=== PATIENT | male | born 1965 | race Caucasian/White ===

== ENCOUNTER 2019-08-27 08:27 | Outpatient (CLI) | payer OTHER, SELFPAY ==
--- NOTE | 2019-08-27 | XRR_ITS ---
PROCEDURE INFORMATION: Exam: XR Chest, 2 Views Exam date and time: 08/28/2019 5:26 PM Age: 54 years old Clinical indication: Pre-operative exam; Cardiovascular screening and respiratory screening exam; Additional info: Pre op TECHNIQUE: Imaging protocol: XR of the chest Views: 2 views. COMPARISON: CR Chest 1 [place] [id number] 07/03/2019 6:11 AM FINDINGS: Lungs: Unremarkable. No consolidation. Pleural space: Unremarkable. No pleural effusion. No pneumothorax. Heart/Mediastinum: Unremarkable. No cardiomegaly. Bones/joints: Unremarkable. XR/XR chest 2V* [id number] IMPRESSION: No acute findings.
[2019-08-27 08:41] VITALS: BMI 28.1
--- NOTE | 2019-08-27 08:43 | ECG_ITS ---
NAME OF STUDY: LEXISCAN SESTAMIBI STRESS TEST INDICATION: Pre Operative Clearance FAX RESULTS TO [facility] [place] ATTN: CRITICAL CARE CLINICAL NURSE SPECIALIST FAX [phone] NOTE: Please note that this is the electrocardiogram portion of the Lexiscan/Sestamibi stress test. The perfusion scan will be documented separately. DATA: Baseline heart rate was 59 beats per minute. Baseline blood pressure was 145/91 millimeters of mercury. Target heart rate was 167. Maximum heart rate achieved was 95. which was 56 % of the predicted target heart rate. Maximum blood pressure was 163/97 millimeters of mercury. The reason for ending the test was completion of the protocol. The patient did not experience any symptoms. ELECTROCARDIOGRAM: BASELINE: Sinus bradycardia. Normal axis. Interventricular conduction delay, no ST-T changes suggestive of ischemia noted. No arrhythmia noted. EXERCISE: After Lexiscan injection, no ST-T changes suggestive of ischemic noted. No arrhythmia noted. CONCLUSION: Please note due to baseline abnormality of the EKG specificity and sensitivity of the EKG portion of LexiScan MIBI stress test will be low 1. EKG not suggestive of ischemia 2. Lexiscan injection unremarkable. 3. Perfusion scan will be documented separately. Electronically Signed On 08-27-2019 18:46:04 CREDIT DEPARTMENT MANAGER by Jeff Eubanks M.D. [email or web address]
--- NOTE | 2019-08-27 08:54 | ECG_ITS ---
Measurements Intervals [place] Rate: 69 P: 47 WI: 185 QRS: -46 QRSD: 106 T: 29 QT: 392 QTc: 420 SINUS RHYTHM LEFT ANTERIOR FASCICULAR BLOCK [QRS AXIS <= -45, QR IN I, RS IN II] POSSIBLE LEFT VENTRICULAR HYPERTROPHY [VOLTAGE CRITERIA PLUS LAE OR QRS WIDENING] NONSPECIFIC ST & T-WAVE ABNORMALITY Compared to ECG 07/03/2019 09:14:12 Left anterior fascicular block now present T-wave abnormality now present Left-axis deviation no longer present Electronically Signed On 08-27-2019 17:12:55 SUPERVISING FIRE MARSHAL by Helene Acevedo M.D. [email or web address]
--- NOTE | 2019-08-27 09:17 | SUR.PREOP ---
Patient reports no pain pre procedure.
[2019-08-27 10:20] LABS: Alanine Aminotransferase 11 U/L (0-41); Albumin Level 4.3 g/dL (3.5-5.2); Alkaline Phosphatase 227 IU/L (40-130); Anion Gap 18.3 (5-19); Aspartate Amino Transferase 26 U/L (0-40); Blood Urea Nitrogen 28 mg/dL (6-20); Calcium 9.6 mg/Dl (8.6-10.0); Carbon Dioxide 25 mmol/L (22-29); Chloride 97 mmol/L (98-107); Globulin 3.1 g/dL (1.3-4.6); Glomerular Filtration Rate 7.4 mL/min (90-130); Glucose 106 mg/dL (74-109); Phosphorus 2.9 mg/dL (2.5-4.5); Potassium 3.3 mmol/L (3.5-5.1); Sodium 137 mmol/L (136-145); Total Bilirubin 0.4 mg/dL (0.15-1.2); Total Protein 7.4 g/dL (6.6-8.7)
[2019-08-27 10:25] LABS: Basophils % 0.4 %; Eosinophils # 0.1 10^3/uL (0.0-0.8); Eosinophils % 1.2 %; Hematocrit 40.4 % (42.0-52.0); Hemoglobin 12.9 g/dL (11.7-16.6); Lymphocytes # 1.8 10^3/uL (0.8-4.8); Lymphocytes % 21.6 %; Mean Corpuscular HGB Conc 31.9 g/dL (30.0-36.0); Mean Corpuscular Hemoglobin 27.7 pg (28.0-34.0); Mean Corpuscular Volume 86.7 fL (80-94); Monocytes # 0.5 10^3/uL (0.2-0.9); Neutrophils # 5.8 10^3/uL (1.8-7.7); Neutrophils % 70.6 %; Nucleated Red Blood Cells % 0 %; Platelet Count 291 10^3/cmm (130-400); Red Blood Count 4.66 10^6/uL (4.1-5.3); Red Cell Distribution Width 15.8 % (12.1-15.1); White Blood Count 8.2 10^3/uL (4.0-10.0)
--- NOTE | 2019-08-27 10:48 | SUR.PREOP ---
Patient report no pain or discomfort prior to the start of the procedure.
[2019-08-27] MEDS: regadenoson 0.4 Mg/5 ml Syringe IVP (10:49)
--- NOTE | 2019-08-27 10:57 | SUR.PREOP ---
Patient report no pain or discomfort prior to the start of the procedure.
[2019-08-27 10:58] VITALS: BP 153/89; PULSE 75
[2019-08-27 11:13] LABS: Prostate Specific Antigen 0.31 ng/mL (0-4)
[2019-08-27 11:15] LABS: Calcium 9.1 mg/dL (8.8-10.2); Parathyroid Hormone 301.8 pg/mL (15-65)
[2019-08-31 11:20] LABS: Anti-HIV 1 and 2 AB & P24 AG Non-Reactive (Nonreactive)
[2019-08-31 11:28] LABS: Hepatitis B Surface Antibody 20.75
[2019-08-31 13:02] LABS: HEP C RNA Viral Load Quant <1.18 NOT DETECTED Log IU/mL (NOT DETECTED); HEP C RNA Viral Load Quant <15 NOT DETECTED IU/mL (NOT DETECTED)
== END 2019-08-27 08:28 | disposition home or self-care (01) ==
PROVIDERS: Family Provider Internal Medicine; Visit Provider Internal Medicine Cardiovascular Disease
DX: N18.6 End stage renal disease (principal); I44.4 Left anterior fascicular block; Z13.6 Encounter for screening for cardiovascular disorders; Z13.83 Encounter for screening for respiratory disorder NEC
CPT/HCPCS: 36415; 71046; 78452; 80053; 82310; 83970; 84100; 84153; 85025; 86704; 87340; 87522; 93005; 93017; A9500; J2785

== ENCOUNTER 2019-12-30 01:07 | Emergency (ER) | payer OTHER, MEDICARE, SELFPAY ==
[2019-12-30 01:12] VITALS: BP 137/94; PULSE 84; RESP 22; TEMP 36.7; O2SAT 94; BMI 25.7
--- NOTE | 2019-12-30 01:29 | XR_ITS ---
WS: [id number] XR chest 1V portable [id number] REASON FOR EXAM: cough/congestion FINDINGS: Alveolar infiltrate is noted in the basilar portion left lower lung. The heart is borderline enlarged. The remaining lung campos are clear with no additional pneumonia, pleural effusion, pulmonary edema, no pneumothorax. The hilum and apices normal. XR/XR chest 1V portable [id number] IMPRESSION: Left lower lung pneumonia
--- NOTE | 2019-12-30 01:33 | ED_ITS ---
HPI - SOB/Dyspnea General: Chief Complaint: Shortness of Breath/Dyspnea Stated Complaint: sob Time Seen by Provider: 12/30/19 01:18 Source: patient Mode of arrival: ambulatory Limitations: no limitations History of Present Illness: HPI Narrative: Patient is a 54-year-old male who presents to ED today with a complaint of shortness of breath. Patient states he began feeling short of breath earlier today. He has noticed a productive cough over the past few days. He has not been running fevers. No hemoptysis. Patient denies history of COPD, asthma, emphysema. He is a former smoker but quit 20+ years ago. Patient is a chronic dialysis patient. He has a right arm fistula that is no longer used. Patient states he does peritoneal dialysis nightly. States he did not do peritoneal dialysis this evening as he wanted to come to the emergency department for evaluation. He is not having any chest pains. MD elicited complaint: shortness of breath Onset (ago): day(s) (started today) Exacerbating factors: nothing Relieving factors: nothing Associated symptoms: Reports chest congestion; Deny abdominal pain, chest pain, fever(s), hemoptysis, lightheadedness, nausea, palpitations, syncope or vomiting Treatment prior to arrival: none Review of Systems Const: Denies: fever, chills, body aches, fatigue or malaise Eyes: Denies: change in vision, blurry vision or photophobia Card: Denies: chest pain, palpitations, irregular heart rhythm, lightheadedness, syncope or shortness of breath on exertion Resp: Reports: shortness of breath, productive cough and chest congestion; Denies: wheezing, pain on inspiration or coughing up blood GI: Denies: abdominal pain, nausea, vomiting, heartburn/indigestion or diarrhea : Denies: flank pain, difficulty urinating, painful urination, urinary frequency, urinary urgency or urinary hesitancy Musc: Denies: neck pain, back pain or joint pain Skin/Breast: Denies: rash Neuro: Denies: headache, numbness in extremities, weakness in extremities or changes in sensation PFS ED PFSH: Family History (Updated 08/27/19 @ 09:16 by Jadon Hwang RN) Other CAD (coronary artery disease) Social History (Updated 08/27/19 @ 09:16 by Jadon Hwang RN) Smoking and tobacco status: former smoker Second hand smoke exposure: No Smoking risk assessment/counseling performed?: No Physical Exam Const: COMMON NORMALS: no apparent distress, average body habitus, oriented x3 , no limitations, healthy appearing, alert and well nourished HENMT: COMMON NORMALS: normocephalic and head/scalp atraumatic HEAD & SCALP: normocephalic and atraumatic Chest: COMMONS NORMALS: inspection of chest normal and palpation of chest normal Resp: COMMON NORMALS: normal respiratory effort and clear to auscultation bilaterally AUSCULTATION: clear to auscultation bilaterally Cardio: COMMON NORMALS: regular rate and regular rhythm RATE: regular rate RHYTHM: regular rhythm GI: COMMON NORMALS: normal to inspection, nondistended, normoactive bowel sounds, soft to palpation, non-tender, no hepatosplenomegaly, no masses and no bruits PALPATION: Yes soft and Yes no hepatosplenomegaly OTHER: peritoneal dialysis port : COMMON NORMALS: Yes no CVA tenderness BLADDER/KIDNEY EXAM: Yes no CVA tenderness Back/Pelvis: COMMON NORMALS: no CVA tenderness and straight leg raise negative bilaterally LUMBAR SPINE/LOWER BACK: Yes lumbar spinal tenderness (chronic ) Extremity: OTHER: hemodialysis fistula to R UE Neuro: COMMON NORMALS: oriented x3 SENSORIUM/ORIENTATION: Yes alert Skin: COMMON NORMALS: no rashes or lesions noted GENERAL SKIN EXAM: no rashes or lesions noted Course Vital Signs: Vital signs: Vital Signs Temperature 98.0 F 12/30/19 01:12 Pulse Rate 76 12/30/19 02:52 Respiratory Rate 18 12/30/19 02:52 Blood Pressure 132/89 12/30/19 02:52 Pulse Oximetry 96 12/30/19 02:52 MDM - SOB/Dyspnea MDM Narrative: Medical decision making narrative: Patient has a left lower lobe pneumonia on his CXR. He is not tachycardic, tachypneic, febrile or hypoxic. This can be managed as an outpatient. On patient's chemistry panel he is noted to have a calcium of 6.4. He has no EKG changes. He has no physical complaints of hypocalcemia. His BUN/Cr is slightly above baseline most likely because he has not received his dialysis this evening. Patient will be given 2g IV calcium gluconate here and recommended he finish his peritoneal dialysis as soon as he gets home. Will have patient follow-up with PCP this week to repeat blood work. Will place him on Augmentin and Azithromycin at home for his pneumonia. Augmentin will be adjusted for renal dosing. Case discussed with Dr. Gomez who agrees with plan. Lab Data: Labs: Lab Results 12/30/19 12/30/19 Range/Units 01:12 01:12 WBC 7.8 (4.0-10.0) 10^3/ uL RBC 3.77 L (4.1-5.3) 10^6/u L Hgb 10.3 L (11.7-16.6) g/dL Hct 33.2 L (42.0-52.0) % MCV 88.1 (80-94) fL MCH 27.3 L (28.0-34.0) pg MCHC 31.0 (30.0-36.0) g/dL RDW 14.3 (12.1-15.1) % Plt Count 164 (130-400) 10^3/c mm MPV 10.5 H (7.4-10.4) fL Neut % (Auto) 61.8 % Lymph % (Auto) 24.4 % [place] % (Auto) 9.1 % Eos % (Auto) 3.9 % Baso % (Auto) 0.5 % Neut # (Auto) 4.8 (1.8-7.7) 10^3/u L Lymph # (Auto) 1.9 (0.8-4.8) 10^3/u L [place] # (Auto) 0.7 (0.2-0.9) 10^3/u L Eos # (Auto) 0.3 (0.0-0.8) 10^3/u L Baso # (Auto) 0.0 (0.0-0.1) 10^3/u L Nucleated RBC % (a uto) 0 % Nucleated RBCs # 0.0 /100WBC Sodium 136 (136-145) mmol/L Potassium 5.2 H (3.5-5.1) mmol/L Chloride 97 L (98-107) mmol/L Carbon Dioxide 24 (22-29) mmol/L Anion Gap 20.2 H (5-19) BUN 60 H (6-20) mg/dL Creatinine 9.6 H* (0.7-1.2) mg/dL GFR Calculation 5.7 L (90-130) mL/min Glucose 131 H (65-115) mg/dL Calculated Osmolal ity 283 L (285-295) mOsm/k g Calcium 6.4 L (8.5-10.5) mg/dL Total Bilirubin 0.3 (0.15-1.2) mg/dL AST 26 (0-40) U/L ALT 11 (0-41) U/L Alkaline Phosphata se 138 H (40-130) IU/L Total Protein 6.5 L (6.6-8.7) g/dL Albumin 3.2 L (3.5-5.2) g/dL Globulin 3.3 (1.3-4.6) g/dL Imaging Data^: CXR: Radiologist's impression: [address] [address] XRay Report Signed Patient: Mark Mccabe Unit #: [id number] : 1965 Age/Sex: 54 / M ADM Date: 12/30/19 Loc: ER Room/Bed: Attending Dr: Ordering Provider/Ordering MD: Amanda Sosa Date of Service: 12/30/19 Procedure(s): XR chest 1V portable [id number] Accession Number(s): [id number] Report Number: [id number] WS: [id number] XR chest 1V portable [id number] REASON FOR EXAM: cough/congestion FINDINGS: Alveolar infiltrate is noted in the basilar portion left lower lung. The heart is borderline enlarged. The remaining lung campos are clear with no additional pneumonia, pleural effusion, pulmonary edema, no pneumothorax. The hilum and apices normal. XR/XR chest 1V portable [id number] IMPRESSION: Left lower lung pneumonia Dictated By: Koko Reno DO Signed By: Koko Reno DO Signed Date/Time: 12/30/19802 DD/ 1 Discharge Plan Discharge Patient Disposition: Home, Self-Care Clinical Impression: Hypocalcemia Pneumonia Qualifiers: Pneumonia type: due to unspecified organism Laterality: left Lung location: lower lobe of lung Qualified Code(s): J18.9 - Pneumonia, unspecified organism Condition: Stable Prescriptions: New amoxicillin-pot clavulanate 250-125 mg tablet 1 tab PO Q12H 7 Days Qty: 14 RF: 0 azithromycin 500 mg tablet See Rx Instructions .ROUTE .COMPLEX Qty: 3 RF: 0 Discharge Orders: Discharge Order (Routine); Ordered 12/30/19 Ordered By: Amanda Sosa Referrals: Jhony Kaur, [Family Provider] - Activity Restrictions/Additional Instructions: Finish your peritoneal dialysis when you return home. Fill and start your antibiotics immediately. Contact Dr. Kaur's office tomorrow for further instructions. You need to have your labs rechecked this week to make sure your calcium and the remainder of your labs have improved. Return to the emergency department for any worsening shortness of breath, chest pain, difficulty breathing, fevers greater than 100.4 Discharge Date/Time: 12/30/19 02:56 Coding Level of Care Code ED Pediatric Hospitalist for Audrey Almanza Exam Comprehensive
[2019-12-30 01:45] LABS: Basophils % 0.5 %; Eosinophils # 0.3 10^3/uL (0.0-0.8); Eosinophils % 3.9 %; Hematocrit 33.2 % (42.0-52.0); Hemoglobin 10.3 g/dL (11.7-16.6); Lymphocytes # 1.9 10^3/uL (0.8-4.8); Lymphocytes % 24.4 %; Mean Corpuscular Hemoglobin 27.3 pg (28.0-34.0); Mean Corpuscular Volume 88.1 fL (80-94); Mean Platelet Volume 10.5 fL (7.4-10.4); Monocytes # 0.7 10^3/uL (0.2-0.9); Monocytes % 9.1 %; Neutrophils # 4.8 10^3/uL (1.8-7.7); Neutrophils % 61.8 %; Nucleated Red Blood Cells % 0 %; Platelet Count 164 10^3/cmm (130-400); Red Blood Count 3.77 10^6/uL (4.1-5.3); Red Cell Distribution Width 14.3 % (12.1-15.1); White Blood Count 7.8 10^3/uL (4.0-10.0)
[2019-12-30 01:56] VITALS: BP 137/94; PULSE 89; RESP 16; O2SAT 96
[2019-12-30 02:00] LABS: Alanine Aminotransferase 11 U/L (0-41); Albumin Level 3.2 g/dL (3.5-5.2); Alkaline Phosphatase 138 IU/L (40-130); Anion Gap 20.2 (5-19); Aspartate Amino Transferase 26 U/L (0-40); Blood Urea Nitrogen 60 mg/dL (6-20); Calcium 6.4 mg/dL (8.5-10.5); Carbon Dioxide 24 mmol/L (22-29); Chloride 97 mmol/L (98-107); Globulin 3.3 g/dL (1.3-4.6); Glomerular Filtration Rate 5.7 mL/min (90-130); Glucose 131 mg/dL (65-115); Osmolality Calculated 283 mOsm/kg (285-295); Potassium 5.2 mmol/L (3.5-5.1); Sodium 136 mmol/L (136-145); Total Bilirubin 0.3 mg/dL (0.15-1.2); Total Protein 6.5 g/dL (6.6-8.7)
[2019-12-30] MEDS: calcium gluconate 0.1 gm/mL 10% SDV 10mL 2 GM IV (02:39)
[2019-12-30 02:52] VITALS: BP 132/89; PULSE 76; RESP 18; O2SAT 96
--- NOTE | 2019-12-30 06:14 | ECG_ITS ---
Measurements Intervals [place] Rate: 70 P: 35 IN: 184 QRS: -43 QRSD: 96 T: 50 QT: 413 QTc: 448 SINUS RHYTHM LEFT AXIS DEVIATION [QRS AXIS < -30] PATTERN CONSISTENT WITH PULMONARY DISEASE NONSPECIFIC T-WAVE ABNORMALITY Compared to ECG 08/27/2019 09:30:43 Left-axis deviation now present Left anterior fascicular block no longer present T-wave abnormality still present Electronically Signed On 12-30-2019 17:15:32 CDT by Jesus Rocha M.D. [id number]
== END 2019-12-30 02:56 | disposition home or self-care (01) ==
PROVIDERS: Emergency Provider Physician Assistant; Family Provider Internal Medicine
DX: J18.9 Pneumonia, unspecified organism (principal); E83.51 Hypocalcemia; Z87.891 Personal history of nicotine dependence; I25.10 Atherosclerotic heart disease of native coronary artery without angina pectoris
CPT/HCPCS: 12345; 71045; 80053; 85025; 93005; 96374; 99282; 99283; J0610

== ENCOUNTER 2020-02-02 12:57 | Emergency (ER) | payer OTHER, MEDICARE, SELFPAY ==
[2020-02-02 13:06] VITALS: BP 164/107; PULSE 73; RESP 18; TEMP 36.7; O2SAT 100; BMI 25.9
--- NOTE | 2020-02-02 13:14 | ECG_ITS ---
Measurements Intervals [place] Rate: 59 P: 34 CA: 180 QRS: -45 QRSD: 101 T: 56 QT: 433 QTc: 431 SINUS BRADYCARDIA LEFT ANTERIOR FASCICULAR BLOCK [QRS AXIS <= -45, QR IN I, RS IN II] MODERATE VOLTAGE CRITERIA FOR LVH, CONSIDER NORMAL VARIANT [MEETS CRITERIA IN O ONE OF: R(aVL), S(V1), R(V5), R(V5/V6)+S(V1)] NONSPECIFIC T-WAVE ABNORMALITY Compared to ECG 12/30/2019 01:26:31 Left anterior fascicular block now present Sinus rhythm no longer present Left-axis deviation no longer present T-wave abnormality still present Electronically Signed On 02-02-2020 19:35:39 CDT by Darron Castanon M.D. [email or web address]
--- NOTE | 2020-02-02 13:17 | CT_ITS ---
WS: [id number] CT ABDOMEN AND PELVIS NONCONTRAST HISTORY: abdominal pain TECHNIQUE: Imaging performed through the abdomen and pelvis. Coronal and sagittal reformats are submi tted. All CT scans at [facility] use at least one of these dose optimization techniques: automated exposure control; mA and/or kV adjustment per patient size (includes targeted exams where d ose is matched to clinical indication); or iterative reconstruction. DLP: 922.23 mGy.cm COMPARISON: 04/28/2019 Lower thorax: Lung bases are clear. No hiatal hernia. Mild cardiomegaly. Liver: Normal, no mass or intrahepatic dilatation. Gallbladder: Prior cholecystectomy. Pancreas: Normal. Spleen: Normal. Adrenal glands: Normal. Right kidney: Perinephric stranding with mild atrophy. No obstruction. Left kidney: Perinephric stranding with mild atrophy and no obstruction. Mild atherosclerosis aorta. No aneurysm. There is a small amount of free fluid in the abdomen and pelvis which is probably related to the heather ent's peritoneal dialysis. Dialysis catheter is coiled in the pelvis. GI tract: Prior appendectomy. No GI tract obstruction. Numerous diverticula in the sigmoid colon. Abdominal wall: Intact. Pelvis: Free fluid in the pelvis from peritoneal dialysis. Minimally distended urinary bladder. No ad enopathy. Osseous structures: Bilateral femoral head osteonecrosis. CT/CT abdomen pelvis wo con [id number] IMPRESSION: 1. Prior cholecystectomy and appendectomy. 2. Small amount of free fluid in the abdomen and pelvis probably related to pe ritoneal dialysis. 3. No GI tract obstruction or free air. 4. Moderate perinephric stranding around each kidney. Probably chronic but acu te urinary tract infection may appear similar.
--- NOTE | 2020-02-02 13:18 | W.ED.ABDPA2 ---
HPI - Abdominal Pain General: Chief Complaint: Abdominal Pain Stated Complaint: abd pain Time Seen by Provider: 02/02/20 13:05 History of Present Illness: HPI narrative: This patient is a 54-year-old male presenting with abdominal pain for about a week and a half. He reports that he saw his doctor about a week ago and they thought he might have pancreatitis. They did some blood work but he has not heard anything about the results. He was instructed to go to the ER if he was not feeling better in a few days. The pain is been consistent and is worse this morning. Up until today he has been able to eat normally. Today he did not have much appetite and eating just a few crackers upset his stomach. He denies nausea or vomiting but his notes that he takes nausea medicine routinely. He has had a low-grade fever over 99. He is a peritoneal dialysis patient takes his temperature twice a day and says it is normally 96. He initially told me that nothing made the pain better or worse and that it was constant. When I laid him back for abdominal exam he then told me that laying back definitely made it worse. He had been on hemodialysis previously and switched to peritoneal dialysis in July. Since then he has had a couple of complications with it. The first was that he was on medications which were not cleared by peritoneal dialysis and he became toxic from those. He then had a problem with altered mental status well having a bout of pneumonia. He has never had infection related complications. He said there have been no changes with his peritoneal dialysis recently. There is been no cloudy fluid. His pelletizer is Dr. Sahu. He has had his gallbladder and appendix removed. He is also had an umbilical hernia. He takes morphine for chronic neck pain. He has a remote history of bleeding ulcers. MD elicited complaint: abdominal pain Pertinent past history: other (Peritoneal dialysis) Onset (ago): week(s) (-08/27) Pain Consistency: constant Location: Epigastric Severity: moderate Quality: stabbing Radiation: none Migration to: no migration Exacerbating factors: other (Laying back) Relieving factors: nothing Associated Symptoms: Reports anorexia (Just today); Denies chills, fever(s), nausea and vomiting Review of Systems General: Reports: 10 or more systems reviewed and unremarkable except in HPI and below Const: Denies: fever(s), chills, fatigue or malaise Eyes: Denies: change in vision ENMT: Denies: odynophagia Card: Denies: chest pain or swelling of feet/ankles Resp: Denies: dyspnea, productive cough or non-productive cough GI: Reports: abdominal pain; Denies: nausea or vomiting : Denies: flank pain Musc: Reports: neck pain; Denies: back pain Skin/Breast: Denies: rash Neuro: Denies: headache(s), numbness in extremities or weakness in extremities Claudio/Lymph: Denies: easy bruising or easy bleeding PFSH ED PFSH: Medical History Cervical disc disorder with myelopathy of mid-cervical region Spondylolisthesis, cervical region Surgical History History of arthroscopic knee surgery 3x History of arthroscopy of right shoulder History of carpal tunnel surgery of right wrist Dr. Snider History of cholecystectomy History of umbilical hernia repair Peritoneal dialysis catheter in place Family History Father CAD (coronary artery disease) Mother Arthritis Social History Smoking and tobacco status: former smoker Physical Exam Const: COMMON NORMALS: no acute distress, patient oriented x3, no limitations and alert GENERAL APPEARANCE: cooperative and comfortable HENMT: HEAD & SCALP: normal to inspection FACE & SINUS: normal facial exam Eye: GENERAL EYE: appearance normal, both eyes and all related structures Neck/C-Spine: COMMON NORMALS: supple, no meningeal signs and no JVD Chest: COMMONS NORMALS: normal inspection of the chest Resp: COMMON NORMALS: normal respiratory effort, No use of accessory muscles and clear to auscultation bilaterally AUSCULTATION: clear to auscultation bilaterally Cardio: COMMON NORMALS: no JVD, regular rate, regular rhythm and No murmurs present (Cardio) RATE: regular rate RHYTHM: regular rhythm GI: INSPECTION: Yes normal to inspection (Peritoneal dialysis catheter in the left lower quadrant.) and No abdominal distension AUSCULTATION: Yes normoactive bowel sounds PALPATION: Yes Tenderness to palpation present (GI) (Moderate) Back/Pelvis: COMMON NORMALS: thoracic and lumbar spine normal to inspection Extremity: COMMON NORMALS: normal to inspection Neuro: COMMON NORMALS: patient oriented x3, moves all extremities, no focal motor deficits and no sensory deficits noted SENSORIUM/ORIENTATION: Yes alert MENINGEAL SIGNS: Yes no meningeal signs Psych: COMMON NORMALS: mental status grossly normal, cooperative and normal affect Skin: COMMON NORMALS: no rashes or lesions noted and turgor normal GENERAL SKIN EXAM: no rashes or lesions noted and turgor normal Course Vital Signs: Vital signs: Vital Signs Temperature 98.1 F 02/02/20 13:06 Pulse Rate 63 02/02/20 17:23 Respiratory Rate 17 02/02/20 17:23 Blood Pressure 150/106 02/02/20 17:23 Pulse Oximetry 100 02/02/20 17:23 MDM - Abdominal Pain MDM Narrative: Medical decision making narrative: 54-year-old male who is on peritoneal dialysis. He is presenting today with epigastric pain which is been constant for a week and a half or so. His work-up is really unremarkable with no fever, normal white count. His chemistry is not great but it is actually improved from labs he had done recently at [facility]. His had brought those with her to show me. He already takes omeprazole and I will switch him to esomeprazole for treatment of possible ulcers or gastritis. A CT was done which did not show much other than some stranding around the kidneys which could be related to a kidney infection. The urine was equivocally infected and cultures have been sent. Vanda treat him empirically with cephalexin. We discussed the possibility of a spontaneous bacterial peritonitis. He and his have an understanding of the significance of that. Clinically I do not think he has that and as the symptoms have been going on for over a week and a half I would expect to see some evidence in his labs or systemic signs. They do understand return precautions and need for follow-up. Lab Data: Labs: Lab Results 02/02/20 02/02/20 02/02/20 Range/Units 13:33 13:33 13:33 WBC 5.3 (4.0-10.0) 10^3/ uL RBC 4.52 (4.1-5.3) 10^6/u L Hgb 12.4 (11.7-16.6) g/dL Hct 39.9 L (42.0-52.0) % MCV 88.3 (80-94) fL MCH 27.4 L (28.0-34.0) pg MCHC 31.1 (30.0-36.0) g/dL RDW 14.9 (12.1-15.1) % Plt Count 139 (130-400) 10^3/c mm MPV 10.6 H (7.4-10.4) fL Neut % (Auto) 54.8 % Lymph % (Auto) 32.1 % [place] % (Auto) 7.6 % Eos % (Auto) 5.1 % Baso % (Auto) 0.4 % Neut # (Auto) 2.9 (1.8-7.7) 10^3/u L Lymph # (Auto) 1.7 (0.8-4.8) 10^3/u L [place] # (Auto) 0.4 (0.2-0.9) 10^3/u L Eos # (Auto) 0.3 (0.0-0.8) 10^3/u L Baso # (Auto) 0.0 (0.0-0.1) 10^3/u L Nucleated RBC % (a uto) 0 % Nucleated RBCs # 0.0 /100WBC Sodium 133 L (136-145) mmol/L Potassium 5.6 H (3.5-5.1) mmol/L Chloride 97 L (98-107) mmol/L Carbon Dioxide 20 L (22-29) mmol/L Anion Gap 21.6 H (5-19) BUN 59 H (6-20) mg/dL Creatinine 9.6 H* (0.7-1.2) mg/dL GFR Calculation 5.7 L (90-130) mL/min Glucose 99 (65-115) mg/dL Calculated Osmolal ity 275 L (285-295) mOsm/k g Lactate 1.1 (0.5-2.2) mmol/L Calcium 9.0 (8.5-10.5) mg/dL Total Bilirubin 0.4 (0.15-1.2) mg/dL AST 21 (0-40) U/L ALT 16 (0-41) U/L Alkaline Phosphata se 116 (40-130) IU/L Troponin T Baselin e (0-15) ng/L Troponin T 120 Min [place] (0-15) ng/L Delta Troponin T (0-10) ABS# Total Protein 6.4 L (6.6-8.7) g/dL Albumin 3.0 L (3.5-5.2) g/dL Globulin 3.4 (1.3-4.6) g/dL Lipase 44 (13-60) U/L Procalcitonin 0.25 (0-0.5) ng/mL Urine Color (Yellow) Urine Appearance (CLEAR) Urine pH (5-7) Ur Specific Gravit y (1.005-1.030) Urine Protein (Negative) Urine Glucose (UA) (Normal) Urine Ketones (Negative) Urine Blood (Negative) Urine Nitrate (Negative) Urine Bilirubin (NEGATIVE) Prot Sulfosalicyli c Acd (Negative) Urine Urobilinogen (Negative) mg/dL Ur Leukocyte Emi ase (Negative) Urine RBC (0-2) /hpf Urine WBC (0-5) /hpf Ur Squamous Epith Cells (0-5) Urine Bacteria (NONE) Hyaline Casts 02/02/20 02/02/20 02/02/20 Range/Units 13:33 14:11 15:29 WBC (4.0-10.0) 10^3/ uL RBC (4.1-5.3) 10^6/u L Hgb (11.7-16.6) g/dL Hct (42.0-52.0) % MCV (80-94) fL MCH (28.0-34.0) pg MCHC (30.0-36.0) g/dL RDW (12.1-15.1) % Plt Count (130-400) 10^3/c mm MPV (7.4-10.4) fL Neut % (Auto) % Lymph % (Auto) % [place] % (Auto) % Eos % (Auto) % Baso % (Auto) % Neut # (Auto) (1.8-7.7) 10^3/u L Lymph # (Auto) (0.8-4.8) 10^3/u L [place] # (Auto) (0.2-0.9) 10^3/u L Eos # (Auto) (0.0-0.8) 10^3/u L Baso # (Auto) (0.0-0.1) 10^3/u L Nucleated RBC % (a uto) % Nucleated RBCs # /100WBC Sodium (136-145) mmol/L Potassium (3.5-5.1) mmol/L Chloride (98-107) mmol/L Carbon Dioxide (22-29) mmol/L Anion Gap (5-19) BUN (6-20) mg/dL Creatinine (0.7-1.2) mg/dL GFR Calculation (90-130) mL/min Glucose (65-115) mg/dL Calculated Osmolal ity (285-295) mOsm/k g Lactate (0.5-2.2) mmol/L Calcium (8.5-10.5) mg/dL Total Bilirubin (0.15-1.2) mg/dL AST (0-40) U/L ALT (0-41) U/L Alkaline Phosphata se (40-130) IU/L Troponin T Baselin e 126 H* (0-15) ng/L Troponin T 120 Min [place] 114.2 H (0-15) ng/L Delta Troponin T -11.8 L (0-10) ABS# Total Protein (6.6-8.7) g/dL Albumin (3.5-5.2) g/dL Globulin (1.3-4.6) g/dL Lipase (13-60) U/L Procalcitonin (0-0.5) ng/mL Urine Color Yellow (Yellow) Urine Appearance Clear (CLEAR) Urine pH 8 H (5-7) Ur Specific Gravit y 1.010 (1.005-1.030) Urine Protein 3+ H (Negative) Urine Glucose (UA) 1+ (Normal) Urine Ketones Negative (Negative) Urine Blood 3+ H (Negative) Urine Nitrate Negative (Negative) Urine Bilirubin Neg (NEGATIVE) Prot Sulfosalicyli c Acd Positive (Negative) Urine Urobilinogen Norm (Negative) mg/dL Ur Leukocyte Emi ase Negative (Negative) Urine RBC 25-40 H (0-2) /hpf Urine WBC 0-4 H (0-5) /hpf Ur Squamous Epith Cells 0-4 H (0-5) Urine Bacteria 2+ H (NONE) Hyaline Casts 0-4 H EKG Data ^: EKG 1: EKG interpretation date: 02/02/20 EKG interpretation time: 13:57 Interpretation: Sinus bradycardia with a rate of 59. Left anterior fascicular block. Borderline LVH. QRS duration is [address] segment changes consistent with ischemia. Discharge Plan Discharge Patient Disposition: Home, Self-Care Clinical Impression: Peritoneal dialysis catheter in place Abdominal pain Qualifiers: Abdominal location: epigastric Qualified Code(s): R10.13 - Epigastric pain Condition: Stable Prescriptions: New esomeprazole magnesium 40 mg capsule,delayed release(DR/EC) 40 mg PO DAILY 28 Days Qty: 28 RF: 0 cephalexin 500 mg capsule 500 mg PO TID 7 Days Qty: 21 RF: 0 Discontinued omeprazole 20 mg capsule,delayed release(DR/EC) 20 mg PO DAILY RF: 0 No Action allopurinol 100 mg tablet 100 mg PO DAILY RF: 0 metoprolol tartrate 50 mg tablet 50 mg PO DAILY RF: 0 atorvastatin 10 mg tablet 10 mg PO DAILY RF: 0 tamsulosin 0.4 mg capsule 0.4 mg PO DAILY RF: 0 fluticasone propionate 50 mcg/actuation spray,suspension 2 spray INTRANASAL DAILY RF: 0 cholecalciferol (vitamin D3) 25 mcg (1,000 unit) capsule 25 mcg PO DAILY RF: 0 morphine 15 mg tablet extended release 15 mg PO Q4H RF: 0 amlodipine 10 mg tablet 10 mg PO DAILY RF: 0 ondansetron HCl 4 mg tablet 4 mg PO Q8H RF: 0 spironolactone 25 mg Tablet 25 mg PO DAILY RF: 0 Tums 200 mg calcium (500 mg) Tablet,Chewable 200 mg PO BID RF: 0 megestrol 40 mg Tablet 40 mg PO DAILY RF: 0 Auryxia 210 mg iron Tablet See Rx Instructions .ROUTE .COMPLEX RF: 0 duloxetine 40 mg Capsule,Delayed Release(Dr/Ec) 40 mg PO DAILY RF: 0 Discharge Orders: Discharge Order (Routine); Ordered 02/02/20 Ordered By: Malina Roldan Referrals: NOT ON FILE,DOCTOR [Primary Care Provider] - Jhony Kaur DO [Family Provider] - Discharge Diet: Usual diet Discharge Activity: Resume usual activity Patient Instructions: Abdominal Pain (ED) Activity Restrictions/Additional Instructions: Return to the emergency department immediately for fever, increased pain, vomiting, cloudy dialysis fluid. Follow-up with Dr. Kaur as planned next week. Discharge Date/Time: 02/02/20 17:23 Coding Level of Care Code ED [employer] for Chg Fwd Exam Comprehensive
[2020-02-02 13:36] VITALS: PULSE 73; RESP 17; O2SAT 100
[2020-02-02 13:40] LABS: Basophils % 0.4 %; Eosinophils # 0.3 10^3/uL (0.0-0.8); Eosinophils % 5.1 %; Hematocrit 39.9 % (42.0-52.0); Hemoglobin 12.4 g/dL (11.7-16.6); Lymphocytes # 1.7 10^3/uL (0.8-4.8); Lymphocytes % 32.1 %; Mean Corpuscular HGB Conc 31.1 g/dL (30.0-36.0); Mean Corpuscular Hemoglobin 27.4 pg (28.0-34.0); Mean Corpuscular Volume 88.3 fL (80-94); Mean Platelet Volume 10.6 fL (7.4-10.4); Monocytes # 0.4 10^3/uL (0.2-0.9); Monocytes % 7.6 %; Neutrophils # 2.9 10^3/uL (1.8-7.7); Neutrophils % 54.8 %; Nucleated Red Blood Cells % 0 %; Platelet Count 139 10^3/cmm (130-400); Red Blood Count 4.52 10^6/uL (4.1-5.3); Red Cell Distribution Width 14.9 % (12.1-15.1); White Blood Count 5.3 10^3/uL (4.0-10.0)
[2020-02-02 13:59] LABS: Lactate (Lactic Acid level) 1.1 mmol/L (0.5-2.2)
[2020-02-02 14:09] LABS: Troponin(5th) Baseline 126 ng/L (0-15)
[2020-02-02 14:10] LABS: Procalcitonin 0.25 ng/mL (0-0.5)
[2020-02-02 14:12] VITALS: RESP 17; O2SAT 100
[2020-02-02 14:21] LABS: Alanine Aminotransferase 16 U/L (0-41); Alkaline Phosphatase 116 IU/L (40-130); Anion Gap 21.6 (5-19); Aspartate Amino Transferase 21 U/L (0-40); Blood Urea Nitrogen 59 mg/dL (6-20); Carbon Dioxide 20 mmol/L (22-29); Chloride 97 mmol/L (98-107); Globulin 3.4 g/dL (1.3-4.6); Glomerular Filtration Rate 5.7 mL/min (90-130); Glucose 99 mg/dL (65-115); Lipase 44 U/L (13-60); Osmolality Calculated 275 mOsm/kg (285-295); Potassium 5.6 mmol/L (3.5-5.1); Sodium 133 mmol/L (136-145); Total Bilirubin 0.4 mg/dL (0.15-1.2); Total Protein 6.4 g/dL (6.6-8.7)
[2020-02-02 14:35] LABS: Add Urine Microscopic? YES; Bilirubin Urine Neg (NEGATIVE); Blood Urine 3+ (Negative); Glucose Urine UA 1+ (Normal); Ketones Urine Negative (Negative); Leukocyte Esterase Urine Negative (Negative); Nitrate Urine Negative (Negative); Protein Urine 3+ (Negative); Sulfosalicylic Acid Urine Positive (Negative); Urine Appearance Clear (CLEAR); Urine Color Yellow (Yellow); Urobilinogen Urine Norm (Negative); pH Urine 8 (5-7)
[2020-02-02 14:37] LABS: Bacteria Urine 2+; Hyaline Casts Urine 0-4; RBC Urine 25-40 /hpf (0-2); Squamous Epithelial Cell Urine 0-4 (0-5); WBC Urine 0-4 /hpf (0-5)
[2020-02-02 14:38] LABS: Add Urine Culture? Yes
[2020-02-02 15:01] VITALS: BP 139/84; PULSE 61; RESP 17; O2SAT 98
--- NOTE | 2020-02-02 16:17 | PC.NURSE ---
2 hr Trop 14.2 Delta -11.8
[2020-02-02 16:18] LABS: Troponin 5 2HR 114.2 ng/L (0-15); Troponin 5 2HR Delta -11.8 ABS# (0-10)
[2020-02-02 17:23] VITALS: BP 150/106; PULSE 63; RESP 17; O2SAT 100
== END 2020-02-02 17:23 | disposition home or self-care (01) ==
PROVIDERS: Emergency Provider Emergency Medicine; Family Provider Internal Medicine
DX: R10.13 Epigastric pain (principal); Z99.2 Dependence on renal dialysis; Z87.891 Personal history of nicotine dependence
CPT/HCPCS: 12345; 36415; 74176; 80053; 81001; 83605; 83690; 84145; 84484; 85025; 87086; 93005; 99283

== ENCOUNTER 2020-03-03 10:03 | Outpatient (CLI) | payer OTHER, MEDICARE, SELFPAY ==
--- NOTE | 2020-03-03 10:15 | MR_ITS ---
WS: [id number] MRI CERVICAL SPINE NONCONTRAST TECHNIQUE: Sagittal T1, T2 and STIR imaging. Axial T2, gradient, and fiesta imaging. CLINICAL INFORMATION: M50.020 Cervical disc disorder with myelopathy, mid-cervi... COMPARISON: MRI 03/12/2016 and 04/13/2015 FINDINGS: Some images degraded by patient motion. Slight exaggeration normal cervical lordosis. No high-grade central canal stenosis. Cord signal is no rmal. Mild disc bulging C5-C6 and C6-C7 appears stable to slightly improved. C2-C3: Normal. C3-C4: Mild disc osteophytic ridging. Mild left and no significant right foraminal narrowing. Mild fa cet arthropathy. Spinal canal is patent. C4-C5: Tiny central protrusion. Slight effacement of ventral thecal sac. Mild left and no significant right foraminal narrowing. C5-C6: Small central disc estimate protrusion with mild central canal stenosis. Moderate to severe le ft and moderate right bony foraminal narrowing. Moderate facet arthropathy. C6-C7: Disc osteophyte complex with endplate ridging. Mild central canal stenosis. Severe left and mi ld right bony foraminal narrowing. C7-T1: Mild disc osteophytic ridging. Moderate left foraminal narrowing. Right foramen is patent. Spi nal canal is patent. MR/MR cervical spin wo con* [id number] IMPRESSION: 1. Exaggeration of the normal cervical lordosis. Cord signal is normal. No hig h-grade central canal narrowing. 2. Mild central canal stenosis C5-C6 and C6-C7 with slight contact of the cerv ical cord due to small central disc osteophyte protrusions. 3. Severe bony foraminal narrowing left C5-C6 and left C6-C7. 4. Otherwise mild to moderate bony foraminal narrowing described above. 5. Overall findings not significantly changed since MRI . Disc osteoph yte protrusions at C5-C6 and C6-C7 appear stable to slightly improved.
== END 2020-03-03 10:04 | disposition home or self-care (01) ==
LOC: RADWPI 10:16
PROVIDERS: Family Provider Internal Medicine; PCP Internal Medicine; Visit Provider Licensed Practical Nurse
DX: M50.020 Cervical disc disorder with myelopathy, mid-cervical region, unspecified level (principal); M48.02 Spinal stenosis, cervical region; M25.78 Osteophyte, vertebrae
CPT/HCPCS: 72141

== ENCOUNTER 2020-03-07 08:13 | Outpatient (CLI) | payer OTHER, MEDICARE, SELFPAY ==
--- NOTE | 2020-03-07 09:30 | XR_ITS ---
WS: [id number] Lateral views of cervical spine in the flexion, extension and neutral positions. 03/07/2020 Clinical Data: Neck pain Comparison: Lateral cervical spine, 03/12/2016. Findings: There is disc space narrowing at C5-C6 and C6-C7 with anterior osteophyte formation. A minimal juan listhesis of C4 on C5 has not changed. No additional subluxation on flexion or extension is seen. The re is no limitation of motion on flexion or extension. XR/XR cervical spine fl/ex [id number] Impression: 1. Degenerative arthritic change at C5-C6 and C6-C7. 2. Minimal anterolisthesis of C4 on C5 unchanged.
== END 2020-03-07 08:14 | disposition home or self-care (01) ==
LOC: RADWPI 08:18
PROVIDERS: Family Provider Internal Medicine; PCP Internal Medicine; Visit Provider Licensed Practical Nurse
DX: M54.2 Cervicalgia (principal)
CPT/HCPCS: 72040

== ENCOUNTER 2020-03-17 07:42 | Outpatient (CLI) | payer OTHER, MEDICARE, SELFPAY ==
--- NOTE | 2020-03-17 08:00 | CT_ITS ---
WS: [id number] CT CERVICAL SPINE TECHNIQUE: Noncontrast CT of the cervical spine with coronal and sagittal reformatted images. CLINICAL INFORMATION: cervical pain COMPARISON: MRI March 03, 2020 DLP: 1913.[address] scans at [facility] use at least one of these dose optimization techniques: automat ed exposure control; mA and/or kV adjustment per patient size (includes targeted exams where dose is matched to clinical indication); or iterative reconstruction. FINDINGS: Mild spondylitic changes. Straightening of the normal cervical lordosis. No high-grade central canal narrowing. Disc osteophyte complexes at C5-C6 and C6-C7. C2-C3: Tiny central protrusion. Spinal canal and foramen are patent. C3-C4: Tiny central protrusion. Mild left and no significant right foraminal narrowing. Mild to moder ate left facet arthropathy. C4-C5: Tiny central protrusion. Slight contact of the cervical cord. Spinal canal and foramen are pat ent. Mild facet arthropathy. C5-C6: Disc osteophyte complex eccentric to the left. Mild to moderate left and no significant right foraminal narrowing. Tiny central disc osteophyte protrusion with slight contact of the cervical cord . Mild central canal stenosis. C6-C7: Disc osteophyte complex with endplate ridging. Moderate left and no significant right foramina l narrowing. Mild central canal stenosis. C7-T1: No significant disc bulging. Spinal canal and foramen are patent. Small right thyroid nodule measuring [address]/CT cervical spin wo con* [id number] IMPRESSION: 1. Straightening of the normal cervical lordosis. Mild spondylitic changes. 2. Disc osteophyte complex C5-C6 and C6-C7 with mild central canal stenosis. S mall central disc osteophyte protrusion at C5-C6 with slight contact of the cer vical cord. 3. Mild to moderate bony foraminal narrowing left C5-C6 and moderate left C6-C 7. 4. Cervical spine osteopenia with cystic change unchanged in appearance since 2016. 5. Small right thyroid nodule measuring 7 mm. This can be followed up with ult rasound on an elective basis.
== END 2020-03-17 07:43 | disposition home or self-care (01) ==
LOC: RADWPI 07:47
PROVIDERS: Family Provider Internal Medicine; PCP Internal Medicine; Visit Provider Specialist
DX: M25.78 Osteophyte, vertebrae (principal); M48.02 Spinal stenosis, cervical region; E04.1 Nontoxic single thyroid nodule; M85.88 Other specified disorders of bone density and structure, other site
CPT/HCPCS: 72125

== ENCOUNTER 2020-04-01 07:36 | Outpatient (CLI) | payer OTHER, SELFPAY ==
--- NOTE | 2020-04-01 07:39 | MR_ITS ---
WS: [id number] MRI THORACIC SPINE noncontrast. HISTORY: THORACIC SPINE PAIN COMPARISON: 03/26/[address] 07/18/2018 TECHNIQUE: Multiplanar sequences are performed in sagittal and axial planes. Posterior thoracic alignment is normal. No marrow edema or acute fractures. Signal within the cord is normal. T1-2: Normal. T2-3: Bilateral paracentral disc protrusions contacting the ventral thecal sac. RIGHT protrusion is larger than the LEFT. T3-4: Bilateral mild facet joint arthritis with central disc protrusion. No significant stenosis. T4-5: Small vertebral body osteophytes encroach upon the thecal sac. T5-6: Normal. T6-7: Small osteophytes with minimal encroachment upon the thecal sac. No stenosis. T7-8: Normal. T8-9: Small RIGHT paracentral disc osteophyte complex with mild contact on the lateral thecal sac. N o significant stenosis. T9-10: Bilateral paracentral disc protrusions and osteophytes causing mild contact on the thecal sac and displacement. There is mild central and bilateral foraminal stenosis. T10-11: Bilateral facet joint arthritis with mild foraminal narrowing. T11-12: Normal. Paravertebral soft tissues are negative. There is a small nodule in the inferior RIGHT thyroid 5 mm. MR/MR thoracic spin wo con* [id number] IMPRESSION: 1. Multilevel mild disc osteophyte disease and facet arthropathy throughout th e thoracic spine. No severe stenosis. 2. Most significant stenosis at T9-10 where there is mild central and bilatera l foraminal stenosis due to disc osteophyte disease. 3. Bilateral paracentral disc protrusions at T2-3, RIGHT greater than LEFT wit h mild contact on the ventral thecal sac. 4. Small vertebral body osteophyte slightly contacting the thecal sac at T4-5 and T6-7. 5. Mild contact on the RIGHT paracentral thecal sac at T8-9 due to disc osteop hyte disease. 6. As compared to the prior studies there has been a mild progression of disc osteophyte disease.
== END 2020-04-01 07:37 | disposition home or self-care (01) ==
LOC: RADSHAW 07:38
PROVIDERS: PCP Internal Medicine; Visit Provider Internal Medicine
DX: M25.78 Osteophyte, vertebrae (principal); M47.814 Spondylosis without myelopathy or radiculopathy, thoracic region; M48.04 Spinal stenosis, thoracic region; M51.24 Other intervertebral disc displacement, thoracic region
CPT/HCPCS: 72146

== ENCOUNTER → 2020-04-20 13:42 | Outpatient (BNVA) | payer OTHER, MEDICARE, SELFPAY | PROVIDERS: PCP Internal Medicine; Visit Provider Licensed Practical Nurse | DX: M50.020 Cervical disc disorder with myelopathy, mid-cervical region, unspecified level (principal); M43.12 Spondylolisthesis, cervical region; G62.89 Other specified polyneuropathies | CPT/HCPCS: 99214 ==

== ENCOUNTER 2020-05-13 00:42 | Emergency (ER) | payer OTHER, MEDICARE, SELFPAY ==
[2020-05-13 00:43] VITALS: BP 135/77; PULSE 91; RESP 18; TEMP 36.1; O2SAT 98; BMI 25.0
--- NOTE | 2020-05-13 00:49 | XRR_ITS ---
PROCEDURE INFORMATION: Exam: XR Chest, 1 View Exam date and time: 05/13/2020 1:03 AM Age: 55 years old Clinical indication: Condition or disease; Other: Peritoneal dialysis-became dizzy and nauseous; Patient HX: While completing peritoneal dialysis became dizzy and nauseous then vomited. ; Additional info: Dizziness TECHNIQUE: Imaging protocol: XR of the chest Views: 1 view. COMPARISON: CR XR chest 1V portable [id number] 12/30/2019 1:34 AM FINDINGS: Lungs: Emphysematous change and interstitial prominence. No acute airspace disease. Pleural space: No pleural effusion. Heart/Mediastinum: No cardiomegaly. Bones/joints: Contour irregularity in the incompletely visualized right humeral head, along with degenerative change. When correlating with the previous study, no significant interval changes are present. XR/XR chest 1V portable [id number] IMPRESSION: Emphysematous change and interstitial prominence.
--- NOTE | 2020-05-13 00:58 | ED_ITS ---
HPI - Dizziness General: Chief Complaint: Dizziness Stated Complaint: dizzy Time Seen by Provider: 05/13/20 00:49 Source: patient Mode of arrival: ambulatory Limitations: no limitations History of Present Illness: HPI Narrative: Patient reports that he was completing his peritoneal dialysis tonight and became dizzy and nauseous. He had to get up and go to the bathroom and threw up. Patient reports that since arriving to the ER he has improved some. Patient had a recent COVID test on Saturday the headaches come back negative today. Patient denies any fever. Daughter states occasionally patient does have to have hemodialysis to correct significant electrolyte abnormalities. Patient does continue to produce urine. Review of Systems General: Reports: 10 or more systems reviewed and unremarkable except in HPI and below Neuro: Reports: dizziness PFSH ED PFSH: Medical History (Updated 05/13/20 @ 02:12 by JAMAL Blanco) Axonal sensorimotor neuropathy Cervical disc disorder with myelopathy of mid-cervical region Paresthesias Spondylolisthesis, cervical region Surgical History History of arthroscopic knee surgery 3x History of arthroscopy of right shoulder History of carpal tunnel surgery of right wrist Dr. Snider History of cholecystectomy History of umbilical hernia repair Peritoneal dialysis catheter in place Family History Father CAD (coronary artery disease) Mother Arthritis Social History (Updated 04/20/20 @ 13:57 by Phyllis Freeman LPN) Smoking and tobacco status: former smoker Alcohol intake: never Household members: spouse Marital status: Current occupational status: disabled History of recent travel: No Physical Exam Const: COMMON NORMALS: no acute distress and patient oriented x3 GENERAL APPEARANCE: cooperative HENMT: COMMON NORMALS: normocephalic and Normal external nose present HEAD & SCALP: normal to inspection and normocephalic NOSE: Normal external nose present MOUTH: Normal oral and palatal mucosa present THROAT: posterior oropharynx normal Eye: GENERAL EYE: appearance normal, both eyes and all related structures Neck/C-Spine: COMMON NORMALS: full ROM Lymph: LYMPHATIC: no lymphadenopathy noted Chest: COMMONS NORMALS: normal inspection of the chest Resp: COMMON NORMALS: normal respiratory effort and clear to auscultation bilaterally EFFORT & INSPECTION: Yes able to speak in complete sentences AUSCULTATION: clear to auscultation bilaterally Cardio: COMMON NORMALS: regular rate and regular rhythm RATE: regular rate RHYTHM: regular rhythm GI: COMMON NORMALS: Soft to palpation and non-tender PALPATION: Yes Soft to palpation OTHER: No significant redness or inflammation at peritoneal dialysis site. : COMMON NORMALS: Yes no CVA tenderness BLADDER/KIDNEY EXAM: Yes no CVA tenderness Back/Pelvis: COMMON NORMALS: no CVA tenderness and thoracic and lumbar spine normal to inspection Extremity: COMMON NORMALS: normal to inspection Neuro: COMMON NORMALS: patient oriented x3 and moves all extremities Psych: COMMON NORMALS: mental status grossly normal and cooperative Skin: COMMON NORMALS: no rashes or lesions noted GENERAL SKIN EXAM: no rashes or lesions noted Course Vital Signs: Vital signs: Vital Signs Temperature 97.0 F L 05/13/20 00:43 Pulse Rate 86 05/13/20 01:26 Respiratory Rate 20 H 05/13/20 01:26 Blood Pressure 132/78 05/13/20 01:26 Pulse Oximetry 98 05/13/20 01:26 MDM - Dizziness MDM Narrative: Medical decision making narrative: Patient comes in with co mplaints of dizziness after completion of dialysis. Patient does peritoneal dialysis at home. Patient reports feeling better now. Skin is warm and dry. Vital signs are normal. Orthostatic vitals are normal. Differential diagnosis includes but not limited to dehydration, electrolyte disturbance, infection of unknown source. Blood count is unremarkable with some only mild anemia. Metabolic panel shows a calcium is 7.6, sodium 131, potassium 3.5. Reviewed the exam with patient and his suggested contact ergonomic specialist tomorrow he can review the labs and consider for further evaluation and treatment. Patient needs to monitor for fever. Return as needed. Lab Data: Labs: Lab Results 05/13/20 05/13/20 Range/Units 01:38 01:38 WBC 6.7 (4.0-10.0) 10^3/ uL RBC 3.79 L (4.1-5.3) 10^6/u L Hgb 10.4 L (11.7-16.6) g/dL Hct 33.2 L (42.0-52.0) % MCV 87.6 (80-94) fL MCH 27.4 L (28.0-34.0) pg MCHC 31.3 (30.0-36.0) g/dL RDW 16.2 H (12.1-15.1) % Plt Count 253 (130-400) 10^3/c mm MPV 9.6 (7.4-10.4) fL Neut % (Auto) 75.4 % Lymph % (Auto) 12.6 % [place] % (Auto) 7.8 % Eos % (Auto) 3.6 % Baso % (Auto) 0.3 % Neut # (Auto) 5.02 (1.8-7.7) 10^3/u L Lymph # (Auto) 0.8 (0.8-4.8) 10^3/u L [place] # (Auto) 0.5 (0.2-0.9) 10^3/u L Eos # (Auto) 0.2 (0.0-0.8) 10^3/u L Baso # (Auto) 0.0 (0.0-0.1) 10^3/u L Nucleated RBC % (a uto) 0 % Nucleated RBCs # 0.0 /100WBC Sodium 131 L (136-145) mmol/L Potassium 3.5 (3.5-5.1) mmol/L Chloride 90 L (98-107) mmol/L Carbon Dioxide 28 (22-29) mmol/L Anion Gap 16.5 (5-19) BUN 34 H (6-20) mg/dL Creatinine 9.0 H* (0.7-1.2) mg/dL GFR Calculation 6.2 L (90-130) mL/min Glucose 118 H (65-115) mg/dL Calculated Osmolal ity 281 L (285-295) mOsm/k g Calcium 7.6 L (8.5-10.5) mg/dL Magnesium 1.4 L (1.7-2.3) mg/dL Total Bilirubin 0.2 (0.15-1.2) mg/dL AST 14 (0-40) U/L ALT < 5 (0-41) U/L Alkaline Phosphata se 154 H (40-130) IU/L Total Protein 6.9 (6.6-8.7) g/dL Albumin 3.2 L (3.5-5.2) g/dL Globulin 3.7 (1.3-4.6) g/dL Discharge Plan Discharge Patient Disposition: Home Clinical Impression: Dizziness, Peritoneal dialysis catheter in place Condition: Stable Prescriptions: No Action allopurinol 100 mg tablet 100 mg PO DAILY RF: 0 metoprolol tartrate 50 mg tablet 50 mg PO DAILY RF: 0 atorvastatin 10 mg tablet 10 mg PO DAILY RF: 0 tamsulosin 0.4 mg capsule 0.4 mg PO DAILY RF: 0 fluticasone propionate 50 mcg/actuation spray,suspension 2 spray INTRANASAL DAILY RF: 0 cholecalciferol (vitamin D3) 25 mcg (1,000 unit) capsule 25 mcg PO DAILY RF: 0 morphine 15 mg tablet extended release 15 mg PO Q4H RF: 0 amlodipine 10 mg tablet 10 mg PO DAILY RF: 0 ondansetron HCl 4 mg tablet 4 mg PO Q8H RF: 0 spironolactone 25 mg Tablet 25 mg PO DAILY RF: 0 Tums 200 mg calcium (500 mg) Tablet,Chewable 200 mg PO BID RF: 0 megestrol 40 mg Tablet 40 mg PO DAILY RF: 0 Auryxia 210 mg iron Tablet See Rx Instructions .ROUTE .COMPLEX RF: 0 duloxetine 40 mg capsule,delayed release(DR/EC) 40 mg PO DAILY RF: 0 Discharge Orders: Discharge Order (Routine); Ordered 05/13/20 Ordered By: Nabeel Reyes Referrals: Jhony Kaur DO [Primary Care Provider] - Discharge Diet: Usual diet Discharge Activity: Increase activity as tolerated Activity Restrictions/Additional Instructions: Change positions slowly. Continue with routine medications and treatment. Follow-up with primary care or ergonomic specialist in the morning for further treatment. Return to the emergency department for new concerns. Coding Level of Care Code ED Endband Sizer for Audrey Fwd Exam Comprehensive
[2020-05-13 01:26] VITALS: BP 126/88; BP 132/78; BP 146/85; PULSE 86; PULSE 90; RESP 20; O2SAT 98
[2020-05-13 01:49] LABS: Basophils % 0.3 %; Eosinophils # 0.2 10^3/uL (0.0-0.8); Eosinophils % 3.6 %; Hematocrit 33.2 % (42.0-52.0); Hemoglobin 10.4 g/dL (11.7-16.6); Lymphocytes # 0.8 10^3/uL (0.8-4.8); Lymphocytes % 12.6 %; Mean Corpuscular HGB Conc 31.3 g/dL (30.0-36.0); Mean Corpuscular Hemoglobin 27.4 pg (28.0-34.0); Mean Corpuscular Volume 87.6 fL (80-94); Mean Platelet Volume 9.6 fL (7.4-10.4); Monocytes # 0.5 10^3/uL (0.2-0.9); Monocytes % 7.8 %; Neutrophils # 5.02 10^3/uL (1.8-7.7); Neutrophils % 75.4 %; Nucleated Red Blood Cells % 0 %; Platelet Count 253 10^3/cmm (130-400); Red Blood Count 3.79 10^6/uL (4.1-5.3); Red Cell Distribution Width 16.2 % (12.1-15.1); White Blood Count 6.7 10^3/uL (4.0-10.0)
[2020-05-13 02:02] LABS: Alanine Aminotransferase < 5 U/L (0-41); Albumin Level 3.2 g/dL (3.5-5.2); Alkaline Phosphatase 154 IU/L (40-130); Anion Gap 16.5 (5-19); Aspartate Amino Transferase 14 U/L (0-40); Blood Urea Nitrogen 34 mg/dL (6-20); Calcium 7.6 mg/dL (8.5-10.5); Carbon Dioxide 28 mmol/L (22-29); Chloride 90 mmol/L (98-107); Globulin 3.7 g/dL (1.3-4.6); Glomerular Filtration Rate 6.2 mL/min (90-130); Glucose 118 mg/dL (65-115); Magnesium 1.4 mg/dL (1.7-2.3); Osmolality Calculated 281 mOsm/kg (285-295); Potassium 3.5 mmol/L (3.5-5.1); Sodium 131 mmol/L (136-145); Total Bilirubin 0.2 mg/dL (0.15-1.2); Total Protein 6.9 g/dL (6.6-8.7)
[2020-05-13 02:21] VITALS: BP 128/90; PULSE 72; RESP 18; O2SAT 97
== END 2020-05-13 02:24 | disposition home or self-care (01) ==
PROVIDERS: Emergency Provider Nurse Practitioner Family; PCP Internal Medicine
DX: R42 Dizziness and giddiness (principal); Z99.2 Dependence on renal dialysis; Z87.891 Personal history of nicotine dependence
CPT/HCPCS: 12345; 71045; 80053; 83735; 85025; 99283

== ENCOUNTER 2020-08-08 14:48 | Outpatient (CLI) | payer OTHER, MEDICARE, SELFPAY ==
--- NOTE | 2020-08-08 15:02 | MR_ITS ---
WS: [id number] MRI HEAD WITHOUT CONTRAST TECHNIQUE: Sagittal T1, T2 axial, T2 axial FLAIR, axial and coronal T1 images, axial susceptibility w eighted imaging, axial diffusion weighted images, and coronal T2 images were obtained. CLINICAL INFORMATION: TINNITUS, LEFT EAR, DIZZINESS AND GIDDINESS COMPARISON: MRI 8 013 FINDINGS: No evidence of restricted diffusion to suggest acute ischemia. Ventricular system and basal cisterns are patent. Mild small vessel changes. Moderate parenchymal volume loss. Small vessel changes in the kip. Chronic encephalomalacia in the inferior parasagittal frontal lobes with encephalomalacia and g liosis. Additional encephalomalacia and gliosis in the anterior left temporal lobe. Moderate parenchy mal volume loss. This is progressed compared to 2013. Normal posterior fossa. Normal vascular flow voids at the skull base. No extra-axial fluid collection s. Mild mucosal thickening in the ethmoid air cells. Mastoid air cells are well aerated. Tiny punctate focus of hemosiderin in the right cerebellum. Proximal 7th and 8th cranial nerves are n ormal. Normal trigeminal nerve root entry zones. No evidence of IAC or CP angle mass. Gadolinium was not administered. Mild symmetric atrophy involving the temporal lobes and hippocampal formations. MR/MR iac's wo con [id number] IMPRESSION: 1. No evidence of restricted diffusion to suggest acute ischemia. 2. Mild small vessel changes with moderate parenchymal volume loss. Parenchyma l volume loss has progressed since 2013 3. Stable Encephalomalacia and gliosis in the inferior bilateral parasagittal frontal lobes and anterior left temporal lobe likely due to prior trauma 4. Small vessel changes in the kip. Noncontrast IACs are normal in appearance . Normal Trigeminal nerve root entry zones. 5. No other significant findings.
== END 2020-08-08 14:49 | disposition home or self-care (01) ==
LOC: RADWPI 14:59
PROVIDERS: PCP Internal Medicine; Visit Provider Specialist
DX: H93.12 Tinnitus, left ear (principal); R42 Dizziness and giddiness; G93.89 Other specified disorders of brain
CPT/HCPCS: 70551

== ENCOUNTER → 2020-08-23 10:39 | Outpatient (BNVA) | payer MEDICARE, OTHER, SELFPAY | PROVIDERS: PCP Internal Medicine; Visit Provider Orthopaedic Surgery | DX: S46.912A Strain of unspecified muscle, fascia and tendon at shoulder and upper arm level, left arm, initial encounter (principal); X58.XXXA Exposure to other specified factors, initial encounter | CPT/HCPCS: 73030 ==

== ENCOUNTER 2020-09-08 13:33 | Outpatient (CLI) | payer MEDICARE, OTHER, SELFPAY ==
--- NOTE | 2020-09-08 13:45 | MR_ITS ---
WS: [id number] MRI LEFT SHOULDER NONCONTRAST TECHNIQUE: Sagittal T2, coronal T1, T2 and proton density imaging. Axial gradient PDE imaging. CLINICAL INFORMATION: S46.912A - Strain of unspecified muscle, fascia and tendon at shoulder and uppe r arm level, left arm, initial encounter COMPARISON: None. FINDINGS: Moderate degenerative arthritis at the AC joint with downsloping acromion. Narrowing of the subacromi al space. Edema at the AC joint. Chronic thinning of the distal supraspinatus. Tiny undersurface inse rtional tear. Normal infraspinatus. Normal teres minor. Marked thinning of the distal subscapularis t endon distally likely due to chronic tear. Normal biceps tendon in the bicipital groove. Moderate degenerative arthritis glenohumeral joint. Deg enerative fraying of the glenoid labrum which appears grossly intact. Serpiginous osteochondral lesio n involving the articular surface humeral head likely due to avascular necrosis. Surrounding T2 signa l abnormality. No evidence of humeral head collapse. MR/MR shoulder LT wo con* [id number] IMPRESSION: 1. Moderate degenerative arthritis at the AC joint with mild downsloping acrom ion. Narrowing of the subacromial space. 2. 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 No evidence of articular surf jae collapse. 3. Marked chronic thinning of the distal supraspinatus with tiny undersurface insertional tear. 4. Marked chronic thinning of the distal subscapularis tendon likely due to ch ronic tear. A few remaining intact fibers distally. 5. Normal biceps tendon in the bicipital groove. 6. Moderate degenerative narrowing at the glenohumeral joint.
== END 2020-09-08 13:34 | disposition home or self-care (01) ==
LOC: RADSHAW 13:37
PROVIDERS: PCP Internal Medicine; Visit Provider Orthopaedic Surgery
DX: S46.912A Strain of unspecified muscle, fascia and tendon at shoulder and upper arm level, left arm, initial encounter (principal); X58.XXXA Exposure to other specified factors, initial encounter; M19.012 Primary osteoarthritis, left shoulder
CPT/HCPCS: 73221

== ENCOUNTER 2020-10-27 18:51 | Emergency (ER) | payer MEDICARE, OTHER, SELFPAY ==
[2020-10-27 18:57] VITALS: BP 146/81; PULSE 70; RESP 16; TEMP 36.3; O2SAT 98; BMI 25.0
--- NOTE | 2020-10-27 20:30 | ED_ITS ---
HPI - Abdominal Pain General: Chief Complaint: Abdominal Pain Stated Complaint: stomach pain x4 days Time Seen by Provider: 10/27/20 20:30 Source: patient Mode of arrival: ambulatory Limitations: no limitations History of Present Illness: HPI narrative: 55-year-old male patient comes in today with complaints of mid abdominal pain. Patient reports pain started about a week ago he was seen on Saturday with Dr. Perla and had some blood work done which noted some elevation in his lipase. He was waiting on Dr. Kaur his primary care to set him up for a CT scan. Patient comes in today for continued complaints of abdominal pain. Patient does do home peritoneal dialysis. Patient denies any fever. Patient denies any discoloration of peritoneal fluid exchange. MD elicited complaint: abdominal pain Review of Systems General: Reports: 10 or more systems reviewed and unremarkable except in HPI and below GI: Reports: abdominal pain PFSH ED PFSH: Medical History Axonal sensorimotor neuropathy Cervical disc disorder with myelopathy of mid-cervical region Paresthesias Spondylolisthesis, cervical region Surgical History History of arthroscopic knee surgery 3x History of arthroscopy of right shoulder History of carpal tunnel surgery of right wrist Dr. Snider History of cholecystectomy History of umbilical hernia repair Peritoneal dialysis catheter in place Family History Father CAD (coronary artery disease) Mother Arthritis Social History Smoking and tobacco status: former smoker Alcohol intake: never Household members: spouse Marital status: Current occupational status: disabled History of recent travel: No Physical Exam Const: COMMON NORMALS: no acute distress and patient oriented x3 GENERAL APPEARANCE: cooperative HENMT: COMMON NORMALS: normocephalic and Normal external nose present HEAD & SCALP: normal to inspection and normocephalic NOSE: Normal external nose present MOUTH: Normal oral and palatal mucosa present THROAT: posterior oropharynx normal Eye: GENERAL EYE: appearance normal, both eyes and all related structures Neck/C-Spine: COMMON NORMALS: full ROM Lymph: LYMPHATIC: no lymphadenopathy noted Chest: COMMONS NORMALS: normal inspection of the chest Resp: COMMON NORMALS: normal respiratory effort EFFORT & INSPECTION: Yes able to speak in complete sentences Cardio: COMMON NORMALS: regular rate and regular rhythm RATE: regular rate RHYTHM: regular rhythm GI: COMMON NORMALS: Soft to palpation PALPATION: Yes Soft to palpation and Yes Tenderness to palpation present (GI) (Epigastric) OTHER: Peritoneal ostomy site is without redness and tubing remains intact. : COMMON NORMALS: Yes no CVA tenderness BLADDER/KIDNEY EXAM: Yes no CVA tenderness Back/Pelvis: COMMON NORMALS: no CVA tenderness and thoracic and lumbar spine normal to inspection Extremity: COMMON NORMALS: normal to inspection Neuro: COMMON NORMALS: patient oriented x3 and moves all extremities Psych: COMMON NORMALS: mental status grossly normal and cooperative Skin: COMMON NORMALS: no rashes or lesions noted GENERAL SKIN EXAM: no rashes or lesions noted Course Vital Signs: Vital signs: Vital Signs Temperature 97.3 F L 10/27/20 18:57 Pulse Rate 73 10/27/20 20:59 Respiratory Rate 17 10/27/20 20:59 Blood Pressure 146/81 10/27/20 18:57 Pulse Oximetry 98 10/27/20 20:59 MDM - Abdominal Pain MDM Narrative: Medical decision making narrative: 55-year-old male patient was referred to the ER from his primary care for concerns of abdominal pain and pancreatitis. On examination patient's abdomen was soft with some midepigastric tenderness. Patient does have a peritoneal dialysis catheter in place without any signs of redness, abdominal rigidity, or fever. Patient appears in no pain at this time. Patient appears chronically ill. Vital signs were normal. Differential diagnosis includes not limited to pancreatitis, gastroesophageal reflux disease, gastroenteritis, peritonitis. Laboratory values noted unremarkable white blood cell count. CMP was no significant change from from prior exams. Lipase was 59. CT scan was unremarkable except for some air that was probably secondary to patient's peritoneal dialysis port. Reviewed exam with patient with recommendations for treatment and follow-up. Patient should continue with routine care as directed. Recommended dietary changes and discussing further with primary care. Patient reported understanding. Lab Data: Labs: Lab Results 10/27/20 10/27/20 10/27/20 Range/Units 20:55 20:55 20:55 WBC 7.1 (4.0-10.0) 10^3/ uL RBC 4.31 (4.1-5.3) 10^6/u L Hgb 11.7 (11.7-16.6) g/dL Hct 36.5 L (42.0-52.0) % MCV 84.7 (80-94) fL MCH 27.1 L (28.0-34.0) pg MCHC 32.1 (30.0-36.0) g/dL RDW 14.9 (12.1-15.1) % Plt Count 241 (130-400) 10^3/c mm MPV 11.0 H (7.4-10.4) fL Neut % (Auto) 54.4 % Lymph % (Auto) 30.5 % [place] % (Auto) 9.4 % Eos % (Auto) 5.3 % Baso % (Auto) 0.3 % Neut # (Auto) 3.86 (1.8-7.7) 10^3/u L Lymph # (Auto) 2.2 (0.8-4.8) 10^3/u L [place] # (Auto) 0.7 (0.2-0.9) 10^3/u L Eos # (Auto) 0.4 (0.0-0.8) 10^3/u L Baso # (Auto) 0.0 (0.0-0.1) 10^3/u L Nucleated RBC % (a uto) 0 % Nucleated RBCs # 0.0 /100WBC Sodium 134 L (136-145) mmol/L Potassium 4.0 (3.5-5.1) mmol/L Chloride 91 L (98-107) mmol/L Carbon Dioxide 28 (22-29) mmol/L Anion Gap 19.0 (5-19) BUN 47 H (6-20) mg/dL Creatinine 10.6 H* (0.7-1.2) mg/dL GFR Calculation 5.1 L (90-130) mL/min Glucose 83 (65-115) mg/dL Calculated Osmolal ity 289 (285-295) mOsm/k g Lactic Acid 0.7 (0.5-2.2) mmol/L Calcium 6.9 L (8.5-10.5) mg/dL Total Bilirubin 0.3 (0.15-1.2) mg/dL AST 17 (0-40) U/L ALT 10 (0-41) U/L Alkaline Phosphata se 166 H (40-130) IU/L Total Protein 6.1 L (6.6-8.7) g/dL Albumin 3.3 L (3.5-5.2) g/dL Globulin 2.8 (1.3-4.6) g/dL Lipase 59 (13-60) U/L Discharge Plan Discharge Patient Disposition: Home Clinical Impression: Gastroenteritis Condition: Stable Prescriptions: No Action allopurinol 100 mg tablet 100 mg PO DAILY@0700 RF: 0 atorvastatin 10 mg tablet 10 mg PO DAILY@0700 RF: 0 tamsulosin 0.4 mg capsule 0.4 mg PO DAILY RF: 0 fluticasone propionate 50 mcg/actuation spray,suspension 2 spray INTRANASAL DAILY RF: 0 cholecalciferol (vitamin D3) 25 mcg (1,000 unit) capsule 25 mcg PO DAILY@0700 RF: 0 morphine 15 mg tablet extended release 15 mg PO Q4H RF: 0 amlodipine 10 mg tablet 10 mg PO DAILY@0700 RF: 0 ondansetron HCl 4 mg tablet 4 mg PO Q8H RF: 0 calcium carbonate [Tums] 200 mg calcium (500 mg) Tablet,Chewable 200 mg PO BID RF: 0 megestrol 40 mg Tablet 40 mg PO DAILY@0700 RF: 0 Auryxia 210 mg iron Tablet See Rx Instructions .ROUTE .COMPLEX RF: 0 duloxetine 40 mg capsule,delayed release(DR/EC) 40 mg PO DAILY@0700 RF: 0 metoprolol succinate 50 mg tablet extended release 24 hr 75 mg PO DAILY@0700 RF: 0 Aldactone 25 mg Tablet 25 mg PO DAILY@0700 RF: 0 esomeprazole magnesium 40 mg capsule,delayed release(DR/EC) 40 mg PO BID@0700,1900 RF: 0 Discharge Orders: Discharge ED (Routine); Ordered 10/27/20 Ordered By: Nabeel Reyes Referrals: Jhony Kaur DO [Primary Care Provider] - Discharge Diet: Advance as tolerated Discharge Activity: Increase activity as tolerated Patient Instructions: Gastroenteritis (ED), Opioid Safety Activity Restrictions/Additional Instructions: Continue with routine care. Drink plenty of fluids. Increase diet to a bland diet from clear liquids over the next 2 days. [place] diet includes boiled chicken, rice, bananas, apples, toast. Follow-up with primary care in the morning for further recommendations of treatment. Return to the emergency department for high fever or new concerns. Coding Level of Care Code ED Rehabilitation Program Coordinator for Audrey Almanza Exam Comprehensive
[2020-10-27 20:59] VITALS: PULSE 73; RESP 17; O2SAT 98
--- NOTE | 2020-10-27 21:03 | CTR_ITS ---
PROCEDURE INFORMATION: Exam: CT Abdomen And Pelvis With Contrast Exam date and time: 10/27/2020 9:05 PM Age: 55 years old Clinical indication: Abdominal pain; Prior surgery; Surgery type: Gb. Appy. Hernia repair. Peritoneal dialysis catheter. ; Patient HX: Epigastric pain; Additional info: Pancreatitis TECHNIQUE: Imaging protocol: Computed tomography of the abdomen and pelvis with contrast. Radiation optimization: All CT scans at this facility use at least one of these dose optimization techniques: automated exposure control; mA and/or kV adjustment per patient size (includes targeted exams where dose is matched to clinical indication); or iterative reconstruction. Contrast material: VISI 320; Contrast volume: 75 ml; Contrast route: INTRAVENOUS (IV); COMPARISON: CT abdomen pelvis wo con [id number] 02/02/2020 1:51 PM RADIATION DOSE METRICS: Total DLP (mGy-cm): 1795.37 FINDINGS: Tubes, catheters and devices: Large amount fluid in the abdomen and pelvis likely related peritoneal dialysis catheter. Lungs: Right lower lobe 6.9 mm pulmonary nodule. For patients at low risk (minimal or absent history of smoking and of other known risk factors), recommend CT Chest at 6-12 months, then consider CT Chest at 18-24 months. For patients at high risk (history of smoking or of other known risk factors), recommend CT Chest at 6-12 months, then CT Chest at 18-24 months. (Reference: Myra) Liver: Normal. No mass. Gallbladder and bile ducts: Cholecystectomy. Pancreas: Normal. No ductal dilation. Spleen: Normal. No splenomegaly. Adrenal glands: Normal. No mass. Kidneys and ureters: Chronic bilateral renal atrophy. Stomach and bowel: Prominent fluid in the small bowel with mucosal enhancement may reflect an enteritis. Appendix: No evidence of appendicitis. Intraperitoneal space: Small amount of free air in the abdomen may be related to the peritoneal dialysis catheter, please correlate clinically. A perforated viscus is also consideration for this appearance, however, no focal findings are seen to indicate a potential source for this Vasculature: Unremarkable. No abdominal aortic aneurysm. Lymph nodes: Unremarkable. No enlarged lymph nodes. Urinary bladder: Unremarkable as visualized. Reproductive: Unremarkable as visualized. Bones/joints: Unremarkable. No acute fracture. Soft tissues: Unremarkable. CT/CT abdomen pelvis w con* [id number] IMPRESSION: 1. Small amount of free air in the abdomen may be related to the peritoneal dialysis catheter, please correlate clinically. A perforated viscus is also consideration for this appearance, however, no focal findings are seen to indicate a potential source for this 2. Right lower lobe 6.9 mm pulmonary nodule. For patients at low risk (minimal or absent history of smoking and of other known risk factors), recommend CT Chest at 6-12 months, then consider CT Chest at 18-24 months. For patients at high risk (history of smoking or of other known risk factors), recommend CT Chest at 6-12 months, then CT Chest at 18-24 months. (Reference: Myra) 3. Large amount fluid in the abdomen and pelvis likely related peritoneal dialysis catheter. 4. Cholecystectomy. 5. Prominent fluid in the small bowel with mucosal enhancement may reflect an enteritis. 6. Chronic bilateral renal atrophy. REFERENCES: 1. Myra Uribe, et al. Guidelines for Management of Incidental Pulmonary Nodules Detected on CT Images: From the Fleischner Society 2017. Radiology. 2017;284(1):228-243. 2. Myra Uribe, et al. Guidelines for Management of Incidental Pulmonary Nodules Detected on CT Images: From the Fleischner Society 2017. Radiology. 2017;284(1):228-243. Radiation Dose CTDIVOL = (mGy): DLP = 1795.37 (mGy-cm)
[2020-10-27 21:13] LABS: Basophils % 0.3 %; Eosinophils # 0.4 10^3/uL (0.0-0.8); Eosinophils % 5.3 %; Hematocrit 36.5 % (42.0-52.0); Hemoglobin 11.7 g/dL (11.7-16.6); Lymphocytes # 2.2 10^3/uL (0.8-4.8); Lymphocytes % 30.5 %; Mean Corpuscular HGB Conc 32.1 g/dL (30.0-36.0); Mean Corpuscular Hemoglobin 27.1 pg (28.0-34.0); Mean Corpuscular Volume 84.7 fL (80-94); Monocytes # 0.7 10^3/uL (0.2-0.9); Monocytes % 9.4 %; Neutrophils # 3.86 10^3/uL (1.8-7.7); Neutrophils % 54.4 %; Nucleated Red Blood Cells % 0 %; Platelet Count 241 10^3/cmm (130-400); Red Blood Count 4.31 10^6/uL (4.1-5.3); Red Cell Distribution Width 14.9 % (12.1-15.1); White Blood Count 7.1 10^3/uL (4.0-10.0)
[2020-10-27 21:25] LABS: Alanine Aminotransferase 10 U/L (0-41); Albumin Level 3.3 g/dL (3.5-5.2); Alkaline Phosphatase 166 IU/L (40-130); Aspartate Amino Transferase 17 U/L (0-40); Blood Urea Nitrogen 47 mg/dL (6-20); Calcium 6.9 mg/dL (8.5-10.5); Carbon Dioxide 28 mmol/L (22-29); Chloride 91 mmol/L (98-107); Globulin 2.8 g/dL (1.3-4.6); Glomerular Filtration Rate 5.1 mL/min (90-130); Glucose 83 mg/dL (65-115); Lipase 59 U/L (13-60); Osmolality Calculated 289 mOsm/kg (285-295); Sodium 134 mmol/L (136-145); Total Bilirubin 0.3 mg/dL (0.15-1.2); Total Protein 6.1 g/dL (6.6-8.7)
[2020-10-27 21:26] LABS: Lactic Sepsis W/Reflex 0.7 mmol/L (0.5-2.2)
[2020-10-27] MEDS: iodixanol 320 mg/mL 100mL Btl IV (21:45)
[2020-10-27 22:22] VITALS: PULSE 72; RESP 17; O2SAT 94
== END 2020-10-27 22:22 | disposition home or self-care (01) ==
PROVIDERS: Emergency Medicine; Emergency Provider Nurse Practitioner Family; PCP Internal Medicine
DX: K52.9 Noninfective gastroenteritis and colitis, unspecified (principal); Z87.891 Personal history of nicotine dependence
CPT/HCPCS: 74177; 80053; 83605; 83690; 85025; 99283; Q9967

== ENCOUNTER → 2020-11-21 09:19 | Outpatient (BNVA) | payer MEDICARE, OTHER, SELFPAY | PROVIDERS: PCP Internal Medicine; Visit Provider Orthopaedic Surgery | DX: M25.511 Pain in right shoulder (principal) | CPT/HCPCS: 73030 ==

== ENCOUNTER → 2020-11-28 15:39 | Outpatient (BNVA) | payer MEDICARE, OTHER, SELFPAY | PROVIDERS: PCP Internal Medicine; Visit Provider Surgery | DX: Z01.812 Encounter for preprocedural laboratory examination (principal); Z20.822 Contact with and (suspected) exposure to COVID-19 | CPT/HCPCS: 87635 ==

== ENCOUNTER 2020-12-01 06:44 | Day surgery (SDC) | payer MEDICARE, OTHER, SELFPAY ==
[2020-11-29 12:37] VITALS: BMI 25.7
--- NOTE | 2020-12-01 06:51 | ANES.PREANE2 ---
Pre-Anesthetic Assessment Pre-Anesthetic Assessment: Height/Weight: Height 1.83 m Weight 86.183 kg Preop Diagnosis: abdominal pain Proposed Procedure: Operation Date: 12/01/20 08:00 Proposed Procedures p EGD 49149 R10.13 R11.2 Z86.19 Z87.11(Not Applicable) - Awais Gonzáles MD Familial anesthetic complications: None Was Beta Cm taken within 24 hours: N/A Was Clonidine taken within 24 hours: N/A Last intake: > 8 hrs Social: Social History: No alcohol and No tobacco Exam: Pre-Anes Outpt Exam: alert, oriented x 3, clear to auscultation bilaterally and regular rate & rhythm Airway: Cervical ROM: WNL (cervical soreness) MP: 1 Dentition: False CV/HEM: CV/HEM: HTN : Comments: Peritoneal dialysis - 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 Snider History of cholecystectomy History of umbilical hernia repair Peritoneal dialysis catheter in place Family History Father CAD (coronary artery disease) Mother Arthritis Social History Smoking and tobacco status: former smoker Alcohol intake: never Household members: spouse Marital status: Current occupational status: disabled History of recent travel: No Data Anesthesia Cardiac Studies: No Data to Display
[2020-12-01 07:35] VITALS: BP 153/93; PULSE 71; RESP 18; TEMP 36.4; O2SAT 100
[2020-12-01] MEDS: sodium chloride 0.9% 1,000 ML 30 ML IV (07:54)
--- NOTE | 2020-12-01 08:02 | W.PM.OPSUD ---
Surgery/Procedure H&P Update DATE OF PROCEDURE: December 01, 2020 DATE H&P PERFORMED: 11/22/20 H&P UPDATE INFORMATION: No changes to prior documentation PREOP DIAGNOSIS: abdominal pain, history of peptic ulcer disease PLANNED PROCEDURE: Operation Date: 12/01/20 08:00 Proposed Procedures p EGD 67074 R10.13 R11.2 Z86.19 Z87.11(Not Applicable) - Awais Gonzáles MD
--- NOTE | 2020-12-01 13:27 | ANE.PACU2 ---
Inpatient post-anesthesia follow up: Airway intact: Yes Vital signs: Temperature 97.5 F Pulse Rate 71 Respiratory Rate 18 Blood Pressure 153/93 Pulse Oximetry 100 Oxygen Delivery Me thod Room Air Oxygen Flow Rate Fraction of Inspir ed Oxygen Hydration adequate: Yes Nausea and vomiting: No Pain level: 1 Mental status: Baseline
== END 2020-12-01 08:50 | disposition home or self-care (01) ==
PROVIDERS: PCP Internal Medicine; Visit Provider Surgery
PROC: 0DJ08ZZ Inspection of Upper Intestinal Tract, Via Natural or Artificial Opening Endoscopic (ICD-10-PCS; CPT 43235; principal; 2020-12-01 08:00)
DX: R10.13 Epigastric pain (principal); R11.2 Nausea with vomiting, unspecified; Z86.19 Personal history of other infectious and parasitic diseases; Z87.11 Personal history of peptic ulcer disease; K29.70 Gastritis, unspecified, without bleeding; K29.80 Duodenitis without bleeding; G47.30 Sleep apnea, unspecified; M79.7 Fibromyalgia; I12.0 Hypertensive chronic kidney disease with stage 5 chronic kidney disease or end stage renal disease; N18.6 End stage renal disease; M19.90 Unspecified osteoarthritis, unspecified site; E78.5 Hyperlipidemia, unspecified; Z87.891 Personal history of nicotine dependence; Z99.2 Dependence on renal dialysis
CPT/HCPCS: 12345; 43239; 88305; 96360; J2704; J7030

== ENCOUNTER 2021-01-27 21:56 | Inpatient (IN) | payer MEDICARE, OTHER, SELFPAY ==
[2021-01-27 22:02] VITALS: BP 136/87; PULSE 88; RESP 17; TEMP 36.5; O2SAT 96; BMI 25.9
--- NOTE | 2021-01-27 22:12 | XRR_ITS ---
PROCEDURE INFORMATION: Exam: XR Chest Exam date and time: 01/27/2021 10:15 PM Age: 55 years old Clinical indication: Shortness of breath and other: Swelling; Additional info: Confusion, swelling TECHNIQUE: Imaging protocol: XR of the chest. Views: 1 view. COMPARISON: CR XR chest 1V portable [id number] 05/13/2020 12:51 AM FINDINGS: Lungs: Visualized portions of the right lung are clear. There is elevation left hemidiaphragm and there is linear atelectasis in the left lung base and possible left lower lobe infiltrate. There is no pulmonary vascular congestion. Pleural spaces: There is blunting of left costophrenic angle which may represent some pleural effusion. Heart/Mediastinum: The heart is mildly enlarged. Bones/joints: Unremarkable. XR/XR chest 1V portable [id number] IMPRESSION: 1. Left basilar atelectasis and infiltrate. 2. Possible small left pleural effusion.
[2021-01-27 22:14] VITALS: BP 149/69; PULSE 94; RESP 16; O2SAT 94
--- NOTE | 2021-01-27 22:21 | ED_ITS ---
Documented by User: JAMAL Blanco 01/28/21 00:12 HPI - Altered Mental Status General: Chief Complaint: Altered Mental Status Stated Complaint: Confused Swelling Time Seen by Provider: 01/27/21 22:07 History of Present Illness: HPI narrative: Patient comes in today for concerns of change in behavior. Patient was released on the from [facility] in [place] after having a significant pneumonia in his left lung. Spouse reports that at that time patient had to have hemodialysis due to being toxic. Since getting home patient has been doing well except for the last week he seems to have started acting strange again since going off hemodialysis back onto his peritoneal dialysis. Patient appears chronically ill. Patient acts abnormal. They have been in contact with patient's peritoneal dialysis nurse who recommended the patient come into the emergency room for evaluation. They were heading to [place] when they decided to stop here just to make sure that there was nothing minor that could be cared for locally versus going all the way to [place]. Patient is alert and answers questions but states he does not feel right. Patient denies any chest pain or difficulty breathing. Patient reports his peritoneal dialysis fluid has been clear. Review of Systems General: Reports: 10 or more systems reviewed and unremarkable except in HPI and below Neuro: Reports: other (Malaise, not feeling right. Restless at times.) PFSH ED PFSH: Medical History Axonal sensorimotor neuropathy Cervical disc disorder with myelopathy of mid-cervical region Paresthesias Spondylolisthesis, cervical region Surgical History History of arthroscopic knee surgery 3x History of arthroscopy of right shoulder History of carpal tunnel surgery of right wrist Dr. Snider History of cholecystectomy History of umbilical hernia repair Peritoneal dialysis catheter in place Family History Father CAD (coronary artery disease) Mother Arthritis Social History Smoking and tobacco status: former smoker Alcohol intake: never Household members: spouse Marital status: Current occupational status: disabled History of recent travel: No Physical Exam Const: COMMON NORMALS: no acute distress and patient oriented x3 GENERAL APPEARANCE: cooperative HENMT: COMMON NORMALS: normocephalic and Normal external nose present HEAD & SCALP: normal to inspection and normocephalic NOSE: Normal external nose present MOUTH: Normal oral and palatal mucosa present THROAT: posterior oropharynx normal Eye: GENERAL EYE: appearance normal, both eyes and all related structures Neck/C-Spine: COMMON NORMALS: full ROM Lymph: LYMPHATIC: no lymphadenopathy noted Chest: COMMONS NORMALS: normal inspection of the chest Resp: COMMON NORMALS: normal respiratory effort EFFORT & INSPECTION: Yes able to speak in complete sentences AUSCULTATION: diminished lung sounds on the left Cardio: COMMON NORMALS: regular rate and regular rhythm RATE: regular rate RHYTHM: regular rhythm GI: COMMON NORMALS: Soft to palpation and non-tender PALPATION: Yes Soft to palpation Back/Pelvis: COMMON NORMALS: thoracic and lumbar spine normal to inspection Extremity: COMMON NORMALS: normal to inspection Neuro: COMMON NORMALS: patient oriented x3 and moves all extremities Psych: COMMON NORMALS: mental status grossly normal and cooperative Skin: COMMON NORMALS: no rashes or lesions noted GENERAL SKIN EXAM: no rashes or lesions noted Course Vital Signs: Vital signs: Vital Signs Temperature 98.9 F 01/28/21 04:00 Pulse Rate 89 01/28/21 04:00 Respiratory Rate 20 H 01/28/21 04:00 Blood Pressure 142/85 01/28/21 04:00 Pulse Oximetry 93 01/28/21 04:00 MDM - Altered Mental Status MDM Narrative: Medical decision making narrative: Patient came in today with spouse for concerns of abnormal behavior. Patient is usually a peritoneal dialysis patient has been using hemodialysis week ago when he restarted his peritoneal dialysis. Patient has been on hemodialysis while in the hospital for a severe pneumonia. On exam patient's abdomen is soft nontender. Lungs are decreased left campos. Vital signs were normal. Differential diagnosis includes but not limited to renal failure, sepsis, pneumonia. Chest x-ray noted atelectasis in the lung campos, CBC noted some anemia, metabolic panel noted elevation in creatinine to 11.4, BUN 83, potassium 6.3. Reviewed with Dr. Sparks who felt patient would benefit from hemodialysis and recommended admission. He agreed to assume care of patient for admission. Lab Data: Labs: Lab Results 01/27/21 01/27/21 01/27/21 Range/Units 22:30 22:30 22:30 WBC 5.9 (4.0-10.0) 10^3/ uL RBC 2.72 L (4.1-5.3) 10^6/u L Hgb 8.1 L (11.7-16.6) g/dL Hct 23.9 L (42.0-52.0) % MCV 87.9 (80-94) fL MCH 29.8 (28.0-34.0) pg MCHC 33.9 (30.0-36.0) g/dL RDW 15.3 H (12.1-15.1) % Plt Count 70 L (130-400) 10^3/c mm MPV 12.5 H (7.4-10.4) fL Neut % (Auto) 57.3 % Lymph % (Auto) 25.6 % [place] % (Auto) 11.8 % Eos % (Auto) 4.6 % Baso % (Auto) 0.5 % Neut # (Auto) 3.35 (1.8-7.7) 10^3/u L Lymph # (Auto) 1.5 (0.8-4.8) 10^3/u L [place] # (Auto) 0.7 (0.2-0.9) 10^3/u L Eos # (Auto) 0.3 (0.0-0.8) 10^3/u L Baso # (Auto) 0.0 (0.0-0.1) 10^3/u L Nucleated RBC % (a uto) 0 % Nucleated RBCs # 0.0 /100WBC Sodium 134 L (136-145) mmol/L Potassium 6.3 H (3.5-5.1) mmol/L Chloride 92 L (98-107) mmol/L Carbon Dioxide 20 L (22-29) mmol/L Anion Gap 28.3 H (5-19) BUN 83 H* D (6-20) mg/dL Creatinine 11.4 H* (0.7-1.2) mg/dL GFR Calculation 4.7 L (90-130) mL/min Glucose 103 (65-115) mg/dL Calculated Osmolal ity 303 H (285-295) mOsm/k g Lactic Acid 0.9 (0.5-2.2) mmol/L Calcium 6.9 L (8.5-10.5) mg/dL Total Bilirubin 0.2 (0.15-1.2) mg/dL AST 20 (0-40) U/L ALT 14 (0-41) U/L Alkaline Phosphata se 109 (40-130) IU/L NT-Pro-B Natriuret Pep > 49837 H (0-125) pg/mL Total Protein 6.2 L (6.6-8.7) g/dL Albumin 3.1 L (3.5-5.2) g/dL Globulin 3.1 (1.3-4.6) g/dL Urine Color (Yellow) Urine Appearance (CLEAR) Urine pH (5-7) Ur Specific Gravit y (1.005-1.030) Urine Protein (Negative) Urine Glucose (UA) (Normal) Urine Ketones (Negative) Urine Blood (Negative) Urine Nitrate (Negative) Urine Bilirubin (Negative) Prot Sulfosalicyli c Acd (Negative) Urine Urobilinogen (Negative) mg/dL Ur Leukocyte Emi ase (Negative) Urine RBC (0-2) /hpf Urine WBC (0-5) /hpf Ur Squamous Epith Cells (0-5) /hpf Amorphous Sediment Urine Bacteria (NONE) /hpf 01/27/21 Range/Units 22:40 WBC (4.0-10.0) 10^3/ uL RBC (4.1-5.3) 10^6/u L Hgb (11.7-16.6) g/dL Hct (42.0-52.0) % MCV (80-94) fL MCH (28.0-34.0) pg MCHC (30.0-36.0) g/dL RDW (12.1-15.1) % Plt Count (130-400) 10^3/c mm MPV (7.4-10.4) fL Neut % (Auto) % Lymph % (Auto) % [place] % (Auto) % Eos % (Auto) % Baso % (Auto) % Neut # (Auto) (1.8-7.7) 10^3/u L Lymph # (Auto) (0.8-4.8) 10^3/u L [place] # (Auto) (0.2-0.9) 10^3/u L Eos # (Auto) (0.0-0.8) 10^3/u L Baso # (Auto) (0.0-0.1) 10^3/u L Nucleated RBC % (a uto) % Nucleated RBCs # /100WBC Sodium (136-145) mmol/L Potassium (3.5-5.1) mmol/L Chloride (98-107) mmol/L Carbon Dioxide (22-29) mmol/L Anion Gap (5-19) BUN (6-20) mg/dL Creatinine (0.7-1.2) mg/dL GFR Calculation (90-130) mL/min Glucose (65-115) mg/dL Calculated Osmolal ity (285-295) mOsm/k g Lactic Acid (0.5-2.2) mmol/L Calcium (8.5-10.5) mg/dL Total Bilirubin (0.15-1.2) mg/dL AST (0-40) U/L ALT (0-41) U/L Alkaline Phosphata se (40-130) IU/L NT-Pro-B Natriuret Pep (0-125) pg/mL Total Protein (6.6-8.7) g/dL Albumin (3.5-5.2) g/dL Globulin (1.3-4.6) g/dL Urine Color Yellow (Yellow) Urine Appearance Clear (CLEAR) Urine pH 8 H (5-7) Ur Specific Gravit y 1.010 (1.005-1.030) Urine Protein 3+ H (Negative) Urine Glucose (UA) 2+ (Normal) Urine Ketones Negative (Negative) Urine Blood 3+ H (Negative) Urine Nitrate Negative (Negative) Urine Bilirubin Neg (Negative) Prot Sulfosalicyli c Acd Positive (Negative) Urine Urobilinogen Norm (Negative) mg/dL Ur Leukocyte Emi ase Negative (Negative) Urine RBC 5-10 H (0-2) /hpf Urine WBC 0-4 H (0-5) /hpf Ur Squamous Epith Cells 0-4 H (0-5) /hpf Amorphous Sediment Not Reportable Urine Bacteria Trace (NONE) /hpf Discharge Plan Discharge Patient Disposition: Admitted As Inpatient Admit Provider: Sammie Castaneda Coding Level of Care Code ED Long Distance Billing Operator for Chg Fwd Exam Comprehensive Documented by User: Jareth Sparks DO 01/28/21 06:29 HPI - Altered Mental Status General: Chief Complaint: Altered Mental Status Stated Complaint: Confused Swelling Time Seen by Provider: 01/27/21 22:07 PFSH ED PFSH: Medical History Axonal sensorimotor neuropathy Cervical disc disorder with myelopathy of mid-cervical region Paresthesias Spondylolisthesis, cervical region Surgical History History of arthroscopic knee surgery 3x History of arthroscopy of right shoulder History of carpal tunnel surgery of right wrist Dr. Snider History of cholecystectomy History of umbilical hernia repair Peritoneal dialysis catheter in place Family History Father CAD (coronary artery disease) Mother Arthritis Social History Smoking and tobacco status: former smoker Alcohol intake: never Household members: spouse Marital status: Current occupational status: disabled History of recent travel: No Course Consultations: Consultation #1: juan Vital Signs: Vital signs: Vital Signs Temperature 98.9 F 01/28/21 04:00 Pulse Rate 89 01/28/21 04:00 Respiratory Rate 20 H 01/28/21 04:00 Blood Pressure 142/85 01/28/21 04:00 Pulse Oximetry 93 01/28/21 04:00 MDM - Altered Mental Status MDM Narrative: Medical decision making narrative: 55-year-old male originally seen by JAMAL Luna. I agree with his history, evaluation, and treatment. This gentleman has mental status changes, likely related to uremia with hyperkalemia because of renal failure. He will likely benefit from hemodialysis. Also, his hemoglobin is 8.1 and platelet count is down to 70 which is concerning as this is a fall from October when we have his last numbers. Hospitalist is aware and has seen patient in the ER Lab Data: Labs: Lab Results 01/27/21 01/27/21 01/27/21 Range/Units 22:30 22:30 22:30 WBC 5.9 (4.0-10.0) 10^3/ uL RBC 2.72 L (4.1-5.3) 10^6/u L Hgb 8.1 L (11.7-16.6) g/dL Hct 23.9 L (42.0-52.0) % MCV 87.9 (80-94) fL MCH 29.8 (28.0-34.0) pg MCHC 33.9 (30.0-36.0) g/dL RDW 15.3 H (12.1-15.1) % Plt Count 70 L (130-400) 10^3/c mm MPV 12.5 H (7.4-10.4) fL Neut % (Auto) 57.3 % Lymph % (Auto) 25.6 % [place] % (Auto) 11.8 % Eos % (Auto) 4.6 % Baso % (Auto) 0.5 % Neut # (Auto) 3.35 (1.8-7.7) 10^3/u L Lymph # (Auto) 1.5 (0.8-4.8) 10^3/u L [place] # (Auto) 0.7 (0.2-0.9) 10^3/u L Eos # (Auto) 0.3 (0.0-0.8) 10^3/u L Baso # (Auto) 0.0 (0.0-0.1) 10^3/u L Nucleated RBC % (a uto) 0 % Nucleated RBCs # 0.0 /100WBC Sodium 134 L (136-145) mmol/L Potassium 6.3 H (3.5-5.1) mmol/L Chloride 92 L (98-107) mmol/L Carbon Dioxide 20 L (22-29) mmol/L Anion Gap 28.3 H (5-19) BUN 83 H* D (6-20) mg/dL Creatinine 11.4 H* (0.7-1.2) mg/dL GFR Calculation 4.7 L (90-130) mL/min Glucose 103 (65-115) mg/dL Calculated Osmolal ity 303 H (285-295) mOsm/k g Lactic Acid 0.9 (0.5-2.2) mmol/L Calcium 6.9 L (8.5-10.5) mg/dL Total Bilirubin 0.2 (0.15-1.2) mg/dL AST 20 (0-40) U/L ALT 14 (0-41) U/L Alkaline Phosphata se 109 (40-130) IU/L NT-Pro-B Natriuret Pep > 38171 H (0-125) pg/mL Total Protein 6.2 L (6.6-8.7) g/dL Albumin 3.1 L (3.5-5.2) g/dL Globulin 3.1 (1.3-4.6) g/dL Urine Color (Yellow) Urine Appearance (CLEAR) Urine pH (5-7) Ur Specific Gravit y (1.005-1.030) Urine Protein (Negative) Urine Glucose (UA) (Normal) Urine Ketones (Negative) Urine Blood (Negative) Urine Nitrate (Negative) Urine Bilirubin (Negative) Prot Sulfosalicyli c Acd (Negative) Urine Urobilinogen (Negative) mg/dL Ur Leukocyte Emi ase (Negative) Urine RBC (0-2) /hpf Urine WBC (0-5) /hpf Ur Squamous Epith Cells (0-5) /hpf Amorphous Sediment Urine Bacteria (NONE) /hpf 01/27/21 Range/Units 22:40 WBC (4.0-10.0) 10^3/ uL RBC (4.1-5.3) 10^6/u L Hgb (11.7-16.6) g/dL Hct (42.0-52.0) % MCV (80-94) fL MCH (28.0-34.0) pg MCHC (30.0-36.0) g/dL RDW (12.1-15.1) % Plt Count (130-400) 10^3/c mm MPV (7.4-10.4) fL Neut % (Auto) % Lymph % (Auto) % [place] % (Auto) % Eos % (Auto) % Baso % (Auto) % Neut # (Auto) (1.8-7.7) 10^3/u L Lymph # (Auto) (0.8-4.8) 10^3/u L [place] # (Auto) (0.2-0.9) 10^3/u L Eos # (Auto) (0.0-0.8) 10^3/u L Baso # (Auto) (0.0-0.1) 10^3/u L Nucleated RBC % (a uto) % Nucleated RBCs # /100WBC Sodium (136-145) mmol/L Potassium (3.5-5.1) mmol/L Chloride (98-107) mmol/L Carbon Dioxide (22-29) mmol/L Anion Gap (5-19) BUN (6-20) mg/dL Creatinine (0.7-1.2) mg/dL GFR Calculation (90-130) mL/min Glucose (65-115) mg/dL Calculated Osmolal ity (285-295) mOsm/k g Lactic Acid (0.5-2.2) mmol/L Calcium (8.5-10.5) mg/dL Total Bilirubin (0.15-1.2) mg/dL AST (0-40) U/L ALT (0-41) U/L Alkaline Phosphata se (40-130) IU/L NT-Pro-B Natriuret Pep (0-125) pg/mL Total Protein (6.6-8.7) g/dL Albumin (3.5-5.2) g/dL Globulin (1.3-4.6) g/dL Urine Color Yellow (Yellow) Urine Appearance Clear (CLEAR) Urine pH 8 H (5-7) Ur Specific Gravit y 1.010 (1.005-1.030) Urine Protein 3+ H (Negative) Urine Glucose (UA) 2+ (Normal) Urine Ketones Negative (Negative) Urine Blood 3+ H (Negative) Urine Nitrate Negative (Negative) Urine Bilirubin Neg (Negative) Prot Sulfosalicyli c Acd Positive (Negative) Urine Urobilinogen Norm (Negative) mg/dL Ur Leukocyte Emi ase Negative (Negative) Urine RBC 5-10 H (0-2) /hpf Urine WBC 0-4 H (0-5) /hpf Ur Squamous Epith Cells 0-4 H (0-5) /hpf Amorphous Sediment Not Reportable Urine Bacteria Trace (NONE) /hpf Discharge Plan Discharge Patient Disposition: Admitted As Inpatient Admit Provider: Sammie Castaneda Coding Level of Care Code ED Long Distance Billing Operator for g Fwd Exam Comprehensive
[2021-01-27 22:40] LABS: Basophils % 0.5 %; Eosinophils # 0.3 10^3/uL (0.0-0.8); Eosinophils % 4.6 %; Hematocrit 23.9 % (42.0-52.0); Hemoglobin 8.1 g/dL (11.7-16.6); Lymphocytes # 1.5 10^3/uL (0.8-4.8); Lymphocytes % 25.6 %; Mean Corpuscular HGB Conc 33.9 g/dL (30.0-36.0); Mean Corpuscular Hemoglobin 29.8 pg (28.0-34.0); Mean Corpuscular Volume 87.9 fL (80-94); Mean Platelet Volume 12.5 fL (7.4-10.4); Monocytes # 0.7 10^3/uL (0.2-0.9); Monocytes % 11.8 %; Neutrophils # 3.35 10^3/uL (1.8-7.7); Neutrophils % 57.3 %; Nucleated Red Blood Cells % 0 %; Platelet Count 70 10^3/cmm (130-400); Red Blood Count 2.72 10^6/uL (4.1-5.3); Red Cell Distribution Width 15.3 % (12.1-15.1); White Blood Count 5.9 10^3/uL (4.0-10.0)
[2021-01-27 22:58] LABS: Lactic Sepsis W/Reflex 0.9 mmol/L (0.5-2.2)
[2021-01-27 23:09] LABS: Protein Urine 3+ (Negative); Urine Appearance Clear (CLEAR); Urine Color Yellow (Yellow); pH Urine 8 (5-7)
[2021-01-27 23:10] LABS: Add Urine Microscopic? YES; Bacteria Urine TRACE /hpf; Bilirubin Urine Neg (Negative); Blood Urine 3+ (Negative); Glucose Urine UA 2+ (Normal); Ketones Urine Negative (Negative); Leukocyte Esterase Urine Negative (Negative); Nitrate Urine Negative (Negative); Squamous Epithelial Cell Urine 0-4 /hpf (0-5); Sulfosalicylic Acid Urine Positive (Negative); Urobilinogen Urine Norm (Negative); WBC Urine 0-4 /hpf (0-5)
[2021-01-27 23:19] LABS: Alanine Aminotransferase 14 U/L (0-41); Albumin Level 3.1 g/dL (3.5-5.2); Alkaline Phosphatase 109 IU/L (40-130); Anion Gap 28.3 (5-19); Aspartate Amino Transferase 20 U/L (0-40); Calcium 6.9 mg/dL (8.5-10.5); Carbon Dioxide 20 mmol/L (22-29); Chloride 92 mmol/L (98-107); Globulin 3.1 g/dL (1.3-4.6); Glomerular Filtration Rate 4.7 mL/min (90-130); Glucose 103 mg/dL (65-115); Osmolality Calculated 303 mOsm/kg (285-295); Potassium 6.3 mmol/L (3.5-5.1); Sodium 134 mmol/L (136-145); Total Bilirubin 0.2 mg/dL (0.15-1.2); Total Protein 6.2 g/dL (6.6-8.7)
[2021-01-27 23:21] LABS: NT Pro B Type Natriuretic Pept > 35000 pg/mL (0-125)
[2021-01-27 23:22] LABS: Blood Urea Nitrogen 83 mg/dL (6-20)
[2021-01-28 00:13] VITALS: BP 131/89; PULSE 86; RESP 18; O2SAT 98
[2021-01-28 02:00] VITALS: BP 143/85; PULSE 83; RESP 20; TEMP 36.6; O2SAT 95
[2021-01-28 04:00] VITALS: BP 142/85; PULSE 89; RESP 20; TEMP 37.2; O2SAT 93
--- NOTE | 2021-01-28 05:11 | P.HP_ITS ---
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 Patient has been alternating between hemodialysis via left UE fistula and most recently resumed on PD one week prior. No family at bedside however per ER discussion patient has progressed wornseing mental status for past week as well. He is a poor historian. Unclear if he has been doing his PD at home. Laboratory work up on arrival showed a WBC of 5.9, hemoglobin of 8.1, hematocrit of 23.9, and a platelet count of 70 which was a decrease from prior 241 in october. Sodium of 134, potassium of 6.3, chloride of 92, bicarbonate of 20, BUN of 83, and a creatinine of 11.4. UA did not show any evidence of acute infection . Patient was admitted to hospital for nephrology consult for HD and IV abx Review of Systems General: Reports: ROS unobtainable due to medical condition Medications/Allergies Home Medications Medication Instructions Recorded Confirmed Last Taken Type allopurinol 100 mg tablet 100 mg PO DAILY@69901/14/20 11/29/20 11/30/20 History amlodipine 10 mg tablet 10 mg PO DAILY@69901/14/20 11/29/20 11/30/20 History cholecalciferol (vitamin D3) 25 25 mcg PO DAILY@69901/14/20 11/29/20 11/30/20 History mcg (1,000 unit) capsule fluticasone propionate 50 2 spray INTRANASAL DAILY 01/14/20 11/29/20 11/30/20 History mcg/actuation nasal spray,suspension morphine 15 mg tablet,extended 15 mg PO Q4H tab 01/14/20 11/29/20 11/30/20 History release ondansetron HCl 4 mg tablet 4 mg PO Q8H 01/14/20 11/29/20 11/30/20 History tamsulosin 0.4 mg capsule 0.4 mg PO DAILY 01/14/20 11/29/20 11/30/20 History Auryxia 2 tab PO BID 02/02/20 11/29/20 11/30/20 History calcium carbonate [Tums] 200 mg PO BID 02/02/20 11/29/20 11/30/20 History megestrol 40 mg PO DAILY@0700 02/02/20 11/29/20 11/30/20 History esomeprazole magnesium 40 mg PO BID@0700,1900 10/27/20 11/29/20 11/30/20 History metoprolol succinate 75 mg PO DAILY@0700 10/27/20 12/01/20 12/01/20 History One A Day 1 tab PO DAILY 11/29/20 11/29/20 11/30/20 History zinc sulfate 50 mg PO DAILY 11/29/20 11/29/20 11/30/20 History Allergies Allergy/AdvReac Type Severity Reaction Status Date / Time No Known Allergies Allergy Verified 11/21/20 09:07 PFSH Acute PFSH: Medical History Axonal sensorimotor neuropathy Cervical disc disorder with myelopathy of mid-cervical region Paresthesias Spondylolisthesis, cervical region Surgical History History of arthroscopic knee surgery 3x History of arthroscopy of right shoulder History of carpal tunnel surgery of right wrist Dr. Snider History of cholecystectomy History of umbilical hernia repair Peritoneal dialysis catheter in place Family History Father CAD (coronary artery disease) Mother Arthritis Social History Smoking and tobacco status: former smoker Alcohol intake: never Household members: spouse Marital status: Current occupational status: disabled History of recent travel: No Vitals/I&O/Wt Last Vital Signs Temp 98.9 F 01/28/21 04:00 Pulse 89 01/28/21 04:00 Resp 20 H 01/28/21 04:00 BP 142/85 01/28/21 04:00 Pulse Ox 93 01/28/21 04:00 Weight last 48 hrs Weight 86.636 kg Physical Exam Narrative: EXAM NARRATIVE: General : Alert, Awake, confused HEENT : Grossly unremarkable e CVS : RRR Chest - Non-labored respiration Abd: Tenderness to palpation - Diffuse Ext : no edema - LUE fistula Data : 01/27/21 22:30 01/27/21 22:30 Micro: Microbiology 01/27/21 23:08 Blood Culture - Preliminary Blood SPECIMEN COLLECTED 01/27/21 22:59 Blood Culture - Preliminary Blood SPECIMEN COLLECTED A&P Assessment and plan (1) Peritoneal dialysis catheter in place: Status: Acute (2) Altered mental status: Status: Acute (3) ESRD (end stage renal disease): Status: Acute (4) Avascular necrosis of right humeral head: Status: Acute Acute encephalopathy Infectious vs TME / Uremia Baseline mental status unclear Fall precautions Possible SBP Very tender on exam Rocephin 1g IV q12 started for now Fluid analysis order in am Blood culture x2 Procal in am ESRD on PD May need revert to HD Mauricio consult nephrology Hypertension Metoprolol 75 mg ER daily Norvasc 10 mg Po daily HUE Resume Bipap qhs BPH Flomax 0.4 mg PO daily Peptic ulcer disease Protonix 40 mg PO daily Attestations Medical Necessity Statement*: Will require over 2 midnight stay for eval and treatment Time Spent in Patient Care: Greater than 35 minutes (>than 50% of time spent in counselling and/or direct pt care on unit) . Coding Level of Care Code Acute Concrete Paving Supervisor for Audrey Fwd Diagnoses Peritoneal dialysis catheter in place Z99.2 Altered mental status R41.82 ESRD (end stage renal disease) N18.6 Avascular necrosis of right humeral head M87.021
[2021-01-28] MEDS: cefTRIAXone 1,000 MG in sodium chloride 0.9% (plus) 50 ML 100 MG IV (05:35)
[2021-01-28] MEDS: amlodipine 10 mg Tablet PO (06:28)
[2021-01-28] MEDS: metoprolol succinate ER (24 HR) 50 mg Tablet 75 MG PO (06:28)
[2021-01-28 07:53] LABS: Basophils % 0.5 %; Eosinophils # 0.3 10^3/uL (0.0-0.8); Hematocrit 26.8 % (42.0-52.0); Hemoglobin 8.4 g/dL (11.7-16.6); Lymphocytes # 1.5 10^3/uL (0.8-4.8); Lymphocytes % 24.5 %; Mean Corpuscular HGB Conc 31.3 g/dL (30.0-36.0); Mean Corpuscular Hemoglobin 29.3 pg (28.0-34.0); Mean Corpuscular Volume 93.4 fL (80-94); Mean Platelet Volume 12.9 fL (7.4-10.4); Monocytes # 0.8 10^3/uL (0.2-0.9); Monocytes % 12.7 %; Neutrophils # 3.65 10^3/uL (1.8-7.7); Neutrophils % 58.1 %; Nucleated Red Blood Cells % 0 %; Platelet Count 65 10^3/cmm (130-400); Red Blood Count 2.87 10^6/uL (4.1-5.3); Red Cell Distribution Width 15.7 % (12.1-15.1); White Blood Count 6.3 10^3/uL (4.0-10.0)
[2021-01-28 08:00] VITALS: BP 148/82; PULSE 86; RESP 16; TEMP 36.6; O2SAT 93
[2021-01-28] MEDS: tamsulosin 0.4 mg Capsule PO (08:05)
[2021-01-28] MEDS: pantoprazole DR 40 mg Tablet PO (08:05)
[2021-01-28] MEDS: fluticasone nasal spray 16gm Btl 2 SPRAY INTRANASAL (08:05)
[2021-01-28 08:16] LABS: Alanine Aminotransferase 13 U/L (0-41); Albumin Level 2.8 g/dL (3.5-5.2); Alkaline Phosphatase 112 IU/L (40-130); Anion Gap 26.7 (5-19); Aspartate Amino Transferase 23 U/L (0-40); Calcium 7.1 mg/dL (8.5-10.5); Carbon Dioxide 22 mmol/L (22-29); Chloride 90 mmol/L (98-107); Globulin 3.7 g/dL (1.3-4.6); Glucose 82 mg/dL (65-115); Magnesium 1.7 mg/dL (1.7-2.3); Osmolality Calculated 301 mOsm/kg (285-295); Sodium 132 mmol/L (136-145); Total Bilirubin 0.2 mg/dL (0.15-1.2); Total Protein 6.5 g/dL (6.6-8.7)
[2021-01-28 08:17] LABS: Procalcitonin 0.65 ng/mL (0-0.5)
[2021-01-28 08:50] LABS: Blood Urea Nitrogen 91 mg/dL (6-20); Potassium 6.7 mmol/L (3.5-5.1)
--- NOTE | 2021-01-28 10:29 | PM.CONSULT ---
Providers/Reason For Consult Consulting Physician/Specialty*: Nephro Reason for Consult*: ESRD mgmt Attending Physician: Alphonso Flores MD Primary Care Provider: Jhony Kaur, History of Present Illness History of Present Illness Thank you for consultation, today at the pleasure of reviewing this 55-year-old gentleman for evaluation of end-stage renal disease. He has been on hemodialysis now for 43 years on peritoneal dialysis for roughly 2 years. There has been some concern lately that peritoneal dialysis has not been effective for him, he has been intermittently dialyzed via left AV fistula and still has a PD catheter in place. He now presents with lower extremity edema, increasing confusion. Because of hyperkalemia, I did prescribe dialysis from this morning is now seen and examined on dialysis. The treatment is going very well. Typically he does peritoneal dialysis for 8 hours a night, with 6 exchanges of 1900 mL overnight and a day exchange of 1800 mL. Typically he uses yellow solutions i.e. the low concentration of dextrose overnight with occasional use of cream and red solutions. During the day he uses icodextrin. He claims to have drained on night. He was last dialyzed last week. He does have some abdominal discomfort, some tenderness around the exit site although there is no purulent discharge. The last time he drained, the fluid was apparently clear. Review of Systems Narrative: ROS - 12 point review of systems completed per HPI and subjective assessment, this includes Constitutional: No weakness, fatigue Respiratory: No SOB on exertion, comfortable at rest CardioVasc: No chest pain, palpitations Gastrointestinal: No nausea, no vomiting Neurological: No seizures, no AMS Derm: No new rashes, lesions or wounds Immunological: No seasonal and no food allergies Meds/Allergies Home Medications and Allergies Home Medications Medication Instructions Recorded Confirmed Last Taken Type allopurinol 100 mg tablet 100 mg PO DAILY@69901/14/20 11/29/20 11/30/20 History amlodipine 10 mg tablet 10 mg PO DAILY@69901/14/20 11/29/20 11/30/20 History cholecalciferol (vitamin D3) 25 25 mcg PO DAILY@69901/14/20 11/29/20 11/30/20 History mcg (1,000 unit) capsule fluticasone propionate 50 2 spray INTRANASAL DAILY 01/14/20 11/29/20 11/30/20 History mcg/actuation nasal spray,suspension morphine 15 mg tablet,extended 15 mg PO Q4H tab 01/14/20 11/29/20 11/30/20 History release ondansetron HCl 4 mg tablet 4 mg PO Q8H 01/14/20 11/29/20 11/30/20 History tamsulosin 0.4 mg capsule 0.4 mg PO DAILY 01/14/20 11/29/20 11/30/20 History Auryxia 2 tab PO BID 02/02/20 11/29/20 11/30/20 History calcium carbonate [Tums] 200 mg PO BID 02/02/20 11/29/20 11/30/20 History megestrol 40 mg PO DAILY@0700 02/02/20 11/29/20 11/30/20 History esomeprazole magnesium 40 mg PO BID@0700,1900 10/27/20 11/29/20 11/30/20 History metoprolol succinate 75 mg PO DAILY@0700 10/27/20 12/01/20 12/01/20 History One A Day 1 tab PO DAILY 11/29/20 11/29/20 11/30/20 History zinc sulfate 50 mg PO DAILY 11/29/20 11/29/20 11/30/20 History Allergies Allergy/AdvReac Type Severity Reaction Status Date / Time No Known Allergies Allergy Verified 11/21/20 09:07 Current Medications Current Medications Generic Name Dose Route Start Last Admin Trade Name Freq PRN Reason Stop Dose Admin Amlodipine Besylate 10 mg 01/28/21 07:00 01/28/21 06:28 Amlodipine 10 Mg Tablet PO 10 mg DAILY@0700 NERY Administration Fluticasone Propionate 2 spray 01/28/21 09:00 01/28/21 08:05 Fluticasone Nasal [place] 16gm Btl INTRANASAL 2 spray DAILY NERY Administration Ceftriaxone Sodium 1,000 mg/ 50 mls @ 100 mls/hr 01/28/21 05:00 01/28/21 07:26 Sodium Chloride IV Infused Q12H NERY Infusion Protocol Megestrol Acetate 40 mg 01/28/21 07:00 01/28/21 06:29 Megestrol 40 Mg Tablet PO 40 mg DAILY@0700 NERY Administration Metoprolol Succinate 75 mg 01/28/21 07:00 01/28/21 06:28 Metoprolol Succinate Er (24 Hr) 50 Mg Tablet PO 75 mg DAILY@0700 NERY Administration Pantoprazole Sodium 40 mg 01/28/21 09:00 01/28/21 08:[address] 40 Mg Tablet PO 40 mg DAILY NERY Administration Tamsulosin HCl 0.4 mg 01/28/21 09:00 01/28/21 08:05 Tamsulosin 0.4 Mg Capsule PO 0.4 mg DAILY NERY Administration PFSH Acute PFSH: Medical History Axonal sensorimotor neuropathy Cervical disc disorder with myelopathy of mid-cervical region Paresthesias Spondylolisthesis, cervical region Surgical History History of arthroscopic knee surgery 3x History of arthroscopy of right shoulder History of carpal tunnel surgery of right wrist Dr. Snider History of cholecystectomy History of umbilical hernia repair Peritoneal dialysis catheter in place Family History Father CAD (coronary artery disease) Mother Arthritis Social History Smoking and tobacco status: former smoker Alcohol intake: never Household members: spouse Marital status: Current occupational status: disabled History of recent travel: No Vitals/I&O/Wt Last Vital Signs Temp 97.8 F 01/28/21 08:00 Pulse 86 01/28/21 08:00 Resp 16 01/28/21 08:00 BP 148/82 01/28/21 08:00 Pulse Ox 93 01/28/21 08:00 01/27/21 01/28/21 01/28/21 22:59 06:59 14:59 Intake Total 120 / 120 290 / 290 Balance 120 / 120 290 / 290 Weight last 48 hrs Weight 86.636 kg Physical Exam Narrative: EXAM NARRATIVE: Constitutional: Awake, comfortable HEENT: Wet mucosa, no jvp, non icteric Lungs: Bilaterally clear without discernible wheeze or rales in all lung zones CVS: S1 S2, no murmurs Abdo: Soft, BS ok, PD exit site looks good Ext 4: Minimal edema, peripheral perfusion with no cyanosis Neurological: Grossly non-focal Data Micro: Micro: Microbiology 01/27/21 23:08 Blood Culture - Pr eliminary Blood SPECIMEN KARSON [place] 01/27/21 22:59 Blood Culture - Pr eliminary Blood SPECIMEN KARSON [place] A&P Additional A&P Information 1. ESRD During his hospital stay, continue doing hemodialysis on Saturday and Saturday schedule. I did dialyze him for hyperkalemia this morning, will recheck potassium levels later on this afternoon. Dose medication for GFR less than 15 on dialysis. 2. Electrolytes This is suggestible under dialysis and he may be facing peritoneal dialysis failure. During his hospital stay we will continue hemodialysis, will defer to his outpatient team for his long-term follow-up with either hemodialysis or peritoneal dialysis. We will recheck potassium levels later on this afternoon. 3. Abdominal discomfort We will check PD fluid for cell count, Gram stain and culture. If PD fluid is greater than 100/mm acute, I will treat for PD peritonitis. 4. Chronic ESRD issues This should be managed as an outpatient, continue home medications. If he does remain in house for prolonged period time I will treat his anemia etc. Thank you for consultation, it is a pleasure to follow these cases with you Exam and interview performed with aid of bedside RN using telemedicine Time spent 20 min inc > 50% of time in face to face counseling Man Ott MD [facility] [phone] Coding Level of Care Code Acute Digester Operator Helper for Audrey Almanza
[2021-01-28 14:50] LABS: Peritoneal Fluid Spec Gravity 1.005
[2021-01-28 14:57] LABS: Mononuclear #, Pertinoneal Fl 0.775 10^3/uL; Polynuclear # Cells, Perit 2.147 10^3/uL
[2021-01-28 15:02] LABS: Pathology Referral Yes; RBC Pertioneal Fluid 1 10^3/uL; WBC Peritoneal Fluid 2922 /uL
[2021-01-28 15:27] LABS: C Reactive Protein 104.6 mg/L (0.0-4.9); Iron 43 ug/dL (59-158); Percent Saturation 24.5 % (20-50); Thyroid Stimulating Hormone 4.55 uIU/mL (0.27-4.20); Total Iron Binding Capacity 175 mcg/dl; Unsaturated Iron Binding 132 ug/dL (112-347)
[2021-01-28 15:35] LABS: Albumin Peritoneal Fluid 1.6 g/dL; Total Protein Peritoneal Fluid 3.2 g/dL
[2021-01-28 15:36] LABS: Amylase Peritoneal Fluid < 3 U/L (88-109)
[2021-01-28 15:49] LABS: Appearance, Peritoneal Fluid Hazy (Clear); Color, Peritoneal Fluid Pale Yellow (Pale Yellow)
[2021-01-28 16:00] VITALS: BP 139/82; PULSE 85; RESP 18; TEMP 36.8; O2SAT 96
--- NOTE | 2021-01-28 16:04 | PM.PN ---
Subjective Subjective: Interval history: Patient admitted overnight. H&P and labs noted. Today morning examination patient is in hemodialysis. Patient looks weak and lethargic. Denies any nausea vomiting, headache. Abdomen tender to examine. Vitals/I&O/Wt Last Vital Signs Temp 98.3 F 01/28/21 16:00 Pulse 85 01/28/21 16:00 Resp 18 01/28/21 16:00 BP 139/82 01/28/21 16:00 Pulse Ox 96 01/28/21 16:00 01/28/21 01/28/21 01/28/21 06:59 14:59 22:59 Intake Total 120 / 120 290 / 290 Balance 120 / 120 290 / 290 Weight last 48 hrs Weight 86.636 kg Physical Exam Narrative: EXAM NARRATIVE: General: No acute distress, AO x 1-2, lethargic, confused HEENT: PERRLA, pupils bilaterally equal and reactive Chest: Normal vesicular breath sounds, no added sounds, equal good air entry bilaterally CVS: S1-S2 regular, no murmurs, no tachycardia, no gallops, no rubs Abdomen: Soft, tender at the site of PD catheter, no granulation seen, no organomegaly, bowel sounds present Neuro: No focal deficits, no facial deformity, power 5/5 in all limbs Data : 01/28/21 06:53 01/28/21 06:53 Micro: Microbiology 01/27/21 23:08 Blood Culture - Preliminary Blood SPECIMEN COLLECTED 01/27/21 22:59 Blood Culture - Preliminary Blood SPECIMEN COLLECTED A&P Assessment and plan (1) Altered mental status: Status: Acute (2) Peritonitis associated with peritoneal dialysis: Status: Acute (3) Peritoneal dialysis catheter in place: Status: Acute (4) ESRD (end stage renal disease): Status: Acute (5) Avascular necrosis of right humeral head: Status: Acute (6) Hypertension: Status: Acute Additional A&P Information Altered mental status: Could be secondary to uremia from insufficient dialysis versus sepsis due to possible PD peritonitis. Check PD fluid analysis, PD fluid glucose, PD fluid culture. For now start patient on Zosyn. We will de-escalate antibiotics as per the culture results. Check MRSA swab, blood cultures. Check urine Legionella, bacterial antigen. Keep mean artery pressure was 65. Fall precautions. End-stage renal disease on peritoneal dialysis: It seems patient has hemodialysis in between as well. Appreciate nephrology recommendations. For now hemodialysis Saturday, Saturday, Saturday. Hypertension: Goal blood pressure less than 140/90 of Hg. For now continue with home medication of metoprolol 75 mg daily, Norvasc 10 mg daily. Will uptitrate medications as needed. Continue with BiPAP for obstructive sleep apnea. Continue other chronic medications including fluticasone, Flomax, oral iron supplementation. It seems patient is on morphine 15 mg extended release tablet every 4 hours at home as well. Med rec not done. For now we will confirm with patient when possible if patient is on this medication otherwise we will have to call pharmacy. No signs of withdrawal for now. We will continue to monitor. Full code. Renal diet. PT/OT evaluation. Heparin for DVT prophylaxis. Protonix for PUD prophylaxis Attestations Medical Necessity Statement*: Mark Mccabe is being changed to inpatient status as stay will now exceed 2 midnights. Ongoing hospital care is necessary for altered mental status in setting of insufficient dialysis causing uremia, PD peritonitis, sepsis Time Spent in Patient Care: Greater than 35 minutes (>than 50% of time spent in counselling and/or direct pt care on unit). Coding Level of Care Code Acute Education General Manager for g Fwd Diagnoses Altered mental status R41.82 Peritonitis associated with peritoneal dialysis T85.71XA Peritoneal dialysis catheter in place Z99.2 ESRD (end stage renal disease) N18.6 Avascular necrosis of right humeral head M87.021 Hypertension I10
[2021-01-28 16:51] LABS: Blood Urea Nitrogen 35 mg/dL (6-20); Calcium 7.5 mg/dL (8.5-10.5); Carbon Dioxide 26 mmol/L (22-29); Chloride 95 mmol/L (98-107); Glomerular Filtration Rate 8.8 mL/min (90-130); Glucose 90 mg/dL (65-115); Iron 45 ug/dL (59-158); Osmolality Calculated 286 mOsm/kg (285-295); Percent Saturation 24.8 % (20-50); Sodium 134 mmol/L (136-145); Total Iron Binding Capacity 181 mcg/dl; Unsaturated Iron Binding 136 ug/dL (112-347)
[2021-01-28 16:54] LABS: Anion Gap 17.7 (5-19); Potassium 4.7 mmol/L (3.5-5.1)
[2021-01-28 17:27] LABS: Ferritin 3926 ng/mL (30-400)
[2021-01-28] MEDS: ferrous gluconate 324 mg Tablet PO (18:09)
[2021-01-28] MEDS: piperacillin-tazobactam 3.375 GM in sodium chloride 0.9% (plus) 50 ML IV (18:09)
[2021-01-28] MEDS: heparin 5,000 unit/mL INJ 1 mL 5000 UNIT SUBCUT (18:10)
[2021-01-28 18:53] VITALS: BP 150/84; PULSE 85; RESP 21; TEMP 37.5; O2SAT 95
[2021-01-28] MEDS: ondansetron 2 mg/ML SDV 2 mL 4 MG IVP (19:32)
[2021-01-28] MEDS: acetaminophen 325 mg Tablet 650 MG PO (22:25)
[2021-01-29] VITALS: BP 145/81; PULSE 82; RESP 19; TEMP 36.8; O2SAT 95
[2021-01-29] MEDS: acetaminophen 325 mg Tablet 650 MG PO ×3 (03:10→21:49)
--- NOTE | 2021-01-29 03:13 | PC.NURSE ---
Patient was complaining of pain in his abdomen. Patient only has tylenol for pain and he cannot have it for another hour. Dr. Estrada on floor and okayed to give tylenol early.
[2021-01-29 04:00] VITALS: BP 142/83; PULSE 80; RESP 19; TEMP 37.4; O2SAT 94
[2021-01-29] MEDS: heparin 5,000 unit/mL INJ 1 mL 5000 UNIT SUBCUT ×2 (05:13→16:54)
[2021-01-29] MEDS: piperacillin-tazobactam 3.375 GM in sodium chloride 0.9% (plus) 50 ML IV (05:17)
[2021-01-29 06:07] LABS: Basophils % 0.4 %; Eosinophils # 0.2 10^3/uL (0.0-0.8); Eosinophils % 4.6 %; Hematocrit 25.7 % (42.0-52.0); Lymphocytes # 1.6 10^3/uL (0.8-4.8); Lymphocytes % 34.7 %; Mean Corpuscular HGB Conc 31.1 g/dL (30.0-36.0); Mean Corpuscular Volume 93.1 fL (80-94); Mean Platelet Volume 12.8 fL (7.4-10.4); Monocytes # 0.6 10^3/uL (0.2-0.9); Monocytes % 12.3 %; Neutrophils # 2.18 10^3/uL (1.8-7.7); Nucleated Red Blood Cells % 0 %; Platelet Count 69 10^3/cmm (130-400); Red Blood Count 2.76 10^6/uL (4.1-5.3); Red Cell Distribution Width 15.7 % (12.1-15.1); White Blood Count 4.6 10^3/uL (4.0-10.0)
[2021-01-29] MEDS: metoprolol succinate ER (24 HR) 50 mg Tablet 75 MG PO (06:08)
[2021-01-29] MEDS: amlodipine 10 mg Tablet PO (06:08)
[2021-01-29 06:29] LABS: Alanine Aminotransferase 12 U/L (0-41); Alkaline Phosphatase 100 IU/L (40-130); Aspartate Amino Transferase 17 U/L (0-40); Blood Urea Nitrogen 42 mg/dL (6-20); Calcium 7.3 mg/dL (8.5-10.5); Carbon Dioxide 26 mmol/L (22-29); Chloride 98 mmol/L (98-107); Globulin 3.2 g/dL (1.3-4.6); Glomerular Filtration Rate 7.4 mL/min (90-130); Glucose 80 mg/dL (65-115); Osmolality Calculated 297 mOsm/kg (285-295); Sodium 139 mmol/L (136-145); Total Bilirubin 0.2 mg/dL (0.15-1.2); Total Protein 6.2 g/dL (6.6-8.7)
[2021-01-29 07:41] LABS: Estmated Average Glucose 80; Hemoglobin A1C 4.4 % (4.0-6.0)
[2021-01-29 07:42] VITALS: BP 149/81; PULSE 79; RESP 16; TEMP 36.8; O2SAT 94
[2021-01-29] MEDS: ferrous gluconate 324 mg Tablet PO ×2 (07:56→16:53)
[2021-01-29] MEDS: tamsulosin 0.4 mg Capsule PO (07:56)
[2021-01-29] MEDS: pantoprazole DR 40 mg Tablet PO (07:56)
--- NOTE | 2021-01-29 09:03 | P.PN_ITS ---
Subjective Subjective: Interval history: Ms. Mccabe feels okay today. He still has some abdominal discomfort. PD cell count noted to be elevated at 2992. Last PD drain was a few days ago which was apparently clear. He had dialysis yesterday and tolerated this treatment very well. No other acute new uremic symptoms. No extremity edema or other hypervolemic symptoms. Vitals/I&O/Wt Last Vital Signs Temp 98.3 F 01/29/21 07:42 Pulse 79 01/29/21 07:42 Resp 16 01/29/21 07:42 BP 149/81 01/29/21 07:42 Pulse Ox 94 01/29/21 07:42 01/28/21 01/29/21 01/29/21 22:59 06:59 14:59 Intake Total 50 / 340 240 / 580 240 / 240 Output Total 200 / 200 Balance 50 / 340 40 / 380 240 / 240 Weight last 48 hrs Weight 86.636 kg Physical Exam Narrative: EXAM NARRATIVE: Constitutional: Awake, comfortable HEENT: Wet mucosa, no jvp, non icteric Lungs: Bilaterally clear without discernible wheeze or rales in all lung zones CVS: S1 S2, no murmurs Abdo: Soft, BS ok, PD exit site looks good Ext 4: Minimal edema, peripheral perfusion with no cyanosis Neurological: Grossly non-focal Data : 01/29/21 04:03 01/29/21 04:03 Micro: Microbiology 01/28/21 13:30 Gram Stain - Final Ascites Fluid Body Fluid Culture - Preliminary 01/29/21 04:15 Bacterial Antigens - Final Urine Kidney 01/29/21 04:15 Legionella Urinary Antigen - Final Urethra 01/27/21 23:08 Blood Culture - Preliminary Blood NEGATIVE TO DATE 01/27/21 22:59 Blood Culture - Preliminary Blood NEGATIVE TO DATE A&P Additional A&P Information 1. ESRD During his hospital stay, continue doing hemodialysis on Saturday and Saturday schedule. 2K, UF 2-3L I will do PD exchanges to treat peritonitis but not for clearance per se. Dose medication for GFR less than 15 on dialysis. 2. Electrolytes Normalization of electrolytes after dialysis yesterday 3. Abdominal discomfort PD fluid positive for leukocytes consistent with a diagnosis of PD peritonitis. Rare GNR was seen in PD fluid. We will give him empirical treatment with a combination of cefepime and vancomycin intraperitoneally pending final isolate. We will give 1 g of each with a 2 L, 2.5% solution exchange daily. Once cultures are available we can de-escalate antibiotics. We will plan to give this for least 2 weeks. Recheck PD fluid cell count tomorrow, if progressive improvement, potential he can be discharged with outpatient IP antibiotics orchestrated by outpatient team (outpatient PD nurse is Rachel Branham telephone [phone]) 4. Chronic ESRD issues This should be managed as an outpatient, continue home medications. If he does remain in house for prolonged period time I will treat his anemia etc. Thank you for consultation, it is a pleasure to follow these cases with you Exam and interview performed with aid of bedside RN using telemedicine Time spent 20 min inc > 50% of time in face to face counseling Man Ott MD [facility] [phone] Attestations Medical Necessity Statement*: Eval for PD peritonitis Coding Level of Care Code Acute University Archivist for Audrey Almanza
--- NOTE | 2021-01-29 10:39 | P.PN_ITS ---
Subjective Subjective: Interval history: No acute events overnight. Patient remains comfortable. Has remained hemodynamically stable. Still complaining of abdominal pain. Denies any nausea, vomiting, headache. Eating well. Vitals/I&O/Wt Last Vital Signs Temp 98.3 F 01/29/21 07:42 Pulse 79 01/29/21 07:42 Resp 16 01/29/21 07:42 BP 149/81 01/29/21 07:42 Pulse Ox 94 01/29/21 07:42 01/28/21 01/29/21 01/29/21 22:59 06:59 14:59 Intake Total 50 / 340 240 / 580 290 / 290 Output Total 200 / 200 Balance 50 / 340 40 / 380 290 / 290 Weight last 48 hrs Weight 86.636 kg Physical Exam Narrative: EXAM NARRATIVE: General: No acute distress, AO x 1-2, lethargic, confused HEENT: PERRLA, pupils bilaterally equal and reactive Chest: Normal vesicular breath sounds, no added sounds, equal good air entry bilaterally CVS: S1-S2 regular, no murmurs, no tachycardia, no gallops, no rubs Abdomen: Soft, tender at the site of PD catheter, no granulation seen, no or ganomegaly, bowel sounds present Neuro: No focal deficits, no facial deformity, power 5/5 in all limbs Data : 01/29/21 04:03 01/29/21 04:03 Micro: Microbiology 01/28/21 13:30 Gram Stain - Final Ascites Fluid Body Fluid Culture - Preliminary 01/29/21 04:15 Bacterial Antigens - Final Urine Kidney 01/29/21 04:15 Legionella Urinary Antigen - Final Urethra 01/27/21 23:08 Blood Culture - Preliminary Blood NEGATIVE TO DATE 01/27/21 22:59 Blood Culture - Preliminary Blood NEGATIVE TO DATE Microbiology 01/28/21 13:30 Ascites Fluid Gram Stain - Final 01/28/21 13:30 Ascites Fluid Body Fluid Culture - Preliminary 01/29/21 04:15 Urine Kidney Bacterial Antigens - Final 01/29/21 04:15 Urethra Legionella Urinary Antigen - Final 01/27/21 23:08 Blood Blood Culture - Preliminary NEGATIVE TO DATE 01/27/21 22:59 Blood Blood Culture - Preliminary NEGATIVE TO DATE A&P Assessment and plan (1) Altered mental status: Status: Acute (2) Peritonitis associated with peritoneal dialysis: Status: Acute (3) Peritoneal dialysis catheter in place: Status: Acute (4) ESRD (end stage renal disease): Status: Acute (5) Avascular necrosis of right humeral head: Status: Acute (6) Hypertension: Status: Acute Additional A&P Information Altered mental status:Secondary to uremia from insufficient dialysisalong wit PD peritonitis. PD fluid analysis reviewed and consistent with PD peritonitis. MRSA results awaited. C/d/w Dr. Booker from nephrology. Plan to start on intraperitoneal vancomycin and cefepime. Stop Zosyn. We will follow up culture results from PD fluid. Will repeat PD studies tomorrow and if the white count is trending down can plan for discharge on cefepime and vancomycin through PD catheter for next 2 weeks. Keep mean artery pressure was 65. Fall precautions. End-stage renal disease on peritoneal dialysis: It seems patient has hemo dialysis in between as well. Appreciate nephrology recommendations. For now hemodialysis Saturday, Saturday, Saturday. Hypertension: Goal blood pressure less than 140/90 of Hg. For now continue with home medication of metoprolol 75 mg daily, Norvasc 10 mg daily. Will uptitrate medications as needed. Continue with BiPAP for obstructive sleep apnea. Continue other chronic medications including fluticasone, Flomax, oral iron supplementation. It seems patient is on morphine 15 mg extended release tablet every 4 hours at home as well. Med rec not done. For now we will confirm with patient when p ossible if patient is on this medication otherwise we will have to call pharmacy. No signs of withdrawal for now. We will continue to monitor. Full code. Renal diet. PT/OT evaluation. Heparin for DVT prophylaxis. Protonix for PUD prophylaxis Attestations Medical Necessity Statement*: Requires further hospitalization for management of PD peritonitis Time Spent in Patient Care: Greater than 35 minutes (>than 50% of time spent in counselling and/or direct pt care on unit) . Coding Level of Care Code Acute Service Shop Foreman for Chg Fwd Diagnoses Altered mental status R41.82 Peritonitis associated with peritoneal dialysis T85.71XA Peritoneal dialysis catheter in place Z99.2 ESRD (end stage renal disease) N18.6 Avascular necrosis of right humeral head M87.021 Hypertension I10
[2021-01-29 11:13] VITALS: BP 145/81; PULSE 75; RESP 16; TEMP 36.7; O2SAT 93
[2021-01-29 11:18] LABS: Reticulocyte % 0.8 % (0.5-2.0)
[2021-01-29 11:44] LABS: T3 Free 2.5 PG/ML (2.0-4.4)
[2021-01-29 15:23] VITALS: BP 134/79; PULSE 76; RESP 16; TEMP 36.8; O2SAT 94
--- NOTE | 2021-01-29 15:38 | PC.NURSE ---
Faxed med list that patient's brought in to [facility] in ER as requested.
[2021-01-29 19:07] VITALS: BP 147/85; PULSE 76; RESP 18; TEMP 36.6; O2SAT 95
[2021-01-29] MEDS: atorvastatin 40 mg Tablet 20 MG PO (20:09)
[2021-01-30] VITALS: BP 154/85; PULSE 75; RESP 18; TEMP 36.9; O2SAT 95
[2021-01-30 03:33] VITALS: BP 145/85; PULSE 80; RESP 18; TEMP 37.2; O2SAT 93
[2021-01-30 05:04] LABS: Basophils % 0.6 %; Eosinophils # 0.2 10^3/uL (0.0-0.8); Eosinophils % 4.2 %; Hematocrit 25.4 % (42.0-52.0); Lymphocytes # 1.9 10^3/uL (0.8-4.8); Lymphocytes % 37.1 %; Mean Corpuscular HGB Conc 31.5 g/dL (30.0-36.0); Mean Corpuscular Hemoglobin 28.8 pg (28.0-34.0); Mean Corpuscular Volume 91.4 fL (80-94); Mean Platelet Volume 12.1 fL (7.4-10.4); Monocytes # 0.5 10^3/uL (0.2-0.9); Monocytes % 10.6 %; Neutrophils # 2.35 10^3/uL (1.8-7.7); Neutrophils % 47.3 %; Nucleated Red Blood Cells % 0 %; Platelet Count 75 10^3/cmm (130-400); Red Blood Count 2.78 10^6/uL (4.1-5.3); Red Cell Distribution Width 15.1 % (12.1-15.1)
[2021-01-30 05:24] LABS: Alanine Aminotransferase 9 U/L (0-41); Albumin Level 2.7 g/dL (3.5-5.2); Alkaline Phosphatase 82 IU/L (40-130); Anion Gap 19.8 (5-19); Aspartate Amino Transferase 17 U/L (0-40); Blood Urea Nitrogen 46 mg/dL (6-20); Calcium 7.2 mg/dL (8.5-10.5); Carbon Dioxide 26 mmol/L (22-29); Chloride 98 mmol/L (98-107); Globulin 3.1 g/dL (1.3-4.6); Glomerular Filtration Rate 5.8 mL/min (90-130); Glucose 84 mg/dL (65-115); Osmolality Calculated 299 mOsm/kg (285-295); Potassium 4.8 mmol/L (3.5-5.1); Sodium 139 mmol/L (136-145); Total Bilirubin 0.2 mg/dL (0.15-1.2); Total Protein 5.8 g/dL (6.6-8.7)
[2021-01-30] MEDS: heparin 5,000 unit/mL INJ 1 mL 5000 UNIT SUBCUT ×2 (06:03→17:00)
[2021-01-30] MEDS: amlodipine 10 mg Tablet PO (06:04)
[2021-01-30] MEDS: metoprolol succinate ER (24 HR) 50 mg Tablet 75 MG PO (06:04)
[2021-01-30] MEDS: acetaminophen 325 mg Tablet 650 MG PO ×2 (06:07→13:50)
[2021-01-30 07:11] VITALS: BP 148/85; PULSE 76; RESP 18; TEMP 37.2; O2SAT 92
[2021-01-30] MEDS: tamsulosin 0.4 mg Capsule PO (07:50)
[2021-01-30] MEDS: ferrous gluconate 324 mg Tablet PO ×2 (07:50→17:00)
[2021-01-30] MEDS: pantoprazole DR 40 mg Tablet PO (07:50)
[2021-01-30] MEDS: fluticasone nasal spray 16gm Btl 2 SPRAY INTRANASAL (07:52)
--- NOTE | 2021-01-30 07:55 | PC.NURSE ---
Patient to Dialysis at this time.
--- NOTE | 2021-01-30 10:09 | PM.PN ---
Subjective Subjective: Interval history: No new issues today. Still has some belly pain, mild, no nausea or vomiting. Seen on dialysis, going well, no edema and no other volume assoc Sx. Hemodynamics robust. No fevers, chills etc Vitals/I&O/Wt Last Vital Signs Temp 99.0 F 01/30/21 07:11 Pulse 76 01/30/21 07:11 Resp 18 01/30/21 07:11 BP 148/85 01/30/21 07:11 Pulse Ox 92 01/30/21 07:11 01/29/21 01/30/21 01/30/21 22:59 06:59 14:59 Intake Total 480 / 1010 360 / 360 Output Total 325 / 325 Balance 155 / 685 360 / 360 Physical Exam Narrative: EXAM NARRATIVE: Constitutional: Awake, comfortable HEENT: Wet mucosa, no jvp, non icteric Lungs: Bilaterally clear without discernible wheeze or rales in all lung zones CVS: S1 S2, no murmurs Abdo: Soft, BS ok, PD exit site looks good Ext 4: Minimal edema, peripheral perfusion with no cyanosis Neurological: Grossly non-focal Data : 01/30/21 04:20 01/30/21 04:20 Micro: Microbiology 01/28/21 15:45 MRSA Culture - Final Nose 01/28/21 13:30 Gram Stain - Final Ascites Fluid Body Fluid Culture - Preliminary 01/29/21 04:15 Bacterial Antigens - Final Urine Kidney A&P Additional A&P Information 1. ESRD During his hospital stay, continue doing hemodialysis on Saturday and Saturday schedule. 2K, UF 2-3L I will do PD exchanges to treat peritonitis but not for clearance per se. Dose medication for GFR less than 15 on dialysis. 2. Electrolytes Normalization of electrolytes after dialysis yesterday 3. Abdominal discomfort PD fluid positive for leukocytes consistent with a diagnosis of PD peritonitis on Sat 01/28. Rare GNR was seen in PD fluid. We will give him empirical treatment with a combination of cefepime and vancomycin intraperitoneally pending final isolate. We will give 1 g of each with a 2 L, 2.5% solution exchange daily. Once cultures are available we can de-escalate antibiotics. We will plan to give this for least 2 weeks. I have requested to instill 1L of 2.5% solution for 2hrs, todrain and then to send the fluid for cell count GS and culture. If improvement is seen we can potential discharge him with outpatient IP antibiotics orchestrated by outpatient team (outpatient PD nurse is Rachel Branham telephone [phone]) 4. Chronic ESRD issues This should be managed as an outpatient, continue home medications. If he does remain in house for prolonged period time I will treat his anemia etc. Thank you for consultation, it is a pleasure to follow these cases with you Exam and interview performed with aid of bedside RN using telemedicine Time spent 20 min inc > 50% of time in face to face counseling Man Ott MD [facility] [phone] Attestations Medical Necessity Statement*: Eval for PD mgmt Coding Level of Care Code Acute Talent Associate for Audrey Almanza
[2021-01-30 12:00] VITALS: BP 150/80; PULSE 76; RESP 18; TEMP 36.8; O2SAT 92
[2021-01-30] MEDS: Dianeal low Ca w/2.5% dex 2,000 mL Bag 1000 ML INTRAPERIT (12:05)
--- NOTE | 2021-01-30 12:52 | PC.NURSE ---
Peritoneal Dialysis completed. Only instilled 1,000 mls per doctors order. !,000 mls was drained out from yesterday. Patient tolerated well.
--- NOTE | 2021-01-30 14:08 | PC.NURSE ---
Dialysis mixed with antibiotics instilled at this time. Patient tolerated well. Dwell time is roughly 24 hours.
[2021-01-30 15:08] LABS: Apprearance, Body Fluid CLEAR; Color, Body Fluid PALE YELLOW
[2021-01-30 15:10] VITALS: BP 154/82; PULSE 80; RESP 18; TEMP 37.3; O2SAT 97
[2021-01-30 15:13] LABS: Body Fluid Polynuclear #Cells 0.028; Body Fluid WBC 94 /uL; Monocytes # Body Fluid 0.066; Mononuclear #, Pertinoneal Fl 0.066 10^3/uL; Polynuclear # Cells, Perit 0.028 10^3/uL; RBC, Body Fluid 0 10^3/uL
[2021-01-30 15:15] LABS: Appearance, Peritoneal Fluid Clear (Clear); Color, Peritoneal Fluid Yellow (Pale Yellow); RBC Pertioneal Fluid 0 10^3/uL; WBC Peritoneal Fluid 94 /uL
--- NOTE | 2021-01-30 19:17 | PC.NURSE ---
Report to Steve EWING at this time.
[2021-01-30 19:36] VITALS: BP 174/92; PULSE 78; RESP 18; TEMP 37.2; O2SAT 94
--- NOTE | 2021-01-30 20:21 | PM.PN ---
Subjective Subjective: Interval history: Reports he is still having abdominal pain, 5/10 currently. Yesterday it was worse. Denies fever or chills. No nausea or vomiting. Had some loose stool today. No blood in stool. No dark black stools. Vitals/I&O/Wt Last Vital Signs Temp 98.9 F 01/30/21 19:36 Pulse 78 01/30/21 19:36 Resp 18 01/30/21 19:36 BP 174/92 01/30/21 19:36 Pulse Ox 94 01/30/21 19:36 01/30/21 01/30/21 01/30/21 06:59 14:59 22:59 Intake Total 610 / 610 2120 / 2730 Balance 610 / 610 2120 / 2730 Physical Exam Const: COMMON NORMALS: no acute distress and patient oriented x3 HENMT: COMMON NORMALS: oropharynx normal Neck/C-Spine: COMMON NORMALS: no JVD Resp: COMMON NORMALS: normal respiratory effort and clear to auscultation bilaterally AUSCULTATION: clear to auscultation bilaterally Cardio: COMMON NORMALS: no JVD, regular rhythm, S1 normal heart sound present, S2 normal heart sound present and No murmurs present (Cardio) RHYTHM: regular rhythm HEART SOUNDS: S1 normal heart sound present and S2 normal heart sound present GI: COMMON NORMALS: Normal to inspection, nondistended, normoactive bowel sounds present, Soft to palpation and non-tender PALPATION: Yes Soft to palpation Extremity: COMMON NORMALS: no joint enlargement GENERAL: Yes edema (Trace ankle edema) Neuro: COMMON NORMALS: patient oriented x3 and moves all extremities Skin: COMMON NORMALS: no rashes or lesions noted GENERAL SKIN EXAM: no rashes or lesions noted Data : 01/30/21 04:20 01/30/21 04:20 Micro: Microbiology 01/30/21 14:24 Gram Stain - Final Ankle - Abdominal 01/28/21 13:30 Gram Stain - Final Ascites Fluid Body Fluid Culture - Preliminary A&P Assessment and plan (1) Altered mental status: Resolved. Status: Acute (2) Peritonitis associated with peritoneal dialysis: Appreciate nephrology recommendations. He underwent additional analysis of peritoneal fluid today. WBC count appears to be decreasing. Follow-up Gram stain and culture. Continue antibiotic infusions. Nephrology to discuss with his nurse tomorrow arrangements regarding additional outpatient infusions. Tomorrow after antibiotic infusion likely may be able to discharge with outpatient follow-up. Status: Acute (3) Peritoneal dialysis catheter in place: Status: Acute (4) ESRD (end stage renal disease): For now continue hemodialysis. Follow-up with nephrology. He follows at [facility]. Status: Acute (5) Avascular necrosis of right humeral head: Chronic. Follow-up with orthopedics. Status: Acute (6) Hypertension: Blood pressure variable, today in the 140s-150s systolic. This evening peak 174/92. Continue amlodipine, Flomax, metoprolol. Status: Acute Additional A&P Information Continue other chronic medications including fluticasone, Flomax, oral iron supplementation. HUE Bipap qhs BPH Flomax 0.4 mg PO daily Peptic ulcer disease Protonix 40 mg PO daily It seems patient is on morphine 15 mg extended release tablet every 4 hours at home as well. Full code. Renal diet. PT/OT. Heparin for DVT prophylaxis. Protonix for PUD prophylaxis Attestations Medical Necessity Statement*: Continue admission for assessment management of peritonitis in setting of peritoneal dialysis, follow-up culture, arrangements for outpatient antibiotic treatment. Coding Level of Care Code Acute Manufacturing Engineering Intern for Chg Fwd Diagnoses Altered mental status R41.82 Peritonitis associated with peritoneal dialysis T85.71XA Peritoneal dialysis catheter in place Z99.2 ESRD (end stage renal disease) N18.6 Avascular necrosis of right humeral head M87.021 Hypertension I10
[2021-01-30] MEDS: atorvastatin 40 mg Tablet 20 MG PO (21:03)
[2021-01-31] VITALS: BP 170/92; PULSE 84; RESP 16; TEMP 37.7; O2SAT 95
[2021-01-31 04:00] VITALS: BP 147/65; PULSE 85; RESP 18; TEMP 37.5; O2SAT 95
[2021-01-31 05:40] LABS: Basophils % 0.4 %; Eosinophils # 0.2 10^3/uL (0.0-0.8); Eosinophils % 3.4 %; Hematocrit 27.9 % (42.0-52.0); Hemoglobin 8.8 g/dL (11.7-16.6); Lymphocytes # 1.6 10^3/uL (0.8-4.8); Lymphocytes % 31.6 %; Mean Corpuscular HGB Conc 31.5 g/dL (30.0-36.0); Mean Corpuscular Hemoglobin 28.7 pg (28.0-34.0); Mean Corpuscular Volume 90.9 fL (80-94); Mean Platelet Volume 12.2 fL (7.4-10.4); Monocytes # 0.6 10^3/uL (0.2-0.9); Monocytes % 11.5 %; Neutrophils # 2.68 10^3/uL (1.8-7.7); Neutrophils % 52.9 %; Nucleated Red Blood Cells % 0 %; Platelet Count 89 10^3/cmm (130-400); Red Blood Count 3.07 10^6/uL (4.1-5.3); Red Cell Distribution Width 14.7 % (12.1-15.1); White Blood Count 5.1 10^3/uL (4.0-10.0)
[2021-01-31 06:05] LABS: Anion Gap 15.3 (5-19); Blood Urea Nitrogen 20 mg/dL (6-20); Calcium 8.1 mg/dL (8.5-10.5); Carbon Dioxide 29 mmol/L (22-29); Chloride 100 mmol/L (98-107); Glomerular Filtration Rate 9.5 mL/min (90-130); Glucose 78 mg/dL (65-115); Osmolality Calculated 291 mOsm/kg (285-295); Potassium 4.3 mmol/L (3.5-5.1); Sodium 140 mmol/L (136-145)
[2021-01-31] MEDS: heparin 5,000 unit/mL INJ 1 mL 5000 UNIT SUBCUT (06:39)
[2021-01-31] MEDS: metoprolol succinate ER (24 HR) 50 mg Tablet 75 MG PO (06:39)
[2021-01-31] MEDS: acetaminophen 325 mg Tablet 650 MG PO (06:40)
[2021-01-31] MEDS: amlodipine 10 mg Tablet PO (06:41)
[2021-01-31 07:35] VITALS: BP 155/83; PULSE 74; RESP 17; TEMP 37.3; O2SAT 94
[2021-01-31] MEDS: tamsulosin 0.4 mg Capsule PO (08:08)
[2021-01-31] MEDS: pantoprazole DR 40 mg Tablet PO (08:08)
[2021-01-31] MEDS: ferrous gluconate 324 mg Tablet PO (08:08)
[2021-01-31] MEDS: fluticasone nasal spray 16gm Btl 2 SPRAY INTRANASAL (08:10)
--- NOTE | 2021-01-31 10:20 | PC.SOCIAL ---
IMM Update Pg.2 of IMM updated and reviewed with patient, who verbalized understanding. Signed, dated, and timed. Copy placed in chart and provided to patient.
[2021-01-31] MEDS: ondansetron 2 mg/ML SDV 2 mL 4 MG IVP (10:43)
[2021-01-31 11:50] VITALS: BP 150/90; PULSE 82; RESP 20; TEMP 36.3; O2SAT 96
--- NOTE | 2021-01-31 12:54 | P.PN_ITS ---
Subjective Subjective: Interval history: He is complaining of some abdominal discomfort, however, no other new complaints. Hemodialysis went well for him yesterday. Vitals/I&O/Wt Last Vital Signs Temp 97.3 F L 01/31/21 11:50 Pulse 82 01/31/21 11:50 Resp 20 H 01/31/21 11:50 BP 150/90 01/31/21 11:50 Pulse Ox 96 01/31/21 11:50 01/30/21 01/31/21 01/31/21 22:59 06:59 14:59 Intake Total 2360 / 2970 0 / 2970 240 / 240 Output Total 0 / 0 Balance 2360 / 2970 0 / 2970 240 / 240 Physical Exam Narrative: EXAM NARRATIVE: Constitutional: Awake, comfortable HEENT: Wet mucosa, no jvp, non icteric Lungs: Bilaterally clear without discernible wheeze or rales in all lung zones CVS: S1 S2, no murmurs Abdo: Soft, BS ok, PD exit site looks good Ext 4: Minimal edema, peripheral perfusion with no cyanosis Neurological: Grossly non-focal Data : 01/31/21 05:12 01/31/21 05:12 Micro: Microbiology 01/28/21 13:30 Gram Stain - Final Ascites Fluid Body Fluid Culture - Final 01/30/21 14:24 Gram Stain - Final Ankle - Abdominal A&P Additional A&P Information 1. ESRD During his hospital stay, continue doing hemodialysis on Saturday and Saturday schedule. 2K, UF 2-3L I will do PD exchanges to treat peritonitis but not for clearance per se. Dose medication for GFR less than 15 on dialysis. 2. Electrolytes Normalization of electrolytes after dialysis yesterday 3. Abdominal discomfort PD fluid positive for leukocytes consistent with a diagnosis of PD peritonitis with subsequent improvement on recheck. Outpatient care orchestrated with his PD nurse is Rachel Branham telephone [phone] She will continue Fortaz and Vanco IP as outpatient 4. Chronic ESRD issues This should be managed as an outpatient, continue home medications. If he does remain in house for prolonged period time I will treat his anemia etc. Thank you for consultation, it is a pleasure to follow these cases with you Exam and interview performed with aid of bedside RN using telemedicine Time spent 20 min inc > 50% of time in face to face counseling Man Ott MD [facility] [phone] Attestations Medical Necessity Statement*: eval for ESRD and PD mgmt Coding Level of Care Code Acute Therapeutic Case Manager for Audrey Almanza
--- NOTE | 2021-01-31 13:45 | PC.NURSE ---
IV removed intact. Patient tolerated well. Reviewed patient discharge with patient at this time. Patient verbalized understanding of discharge instructions. Patient verbalized understanding of following up with Dialysis tomorrow morning. Patient wheel chaired to private car.
[2021-01-31 13:51] VITALS: BP 150/90; PULSE 82; RESP 20; TEMP 36.3; O2SAT 96
--- NOTE | 2021-01-31 22:13 | PM.DCS ---
Discharge Providers Date of Admission: 01/28/21 13:20 Date of Discharge: January 31, 2021 Attending Provider at Admission: Sammie Castaneda Attending Provider at Discharge: Rober Krueger Primary Care Provider: Jhony Kaur DO Diagnoses at Discharge Discharge Diagnosis (1) Altered mental status: Status: Acute (2) Peritonitis associated with peritoneal dialysis: Status: Acute (3) Peritoneal dialysis catheter in place: Status: Acute (4) ESRD (end stage renal disease): Status: Acute (5) Avascular necrosis of right humeral head: Status: Acute (6) Hypertension: Status: Acute Reason for Visit Reason for Visit: Confused Swelling Hospital Course Hospital Course Pleasant 55-year-old gentleman with ESRD, undergoing peritoneal dialysis which was paused until currently, resumed after recent prolonged hospitalization, other chronic medical conditions including avascular necrosis of the shoulder for which she has been and will be continuing follow-up with orthopedics, was admitted after presenting with altered mental status, with concern for infection, uremia, was empirically started on antibiotic initially IV Rocephin, was initiated on hemodialysis due in part to hyperkalemia, but continued after noted to have peritonitis with abnormal fluid cell counts, gram-negative rods on Gram stain in addition to consideration of possibility of peritoneal dialysis failure. Antibiotics were switched to cefepime, vancomycin intraperitoneal infusions, vancomycin de-escalate due to gram-negative rods. Culture in the unfortunately not revealing with any particular organism. His altered mental status did resolve, electrolyte normalities resolved with hemodialysis. He was having some persistent abdominal pain, but otherwise was doing better. Remains without signs of sepsis. Peritoneal fluid studies were repeated with finding of significant improvement in cell count, down from 2922 WBC to 94 WBC, from hazy to clear fluid. Given stable condition, improvement in peritoneal fluid analysis results, after additional instillation of antibiotic today he returns home with outpatient follow-up and continuation of intraperitoneal antibiotics through his dialysis provider, continuation of hemodialysis, knowing to seek medical attention immediately in case of any deterioration in his condition or concerning symptoms. Physical Exam Const: COMMON NORMALS: no acute distress and patient oriented x3 HENMT: COMMON NORMALS: oropharynx normal Neck/C-Spine: COMMON NORMALS: no JVD Resp: COMMON NORMALS: normal respiratory effort and clear to auscultation bilaterally AUSCULTATION: clear to auscultation bilaterally Cardio: COMMON NORMALS: no JVD, regular rhythm, S1 normal heart sound present, S2 normal heart sound present and No murmurs present (Cardio) RHYTHM: regular rhythm HEART SOUNDS: S1 normal heart sound present and S2 normal heart sound present GI: COMMON NORMALS: Normal to inspection, nondistended, normoactive bowel sounds present, Soft to palpation and non-tender PALPATION: Yes Soft to palpation Extremity: COMMON NORMALS: no joint enlargement GENERAL: Yes edema (Trace ankle edema) Neuro: COMMON NORMALS: patient oriented x3 and moves all extremities Skin: COMMON NORMALS: no rashes or lesions noted GENERAL SKIN EXAM: no rashes or lesions noted Discharge Data Data Completed and Pending: Completed Studies During Hospitalization Category Date Time Status XR chest 1V miguelangel ble [id number] Stat Exams 01/27/21 22:12 Completed Pending at discharge Category Date Time Status Blood Culture Sta t Lab 01/27/21 23:08 Results Body Fluid Cultur e & GS Routine Lab 01/30/21 14:24 Results Labs from last 24 hours 01/31/21 01/31/21 05:12 05:12 WBC 5.1 RBC 3.07 L Hgb 8.8 L Hct 27.9 L MCV 90.9 MCH 28.7 MCHC 31.5 RDW 14.7 Plt Count 89 L MPV 12.2 H Neut % (Auto) 52.9 Lymph % (Auto) 31.6 [place] % (Auto) 11.5 Eos % (Auto) 3.4 Baso % (Auto) 0.4 Neut # (Auto) 2.68 Lymph # (Auto) 1.6 [place] # (Auto) 0.6 Eos # (Auto) 0.2 Baso # (Auto) 0.0 Nucleated RBC % (a uto) 0 Nucleated RBCs # 0.0 Sodium 140 Potassium 4.3 Chloride 100 Carbon Dioxide 29 Anion Gap 15.3 BUN 20 Creatinine 6.2 H* GFR Calculation 9.5 L Glucose 78 Calculated Osmolal ity 291 Calcium 8.1 L Vitals: Last Vital Signs Temp 97.3 F L 01/31/21 13:51 Pulse 82 01/31/21 13:51 Resp 20 H 01/31/21 13:51 BP 150/90 01/31/21 13:51 Pulse Ox 96 01/31/21 13:51 Discharge Plan Discharge Patient Disposition: Home Condition: Stable Prescriptions: Continued allopurinol 100 mg tablet 100 mg PO DAILY@0700 RF: 0 tamsulosin 0.4 mg capsule 0.4 mg PO DAILY RF: 0 fluticasone propionate 50 mcg/actuation spray,suspension 2 spray INTRANASAL DAILY RF: 0 cholecalciferol (vitamin D3) 25 mcg (1,000 unit) capsule 25 mcg PO BID@ RF: 0 morphine 15 mg tablet extended release 15 mg PO Q4H PRN (Reason: Pain) RF: 0 amlodipine 10 mg tablet 10 mg PO DAILY@0700 RF: 0 ondansetron HCl 4 mg tablet 4 mg PO Q8H PRN (Reason: Nausea) RF: 0 multivitamin Tablet 1 tab PO DAILY Qty: 0 RF: 0 zinc sulfate 50 mg zinc (220 mg) Tablet 50 mg PO DAILY RF: 0 calcium carbonate [Tums] 200 mg calcium (500 mg) Tablet,Chewable 200 mg PO BID RF: 0 megestrol 40 mg Tablet 40 mg PO DAILY@0700 RF: 0 metoprolol succinate 50 mg tablet extended release 24 hr 75 mg PO DAILY@0700 RF: 0 esomeprazole magnesium 40 mg capsule,delayed release(DR/EC) 40 mg PO BID@0700,1900 RF: 0 torsemide 20 mg tablet 20 mg PO BID@ RF: 0 Changed atorvastatin 10 mg Tablet 20 mg PO DAILY Qty: 0 RF: 0 Held Auryxia 210 mg iron Tablet 2 tab PO BID RF: 0 Hold Instructions: Resume on 02/07/21. Discharge Orders: Discharge Order (Routine); Ordered 01/31/21 Ordered By: Rober Krueger Referrals: Nephrology [Provider Group] - 4-7 days ([facility]) Jhony Kaur DO [Primary Care Provider] - 02/06/21 8:45 am Discharge Diet: Advance as tolerated Discharge Activity: Increase activity as tolerated and Cpap/Bipap as instructed Patient Instructions: Peritoneal Dialysis Activity Restrictions/Additional Instructions: Continue intraperitoneal antibiotics as instructed your dialysis nurse will be the person of contact for arrangement for continuation of the antibiotic therapy. Follow-up with nephrology in office as well. Continue hemodialysis. Continue to monitor your blood pressures at home. Your blood pressures long-term would benefit from additional optimization. Measure them 3 times daily at least, write down values to bring to your appointment. Please have your kidney doctor and/your primary doctor recheck your blood count including platelet levels which have been improving, although still remain low. Low platelet levels may be disposed to bleeding, so avoid any injury. Please discuss with your primary doctor referral for assessment by orthopedics once her condition improves for assessment of the chronic changes in your right shoulder which may be due to avascular necrosis, condition which may risk destruction of the joint. Discharge Attestations Time Spent in Discharge Care*: greater than 30 min Quality Metrics Clinical Quality Measures During this hospital stay, did patient experience: None Coding Level of Care Code Acute g [facility] note Diagnoses Altered mental status R41.82 Peritonitis associated with peritoneal dialysis T85.71XA Peritoneal dialysis catheter in place Z99.2 ESRD (end stage renal disease) N18.6 Avascular necrosis of right humeral head M87.021 Hypertension I10
== END 2021-01-31 13:45 | disposition home or self-care (01) | DRG 919 ==
LOC: ER 22:44 → MEDSURG 01-28 01:19
PROVIDERS: Internal Medicine Nephrology; Nurse Practitioner Family; Student in an Organized Health Care Education/Training Program; Admitting Provider Hospitalist; Emergency Provider Emergency Medicine; PCP Internal Medicine; Visit Provider Internal Medicine
DX: T85.71XA Infection and inflammatory reaction due to peritoneal dialysis catheter, initial encounter (principal); N18.6 End stage renal disease; K65.8 Other peritonitis; I12.0 Hypertensive chronic kidney disease with stage 5 chronic kidney disease or end stage renal disease; G99.2 Myelopathy in diseases classified elsewhere; G93.40 Encephalopathy, unspecified; M87.821 Other osteonecrosis, right humerus; Y73.1 Therapeutic (nonsurgical) and rehabilitative gastroenterology and urology devices associated with adverse incidents; Z96.612 Presence of left artificial shoulder joint; Z87.11 Personal history of peptic ulcer disease; Z99.2 Dependence on renal dialysis; G47.33 Obstructive sleep apnea (adult) (pediatric); K58.9 Irritable bowel syndrome, unspecified; N40.0 Benign prostatic hyperplasia without lower urinary tract symptoms; E78.5 Hyperlipidemia, unspecified; G62.9 Polyneuropathy, unspecified; M43.12 Spondylolisthesis, cervical region; Z87.891 Personal history of nicotine dependence; E87.5 Hyperkalemia; Z79.891 Long term (current) use of opiate analgesic
CPT/HCPCS: 36415; 71045; 80048; 80053; 80500; 81001; 82042; 82150; 82728; 82945; 83036; 83540; 83550; 83605; 83615; 83735; 83880; 83986; 84145; 84157; 84315; 84439; 84443; 84481; 85025; 85045; 86140; 86403; 87040; 87070; 87075; 87205; 87449; 87641; 89050; 96372; 97116; 97161; 99285; G0378; J0692; J0696; J1644; J2405; J2543; J3370; J8999; Q3014

== ENCOUNTER 2021-02-12 21:23 | Inpatient (IN) | payer MEDICARE, OTHER, SELFPAY ==
[2021-02-12 21:32] VITALS: BP 117/77; PULSE 100; RESP 26; TEMP 38.1; O2SAT 93; BMI 24.4
[2021-02-12 21:34] VITALS: BP 117/77; RESP 26; O2SAT 93
--- NOTE | 2021-02-12 21:49 | XRR_ITS ---
PROCEDURE INFORMATION: Exam: XR Chest Exam date and time: 02/12/2021 9:49 PM Age: 55 years old Clinical indication: Dyspnea; Additional info: Covid TECHNIQUE: Imaging protocol: XR of the chest. Views: 1 view. COMPARISON: CR (CHEST, ) 01/27/2021 10:12 PM FINDINGS: Lungs: Stable streaky opacity in the left lung which could be secondary to pneumonia or atelectasis. Pleural spaces: Unremarkable. No pleural effusion. No pneumothorax. Heart/Mediastinum: There is mild cardiomegaly. Bones/joints: Unremarkable. XR/XR chest 1V portable [id number] IMPRESSION: 1. Mild cardiomegaly. 2. Stable streaky opacity in the left lung which could be secondary to pneumonia or atelectasis.
[2021-02-12 22:00] VITALS: BP 102/78; PULSE 119; RESP 32; O2SAT 96
[2021-02-12 22:18] LABS: ABG PCO2 41.5 mmHg (35-45); ABG PH Result 7.43 (7.35-7.45); Arterial Blood Gas Hematocrit 34.6 % (42-52); Base Excess ABG 2.7 mmol/L (-2.0-2.0); Blood Gas Operator Identificat HARKR; Blood Gas Sample Site Brachial, right; Blood Gas Sample Type Arterial; HCO3 ABG 27.3 mmol/L (22-26); Oxygen Device ROOM AIR; PO2 ABG 58.6 mmHg (80.0-100.0)
[2021-02-12 22:34] VITALS: BP 111/72; RESP 30; O2SAT 97
[2021-02-12 23:04] VITALS: BP 113/77; PULSE 80; RESP 21; O2SAT 98
[2021-02-12 23:08] LABS: D Dimer 1.04 ug/mIFEU (0-0.59)
[2021-02-12 23:10] LABS: Basophils % 0.1 %; Eosinophils # 0.1 10^3/uL (0.0-0.8); Eosinophils % 1.8 %; Hematocrit 32.6 % (42.0-52.0); Hemoglobin 10.5 g/dL (11.7-16.6); Lactic Sepsis W/Reflex 1.1 mmol/L (0.5-2.2); Lymphocytes # 1.7 10^3/uL (0.8-4.8); Lymphocytes % 23.6 %; Mean Corpuscular HGB Conc 32.2 g/dL (30.0-36.0); Mean Corpuscular Hemoglobin 28.3 pg (28.0-34.0); Mean Corpuscular Volume 87.9 fL (80-94); Mean Platelet Volume 11.3 fL (7.4-10.4); Monocytes # 0.6 10^3/uL (0.2-0.9); Monocytes % 7.9 %; Neutrophils # 4.81 10^3/uL (1.8-7.7); Neutrophils % 66.2 %; Nucleated Red Blood Cells % 0 %; Platelet Count 105 10^3/cmm (130-400); Red Blood Count 3.71 10^6/uL (4.1-5.3); Red Cell Distribution Width 14.2 % (12.1-15.1); White Blood Count 7.3 10^3/uL (4.0-10.0)
[2021-02-12 23:22] LABS: Procalcitonin 0.71 ng/mL (0-0.5)
[2021-02-12 23:34] VITALS: BP 118/92; PULSE 85; RESP 23; O2SAT 96
[2021-02-12 23:34] LABS: Alanine Aminotransferase 32 U/L (0-41); Albumin Level 3.2 g/dL (3.5-5.2); Alkaline Phosphatase 137 IU/L (40-130); Anion Gap 21.8 (5-19); Aspartate Amino Transferase 45 U/L (0-40); Blood Urea Nitrogen 29 mg/dL (6-20); C Reactive Protein 48.9 mg/L (0.0-4.9); Carbon Dioxide 25 mmol/L (22-29); Chloride 88 mmol/L (98-107); Globulin 3.6 g/dL (1.3-4.6); Glomerular Filtration Rate 6.7 mL/min (90-130); Glucose 94 mg/dL (65-115); Osmolality Calculated 278 mOsm/kg (285-295); Potassium 3.8 mmol/L (3.5-5.1); Sodium 131 mmol/L (136-145); Total Bilirubin 0.2 mg/dL (0.15-1.2); Total Protein 6.8 g/dL (6.6-8.7)
[2021-02-12 23:41] LABS: Slide Review Slide Review Perform
--- NOTE | 2021-02-12 23:57 | PM.HP ---
Providers/Chief Complaint Primary Care Provider: Jhony Kaur DO Chief Complaint: COVID POSITIVE History of Present Illness Mark Mccabe is a 55 year old male who has history of end-stage renal disease transitioning to peritoneal dialysis after recent treatment of peritonitis, currently getting hemodialysis Saturday, contracted COVID-19 pneumonia on from his presented today with chief complaint of worsening shortness of breath confusion and hypoxia. Patient is stating that he had left-sided thoracotomy done in December secondary to complicated pneumonia at [facility] and after that he developed peritonitis, his last antibiotic dosage was yesterday. He contracted COVID-19 from his and became symptomatic on with shortness of breath and diarrhea, his diarrhea has improved but shortness of breath has been getting worse today noticed that he was confused and very lethargic hence decided to bring him to the ER for further evaluation. At home temperature 101 was noticed he was saturating 88 to 90% on exertion however at rest his O2 saturation stays normal between 90 to 93%. Diagnostics in the ER revealed fever 100.5, tachypnea, normal leukocyte count, high procalcitonin, ferritin, D-dimer chest x-ray shows left-sided postsurgical changes he was requiring 2 to 3 L of oxygen during ambulation, he received first dose of remdesivir and Decadron in the ER along Levaquin Review of Systems Const: Reports: fever(s), chills, body aches and fatigue Eyes: Denies: change in vision ENMT: Reports: hoarseness; Denies: throat pain Card: Denies: chest pain Resp: Reports: dyspnea and non-productive cough GI: Reports: diarrhea : Denies: flank pain Musc: Denies: neck pain Skin/Breast: Denies: rash Neuro: Denies: headache(s) Psych: Reports: anxiety Endo: Denies: polyuria Claudio/Lymph: Denies: easy bruising All/Imm: Denies: urticaria Medications/Allergies Home Medications Medication Instructions Recorded Confirmed Last Taken Type allopurinol 100 mg tablet 100 mg PO DAILY@69901/14/20 01/29/21 11/30/20 History amlodipine 10 mg tablet 10 mg PO DAILY@69901/14/20 01/29/21 11/30/20 History cholecalciferol (vitamin D3) 25 25 mcg PO BID@01/14/20 01/29/21 11/30/20 History mcg (1,000 unit) capsule fluticasone propionate 50 2 spray INTRANASAL DAILY 01/14/20 01/29/21 11/30/20 History mcg/actuation nasal spray,suspension morphine 15 mg tablet,extended 15 mg PO Q4H PRN tab 01/14/20 01/29/21 11/30/20 History release ondansetron HCl 4 mg tablet 4 mg PO Q8H PRN 01/14/20 01/29/21 11/30/20 History tamsulosin 0.4 mg capsule 0.4 mg PO DAILY 01/14/20 01/29/21 11/30/20 History Auryxia 2 tab PO BID 02/02/20 01/29/21 11/30/20 History calcium carbonate [Tums] 200 mg PO BID 02/02/20 01/29/21 11/30/20 History megestrol 40 mg PO DAILY@0700 02/02/20 01/29/21 11/30/20 History esomeprazole magnesium 40 mg PO BID@0700,1900 10/27/20 01/29/21 11/30/20 History metoprolol succinate 75 mg PO DAILY@0700 10/27/20 01/29/21 12/01/20 History multivitamin 1 tab PO DAILY #0 11/29/20 01/29/21 11/30/20 History zinc sulfate 50 mg PO DAILY 11/29/20 01/29/21 11/30/20 History torsemide 20 mg PO BID@01/29/21 01/29/21 Unknown History atorvastatin 20 mg PO DAILY #0 tab 01/31/21 01/29/21 Unknown Rx Allergies Allergy/AdvReac Type Severity Reaction Status Date / Time No Known Allergies Allergy Verified 11/21/20 09:07 PFSH Acute PFSH: Medical History (Updated 02/13/21 @ 02:13 by Jeff Boswell MD) Avascular necrosis of left humeral head Avascular necrosis of right humeral head Axonal sensorimotor neuropathy Carpal tunnel syndrome, bilateral upper limbs Cervical disc disorder with myelopathy of mid-cervical region ESRD (end stage renal disease) Hereditary and idiopathic neuropathy Hyperlipidemia Hypertension Intervertebral disc disorder with radiculopathy of lumbosacral region Paresthesias Peritonitis associated with peritoneal dialysis Spondylolisthesis, cervical region Surgical History History of arthroscopic knee surgery 3x History of arthroscopy of right shoulder History of carpal tunnel surgery of right wrist Dr. Snider History of cholecystectomy History of umbilical hernia repair Peritoneal dialysis catheter in place Family History Father CAD (coronary artery disease) Mother Arthritis Social History Smoking and tobacco status: former smoker Alcohol intake: never Household members: spouse Marital status: Current occupational status: disabled History of recent travel: No Vitals/I&O/Wt Last Vital Signs Temp 100.5 F H 02/12/21 21:32 Pulse 100 02/12/21 21:32 Resp 26 H 02/12/21 21:32 BP 117/77 02/12/21 21:32 Pulse Ox 93 02/12/21 21:32 Weight last 48 hrs Weight 81.647 kg Physical Exam Narrative: EXAM NARRATIVE: Middle-age male who appears stated age He was saturating well on 3 L nasal cannula No active shortness of breath or chest pain No active cyanosis No conversational dyspnea Awake alert oriented x3 GCS 15 S1, S2 sinus rhythm no signs of heart failure or murmur Abdomen soft no signs of peritonitis, peritoneal dialysis catheter without any active drainage Lower extremity no edema gangrene or ulcer Bilateral breath sounds without active wheezing Appropriate mood and affect Hoarseness of voice noted No joint swelling or signs of cellulitis Data : 02/12/21 22:20 02/12/21 22:20 Micro: Microbiology 02/12/21 23:40 Blood Culture - Preliminary Blood SPECIMEN COLLECTED 02/12/21 22:20 Blood Culture - Preliminary Blood SPECIMEN COLLECTED A&P Assessment and plan (1) Hypoxemia: Status: Acute (2) COVID-19: Status: Acute (3) ESRD on hemodialysis: Status: Acute (4) Sepsis: Status: Acute Additional A&P Information Acute hypoxia with sepsis secondary to COVID-19 infection Currently requiring 2 to 3 L of oxygen during ambulation otherwise saturates well at rest, chest x-ray shows postsurgical changes, in December he had left-sided thoracotomy no leukocytosis his lactic acid is normal I do believe his fever and tachypnea secondary to COVID-19 pneumonia with sepsis He received antibiotics in the ER I do not believe he has active posterior lateral bacterial infection his procalcitonin is slightly high which could be secondary to recent peritonitis, I would hold off on adding antibacterial for now and use remdesivir Decadron Trend inflammatory markers and procalcitonin, if procalcitonin is getting significantly high consider adding antibiotics Home O2 evaluation before discharge Telemetry nephro consulted: Patient is getting hemodialyzed, he will transition back to peritoneal dialysis in next few weeks Renal dialysis diet DVT prophylaxis Heparin Full code Will request records from [facility] Medical Necessity Statement*: Anticipating stay in the hospital cross more than 2 midnights for sepsis secondary to COVID-19 pneumonia Time Spent in Patient Care: 30mins Coding Level of Care Code Acute Code Enforcement Inspector for Audrey Almanza Diagnoses Hypoxemia R09.02 COVID-19 U07.1 ESRD on hemodialysis N18.6; Z99.2 Sepsis A41.9
[2021-02-13] VITALS (57 sets, daily range): BP systolic 113–148; BP diastolic 78–100; PULSE 67–91; RESP 10–26; TEMP 36–37.2; O2SAT 87–100
--- NOTE | 2021-02-13 00:26 | W.ED.SOB ---
HPI - SOB/Dyspnea General: Chief Complaint: Shortness of Breath/Dyspnea Stated Complaint: COVID POSITIVE Time Seen by Provider: 02/12/21 21:29 Source: patient Mode of arrival: ambulatory Limitations: altered mental status History of Present Illness: HPI Narrative: Patient is a 55-year-old male with a history of end-stage renal disease on hemodialysis who presents to the emergency department with confusion and shortness of breath. The patient has been coughing and having some shortness of breath for the last 3 days and 2 days ago he was tested for COVID-19 and he tested positive for it. His tested positive for Covid and got off quarantine yesterday. states that today she noticed that he was confused, was not acting right and was worried that he was decompensating. She therefore brought him to the emergency department to be evaluated. He had a fever at home up to about 101. MD elicited complaint: shortness of breath Pertinent past history: other (ESRD on HD) Onset (ago): day(s) (3) Timing: constant Severity: moderate Exacerbating factors: nothing Relieving factors: nothing Associated symptoms: Reports cough, fever(s) and lightheadedness; Deny abdominal pain, chest congestion, chest pain, diaphoresis, dizziness, extremity pain, hemoptysis, myalgias, nausea, orthopnea, palpitations, paresthesias, polydipsia, polyuria, rash, sense of impending doom, syncope or vomiting Treatment prior to arrival: none Review of Systems General: Reports: 10 or more systems reviewed and unremarkable except in HPI and below Const: Reports: fever(s); Denies: diaphoresis Card: Reports: lightheadedness; Denies: chest pain, palpitations, syncope or orthopnea Resp: Denies: hemoptysis or chest congestion GI: Denies: abdominal pain, nausea or vomiting Musc: Denies: extremity pain Neuro: Denies: dizziness Endo: Denies: polyuria or polydipsia PFSH ED PFSH: Medical History (Reviewed 02/13/21 @ 00:33 by Priyank Ochoa MD, [facility] [place]) Axonal sensorimotor neuropathy Cervical disc disorder with myelopathy of mid-cervical region ESRD (end stage renal disease) Hyperlipidemia Hypertension Intervertebral 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 Snider History of cholecystectomy History of umbilical hernia repair Peritoneal dialysis catheter in place Family History (Reviewed 02/13/21 @ 00:33 by Priyank Ochoa MD, [facility] [place]) Father CAD (coronary artery disease) Mother Arthritis Social History (Reviewed 02/13/21 @ 00:33 by Priyank Ochoa MD, [facility] [place]) Smoking and tobacco status: former smoker Alcohol intake: never Household members: spouse Marital status: Current occupational status: disabled History of recent travel: No Physical Exam Const: COMMON NORMALS: no acute distress, average body habitus, patient oriented x3, no limitations, healthy appearing, alert and well nourished HENMT: COMMON NORMALS: normocephalic, atraumatic and moist oral mucous membranes HEAD & SCALP: normocephalic and atraumatic Neck/C-Spine: COMMON NORMALS: no meningeal signs and no JVD Resp: COMMON NORMALS: normal respiratory effort, No retractions, No use of accessory muscles, clear to auscultation bilaterally and percussion normal AUSCULTATION: clear to auscultation bilaterally PERCUSSION: percussion normal Cardio: COMMON NORMALS: no JVD, regular rate, regular rhythm, S1 normal heart sound present, S2 normal heart sound present, No gallops present (Cardio), No clicks present (Cardio), No murmurs present (Cardio), No rub (Cardio) and Peripheral pulses 2+ throughout RATE: regular rate RHYTHM: regular rhythm HEART SOUNDS: S1 normal heart sound present and S2 normal heart sound present PERIPHERAL PULSES: Peripheral pulses 2+ throughout GI: COMMON NORMALS: Normal to inspection, nondistended, normoactive bowel sounds present, Soft to palpation, non-tender, No hepatosplenomegaly present, no masses and no bruits PALPATION: Yes Soft to palpation and Yes No hepatosplenomegaly present Extremity: COMMON NORMALS: normal to inspection, full ROM, capillary refill normal, no calf tenderness and no pedal edema NARRATIVE EXTREMITY EXAM: fistula noted to left forearm Neuro: COMMON NORMALS: patient oriented x3 SENSORIUM/ORIENTATION: Yes alert MENINGEAL SIGNS: Yes no meningeal signs Skin: COMMON NORMALS: no rashes or lesions noted, no wounds, turgor normal, no jaundice, no petechiae and no mottling GENERAL SKIN EXAM: no rashes or lesions noted and turgor normal Course Reevaluation(s): Reevaluation #1: Discussed lab and imaging findings with the patient and his . Advised that blood gas shows he is hypoxemic and because of this he does not qualify for monoclonal antibody infusion. He will however be admitted to the hospital and started on remdesivir. They voiced understanding and they are in agreement with the plan. Time: 23:55 Consultations: Consultation #1: Discussed the patient with Dr. Boswell, hospitalist and he kindly accepted the patient to his service. Time: 23:53 Vital Signs: Vital signs: Vital Signs Temperature 100.5 F H 02/12/21 21:32 Pulse Rate 100 02/12/21 21:32 Respiratory Rate 26 H 02/12/21 21:32 Blood Pressure 117/77 02/12/21 21:32 Pulse Oximetry 93 02/12/21 21:32 MDM - SOB/Dyspnea MDM Narrative: Medical decision making narrative: 55-year-old male who was recently diagnosed with COVID-19 and has had progressively worsening shortness of breath. Today he also became confused. In the emergency department he was noted to be hypoxemic on blood gas and was placed on oxygen supplementation. He is being admitted to the hospitalist service for further evaluation and management. Medical Records: Attestation: I reviewed the patient's medical records. Lab Data: Attestation: I reviewed the patient's lab results. Labs: Lab Results 02/12/21 02/12/21 02/12/21 Range/Units 22:05 22:20 22:20 WBC (4.0-10.0) 10^3/ uL RBC (4.1-5.3) 10^6/u L Hgb (11.7-16.6) g/dL Hct (42.0-52.0) % MCV (80-94) fL MCH (28.0-34.0) pg MCHC (30.0-36.0) g/dL RDW (12.1-15.1) % Plt Count (130-400) 10^3/c mm MPV (7.4-10.4) fL Neut % (Auto) % Lymph % (Auto) % Sherman % (Auto) % Eos % (Auto) % Baso % (Auto) % Neut # (Auto) (1.8-7.7) 10^3/u L Lymph # (Auto) (0.8-4.8) 10^3/u L Sherman # (Auto) (0.2-0.9) 10^3/u L Eos # (Auto) (0.0-0.8) 10^3/u L Baso # (Auto) (0.0-0.1) 10^3/u L Nucleated RBC % (a uto) % Nucleated RBCs # /100WBC D-Dimer 1.04 H (0-0.59) ug/mIFE U Specimen Type Arterial Sample Site Brachial, right ABG pH 7.43 (7.35-7.45) ABG pCO2 41.5 (35-45) mmHg ABG pO2 58.6 L (80.0-100.0) mmH g ABG HCO3 27.3 H (22-26) mmol/L ABG Base Excess 2.7 H (-2.0-2.0) mmol/ L Benji Test N/a Hematocrit 34.6 L (42-52) % O2 Delivery Device Room air FiO2 21.0 % Channel Business Manager ID Harkr Sodium 131 L (136-145) mmol/L Potassium 3.8 (3.5-5.1) mmol/L Chloride 88 L (98-107) mmol/L Carbon Dioxide 25 (22-29) mmol/L Anion Gap 21.8 H (5-19) BUN 29 H (6-20) mg/dL Creatinine 8.4 H* (0.7-1.2) mg/dL GFR Calculation 6.7 L (90-130) mL/min Glucose 94 (65-115) mg/dL Calculated Osmolal ity 278 L (285-295) mOsm/k g Lactic Acid (0.5-2.2) mmol/L Calcium 8.0 L (8.5-10.5) mg/dL Total Bilirubin 0.2 (0.15-1.2) mg/dL AST 45 H (0-40) U/L ALT 32 (0-41) U/L Alkaline Phosphata se 137 H (40-130) IU/L C-Reactive Protein 48.9 H (0.0-4.9) mg/L Total Protein 6.8 (6.6-8.7) g/dL Albumin 3.2 L (3.5-5.2) g/dL Globulin 3.6 (1.3-4.6) g/dL Procalcitonin 0.71 H (0-0.5) ng/mL 02/12/21 02/12/21 Range/Units 22:20 22:20 WBC 7.3 (4.0-10.0) 10^3/ uL RBC 3.71 L (4.1-5.3) 10^6/u L Hgb 10.5 L (11.7-16.6) g/dL Hct 32.6 L (42.0-52.0) % MCV 87.9 (80-94) fL MCH 28.3 (28.0-34.0) pg MCHC 32.2 (30.0-36.0) g/dL RDW 14.2 (12.1-15.1) % Plt Count 105 L (130-400) 10^3/c mm MPV 11.3 H (7.4-10.4) fL Neut % (Auto) 66.2 % Lymph % (Auto) 23.6 % Sherman % (Auto) 7.9 % Eos % (Auto) 1.8 % Baso % (Auto) 0.1 % Neut # (Auto) 4.81 (1.8-7.7) 10^3/u L Lymph # (Auto) 1.7 (0.8-4.8) 10^3/u L Sherman # (Auto) 0.6 (0.2-0.9) 10^3/u L Eos # (Auto) 0.1 (0.0-0.8) 10^3/u L Baso # (Auto) 0.0 (0.0-0.1) 10^3/u L Nucleated RBC % (a uto) 0 % Nucleated RBCs # 0.0 /100WBC D-Dimer (0-0.59) ug/mIFE U Specimen Type Sample Site ABG pH (7.35-7.45) ABG pCO2 (35-45) mmHg ABG pO2 (80.0-100.0) mmH g ABG HCO3 (22-26) mmol/L ABG Base Excess (-2.0-2.0) mmol/ L Benji Test Hematocrit (42-52) % O2 Delivery Device FiO2 % Channel Business Manager ID Sodium (136-145) mmol/L Potassium (3.5-5.1) mmol/L Chloride (98-107) mmol/L Carbon Dioxide (22-29) mmol/L Anion Gap (5-19) BUN (6-20) mg/dL Creatinine (0.7-1.2) mg/dL GFR Calculation (90-130) mL/min Glucose (65-115) mg/dL Calculated Osmolal ity (285-295) mOsm/k g Lactic Acid 1.1 (0.5-2.2) mmol/L Calcium (8.5-10.5) mg/dL Total Bilirubin (0.15-1.2) mg/dL AST (0-40) U/L ALT (0-41) U/L Alkaline Phosphata se (40-130) IU/L C-Reactive Protein (0.0-4.9) mg/L Total Protein (6.6-8.7) g/dL Albumin (3.5-5.2) g/dL Globulin (1.3-4.6) g/dL Procalcitonin (0-0.5) ng/mL Imaging Data^: CXR: Attestation: I personally reviewed and interpreted this imaging study as follows: Radiologist's impression: [address] [id number] ReportSigned Patient: Mark Mccabe #: [id number]: 1965Acct#:[id number]/Sex: 55 / MADM Date: 02/12/21Loc: ERRoom/Bed:Attending Dr: Ordering Provider/Ordering MD: Priyank Ochoa MD, [facility] [place] Date of Service: 02/12/21 Procedure(s): XR chest 1V portable [id number] Accession Number(s): [id number] Report Number: [id number] PROCEDURE INFORMATION: Exam: XR Chest Exam date and time: 02/12/2021 9:49 PM Age: 55 years old Clinical indication: Dyspnea; Additional info: Covid TECHNIQUE: Imaging protocol: XR of the chest. Views: 1 view. COMPARISON: CR (CHEST, ) 01/27/2021 10:12 PM FINDINGS: Lungs: Stable streaky opacity in the left lung which could be secondary to pneumonia or atelectasis. Pleural spaces: Unremarkable. No pleural effusion. No pneumothorax. Heart/Mediastinum: There is mild cardiomegaly. Bones/joints: Unremarkable. XR/XR chest 1V portable [id number] IMPRESSION: 1. Mild cardiomegaly. 2. Stable streaky opacity in the left lung which could be secondary to pneumonia or atelectasis. Dictated By:Sigrid rTan By:Sigrid Tran Date/Time:02/12/212346DD/ 45 Discharge Plan Discharge Patient Disposition: Admitted As Inpatient Admit Provider: Jeff Boswell Clinical Impression: Hypoxemia, COVID-19, ESRD on hemodialysis Condition: Stable Coding Level of Care Code ED Human Resources Assistant for [facility]rey [facility]
[2021-02-13] MEDS: dexamethasone 4 mg/mL INJ 6 MG IVP (00:45)
[2021-02-13 01:00] LABS: Ferritin 1143 ng/mL (30-400)
[2021-02-13] MEDS: remdesivir 200 MG in sodium chloride 0.9% (100 ml) 100 ML 100 MG IV (01:00)
[2021-02-13] MEDS: acetaminophen 325 mg Tablet 650 MG PO (01:15)
[2021-02-13] MEDS: levofloxacin-dextrose 5 % 750 MG/150 ML PREMIX 100 MG IV (02:12)
[2021-02-13] MEDS: heparin 5,000 unit/mL INJ 1 mL 5000 UNIT SUBCUT ×3 (05:01→20:26)
--- NOTE | 2021-02-13 05:54 | PC.NURSE ---
ASSUMING CARE Patient to ICU from ER in 0400 hour. Patient transported via wheelchair on 2L nasal cannula. Patient not requiring oxygen upon transfer to ICU, so patient is currently on RA. Left peritoneal dialysis catheter in place, left forearm AV fistula positive for bruit and thrill. Restricted extremity band placed on left arm. Patient informed nurse that he had instilled his peritoneal antibiotic solution last night before coming to the hospital and that it needs to be drained. Awaiting orders from physician.
[2021-02-13] MEDS: amlodipine 10 mg Tablet PO (06:30)
[2021-02-13] MEDS: allopurinol 100 mg Tablet PO (06:30)
[2021-02-13] MEDS: cholecalciferol (vitamin D3) 1,000 unit Tablet 1000 UNIT PO ×2 (06:30→20:26)
[2021-02-13] MEDS: metoprolol succinate ER (24 HR) 50 mg Tablet 25 MG PO (06:30)
--- NOTE | 2021-02-13 08:02 | PM.CONSULT ---
Providers/Reason For Consult Consulting Physician/Specialty*: taylor wolfe md / telenephrology Reason for Consult*: ESRD care Attending Physician: Rober Krueger Primary Care Provider: Jhony Kaur DO History of Present Illness History of Present Illness Mark Mccabe is a 55 year old male ESRD- recent peritonitis and converted back to HD MWF. [facility]. Pt states he contracted COVID-19 from his last week. PT here w/ fevers, swob, and weakness. Renal called for HD care. Review of Systems General: Reports: 10 or more systems reviewed and unremarkable except in HPI and below Narrative: weak, fevers, sob, cp, abd pain Meds/Allergies Home Medications and Allergies Home Medications Medication Instructions Recorded Confirmed Last Taken Type allopurinol 100 mg tablet 100 mg PO DAILY@0700 01/14/20 01/29/21 11/30/20 History amlodipine 10 mg tablet 10 mg PO DAILY@0700 01/14/20 01/29/21 11/30/20 History cholecalciferol (vitamin D3) 25 25 mcg PO BID@01/14/20 01/29/21 11/30/20 History mcg (1,000 unit) capsule fluticasone propionate 50 2 spray INTRANASAL DAILY 01/14/20 01/29/21 11/30/20 History mcg/actuation nasal spray,suspension morphine 15 mg tablet,extended 15 mg PO Q4H PRN tab 01/14/20 01/29/21 11/30/20 History release ondansetron HCl 4 mg tablet 4 mg PO Q8H PRN 01/14/20 01/29/21 11/30/20 History tamsulosin 0.4 mg capsule 0.4 mg PO DAILY 01/14/20 01/29/21 11/30/20 History Auryxia 2 tab PO BID 02/02/20 01/29/21 11/30/20 History calcium carbonate [Tums] 200 mg PO BID 02/02/20 01/29/21 11/30/20 History megestrol 40 mg PO DAILY@0700 02/02/20 01/29/21 11/30/20 History esomeprazole magnesium 40 mg PO BID@0700,1900 10/27/20 01/29/21 11/30/20 History metoprolol succinate 75 mg PO DAILY@0700 10/27/20 01/29/21 12/01/20 History multivitamin 1 tab PO DAILY #0 11/29/20 01/29/21 11/30/20 History zinc sulfate 50 mg PO DAILY 11/29/20 01/29/21 11/30/20 History torsemide 20 mg PO BID@01/29/21 01/29/21 Unknown History atorvastatin 20 mg PO DAILY #0 tab 01/31/21 01/29/21 Unknown Rx Allergies Allergy/AdvReac Type Severity Reaction Status Date / Time No Known Allergies Allergy Verified 11/21/20 09:07 Current Medications Current Medications Generic Name Dose Route Start Last Admin Trade Name Freq PRN Reason Stop Dose Admin Allopurinol 100 mg 02/13/21 07:00 02/13/21 06:30 Allopurinol 100 Mg Tablet PO 100 mg DAILY@0700 NERY Administration Amlodipine Besylate 10 mg 02/13/21 07:00 02/13/21 06:30 Amlodipine 10 Mg Tablet PO 10 mg DAILY@0700 NERY Administration Heparin Sodium (Beef Lung) 5,000 unit 02/13/21 04:46 02/13/21 05:01 Heparin 5,000 Unit/Ml Inj 1 Ml SUBCUT 5,000 unit Q8H NERY Administration Metoprolol Succinate 25 mg 02/13/21 07:00 02/13/21 06:30 Metoprolol Succinate Er (24 Hr) 50 Mg Tablet PO 25 mg DAILY@0700 NERY Administration Vitamin D 1,000 unit 02/13/21 07:00 02/13/21 06:30 Cholecalciferol (Vitamin D3) 1,000 Unit Tablet PO 1,000 unit BID@ NERY Administration PFSH Acute PFSH: Medical History (Updated 02/13/21 @ 02:13 by Jeff Boswell MD) Avascular necrosis of left humeral head Avascular necrosis of right humeral head Axonal sensorimotor neuropathy Carpal tunnel syndrome, bilateral upper limbs Cervical disc disorder with myelopathy of mid-cervical region ESRD (end stage renal disease) Hereditary and idiopathic neuropathy Hyperlipidemia Hypertension Intervertebral disc disorder with radiculopathy of lumbosacral region Paresthesias Peritonitis associated with peritoneal dialysis Spondylolisthesis, cervical region Surgical History History of arthroscopic knee surgery 3x History of arthroscopy of right shoulder History of carpal tunnel surgery of right wrist Dr. Snider History of cholecystectomy History of umbilical hernia repair Peritoneal dialysis catheter in place Family History Father CAD (coronary artery disease) Mother Arthritis Social History Smoking and tobacco status: former smoker Alcohol intake: never Household members: spouse Marital status: Current occupational status: disabled History of recent travel: No Vitals/I&O/Wt Last Vital Signs Temp 96.9 F L 02/13/21 07:30 Pulse 74 02/13/21 07:30 Resp 14 02/13/21 07:30 BP 134/80 02/13/21 07:30 Pulse Ox 92 02/13/21 07:30 02/12/21 02/13/21 02/13/21 22:59 06:59 14:59 Intake Total 250 / 250 Balance 250 / 250 Weight last 48 hrs Weight 81.647 kg Physical Exam Narrative: EXAM NARRATIVE: As Pt is COVID-19 +- telenephrology cart did not enter room to maintain sterility and prevent spread of COVID-19 exm per RN pt using low dose NC 02 vs noted heent- nc/at, eomi, anicteric neck supple lungs ronchi heart reg, +S! s2 abd soft, nt, nd, +BS ext no edema LUE AVF w/ thrill and bruit neuro- a,a, o x 3 pulses + b/l Data Micro: Micro: Microbiology 02/12/21 23:40 Blood Culture - Pr eliminary Blood SPECIMEN [facility] 02/12/21 22:20 Blood Culture - Pr eliminary Blood SPECIMEN [facility] A&P Additional A&P Information 55 yr old man 1. COVID-19 per medicine- please renal dose all meds for ESRD on HD -ferritin 1143 2. ESRD on HD- HD now- 3 hrs, remove 2l, 3k bath 3. recent peritonitis and fevers- repeat PD cell count, gram stain and cx- follows w/ PD nurse- Rachel Branham telephone [phone] -however PD fluid here 01/30/21- only 94 wbc 4. hgb improved, plts up to 105 5. bnp [id number]- monitor w/ fluid removal Consult Attestations Medical Necessity Statement: per medicine Time Spent in Patient Care: Greater than 35 minutes (>than 50% of time spent in counselling and/or direct pt care on unit). Coding Level of Care Code Acute Business Planning Director for Audrey Almanza
[2021-02-13] MEDS: dexamethasone 4 mg Tablet 6 MG PO (08:31)
[2021-02-13] MEDS: tamsulosin 0.4 mg Capsule PO (08:31)
--- NOTE | 2021-02-13 08:42 | P.PN_ITS ---
Subjective Subjective: Interval history: He states he is doing about okay. He says he is not having diarrhea any further. No vomiting. He is coughing up phlegm. Denies chest pain or pressure. Denies abdominal pain or discomfort. Is going to eat breakfast. States he has completed his vaccine series earlier this year. Vitals/I&O/Wt Last Vital Signs Temp 96.9 F L 02/13/21 07:30 Pulse 74 02/13/21 07:30 Resp 14 02/13/21 07:30 BP 134/80 02/13/21 07:30 Pulse Ox 92 02/13/21 07:30 02/12/21 02/13/21 02/13/21 22:59 06:59 14:59 Intake Total 250 / 250 Balance 250 / 250 Weight last 48 hrs Weight 81.647 kg Physical Exam Const: COMMON NORMALS: no acute distress and patient oriented x3 HENMT: COMMON NORMALS: oropharynx normal Neck/C-Spine: COMMON NORMALS: no JVD Resp: COMMON NORMALS: normal respiratory effort and clear to auscultation bilaterally AUSCULTATION: clear to auscultation bilaterally Cardio: COMMON NORMALS: no JVD, regular rhythm, S1 normal heart sound present, S2 normal heart sound present and No murmurs present (Cardio) RHYTHM: regular rhythm HEART SOUNDS: S1 normal heart sound present and S2 normal heart sound present GI: COMMON NORMALS: Normal to inspection, nondistended, normoactive bowel sounds present, Soft to palpation and non-tender PALPATION: Yes Soft to palpation Extremity: COMMON NORMALS: no joint enlargement and no pedal edema Neuro: COMMON NORMALS: patient oriented x3 and moves all extremities Skin: COMMON NORMALS: no rashes or lesions noted GENERAL SKIN EXAM: no rashes or lesions noted Data : 02/12/21 22:20 02/12/21 22:20 Micro: Microbiology 02/12/21 23:40 Blood Culture - Preliminary Blood SPECIMEN COLLECTED 02/12/21 22:20 Blood Culture - Preliminary Blood SPECIMEN COLLECTED A&P Assessment and plan (1) COVID-19: Severe. Currently requiring 3 L nasal cannula oxygen support. Saturation 92%. Continue decadron. Remdesevir, cautiously given renal failure. Oxygen support. Wean off as tolerating. Follow-up D-dimer, CRP. Status: Acute (2) Hypoxemia: Oxygen support. Treat severe COVID-19 as above. Status: Acute (3) ESRD on hemodialysis: Had transition to HD due to peritonitis, and the peritoneal dialysis. Continue hemodialysis. Appreciate nephrology recommendations. Status: Acute (4) Sepsis: Secondary to severe COVID-19 infection as above. Status: Acute Additional A&P Information Recent peritonitis: Completing antibiotic course, last antibiotic infusion is inside his abdomen currently to to be drained today. Appreciate nephrology recommendations regarding repeat peritoneal fluid studies. Attestations Medical Necessity Statement*: Continue admission for cyst management of severe COVID-19 infection, hypoxic respiratory failure. Coding Level of Care Code Acute Airdrop Systems Technician for [facility] Fwd Exam Comprehensive Diagnoses COVID-19 U07.1 Hypoxemia R09.02 ESRD on hemodialysis N18.6; Z99.2 Sepsis A41.9
[2021-02-13 09:33] LABS: Hepatitis B Surface AB 33.2 (11.5-1000); Hepatitis B Surface Antigen Non-Reactive (Nonreactive); Hepatitis C Virus Antibody Non-Reactive (Nonreactive)
[2021-02-13] MEDS: acetaminophen 325 mg Tablet PO (10:52)
[2021-02-13 11:25] LABS: Glucose Point of Care 205 mg/dL (70-110)
--- NOTE | 2021-02-13 11:55 | PC.CHAP ---
Pastoral Care Encounter/Spiritual Assessment Type of Contact [] Declined motor adjuster visit [] Patient/Family/Request visit [] Outpatient visit [x] Follow-up visit [] Physician referral [] Code/Alert [] Routine visit [] Staff referral [] Actively dying [] Patient sleeping [] Family support [] [] Out of room [] Palliative care [] [] Receiving care in room [] Pre-surgical visit [] Trauma [] Long length of stay [] ICU visit [] Other: Relational/Emotional Strength [] Patient feels connected with others/family/visitors/staff [] Distress [] Loneliness/isolation [] Abandonment Spirituality of Patient [] Person of Lashawn [] Attends Sikh of their Lashawn [] Believes in Prayer [] Reads Bible or Rastafari materials [] There are Spiritual issues to be addressed Collar Padder Blindstitch Interventions [] Prayer [] Active listening [] Non-anxious presence [] Spiritual/emotional support [] Crisis/trauma care [] Spiritual counseling [] Bereavement support [] Provided bereavement packet [] Provided Bible/devotional materials [] Provided toy/stuffed animal, coloring book to patient or family member [] Provided Communion [] Anointing/[place] [] Salvation [] Completed spiritual assessment [] Other: Impact on Illness or Injury [] Angry [] Fearful [] Anxious [] Often cries [] Exhaustion [] Unable to work [] Unable to attend episcopal [] Unable to walk/stand [] Unable to read [] Unable to drive [] Unable to eat/drink [] Unable to sleep [] Unable to be with family [] Patient intubated [] Other: Summary Time spent with patient
[2021-02-13 12:18] LABS: Appearance, Peritoneal Fluid Clear (Clear); Color, Peritoneal Fluid Colorless (Pale Yellow)
[2021-02-13 12:22] LABS: Mononuclear #, Pertinoneal Fl 0.042 10^3/uL; Polynuclear # Cells, Perit 0.003 10^3/uL
[2021-02-13 12:27] LABS: RBC Pertioneal Fluid 0 10^3/uL; WBC Peritoneal Fluid 45 /uL
--- NOTE | 2021-02-13 18:38 | PC.NURSE ---
Patient has been sitting up in bed this shift on room air. No complains of shortness of breath but has complained of a headache. PRN medication was given. Patient stated that he instilled fluid in the peritoneal cavity and did not drain so Dr. Tinajero gave verbal order to drain fluid before instilling. 2,550mL of clear, pale yellow fluid was drained. Beginning weight of new bag was 2,000 grams and dwelled for 6 hours per orders. Ending weight of fluid was 2,560 grams. Patient tolerated well.
[2021-02-14] VITALS (24 sets, daily range): BP systolic 106–142; BP diastolic 67–92; PULSE 63–84; RESP 12–25; TEMP 36.6–36.8; O2SAT 92–98
[2021-02-14] MEDS: heparin 5,000 unit/mL INJ 1 mL 5000 UNIT SUBCUT (05:05)
[2021-02-14 05:06] LABS: Basophils % 0.1 %; Eosinophils # 0.3 10^3/uL (0.0-0.8); Eosinophils % 3.5 %; Hematocrit 31.7 % (42.0-52.0); Hemoglobin 10.4 g/dL (11.7-16.6); Lymphocytes # 1.6 10^3/uL (0.8-4.8); Lymphocytes % 19.4 %; Mean Corpuscular HGB Conc 32.8 g/dL (30.0-36.0); Mean Corpuscular Hemoglobin 28.3 pg (28.0-34.0); Mean Corpuscular Volume 86.4 fL (80-94); Mean Platelet Volume 12.6 fL (7.4-10.4); Monocytes # 0.5 10^3/uL (0.2-0.9); Monocytes % 5.6 %; Neutrophils # 5.77 10^3/uL (1.8-7.7); Neutrophils % 71.2 %; Nucleated Red Blood Cells % 0 %; Platelet Count 132 10^3/cmm (130-400); Red Blood Count 3.67 10^6/uL (4.1-5.3); Red Cell Distribution Width 14.2 % (12.1-15.1); White Blood Count 8.1 10^3/uL (4.0-10.0)
[2021-02-14 05:22] LABS: D Dimer 0.55 ug/mIFEU (0-0.59)
[2021-02-14 05:26] LABS: Alanine Aminotransferase 26 U/L (0-41); Albumin Level 2.9 g/dL (3.5-5.2); Alkaline Phosphatase 113 IU/L (40-130); Anion Gap 17.3 (5-19); Aspartate Amino Transferase 34 U/L (0-40); Blood Urea Nitrogen 25 mg/dL (6-20); C Reactive Protein 57.2 mg/L (0.0-4.9); Calcium 8.8 mg/dL (8.5-10.5); Carbon Dioxide 28 mmol/L (22-29); Chloride 89 mmol/L (98-107); Creatine Phosphokinase 13 U/L (39-308); Globulin 3.4 g/dL (1.3-4.6); Glucose 110 mg/dL (65-115); Magnesium 1.9 mg/dL (1.7-2.3); Osmolality Calculated 275 mOsm/kg (285-295); Potassium 4.3 mmol/L (3.5-5.1); Sodium 130 mmol/L (136-145); Total Bilirubin 0.2 mg/dL (0.15-1.2); Total Protein 6.3 g/dL (6.6-8.7)
[2021-02-14] MEDS: remdesivir 100 MG in sodium chloride 0.9% (100 ml) 100 ML IV (05:27)
[2021-02-14 05:31] LABS: Procalcitonin 0.96 ng/mL (0-0.5)
[2021-02-14 05:44] LABS: Lactate Dehydrogenase 203 U/L (135-225); Phosphorus 5.3 mg/dL (2.5-4.5)
[2021-02-14] MEDS: allopurinol 100 mg Tablet PO (06:03)
[2021-02-14] MEDS: amlodipine 10 mg Tablet PO (06:03)
[2021-02-14] MEDS: cholecalciferol (vitamin D3) 1,000 unit Tablet 1000 UNIT PO (06:03)
[2021-02-14] MEDS: metoprolol succinate ER (24 HR) 50 mg Tablet 25 MG PO (06:04)
[2021-02-14 07:46] LABS: Ferritin 1162 ng/mL (30-400)
--- NOTE | 2021-02-14 08:00 | P.PN_ITS ---
Subjective Subjective: Interval history: ROS obtained by RN as cart did not enter room to perserve sterility as pt has COVID-19. no n/v/f/c/marshall/d/sob Vitals/I&O/Wt Last Vital Signs Temp 98.3 F 02/14/21 04:00 Pulse 66 02/14/21 07:30 Resp 17 02/14/21 07:30 BP 128/80 02/14/21 07:30 Pulse Ox 97 02/14/21 07:30 02/13/21 02/14/21 02/14/21 22:59 06:59 14:59 Intake Total 238 / 2720 Output Total 560 / 3110 Balance -322 / -390 Weight last 48 hrs Weight 58.831 kg Weight 79.6 kg Weight 80.6 kg Weight 81.647 kg Physical Exam Narrative: EXAM NARRATIVE: As Pt is COVID-19 +- telenephrology cart did not enter room to maintain sterility and prevent spread of COVID-19 exm per RN pt on RA vs noted heent- nc/at, eomi, anicteric neck supple lungs - good air movement b/l heart reg, +S1, S2 abd soft, nt, nd, +BS ext no edema LUE AVF w/ thrill and bruit neuro- a,a, o x 3 pulses + b/l Data : 02/14/21 04:26 02/14/21 04:26 Micro: Microbiology 02/12/21 23:40 Blood Culture - Preliminary Blood NEGATIVE TO DATE 02/12/21 22:20 Blood Culture - Preliminary Blood NEGATIVE TO DATE 02/13/21 09:45 Gram Stain - Final Peritoneal Fluid A&P Additional A&P Information 55 yr old man 1. COVID-19 per medicine- please renal dose all meds for ESRD on HD -ferritin 1162 2. ESRD on HD- HD in am- 3 hrs, remove 2l, 2k bath 3. recent peritonitis improved- repeat PD cell count 45, gram stain and cx- negative -I discussed w/ PD nurse- Rachel Branham telephone [phone] -pt to do one PD exchange a day- cont on HD -today is last day of fortaz w/ 6 hr dwell. tomorrow can do a 4 hr exchange 4. hgb stable - plts continue to improve 5. bnp [id number]- monitor w/ fluid removal 6. hyponatremia- monitor w/ HD 7. phos binder seen by RN- telehealth visit time spent 30 minutes Attestations Medical Necessity Statement*: per medicine Time Spent in Patient Care: 16 - 35 minutes Coding Level of Care Code Acute Software Analyst for Audrey Almanza
[2021-02-14] MEDS: dexamethasone 4 mg Tablet 6 MG PO (08:19)
[2021-02-14] MEDS: tamsulosin 0.4 mg Capsule PO (08:19)
--- NOTE | 2021-02-14 08:38 | P.DS_ITS ---
Discharge Providers Date of Admission: 02/13/21 00:27 Date of Discharge: February 14, 2021 Attending Provider at Admission: Jeff Boswell MD Attending Provider at Discharge: Rober Krueger Primary Care Provider: Jhony Kaur DO Diagnoses at Discharge Discharge Diagnosis (1) COVID-19: Status: Acute (2) Hypoxemia: Status: Acute (3) ESRD on hemodialysis: Status: Acute (4) Sepsis: Status: Acute Reason for Visit Reason for Visit: COVID POSITIVE Hospital Course Hospital Course Very pleasant 55-year-old gentleman with ESRD, recently transitioned to hemodialysis due to ineffective peritoneal dialysis alone, as well as peritonitis for which has been receiving intraperitoneal antibiotic infusions with Fortaz, still continues with peritoneal exchanges, contracted COVID-19 pneumonia on from his , and was admitted due to worsening shortness of breath, confusion, and found to be hypoxic, requiring oxygen support. Noted low-grade fever 100.5 Fahrenheit. At home temperature as high as 101. Confused, lethargic. Also noted diarrhea. Admitted for treatment of sepsis due to severe COVID-19 infection. Received oxygen support, treated with remdesivir, Decadron while in the hospital. He had reported he completed vaccination series earlier this year. And so perhaps due to this had shown dramatic improvement with resolution of sepsis, and last night overnight also resolution of hypoxia. He has no further diarrhea, nausea or vomiting. Tolerating diet well. States he feels great and wants to return home. He has been assessed by home oxygen evaluation and does not qualify for oxygen. As he is improved quite significantly he will be cautiously discharged home, however, is cautioned regarding sometimes fluctuating course of illness with COVID-19, and states he will be vigilant in case of any worsening of symptoms and seek medical attention again. Peritoneal fluid cell count was repeated during this hospitalization with noted continuously decreasing WBC at 45 WBCs during the current assessment. As per nephrology today would be a last infusion of Fortaz and 6-hour dwell time. He would then continue with 1 a day peritoneal exchanges alongside MWF hemodialysis. Physical Exam Const: COMMON NORMALS: no acute distress and patient oriented x3 HENMT: COMMON NORMALS: oropharynx normal Neck/C-Spine: COMMON NORMALS: no JVD Resp: COMMON NORMALS: normal respiratory effort and clear to auscultation bilaterally AUSCULTATION: clear to auscultation bilaterally Cardio: COMMON NORMALS: no JVD, regular rhythm, S1 normal heart sound present, S2 normal heart sound present and No murmurs present (Cardio) RHYTHM: regular rhythm HEART SOUNDS: S1 normal heart sound present and S2 normal heart sound present GI: COMMON NORMALS: Normal to inspection, nondistended, normoactive bowel sounds present, Soft to palpation and non-tender PALPATION: Yes Soft to palpation Extremity: COMMON NORMALS: no joint enlargement and no pedal edema Neuro: COMMON NORMALS: patient oriented x3 and moves all extremities Skin: COMMON NORMALS: no rashes or lesions noted GENERAL SKIN EXAM: no rashes or lesions noted Discharge Data Data Completed and Pending: Completed Studies During Hospitalization Category Date Time Status XR chest 1V miguelangel ble [id number] Stat Exams 02/12/21 21:49 Completed Pending at discharge Category Date Time Status Blood Culture Sta t Lab 02/12/21 23:40 Results Body Fluid Cultur e & GS Stat Lab 02/13/21 09:45 Results Complete Blood Co unt w/Auto AM LABS Lab 02/15/21 04:00 Ordered Complete Blood Co unt w/Auto AM LABS Lab 02/16/21 04:00 Ordered Complete Blood Co unt w/Auto AM LABS Lab 02/17/21 04:00 Ordered Comprehensive Met abolic Panel AM LA BS Lab 02/15/21 04:00 Ordered Comprehensive Met abolic Panel AM LA BS Lab 02/16/21 04:00 Ordered Comprehensive Met abolic Panel AM LA BS Lab 02/17/21 04:00 Ordered Magnesium AM LABS Lab 02/15/21 04:00 Ordered Magnesium AM LABS Lab 02/16/21 04:00 Ordered Magnesium AM LABS Lab 02/17/21 04:00 Ordered Phosphorus AM LAB S Lab 02/15/21 04:00 Ordered Phosphorus AM LAB S Lab 02/16/21 04:00 Ordered Uric Acid AM LABS Lab 02/15/21 04:00 Ordered Labs from last 24 hours 02/14/21 02/14/21 02/14/21 04:26 04:26 04:26 WBC RBC Hgb Hct MCV MCH MCHC RDW Plt Count MPV Neut % (Auto) Lymph % (Auto) [place] % (Auto) Eos % (Auto) Baso % (Auto) Neut # (Auto) Lymph # (Auto) [place] # (Auto) Eos # (Auto) Baso # (Auto) Nucleated RBC % (a uto) Total Counted Nucleated RBCs # D-Dimer 0.55 Sodium 130 L Potassium 4.3 Chloride 89 L Carbon Dioxide 28 Anion Gap 17.3 BUN 25 H Creatinine 5.9 H* GFR Calculation 10.0 L Glucose 110 POC Glucose Calculated Osmolal ity 275 L Calcium 8.8 Phosphorus 5.3 H Magnesium 1.9 Ferritin 1162 H Total Bilirubin 0.2 AST 34 ALT 26 Alkaline Phosphata se 113 Lactate Dehydrogen ase 203 Creatine Kinase 13 L C-Reactive Protein 57.2 H Total Protein 6.3 L Albumin 2.9 L Globulin 3.4 Procalcitonin 0.96 H Peritoneal Color Peritoneal Appeara nce Peritoneal WBC Peritoneal RBC Periton Mononu # A uto Mononuclear WBCs % Polynuclear WBCs % Perit Polynuc WBCs # Pleural Color Pleural Appearance Pleural WBC Pleural RBC Pleural Other Cell s Pleural Polynuclea r % Pleural Mononuclea r % Hep Bs Antigen Hep Bs Antibody Hepatitis C Antibo dy Path Cons w/Slide 02/14/21 02/13/21 02/13/21 04:26 10:59 09:45 WBC 8.1 RBC 3.67 L Hgb 10.4 L Hct 31.7 L MCV 86.4 MCH 28.3 MCHC 32.8 RDW 14.2 Plt Count 132 MPV 12.6 H Neut % (Auto) 71.2 Lymph % (Auto) 19.4 [place] % (Auto) 5.6 Eos % (Auto) 3.5 Baso % (Auto) 0.1 Neut # (Auto) 5.77 Lymph # (Auto) 1.6 [place] # (Auto) 0.5 Eos # (Auto) 0.3 Baso # (Auto) 0.0 Nucleated RBC % (a uto) 0 Total Counted Cancelled Nucleated RBCs # 0.0 D-Dimer Sodium Potassium Chloride Carbon Dioxide Anion Gap BUN Creatinine GFR Calculation Glucose POC Glucose 205 H Calculated Osmolal ity Calcium Phosphorus Magnesium Ferritin Total Bilirubin AST ALT Alkaline Phosphata se Lactate Dehydrogen ase Creatine Kinase C-Reactive Protein Total Protein Albumin Globulin Procalcitonin Peritoneal Color Colorless Peritoneal Appeara nce Clear Peritoneal WBC 45 Peritoneal RBC 0 Periton Mononu # A uto 0.042 Mononuclear WBCs % 93.400 Polynuclear WBCs % 6.600 Perit Polynuc WBCs # 0.003 Pleural Color Cancelled Pleural Appearance Cancelled Pleural WBC Cancelled Pleural RBC Cancelled Pleural Other Cell s Cancelled Pleural Polynuclea r % Cancelled Pleural Mononuclea r % Cancelled Hep Bs Antigen Hep Bs Antibody Hepatitis C Antibo dy Path Cons w/Slide Cancelled 02/13/21 02:20 WBC RBC Hgb Hct MCV MCH MCHC RDW Plt Count MPV Neut % (Auto) Lymph % (Auto) [place] % (Auto) Eos % (Auto) Baso % (Auto) Neut # (Auto) Lymph # (Auto) [place] # (Auto) Eos # (Auto) Baso # (Auto) Nucleated RBC % (a uto) Total Counted Nucleated RBCs # D-Dimer Sodium Potassium Chloride Carbon Dioxide Anion Gap BUN Creatinine GFR Calculation Glucose POC Glucose Calculated Osmolal ity Calcium Phosphorus Magnesium Ferritin Total Bilirubin AST ALT Alkaline Phosphata se Lactate Dehydrogen ase Creatine Kinase C-Reactive Protein Total Protein Albumin Globulin Procalcitonin Peritoneal Color Peritoneal Appeara nce Peritoneal WBC Peritoneal RBC Periton Mononu # A uto Mononuclear WBCs % Polynuclear WBCs % Perit Polynuc WBCs # Pleural Color Pleural Appearance Pleural WBC Pleural RBC Pleural Other Cell s Pleural Polynuclea r % Pleural Mononuclea r % Hep Bs Antigen Non-reactive Hep Bs Antibody 33.2 Hepatitis C Antibo dy Non-reactive Path Cons w/Slide Vitals: Last Vital Signs Temp 98.3 F 02/14/21 04:00 Pulse 66 02/14/21 07:30 Resp 17 02/14/21 07:30 BP 128/80 02/14/21 07:30 Pulse Ox 98 02/14/21 08:08 Discharge Plan Discharge Patient Disposition: Home Condition: Stable Prescriptions: No Action allopurinol 100 mg tablet 100 mg PO DAILY@07 RF: 0 tamsulosin 0.4 mg capsule 0.4 mg PO DAILY RF: 0 fluticasone propionate 50 mcg/actuation spray,suspension 2 spray INTRANASAL DAILY RF: 0 cholecalciferol (vitamin D3) 25 mcg (1,000 unit) capsule 25 mcg PO BID@ RF: 0 amlodipine 10 mg tablet 10 mg PO DAILY@0700 RF: 0 ondansetron HCl 4 mg tablet 4 mg PO Q8H PRN (Reason: Nausea) RF: 0 multivitamin Tablet 1 tab PO DAILY Qty: 0 RF: 0 zinc sulfate 50 mg zinc (220 mg) Tablet 50 mg PO DAILY RF: 0 atorvastatin 10 mg tablet 10 mg PO DAILY RF: 0 morphine 15 mg tablet 15 mg PO QID PRN (Reason: Pain) RF: 0 tizanidine 2 mg Tablet 2 mg PO DAILY PRN (Reason: Muscle Pain) RF: 0 gabapentin 100 mg Capsule 100 mg PO EVERY OTHER DAY RF: 0 calcium carbonate [Tums] 200 mg calcium (500 mg) Tablet,Chewable 200 mg PO BID RF: 0 megestrol 40 mg Tablet 40 mg PO DAILY@0700 RF: 0 Auryxia 210 mg iron Tablet 1 tab PO BID RF: 0 Hold Instructions: Resume on 02/07/21. metoprolol succinate 50 mg tablet extended release 24 hr 75 mg PO DAILY@0700 RF: 0 esomeprazole magnesium 40 mg capsule,delayed release(DR/EC) 40 mg PO BID@0700,1900 RF: 0 torsemide 20 mg tablet 20 mg PO BID@ RF: 0 Discharge Orders: Discharge Order (Routine); Ordered 02/14/21 Ordered By: Rober Krueger Referrals: Jhony Kaur DO [Primary Care Provider] - 1 week Discharge Activity: Increase activity as tolerated Patient Instructions: Opioid Safety, Pneumonia - Viral Activity Restrictions/Additional Instructions: In case of any worsening of her condition, any worsening shortness of breath, fatigue, chest pain, inability to tolerate food or drink due to vomiting or diarrhea, or other concerning symptoms please seek medical attention without delay. Maintain isolation precautions until February 22, then if 24 hours without fever, any other symptoms of COVID-19 and improving cough (if any), isolation may be discontinued. Continue follow-up with your dialysis and nephrology doctor. Today would be the last day of the intraperitoneal antibiotic. Continue hemodialysis as well as peritoneal dialysis with 1 exchange and date. With 4-hour exchange tomorrow. Discharge Attestations Time Spent in Discharge Care*: greater than 30 min Quality Metrics Clinical Quality Measures During this hospital stay, did patient experience: None Coding Level of Care Code Acute Chg FW [facility] note Exam Comprehensive Diagnoses COVID-19 U07.1 Hypoxemia R09.02 ESRD on hemodialysis N18.6; Z99.2 Sepsis A41.9
--- NOTE | 2021-02-14 10:00 | PC.NURSE ---
PD solution was instilled. Dr. Tinajero gave verbal orders to instill fluid instruct patient to drain six hours after. Patient understood instructions and stated he had drain bags and new caps at home.
--- NOTE | 2021-02-14 10:23 | PC.CHAP ---
Pastoral Care Encounter/Spiritual Assessment Type of Contact [] Declined investment consultant visit [] Patient/Family/Request visit [] Outpatient visit [] Follow-up visit [] Physician referral [] Code/Alert [x] Routine visit [] Staff referral [] Actively dying [] Patient sleeping [] Family support [] [] Out of room [] Palliative care [] [] Receiving care in room [] Pre-surgical visit [] Trauma [] Long length of stay [x] ICU visit [x] Other: quarantined Relational/Emotional Strength [] Patient feels connected with others/family/visitors/staff [] Distress [] Loneliness/isolation [] Abandonment Spirituality of Patient [] Person of Lashawn [] Attends Yazidi of their Lashawn [] Believes in Prayer [] Reads Bible or Anabaptist materials [] There are Spiritual issues to be addressed Tool 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 Set Up Operator Interventions [x] Prayer [] Active listening [] Non-anxious presence [] Spiritual/emotional support [] Crisis/trauma care [] Spiritual counseling [] Bereavement support [] Provided bereavement packet [] Provided Bible/devotional materials [] Provided toy/stuffed animal, coloring book to patient or family member [] Provided Communion [] Anointing/[place] [] Salvation [x] Completed spiritual assessment [] Other: Impact on Illness or Injury [] Angry [] Fearful [] Anxious [] Often cries [] Exhaustion [] Unable to work [] Unable to attend anabaptism [] Unable to walk/stand [] Unable to read [] Unable to drive [] Unable to eat/drink [] Unable to sleep [] Unable to be with family [] Patient intubated [] Other: Summary Time spent with patient
--- NOTE | 2021-02-14 10:46 | PC.NURSE ---
Patient was discharged at 1030 via wheelchair to personal vehicle on room air. All instructions were given and in hand when leaving. Medications were taken out of the pyxis and given to patient along with clothing, glasses and phone.
== END 2021-02-14 10:30 | disposition home or self-care (01) | DRG 871 ==
LOC: ER 22:42 → ICU 02-13 00:27
PROVIDERS: Internal Medicine Nephrology; Admitting Provider Internal Medicine; Emergency Provider Family Medicine; PCP Internal Medicine; Visit Provider Internal Medicine
DX: A41.9 Sepsis, unspecified organism (principal); U07.1 COVID-19; J12.82 Pneumonia due to coronavirus disease 2019; N18.6 End stage renal disease; I12.0 Hypertensive chronic kidney disease with stage 5 chronic kidney disease or end stage renal disease; G99.2 Myelopathy in diseases classified elsewhere; Z99.2 Dependence on renal dialysis; G60.9 Hereditary and idiopathic neuropathy, unspecified; M43.12 Spondylolisthesis, cervical region; E78.5 Hyperlipidemia, unspecified; M54.17 Radiculopathy, lumbosacral region; Z87.891 Personal history of nicotine dependence; R09.02 Hypoxemia; Z79.891 Long term (current) use of opiate analgesic
CPT/HCPCS: 36415; 36416; 36600; 71045; 80053; 80500; 82550; 82728; 82803; 82962; 83605; 83615; 83735; 83880; 84100; 84145; 85025; 85378; 86140; 86706; 86803; 87040; 87070; 87075; 87205; 87340; 89050; 90935; 96365; 96367; 96372; 96375; 99285; J0713; J1100; J1644; J1956; J8540; Q3014

== ENCOUNTER 2021-03-13 08:03 | Outpatient (CLI) | payer MEDICARE, OTHER, SELFPAY ==
--- NOTE | 2021-03-13 08:17 | CT_ITS ---
WS: [id number] CT CHEST TECHNIQUE: Noncontrast CT of the chest with coronal and sagittal reformatted images. CLINICAL INFORMATION: ENCOUNTER FOR SCREENING FOR OTHER VIRAL DISEASES COMPARISON: Radiograph February 12, 2021, CTA June [address] abdomen pelvis October 27, 2020 DLP: 700.[address] scans at [facility] use at least one of these dose optimization techniques: automat ed exposure control; mA and/or kV adjustment per patient size (includes targeted exams where dose is matched to clinical indication); or iterative reconstruction. FINDINGS: Mild chronic emphysematous changes. Trace left pleural effusion. Right lower lobe pulmonary nodule al partha the diaphragm measuring 6.9 mm unchanged from previous. Calcified granuloma right lower lobe. Haz y atelectasis left lower lobe. Subsegmental atelectasis in the lingula. Slight hazy groundglass infil trate right lower lobe medially. Noncalcified nodule left upper lobe measuring 3 mm. Tiny noncalcifie d 2 mm nodule right upper lobe. Cardiomegaly. No mediastinal or hilar lymphadenopathy. No axillary lymphadenopathy. Cholecystectomy c lips. Perihepatic and perisplenic ascites. Normal thoracic spine. CT/CT chest wo con [id number] IMPRESSION: 1. Mild chronic emphysematous changes. 2. Volume loss left lower lobe with a tiny left pleural effusion. Slight hazy groundglass infiltrates with subsegmental atelectasis in the lingula and left l ower lobe. Recommend correlation for pneumonia. 3. Tiny amount of hazy groundglass infiltrate right lower lobe medially. 4. No focal consolidation. 5. Stable 6.9 mm noncalcified pulmonary nodule right lower lobe along the diap hragm. Recommend 12 month follow-up. 6. Prior cholecystectomy. 7. Stable cardiomegaly. 8. Small amount of perihepatic and perisplenic ascites.
== END 2021-03-13 08:04 | disposition home or self-care (01) ==
PROVIDERS: PCP Internal Medicine; Visit Provider Internal Medicine Nephrology
DX: Z11.59 Encounter for screening for other viral diseases (principal); R18.8 Other ascites; I51.7 Cardiomegaly; Z90.49 Acquired absence of other specified parts of digestive tract; R91.1 Solitary pulmonary nodule; J90 Pleural effusion, not elsewhere classified
CPT/HCPCS: 71250

== ENCOUNTER 2021-05-02 09:28 | Outpatient (CLI) | payer MEDICARE, SELFPAY ==
--- NOTE | 2021-05-02 10:15 | MR_ITS ---
WS: [id number] MRI THORACIC SPINE without contrast. HISTORY: THORACIC SPINE PAIN COMPARISON: 04/01/2020 TECHNIQUE: Multiplanar sequences are performed in sagittal and axial planes. This study is limited due to motion artifact on all sequences. Posterior alignment does appear to be normal. There is osteopenia. No acute fracture or marrow edema. STIR sequences essentially nondiagnos tic. T1-2: Normal. T2-3: Bilateral paracentral disc protrusions, RIGHT greater than LEFT. Near contact on the RIGHT lat eral thecal sac. Mild foraminal narrowing. T3-4: Mild RIGHT facet arthritis. No stenosis. T4-5: Normal. T5-6: Very small RIGHT paracentral osteophyte. No stenosis. T6-7: Mild vertebral body osteophytosis. No stenosis. T7-8: Normal. T8-9: Osteophytes or disc protrusions. Mild contact on the RIGHT lateral thecal sac. T9-10: Bilateral paracentral disc protrusions with mild deformity the ventral thecal sac. Mild centr al and bilateral foraminal stenosis due to facet arthritis. T10-11: Facet joint arthritis with mild foraminal narrowing. T11-12: Normal. Paravertebral soft tissues are negative. MR/MR thoracic spin wo con* [id number] IMPRESSION: 1. Quality of this examination is significantly limited by motion. 2. No high-grade central stenosis. 3. As compared to the prior study from 04/01/2020 the small osteophytes and L2 l evel disc protrusions and facet arthritis appears similar. Again noted are the paracentral disc protrusions at T9-10 causing mild central and foraminal stenos is. 4. Mild disc or osteophyte contact on the RIGHT lateral thecal sac at T8-9 is stable.
== END 2021-05-02 09:29 | disposition home or self-care (01) ==
LOC: RADWPI 09:30
PROVIDERS: PCP Internal Medicine; Visit Provider Anesthesiology Pain Medicine
DX: M51.24 Other intervertebral disc displacement, thoracic region (principal)
CPT/HCPCS: 72146

== ENCOUNTER 2021-05-10 08:37 | Outpatient (CLI) | payer MEDICARE, OTHER, SELFPAY ==
--- NOTE | 2021-05-10 08:51 | CT_ITS ---
WS: [id number] CT RIGHT SHOULDER, NONCONTRAST. 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 DLP: 1829.68 mGy.cm COMPARISON: Radiograph 11/21/2020 Markedly high riding humeral head abutting the undersurface of the acromion with acromial remodeling. Glenoid is vertical. Osteophytic ridging around the humeral head. There are multiple cystic areas ar ound the humeral head with loss of the normal contour. There are several small fragmentations of bone at the humeral head. There is a single 6 mm fragment near the superior glenohumeral joint which may be a loose body. Severe atrophy of the supraspinatus and infraspinatus muscles. Moderate narrowing of the glenohumeral joint. 5 mm nodule in the central RIGHT lung probably within the upper lobe adjacent to the fissure. There is an additional 5 mm partially calcified nodule more anterior in the RIGHT upper lobe. These nodules have been stable since 07/18/2018. CT/CT shoulder RT wo con* [id number] IMPRESSION: 1. Severely high riding RIGHT humeral head with remodeling of the acromion and glenoid. 2. Loss of the normal cortex of the humeral head with fragmentation and madi us subcortical cystic changes. 3. Severe atrophy infraspinatus and supraspinatus muscles.
--- NOTE | 2021-05-10 08:53 | CT_ITS ---
WS: [id number] CT CHEST WITH INTRAVENOUS CONTRAST HISTORY: CHEST PAIN TECHNIQUE: Contiguous 5 mm axial imaging performed on the thorax. Coronal and sagittal reformats are submitted. All CT scans at [facility] use at least one of these dose optimization techniques: automated exposure control; mA and/or kV adjustment per patient size (includes targeted exams where dose is matched to clinical indication); or iterative reconstruction. CONTRAST: Omnipaque 300; 95 mL IV. DLP: 583.02 mGy.cm COMPARISON: 03/13/2021 and 07/18/2018 Lungs and central airway: Lung volumes are decreased. Subsegmental atelectasis in the lingula. Additi onal subsegmental atelectasis in the LEFT lower lobe. There are several small micronodules throughout both lungs. These remain stable since 2018. Recently described 6 mm nodule at the RIGHT diaphragmati c surface was also been present since 2018. Pleura: Normal. No pleural effusion. Heart and pericardium: Marked enlargement of the heart. Similar to the prior studies. There is a smal l circumferential pericardial effusion. Mediastinum and cooper: Numerous mediastinal and hilar lymph nodes. These lymph nodes have slightly inc reased in size and number since 03/13/2021. Largest lymph node in the paraaortic region is 8 mm. There has been an increase in size and number of the aortic and prevascular lymph nodes. Small RIGHT parat shelby lymph nodes. RIGHT hilar lymph node measures 17 mm. Smaller lymph nodes at the LEFT hilum. Vessels: Normal size aorta. Pulmonary arteries prominent measuring 4.2 cm in diameter. Chest wall and lower neck: No soft tissue masses. Upper abdomen: Small amount of ascites surrounding the liver and spleen. Prior cholecystectomy. Ascit es was also present on the study of 03/13/2021. Osseous structures: No destructive process. CT/CT chest w con* [id number] IMPRESSION: 1. Small micronodules throughout both lungs without increase in size since . 2. Subsegmental atelectasis in the lingula and at the LEFT lower lobe. 3. Marked enlargement of the heart with a small pericardial effusion. 4. Pulmonary hypertension. 5. Increase in size and number of the mediastinal and hilar lymph nodes. May a ll be reactive. These lymph nodes are more prominent as compared to 03/13/2021. 6. Ascites noted within the upper abdomen.
[2021-05-10] MEDS: iodixanol 320 mg/mL 100mL Btl IV (09:15)
== END 2021-05-10 08:38 | disposition home or self-care (01) ==
LOC: RAD 08:46
PROVIDERS: PCP Internal Medicine; Visit Provider Nurse Practitioner Family
DX: R07.9 Chest pain, unspecified (principal); J98.11 Atelectasis; I51.7 Cardiomegaly; I27.20 Pulmonary hypertension, unspecified
CPT/HCPCS: 71260; 73200

== ENCOUNTER → 2021-05-15 08:39 | Day surgery (SDC) | payer MEDICARE, OTHER, SELFPAY | PROVIDERS: PCP Internal Medicine; Visit Provider Orthopaedic Surgery | DX: Z01.818 Encounter for other preprocedural examination (principal) | CPT/HCPCS: 93005 ==

== ENCOUNTER → 2021-05-15 10:29 | Outpatient (BNVA) | payer MEDICARE, OTHER, SELFPAY | PROVIDERS: PCP Internal Medicine; Visit Provider Orthopaedic Surgery | DX: Z01.812 Encounter for preprocedural laboratory examination (principal); Z20.822 Contact with and (suspected) exposure to COVID-19 | CPT/HCPCS: 87635 ==

== ENCOUNTER 2021-07-27 09:47 | Outpatient (CLI) | payer MEDICARE, OTHER, SELFPAY ==
--- NOTE | 2021-07-27 09:54 | CT_ITS ---
WS: [id number] CT NECK WITHOUT CONTRAST. HISTORY: PAIN IN THROAT, OTHER DYSPHAGIA TECHNIQUE: Contiguous 5 mm axial images are performed through the neck without intravenous contrast. Sagittal and coronal reformats are also submitted. All CT scans at [facility] use at least on e of these dose optimization techniques: automated exposure control; mA and/or kV adjustment per heather ent size (includes targeted exams where dose is matched to clinical indication); or iterative reconst ruction. CONTRAST: CONTRAST: None DLP: 1123.03 mGy-cm. COMPARISON: 05/20/2017 No abnormality is noted within the oral pharynx, nasopharynx, hypopharynx or larynx. Very similar brian earance as compared to 05/20/2017. The very minimal asymmetry noted on the RIGHT at the level of the v ocal cords is similar to prior studies. The parapharyngeal fat is normal. No abnormality at the tongu e base. Thyroid gland and salivary glands are normally enhancing with no masses. Small benign cervical chain lymph nodes. No adenopathy identified. Minimal spondylitic changes in the mid cervical spine. Visualized portions of the skull base demonstrate no abnormalities. Orbits and globes are within norm al limits. No soft tissue masses. Visualized paranasal sinuses and mastoid air cells are normal. Lung apices are clear. CT/CT neck con [id number] IMPRESSION: Unremarkable unenhanced neck CT. No suspicious masses or adenopathy.
--- NOTE | 2021-07-27 09:54 | FL_ITS ---
WS: [id number] ESOPHAGRAM WITH FLUOROSCOPY HISTORY: PAIN IN THROAT, OTHER DYSPHAGIA COMPARISON: 05/20/2017 FLUOROSCOPY TIME: 1.3 minutes. Esophagus and swallowing function: Patient swallowed the barium mixture without difficulty. No strict ures or mucosal abnormalities are identified. No esophageal narrowing. Barium tablet was also swallowed without difficulty. There was mild pharynge al coating with barium after swallowing. No aspiration was noted. No cricopharyngeal spasm. Gastroesophageal reflux: No reflux noted today. Hiatal hernia: No hiatal hernia. FL/FL barium swallow [id number] IMPRESSION: 1. No aspiration or mucosal strictures. 2. Barium tablet was swallowed without difficulty.
== END 2021-07-27 09:48 | disposition home or self-care (01) ==
PROVIDERS: PCP Internal Medicine; Visit Provider Specialist
DX: R07.0 Pain in throat (principal); R13.19 Other dysphagia
CPT/HCPCS: 70490; 74220

== ENCOUNTER 2021-08-28 15:37 | Emergency (ER) | payer MEDICARE, OTHER, SELFPAY ==
[2021-08-28 16:13] VITALS: BP 117/81; PULSE 66; RESP 20; TEMP 36.7; O2SAT 98; BMI 24.2
--- NOTE | 2021-08-28 16:22 | XRR_ITS ---
PROCEDURE INFORMATION: Exam: XR Chest Exam date and time: 08/28/2021 4:22 PM Age: 56 years old Clinical indication: Pain; Angina pectoris; Additional info: Chest pain TECHNIQUE: Imaging protocol: XR of the chest. Views: 1 view. COMPARISON: CR XR chest 2V* [id number] 05/15/2021 3:32 PM FINDINGS: Lungs: Chronic scarring in the left mid lung. Pleural spaces: Unremarkable. No pleural effusion. No pneumothorax. Heart/Mediastinum: The heart still appears enlarged similar to the prior study. Diaphragm: Chronic elevation of the left diaphragm. Bones/joints: Incidental degenerative changes in the right shoulder. XR/XR chest 1V portable [id number] IMPRESSION: No acute findings.
--- NOTE | 2021-08-28 16:22 | ECG_ITS ---
[facility] Test Date: 2021-08-28 Pat Name: Mark Mccabe Department: Room: Gender: Male Superintendent [place]: : 1965 Requested By: Gisel Benson Order Number: [id number] Mirian MD: Darron Castanon M.D. Measurements Intervals [place] Rate: 65 P: 44 ME: 187 QRS: -44 QRSD: 125 T: 48 QT: 458 QTc: 479 Interpretive Statements SINUS RHYTHM LEFT AXIS DEVIATION [QRS AXIS < -30] POSSIBLE LEFT VENTRICULAR HYPERTROPHY [VOLTAGE CRITERIA PLUS LAE OR QRS WIDENING] NONSPECIFIC ST & T-WAVE ABNORMALITY PROLONGED QT INTERVAL Compared to ECG 08/28/2021 16:22:00 Left-axis deviation now present Prolonged QT interval now present Left anterior fascicular block no longer present T-wave abnormality still present Electronically Signed On 08-28-2021 20:54:32 DEPLOYMENT ENGINEER by Darron Castanon M.D. [email or web address]
--- NOTE | 2021-08-28 16:25 | PC.NURSE ---
ekg done in triage and shown to dr. Benson
[2021-08-28 17:27] LABS: Basophils % 0.3 %; Eosinophils # 0.2 10^3/uL (0.0-0.8); Eosinophils % 6.3 %; Hematocrit 36.2 % (42.0-52.0); Hemoglobin 11.8 g/dL (11.7-16.6); Lymphocytes # 1.1 10^3/uL (0.8-4.8); Lymphocytes % 36.8 %; Mean Corpuscular HGB Conc 32.6 g/dL (30.0-36.0); Mean Corpuscular Hemoglobin 29.1 pg (28.0-34.0); Mean Corpuscular Volume 89.4 fl (80-94); Mean Platelet Volume 11.1 fL (7.4-10.4); Monocytes # 0.2 10^3/uL (0.2-0.9); Monocytes % 7.9 %; Neutrophils # 1.47 10^3/uL (1.8-7.7); Neutrophils % 48.4 %; Nucleated Red Blood Cells % 0 %; Platelet Count 126 10^3/cmm (130-400); Red Blood Count 4.05 10^6/uL (4.1-5.3); Red Cell Distribution Width 14.9 % (12.1-15.1)
[2021-08-28 17:55] LABS: Troponin(5th) Baseline 121 ng/L (0-15)
--- NOTE | 2021-08-28 18:11 | ED_ITS ---
HPI - Chest Pain General: Chief Complaint: Chest Pain Stated Complaint: COUGH, N/V, LOW O2 Time Seen by Provider: 08/28/21 16:59 History of Present Illness: HPI narrative: Mr. Mccabe is a 56-year-old gentleman with complex past medical history including hypertension, hyperlipidemia, history of FSGS with end-stage renal disease, he previously was on hemodialysis though currently is on peritoneal dialysis who presents to the emergency department due to chest pain and generalized symptoms. Symptom onset was 5 days ago. He endorses headache, generalized malaise, body aches, shortness of breath, and cough. He now has chest discomfort associated with the symptoms. He rates moderate intensity generalized symptoms however moderate to severe intensity headache with pain behind his eyes that is sharp. He was seen 4 days ago at [facility] and tested negative for Covid at that time and started on a Augmentin though symptoms continue. Overall the course of symptoms has worsened/persisted. He denies significant abdominal pain. No other specific changes in health, exacerbating, or relieving factors identified. 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 Snider History of cholecystectomy History of umbilical hernia repair Peritoneal dialysis catheter in place Family History Father CAD (coronary artery disease) Mother Arthritis Social History Smoking and tobacco status: never smoked Alcohol intake: never Household members: spouse Marital status: Current occupational status: disabled History of recent travel: No Physical Exam Narrative: EXAM NARRATIVE: GENERAL/CONSTITUTIONAL - mildly ill-appearing. Eyes - no scleral icterus, no conjunctival injection ENMT - Atraumatic external nose and ears. Moist mucous membranes NECK - supple. trachea midline CARDIOVASCULAR - regular rate and rhythm. Normal peripheral perfusion. No peripheral edema. RESPIRATORY - clear to auscultation bilaterally. ABDOMEN/GI - Nontender/Nondistended. MSK - Extremities without obvious deformity or tenderness to palpation SKIN - Warm, Dry NEURO - alert and appropriately oriented. No focal neurologic deficits moves all extremities equally. Course ED course: - Patient was seen and evaluated by me at bedside - Patient placed on cardiac monitors, IV access obtained - Initial evaluation notable for exam as above -Symptom treatment ordered - Labs notable for leukopenia. Mild evidence of dehydration though similar to baseline, evidence of ESRD present. Troponin elevated likely secondary to ESRD, negative delta troponin. Viral studies positive for human metapneumovirus, negative Covid. - Imaging notable for no acute findings on chest x-ray - Upon serial reexamination after treatment the patient was improved - Based on patient history, evaluation, labs, and imaging as interpreted the most likely cause of the patient's condition is viral syndrome secondary to human metapneumovirus. - The results of ED evaluation were discussed with the patient including prescriptions and/or symptomatic cares (if applicable) including appropriate and responsible use, followup plan, and return precautions. The patient verbalized understanding and felt safe for discharge. - Patient discharged in satisfactory condition. Vital Signs: Vital signs: Vital Signs Temperature 98.0 F 08/28/21 16:13 Pulse Rate 73 08/28/21 18:58 Respiratory Rate 20 H 08/28/21 16:13 Blood Pressure 117/81 08/28/21 16:13 Pulse Oximetry 94 08/28/21 18:58 MDM - Chest Pain MDM Narrative: Medical decision making narrative: 56-year-old gentleman with complex past medical history including peritoneal dialysis on transplant list presented with infectious symptoms failing to improve in outpatient setting. Found to have human metapneumovirus which likely explains symptoms and failure to improve with antibiotics. Improved with symptom treatment. Patient is nontoxic and not requiring oxygen. Satisfactory for discharge. Medical Records: Attestation: I reviewed the patient's medical records. Lab Data: Attestation: I reviewed the patient's lab results. Labs: Lab Results 08/28/21 08/28/21 08/28/21 17:08 17:08 17:08 WBC 3.0 10^3/uL L 10^ 3/uL (4.0-10.0) RBC 4.05 10^6/uL L 10 ^6/uL (4.1-5.3) Hgb 11.8 g/dL g/dL (11.7-16.6) Hct 36.2 % L % (42.0-52.0) MCV 89.4 fl fl (80-94) MCH 29.1 pg pg (28.0-34.0) MCHC 32.6 g/dL g/dL (30.0-36.0) RDW 14.9 % % (12.1-15.1) Plt Count 126 10^3/cmm L 10 ^3/cmm (130-400) MPV 11.1 fL H fL (7.4-10.4) Neut % (Auto) 48.4 % % Lymph % (Auto) 36.8 % % Howell % (Auto) 7.9 % % Eos % (Auto) 6.3 % % Baso % (Auto) 0.3 % % Neut # (Auto) 1.47 10^3/uL L 10 ^3/uL (1.8-7.7) Lymph # (Auto) 1.1 10^3/uL 10^3/ uL (0.8-4.8) Howell # (Auto) 0.2 10^3/uL 10^3/ uL (0.2-0.9) Eos # (Auto) 0.2 10^3/uL 10^3/ uL (0.0-0.8) Baso # (Auto) 0.0 10^3/uL 10^3/ uL (0.0-0.1) Nucleated RBC % (a uto) 0 % % Nucleated RBCs # 0.0 /100WBC /100W BC Sodium 131 mmol/L L mmol /L (136-145) Potassium 3.6 mmol/L mmol/L (3.5-5.1) Chloride 87 mmol/L L mmol/ L (98-107) Carbon Dioxide 24 mmol/L mmol/L (22-29) Anion Gap 23.6 H (5-19) BUN 37 mg/dL H mg/dL (6-20) Creatinine 10.1 mg/dL H* mg/ dL (0.7-1.2) GFR Calculation 5.4 mL/min L mL/m in (90-130) Glucose 110 mg/dL mg/dL (65-115) Calculated Osmolal ity 281 mOsm/kg L mOs m/kg (285-295) Calcium 8.0 mg/dL L mg/dL (8.5-10.5) Troponin T Baselin e 121 ng/L H* ng/L (0-15) Troponin T [address] [place] Delta Troponin T Coronavirus 229E ( PCR) Human Metapneumovi r PCR Entero/Rhino (PCR) SARS-CoV-2 (PCR) 08/28/21 08/28/21 08/28/21 19:15 19:40 21:06 WBC RBC Hgb Hct MCV MCH MCHC RDW Plt Count MPV Neut % (Auto) Lymph % (Auto) Howell % (Auto) Eos % (Auto) Baso % (Auto) Neut # (Auto) Lymph # (Auto) Howell # (Auto) Eos # (Auto) Baso # (Auto) Nucleated RBC % (a uto) Nucleated RBCs # Sodium Potassium Chloride Carbon Dioxide Anion Gap BUN Creatinine GFR Calculation Glucose Calculated Osmolal ity Calcium Troponin T Baselin e Troponin T [address] [place] 111.3 ng/L H ng/L (0-15) Delta Troponin T -9.7 ABS# L ABS# (0-10) Coronavirus 229E ( PCR) Not detected (NOT DETECT) Human Metapneumovi r PCR Detected A (NOT DETECT) Entero/Rhino (PCR) Not detected (NOT DETECT) SARS-CoV-2 (PCR) Not detected (NOT DETECT) EKG Data^: EKG 1: Attestation: I personally reviewed and interpreted this EKG as follows: EKG interpretation date: 08/28/21 EKG interpretation time: 18:45 Interpretation: Twelve-lead EKG shows a regular rhythm at a rate of 65. DC interval 187, QRS duration 125, QTc 470. Left axis deviation. Interpretation: Sinus rhythm. Left bundle branch block. EKG 2: Attestation: I personally reviewed and interpreted this EKG as follows: EKG interpretation date: 08/28/21 EKG interpretation time: 20:25 Interpretation: Twelve-lead EKG shows a regular rhythm at a rate of 64. DC interval 210, QRS duration 117, QTc 410. Left axis deviation. Interpretation: Sinus rhythm. Interventricular conduction delay. First-degree AV block. Discharge Plan Discharge Patient Disposition: Home Clinical Impression: Infection due to human metapneumovirus (hMPV), Leukopenia, Thrombocytopenia, ESRD (end stage renal disease), Dehydration, Headache Condition: Stable Prescriptions: New ondansetron 4 mg tablet,disintegrating 4 mg PO Q8H PRN (Reason: nausea and vomiting) 4 Days Qty: 12 RF: 0 Tessalon Perles 100 mg capsule 100 mg PO BID PRN (Reason: cough) Qty: 10 RF: 0 No Action allopurinol 100 mg tablet 100 mg PO DAILY RF: 0 tamsulosin 0.4 mg capsule 0.4 mg PO DAILY RF: 0 fluticasone propionate 50 mcg/actuation spray,suspension 1 - 2 spray INTRANASAL DAILY RF: 0 cholecalciferol (vitamin D3) 25 mcg (1,000 unit) capsule 25 mcg PO BID RF: 0 amlodipine 10 mg tablet 10 mg PO DAILY RF: 0 ondansetron HCl 4 mg tablet 4 mg PO Q8H PRN (Reason: Nausea) RF: 0 guaifenesin [Mucinex Fast-Max Chest-Congest] 100 mg/5 mL liquid 200 mg PO Q4H PRN (Reason: cough) Qty: 1000 RF: 2 hydromorphone 4 mg tablet 4 mg PO Q4H PRNRF: 0 magnesium hydroxide 400 mg (170 mg magnesium) tablet,chewable PO RF: 0 famotidine 20 mg tablet 20 mg PO BID RF: 0 multivitamin Tablet 1 tab PO DAILY Qty: 0 RF: 0 zinc sulfate 50 mg zinc (220 mg) Tablet 50 mg PO DAILY RF: 0 atorvastatin 10 mg tablet 10 mg PO DAILY RF: 0 tizanidine 2 mg Tablet 2 mg PO DAILY PRN (Reason: Muscle Pain) RF: 0 gabapentin 100 mg Capsule 100 mg PO EVERY OTHER DAY RF: 0 calcium carbonate [Tums] 200 mg calcium (500 mg) Tablet,Chewable 200 mg PO BID RF: 0 megestrol 40 mg Tablet 40 mg PO DAILY RF: 0 Auryxia 210 mg iron Tablet 1 tab PO 5XD RF: 0 Hold Instructions: Resume on 02/07/21. metoprolol succinate 50 mg tablet extended release 24 hr 75 mg PO DAILY RF: 0 esomeprazole magnesium 40 mg capsule,delayed release(DR/EC) 40 mg PO BID RF: 0 torsemide 20 mg tablet 20 mg PO BID RF: 0 metoprolol succinate 50 mg Tablet Extended Release 24 Hr 37.5 mg PO BEDTIME RF: 0 melatonin 5 mg Tablet 5 mg PO BEDTIME RF: 0 Discharge Orders: Discharge ED (Routine); Ordered 08/28/21 Ordered By: Jatinder Vargas Referrals: Jhony Kaur, [Primary Care Provider] - Discharge Diet: Usual diet Discharge Activity: Increase activity as tolerated Patient Instructions: Dehydration (ED), Acute Nausea and Vomiting (ED), Viral Syndrome (ED), Acute Cough (ED) Activity Restrictions/Additional Instructions: Thank you for visiting the emergency department. You were seen and evaluated for headache, cough, nausea and vomiting. You are found to have a positive human metapneumovirus test, this causes a viral syndrome which likely explains your symptoms. We are pleased that your symptoms improved with treatment. Please follow-up with your primary care provider. Return to the emergency department for worsening symptoms, inability to tolerate oral intake, or anything else that you are concerned about and feel needs emergency department evaluation. Coding Level of Care Code ED Oral Health Therapist for Audrey Almanza
--- NOTE | 2021-08-28 18:22 | ECG_ITS ---
[facility] Test Date: 2021-08-28 Pat Name: Mark Mccabe Department: Room: Gender: Male Clinical Psychologist: : 1965 Requested By: Gisel Benson Order Number: [id number] Vela MD: Darron Castanon M.D. Measurements Intervals [place] Rate: 64 P: 45 MN: 210 QRS: -56 QRSD: 117 T: 70 QT: 401 QTc: 415 Interpretive Statements SINUS RHYTHM WITH FIRST DEGREE AV BLOCK PATTERN CONSISTENT WITH PULMONARY DISEASE LEFT ANTERIOR FASCICULAR BLOCK [QRS AXIS <= -45, QR IN I, RS IN II] VOLTAGE CRITERIA FOR LVH [MEETS CRITERIA IN ONE OF: R(aVL), S(V1), R(V5), R(V5/V6)+S(V1)] POSSIBLE SEPTAL MYOCARDIAL INFARCTION , PROBABLY OLD [30 ms Q WAVE IN V1/V2] Compared to ECG 08/28/2021 18:41:23 First degree AV block now present Left anterior fascicular block now present Myocardial infarct finding now present Left-axis deviation no longer present T-wave abnormality no longer present Prolonged QT interval no longer present Electronically Signed On 08-28-2021 20:58:52 ROLL SCALE WORKER by Darron Castanon M.D. [id number]
[2021-08-28 18:31] LABS: Anion Gap 23.6 (5-19); Blood Urea Nitrogen 37 mg/dL (6-20); Carbon Dioxide 24 mmol/L (22-29); Chloride 87 mmol/L (98-107); Glomerular Filtration Rate 5.4 mL/min (90-130); Glucose 110 mg/dL (65-115); Osmolality Calculated 281 mOsm/kg (285-295); Potassium 3.6 mmol/L (3.5-5.1); Sodium 131 mmol/L (136-145)
[2021-08-28 18:58] VITALS: PULSE 73; O2SAT 94
[2021-08-28] MEDS: sodium chloride 0.9% 500 ML 999 ML IV (19:05)
[2021-08-28] MEDS: ketorolac 30 mg/mL INJ 15 MG IVP (19:05)
[2021-08-28] MEDS: metoclopramide 5 mg/mL SDV 2 mL 10 MG IVP (19:07)
[2021-08-28] MEDS: diphenhydrAMINE 50 mg/mL SDV 1mL 25 MG IVP (19:11)
[2021-08-28 20:20] LABS: Troponin 5 2HR Delta -9.7 ABS# (0-10)
[2021-08-28 20:22] LABS: Troponin 5 2HR 111.3 ng/L (0-15)
[2021-08-28 21:05] LABS: Adenovirus Not Detected (NOT DETECT); Chlamydia Pneumoniae Not Detected (NOT DETECT); Coronavirus 229E,HKU1,NL63,OC4 Not Detected (NOT DETECT); Human Metapneumovirus Detected (NOT DETECT); Human Rhinovirus/Enterovirus Not Detected (NOT DETECT); Influenza A Not Detected (NOT DETECT); Influenza A H1 Not Detected (NOT DETECT); Influenza A H1-2009 Not Detected (NOT DETECT); Influenza A H3 Not Detected (NOT DETECT); Influenza B Not Detected (NOT DETECT); Mycoplasma Pneumoniae Not Detected (NOT DETECT); Parainfluenza Virus Type 1 Not Detected (NOT DETECT); Parainfluenza Virus Type 2 Not Detected (NOT DETECT); Parainfluenza Virus Type 3 Not Detected (NOT DETECT); Parainfluenza Virus Type 4 Not Detected (NOT DETECT); Respiratory Syncytial Virus A Not Detected (NOT DETECT); Respiratory Syncytial Virus B Not Detected (NOT DETECT); SARS-COV-2 Not Detected (NOT DETECT)
[2021-08-28 21:06] LABS: Human Metapneumovirus Detected (NOT DETECT); Human Rhinovirus/Enterovirus Not Detected (NOT DETECT); Results from Genmark
--- NOTE | 2021-08-28 22:22 | ECG_ITS ---
[facility] Test Date: 2021-08-28 Pat Name: Mark Mccabe Department: Room: Gender: Male Credit Or Loans Officer: : 1965 Requested By: Gisel Benson Order Number: [id number] Mirian MD: Darron Castanon M.D. Measurements Intervals [place] Rate: 63 P: 67 [place]: 180 QRS: -69 QRSD: 125 T: 91 QT: 392 QTc: 402 Interpretive Statements SINUS RHYTHM LEFT ANTERIOR FASCICULAR BLOCK [QRS AXIS <= -45, QR IN I, RS IN II] POSSIBLE LEFT VENTRICULAR HYPERTROPHY [VOLTAGE CRITERIA PLUS LAE OR QRS WIDENING] NONSPECIFIC T-WAVE ABNORMALITY Compared to ECG 05/15/2021 08:55:49 T-wave abnormality now present Myocardial infarct finding no longer present Electronically Signed On 08-28-2021 20:57:31 MAPLE SUGAR MAKER by Darron Castanon M.D. [id number]
== END 2021-08-28 21:43 | disposition home or self-care (01) ==
PROVIDERS: Emergency Medicine; Emergency Provider Emergency Medicine; PCP Internal Medicine
DX: D72.819 Decreased white blood cell count, unspecified (principal); B97.81 Human metapneumovirus as the cause of diseases classified elsewhere; D69.6 Thrombocytopenia, unspecified; E86.0 Dehydration; R51.9 Headache, unspecified; I12.0 Hypertensive chronic kidney disease with stage 5 chronic kidney disease or end stage renal disease; N18.6 End stage renal disease; E78.5 Hyperlipidemia, unspecified; Z99.2 Dependence on renal dialysis; Z20.822 Contact with and (suspected) exposure to COVID-19
CPT/HCPCS: 71045; 80048; 84484; 85025; 87635; 87801; 93005; 96374; 96375; 99284; J1200; J1885; J2765; J7040

== ENCOUNTER → 2022-01-05 08:21 | Day surgery (SDC) | payer MEDICARE, OTHER, SELFPAY ==
[2022-01-05 08:36] VITALS: BP 125/73; PULSE 73; RESP 18; TEMP 36.5; O2SAT 100
== END ==
PROVIDERS: PCP Internal Medicine; Visit Provider Internal Medicine
DX: D70.9 Neutropenia, unspecified (principal)
CPT/HCPCS: 96372; J1442

== ENCOUNTER → 2022-01-16 10:31 | Day surgery (SDC) | payer MEDICARE, OTHER, SELFPAY ==
[2022-01-16 10:40] VITALS: BP 119/79; PULSE 74; RESP 18; TEMP 36.2; O2SAT 100; BMI 19.9
== END ==
PROVIDERS: PCP Internal Medicine; Visit Provider Internal Medicine
DX: D72.819 Decreased white blood cell count, unspecified (principal)
CPT/HCPCS: 96372; J1442

== ENCOUNTER 2022-01-30 08:56 | Outpatient (RCR) | payer MEDICARE, OTHER, SELFPAY ==
[2022-01-26 11:00] VITALS: BP 89/63; PULSE 80; RESP 18; TEMP 36.2; O2SAT 100
[2022-01-30 09:05] VITALS: RESP 18
== END 2022-02-22 23:59 | disposition home or self-care (01) ==
LOC: GILAB 08:56
PROVIDERS: PCP Internal Medicine; Visit Provider Student in an Organized Health Care Education/Training Program
DX: D72.819 Decreased white blood cell count, unspecified (principal)
CPT/HCPCS: 96372; J1442

== ENCOUNTER 2022-02-27 07:48 | Outpatient (RCR) | payer MEDICARE, OTHER, SELFPAY ==
[2022-02-23 13:55] VITALS: RESP 18; TEMP 36.7
[2022-02-27 07:55] VITALS: BP 123/92; PULSE 120; RESP 18; TEMP 36.9; O2SAT 98
== END 2022-03-25 23:59 | disposition home or self-care (01) ==
LOC: GILAB 07:48
PROVIDERS: PCP Internal Medicine; Visit Provider Student in an Organized Health Care Education/Training Program
DX: D72.819 Decreased white blood cell count, unspecified (principal)
CPT/HCPCS: 96372; J1442

== ENCOUNTER → 2022-03-09 07:36 | Day surgery (SDC) | payer MEDICARE, OTHER, SELFPAY ==
[2022-03-09] MEDS: diphenhydrAMINE 50 mg Capsule PO (07:50)
[2022-03-09] MEDS: acetaminophen 325 mg Tablet 650 MG PO (07:50)
[2022-03-09 08:16] VITALS: BP 141/92; PULSE 81; RESP 18; TEMP 36.1; O2SAT 100
== END ==
PROVIDERS: PCP Internal Medicine; Visit Provider Internal Medicine
DX: N03.2 Chronic nephritic syndrome with diffuse membranous glomerulonephritis (principal)
CPT/HCPCS: 96365; 96366; 96374; J2930; J7050; J9312; Q0163

== ENCOUNTER 2022-03-20 14:02 | Oncology outpatient (recurring) (ONCR) | payer MEDICARE, OTHER, SELFPAY ==
[2022-03-20 16:04] LABS: Basophils % 0.5 %; Eosinophils % 0.5 %; Hematocrit 26.9 % (42.0-52.0); Hemoglobin 9.1 g/dL (11.7-16.6); Lymphocytes # 0.3 10^3/uL (0.8-4.8); Lymphocytes % 6.8 %; Mean Corpuscular HGB Conc 33.8 g/dL (30.0-36.0); Mean Corpuscular Hemoglobin 31.3 pg (28.0-34.0); Mean Corpuscular Volume 92.4 fl (80-94); Mean Platelet Volume 9.6 fL (7.4-10.4); Monocytes # 0.8 10^3/uL (0.2-0.9); Monocytes % 19.5 %; Neutrophils # 2.62 10^3/uL (1.8-7.7); Neutrophils % 68.3 %; Nucleated Red Blood Cells % 0 %; Platelet Count 309 10^3/cmm (130-400); Red Blood Count 2.91 10^6/uL (4.1-5.3); Red Cell Distribution Width 13.1 % (12.1-15.1); White Blood Count 3.8 10^3/uL (4.0-10.0)
[2022-03-20 16:05] LABS: Reticulocyte % 0.9 % (0.5-2.0)
[2022-03-20 16:22] LABS: LAB Peripheral Smear Sent for Review
[2022-03-20 16:28] LABS: Alanine Aminotransferase 10 U/L (0-41); Albumin Level 3.5 g/dL (3.5-5.2); Alkaline Phosphatase 76 IU/L (40-130); Anion Gap 16.3 (5-19); Aspartate Amino Transferase 18 U/L (0-40); Blood Urea Nitrogen 17 mg/dL (6-20); Calcium 9.4 mg/dL (8.5-10.5); Carbon Dioxide 25 mmol/L (22-29); Chloride 100 mmol/L (98-107); Globulin 2.7 g/dL (1.3-4.6); Glomerular Filtration Rate 48.6 mL/min (90-130); Glucose 119 mg/dL (65-115); Lactate Dehydrogenase 224 U/L (135-225); Osmolality Calculated 287 mOsm/kg (285-295); Potassium 4.3 mmol/L (3.5-5.1); Sodium 137 mmol/L (136-145); Total Bilirubin 0.2 mg/dL (0.15-1.2); Total Protein 6.2 g/dL (6.6-8.7)
[2022-03-20 16:42] LABS: Folate Level 7.7 ng/mL (4.5-32.2)
[2022-03-20 16:43] LABS: Vitamin B12 763 pg/mL (232-1245)
[2022-03-21 06:58] LABS: PROTEIN, TOTAL 5.9 g/dL (6.1-8.1)
[2022-03-21 13:43] LABS: ALBUMIN 3.1 g/dL (3.8-4.8); ALPHA 1 GLOBULIN 0.5 g/dL (0.2-0.3); ALPHA 2 GLOBULIN 0.9 g/dL (0.5-0.9); BETA 1 GLOBULIN 0.4 g/dL (0.4-0.6); BETA 2 GLOBULIN 0.4 g/dL (0.2-0.5); GAMMA GLOBULIN 0.7 g/dL (0.8-1.7)
[2022-03-21 14:28] LABS: KAPPA LIGHT CHAIN, FREE, SERUM 64.7 mg/L (3.3-19.4); KAPPA/LAMBDA LIGHT CHAINS FREE 1.38 (0.26-1.65)
[2022-03-22 22:29] LABS: Copper Level 127 mcg/dL (70-175)
== END 2022-03-20 23:59 | disposition home or self-care (01) ==
PROVIDERS: PCP Internal Medicine; Visit Provider Internal Medicine Medical Oncology
DX: D70.8 Other neutropenia (principal); D64.9 Anemia, unspecified; D84.821 Immunodeficiency due to drugs; Z79.899 Other long term (current) drug therapy; Z94.0 Kidney transplant status
CPT/HCPCS: 36415; 80053; 82525; 82607; 82746; 83010; 83615; 83883; 84155; 84165; 85025; 85045; 99205

== ENCOUNTER 2022-04-04 08:45 | Outpatient (CLI) | payer MEDICARE, OTHER, SELFPAY ==
[2022-04-04 09:12] LABS: Basophils % 0.8 %; Eosinophils # 0.1 10^3/uL (0.0-0.8); Eosinophils % 2.6 %; Hematocrit 28.3 % (42.0-52.0); Lymphocytes # 0.5 10^3/uL (0.8-4.8); Lymphocytes % 11.5 %; Mean Corpuscular HGB Conc 31.8 g/dL (30.0-36.0); Mean Corpuscular Hemoglobin 30.2 pg (28.0-34.0); Mean Platelet Volume 9.8 fL (7.4-10.4); Monocytes # 0.7 10^3/uL (0.2-0.9); Monocytes % 18.7 %; Neutrophils # 2.53 10^3/uL (1.8-7.7); Neutrophils % 64.9 %; Nucleated Red Blood Cells % 0 %; Platelet Count 200 10^3/cmm (130-400); Red Blood Count 2.98 10^6/uL (4.1-5.3); Red Cell Distribution Width 12.8 % (12.1-15.1); White Blood Count 3.9 10^3/uL (4.0-10.0)
== END 2022-04-04 08:46 | disposition home or self-care (01) ==
LOC: LAB 08:48
PROVIDERS: PCP Internal Medicine; Visit Provider Internal Medicine Medical Oncology
DX: D64.9 Anemia, unspecified (principal)
CPT/HCPCS: 36415; 85025

== ENCOUNTER 2022-04-18 13:25 | Oncology outpatient (recurring) (ONCR) | payer MEDICARE, OTHER, SELFPAY ==
[2022-04-18 14:04] LABS: Basophils % 0.8 %; Eosinophils % 1.5 %; Hematocrit 30.3 % (42.0-52.0); Hemoglobin 9.5 g/dL (11.7-16.6); Lymphocytes # 0.7 10^3/uL (0.8-4.8); Lymphocytes % 27.2 %; Mean Corpuscular HGB Conc 31.4 g/dL (30.0-36.0); Mean Corpuscular Hemoglobin 30.1 pg (28.0-34.0); Mean Corpuscular Volume 95.9 fl (80-94); Mean Platelet Volume 9.4 fL (7.4-10.4); Monocytes # 0.3 10^3/uL (0.2-0.9); Monocytes % 10.3 %; Neutrophils # 1.51 10^3/uL (1.8-7.7); Neutrophils % 57.9 %; Nucleated Red Blood Cells % 0 %; Platelet Count 191 10^3/cmm (130-400); Red Blood Count 3.16 10^6/uL (4.1-5.3); White Blood Count 2.6 10^3/uL (4.0-10.0)
[2022-04-18 14:23] LABS: Alanine Aminotransferase < 5 U/L (0-41); Albumin Level 3.6 g/dL (3.5-5.2); Alkaline Phosphatase 54 U/L (40-130); Anion Gap 13.3 (5-19); Aspartate Amino Transferase 13 U/L (0-40); Blood Urea Nitrogen 19 mg/dL (6-20); Calcium 8.9 mg/dL (8.5-10.5); Carbon Dioxide 24 mmol/L (22-29); Chloride 106 mmol/L (98-107); Globulin 1.8 g/dL (1.3-4.6); Glomerular Filtration Rate 45.1 mL/min (90-130); Glucose 147 mg/dL (65-115); Osmolality Calculated 291 mOsm/kg (285-295); Potassium 5.3 mmol/L (3.5-5.1); Sodium 138 mmol/L (136-145); Total Bilirubin 0.3 mg/dL (0.15-1.2); Total Protein 5.4 g/dL (6.6-8.7)
[2022-04-18 14:37] LABS: Iron 36 ug/dL (59-158); Percent Saturation 26.6 % (20-50); Total Iron Binding Capacity 135 mcg/dl; Unsaturated Iron Binding 99 ug/dL (112-347)
[2022-04-18 14:52] LABS: Ferritin 1040 ng/mL (30-400)
== END 2022-04-25 23:59 | disposition home or self-care (01) ==
PROVIDERS: PCP Internal Medicine; Visit Provider Internal Medicine Medical Oncology
DX: D70.9 Neutropenia, unspecified (principal); D64.9 Anemia, unspecified; Z87.891 Personal history of nicotine dependence; Z94.0 Kidney transplant status; D84.821 Immunodeficiency due to drugs
CPT/HCPCS: 80053; 82728; 83540; 83550; 85025; G0463

== ENCOUNTER → 2022-05-18 10:56 | Day surgery (SDC) | payer MEDICARE, OTHER, SELFPAY ==
[2022-05-18 11:13] VITALS: BP 131/88; PULSE 103; RESP 18; TEMP 36.4; O2SAT 97
== END ==
PROVIDERS: PCP Internal Medicine; Visit Provider Internal Medicine
DX: D72.819 Decreased white blood cell count, unspecified (principal)
CPT/HCPCS: 96372; J1442

== ENCOUNTER → 2022-05-22 11:31 | Day surgery (SDC) | payer MEDICARE, OTHER, SELFPAY ==
[2022-05-22 11:45] VITALS: BP 114/75; PULSE 107; RESP 18; TEMP 36.4; O2SAT 99
== END ==
PROVIDERS: PCP Internal Medicine; Visit Provider Internal Medicine
DX: D72.819 Decreased white blood cell count, unspecified (principal)
CPT/HCPCS: 96372; J1442

== ENCOUNTER → 2022-10-17 08:27 | Day surgery (SDC) | payer MEDICARE, OTHER, SELFPAY ==
[2022-10-17 08:40] VITALS: BP 118/76; PULSE 90; RESP 18; TEMP 36.7; O2SAT 99
[2022-10-17] MEDS: filgrastim-sndz 480 mcg/0.8 mL Syringe SUBCUT (08:46)
== END ==
PROVIDERS: PCP Internal Medicine; Visit Provider Internal Medicine
DX: D72.819 Decreased white blood cell count, unspecified (principal)
CPT/HCPCS: 96372; Q5101

== ENCOUNTER → 2022-10-24 08:16 | Day surgery (SDC) | payer MEDICARE, OTHER, SELFPAY ==
[2022-10-24] MEDS: filgrastim-sndz 480 mcg/0.8 mL Syringe SUBCUT (08:27)
[2022-10-24 08:30] VITALS: BP 125/82; PULSE 79; RESP 18; TEMP 36.4; O2SAT 98
== END ==
PROVIDERS: PCP Internal Medicine; Visit Provider Internal Medicine
DX: D72.819 Decreased white blood cell count, unspecified (principal)
CPT/HCPCS: 96372; Q5101

== ENCOUNTER → 2022-11-14 08:44 | Day surgery (SDC) | payer MEDICARE, OTHER, SELFPAY ==
[2022-11-14] MEDS: filgrastim-sndz 480 mcg/0.8 mL Syringe SUBCUT (08:48)
[2022-11-14 08:49] VITALS: BP 139/80; PULSE 97; RESP 18; TEMP 36.3; O2SAT 94
== END ==
PROVIDERS: PCP Internal Medicine; Visit Provider Internal Medicine
DX: D72.819 Decreased white blood cell count, unspecified (principal)
CPT/HCPCS: 96372; Q5101

== ENCOUNTER → 2022-11-21 08:34 | Day surgery (SDC) | payer MEDICARE, OTHER, SELFPAY ==
[2022-11-21] MEDS: filgrastim-sndz 480 mcg/0.8 mL Syringe SUBCUT (08:47)
[2022-11-21 08:49] VITALS: BP 122/83; PULSE 84; RESP 18; TEMP 36.5; O2SAT 99
== END ==
PROVIDERS: PCP Internal Medicine; Visit Provider Internal Medicine
DX: D72.819 Decreased white blood cell count, unspecified (principal)
CPT/HCPCS: 96372; Q5101

== ENCOUNTER → 2022-11-28 08:21 | Day surgery (SDC) | payer MEDICARE, OTHER, SELFPAY ==
[2022-11-28 08:30] VITALS: BP 114/71; PULSE 77; RESP 18; TEMP 36.7; O2SAT 100
[2022-11-28] MEDS: filgrastim-sndz 480 mcg/0.8 mL Syringe SUBCUT (08:39)
== END ==
PROVIDERS: PCP Internal Medicine; Visit Provider Internal Medicine
DX: D72.819 Decreased white blood cell count, unspecified (principal)
CPT/HCPCS: 96372; Q5101

== ENCOUNTER → 2023-01-16 13:43 | Outpatient (BNVA) | payer MEDICARE, OTHER, SELFPAY | PROVIDERS: PCP Internal Medicine; Visit Provider Dermatology | DX: L72.0 Epidermal cyst (principal); Z92.25 Personal history of immunosuppression therapy; L82.1 Other seborrheic keratosis; L81.4 Other melanin hyperpigmentation; L85.3 Xerosis cutis; D69.2 Other nonthrombocytopenic purpura | CPT/HCPCS: 99213 ==

== ENCOUNTER 2023-03-13 13:33 | Emergency (ER) | payer MEDICARE, OTHER, SELFPAY ==
[2023-03-13] VITALS (7 sets, daily range): BP systolic 126–147; BP diastolic 81–93; PULSE 60–105; RESP 18; TEMP 36.7; O2SAT 97–100; BMI 18.8
--- NOTE | 2023-03-13 13:46 | ECG_ITS ---
[facility] Test Date: 2023-03-13 Pat Name: Mark Mccabe Department: Room: Gender: Male Medical Technologist Chemistry: : 1965 Requested By: Franky Lawrence Order Number: [id number] Mirian MD: Darron Castanon M.D. Measurements Intervals [place] Rate: 91 P: 63 [place]: 163 QRS: -48 QRSD: 104 T: 81 QT: 347 QTc: 428 Interpretive Statements SINUS RHYTHM POSSIBLE LEFT ATRIAL ENLARGEMENT [-0.1mV P-WAVE IN V1/V2] PATTERN CONSISTENT WITH PULMONARY DISEASE LEFT ANTERIOR FASCICULAR BLOCK [QRS AXIS <= -45, QR IN I, RS IN II] POSSIBLE LEFT VENTRICULAR HYPERTROPHY [VOLTAGE CRITERIA PLUS LAE OR QRS WIDENING] NONSPECIFIC T-WAVE ABNORMALITY Compared to ECG 08/28/2021 20:19:26 T-wave abnormality now present First degree AV block no longer present Myocardial infarct finding no longer present Electronically Signed On 03-13-2023 21:17:48 CDT by Darron Castanon M.D. [id number]
--- NOTE | 2023-03-13 13:46 | W.ED.SOB ---
HPI - SOB/Dyspnea General: Chief Complaint: Shortness of Breath/Dyspnea Stated Complaint: headache, sob, high bp Time Seen by Provider: 03/13/23 13:36 History of Present Illness: HPI Narrative: Mr. 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 He notes gradual onset of symptoms with headache, elevated blood pressure at home, shortness of breath. Moderate in intensity. Worse with exertion. Denies change in urine output or GI symptoms. No measured fevers. He talked to his transplant team and was referred to the ER for further evaluation and management. He reports compliance with his medication regimen. He takes prednisone, tacro, mycophenolate for immunosuppression. No other specific changes in health, exacerbating, or alleviating factors identified. Onset (ago): day(s) Timing: progressively worsening Severity: moderate Exacerbating factors: nothing Relieving factors: nothing Associated symptoms: Reports other Review of Systems General: Reports: 10 or more systems reviewed and unremarkable except in HPI and below PFSH ED PFSH: Medical History (Updated 03/23/23 @ 11:36 by Jatinder Vargas MD) Avascular necrosis of left humeral head Avascular necrosis of right humeral head Axonal sensorimotor neuropathy Benign prostatic hyperplasia Carpal tunnel syndrome, bilateral upper limbs Degenerative arthritis Degenerative joint disease of spine ESRD (end stage renal disease) Fibromyalgia FSGS (focal segmental glomerulosclerosis), tip variant with nephrosis Gout Hereditary and idiopathic neuropathy History of peritonitis In association with peritoneal dialysis Hyperlipidemia Hypertension 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 therapy Obstructive sleep apnea Peptic ulcer disease Pulmonary hypertension associated with ESRD on dialysis Surgical History (Updated 03/23/23 @ 11:36 by Jatinder Vargas MD) History of arthroscopic knee surgery x 3 History of arthroscopy of right shoulder History of bilateral carpal tunnel release History of cholecystectomy History of esophagogastroduodenoscopy (EGD) less than 1 year History of kidney transplant (09/2021) History of right breast biopsy for benign disease History of thoracotomy with chest tube, for pneumonia History of umbilical hernia repair Hx of colonoscopy less than 1 year, no polyps Family History Father CAD (coronary artery disease) Chronic kidney disease (CKD) Mother Arthritis Other Diabetes Hyperlipidemia Hypertension Denies family history of Clotting disorder Dementia Psychiatric illness Suicide Anesthesia complication Bleeding disorder Lung disease Cancer Stroke Social History Smoking and tobacco status: former smoker (Smoked for 15 years) Alcohol intake: never Substance/Drug Use: never Household members: spouse Marital status: Current occupational status: disabled Physical Exam Const: COMMON NORMALS: alert GENERAL APPEARANCE: cooperative and well developed HENMT: COMMON NORMALS: normocephalic and atraumatic HEAD & SCALP: normocephalic and atraumatic THROAT: posterior oropharynx normal Eye: COMMON NORMALS: conjunctivae normal CONJUNCTIVA: Yes conjunctivae normal SCLERA: sclerae normal Neck/C-Spine: COMMON NORMALS: supple GENERAL: Yes trachea midline Resp: COMMON NORMALS: normal respiratory effort EFFORT & INSPECTION: Yes able to speak in complete sentences Cardio: COMMON NORMALS: regular rate and regular rhythm RATE: regular rate RHYTHM: regular rhythm GI: COMMON NORMALS: Soft to palpation PALPATION: Yes Soft to palpation and No Tenderness to palpation present (GI) PERCUSSION: normal to percussion Extremity: GENERAL: Yes normal exam except as noted and No edema Neuro: COMMON NORMALS: moves all extremities SENSORIUM/ORIENTATION: Yes alert and No Orientation impaired Psych: COMMON NORMALS: mental status grossly normal and Normal thought process present THOUGHT PROCESS: Normal thought process present Course Vital Signs: Vital signs: Vital Signs Temperature 98.0 F 03/13/23 13:36 Pulse Rate 77 03/13/23 19:06 Respiratory Rate 18 03/13/23 16:56 Blood Pressure 128/93 03/13/23 19:06 Pulse Oximetry 98 03/13/23 19:06 Oxygen Delivery Me thod Room Air 03/13/23 18:30 MDM - SOB/Dyspnea Medical Decision Making 57-year-old gentleman with history of renal transplant presenting to the emergency department for generalized illness with concern over blood pressure changes. Exam as above. Nontoxic in appearance. EKG demonstrates sinus rhythm with left axis deviation. Intervals are normal. Nonspecific ST segment abnormalities are present. No STEMI. Labs with no leukocytosis, near baseline normocytic anemia, normal platelet count. Metabolic panel with mild hyperkalemia and decreased bicarb. Creatinine appears baseline. Magnesium is low. Negative range 2-hour delta troponin. BNP is mildly elevated though patient is not grossly volume overloaded on clinical exam. 2+ protein without evidence of UTI or other significant abnormality on urinalysis. ABG confirms acidemia. Chest x-ray with no lobar consolidation or pneumothorax. Patient treated with IV fluids, analgesia, magnesium replenishment and feels somewhat improved. I discussed the case with nephrology at [facility] in [place]. Patient is appropriate for outpatient management. In addition to fluids they recommended bicarbonate administration which was ordered. We will also initiate oral sodium bicarbonate. Patient is comfortable with plan to call clinic in the morning. The results of ED evaluation were discussed with the patient including prescriptions and/or symptomatic cares (if applicable) including appropriate and responsible use, followup plan, and return precautions. The patient verbalized understanding and felt safe for discharge. Medical Records I reviewed the patient's medical records. Lab Data I reviewed the patient's lab results. 03/13/23 14:07 03/13/23 16:50 Labs/Radiology: Radiology Impressions Chest X-Ray 03/13/23 13:55 IMPRESSION: 1. No acute cardiopulmonary finding. Laboratory Results WBC 5.9 10^3/uL (4.0-10.0) 03/13/23 14:07 RBC 3.69 10^6/uL (4.1-5.3) L 03/13/23 14:07 Hgb 10.2 g/dL (11.7-16.6) L 03/13/23 14:07 Hct 32.6 % (42.0-52.0) L 03/13/23 14:07 MCV 88.3 fl (80-94) 03/13/23 14:07 MCH 27.6 pg (28.0-34.0) L 03/13/23 14:07 MCHC 31.3 g/dL (30.0-36.0) 03/13/23 14:07 RDW 15.8 % (12.1-15.1) H 03/13/23 14:07 Plt Count 232 10^3/cmm (130-400) 03/13/23 14:07 MPV 10.3 fL (7.4-10.4) 03/13/23 14:07 Neut % (Auto) 80.7 % 03/13/23 14:07 Lymph % (Auto) 7.7 % 03/13/23 14:07 War[place] % (Auto) 10.1 % 03/13/23 14:07 Eos % (Auto) 0.2 % 03/13/23 14:07 Baso % (Auto) 0.0 % 03/13/23 14:07 Neut # (Auto) 4.79 10^3/uL (1.8-7.7) 03/13/23 14:07 Lymph # (Auto) 0.5 10^3/uL (0.8-4.8) L 03/13/23 14:07 [place] # (Auto) 0.6 10^3/uL (0.2-0.9) 03/13/23 14:07 Eos # (Auto) 0.0 10^3/uL (0.0-0.8) 03/13/23 14:07 Baso # (Auto) 0.0 10^3/uL (0.0-0.1) 03/13/23 14:07 Nucleated RBC % (auto) 0 % 03/13/23 14:07 Nucleated RBCs # 0.0 /100WBC 03/13/23 14:07 Specimen Type Arterial 03/13/23 18:15 Sample Site Radial, right 03/13/23 18:15 ABG pH 7.26 (7.35-7.45) L 03/13/23 18:15 ABG pCO2 24.7 mmHg (35-45) L 03/13/23 18:15 ABG pO2 112.0 mmHg (80.0-100.0) H 03/13/23 18:15 ABG HCO3 11.1 mmol/L (22-26) L 03/13/23 18:15 ABG Base Excess -14.5 mmol/L (-2.0-2.0) L 03/13/23 18:15 Benji Test Pos 03/13/23 18:15 Hematocrit 30.4 % (42-52) L 03/13/23 18:15 O2 Delivery Device Room air 03/13/23 18:15 Knot Borer ID Gd 03/13/23 18:15 Sodium 137 mmol/L (136-145) 03/13/23 16:50 Potassium 5.4 mmol/L (3.5-5.1) H 03/13/23 16:50 Chloride 115 mmol/L (98-107) H 03/13/23 16:50 Carbon Dioxide 13 mmol/L (22-29) L 03/13/23 16:50 Anion Gap 14.4 (5-19) 03/13/23 16:50 BUN 31 mg/dL (6-20) H 03/13/23 16:50 Creatinine 1.5 mg/dL (0.7-1.2) H 03/13/23 16:50 GFR Calculation 48.4 mL/min (90-130) L 03/13/23 16:50 Glucose 115 mg/dL (65-115) 03/13/23 16:50 Calculated Osmolality 291 mOsm/kg (285-295) 03/13/23 16:50 Lactic Acid 0.8 mmol/L (0.5-2.2) 03/13/23 14:07 Calcium 9.2 mg/dL (8.5-10.5) 03/13/23 16:50 Magnesium 1.4 mg/dL (1.7-2.3) L 03/13/23 14:07 Total Bilirubin 0.3 mg/dL (0.15-1.2) 03/13/23 14:07 AST 9 U/L (0-40) 03/13/23 14:07 ALT < 5 U/L (0-41) 03/13/23 14:07 Alkaline Phosphatase 34 U/L (40-130) L 03/13/23 14:07 Troponin T Baseline 65 ng/L (0-15) H 03/13/23 14:07 Troponin T 120 Minute 61.28 ng/L (0-15) H 03/13/23 16:20 Delta Troponin T -3.72 ABS# (0-10) L 03/13/23 16:20 C-Reactive Protein 3.0 mg/L (0.0-4.9) 03/13/23 14:07 NT-Pro-B Natriuret Pep 1276 pg/mL (0-125) H 03/13/23 14:07 Total Protein 4.9 g/dL (6.6-8.7) L 03/13/23 14:07 Albumin 3.8 g/dL (3.5-5.2) 03/13/23 14:07 Globulin 1.1 g/dL (1.3-4.6) L 03/13/23 14:07 Procalcitonin 0.09 ng/mL (0-0.5) 03/13/23 14:07 Urine Color Yellow (Yellow) 03/13/23 14:28 Urine Appearance Clear (CLEAR) 03/13/23 14:28 Urine pH 5 (5-7) 03/13/23 14:28 Ur Specific [place] 1.015 (1.005-1.030) 03/13/23 14:28 Urine Protein 2+ (Negative) H 03/13/23 14:28 Urine Glucose (UA) Norm (Normal) 03/13/23 14:28 Urine Ketones Negative (Negative) 03/13/23 14:28 Urine Blood Neg (Negative) 03/13/23 14:28 Urine Nitrate Negative (Negative) 03/13/23 14:28 Urine Bilirubin Neg (Negative) 03/13/23 14:28 Urine Urobilinogen Norm mg/dL (Negative) 03/13/23 14:28 Ur Leukocyte Esterase Negative (Negative) 03/13/23 14:28 Urine RBC 0-4 /hpf (0-2) H 03/13/23 14:28 Urine WBC 0-4 /hpf (0-5) H 03/13/23 14:28 Ur Squamous Epith Cells 0-4 /hpf (0-5) H 03/13/23 14:28 Amorphous Sediment 1+ /hpf 03/13/23 14:28 Urine Bacteria None /hpf (NONE) 03/13/23 14:28 Hyaline Casts 0-4 /lpf H 03/13/23 14:28 Fine Granular Casts 0-4 /lpf H 03/13/23 14:28 Coarse Granular Casts 0-4 /lpf H 03/13/23 14:28 Urine Mucus 1+ /hpf 03/13/23 14:28 Nasal Influ A H1 2009 PCR Not detected (NOT DETECT) 03/13/23 14:39 Adenovirus (PCR) Not detected (NOT DETECT) 03/13/23 14:39 C. pneumoniae DNA (PCR) Not detected (NOT DETECT) 03/13/23 14:39 Coronavirus 229E (PCR) Not detected (NOT DETECT) 03/13/23 14:39 Human Metapneumovir PCR Not detected (NOT DETECT) 03/13/23 14:39 Influenza A (H1) PCR Not detected (NOT DETECT) 03/13/23 14:39 Influenza A (H3) PCR Not detected (NOT DETECT) 03/13/23 14:39 Influenza Type A (PCR) Not detected (NOT DETECT) 03/13/23 14:39 Influenza Type B (PCR) Not detected (NOT DETECT) 03/13/23 14:39 M. pneumoniae (PCR) Not detected (NOT DETECT) 03/13/23 14:39 Parainfluenza 1 (PCR) Not detected (NOT DETECT) 03/13/23 14:39 Parainfluenza 2 (PCR) Not detected (NOT DETECT) 03/13/23 14:39 Parainfluenza 3 (PCR) Not detected (NOT DETECT) 03/13/23 14:39 Parainfluenza 4 (PCR) Not detected (NOT DETECT) 03/13/23 14:39 RSV Type A (PCR) Not detected (NOT DETECT) 03/13/23 14:39 RSV Type B (PCR) Not detected (NOT DETECT) 03/13/23 14:39 Entero/Rhino (PCR) Not detected (NOT DETECT) 03/13/23 14:39 SARS-CoV-2 (PCR) Not detected (NOT DETECT) 03/13/23 14:39 Discharge Plan Discharge Patient Disposition: Home Clinical Impression: Kidney transplant recipient, FSGS (focal segmental glomerulosclerosis), Acidemia Condition: Stable Prescriptions: New sodium bicarbonate 650 mg tablet 1,300 mg PO BID Qty: 120 0RF No Action tamsulosin 0.4 mg capsule 0.4 mg PO DAILY fluticasone propionate 50 mcg/actuation spray,suspension 1 - 2 spray INTRANASAL DAILY cholecalciferol (vitamin D3) 25 mcg (1,000 unit) capsule 25 mcg PO BID hydromorphone 4 mg tablet 4 mg PO Q4H PRN (Reason: Pain) famotidine 20 mg tablet 20 mg PO BID acetaminophen 325 mg capsule 650 mg PO Q6H PRN (Reason: Pain) loperamide 2 mg capsule 2 mg PO QID PRN (Reason: Diarrhea) magnesium oxide 400 mg magnesium capsule 400 mg PO DAILY tizanidine 2 mg capsule 2 mg PO .COMPLEX PRN (Reason: Pain) Rx Instructions: 2 mg PO PRN; atorvastatin 10 mg tablet 10 mg PO DAILY gabapentin 100 mg Capsule 100 mg PO EVERY OTHER DAY prednisone 5 mg tablet 5 mg PO DAILY diphenoxylate-atropine 2.5-0.025 mg tablet 2 tab PO DAILY PRN (Reason: Diarrhea) tacrolimus 1 mg capsule 2 mg PO BID duloxetine 20 mg capsule,delayed release(DR/EC) 20 mg PO DAILY metoclopramide HCl 10 mg tablet 10 mg PO TID artificial tears(hypromellose) 0.3 % Drops 1 drp OPHTHALMIC (EYE) DAILY PRN (Reason: Itching) losartan 50 mg Tablet 50 mg PO DAILY pantoprazole 40 mg Tablet,Delayed Release (Dr/Ec) 40 mg PO DAILY mupirocin 2 % Ointment 1 applic TOPICAL TID ondansetron 4 mg Tablet,Disintegrating 4 mg PO Q8H Metamucil 0.52 gram Capsule 0.52 g PO DAILY Veltassa 16.8 gram Powder In Packet 16.8 g PO BID Discharge Orders: Discharge ED (Routine); Ordered 03/13/23 Ordered By: Jatinedr Vargas Referrals: Jhony Kaur DO [Primary Care Provider] - Discharge Diet: Usual diet Discharge Activity: Increase activity as tolerated Patient Instructions: Sodium Bicarbonate (By mouth) Activity Restrictions/Additional Instructions: Thank you for visiting the emergency department. You were seen and evaluated for generalized illness. The exact cause of your symptoms is unclear however may be related to transplanted kidney. After discussion with the nephrology team at [facility] you do not require transfer at this time. You were treated with IV fluids, magnesium replenishment, sodium bicarbonate injection. You will also be prescribed sodium bicarbonate pills. Please call your transplant photostat operator in the morning for further discussion. Return for worsening symptoms or anything else that you are concerned about and feel needs emergency department evaluation. Coding Level of Care Code ED Corrective And Manual Arts Therapist for Audrey Almanza
--- NOTE | 2023-03-13 13:55 | XR_ITS ---
WS: [id number] Exam: XR chest 1V portable [id number] Date/Time of Exam: 03/13/2023 1:59 PM Reason For Exam: sob Comparison 08/28/2021. The lungs are fully inflated and clear. Cardiomediastinal silhouette is unremarkable. No pleural effu sions. Bony structures are intact. Degenerative change of the right shoulder with high riding humeral head and postoperative change of the distal right clavicle. XR/XR chest 1V portable [id number] IMPRESSION: 1. No acute cardiopulmonary finding.
[2023-03-13 14:15] LABS: Eosinophils % 0.2 %; Hematocrit 32.6 % (42.0-52.0); Hemoglobin 10.2 g/dL (11.7-16.6); Lymphocytes # 0.5 10^3/uL (0.8-4.8); Lymphocytes % 7.7 %; Mean Corpuscular HGB Conc 31.3 g/dL (30.0-36.0); Mean Corpuscular Hemoglobin 27.6 pg (28.0-34.0); Mean Corpuscular Volume 88.3 fl (80-94); Mean Platelet Volume 10.3 fL (7.4-10.4); Monocytes # 0.6 10^3/uL (0.2-0.9); Monocytes % 10.1 %; Neutrophils # 4.79 10^3/uL (1.8-7.7); Neutrophils % 80.7 %; Nucleated Red Blood Cells % 0 %; Platelet Count 232 10^3/cmm (130-400); Red Blood Count 3.69 10^6/uL (4.1-5.3); Red Cell Distribution Width 15.8 % (12.1-15.1); White Blood Count 5.9 10^3/uL (4.0-10.0)
[2023-03-13] MEDS: morphine 4 mg/mL SDV 1 mL IVP (14:23)
[2023-03-13 14:37] LABS: Lactic Sepsis W/Reflex 0.8 mmol/L (0.5-2.2)
[2023-03-13 14:40] LABS: Troponin(5th) Baseline 65 ng/L (0-15)
[2023-03-13 14:50] LABS: NT Pro B Type Natriuretic Pept 1276 pg/mL (0-125); Procalcitonin 0.09 ng/mL (0-0.5)
[2023-03-13 15:01] LABS: Alanine Aminotransferase < 5 U/L (0-41); Albumin Level 3.8 g/dL (3.5-5.2); Alkaline Phosphatase 34 U/L (40-130); Anion Gap 13.6 (5-19); Aspartate Amino Transferase 9 U/L (0-40); Blood Urea Nitrogen 30 mg/dL (6-20); Calcium 9.1 mg/dL (8.5-10.5); Carbon Dioxide 12 mmol/L (22-29); Chloride 116 mmol/L (98-107); Globulin 1.1 g/dL (1.3-4.6); Glomerular Filtration Rate 41.9 mL/min (90-130); Glucose 120 mg/dL (65-115); Magnesium 1.4 mg/dL (1.7-2.3); Osmolality Calculated 291 mOsm/kg (285-295); Potassium 4.6 mmol/L (3.5-5.1); Sodium 137 mmol/L (136-145); Total Bilirubin 0.3 mg/dL (0.15-1.2); Total Protein 4.9 g/dL (6.6-8.7)
[2023-03-13 15:16] LABS: Add Urine Microscopic? YES; Bilirubin Urine Neg (Negative); Blood Urine Neg (Negative); Glucose Urine UA Norm (Normal); Ketones Urine Negative (Negative); Leukocyte Esterase Urine Negative (Negative); Nitrate Urine Negative (Negative); Protein Urine 2+ (Negative); Specific Gravity, Urine 1.015 (1.005-1.030); Urine Appearance Clear (CLEAR); Urine Color Yellow (Yellow); Urobilinogen Urine Norm (Negative); pH Urine 5 (5-7)
[2023-03-13 15:17] LABS: Add Urine Culture? No; Amorphous Sediment Urine 1+ /hpf; Coarse Granular Casts Urine 0-4 /lpf; Fine Granular Casts Urine 0-4 /lpf; Hyaline Casts Urine 0-4 /lpf; Mucus Urine 1+ /hpf; RBC Urine 0-4 /hpf (0-2); Squamous Epithelial Cell Urine 0-4 /hpf (0-5); WBC Urine 0-4 /hpf (0-5)
[2023-03-13] MEDS: magnesium sulfate premix 2 GM/50 ML PIGGYBACK IV (15:24)
[2023-03-13] MEDS: sodium chloride 0.9% 1,000 ML 999 ML IV (15:26)
--- NOTE | 2023-03-13 15:55 | ECG_ITS ---
[facility] Test Date: 2023-03-13 Pat Name: Mark Mccabe Department: Room: Gender: Male Chemist: : 1965 Requested By: Jatinder Vargas Order Number: [id number] Vela MD: Darron Castanon M.D. Measurements Intervals [place] Rate: 66 P: 55 MI: 154 QRS: -24 QRSD: 97 T: 11 QT: 367 QTc: 385 Interpretive Statements SINUS RHYTHM BORDERLINE LEFT AXIS DEVIATION [QRS AXIS < -20] VOLTAGE CRITERIA FOR LVH [MEETS CRITERIA IN ONE OF: R(aVL), S(V1), R(V5), R(V5/V6)+S(V1)] Compared to ECG 03/13/2023 13:46:41 Left anterior fascicular block no longer present T-wave abnormality no longer present Electronically Signed On 03-13-2023 21:31:37 CDT by Darron Castanon M.D. [id number]
[2023-03-13 16:26] LABS: Adenovirus Not Detected (NOT DETECT); Chlamydia Pneumoniae Not Detected (NOT DETECT); Coronavirus 229E,HKU1,NL63,OC4 Not Detected (NOT DETECT); Human Metapneumovirus Not Detected (NOT DETECT); Human Rhinovirus/Enterovirus Not Detected (NOT DETECT); Influenza A Not Detected (NOT DETECT); Influenza A H1 Not Detected (NOT DETECT); Influenza A H1-2009 Not Detected (NOT DETECT); Influenza A H3 Not Detected (NOT DETECT); Influenza B Not Detected (NOT DETECT); Mycoplasma Pneumoniae Not Detected (NOT DETECT); Parainfluenza Virus Type 1 Not Detected (NOT DETECT); Parainfluenza Virus Type 2 Not Detected (NOT DETECT); Parainfluenza Virus Type 3 Not Detected (NOT DETECT); Parainfluenza Virus Type 4 Not Detected (NOT DETECT); Respiratory Syncytial Virus A Not Detected (NOT DETECT); Respiratory Syncytial Virus B Not Detected (NOT DETECT); SARS-COV-2 Not Detected (NOT DETECT)
[2023-03-13 16:51] LABS: Troponin 5 2HR 61.28 ng/L (0-15)
[2023-03-13 16:55] LABS: Troponin 5 2HR Delta -3.72 ABS# (0-10)
[2023-03-13 17:01] LABS: Blood Urea Nitrogen 31 mg/dL (6-20); Calcium 9.2 mg/dL (8.5-10.5); Carbon Dioxide 13 mmol/L (22-29); Chloride 115 mmol/L (98-107); Glomerular Filtration Rate 48.4 mL/min (90-130); Glucose 115 mg/dL (65-115); Osmolality Calculated 291 mOsm/kg (285-295); Sodium 137 mmol/L (136-145)
[2023-03-13 17:22] LABS: Anion Gap 14.4 (5-19); Potassium 5.4 mmol/L (3.5-5.1)
[2023-03-13 18:35] LABS: ABG PCO2 24.7 mmHg (35-45); ABG PH Result 7.26 (7.35-7.45); Arterial Blood Gas Hematocrit 30.4 % (42-52); Base Excess ABG -14.5 mmol/L (-2.0-2.0); Blood Gas Allen Test Pos; Blood Gas Operator Identificat GD; Blood Gas Sample Site Radial, right; Blood Gas Sample Type Arterial; HCO3 ABG 11.1 mmol/L (22-26); Oxygen Device ROOM AIR
[2023-03-13] MEDS: sodium bicarbonate 1 mEq/mL SDV 50mL 50 MEQ IVP (18:59)
== END 2023-03-13 19:08 | disposition home or self-care (01) ==
PROVIDERS: Emergency Provider Emergency Medicine; PCP Internal Medicine
DX: E87.20 Acidosis, unspecified (principal); Z94.0 Kidney transplant status; Z87.891 Personal history of nicotine dependence; I12.0 Hypertensive chronic kidney disease with stage 5 chronic kidney disease or end stage renal disease; N18.6 End stage renal disease; Z99.2 Dependence on renal dialysis; E78.5 Hyperlipidemia, unspecified
CPT/HCPCS: 36415; 36600; 71045; 80048; 80053; 81001; 82803; 83605; 83735; 83880; 84145; 84484; 85025; 86140; 87040; 87486; 87581; 87633; 93005; 96365; 96366; 96375; 99285; J2270; J3475; J7030

== ENCOUNTER 2023-03-19 13:33 | Outpatient (CLI) | payer MEDICARE, OTHER, SELFPAY ==
--- NOTE | 2023-03-19 14:01 | CT_ITS ---
WS: [id number] CT ABDOMEN AND PELVIS NONCONTRAST HISTORY: KIDNEY REPLACED BY TRANSPLANT TECHNIQUE: Imaging performed through the abdomen and pelvis. Coronal and sagittal reformats are submi tted. All CT scans at [facility] use at least one of these dose optimization techniques: auto mated exposure control; mA and/or kV adjustment per patient size (includes targeted exams where dose is matched to clinical indication); or iterative reconstruction. DLP: 276.92 mGy.cm COMPARISON: 10/27/2020 Lower thorax: 3 mm nodule RIGHT middle lobe is stable. Normal size heart. No hiatal hernia. Liver: Normal size liver. No mass or bile duct dilatation. Gallbladder: Prior cholecystectomy. Pancreas: Normal size and attenuation. Normal pancreatic duct. No pancreatitis or mass. Spleen: Normal. Adrenal glands: Normal. No mass. Right kidney: Severe atrophy. Left kidney: Severe atrophy. Transplanted kidney in the RIGHT pelvis is normal size. No perinephric fluid collection. No obstructi on of the renal pelvis. Aorta: Mild atherosclerosis abdominal aorta with no aneurysm. No free fluid, intraperitoneal air or significant lymphadenopathy. GI tract: Normal noncontrast imaging of the stomach, small bowel and colon. No obstruction or wall th ickening. Prior appendectomy. Abdominal wall: Negative. No hernia. Pelvis: No free fluid in the pelvis. Minimally distended urinary bladder. No adenopathy. Osseous structures: Bilateral femoral head osteonecrosis. Lumbar scoliosis. CT/CT abdomen pelvis wo con [id number] IMPRESSION: 1. No acute abdominal or pelvic abnormalities. 2. Severe atrophy bilateral kidneys. 3. Unremarkable imaging appearance RIGHT transplanted pelvic kidney. 4. Prior cholecystectomy. 5. Bilateral femoral head osteonecrosis.
--- NOTE | 2023-03-19 14:21 | XR_ITS ---
WS: [id number] EXAMINATION: XR chest 2V* [id number] REASON FOR EXAM: KIDNEY TRANSPLANT COMPARISON: 03/13/2023 ORDER DATE: 03/19/2023 2:31 PM FINDINGS: The lungs are clear of infiltrate. The cardiac and mediastinal outlines are unremarkable. There ar e no significant pleural effusions . No significant abnormalities are noted in the spine. Degenerativ e change of the right shoulder with high riding humeral head and postoperative change of the distal right clavicle. XR/XR chest 2V* [id number] IMPRESSION: NO ACUTE PULMONARY CHANGE.
== END 2023-03-19 13:34 | disposition home or self-care (01) ==
LOC: RAD 13:35
PROVIDERS: PCP Internal Medicine; Visit Provider Internal Medicine Nephrology
DX: Z94.0 Kidney transplant status (principal); R62.7 Adult failure to thrive; R11.0 Nausea; R19.7 Diarrhea, unspecified; R63.4 Abnormal weight loss; R10.9 Unspecified abdominal pain
CPT/HCPCS: 71046; 74176; 99203

== ENCOUNTER 2023-04-05 06:52 | Outpatient (CLI) | payer MEDICARE, OTHER, SELFPAY ==
--- NOTE | 2023-04-05 07:22 | USCV_ITS ---
Mark Mccabe Age: 57 Gender: M : 1965 Exam Date: 04/05/2023 07:34 Ordering Phys: Iron Babb MD Technologist: Trinidad Peterson Exam Location: [facility] [place] Indication: Kidney transplant Abd Pain Weight loss Type of Exam: Mesenteric Artery 8 Ounces Of Ensure Plus Time of Ingestion: 0745 Minutes Post-Prandial: 30 minutes Pre-Prandial Post-Prandial SUPERIOR MESENTERIC ARTERY Aorta @ SMA: 66.4 cm/s 117 cm/s Celiac Artery: 138 cm/s 155 cm/s Hepatic Artery: 182 cm/s 157 cm/s Splenic Artery: 99.8 cm/s 141 cm/s SMA Prox 169 cm/s 241 cm/s SMA Mid: 139 cm/s 126 cm/s SMA Distal: 84.3 cm/s 154 cm/s AYO Prox: 116 cm/s 167 cm/s Findings: Normal/near normal resting Doppler flow velocities in the proximal segments of the celiac, hepatic, splenic, superior and inferior mesenteric arteries. Significantly elevated postprandial velocity in the proximal SMA Technically somewhat difficult study because of the suboptimal visualization of the arteries Mild to moderate diffuse plaques in the abdominal aorta Conclusions Elevated postprandial velocity in the proximal superior mesenteric artery suggesting 0 to 69% stenosis. No significant stenosis in the other arteries mentioned. Mild to moderate diffuse plaques in the abdominal aorta with no significant stenosis, based on the Doppler velocity. No similar previous studies are available for comparison Dr Darron Castanon MD [facility] (Electronically Signed) Final Date: 05 April 2023 18:42 S
== END 2023-04-05 06:53 | disposition home or self-care (01) ==
LOC: RAD 06:52
PROVIDERS: PCP Internal Medicine; Visit Provider Internal Medicine Nephrology
DX: Z94.0 Kidney transplant status (principal); R62.7 Adult failure to thrive; R11.0 Nausea; R19.7 Diarrhea, unspecified; R63.4 Abnormal weight loss; R10.9 Unspecified abdominal pain; I70.0 Atherosclerosis of aorta; Z79.60 Long term (current) use of unspecified immunomodulators and immunosuppressants
CPT/HCPCS: 93975

== ENCOUNTER 2023-04-12 08:06 | Day surgery (SDC) | payer MEDICARE, OTHER, SELFPAY ==
[2023-04-11 08:35] VITALS: BMI 19.8
[2023-04-12 08:38] VITALS: BP 131/87; PULSE 70; RESP 16; TEMP 36.4; O2SAT 99
[2023-04-12] MEDS: sodium chloride 0.9% 1,000 ML 30 ML IV (08:46)
--- NOTE | 2023-04-12 09:42 | ANES.PREANE2 ---
Pre-Anesthetic Assessment Height/Weight: Height 1.85 m Weight 68.039 kg Temp Pulse Resp BP Pulse Ox O2 Del Method 97.6 F 70 16 131/87 99 Room Air 04/12/23 08:38 04/12/23 08:38 04/12/23 08:38 04/12/23 08:38 04/12/23 08:38 04/12/23 08:38 Preop Diagnosis: GERD h/o colonic polyps Operation Date: 04/12/23 09:30 Proposed Procedures p [id number] egd [id number] colon K21.9,Z86.010(Not Applicable) - DO esther Tohmason Colonoscopy(Not Applicable) - Ric Byrd DO Familial anesthetic complications: none Was Beta Cm taken within 24 hours: N/A Last intake: Intake Last Liquid Date 04/11/23 Last Liquid Time 20:00 Last Solid Date 04/10/23 Last Solid Time 19:00 Social No alcohol and No tobacco Exam alert, oriented x 3 and clear to auscultation bilaterally Airway Submandibular: within normal limits Cervical ROM: within normal limits Mallampati: Class I Dentition: false Pulmonary None reported CV/HEM Hypertension Chronic Renal Failure 2021 renal transplant immunocompromised FSGS- focal segmental glomerulosclerosis Plasmapheresis x1-2 week Hepatic None reported GI Gastroesophageal Reflux Disease and Peptic Ulcer Disease Metabolic Hyperlipidemia [facility] [place] None reported Neuropsych None reported Anesthetic Plan ASA status: 4 Anesthesia: MAC Medications/Allergies Home Medications Medication Instructions Recorded Confirmed Last Taken Type cholecalciferol (vitamin D3) 25 25 mcg PO BID 01/14/20 03/13/23 03/13/23 History mcg (1,000 unit) capsule fluticasone propionate 50 1 - 2 spray intranasal DAILY 01/14/20 03/13/23 03/13/23 History mcg/actuation nasal spray,suspension tamsulosin 0.4 mg capsule 0.4 mg PO DAILY 01/14/20 03/13/23 03/13/23 History atorvastatin 10 mg tablet 10 mg PO DAILY 02/13/21 03/13/23 03/13/23 History gabapentin 100 mg capsule 100 mg PO EVERY OTHER DAY 02/13/21 03/13/23 11/28/22 History famotidine 20 mg tablet 20 mg PO BID 07/11/21 03/13/23 03/13/23 History hydromorphone 4 mg tablet 4 mg PO Q4H PRN Pain 07/11/21 03/13/23 11/28/22 History diphenoxylate-atropine 2.5 2 tab PO DAILY PRN Diarrhea 01/16/22 03/13/23 11/28/22 History mg-0.025 mg tablet duloxetine 20 mg capsule,delayed 20 mg PO DAILY 01/16/22 03/13/23 03/13/23 History release prednisone 5 mg tablet 5 mg PO DAILY 01/16/22 03/13/23 03/13/23 History tacrolimus 1 mg capsule, 2 mg PO BID 01/16/22 03/13/23 03/13/23 History immediate-release acetaminophen 325 mg capsule 650 mg PO Q6H PRN Pain 03/20/22 03/13/23 11/28/22 History loperamide 2 mg capsule 2 mg PO QID PRN Diarrhea 03/20/22 03/13/23 11/28/22 History magnesium oxide 400 mg PO DAILY 03/20/22 03/13/23 03/13/23 History metoclopramide HCl 10 mg tablet 10 mg PO TID 03/20/22 03/13/23 03/13/23 History tizanidine 2 mg capsule 2 mg PO .COMPLEX PRN Pain 03/20/22 03/13/23 11/28/22 History artificial tears(hypromellose) 0.3 1 drp ophthalmic (eye) DAILY PRN 03/13/23 03/13/23 Unknown History % eye drops Itching losartan 50 mg tablet 50 mg PO DAILY 03/13/23 03/13/23 03/13/23 History mupirocin 2 % topical ointment 1 applic topical TID 03/13/23 03/13/23 Unknown History ondansetron 4 mg disintegrating 4 mg PO Q8H 03/13/23 03/13/23 Unknown History tablet pantoprazole 40 mg tablet,delayed 40 mg PO DAILY 03/13/23 03/13/23 03/13/23 History release patiromer calcium sorbitex 16.8 16.8 g PO BID 03/13/23 03/13/23 03/13/23 History gram oral powder packet (Veltassa) psyllium husk 0.52 gram capsule 0.52 g PO DAILY 03/13/23 03/13/23 03/13/23 History sodium bicarbonate 650 mg tablet 1,300 mg PO BID #120 tabs 03/13/23 Unknown Rx pantoprazole 40 mg tablet,delayed 40 mg PO BID 6 weeks #84 tabs 04/12/23 Unknown Rx release (Protonix) sucralfate 1 gram tablet (Carafate) 1 g PO BID 4 weeks #56 tabs 04/12/23 Unknown Rx Allergies Allergy/AdvReac Type Severity Reaction Status Date / Time No Known Allergies Allergy Verified 04/11/23 08:34 Current Medications Generic Name Dose Route Start Last Admin Trade Name Freq PRN Reason Stop Dose Admin Sodium Chloride 1,000 mls @ 30 mls/hr 04/12/23 08:30 04/12/23 08:46 Sodium Chloride 0.9% IV 04/13/23 08:29 30 mls/hr .Q24H NERY Administration PFSH Anesthesia Medical History (Updated 03/24/23 @ 00:01 by PRIYANKA Erickson) Avascular necrosis of left humeral head Avascular necrosis of right humeral head Axonal sensorimotor neuropathy Benign prostatic hyperplasia Carpal tunnel syndrome, bilateral upper limbs Degenerative arthritis Degenerative joint disease of spine ESRD (end stage renal disease) Fibromyalgia FSGS (focal segmental glomerulosclerosis), tip variant with nephrosis Gout Hereditary and idiopathic neuropathy History of peritonitis In association with peritoneal dialysis Hyperlipidemia Hypertension 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 therapy Obstructive sleep apnea Peptic ulcer disease Pulmonary hypertension associated with ESRD on dialysis Surgical History (Updated 03/23/23 @ 11:36 by Jatinder Vargas MD) History of arthroscopic knee surgery x 3 History of arthroscopy of right shoulder History of bilateral carpal tunnel release History of cholecystectomy History of esophagogastroduodenoscopy (EGD) less than 1 year History of kidney transplant (09/2021) History of right breast biopsy for benign disease History of thoracotomy with chest tube, for pneumonia History of umbilical hernia repair Hx of colonoscopy less than 1 year, no polyps Family History Father CAD (coronary artery disease) Chronic kidney disease (CKD) Mother Arthritis Other Diabetes Hyperlipidemia Hypertension Denies family history of Clotting disorder Dementia Psychiatric illness Suicide Anesthesia complication Bleeding disorder Lung disease Cancer Stroke Social History Smoking and tobacco status: former smoker (Smoked for 15 years) Alcohol intake: never Substance/Drug Use: never Household members: spouse Marital status: Current occupational status: disabled Data Anesthesia 04/12/23 09:47 Cardiac Studies: Sestamibi Stress Test (Cardiology) 08/27/19
[2023-04-12 10:30] LABS: Alanine Aminotransferase < 5 U/L (0-41); Albumin Level 3.4 g/dL (3.5-5.2); Alkaline Phosphatase 45 U/L (40-130); Anion Gap 12.8 (5-19); Aspartate Amino Transferase 10 U/L (0-40); Blood Urea Nitrogen 23 mg/dL (6-20); Calcium 9.3 mg/dL (8.5-10.5); Carbon Dioxide 22 mmol/L (22-29); Chloride 107 mmol/L (98-107); Glomerular Filtration Rate 48.4 mL/min (90-130); Glucose 85 mg/dL (65-115); Osmolality Calculated 287 mOsm/kg (285-295); Potassium 4.8 mmol/L (3.5-5.1); Sodium 137 mmol/L (136-145); Total Bilirubin 0.4 mg/dL (0.15-1.2); Total Protein 5.4 g/dL (6.6-8.7)
--- NOTE | 2023-04-12 10:43 | W.PM.OPSUD ---
Surgery/Procedure H&P Update DATE OF PROCEDURE: April 12, 2023 DATE H&P PERFORMED: 03/19/23 H&P UPDATE INFORMATION: I have reviewed H&P completed within last 30 days, I have examined patient prior to procedure and No changes to prior documentation PREOP DIAGNOSIS: GERD h/o colonic polyps PLANNED PROCEDURE: Operation Date: 04/12/23 09:30 Proposed Procedures p [id number] egd [id number] colon K21.9,Z86.010(Not Applicable) - DO esther Thomason Colonoscopy(Not Applicable) - Ric Byrd DO
--- NOTE | 2023-04-12 11:07 | PC.NURSE ---
Pt was directed to bring medication list with him but forgot. Pt unable to tell staff current medications. Staff called Pt pharmacy and requested updated medication list to be faxed. Meds could not be reconciled, as fax had not been delivered by the time pt was taken for procedure, anesthesia was ok with proceed.
[2023-04-12 11:18] VITALS: BP 109/73; PULSE 72; RESP 16; TEMP 36.1; O2SAT 98
[2023-04-12] MEDS: EPINEPHrine 1 mg/mL INJ XX (11:18)
--- NOTE | 2023-04-12 11:19 | PC.NURSE ---
1 ml of epi mixed with 9 ml of normal saline. 2ml given.
[2023-04-12 11:32] VITALS: BP 118/75; PULSE 67; RESP 16; O2SAT 92
[2023-04-12 11:40] VITALS: BP 116/75; PULSE 78; RESP 16; O2SAT 100
--- NOTE | 2023-04-12 13:08 | ANE.PACU2 ---
Inpatient post-anesthesia follow up: Airway intact: Yes Vital signs: Temperature 97.0 F Pulse Rate 78 Respiratory Rate 16 Blood Pressure 116/75 Pulse Oximetry 100 Oxygen Delivery Me thod Room Air Oxygen Flow Rate Fraction of Inspir ed Oxygen Hydration adequate: Yes Nausea and vomiting: No Pain level: 2 Mental status: Baseline
== END 2023-04-12 12:00 | disposition home or self-care (01) ==
PROVIDERS: PCP Internal Medicine; Visit Provider Surgery
PROC: 0DJ08ZZ Inspection of Upper Intestinal Tract, Via Natural or Artificial Opening Endoscopic (ICD-10-PCS; CPT 43235; principal; 2023-04-12 09:30)
PROC: 0DJD8ZZ Inspection of Lower Intestinal Tract, Via Natural or Artificial Opening Endoscopic (ICD-10-PCS; CPT 45378; 2023-04-12 09:30)
DX: K21.9 Gastro-esophageal reflux disease without esophagitis (principal); Z86.010 Personal history of colon polyps; K29.50 Unspecified chronic gastritis without bleeding; D12.5 Benign neoplasm of sigmoid colon; I10 Essential (primary) hypertension; E78.5 Hyperlipidemia, unspecified; Z79.52 Long term (current) use of systemic steroids; Z87.891 Personal history of nicotine dependence
CPT/HCPCS: 43239; 45385; 80053; 88305; 88342; J0171; J2704; J7030

== ENCOUNTER 2023-05-23 10:53 | Outpatient (CLI) | payer MEDICARE, OTHER, SELFPAY ==
[2023-05-23 11:10] LABS: D Dimer 0.45 ug/mLFEU (0-0.59)
== END 2023-05-23 10:54 | disposition home or self-care (01) ==
LOC: LAB 10:54
PROVIDERS: PCP Internal Medicine; Visit Provider Nurse Practitioner
DX: R00.2 Palpitations (principal)
CPT/HCPCS: 85378

== ENCOUNTER 2023-05-26 01:52 | Emergency (ER) | payer MEDICARE, OTHER, SELFPAY ==
[2023-05-26 01:59] VITALS: BP 116/80; PULSE 148; RESP 18; TEMP 37.1; O2SAT 96; BMI 21.7
--- NOTE | 2023-05-26 02:01 | ECG_ITS ---
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 Measurements Intervals [place] Rate: 102 P: 0 KS: 0 QRS: -50 QRSD: 94 T: 96 QT: 292 QTc: 381 Interpretive Statements SUPRAVENTRICULAR TACHYCARDIA LEFT ANTERIOR FASCICULAR BLOCK [QRS AXIS <= -45, QR IN I, RS IN II] LEFT VENTRICULAR HYPERTROPHY AND ST-T CHANGE [VOLTAGE CRITERIA PLUS ST/T ABNORMALITY] Compared to ECG 03/13/2023 15:58:04 Left anterior fascicular block now present ST (T wave) deviation now present Sinus rhythm no longer present Electronically Signed On 05-26-2023 11:09:06 CDT by David Gonzales M.D. [email or web address]
[2023-05-26 02:18] LABS: Hematocrit 32.7 % (37-53); Mean Corpuscular HGB Conc 31.2 g/dL (30-55); Mean Corpuscular Hemoglobin 28.3 pg (27-33); Mean Corpuscular Volume 90.6 fl (82-101); Mean Platelet Volume 9.3 fL (7.4-10.4); Platelet Count 337 10^3/cmm (157-399); Red Blood Count 3.61 10^6/uL (3.85-5.65); Red Cell Distribution Width 17.3 % (12.1-15.1); White Blood Count 8.17 10^3/uL (3.29-11.43)
[2023-05-26 02:32] VITALS: BP 123/80; PULSE 103; RESP 21; O2SAT 97
--- NOTE | 2023-05-26 02:38 | XRR_ITS ---
PROCEDURE INFORMATION: Exam: XR Chest Exam date and time: 05/26/2023 2:39 AM Age: 58 years old Clinical indication: Pain; Angina pectoris and chest pressure; Additional info: Cp TECHNIQUE: Imaging protocol: Radiologic exam of the chest. Views: 1 view. COMPARISON: CR XR chest 2V* [id number] 03/19/2023 2:31 PM FINDINGS: Lungs: Unremarkable. No consolidation. Pleural spaces: Unremarkable. No pleural effusion. No pneumothorax. Heart/Mediastinum: Unremarkable. No cardiomegaly. Bones/joints: Unremarkable. XR/XR chest 1V portable [id number] IMPRESSION: No acute findings.
[2023-05-26 02:42] LABS: Troponin(5th) Baseline 64 ng/L (0-15)
[2023-05-26 02:59] LABS: Alanine Aminotransferase 6 U/L (0-41); Albumin Level 4.1 g/dL (3.5-5.2); Alkaline Phosphatase 70 U/L (40-130); Anion Gap 17.6 (5-19); Aspartate Amino Transferase 12 U/L (0-40); Blood Urea Nitrogen 28 mg/dL (6-20); Carbon Dioxide 20 mmol/L (22-29); Chloride 104 mmol/L (98-107); Globulin 1.8 g/dL (1.3-4.6); Glomerular Filtration Rate 41.8 mL/min (90-130); Glucose 105 mg/dL (65-115); NT Pro B Type Natriuretic Pept 1432 pg/mL (0-125); Osmolality Calculated 290 mOsm/kg (285-295); Potassium 4.6 mmol/L (3.5-5.1); Sodium 137 mmol/L (136-145); Total Bilirubin 0.3 mg/dL (0.15-1.2); Total Protein 5.9 g/dL (6.6-8.7)
[2023-05-26 03:05] LABS: Slide Review Slide Review Perform
[2023-05-26 03:06] LABS: Absolute Eosinophils 0.2 10^3/cmm (0.0-0.7); Absolute Segmented Neutrophil 4.7 10/cmm (1.6-7.1); Band Neutrophils Absolute 0.3 10^3/cmm (0.0-1.2); Basophils Absolute 0.1 10^3/cmm (0.0-0.2); Eosinophils 2 %; Lymphocytes 25 %; Monocytes Absolute 0.7 10^3/cmm (0.1-0.6); Platelet Estimate Normal (Normal); Segmented Neutrophils 57 %; Total Cells Counted 100 (0-100)
[2023-05-26 03:07] LABS: Ovalocytes 2+; Poikilocytosis 2+
[2023-05-26] MEDS: metoprolol tartrate 1 mg/1 mL SDV 5 mL 2.5 MG IVP (03:24)
[2023-05-26 04:27] VITALS: BP 123/82; PULSE 85; RESP 18; O2SAT 94
--- NOTE | 2023-05-26 04:42 | ED_ITS ---
HPI - Arrhythmia/Palpitations General: Chief Complaint: Arrhythmia/Palpitations Stated Complaint: Chest Pains Time Seen by Provider: 05/26/23 02:01 History of Present Illness: 58-year-old male with a history of focal focal segmental glomerulosclerosis status post kidney transplant. He has chronic renal insufficiency. He gets plasmapheresis once weekly. He presents with chest discomfort. Chest discomfort is less now on my examination than it was on his arrival. His heart rate was above 150 at home. It was registering near 200 on his arrival to the emergency department. Heart rate is improved now, and so was his chest discomfort. He was short of breath prior. He has had a couple of these episodes at home that have seemed to resolve on their own. He is supposed to se e a immunohematologist as an outpatient regarding the symptoms, but does not have an appointment yet. He has noticed the symptoms since he had COVID a month or so ago. No other recent illness besides that. Associated symptoms: Reports anxiety and nausea; Deny vomiting Review of Systems Const: Denies: fever(s) Eyes: Denies: change in vision Card: Reports: chest pain and palpitations Resp: Reports: dyspnea; Denies: productive cough or non-productive cough GI: Reports: abdominal pain and nausea; Denies: vomiting Skin/Breast: Denies: rash Neuro: Reports: headache(s) Psych: Reports: anxiety PFSH ED PFSH: Medical History Avascular necrosis of left humeral head Avascular necrosis of right humeral head Axonal sensorimotor neuropathy Benign prostatic hyperplasia Carpal tunnel syndrome, bilateral upper limbs Degenerative arthritis Degenerative joint disease of spine ESRD (end stage renal disease) Fibromyalgia FSGS (focal segmental glomerulosclerosis), tip variant with nephrosis Gout Hereditary and idiopathic neuropathy History of peritonitis In association with peritoneal dialysis Hyperlipidemia Hypertension 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 therapy Obstructive sleep apnea Peptic ulcer disease Pulmonary hypertension associated with ESRD on dialysis Surgical History History of arthroscopic knee surgery x 3 History of arthroscopy of right shoulder History of bilateral carpal tunnel release History of cholecystectomy History of esophagogastroduodenoscopy (EGD) less than 1 year History of kidney transplant (09/2021) History of right breast biopsy for benign disease History of thoracotomy with chest tube, for pneumonia History of umbilical hernia repair Hx of colonoscopy less than 1 year, no polyps Family History Father CAD (coronary artery disease) Chronic kidney disease (CKD) Mother Arthritis Other Diabetes Hyperlipidemia Hypertension Denies family history of Clotting disorder Dementia Psychiatric illness Suicide Anesthesia complication Bleeding disorder Lung disease Cancer Stroke Social History Smoking and tobacco status: former smoker (Smoked for 15 years) Alcohol intake: never Substance/Drug Use: never Household members: spouse Marital status: Current occupational status: disabled Physical Exam Const: COMMON NORMALS: no acute distress GENERAL APPEARANCE: cooperative and frail appearing; not ill appearing HENMT: COMMON NORMALS: normocephalic, atraumatic and Normal external nose present HEAD & SCALP: normocephalic and atraumatic FACE & SINUS: normal facial exam and face symmetric NOSE: Normal external nose present Eye: COMMON NORMALS: Equal, round and reactive pupils present and EOMs intact bilaterally PUPIL: Yes Equal, round and reactive pupils present Neck/C-Spine: GENERAL: Yes trachea midline Chest: CHEST: Yes Symmetrical chest wall rise Resp: COMMON NORMALS: normal respiratory effort, No retractions, No use of accessory muscles and clear to auscultation bilaterally AUSCULTATION: clear to auscultation bilaterally Cardio: COMMON NORMALS: regular rhythm RATE: tachycardic RHYTHM: regular rhythm GI: COMMON NORMALS: Normal to inspection, nondistended, normoactive bowel so unds present Extremity: COMMON NORMALS: no pedal edema Neuro: CHARISSE COMA SCALE: document GCS findings [place] coma scale eye opening: Spontaneous [place] coma scale verbal response: Orientated [place] coma scale motor response: Obey commands [place] coma scale total score: 15 SENSORY EXAM: Yes extremities (intact) Psych: COMMON NORMALS: speech normal SPEECH: Yes normal speech Skin: COMMON NORMALS: no rashes or lesions noted GENERAL SKIN EXAM: no rashes or lesions noted Course Vital Signs: Vital signs: Vital Signs Temperature 98.7 F 05/26/23 01:59 Pulse Rate 85 05/26/23 04:27 Respiratory Rate 18 05/26/23 04:27 Blood Pressure 123/82 05/26/23 04:27 Pulse Oximetry 94 05/26/23 04:27 Oxygen Delivery Me thod Room Air 05/26/23 02:32 MDM - Arrhythmia/Palpitations Medical Decision Making Patient's heart rate was nearly 200 on arrival. It slowed on its own prior to his first EKG. EKG shows supraventricular tachycardia with a rate of 100. There is left anterior fascicular block and left ventricular hypertrophy present. QTc is normal. He is given 2.5 mg of metoprolol IV with slowing of his heart rate down into the mid 80s to lower 80s. He feels much better. His chest x-ray is nonacute. Hemoglobin is 10 which is stable. Creatinine is 1.7 which is stable from prior in the week. Bicarbonate is 20. Other laboratory not remarkable. His first troponin is at his baseline. His BNP is at his baseline. Given these findings, he will be allowed home. He elected to try 12- 1/2 mg of metoprolol twice daily in an attempt to prevent these episodes. He will call his physicians on Saturday to let them know the plan prior to starting his medication. He will return for any continued problems. Lab Data 05/26/23 02:13 05/26/23 02:13 Radiology Impressions Chest X-Ray 05/26/23 02:38 IMPRESSION: No acute findings. Laboratory Results WBC 8.17 10^3/uL (3.29-11.43) 05/26/23 02:13 RBC 3.61 10^6/uL (3.85-5.65) L 05/26/23 02:13 Hgb 10.20 g/dL (11.27-16.99) L 05/26/23 02:13 Hct 32.7 % (37-53) L 05/26/23 02:13 MCV 90.6 fl (82-101) 05/26/23 02:13 MCH 28.3 pg (27-33) 05/26/23 02:13 MCHC 31.2 g/dL (30-55) 05/26/23 02:13 RDW 17.3 % (12.1-15.1) H 05/26/23 02:13 Plt Count 337 10^3/cmm (157-399) 05/26/23 02:13 MPV 9.3 fL (7.4-10.4) 05/26/23 02:13 Lymph % (Auto) Not Reportable 05/26/23 02:13 [place] % (Auto) Not Reportable 05/26/23 02:13 Lymph # (Auto) Not Reportable 05/26/23 02:13 [place] # (Auto) Not Reportable 05/26/23 02:13 Total Counted 100 (0-100) 05/26/23 02:13 Atypical Lymphs % 0.0 % (0-5) 05/26/23 02:13 Absolute Neutrophils 5.0 10^3/cmm (1.4-6.5) 05/26/23 02:13 Segmented Neutrophils 57 % 05/26/23 02:13 Abs Segm Neuts (Man) 4.7 10/cmm (1.6-7.1) 05/26/23 02:13 Band Neutrophils 4.0 % 05/26/23 02:13 Abs Band Neuts (Man) 0.3 10^3/cmm (0.0-1.2) 05/26/23 02:13 Absolute Lymphocytes 2.0 10^3/cmm (1.2-3.4) 05/26/23 02:13 Lymphocytes (Manual) 25 % 05/26/23 02:13 Monocytes (Manual) 8.0 % 05/26/23 02:13 Absolute Monocytes 0.7 10^3/cmm (0.1-0.6) H 05/26/23 02:13 Eosinophils (Manual) 2 % 05/26/23 02:13 Absolute Eosinophils 0.2 10^3/cmm (0.0-0.7) 05/26/23 02:13 Basophils (Manual) 1.0 % 05/26/23 02:13 Absolute Basophils 0.1 10^3/cmm (0.0-0.2) 05/26/23 02:13 Myelocytes 3.0 % 05/26/23 02:13 Platelet Estimate Normal (Normal) 05/26/23 02:13 Poikilocytosis 2+ H 05/26/23 02:13 Ovalocytes 2+ H 05/26/23 02:13 Sodium 137 mmol/L (136-145) 05/26/23 02:13 Potassium 4.6 mmol/L (3.5-5.1) 05/26/23 02:13 Chloride 104 mmol/L (98-107) 05/26/23 02:13 Carbon Dioxide 20 mmol/L (22-29) L 05/26/23 02:13 Anion Gap 17.6 (5-19) 05/26/23 02:13 BUN 28 mg/dL (6-20) H 05/26/23 02:13 Creatinine 1.7 mg/dL (0.7-1.2) H 05/26/23 02:13 GFR Calculation 41.8 mL/min (90-130) L 05/26/23 02:13 Glucose 105 mg/dL (65-115) 05/26/23 02:13 Calculated Osmolality 290 mOsm/kg (285-295) 05/26/23 02:13 Calcium 9.0 mg/dL (8.5-10.5) 05/26/23 02:13 Total Bilirubin 0.3 mg/dL (0.15-1.2) 05/26/23 02:13 AST 12 U/L (0-40) 05/26/23 02:13 ALT 6 U/L (0-41) 05/26/23 02:13 Alkaline Phosphatase 70 U/L (40-130) 05/26/23 02:13 Troponin T Baseline 64 ng/L (0-15) H 05/26/23 02:13 NT-Pro-B Natriuret Pep 1432 pg/mL (0-125) H 05/26/23 02:13 Total Protein 5.9 g/dL (6.6-8.7) L 05/26/23 02:13 Albumin 4.1 g/dL (3.5-5.2) 05/26/23 02:13 Globulin 1.8 g/dL (1.3-4.6) 05/26/23 02:13 All radiology interpretation(s) finalized by discharge Discharge Plan Discharge Patient Disposition: Home Clinical Impression: Paroxysmal supraventricular tachycardia Condition: Stable Prescriptions: New metoprolol tartrate 25 mg tablet 12.5 mg PO Q12H Qty: 30 0RF No Action tamsulosin 0.4 mg capsule 0.4 mg PO DAILY fluticasone propionate 50 mcg/actuation spray,suspension 1 - 2 spray INTRANASAL DAILY cholecalciferol (vitamin D3) 25 mcg (1,000 unit) capsule 25 mcg PO BID hydromorphone 4 mg tablet 4 mg PO Q4H PRN (Reason: Pain) famotidine 20 mg tablet 20 mg PO BID acetaminophen 325 mg capsule 650 mg PO Q6H PRN (Reason: Pain) loperamide 2 mg capsule 2 mg PO QID PRN (Reason: Diarrhea) magnesium oxide 400 mg magnesium capsule 400 mg PO DAILY tizanidine 2 mg capsule 2 mg PO .COMPLEX PRN (Reason: Pain) Rx Instructions: 2 mg PO PRN; atorvastatin 10 mg tablet 10 mg PO DAILY gabapentin 100 mg Capsule 100 mg PO EVERY OTHER DAY Protonix 40 mg tablet,delayed release (DR/EC) 40 mg PO BID 42 Days Qty: 84 1RF prednisone 5 mg tablet 5 mg PO DAILY diphenoxylate-atropine 2.5-0.025 mg tablet 2 tab PO DAILY PRN (Reason: Diarrhea) tacrolimus 1 mg capsule 2 mg PO BID duloxetine 20 mg capsule,delayed release(DR/EC) 20 mg PO DAILY metoclopramide HCl 10 mg tablet 10 mg PO TID artificial tears(hypromellose) 0.3 % Drops 1 drp OPHTHALMIC (EYE) DAILY PRN (Reason: Itching) losartan 50 mg Tablet 50 mg PO DAILY pantoprazole 40 mg Tablet,Delayed Release (Dr/Ec) 40 mg PO DAILY Hold Instructions: Resume on 05/24/23. mupirocin 2 % Ointment 1 applic TOPICAL TID ondansetron 4 mg Tablet,Disintegrating 4 mg PO Q8H psyllium husk 0.52 gram Capsule 0.52 g PO DAILY Veltassa 16.8 gram Powder In Packet 16.8 g PO BID sodium bicarbonate 650 mg tablet 1,300 mg PO BID Qty: 120 0RF Discharge Orders: Discharge ED (Routine); Ordered 05/26/23 Ordered By: Jaerth Sparks Referrals: Jhony Kaur DO [Primary Care Provider] - 1-3 days Patient Instructions: Supraventricular Tachycardia (ED), Opioid Safety, Pain Management Activity Restrictions/Additional Instructions: Medication as directed. Return for repeated episodes of chest pain, shortness of breath, fever, other concerning symptoms. Call your doctor on Saturday, and let them know you were seen here, what was determined, and the plan for action. Coding Level of Care Code ED Furnace Process Supervisor for Audrey Almanza
== END 2023-05-26 04:08 | disposition home or self-care (01) ==
PROVIDERS: Emergency Provider Emergency Medicine; PCP Internal Medicine
DX: I47.19 Other supraventricular tachycardia (principal); Z87.891 Personal history of nicotine dependence; I12.0 Hypertensive chronic kidney disease with stage 5 chronic kidney disease or end stage renal disease; N18.6 End stage renal disease; E78.5 Hyperlipidemia, unspecified; Z99.2 Dependence on renal dialysis; Z94.0 Kidney transplant status
CPT/HCPCS: 36415; 71045; 80053; 83880; 84484; 85007; 85025; 93005; 96374; 99285; J3490

== ENCOUNTER 2023-05-28 07:10 | Outpatient (CLI) | payer MEDICARE, OTHER, SELFPAY ==
--- NOTE | 2023-05-28 07:21 | MR_ITS ---
WS: [id number] MRI BRAIN WITHOUT CONTRAST HISTORY: KIDNEY REPLACED BY TRANSPLANT/MEMORY DEFICIT COMPARISON: 08/08/2020 TECHNIQUE: Diffusion imaging, multiplanar T1, T2 and FLAIR imaging obtained. No evidence for acute infarct or hemorrhage. Vasquez-white matter differentiation is normal. Moderate volume loss as noted on the prior examination. No significant progression of small vessel di sease. There is more focal volume loss in the parasagittal frontal lobes which is probably due to tra haven. Very similar to the prior study. Mildly prominent ventricles and extra-axial spaces on the basis of central and peripheral atrophy. No inferior displacement of cerebellar tonsils. The sella turcica and pituitary gland are unremarkabl e. Dural venous sinuses and [place] of [place] demonstrate no abnormality on this unenhanced studies. Paranasal sinuses: Moderate mucoperiosteal thickening LEFT maxillary sinus. No air-fluid levels. Mastoid air cells: Normal. Calvarium and scalp: Intact. IMPRESSION: 1. Normal diffusion imaging. No acute infarct. 2. No progression of the moderate parenchymal volume loss and mild small vessel ischemic disease. Si milar to 08/08/2020. 3. Moderate mucoperiosteal disease LEFT maxillary sinus.
== END 2023-05-28 07:11 | disposition home or self-care (01) ==
PROVIDERS: PCP Internal Medicine; Visit Provider Internal Medicine Nephrology
DX: R41.3 Other amnesia (principal); Z94.0 Kidney transplant status; I67.89 Other cerebrovascular disease; J32.0 Chronic maxillary sinusitis
CPT/HCPCS: 70551

== ENCOUNTER → 2023-06-06 14:25 | Outpatient (BNVA) | payer MEDICARE, OTHER, SELFPAY | PROVIDERS: PCP Internal Medicine; Visit Provider Internal Medicine | DX: R06.02 Shortness of breath (principal); R00.2 Palpitations; Z94.0 Kidney transplant status; N05.1 Unspecified nephritic syndrome with focal and segmental glomerular lesions; I10 Essential (primary) hypertension | CPT/HCPCS: 99204 ==

== ENCOUNTER 2023-06-13 09:57 | Outpatient (CLI) | payer MEDICARE, OTHER, SELFPAY ==
--- NOTE | 2023-06-13 10:00 | USCV_ITS ---
Mark Mccabe Age: 58 Gender: M : 1965 Exam Date: 06/13/2023 10:25 Ordering Phys: David Gonzales M.D ([email or web address]) Technologist: Trinidad Peterson Exam Location: [facility] [place] Indication: SOB BP: 120 / 60 HR: 59 Rhythm: Sinus Technical Quality: Adequate MEASUREMENTS (Male / Female) Normal Values 2D ECHO LV Diastolic Diameter PLAX 3.7 cm 4.2 - 5.9 / 3.9 - 5.3 cm LV Systolic Diameter PLAX 3.2 cm LV Chamber Size 4.3 cm IVS Diastolic Thickness 1.5 cm 0.6 - 1.0 / 0.6 - 0.9 cm IVS Systolic Thickness 1.6 cm LVPW Diastolic Thickness 1.9 cm 0.6 - 1.0 / 0.6 - 0.9 cm LVPW Systolic Thickness 1.9 cm RV Chamber Size 3.7 cm LVOT Diameter 2.0 cm LV Ejection Fraction 2D Teich 13.0 % LV Ejection Fraction MOD 2C 66.7 % LV Ejection Fraction 2C AL 67.0 % LA Diameter 4.3 cm LA Width 2.7 cm LA Height 3.6 cm RA Width 4.3 cm RA Height 4.2 cm Aorta at Sinotubular Diameter 3.0 cm IVC Diameter 2.5 cm M-MODE Aortic Annulus Diameter 3.3 cm LA Ao Ratio MM 1.6 MV E Point Septal Separation 0.9 cm DOPPLER AV Peak Velocity 222.0 cm/s LVOT Peak Velocity 87.0 cm/s AV Area Cont Eq vti 1.5 cm squared AV Area Cont Eq pk 1.2 cm squared MV Area PHT 2.4 cm squared Mitral E to A Ratio 0.8 MV E' Velocity 41.0 cm/s Mitral E to MV E' Ratio 6.7 Mitral E to LV E' Lateral Ratio 5.9 Mitral E to LV E' Septal Ratio 7.7 TR Peak Velocity 255.4 cm/s TR Peak Gradient 26.1 mmHg TR Mean Velocity 208.7 cm/s TR Mean Gradient 18.0 mmHg TR Velocity Time Integral 80.9 cm TV Peak E Velocity 75.0 cm/s Right Atrial Pressure 3.0 mmHg Pulmonary Artery Systolic Pressu 29.1 mmHg RV Acceleration Time 0.3 s RV Ejection Time 0.4 s RV AcT/ET 0.6 FINDINGS Left Ventricle Left ventricle is normal in size. LV systolic function is normal with EF of 55-60%. No regional wall motion abnormalities are seen. Grade 1 diastolic dysfunction Right Ventricle The right ventricle is normal in size and function. Right Atrium The right atrium is normal in size. Left Atrium The left atrium is normal in size. Mitral Valve Structurally normal mitral valve. There is no mitral regurgitation. Aortic Valve Grossly normal. Mild aortic stenosis with aortic valve area 1.46 cm squared and mean gradient across aortic valve of 11 mmHg. Tricuspid Valve Mild tricuspid regurgitation. Pulmonary artery systolic pressure is normal Pulmonic Valve Not well visualized Pericardium Normal pericardium without effusion. Aorta Mildly dilated ascending aorta with diameter of 3.76cm IVC Not well visualized CONCLUSIONS LV systolic function is normal with EF of 55-60%. Grade 1 diastolic dysfunction Mild aortic stenosis with aortic valve area 1.46 cm squared and mean gradient across aortic valve of 11 mmHg. Mild tricuspid regurgitation. Mildly dilated ascending aorta with diameter of 3.76cm Compared to prior echocardiogram from 2018, patient now has mild aortic stenosis, mildly dilated ascending aorta David Gonzales MD (Electronically Signed) Final Date: 15 June 2023 13:26 S
== END 2023-06-13 09:58 | disposition home or self-care (01) ==
PROVIDERS: PCP Internal Medicine; Visit Provider Internal Medicine
DX: I08.2 Rheumatic disorders of both aortic and tricuspid valves (principal); R06.02 Shortness of breath
CPT/HCPCS: 93306

== ENCOUNTER 2023-12-11 07:51 | Emergency (ER) | payer MEDICARE, OTHER, SELFPAY ==
--- NOTE | 2023-12-11 07:56 | ECG_ITS ---
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 Measurements Intervals [place] Rate: 92 P: 40 CO: 182 QRS: -28 QRSD: 112 T: 90 QT: 345 QTc: 429 Interpretive Statements SINUS RHYTHM BORDERLINE LEFT AXIS DEVIATION [QRS AXIS < -20] LEFT VENTRICULAR HYPERTROPHY AND ST-T CHANGE [VOLTAGE CRITERIA PLUS ST/T ABNORMALITY] Compared to ECG 05/26/2023 02:01:40 Supraventricular tachycardia no longer present Left anterior fascicular block no longer present ST (T wave) deviation still present Electronically Signed On 12-11-2023 15:27:00 CDT by Jesus Rocha M.D. [id number]
--- NOTE | 2023-12-11 08:07 | ED_ITS ---
HPI - Abdominal Pain 2 General: Chief Complaint: Abdominal Pain Stated Complaint: Abd pain Time Seen by Provider: 12/11/23 07:53 Source: patient Mode of arrival: ambulatory History of Present Illness: 58-year-old male presents emergency room complaining of LLQ abdominal pain that began overnight. Patient had an episode of vomiting associated with it denies hematochezia melena hematemesis coffee-ground emesis no diarrhea in fact states actually been little bit constipated. Patient has a history of focal segmental glomerular nephrosis he was on peritoneal dialysis then hemodialysis for time received a kidney transplant about 2 years ago. He is having some problems with his proteinuria now after this kidney transplant they are using his fistula to do plasmapheresis. He is diabetic as well. He has no known history of nephrolithiasis he denies any dysuria urgency or frequency. No change in urinary output. MD elicited complaint: abdominal pain Onset (ago): day(s) (1) Pain Consistency: constant Location: LLQ Severity: mild Quality: sharp Radiation: other (Left groin) Exacerbating factors: nothing Relieving factors: nothing Associated Symptoms: Reports constipation, GI cramping, nausea, poor appetite and vomiting; Denies anorexia, belching, bloating, change in bowel habits, change in stool character, chills, coffee ground emesis, diarrhea, dyspepsia, dysuria, excessive flatus, fever(s), heartburn, hematochezia, hematuria, hematemesis, fecal incontinence, loose stools, melena and syncope Review of Systems 2 Const: Denies: fever(s) or chills Card: Denies: chest pain or syncope Resp: Denies: dyspnea GI: Reports: abdominal pain, nausea, vomiting, constipation and GI cramping; Denies: hematemesis, coffee ground emesis, heartburn, diarrhea, bloating, belching, excessive flatus, fecal incontinence, change in bowel habits, change in stool character, hematochezia or melena : Denies: dysuria, urinary frequency, urinary urgency or hematuria Musc: Denies: neck pain or back pain Skin/Breast: Denies: rash 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 Carpal tunnel syndrome, bilateral upper limbs Surgical History Hx of colonoscopy less than 1 year, no polyps History of esophagogastroduodenoscopy (EGD) less than 1 year History of bilateral carpal tunnel release History of right breast biopsy for benign disease History of thoracotomy with chest tube, for pneumonia History of kidney transplant (09/2021) History of cholecystectomy History of umbilical hernia repair History of arthroscopic knee surgery x 3 History of arthroscopy of right shoulder Family History Father CAD (coronary artery disease) Chronic kidney disease (CKD) Mother Arthritis Other Diabetes Hyperlipidemia Hypertension Denies family history of Clotting disorder Dementia Psychiatric illness Suicide Anesthesia complication Bleeding disorder Lung disease Cancer Stroke Social History Smoking and tobacco/nicotine status: former use of tobacco/nicotine (Smoked for 15 years) Alcohol intake: never Substance/Drug Use: never Household members: spouse Marital status: Current occupational status: disabled Physical Exam 2 Const: GENERAL APPEARANCE: cooperative and comfortable O RIENTATION/CONSCIOUSNESS: Yes awake, Yes oriented to person, Yes oriented to place and Yes oriented to time HENMT: COMMON NORMALS: normocephalic, atraumatic and hearing grossly normal bilaterally HEAD & SCALP: normocephalic and atraumatic Resp: COMMON NORMALS: normal respiratory effort, No retractions, No use of accessory muscles and clear to auscultation bilaterally AUSCULTATION: clear to auscultation bilaterally Cardio: COMMON NORMALS: regular rate, regular rhythm and No murmurs present (Cardio) RATE: regular rate RHYTHM: regular rhythm GI: COMMON NORMALS: Soft to palpation and No hepatosplenomegaly present A USCULTATION: Yes normoactive bowel sounds PALPATION: Yes Soft to palpation, No Tenderness to palpation present (GI), No Guarding due to palpation present (GI) and Yes No hepatosplenomegaly present Extremity: COMMON NORMALS: normal to inspection, capillary refill normal, no clubbing, cyanosis or edema, no calf tenderness and no pedal edema Neuro: SENSORIUM/ORIENTATION: Yes oriented to person, Yes oriented to place and Yes oriented to time Skin: COMMON NORMALS: no rashes or lesions noted GENERAL SKIN EXAM: no rashes or lesions noted Course 2 Vital Signs: Vital signs: Vital Signs Temperature 99.4 F 12/11/23 08:08 Pulse Rate 81 12/11/23 09:12 Respiratory Rate 12/11/23 09:49 Blood Pressure 137/86 12/11/23 09:12 Pulse Oximetry 100 12/11/23 09:49 Oxygen Delivery Me thod Room Air 12/11/23 08:42 MDM - Abdominal Pain Medical Decision Making CT of the abdomen shows colitis urine was negative. He has relative anemia secondary to his chronic renal issues but is at his baseline no leukocytosis. Discharged home on Augmentin 875 twice daily for 10 days follow-up with his primary care doctor. No sign of cystitis on urine. Differential Diagnosis Likely abdominal pain, calculus of kidney, gastroenteritis and small bowel obstruction Medical Records I reviewed the patient's medical records. Lab Data I reviewed the patient's lab results. 12/11/23 08:21 12/11/23 08:21 Labs/Radiology: Radiology Impressions Abdomen/Pelvis CT 12/11/23 08:11 IMPRESSION: 1. Mild wall thickening and inflammatory change of the sigmoid colon. Findings are suggestive of colitis. 2. Atrophic resighini kidneys. Transplant kidney in the right hemipelvis. 3. Status post cholecystectomy and appendectomy surgical change Laboratory Results WBC 9.04 10^3/uL (3.29-11.43) 12/11/23 08:21 RBC 3.78 10^6/uL (3.85-5.65) L 12/11/23 08:21 Hgb 10.60 g/dL (11.27-16.99) L 12/11/23 08:21 Hct 33.9 % (37-53) L 12/11/23 08:21 MCV 89.7 fl (82-101) 12/11/23 08:21 MCH 28.0 pg (27-33) 12/11/23 08:21 MCHC 31.3 g/dL (30-55) 12/11/23 08:21 RDW 15.0 % (12.1-15.1) 12/11/23 08:21 Plt Count 181 10^3/cmm (157-399) 12/11/23 08:21 MPV 8.5 fL (7.4-10.4) 12/11/23 08:21 Neut % (Auto) 72.3 % 12/11/23 08:21 Lymph % (Auto) 11.2 % 12/11/23 08:21 Randolph % (Auto) 15.4 % 12/11/23 08:21 Eos % (Auto) 0.4 % 12/11/23 08:21 Baso % (Auto) 0.1 % 12/11/23 08:21 Neut # (Auto) 6.54 10^3/uL (1.8-7.7) 12/11/23 08:21 Lymph # (Auto) 1.0 10^3/uL (0.8-4.8) 12/11/23 08:21 Randolph # (Auto) 1.4 10^3/uL (0.2-0.9) H 12/11/23 08:21 Eos # (Auto) 0.0 10^3/uL (0.0-0.8) 12/11/23 08:21 Baso # (Auto) 0.0 10^3/uL (0.0-0.1) 12/11/23 08:21 Nucleated RBC % (auto) 0 % 12/11/23 08:21 Nucleated RBCs # 0.0 /100WBC 12/11/23 08:21 Sodium 134 mmol/L (136-145) L 12/11/23 08:21 Potassium 4.3 mmol/L (3.5-5.1) 12/11/23 08:21 Chloride 104 mmol/L (98-107) 12/11/23 08:21 Carbon Dioxide 20 mmol/L (22-29) L 12/11/23 08:21 Anion Gap 14.3 (5-19) 12/11/23 08:21 BUN 17 mg/dL (6-20) 12/11/23 08:21 Creatinine 1.7 mg/dL (0.7-1.2) H 12/11/23 08:21 GFR Calculation 41.8 mL/min (90-130) L 12/11/23 08:21 Glucose 114 mg/dL (65-115) 12/11/23 08:21 Calculated Osmolality 280 mOsm/kg (285-295) L 12/11/23 08:21 Calcium 9.1 mg/dL (8.5-10.5) 12/11/23 08:21 Total Bilirubin 0.8 mg/dL (0.15-1.2) 12/11/23 08:21 AST 14 U/L (0-40) 12/11/23 08:21 ALT 6 U/L (0-41) 12/11/23 08:21 Alkaline Phosphatase 48 U/L (40-130) 12/11/23 08:21 Total Protein 6.0 g/dL (6.6-8.7) L 12/11/23 08:21 Albumin 4.6 g/dL (3.5-5.2) 12/11/23 08:21 Globulin 1.4 g/dL (1.3-4.6) 12/11/23 08:21 Lipase 29 U/L (13-60) 12/11/23 08:21 Urine Color Yellow (Yellow) 12/11/23 09:06 Urine Appearance Clear (CLEAR) 12/11/23 09:06 Urine pH 5 (5-7) 12/11/23 09:06 Ur Specific Jackson 1.015 (1.005-1.030) 12/11/23 09:06 Urine Protein 3+ (Negative) H 12/11/23 09:06 Urine Glucose (UA) 2+ (Normal) H 12/11/23 09:06 Urine Ketones Negative (Negative) 12/11/23 09:06 Urine Blood 2+ (Negative) H 12/11/23 09:06 Urine Nitrate Negative (Negative) 12/11/23 09:06 Urine Bilirubin Neg (Negative) 12/11/23 09:06 Urine Urobilinogen Norm mg/dL (Negative) 12/11/23 09:06 Ur Leukocyte Esterase Negative (Negative) 12/11/23 09:06 Urine RBC 0-4 /hpf (0-2) H 12/11/23 09:06 Urine WBC 0-4 /hpf (0-5) H 12/11/23 09:06 Ur Squamous Epith Cells 0-4 /hpf (0-5) H 12/11/23 09:06 Ur Transition Epith Cell 0-4 /hpf 12/11/23 09:06 Amorphous Sediment Not Reportable 12/11/23 09:06 Urine Bacteria Trace /hpf (NONE) 12/11/23 09:06 Hyaline Casts 5-10 /lpf H 12/11/23 09:06 Urine Mucus 1+ /hpf 12/11/23 09:06 All radiology interpretation(s) finalized by discharge Discharge Plan Discharge Patient Disposition: Home Clinical Impression: Colitis Condition: Stable Prescriptions: New amoxicillin-pot clavulanate 875-125 mg tablet 1 tab PO BID Qty: 14 0RF No Action tamsulosin 0.4 mg capsule 0.4 mg PO DAILY fluticasone propionate 50 mcg/actuation spray,suspension 1 - 2 spray INTRANASAL DAILY cholecalciferol (vitamin D3) 25 mcg (1,000 unit) capsule 25 mcg PO BID hydromorphone 4 mg tablet 4 mg PO Q4H PRN (Reason: Pain) famotidine 20 mg tablet 20 mg PO BID Jardiance 25 mg tablet 25 mg PO DAILY ferrous sulfate 325 mg (65 mg iron) tablet 325 mg PO DAILY calcium polycarbophil 625 mg tablet 625 mg PO DAILY filgrastim 480 mcg/1.6 mL solution 480 mcg SUBCUT DAILY PRN (Reason: UNKNOWN) cyanocobalamin (vitamin B-12) 1,000 mcg capsule 1,000 mcg PO DAILY acetaminophen 325 mg capsule 650 mg PO Q6H PRN (Reason: Pain) loperamide 2 mg capsule 2 mg PO QID PRN (Reason: Diarrhea) tizanidine 2 mg capsule 2 mg PO BEDTIME PRN (Reason: Pain) atorvastatin 10 mg tablet 10 mg PO DAILY gabapentin 100 mg Capsule 100 mg PO EVERY OTHER DAY pantoprazole [Protonix] 40 mg tablet,delayed release (DR/EC) 40 mg PO BID 42 Days Qty: 84 1RF mycophenolate sodium 360 mg tablet,delayed release (DR/EC) 360 mg PO BID duloxetine 40 mg capsule,delayed release(DR/EC) 40 mg PO DAILY Envarsus XR 1 mg tablet extended release 24 hr 3 mg PO .EVERY OTHER DAY albuterol sulfate 90 mcg/actuation HFA aerosol inhaler 2 puff INHALATION Q6H PRN (Reason: Wheezing) ipratropium bromide 42 mcg (0.06 %) spray,non-aerosol 2 spray INTRANASAL QID PRN (Reason: ALLERGIES) finasteride 5 mg tablet 5 mg PO DAILY vitamin B62-vjsfl acid 500-400 mcg Tablet 1 tab PO DAILY Rx Instructions: administer with a meal prednisone 5 mg tablet 5 mg PO DAILY diphenoxylate-atropine 2.5-0.025 mg tablet 2 tab PO DAILY PRN (Reason: Diarrhea) artificial tears(hypromellose) 0.3 % Drops 1 drp OPHTHALMIC (EYE) DAILY PRN (Reason: Itching) losartan 50 mg Tablet 50 mg PO DAILY ondansetron 4 mg Tablet,Disintegrating 4 mg PO Q8H PRN (Reason: Nausea And Vomiting) Veltassa 16.8 gram Powder In Packet 16.8 g PO BID PRN (Reason: Hyperkalemia) metoprolol tartrate 25 mg tablet 12.5 mg PO Q12H Qty: 30 0RF Discharge Orders: Discharge ED (Routine); Ordered 12/11/23 Ordered By: Franky Owens Referrals: Jhony Kaur, [Primary Care Provider] - Discharge Diet: Clear Liquid Discharge Activity: Increase activity as tolerated Patient Instructions: Opioid Safety, Pain Management Activity Restrictions/Additional Instructions: Thank you for choosing [facility] for your healthcare needs today. Please realize this is an emergency room and that we are providing you with a medical screening exam and this may not be complete and all inclusive of all the testing and or work up that you may need to determine your ailment or severity of your illness. It is very important that you follow up as instructed or that you return to the Emergency Department should you have concerns or if your condition changes or worsens in any way. You are seen today for abdominal discomfort. Your white count was normal CT shows some mild dilatation of occult colon (colitis). Recommend you start Augmentin 875 1 pill twice a day for the colitis. This should not cause any adverse effects to your colon. If your symptoms worsen rechecked in the emergency room. Coding Level of Care Code ED Farm Consultant for Audrey Almanza
[2023-12-11 08:08] VITALS: BP 140/94; PULSE 97; TEMP 37.4; O2SAT 100; BMI 26.6
--- NOTE | 2023-12-11 08:11 | CTR_ITS ---
PROCEDURE INFORMATION: Exam: CT Abdomen And Pelvis Without Contrast Exam date and time: 12/11/2023 8:44 AM Age: 58 years old Clinical indication: Abdominal pain; Localized; Left lower quadrant (llq); Prior surgery; Surgery date: 6+ months; Surgery type: Hernia, kidney transplant, gb, appy; Additional info: Abdominal pain llq TECHNIQUE: Imaging protocol: Computed tomography of the abdomen and pelvis without contrast. Radiation optimization: All CT scans at this facility use at least one of these dose optimization techniques: automated exposure control; mA and/or kV adjustment per patient size (includes targeted exams where dose is matched to clinical indication); or iterative reconstruction. COMPARISON: CT abdomen pelvis wo con [id number] 03/19/2023 2:03 PM RADIATION DOSE METRICS: Total DLP (mGy-cm): 775.32 FINDINGS: Liver: Normal. No mass. Gallbladder and bile ducts: Gallbladder is surgically removed. The gallbladder is surgically removed Pancreas: Normal. No ductal dilation. Spleen: Normal. No splenomegaly. Adrenal glands: Normal. No mass. Kidneys and ureters: Atrophy of the [place] kidney. No hydronephrosis. Transplant kidney in the right hemipelvis. Stomach and bowel: Focal area of wall thickening and inflammatory change in the sigmoid colon. Findings are suggestive of colitis.. Appendix: Appendix surgically removed. Intraperitoneal space: Unremarkable. No free air. No significant fluid collection. Vasculature: Mild atherosclerotic change of the abdominal vasculature Lymph nodes: Unremarkable. No enlarged lymph nodes. Urinary bladder: Unremarkable as visualized. Reproductive: Unremarkable as visualized. Bones/joints: Unremarkable. No acute fracture. Soft tissues: Unremarkable. CT/CT abdomen pelvis wo con [id number] IMPRESSION: 1. Mild wall thickening and inflammatory change of the sigmoid colon. Findings are suggestive of colitis. 2. Atrophic [place] kidneys. Transplant kidney in the right hemipelvis. 3. Status post cholecystectomy and appendectomy surgical change
[2023-12-11 08:27] LABS: Basophils % 0.1 %; Eosinophils % 0.4 %; Hematocrit 33.9 % (37-53); Lymphocytes % 11.2 %; Mean Corpuscular HGB Conc 31.3 g/dL (30-55); Mean Corpuscular Volume 89.7 fl (82-101); Mean Platelet Volume 8.5 fL (7.4-10.4); Monocytes # 1.4 10^3/uL (0.2-0.9); Monocytes % 15.4 %; Neutrophils # 6.54 10^3/uL (1.8-7.7); Neutrophils % 72.3 %; Nucleated Red Blood Cells % 0 %; Platelet Count 181 10^3/cmm (157-399); Red Blood Count 3.78 10^6/uL (3.85-5.65); White Blood Count 9.04 10^3/uL (3.29-11.43)
[2023-12-11 08:42] VITALS: PULSE 88; O2SAT 97
[2023-12-11 08:45] LABS: Alanine Aminotransferase 6 U/L (0-41); Albumin Level 4.6 g/dL (3.5-5.2); Alkaline Phosphatase 48 U/L (40-130); Anion Gap 14.3 (5-19); Aspartate Amino Transferase 14 U/L (0-40); Blood Urea Nitrogen 17 mg/dL (6-20); Calcium 9.1 mg/dL (8.5-10.5); Carbon Dioxide 20 mmol/L (22-29); Chloride 104 mmol/L (98-107); Globulin 1.4 g/dL (1.3-4.6); Glomerular Filtration Rate 41.8 mL/min (90-130); Glucose 114 mg/dL (65-115); Lipase 29 U/L (13-60); Osmolality Calculated 280 mOsm/kg (285-295); Potassium 4.3 mmol/L (3.5-5.1); Sodium 134 mmol/L (136-145); Total Bilirubin 0.8 mg/dL (0.15-1.2)
[2023-12-11 09:12] VITALS: BP 137/86; PULSE 81; O2SAT 99
[2023-12-11] MEDS: sodium chloride 0.9% 1,000 ML 999 ML IV (09:48)
[2023-12-11 09:49] VITALS: RESP 17; O2SAT 100
[2023-12-11] MEDS: ondansetron 2 mg/ML SDV 2 mL 4 MG IVP (09:49)
[2023-12-11] MEDS: morphine 4 mg/mL SDV 1 mL IVP (09:49)
[2023-12-11 09:50] LABS: Protein Urine 3+ (Negative); Specific Gravity, Urine 1.015 (1.005-1.030); Urine Appearance Clear (CLEAR); Urine Color Yellow (Yellow); pH Urine 5 (5-7)
[2023-12-11 09:51] LABS: Add Urine Microscopic? YES; Bilirubin Urine Neg (Negative); Blood Urine 2+ (Negative); Glucose Urine UA 2+ (Normal); Ketones Urine Negative (Negative); Leukocyte Esterase Urine Negative (Negative); Nitrate Urine Negative (Negative); Urobilinogen Urine Norm (Negative)
[2023-12-11 09:56] LABS: Add Urine Culture? No; Bacteria Urine TRACE /hpf; Mucus Urine 1+ /hpf; RBC Urine 0-4 /hpf (0-2); Squamous Epithelial Cell Urine 0-4 /hpf (0-5); Transitional Epi Cells Urine 0-4 /hpf; WBC Urine 0-4 /hpf (0-5)
== END 2023-12-11 10:45 | disposition home or self-care (01) ==
PROVIDERS: Emergency Provider Family Medicine; PCP Internal Medicine
DX: K52.9 Noninfective gastroenteritis and colitis, unspecified (principal); Z87.891 Personal history of nicotine dependence; Z94.0 Kidney transplant status; E78.5 Hyperlipidemia, unspecified; I12.0 Hypertensive chronic kidney disease with stage 5 chronic kidney disease or end stage renal disease; N18.6 End stage renal disease
CPT/HCPCS: 36415; 74176; 80053; 81001; 83690; 85025; 93005; 96374; 96375; 99285; J2270; J2405; J7030

== ENCOUNTER 2024-01-22 07:42 | Emergency (ER) | payer MEDICARE, OTHER, SELFPAY ==
[2024-01-22] VITALS (36 sets, daily range): BP systolic 68–119; BP diastolic 37–72; PULSE 60–112; RESP 14–35; TEMP 36.8; O2SAT 69–100; BMI 26.7
--- NOTE | 2024-01-22 07:55 | XR_ITS ---
WS: [id number] Exam: XR chest 1V portable [id number] Date/Time of Exam: 01/22/2024 8:00 AM Reason For Exam: dyspnea/cough Comparison 08/26/2022. Lungs are clear and fully expanded. Normal cardiomediastinal silhouette. Advanced degenerative change s of the RIGHT shoulder with high riding humeral head probably indicating rotator cuff degeneration. High riding LEFT humeral head also. XR/XR chest 1V portable [id number] IMPRESSION: 1. No acute cardiopulmonary finding.
[2024-01-22 08:17] LABS: Basophils % 0.2 %; Eosinophils % 0.4 %; Hematocrit 31.9 % (37-53); Lymphocytes % 21.6 %; Mean Corpuscular HGB Conc 31.3 g/dL (30-55); Mean Corpuscular Hemoglobin 27.9 pg (27-33); Mean Corpuscular Volume 88.9 fl (82-101); Mean Platelet Volume 9.8 fL (7.4-10.4); Monocytes # 0.5 10^3/uL (0.2-0.9); Monocytes % 10.9 %; Neutrophils # 3.05 10^3/uL (1.8-7.7); Neutrophils % 66.7 %; Nucleated Red Blood Cells % 0 %; Platelet Count 86 10^3/cmm (157-399); Red Blood Count 3.59 10^6/uL (3.85-5.65); Red Cell Distribution Width 15.5 % (12.1-15.1); White Blood Count 4.58 10^3/uL (3.29-11.43)
[2024-01-22 08:29] LABS: Alanine Aminotransferase 22 U/L (0-41); Albumin Level 3.9 g/dL (3.5-5.2); Alkaline Phosphatase 87 U/L (40-130); Anion Gap 16.4 (5-19); Aspartate Amino Transferase 32 U/L (0-40); Blood Urea Nitrogen 32 mg/dL (6-20); Calcium 8.5 mg/dL (8.5-10.5); Carbon Dioxide 13 mmol/L (22-29); Chloride 107 mmol/L (98-107); Globulin 1.5 g/dL (1.3-4.6); Glomerular Filtration Rate 22.5 mL/min (90-130); Glucose 133 mg/dL (65-115); Lipase 76 U/L (13-60); Osmolality Calculated 283 mOsm/kg (285-295); Potassium 4.4 mmol/L (3.5-5.1); Sodium 132 mmol/L (136-145); Total Protein 5.4 g/dL (6.6-8.7)
[2024-01-22] MEDS: sodium chloride 0.9% 1,000 ML 999 ML IV (08:46)
[2024-01-22] MEDS: ondansetron 2 mg/ML SDV 2 mL 4 MG IVP (08:48)
--- NOTE | 2024-01-22 08:53 | ED_ITS ---
HPI - Nausea/Vomiting/Diarrhea 2 General: Chief complaint: Nausea/Vomiting/Diarrhea Stated complaint: headache, diarrhea, n/v, cough, fever Time Seen by Provider: 01/22/24 07:53 Source: patient Mode of arrival: ambulatory History of Present Illness: 58-year-old male who [facility] headache diarrhea nausea vomiting cough. Has had a low-grade fever at home this began 2 days ago he has some abdominal pain as well. Patient has a history of focal sclerosing glomerulonephritis had previously been on dialysis in about 2 years ago received a kidney transplant. He has not changed any of his medications recently. He still gets plasmapheresis to try to protect the donor kidney. They had noticed decreased urine output for the last 2 days as well. No recent medication changes. He is had nausea vomiting and diarrhea denies any hematochezia melena hematemesis or coffee-ground emesis. MD elicited complaint: nausea and vomiting Onset (ago): day(s) (2) Description of vomiting: watery and bilious Description of diarrhea: semi-solid Associated nausea: Yes Associated abdominal pain: Yes Location of pain: Diffuse Quality: cramping Exacerbating factors: none Relieving factors: none Associated symtoms: Reports nausea; Denies altered mental status, anxiety, bloating, change in vision, chest pain, cough, diaphoresis, decreased urine output, dizziness, dysuria, epistaxis, fatigue, fecal incontinence, fevers/chills, headache(s), anorexia, malaise, myalgias, numbness, palpitations, rash, short of breath, syncope, tenesmus, tinnitus or weakness Review of Systems 2 Const: Denies: fever(s), chills, fatigue, malaise or diaphoresis Eyes: Denies: change in vision ENMT: Denies: tinnitus or epistaxis Card: Denies: chest pain, palpitations or syncope Resp: Denies: dyspnea GI: Reports: abdominal pain and nausea; Denies: bloating or fecal incontinence : Denies: flank pain, dysuria, urinary frequency or urinary urgency Musc: Denies: neck pain or back pain Skin/Breast: Denies: rash Neuro: Denies: headache(s) or dizziness Psych: Denies: anxiety 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 Carpal tunnel syndrome, bilateral upper limbs Surgical History Hx of colonoscopy less than 1 year, no polyps History of esophagogastroduodenoscopy (EGD) less than 1 year History of bilateral carpal tunnel release History of right breast biopsy for benign disease History of thoracotomy with chest tube, for pneumonia History of kidney transplant (09/2021) History of cholecystectomy History of umbilical hernia repair History of arthroscopic knee surgery x 3 History of arthroscopy of right shoulder Family History Father CAD (coronary artery disease) Chronic kidney disease (CKD) Mother Arthritis Other Diabetes Hyperlipidemia Hypertension Denies family history of Clotting disorder Dementia Psychiatric illness Suicide Anesthesia complication Bleeding disorder Lung disease Cancer Stroke Social History Smoking and tobacco/nicotine status: former use of tobacco/nicotine (Smoked for 15 years) Alcohol intake: never Substance/Drug Use: never Household members: spouse Marital status: Current occupational status: disabled Physical Exam 2 Const: EXAM LIMITATIONS: no altered mental status GENERAL APPEARANCE: c ooperative and comfortable ORIENTATION/CONSCIOUSNESS: Yes awake, Yes oriented to person, Yes oriented to place and Yes oriented to time HENMT: COMMON NORMALS: normocephalic, atraumatic and hearing grossly normal bilaterally HEAD & SCALP: normocephalic and atraumatic Resp: COMMON NORMALS: normal respiratory effort, No retractions, No use of accessory muscles and clear to auscultation bilaterally AUSCULTATION: clear to auscultation bilaterally Cardio: COMMON NORMALS: regular rate, regular rhythm and No murmurs present (Cardio) RATE: regular rate RHYTHM: regular rhythm GI: COMMON NORMALS: Soft to palpation and No hepatosplenomegaly present A USCULTATION: Yes normoactive bowel sounds PALPATION: Yes Soft to palpation, No Tenderness to palpation present (GI), No Guarding due to palpation present (GI) and Yes No hepatosplenomegaly present Extremity: COMMON NORMALS: normal to inspection, capillary refill normal, no clubbing, cyanosis or edema, no calf tenderness and no pedal edema Neuro: SENSORIUM/ORIENTATION: Yes oriented to person, Yes oriented to place and Yes oriented to time Skin: COMMON NORMALS: no rashes or lesions noted GENERAL SKIN EXAM: no rashes or lesions noted Procedures Central Line Placement Right SC: Time Out Performed: Yes Patient Placed on Monitor/Pulse Ox: Yes MD Prep: mask, gown and gloves Central Line Prep: Chlorhexidine scrub Local Anesthetic: lidocaine 1% Amount of anesthesia used (mL): 5 Ultrasound Used for Placement: Yes Central Line Lumen Inserted: triple Post Procedure: sutured in place, good blood return, all ports aspirated, flushed, capped and sterile dressing applied Post Procedure X-Ray: tip of catheter in good position Patient Tolerated Procedure: well Complications: none Additional Comments: Placed from a proximal supraclavicular approach using ultrasound guidance Course 2 Vital Signs: Vital signs: Vital Signs Temperature 98.2 F 01/22/24 08:24 Pulse Rate 88 01/22/24 17:10 Respiratory Rate 21 H 01/22/24 17:10 Blood Pressure 104/62 01/22/24 17:15 Pulse Oximetry 69 L 01/22/24 17:15 Oxygen Delivery Me thod Room Air 01/22/24 08:24 MDM - Nausea/Vomiting/Diarrhea Medical Decision Making Patient hypotensive despite aggressive fluid rehydration. We initially contacted his transplant team they recommended transfer to [facility] in [place] where he been before. Unfortunately both [facility] and [facility] did not have any beds available. We contacted the transplant team again and they agreed to take the patient on transfer. Discussed with her chair maker on the renal transplant team they recommended several things. Stool cultures and C. difficile were done patient was given a sodium bicarb drip of isotonic saline. Central line was started and patient was changed from dopamine with discharge initially for pressure support after fluid boluses had failed and started on Levophed instead. Additionally she was started on cefepime at the recommendation. Transferred via ambulance in stable condition Medical Records I reviewed the patient's medical records. Lab Data I reviewed the patient's lab results. 01/22/24 08:00 01/22/24 08:00 Radiology Impressions Abdomen/Pelvis CT 01/22/24 08:54 IMPRESSION: 1. No acute findings in the abdomen or pelvis. 2. Prior cholecystectomy and appendectomy. 3. Atrophic circle kidneys. 4. Kidney transplant RIGHT hemipelvis. 5. Previously described colitis in the sigmoid colon has resolved. 6. Normal caliber abdominal aorta. 7. Avascular necrosis in the femoral heads. No subchondral collapse. Chest X-Ray 01/22/24 15:28 IMPRESSION: 1. Right-sided subclavian central line extending into the RIGHT atrium. The line could be retracted approximately 3 to 4 cm for positioning in the region of the cavoatrial junction if so desired.. 2. No acute cardiopulmonary finding. Laboratory Results WBC 4.58 10^3/uL (3.29-11.43) 01/22/24 08:00 RBC 3.59 10^6/uL (3.85-5.65) L 01/22/24 08:00 Hgb 10.00 g/dL (11.27-16.99) L 01/22/24 08:00 Hct 31.9 % (37-53) L 01/22/24 08:00 MCV 88.9 fl (82-101) 01/22/24 08:00 MCH 27.9 pg (27-33) 01/22/24 08:00 MCHC 31.3 g/dL (30-55) 01/22/24 08:00 RDW 15.5 % (12.1-15.1) H 01/22/24 08:00 Plt Count 86 10^3/cmm (157-399) L 01/22/24 08:00 MPV 9.8 fL (7.4-10.4) 01/22/24 08:00 Neut % (Auto) 66.7 % 01/22/24 08:00 Lymph % (Auto) 21.6 % 01/22/24 08:00 [place] % (Auto) 10.9 % 01/22/24 08:00 Eos % (Auto) 0.4 % 01/22/24 08:00 Baso % (Auto) 0.2 % 01/22/24 08:00 Neut # (Auto) 3.05 10^3/uL (1.8-7.7) 01/22/24 08:00 Lymph # (Auto) 1.0 10^3/uL (0.8-4.8) 01/22/24 08:00 [place] # (Auto) 0.5 10^3/uL (0.2-0.9) 01/22/24 08:00 Eos # (Auto) 0.0 10^3/uL (0.0-0.8) 01/22/24 08:00 Baso # (Auto) 0.0 10^3/uL (0.0-0.1) 01/22/24 08:00 Nucleated RBC % (auto) 0 % 01/22/24 08:00 Nucleated RBCs # 0.0 /100WBC 01/22/24 08:00 Sodium 132 mmol/L (136-145) L 01/22/24 08:00 Potassium 4.4 mmol/L (3.5-5.1) 01/22/24 08:00 Chloride 107 mmol/L (98-107) 01/22/24 08:00 Carbon Dioxide 13 mmol/L (22-29) L 01/22/24 08:00 Anion Gap 16.4 (5-19) 01/22/24 08:00 BUN 32 mg/dL (6-20) H 01/22/24 08:00 Creatinine 2.9 mg/dL (0.7-1.2) H 01/22/24 08:00 GFR Calculation 22.5 mL/min (90-130) L 01/22/24 08:00 Glucose 133 mg/dL (65-115) H 01/22/24 08:00 Calculated Osmolality 283 mOsm/kg (285-295) L 01/22/24 08:00 Lactic Acid 2.0 mmol/L (0.5-2.2) 01/22/24 08:00 Calcium 8.5 mg/dL (8.5-10.5) 01/22/24 08:00 Total Bilirubin 1.0 mg/dL (0.15-1.2) 01/22/24 08:00 AST 32 U/L (0-40) 01/22/24 08:00 ALT 22 U/L (0-41) 01/22/24 08:00 Alkaline Phosphatase 87 U/L (40-130) 01/22/24 08:00 Creatine Kinase 23 U/L (39-308) L 01/22/24 08:00 Total Protein 5.4 g/dL (6.6-8.7) L 01/22/24 08:00 Albumin 3.9 g/dL (3.5-5.2) 01/22/24 08:00 Globulin 1.5 g/dL (1.3-4.6) 01/22/24 08:00 Lipase 76 U/L (13-60) H 01/22/24 08:00 Urine Color Yellow (Yellow) 01/22/24 07:44 Urine Appearance Clear (CLEAR) 01/22/24 07:44 Urine pH 5 (5-7) 01/22/24 07:44 Ur Specific [place] 1.015 (1.005-1.030) 01/22/24 07:44 Urine Protein 1+ (Negative) H 01/22/24 07:44 Urine Glucose (UA) Norm (Normal) 01/22/24 07:44 Urine Ketones Negative (Negative) 01/22/24 07:44 Urine Blood 3+ (Negative) H 01/22/24 07:44 Urine Nitrate Negative (Negative) 01/22/24 07:44 Urine Bilirubin Neg (Negative) 01/22/24 07:44 Urine Urobilinogen Norm mg/dL (Negative) 01/22/24 07:44 Ur Leukocyte Esterase Negative (Negative) 01/22/24 07:44 Urine RBC Rare /hpf (0-2) 01/22/24 07:44 Urine WBC None /hpf (0-5) 01/22/24 07:44 Ur Squamous Epith Cells None /hpf (0-5) 01/22/24 07:44 Amorphous Sediment Trace /hpf 01/22/24 07:44 Urine Bacteria Trace /hpf (NONE) 01/22/24 07:44 Urine Mucus Trace /hpf 01/22/24 07:44 Adenovirus (PCR) Not detected (NOT DETECT) 01/22/24 14:20 C. pneumoniae DNA (PCR) Not detected (NOT DETECT) 01/22/24 14:20 Coronavirus 229E (PCR) Not detected (NOT DETECT) 01/22/24 14:20 Human Metapneumovir PCR Not detected (NOT DETECT) 01/22/24 14:20 Influenza A (H1) PCR Not detected (NOT DETECT) 01/22/24 14:20 Influ A (H1/09) PCR Not detected (NOT DETECT) 01/22/24 14:20 Influenza A (H3) PCR Not detected (NOT DETECT) 01/22/24 14:20 Influenza Type A (PCR) Not detected (NOT DETECT) 01/22/24 14:20 Influenza Type B (PCR) Not detected (NOT DETECT) 01/22/24 14:20 M. pneumoniae (PCR) Not detected (NOT DETECT) 01/22/24 14:20 Parainfluenza 1 (PCR) Not detected (NOT DETECT) 01/22/24 14:20 Parainfluenza 2 (PCR) Not detected (NOT DETECT) 01/22/24 14:20 Parainfluenza 3 (PCR) Not detected (NOT DETECT) 01/22/24 14:20 Parainfluenza 4 (PCR) Not detected (NOT DETECT) 01/22/24 14:20 RSV Type A (PCR) Not detected (NOT DETECT) 01/22/24 14:20 RSV Type B (PCR) Not detected (NOT DETECT) 01/22/24 14:20 Entero/Rhino (PCR) Not detected (NOT DETECT) 01/22/24 14:20 SARS-CoV-2 (PCR) Not detected (NOT DETECT) 01/22/24 14:20 All radiology interpretation(s) finalized by discharge Discharge Plan Discharge Patient Disposition: Xfer Short-Term Hosp Clinical Impression: LAMAR (acute kidney injury), Anemia, 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 therapy, Hx of kidney transplant, FSGS (focal segmental glomerulosclerosis), Gastroenteritis, Acute hypotension Condition: Stable Referrals: Jhony Kaur DO [Primary Care Provider] - Coding Level of Care Code ED Inbound Sales Advisor for Audrey Almanza
--- NOTE | 2024-01-22 08:54 | CT_ITS ---
WS: [id number] CT ABDOMEN PELVIS TECHNIQUE: Noncontrast CT of the abdomen and pelvis with coronal and sagittal reformatted images. CLINICAL INFORMATION: Abdominal pain COMPARISON: CT 12/11/2023 DLP: 784.[address] scans at [facility] use at least one of these dose optimization techniques: automated e xposure control; mA and/or kV adjustment per patient size (includes targeted exams where dose is matc hed to clinical indication); or iterative reconstruction. FINDINGS: Prior cholecystectomy. Prior appendectomy. Atrophic lumbee kidneys. Small LEFT renal cyst. Adrenal gl ands are normal. Transplant kidney in the RIGHT hemipelvis. Previously described sigmoid colitis has resolved. Normal-appearing sigmoid colon today. Lung bases are well aerated. Noncontrast liver is normal. Cholecystectomy clips. Normal noncontrast s pleen. Normal GE junction. Noncontrast pancreas appears normal. Mild aortic calcification. No free fl uid in the abdomen or pelvis. Mild lumbar curve. Mild spondylitic changes lumbar spine. Avascular necrosis of both femoral heads. This is unchanged since the prior study. No significant sub chondral collapse. CT/CT abdomen pelvis wo con [id number] IMPRESSION: 1. No acute findings in the abdomen or pelvis. 2. Prior cholecystectomy and appendectomy. 3. Atrophic lumbee kidneys. 4. Kidney transplant RIGHT hemipelvis. 5. Previously described colitis in the sigmoid colon has resolved. 6. Normal caliber abdominal aorta. 7. Avascular necrosis in the femoral heads. No subchondral collapse.
[2024-01-22 08:55] LABS: Add Urine Microscopic? YES; Bilirubin Urine Neg (Negative); Blood Urine 3+ (Negative); Glucose Urine UA Norm (Normal); Ketones Urine Negative (Negative); Leukocyte Esterase Urine Negative (Negative); Nitrate Urine Negative (Negative); Protein Urine 1+ (Negative); Specific Gravity, Urine 1.015 (1.005-1.030); Urine Appearance Clear (CLEAR); Urine Color Yellow (Yellow); Urobilinogen Urine Norm (Negative); pH Urine 5 (5-7)
[2024-01-22 08:58] LABS: Add Urine Culture? No; Amorphous Sediment Urine TRACE /hpf; Bacteria Urine TRACE /hpf; Mucus Urine TRACE /hpf; RBC Urine RARE /hpf (0-2)
--- NOTE | 2024-01-22 09:17 | PC.PHAR ---
SPOUSE STATES PT TOOK ALL HIS MORNING MEDS. 01/22/24
[2024-01-22 09:33] LABS: Creatine Phosphokinase 23 U/L (39-308)
[2024-01-22] MEDS: DOPamine drip 400 MG/250 ML PREMIX 16.7600000000000016 MG IV (14:05)
--- NOTE | 2024-01-22 15:28 | XR_ITS ---
WS: [id number] Exam: XR chest 1V portable [id number] Date/Time of Exam: 01/22/2024 3:33 PM Reason For Exam: central line placement Comparison 01/22/2024 at 8:06 a.m. A RIGHT subclavian central line has been placed and appears to end in the RIGHT atrium. The lungs are clear and fully inflated. Normal cardiomediastinal silhouette. Advanced degenerative change of the R IGHT shoulder. Remaining bony structures are unremarkable. XR/XR chest 1V portable [id number] IMPRESSION: 1. Right-sided subclavian central line extending into the RIGHT atrium. The curtis e could be retracted approximately 3 to 4 cm for positioning in the region of t he cavoatrial junction if so desired.. 2. No acute cardiopulmonary finding.
[2024-01-22] MEDS: norepinephrine 4 MG/250 ML BAG 7.5 MG IV (15:43)
--- NOTE | 2024-01-22 15:49 | PC.NURSE ---
left IJ central line placed by dr. Owens, hcp reviewed cxr and okayed using line. meds per OCT for BP currently 80/44
[2024-01-22] MEDS: WATER FOR INJECTION STERILE IV (16:01)
[2024-01-22] MEDS: SODIUM BICARBONATE IV (16:01)
[2024-01-22] MEDS: hydrocortisone 100 mg/2 mL SDV IVP (16:36)
[2024-01-22] MEDS: sodium chloride 0.9% 1,000 ML 75 ML IV (16:36)
[2024-01-22] MEDS: cefepime 1,000 MG in sodium chloride 0.9% (plus) 50 ML 100 MG IV (16:36)
[2024-01-22 17:16] LABS: Adenovirus Not Detected (NOT DETECT); Chlamydia Pneumoniae Not Detected (NOT DETECT); Coronavirus 229E,HKU1,NL63,OC4 Not Detected (NOT DETECT); Human Metapneumovirus Not Detected (NOT DETECT); Human Rhinovirus/Enterovirus Not Detected (NOT DETECT); Influenza A Not Detected (NOT DETECT); Influenza A H1 Not Detected (NOT DETECT); Influenza A H1-2009 Not Detected (NOT DETECT); Influenza A H3 Not Detected (NOT DETECT); Influenza B Not Detected (NOT DETECT); Mycoplasma Pneumoniae Not Detected (NOT DETECT); Parainfluenza Virus Type 1 Not Detected (NOT DETECT); Parainfluenza Virus Type 2 Not Detected (NOT DETECT); Parainfluenza Virus Type 3 Not Detected (NOT DETECT); Parainfluenza Virus Type 4 Not Detected (NOT DETECT); Respiratory Syncytial Virus A Not Detected (NOT DETECT); Respiratory Syncytial Virus B Not Detected (NOT DETECT); SARS-COV-2 Not Detected (NOT DETECT)
--- NOTE | 2024-01-22 17:31 | PC.NURSE ---
Vitals at 1715 are incorrect on the oxygen saturation, 69% is not correct. The computer will not let me edit the information. His correct oxygen saturation was 96%.
[2024-01-22] MEDS: HYDROmorphone 1 mg/mL INJ 1 mL 0.5 MG IVP (17:45)
== END 2024-01-22 18:11 | disposition short-term general hospital (02) ==
PROVIDERS: Emergency Provider Family Medicine; PCP Internal Medicine
DX: D64.9 Anemia, unspecified (principal); D84.821 Immunodeficiency due to drugs; Z79.60 Long term (current) use of unspecified immunomodulators and immunosuppressants; N26.9 Renal sclerosis, unspecified; K52.9 Noninfective gastroenteritis and colitis, unspecified; I95.9 Hypotension, unspecified; Z11.52 Encounter for screening for COVID-19; Z87.891 Personal history of nicotine dependence; Z94.0 Kidney transplant status; I13.2 Hypertensive heart and chronic kidney disease with heart failure and with stage 5 chronic kidney disease, or end stage renal disease; N18.6 End stage renal disease; I50.9 Heart failure, unspecified; Z99.2 Dependence on renal dialysis
CPT/HCPCS: 36415; 36556; 51702; 71045; 74176; 80053; 80197; 81001; 82550; 83605; 83690; 85025; 87040; 87086; 87486; 87581; 87633; 96365; 96366; 96367; 96375; 99291; J0692; J1170; J1265; J1720; J2405; J7030

== ENCOUNTER → 2024-02-17 08:31 | Outpatient (BNVA) | payer MEDICARE, OTHER, SELFPAY | PROVIDERS: PCP Internal Medicine; Visit Provider Nurse Practitioner Family | DX: L57.0 Actinic keratosis (principal); S50.911A Unspecified superficial injury of right forearm, initial encounter; X58.XXXA Exposure to other specified factors, initial encounter; Z92.25 Personal history of immunosuppression therapy; L81.4 Other melanin hyperpigmentation | CPT/HCPCS: 17000; 99213 ==

== ENCOUNTER 2024-05-05 20:00 | Outpatient (CLI) | payer MEDICARE, OTHER, SELFPAY | END 2024-05-05 20:01 | disposition home or self-care (01) | LOC: SLEEP 22:21 | PROVIDERS: PCP Internal Medicine; Visit Provider Internal Medicine | DX: G47.10 Hypersomnia, unspecified (principal) | CPT/HCPCS: 95810 ==

== ENCOUNTER 2024-05-23 18:49 | Emergency (ER) | payer MEDICARE, OTHER, SELFPAY ==
[2024-05-23] VITALS (51 sets, daily range): BP systolic 66–104; BP diastolic 47–75; PULSE 79–109; RESP 16–37; TEMP 36.7; O2SAT 71–100; BMI 25.2
--- NOTE | 2024-05-23 19:20 | XRR_ITS ---
PROCEDURE INFORMATION: Exam: XR Chest Exam date and time: 05/23/2024 8:07 PM Age: 59 years old Clinical indication: Shortness of breath; Prior surgery; Surgery date: 6+ months; Surgery type: Thoracotmy; Additional info: SOB low BP TECHNIQUE: Imaging protocol: Radiologic exam of the chest. Views: 1 view. COMPARISON: CR XR chest 1V portable [id number] 01/22/2024 3:34 PM FINDINGS: Lungs: No focal consolidation. Pleural spaces: No evidence of pneumothorax. No evidence of pleural effusion. Heart/Mediastinum: Cardiomediastinal silhouette is within normal limits. Bones/joints: No evidence of acute osseous abnormality. XR/XR chest 1V portable [id number] IMPRESSION: 1. No acute cardiopulmonary abnormality.
[2024-05-23] MEDS: ipratropium-albuterol 3 mL Neb INHALATION (19:28)
[2024-05-23] MEDS: norepinephrine 4 MG/250 ML BAG 7.5 MG IV (19:40)
[2024-05-23 19:41] LABS: Hematocrit 35.6 % (37-53); Mean Corpuscular HGB Conc 31.2 g/dL (30-55); Mean Corpuscular Hemoglobin 30.2 pg (27-33); Mean Corpuscular Volume 96.7 fl (82-101); Mean Platelet Volume 9.3 fL (7.4-10.4); Platelet Count 206 10^3/cmm (157-399); Red Blood Count 3.68 10^6/uL (3.85-5.65); White Blood Count 10.99 10^3/uL (3.29-11.43)
[2024-05-23 19:45] LABS: ABG PH Result 7.34 (7.35-7.45); Arterial Blood Gas Hematocrit 34.3 % (42-52); Base Excess ABG -12.9 mmol/L (-2.0-2.0); Blood Gas Allen Test Pos; Blood Gas Operator Identificat SAM; Blood Gas Sample Site Radial, right; Blood Gas Sample Type Arterial; HCO3 ABG 10.8 mmol/L (22-26); HGB O2 Sat 95.9 % (95-100); Methemoglobin 0.3 % (0.4-1.5); PO2 ABG 81.7 mmHg (80.0-100.0); Total Hemoglobin 11.2 g/dL (14-18)
[2024-05-23 19:47] LABS: ABG PCO2 19.8 mmHg (35-45)
[2024-05-23 19:54] LABS: INR 1.73 (0.8-1.2)
[2024-05-23] MEDS: piperacillin-tazobactam 4.5 GM in sodium chloride 0.9% (plus) 50 ML IV (19:55)
[2024-05-23 19:58] LABS: Absolute Segmented Neutrophil 3.5 10/cmm (1.6-7.1); Band Neutrophils Absolute 1.9 10^3/cmm (0.0-1.2); Eosinophils 0 %; Lymphocytes 23 %; Lymphocytes Absolute 3.5 10^3/cmm (1.2-3.4); Monocytes Absolute 1.5 10^3/cmm (0.1-0.6); Segmented Neutrophils 32 %; Slide Review Slide Review Perform; Total Cells Counted 100 (0-100)
[2024-05-23 19:59] LABS: Absolute Neutrophil 5.4 10^3/cmm (1.4-6.5); Platelet Estimate Normal (Normal)
[2024-05-23] MEDS: SODIUM CHLORIDE 0.9% 2531.04 ML IV (20:02)
[2024-05-23] MEDS: vancomycin 1,000 MG in sodium chloride 0.9% 250 ML 250 MG IV (20:02)
[2024-05-23 20:06] LABS: Alanine Aminotransferase 8 U/L (0-41); Alkaline Phosphatase 30 U/L (40-130); Anion Gap 21.2 (5-19); Aspartate Amino Transferase 17 U/L (0-40); Blood Urea Nitrogen 27 mg/dL (6-20); Calcium 8.7 mg/dL (8.5-10.5); Carbon Dioxide 15 mmol/L (22-29); Chloride 99 mmol/L (98-107); Creatinine Clr Calc Pharmacy 35.1773; Glomerular Filtration Rate 25.5 mL/min (90-130); Glucose 96 mg/dL (65-115); Osmolality Calculated 275 mOsm/kg (285-295); Potassium 5.2 mmol/L (3.5-5.1); Sodium 130 mmol/L (136-145); Total Bilirubin 0.7 mg/dL (0.15-1.2)
[2024-05-23 20:11] LABS: Lactic Sepsis W/Reflex 4.1 mmol/L (0.5-2.2); NT Pro B Type Natriuretic Pept 9508 pg/mL (0-125); Troponin(5th) Baseline 161 ng/L (0-15)
--- NOTE | 2024-05-23 20:11 | ECG_ITS ---
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 Measurements Intervals [place] Rate: 94 P: 44 MD: 175 QRS: -51 QRSD: 109 T: 78 QT: 331 QTc: 415 Interpretive Statements SINUS RHYTHM LEFT ANTERIOR FASCICULAR BLOCK [QRS AXIS <= -45, QR IN I, RS IN II] POSSIBLE ANTERIOR MYOCARDIAL INFARCTION , OF INDETERMINATE AGE [30 ms Q WAVE IN V3/V4, OR R < 0.2 mV IN V4] Compared to ECG 12/11/2023 08:08:01 Left anterior fascicular block now present Myocardial infarct finding now present Left ventricular hypertrophy no longer present ST (T wave) deviation no longer present Electronically Signed On 05-25-2024 18:50:10 CDT by David Gonzales M.D. [id number]
[2024-05-23] MEDS: diphenhydrAMINE 50 mg/mL SDV 1mL 12.5 MG IVP (20:30)
--- NOTE | 2024-05-23 21:17 | ECG_ITS ---
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 Measurements Intervals [place] Rate: 87 P: 34 DC: 179 QRS: -51 QRSD: 110 T: 82 QT: 334 QTc: 402 Interpretive Statements SINUS RHYTHM LEFT ANTERIOR FASCICULAR BLOCK [QRS AXIS <= -45, QR IN I, RS IN II] POSSIBLE ANTERIOR MYOCARDIAL INFARCTION , OF INDETERMINATE AGE [30 ms Q WAVE IN V3/V4, OR R < 0.2 mV IN V4] Compared to ECG 05/23/2024 20:11:24 No significant changes Electronically Signed On 05-25-2024 18:58:46 CDT by David Gonzales M.D. [id number]
[2024-05-23 21:22] LABS: Troponin 5 2HR Delta -30.5 ABS# (0-10)
[2024-05-23 21:23] LABS: Reflex Lactate Order REFLEX LACTIC ORDERD
[2024-05-23 21:23] LABS: Troponin 5 2HR 130.5 ng/L (0-15)
[2024-05-23 22:24] LABS: Lactic Acid level (Lactate) 3.9 mmol/L (0.5-2.2)
[2024-05-23 22:28] LABS: Bilirubin Urine Negative (Negative); Blood Urine Negative (Negative); Glucose Urine UA 1+ (Normal); Ketones Urine Negative (Negative); Leukocyte Esterase Urine Trace (Negative); Nitrate Urine Negative (Negative); Protein Urine 2+ (Negative); Specific Gravity, Urine 1.019 (1.005-1.030); Urine Appearance Turbid (CLEAR); Urine Color Dark Yellow (Yellow)
[2024-05-23 22:33] LABS: Add Urine Microscopic? YES; Bacteria Urine None Seen /hpf; Hyaline Casts Urine 65.36 /lpf; RBC Urine 0-2 /hpf (0-2); Squamous Epithelial Cell Urine 0-5 /hpf (0-5); Universal Test for UA Present (0); WBC Urine 0-5 /hpf (0-5)
[2024-05-23 22:46] LABS: Add Urine Culture? No; Calcium Oxalate Crystals Urine 0-4 /hpf; Mucus Urine 2+ /hpf
--- NOTE | 2024-05-23 23:09 | CTR_ITS ---
PROCEDURE INFORMATION: Exam: CT Chest Without Contrast; Diagnostic Exam date and time: 05/23/2024 11:22 PM Age: 59 years old Clinical indication: Other: Septic; Shortness of breath; Prior surgery; Surgery date: 6+ months; Surgery type: Kidney transplant, choley, hernia, thoracotomy; Additional info: Septic shock. No known source TECHNIQUE: Imaging protocol: Diagnostic computed tomography of the chest without contrast. Radiation optimization: All CT scans at this facility use at least one of these dose optimization techniques: automated exposure control; mA and/or kV adjustment per patient size (includes targeted exams where dose is matched to clinical indication); or iterative reconstruction. COMPARISON: CT chest w con* [id number] 05/10/2021 9:10 AM RADIATION DOSE METRICS: Total DLP (mGy-cm): 987.06 FINDINGS: Thyroid: Thyroid is normal. Lungs: Numerous small solid pulmonary nodules throughout the bilateral lungs, measuring up to 0.8 cm. Additional ill-defined/spiculated nodule in the central inferior right upper lobe. Pleural spaces: No pleural effusion. No pneumothorax. Heart: Heart is normal in size. No pericardial effusion. Coronary arteries: Mild coronary artery calcification. Lymph nodes: Multiple prominent sub threshold upper mediastinal lymph nodes, not significantly changed compared to 05/10/2021. Vasculature: Mild scattered calcific disease of the thoracic aorta. Bones/joints: No acute osseous findings. Soft tissues: Moderate left gynecomastia. PROCEDURE INFORMATION: Exam: CT Abdomen And Pelvis Without Contrast Exam date and time: 05/23/2024 11:22 PM Age: 59 years old Clinical indication: Other: Septic; Shortness of breath; Prior surgery; Surgery date: 6+ months; Surgery type: Kidney transplant, choley, hernia, thoracotomy; Additional info: Septic shock. No known source TECHNIQUE: Imaging protocol: Computed tomography of the abdomen and pelvis without contrast. Radiation optimization: All CT scans at this facility use at least one of these dose optimization techniques: automated exposure control; mA and/or kV adjustment per patient size (includes targeted exams where dose is matched to clinical indication); or iterative reconstruction. COMPARISON: CT abdomen pelvis wo con [id number] 01/22/2024 9:35 AM RADIATION DOSE METRICS: Total DLP (mGy-cm): 987.06 FINDINGS: Liver: Partially imaged liver is normal in appearance. Gallbladder and biliary ducts: Status post cholecystectomy. No significant biliary ductal dilation. Pancreas: Moderate atrophy of the pancreas, partially imaged. Spleen: The spleen is unremarkable. Adrenal glands: The adrenal glands are unremarkable. Kidneys and ureters: Partially imaged kidneys are better seen on prior study to demonstrate severe chronic atrophy. Stable appearance of transplant kidney in the right lower quadrant. Stomach and bowel: Overall nonobstructive bowel gas pattern. Appendix: No evidence of acute appendicitis. Intraperitoneal space: No significant free fluid in the abdomen or pelvis. Vasculature: Mild scattered calcific disease of the abdominal aorta and its major branches. Lymph nodes: No distinct pathologically enlarged lymphadenopathy. Urinary bladder: Urinary bladder is within normal limits. Reproductive: Visualized reproductive structures are within normal limits. Bones/joints: No acute osseous findings. Stable sclerotic appearance of the left femoral head, likely indicating avascular necrosis. No evidence of subchondral collapse. Soft tissues: Visualized superficial soft tissues are within normal limits. Other findings: Parts of the central abdomen are excluded from the field of view. CT/[place] [id number] IMPRESSION: Numerous small solid pulmonary nodules throughout the bilateral lungs, measuring up to 0.8 cm. Additional ill-defined/spiculated nodule in the central inferior right upper lobe. No distinct nodules were visualized in the lung bases on CT abdomen/pelvis 01/22/2024. These findings are favored to represent septic emboli to the lungs over neoplasia. IMPRESSION: 1. Parts of the central abdomen are excluded from the field of view. 2. No radiographic evidence of acute infection in the visualized abdomen. 3. Stable appearance of transplant kidney in the right lower quadrant.
[2024-05-24] VITALS: BP 95/69; PULSE 91; RESP 29; O2SAT 99
[2024-05-24 00:05] VITALS: BP 97/69; PULSE 89; RESP 25; O2SAT 100
[2024-05-24 00:10] VITALS: BP 97/69; PULSE 87; RESP 27; O2SAT 100
[2024-05-24 00:15] VITALS: BP 103/72; PULSE 88; RESP 26; O2SAT 100
--- NOTE | 2024-05-24 00:16 | ED_ITS ---
HPI - SOB/Dyspnea 2 General: Chief Complaint: Shortness of Breath/Dyspnea Stated Complaint: SOB\Fever\Fell Time Seen by Provider: 05/23/24 19:15 History of Present Illness: HPI Narrative: 59-year-old male with a history of focal segmental glomerulosclerosis. He is status post renal transplant. He has documented recurrence of his FSGS despite the transplant. He receives plasma exchange therapy in [place]. He presents short of breath. He has had multiple episodes of sepsis for various reasons in the past. He is on antirejection medication posttransplant. He was short of breath at home. He was feeling ill, and his checked for blood pressure and could not get a blood pressure at home. Related Data Home Medications Medication Instructions Recorded Confirmed cholecalciferol (vitamin D3) 25 25 mcg PO BID 01/14/20 01/22/24 mcg (1,000 unit) capsule fluticasone propionate 50 1 - 2 spray intranasal DAILY 01/14/20 01/22/24 mcg/actuation nasal spray,suspension tamsulosin 0.4 mg capsule 0.4 mg PO DAILY 01/14/20 01/22/24 atorvastatin 10 mg tablet 10 mg PO DAILY 02/13/21 01/22/24 gabapentin 100 mg capsule 100 mg PO EVERY OTHER DAY 02/13/21 01/22/24 famotidine 20 mg tablet 20 mg PO BID 07/11/21 01/22/24 hydromorphone 4 mg tablet 4 mg PO Q4H PRN Pain 07/11/21 01/22/24 diphenoxylate-atropine 2.5 2 tab PO DAILY PRN Diarrhea 01/16/22 01/22/24 mg-0.025 mg tablet prednisone 5 mg tablet 5 mg PO DAILY 01/16/22 01/22/24 acetaminophen 325 mg capsule 650 mg PO Q6H PRN Pain 03/20/22 01/22/24 loperamide 2 mg capsule 2 mg PO QID PRN Diarrhea 03/20/22 01/22/24 tizanidine 2 mg capsule 2 mg PO BEDTIME PRN Pain 03/20/22 01/22/24 artificial tears(hypromellose) 0.3 1 drp ophthalmic (eye) DAILY PRN 03/13/23 01/22/24 % eye drops Itching losartan 50 mg tablet 100 mg PO DAILY 03/13/23 01/22/24 ondansetron 4 mg disintegrating 4 mg PO Q8H PRN Nausea And Vomiting 03/13/23 01/22/24 tablet patiromer calcium sorbitex 16.8 16.8 g PO BID PRN Hyperkalemia 03/13/23 01/22/24 gram oral powder packet (Veltassa) empagliflozin 25 mg tablet 25 mg PO DAILY 06/06/23 01/22/24 (Jardiance) calcium polycarbophil 625 mg tablet 625 mg PO DAILY 08/08/23 01/22/24 cyanocobalamin (vitamin B-12) 1,000 mcg PO DAILY 08/08/23 01/22/24 1,000 mcg capsule ferrous sulfate 325 mg (65 mg 325 mg PO DAILY 08/08/23 01/22/24 iron) tablet filgrastim 480 mcg/1.6 mL 480 mcg SUBCUT DAILY PRN UNKNOWN 08/08/23 01/22/24 injection solution albuterol sulfate 90 mcg/actuation 2 puff inhalation Q6H PRN Wheezing 12/11/23 01/22/24 aerosol inhaler duloxetine 40 mg capsule,delayed 40 mg PO DAILY 12/11/23 01/22/24 release finasteride 5 mg tablet 5 mg PO DAILY 12/11/23 01/22/24 ipratropium bromide 42 mcg (0.06 2 spray intranasal QID PRN 12/11/23 01/22/24 %) nasal spray ALLERGIES mycophenolate sodium 360 mg 360 mg PO BID 12/11/23 01/22/24 tablet,delayed release tacrolimus 1 mg tablet,extended 3 mg PO .EVERY OTHER DAY 12/11/23 01/22/24 release 24 hr (Envarsus XR) vitamin B12 500 mcg-folic acid 400 1 tab PO DAILY 12/11/23 01/22/24 mcg tablet Previous Rx's Medication Instructions Recorded pantoprazole 40 mg tablet,delayed 40 mg PO BID 6 weeks #84 tabs 04/12/23 release (Protonix) metoprolol tartrate 25 mg tablet 12.5 mg (1/2 x 25 mg) PO Q12H #30 05/26/23 tabs Allergies Allergy/AdvReac Type Severity Reaction Status Date / Time No Known Allergies Allergy Verified 12/11/23 08:13 PFS ED 2 PFSH: Medical History 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 therapy Gout Benign prostatic hyperplasia Peptic ulcer disease Obstructive sleep apnea Fibromyalgia Degenerative joint disease of spine Degenerative arthritis History of peritonitis In association with peritoneal dialysis FSGS (focal segmental glomerulosclerosis), tip variant with nephrosis Pulmonary hypertension associated with ESRD on dialysis Hypertension Hyperlipidemia ESRD (end stage renal disease) 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 Carpal tunnel syndrome, bilateral upper limbs Surgical History Hx of colonoscopy less than 1 year, no polyps History of esophagogastroduodenoscopy (EGD) less than 1 year History of bilateral carpal tunnel release History of right breast biopsy for benign disease History of thoracotomy with chest tube, for pneumonia History of kidney transplant (09/2021) History of cholecystectomy History of umbilical hernia repair History of arthroscopic knee surgery x 3 History of arthroscopy of right shoulder Family History Father CAD (coronary artery disease) Chronic kidney disease (CKD) Mother Arthritis Other Diabetes Hyperlipidemia Hypertension Denies family history of Clotting disorder Dementia Psychiatric illness Suicide Anesthesia complication Bleeding disorder Lung disease Cancer Stroke Social History Smoking and tobacco/nicotine status: former use of tobacco/nicotine (Smoked for 15 years) Alcohol intake: never Substance/Drug Use: never Household members: spouse Marital status: Current occupational status: disabled Physical Exam 2 Const: GENERAL APPEARANCE: cooperative, well kempt and ill appearing; not comfortable HENMT: COMMON NORMALS: normocephalic HEAD & SCALP: normocephalic FACE & SINUS: face symmetric Eye: COMMON NORMALS: Equal, round and reactive pupils present and EOMs intact bilaterally PUPIL: Yes Equal, round and reactive pupils present Resp: COMMON NORMALS: clear to auscultation bilaterally EFFORT & INSPECTION: Yes tachypneic AUSCULTATION: clear to auscultation bilaterally and diminished lung sounds Cardio: COMMON NORMALS: regular rhythm RATE: tachycardic RHYTHM: regular rhythm GI: COMMON NORMALS: Soft to palpation and non-tender PALPATION: Yes Soft to palpation Extremity: COMMON NORMALS: no pedal edema Neuro: CHARISSE COMA SCALE: document GCS findings [place] coma scale eye opening: Spontaneous [place] coma scale verbal response: Orientated [place] coma scale motor response: Obey commands [place] coma scale total score: 15 S PEECH: speech normal Psych: APPEARANCE: Yes well kempt Course 2 Vital Signs: Vital signs: Vital Signs Temperature 98.0 F 05/23/24 20:50 Pulse Rate 97 05/24/24 01:23 Respiratory Rate 26 H 05/24/24 00:15 Blood Pressure 99/69 05/24/24 01:23 Pulse Oximetry 98 05/24/24 01:23 Oxygen Delivery Me thod Room Air 05/23/24 20:25 MDM - SOB/Dyspnea Medical Decision Making Patient presents a febrile, and awakened talking. However, has a significantly low blood pressure of 60s systolic on arrival. He's given a fluid bolus, and pressors started immediately. Blood pressure zaid appropriately with both. He remains awake, talking, and on room air. He is a transplant patient, and immunosuppressed. Blood cultures were taken, antibiotics were started empirically. his white blood cell count is only 11. Creatinine is up at 2.6, potassium mildly high at 5.2. Source of sepsis was unknown after urinalysis and chest X-ray. This patient gets all of his care at [facility] in [place]. I spoke with their intensive care physician, as we do not have critical care or in person, inpatient nephrology here. They're willing to accept the patient. Given us critical status, he'll go by air ambulance as a direct admit to the ICU there. Driving School Instructor requested non contrast CT of the chest abdomen and pelvis prior to leaving. This was completed, and images were uploaded to [facility] by cloud. Lab Data 05/23/24 19:20 05/23/24 19:20 Labs/Radiology: Radiology Impressions Chest X-Ray 05/23/24 19:20 IMPRESSION: 1. No acute cardiopulmonary abnormality. Chest/Abdomen/Pelvis CT 05/23/24 23:09 IMPRESSION: Numerous small solid pulmonary nodules throughout the bilateral lungs, measuring up to 0.8 cm. Additional ill-defined/spiculated nodule in the central inferior right upper lobe. No distinct nodules were visualized in the lung bases on CT abdomen/pelvis 01/22/2024. These findings are favored to represent septic emboli to the lungs over neoplasia. IMPRESSION: 1. Parts of the central abdomen are excluded from the field of view. 2. No radiographic evidence of acute infection in the visualized abdomen. 3. Stable appearance of transplant kidney in the right lower quadrant. Laboratory Results WBC 10.99 10^3/uL (3.29-11.43) 05/23/24 19:20 RBC 3.68 10^6/uL (3.85-5.65) L 05/23/24 19:20 Hgb 11.10 g/dL (11.27-16.99) L 05/23/24 19:20 Hct 35.6 % (37-53) L 05/23/24 19:20 MCV 96.7 fl (82-101) 05/23/24 19:20 MCH 30.2 pg (27-33) 05/23/24 19:20 MCHC 31.2 g/dL (30-55) 05/23/24 19:20 RDW 21.0 % (12.1-15.1) H 05/23/24 19:20 Plt Count 206 10^3/cmm (157-399) 05/23/24 19:20 MPV 9.3 fL (7.4-10.4) 05/23/24 19:20 Lymph % (Auto) Not Reportable 05/23/24 19:20 [place] % (Auto) Not Reportable 05/23/24 19:20 Lymph # (Auto) Not Reportable 05/23/24 19:20 [place] # (Auto) Not Reportable 05/23/24 19:20 Total Counted 100 (0-100) 05/23/24 19:20 Atypical Lymphs % 9.0 % (0-5) H 05/23/24 19:20 Absolute Neutrophils 5.4 10^3/cmm (1.4-6.5) 05/23/24 19:20 Segmented Neutrophils 32 % 05/23/24 19:20 Band Neutrophils 17.0 % 05/23/24 19:20 Absolute Lymphocytes 3.5 10^3/cmm (1.2-3.4) H 05/23/24 19:20 Lymphocytes (Manual) 23 % 05/23/24 19:20 Monocytes (Manual) 14.0 % 05/23/24 19:20 Absolute Monocytes 1.5 10^3/cmm (0.1-0.6) H 05/23/24 19:20 Eosinophils (Manual) 0 % 05/23/24 19:20 Absolute Eosinophils 0.0 10^3/cmm (0.0-0.7) 05/23/24 19:20 Basophils (Manual) 0.0 % 05/23/24 19:20 Absolute Basophils 0.0 10^3/cmm (0.0-0.2) 05/23/24 19:20 Metamyelocytes 4.0 % 05/23/24 19:20 Myelocytes 1.0 % 05/23/24 19:20 Platelet Estimate Normal (Normal) 05/23/24 19:20 PT 20.90 SECONDS (12.1-14.9) H 05/23/24 19:20 INR 1.73 (0.8-1.2) H 05/23/24 19:20 Specimen Type Arterial 05/23/24 19:34 Sample Site Radial, right 05/23/24 19:34 ABG pH 7.34 (7.35-7.45) L 05/23/24 19:34 ABG pCO2 19.8 mmHg (35-45) L* 05/23/24 19:34 ABG pO2 81.7 mmHg (80.0-100.0) 05/23/24 19:34 ABG HCO3 10.8 mmol/L (22-26) L 05/23/24 19:34 ABG Base Excess -12.9 mmol/L (-2.0-2.0) L 05/23/24 19:34 Benji Test Pos 05/23/24 19:34 Hematocrit 34.3 % (42-52) L 05/23/24 19:34 Hgb O2 Saturation 95.9 % (95-100) 05/23/24 19:34 Carboxyhemoglobin 1.0 %THgb (0.4-20.1) 05/23/24 19:34 Methemoglobin 0.3 % (0.4-1.5) L 05/23/24 19:34 Total Hemoglobin 11.2 g/dL (14-18) L 05/23/24 19:34 O2 Delivery Device None 05/23/24 19:34 Clinical Engineering Director ID Jhony 05/23/24 19:34 Sodium 130 mmol/L (136-145) L 05/23/24 19:20 Potassium 5.2 mmol/L (3.5-5.1) H 05/23/24 19:20 Chloride 99 mmol/L (98-107) 05/23/24 19:20 Carbon Dioxide 15 mmol/L (22-29) L 05/23/24 19:20 Anion Gap 21.2 (5-19) H 05/23/24 19:20 BUN 27 mg/dL (6-20) H 05/23/24 19:20 Creatinine 2.6 mg/dL (0.7-1.2) H 05/23/24 19:20 GFR Calculation 25.5 mL/min (90-130) L 05/23/24 19:20 Glucose 96 mg/dL (65-115) 05/23/24 19:20 Calculated Osmolality 275 mOsm/kg (285-295) L 05/23/24 19:20 Lactic Acid 4.1 mmol/L (0.5-2.2) H* 05/23/24 19:20 Lactic Acid (Sepsis) 3.9 mmol/L (0.5-2.2) H 05/23/24 22:00 Calcium 8.7 mg/dL (8.5-10.5) 05/23/24 19:20 Total Bilirubin 0.7 mg/dL (0.15-1.2) 05/23/24 19:20 AST 17 U/L (0-40) 05/23/24 19:20 ALT 8 U/L (0-41) 05/23/24 19:20 Alkaline Phosphatase 30 U/L (40-130) L 05/23/24 19:20 Troponin T Baseline 161 ng/L (0-15) H* 05/23/24 19:20 Troponin T 120 Minute 130.5 ng/L (0-15) H 05/23/24 20:53 Delta Troponin T -30.5 ABS# (0-10) L 05/23/24 20:53 NT-Pro-B Natriuret Pep 9508 pg/mL (0-125) H 05/23/24 19:20 Total Protein 5.0 g/dL (6.6-8.7) L 05/23/24 19:20 Albumin 4.0 g/dL (3.5-5.2) 05/23/24 19:20 Globulin 1.0 g/dL (1.3-4.6) L 05/23/24 19:20 Urine Color Dark yellow (Yellow) A 05/23/24 20:17 Urine Appearance Turbid (CLEAR) A 05/23/24 20:17 Urine pH 5.0 (5-7) 05/23/24 20:17 Ur Specific [place] 1.019 (1.005-1.030) 05/23/24 20:17 Urine Protein 2+ (Negative) A 05/23/24 20:17 Urine Glucose (UA) 1+ (Normal) H 05/23/24 20:17 Urine Ketones Negative (Negative) 05/23/24 20:17 Urine Blood Negative (Negative) 05/23/24 20:17 Urine Nitrate Negative (Negative) 05/23/24 20:17 Urine Bilirubin Negative (Negative) 05/23/24 20:17 Urine Urobilinogen 1.0 mg/dL (Negative) 05/23/24 20:17 Ur Leukocyte Esterase Trace (Negative) A 05/23/24 20:17 Urine RBC 0-2 /hpf (0-2) 05/23/24 20:17 Urine WBC 0-5 /hpf (0-5) 05/23/24 20:17 Ur Squamous Epith Cells 0-5 /hpf (0-5) 05/23/24 20:17 Calcium Oxalate Crystal 0-4 /hpf H 05/23/24 20:17 Amorphous Sediment Not Reportable 05/23/24 20:17 Urine Bacteria None seen /hpf (NONE) 05/23/24 20:17 Hyaline Casts 65.36 /lpf 05/23/24 20:17 Urine Mucus 2+ /hpf 05/23/24 20:17 All radiology interpretation(s) finalized by discharge Critical Care Time 2 Critical Care Time: Critical Care Time: Yes Total Critical Care Time: 45 Attestation: This case had a high probability of a clinically significant, sudden, or life threatening deterioration of this patient's condition which required my full and direct attention, intervention and personal management. Time is independent of any procedures performed. Discharge Plan Discharge Patient Disposition: Xfer Short-Term Hosp Clinical Impression: FSGS (focal segmental glomerulosclerosis), Septic shock Condition: Critical Referrals: Jhony Kaur DO [Primary Care Provider] - Coding Level of Care Code ED Tool And Equipment Rental Clerk for Audrey Almanza
[2024-05-24 01:23] VITALS: BP 99/69; PULSE 97; O2SAT 98
== END 2024-05-24 00:55 | disposition short-term general hospital (02) ==
PROVIDERS: Emergency Provider Emergency Medicine; PCP Internal Medicine
DX: N26.9 Renal sclerosis, unspecified (principal); A41.9 Sepsis, unspecified organism; R65.21 Severe sepsis with septic shock; Z87.891 Personal history of nicotine dependence; Z94.0 Kidney transplant status; I12.0 Hypertensive chronic kidney disease with stage 5 chronic kidney disease or end stage renal disease; N18.6 End stage renal disease; E78.5 Hyperlipidemia, unspecified
CPT/HCPCS: 36600; 71045; 71250; 74176; 80053; 81001; 82805; 83605; 83880; 84484; 85007; 85025; 85610; 87040; 93005; 94640; 96365; 96366; 96367; 96375; 99285; J1200; J2543; J3370; J7030; J7050

== ENCOUNTER 2024-07-02 16:54 | Emergency (ER) | payer OTHER, MEDICARE, SELFPAY ==
[2024-07-02] VITALS (28 sets, daily range): BP systolic 52–111; BP diastolic 38–79; PULSE 76–197; RESP 17–35; TEMP 36.8; O2SAT 0–100; BMI 24.4
--- NOTE | 2024-07-02 17:06 | XRR_ITS ---
PROCEDURE INFORMATION: Exam: XR Chest Exam date and time: 07/02/2024 5:30 PM Age: 59 years old Clinical indication: Shortness of breath; Additional info: Palpitations TECHNIQUE: Imaging protocol: Radiologic exam of the chest. Views: 1 view. COMPARISON: [place] [id number] 05/23/2024 11:22 PM. Chest radiographs dated 05/23/2024, 01/22/2024, 05/26/2023 and 03/19/2023. FINDINGS: Tubes, catheters and devices: None. Lungs: Bilateral perihilar and basilar pulmonary linear interstitial opacities identified within lungs. Lung volumes are decreased. Lung nodularity was previously seen in April 2024 CT imaging but is not well seen radiographically at this time. Pleural spaces: No pleural effusion. No pneumothorax. Heart/Mediastinum: Cardiac silhouette appears mildly enlarged. Bones/joints: Diffusely decreased bone density. Mild generalized bony degenerative changes. Bony structures appear otherwise unremarkable. Mild generalized bony degenerative changes. Bony structures appear otherwise unremarkable. Soft tissues: This study is limited by patient's body habitus. Other findings: External artifact overlies the area of interest. Limited study. XR/XR chest 1V portable [id number] IMPRESSION: 1. Pulmonary atelectasis or acute infiltrates within perihilar and basilar chest bilaterally. Decreased lung volumes. 2. Mild enlarged cardiac silhouette. 3. Recommend CT imaging for follow-up of previously seen lung nodularity.
[2024-07-02] MEDS: adenosine 3 mg/mL SDV 2mL 6 MG IVP (17:14)
[2024-07-02] MEDS: adenosine 3 mg/mL SDV 2mL 12 MG IVP (17:16)
[2024-07-02 17:17] LABS: Basophils % 0.5 %; Eosinophils # 0.1 10^3/uL (0.0-0.8); Eosinophils % 1.8 %; Hematocrit 34.7 % (37-53); Lymphocytes # 2.6 10^3/uL (0.8-4.8); Lymphocytes % 32.1 %; Mean Corpuscular HGB Conc 31.4 g/dL (30-55); Mean Corpuscular Hemoglobin 29.7 pg (27-33); Mean Corpuscular Volume 94.6 fl (82-101); Monocytes # 1.6 10^3/uL (0.2-0.9); Monocytes % 19.4 %; Neutrophils # 3.26 10^3/uL (1.8-7.7); Neutrophils % 40.8 %; Nucleated Red Blood Cells % 0.3 %; Platelet Count 252 10^3/cmm (157-399); Red Blood Count 3.67 10^6/uL (3.85-5.65); Red Cell Distribution Width 16.1 % (12.1-15.1); White Blood Count 7.98 10^3/uL (3.29-11.43)
[2024-07-02] MEDS: amiodarone 50 mg/mL SDV 3 mL 150 MG IVP (17:21)
[2024-07-02] MEDS: metoprolol tartrate 1 mg/1 mL SDV 5 mL 5 MG IVP (17:24)
--- NOTE | 2024-07-02 17:28 | ECG_ITS ---
[employer] Test Date: 2024-07-02 Pat Name: Mark Mccabe Department: Room: Gender: Male Foot Specialist: : [id number] Requested By: Deepa Lawrence Order Number: [id number] Vela MD: Darron Castanon M.D. Measurements Intervals [place] Rate: 92 P: 39 GA: 186 QRS: -54 QRSD: 106 T: 87 QT: 339 QTc: 421 Interpretive Statements SINUS RHYTHM WITH SINUS ARRHYTHMIA LOW QRS VOLTAGE IN PRECORDIAL LEADS [QRS DEFLECTION < 1.0 mV IN CHEST LEADS] LEFT ANTERIOR FASCICULAR BLOCK [QRS AXIS <= -45, QR IN I, RS IN II] LEFT VENTRICULAR HYPERTROPHY AND ST-T CHANGE [VOLTAGE CRITERIA PLUS ST/T ABNORMALITY] POSSIBLE ANTEROSEPTAL MYOCARDIAL INFARCTION , PROBABLY OLD [30 ms Q WAVE IN V1-V4] Compared to ECG 05/23/2024 21:17:33 Low QRS voltage now present Left ventricular hypertrophy now present ST (T wave) deviation now present Myocardial infarct finding still present Electronically Signed On 07-02-2024 21:19:07 PRODUCT COORDINATOR by Darron Castanon M.D. [email or web address]
--- NOTE | 2024-07-02 17:30 | ED_ITS ---
HPI - Arrhythmia/Palpitations 2 General: Chief Complaint: Arrhythmia/Palpitations Stated Complaint: HR racing Time Seen by Provider: 07/02/24 17:04 History of Present Illness: 59-year-old man with a history of SVT, g out, fibromyalgia, pulmonary hypertension, chronic kidney disease, hypertension and hyperlipidemia who presents to the emergency room in [facility]. He has had this many times before. He feels somewhat short of breath. Lightheaded with standing. On presentation heart rate is in the 190s with a blood pressure in the 50s systolic. While sitting he is relatively asymptomatic. No chest pain. No abdominal pain. No nausea or vomiting. Apparently this started when he had a coughing fit earlier. Related Data Home Medications Medication Instructions Recorded Confirmed cholecalciferol (vitamin D3) 25 25 mcg PO BID 01/14/20 01/22/24 mcg (1,000 unit) capsule fluticasone propionate 50 1 - 2 spray intranasal DAILY 01/14/20 01/22/24 mcg/actuation nasal spray,suspension tamsulosin 0.4 mg capsule 0.4 mg PO DAILY 01/14/20 01/22/24 atorvastatin 10 mg tablet 10 mg PO DAILY 02/13/21 01/22/24 gabapentin 100 mg capsule 100 mg PO EVERY OTHER DAY 02/13/21 01/22/24 famotidine 20 mg tablet 20 mg PO BID 07/11/21 01/22/24 hydromorphone 4 mg tablet 4 mg PO Q4H PRN Pain 07/11/21 01/22/24 diphenoxylate-atropine 2.5 2 tab PO DAILY PRN Diarrhea 01/16/22 01/22/24 mg-0.025 mg tablet prednisone 5 mg tablet 5 mg PO DAILY 01/16/22 01/22/24 acetaminophen 325 mg capsule 650 mg PO Q6H PRN Pain 03/20/22 01/22/24 loperamide 2 mg capsule 2 mg PO QID PRN Diarrhea 03/20/22 01/22/24 tizanidine 2 mg capsule 2 mg PO BEDTIME PRN Pain 03/20/22 01/22/24 artificial tears(hypromellose) 0.3 1 drp ophthalmic (eye) DAILY PRN 03/13/23 01/22/24 % eye drops Itching losartan 50 mg tablet 100 mg PO DAILY 03/13/23 01/22/24 ondansetron 4 mg disintegrating 4 mg PO Q8H PRN Nausea And Vomiting 03/13/23 01/22/24 tablet patiromer calcium sorbitex 16.8 16.8 g PO BID PRN Hyperkalemia 03/13/23 01/22/24 gram oral powder packet (Veltassa) empagliflozin 25 mg tablet 25 mg PO DAILY 06/06/23 01/22/24 (Jardiance) calcium polycarbophil 625 mg tablet 625 mg PO DAILY 08/08/23 01/22/24 cyanocobalamin (vitamin B-12) 1,000 mcg PO DAILY 08/08/23 01/22/24 1,000 mcg capsule ferrous sulfate 325 mg (65 mg 325 mg PO DAILY 08/08/23 01/22/24 iron) tablet filgrastim 480 mcg/1.6 mL 480 mcg SUBCUT DAILY PRN UNKNOWN 08/08/23 01/22/24 injection solution albuterol sulfate 90 mcg/actuation 2 puff inhalation Q6H PRN Wheezing 12/11/23 01/22/24 aerosol inhaler duloxetine 40 mg capsule,delayed 40 mg PO DAILY 12/11/23 01/22/24 release finasteride 5 mg tablet 5 mg PO DAILY 12/11/23 01/22/24 ipratropium bromide 42 mcg (0.06 2 spray intranasal QID PRN 12/11/23 01/22/24 %) nasal spray ALLERGIES mycophenolate sodium 360 mg 360 mg PO BID 12/11/23 01/22/24 tablet,delayed release tacrolimus 1 mg tablet,extended 3 mg PO .EVERY OTHER DAY 12/11/23 01/22/24 release 24 hr (Envarsus XR) vitamin B12 500 mcg-folic acid 400 1 tab PO DAILY 12/11/23 01/22/24 mcg tablet Previous Rx's Medication Instructions Recorded pantoprazole 40 mg tablet,delayed 40 mg PO BID 6 weeks #84 tabs 04/12/23 release (Protonix) metoprolol tartrate 25 mg tablet 12.5 mg (1/2 x 25 mg) PO Q12H #30 05/26/23 tabs Allergies Allergy/AdvReac Type Severity Reaction Status Date / Time No Known Allergies Allergy Verified 12/11/23 08:13 Review of Systems 2 Narrative: Constitutional symptoms: Negative except as documented in HPI. Skin symptoms: Negative except as documented in HPI. Eye symptoms: Negative except as documented in HPI. ENMT symptoms: Negative except as documented in HPI. Respiratory symptoms: Negative except as documented in HPI. Cardiovascular symptoms: Negative except as documented in HPI. Gastrointestinal symptoms: Negative except as documented in HPI. Genitourinary symptoms: Negative except as documented in HPI. Musculoskeletal symptoms: Negative except as documented in HPI. Neurologic symptoms: Negative except as documented in HPI. Psychiatric symptoms: Negative except as documented in HPI. Endocrine symptoms: Negative except as documented in HPI. 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 Carpal tunnel syndrome, bilateral upper limbs Surgical History Hx of colonoscopy less than 1 year, no polyps History of esophagogastroduodenoscopy (EGD) less than 1 year History of bilateral carpal tunnel release History of right breast biopsy for benign disease History of thoracotomy with chest tube, for pneumonia History of kidney transplant (09/2021) History of cholecystectomy History of umbilical hernia repair History of arthroscopic knee surgery x 3 History of arthroscopy of right shoulder Family History Father CAD (coronary artery disease) Chronic kidney disease (CKD) Mother Arthritis Other Diabetes Hyperlipidemia Hypertension Denies family history of Clotting disorder Dementia Psychiatric illness Suicide Anesthesia complication Bleeding disorder Lung disease Cancer Stroke Social History Smoking and tobacco/nicotine status: former use of tobacco/nicotine (Smoked for 15 years) Alcohol intake: never Substance/Drug Use: never Household members: spouse Marital status: Current occupational status: disabled Physical Exam 2 Narrative: EXAM NARRATIVE: General: Alert, no acute distress. Skin: Warm, dry. Head: Normocephalic, atraumatic. Neck: Supple, trachea midline. Eye: Extraocular movements are intact. Ears, nose, mouth and throat: mucosa moist. Cardiovascular: Patient is very tachycardic, Normal peripheral perfusion. Respiratory: Lungs are clear to auscultation, respirations are non-labored, breath sounds are equal, Symmetrical chest wall expansion. Gastrointestinal: Soft, Nontender, Non distended Musculoskeletal: Normal ROM, no deformity. Neurological: Alert and oriented, No focal neurological deficit observed. Psychiatric: Cooperative, appropriate mood & affect. Course 2 Vital Signs: Vital signs: Vital Signs Temperature 98.2 F 07/02/24 17:26 Pulse Rate 85 07/02/24 20:00 Respiratory Rate 20 H 07/02/24 20:00 Blood Pressure 104/72 07/02/24 20:00 Pulse Oximetry 0 L 07/02/24 20:00 Oxygen Delivery Me thod Room Air 07/02/24 17:26 MDM - Arrhythmia/Palpitations Medical Decision Making Medical decision making: Differential diagnosis including but not limited to and based on the above HPI, review of systems and physical exam: for patient with SVT: SVT, atrial fibrillation with rapid ventricular response. ventricular tachycardia. sinus tachycardia. PVCs. also concern for underlying issues causing tachycardia. Infection, electrolyte abnormalities and thyroid issues Orders placed to evaluate differential diagnosis based on the above differential, HPI and physical exam EKG: Time 1702. Rate 188. SVT, No ST-T changes, no ectopy, This was reviewed and interpreted by myself the ER physician at 1705. Chemical cardioversion. Time: 1715 Confirmed: Patient, procedure, and site correct. Consent: Patient. Indication: SVT Monitoring: Cardiac, blood pressure, continuous pulse oximetry. Technique: 6 mg IV adenosine., Been a 12 mg dose. Patient converted briefly and then went back into SVT with a rate in the 180s again. Ordered some amiodarone because blood pressure was soft. This was given. We are planning on cardioverting again and he converted after the amiodarone. Post procedure exam: Now in sinus rhythm Complications: None. Performed by: Self. Total time: 10 minutes. Repeat EKG: Time 1725. Rate 80. Normal sinus rhythm, nonspecific ST-T changes, no ectopy, normal RI & QRS intervals, This was reviewed and interpreted by myself the ER physician at 1730. Patient is now in a sinus rhythm. Chest x-ray: Atelectasis or infiltrates within perihilar and basilar chest bilaterally. Decreased lung volumes. No infiltrate. No pneumothorax. This was reviewed and interpreted by myself the ER physician. Lab Review: Laboratory results were reviewed and interpreted by myself the emergency room physician. No leukocytosis. No anemia. BUN and creatinine are lower than normal at 26 and 2. He has had end-stage renal disease in the past. Repeat EKG Time 191. Rate 84. Normal sinus rhythm, nonspecific ST-T changes, no ectopy, normal RI & QRS intervals, This was reviewed and interpreted by myself the ER physician at 1730. No significant changes from EKG done at 1725. CT of the chest without contrast: This was done because concern for infiltrates. This must have been atelectasis. I do not see any infiltrates on his CT. My radiology review I reviewed the patient's medical record. Reexamination: Patient remained stable. No increased work of breathing. No altered mental status. No focal motor deficits. We discussed admission but patient would rather go home. He has had this quite frequently. He never had any chest pain but did have some shortness of breath. Discussed likely his elevation in his troponin was secondary to tachycardia and it has come down rather than go up. He is now at around his baseline troponin. Assessment and plan: SVT. Heart strain Hypomagnesemia Mild dehydration ?Patient converted. He has remained in sinus. Had some mild strain. He seems to be back to his baseline troponin. Replacing magnesium. - Discharged home - Discussed findings and plan with patient. Answered any questions. - All laboratory values were reviewed and interpreted personally by myself, the ER physician - All imaging was reviewed and interpreted personally by myself, the ER physician. - Evaluation and treatment of this problem were appropriate in the emergency setting Lab Data 07/02/24 17:08 07/02/24 17:08 Radiology Impressions Chest X-Ray 07/02/24 17:06 IMPRESSION: 1. Pulmonary atelectasis or acute infiltrates within perihilar and basilar chest bilaterally. Decreased lung volumes. 2. Mild enlarged cardiac silhouette. 3. Recommend CT imaging for follow-up of previously seen lung nodularity. Laboratory Results WBC 7.98 10^3/uL (3.29-11.43) 07/02/24 17:08 RBC 3.67 10^6/uL (3.85-5.65) L 07/02/24 17:08 Hgb 10.90 g/dL (11.27-16.99) L 07/02/24 17:08 Hct 34.7 % (37-53) L 07/02/24 17:08 MCV 94.6 fl (82-101) 07/02/24 17:08 MCH 29.7 pg (27-33) 07/02/24 17:08 MCHC 31.4 g/dL (30-55) 07/02/24 17:08 RDW 16.1 % (12.1-15.1) H 07/02/24 17:08 Plt Count 252 10^3/cmm (157-399) 07/02/24 17:08 MPV 9.0 fL (7.4-10.4) 07/02/24 17:08 Neut % (Auto) 40.8 % 07/02/24 17:08 Lymph % (Auto) 32.1 % 07/02/24 17:08 [place] % (Auto) 19.4 % 07/02/24 17:08 Eos % (Auto) 1.8 % 07/02/24 17:08 Baso % (Auto) 0.5 % 07/02/24 17:08 Neut # (Auto) 3.26 10^3/uL (1.8-7.7) 07/02/24 17:08 Lymph # (Auto) 2.6 10^3/uL (0.8-4.8) 07/02/24 17:08 [place] # (Auto) 1.6 10^3/uL (0.2-0.9) H 07/02/24 17:08 Eos # (Auto) 0.1 10^3/uL (0.0-0.8) 07/02/24 17:08 Baso # (Auto) 0.0 10^3/uL (0.0-0.1) 07/02/24 17:08 Nucleated RBC % (auto) 0.3 % 07/02/24 17:08 Nucleated RBCs # 0.0 /100WBC 07/02/24 17:08 Sodium 140 mmol/L (136-145) 07/02/24 17:08 Potassium 4.2 mmol/L (3.5-5.1) 07/02/24 17:08 Chloride 107 mmol/L (98-107) 07/02/24 17:08 Carbon Dioxide 19 mmol/L (22-29) L 07/02/24 17:08 Anion Gap 18.2 (5-19) 07/02/24 17:08 BUN 26 mg/dL (6-20) H 07/02/24 17:08 Creatinine 2.0 mg/dL (0.7-1.2) H 07/02/24 17:08 GFR Calculation 34.5 mL/min (90-130) L 07/02/24 17:08 Glucose 105 mg/dL (65-115) 07/02/24 17:08 Calculated Osmolality 295 mOsm/kg (285-295) 07/02/24 17:08 Calcium 9.0 mg/dL (8.5-10.5) 07/02/24 17:08 Magnesium 1.6 mg/dL (1.7-2.3) L 07/02/24 17:08 Total Bilirubin 0.4 mg/dL (0.15-1.2) 07/02/24 17:08 AST 13 U/L (0-40) 07/02/24 17:08 ALT 8 U/L (0-41) 07/02/24 17:08 Alkaline Phosphatase 70 U/L (40-130) 07/02/24 17:08 Troponin T Baseline 183 ng/L (0-15) H* 07/02/24 17:08 Troponin T 120 Minute 127.1 ng/L (0-15) H 07/02/24 19:20 Delta Troponin T -55.9 ABS# (0-10) L 07/02/24 19:20 NT-Pro-B Natriuret Pep 1057 pg/mL (0-125) H 07/02/24 17:08 Total Protein 5.2 g/dL (6.6-8.7) L 07/02/24 17:08 Albumin 4.3 g/dL (3.5-5.2) 07/02/24 17:08 Globulin 0.9 g/dL (1.3-4.6) L 07/02/24 17:08 TSH 2.40 uIU/mL (0.27-4.20) 11/07/24 17:08 All radiology interpretation(s) finalized by discharge Discharge Plan Discharge Patient Disposition: Home Clinical Impression: Supraventricular tachycardia, Dehydration, Hypomagnesemia Condition: Stable Prescriptions: No Action tamsulosin 0.4 mg capsule 0.4 mg PO DAILY fluticasone propionate 50 mcg/actuation spray,suspension 1 - 2 spray INTRANASAL DAILY cholecalciferol (vitamin D3) 25 mcg (1,000 unit) capsule 25 mcg PO BID hydromorphone 4 mg tablet 4 mg PO Q4H PRN (Reason: Pain) famotidine 20 mg tablet 20 mg PO BID Jardiance 25 mg tablet 25 mg PO DAILY ferrous sulfate 325 mg (65 mg iron) tablet 325 mg PO DAILY calcium polycarbophil 625 mg tablet 625 mg PO DAILY filgrastim 480 mcg/1.6 mL solution 480 mcg SUBCUT DAILY PRN (Reason: UNKNOWN) cyanocobalamin (vitamin B-12) 1,000 mcg capsule 1,000 mcg PO DAILY acetaminophen 325 mg capsule 650 mg PO Q6H PRN (Reason: Pain) loperamide 2 mg capsule 2 mg PO QID PRN (Reason: Diarrhea) tizanidine 2 mg capsule 2 mg PO BEDTIME PRN (Reason: Pain) atorvastatin 10 mg tablet 10 mg PO DAILY gabapentin 100 mg Capsule 100 mg PO EVERY OTHER DAY pantoprazole [Protonix] 40 mg tablet,delayed release (DR/EC) 40 mg PO BID 42 Days Qty: 84 1RF mycophenolate sodium 360 mg tablet,delayed release (DR/EC) 360 mg PO BID duloxetine 40 mg capsule,delayed release(DR/EC) 40 mg PO DAILY Envarsus XR 1 mg tablet extended release 24 hr 3 mg PO .EVERY OTHER DAY albuterol sulfate 90 mcg/actuation HFA aerosol inhaler 2 puff INHALATION Q6H PRN (Reason: Wheezing) ipratropium bromide 42 mcg (0.06 %) spray,non-aerosol 2 spray INTRANASAL QID PRN (Reason: ALLERGIES) finasteride 5 mg tablet 5 mg PO DAILY vitamin W45-yehtl acid 500-400 mcg Tablet 1 tab PO DAILY Rx Instructions: administer with a meal prednisone 5 mg tablet 5 mg PO DAILY diphenoxylate-atropine 2.5-0.025 mg tablet 2 tab PO DAILY PRN (Reason: Diarrhea) artificial tears(hypromellose) 0.3 % Drops 1 drp OPHTHALMIC (EYE) DAILY PRN (Reason: Itching) losartan 50 mg Tablet 100 mg PO DAILY ondansetron 4 mg Tablet,Disintegrating 4 mg PO Q8H PRN (Reason: Nausea And Vomiting) Veltassa 16.8 gram Powder In Packet 16.8 g PO BID PRN (Reason: Hyperkalemia) metoprolol tartrate 25 mg tablet 12.5 mg PO Q12H Qty: 30 0RF Discharge Orders: Discharge ED (Routine); Ordered 07/02/24 Ordered By: Deepa Ng Referrals: Jhony Kaur, [Primary Care Provider] - Discharge Diet: Usual diet Discharge Activity: Increase activity as tolerated Patient Instructions: Supraventricular Tachycardia (ED), Opioid Safety, Pain Management Activity Restrictions/Additional Instructions: Thank you for choosing [facility] for your healthcare needs today. Please realize this is an emergency room and that we are providing you with a medical screening exam and this may not be complete and all inclusive of all the testing and or work up that you may need to determine your ailment or severity of your illness. You have been screened and evaluated and felt safe for discharge. Health conditions do change or evolve sometimes and as such it is important that you follow up with your Primary Doctor to be re checked, 3-5 days is a general good time frame for follow up. You are always welcome to return to the ED for re assessment if your symptoms are worsening or you have new concerns Coding Level of Care Code ED Communications Department Chairperson for Audrey Almanza
[2024-07-02 17:50] LABS: Alanine Aminotransferase 8 U/L (0-41); Albumin Level 4.3 g/dL (3.5-5.2); Alkaline Phosphatase 70 U/L (40-130); Anion Gap 18.2 (5-19); Aspartate Amino Transferase 13 U/L (0-40); Blood Urea Nitrogen 26 mg/dL (6-20); Carbon Dioxide 19 mmol/L (22-29); Chloride 107 mmol/L (98-107); Creatinine Clr Calc Pharmacy 45.1107; Globulin 0.9 g/dL (1.3-4.6); Glomerular Filtration Rate 34.5 mL/min (90-130); Glucose 105 mg/dL (65-115); Magnesium 1.6 mg/dL (1.7-2.3); NT Pro B Type Natriuretic Pept 1057 pg/mL (0-125); Osmolality Calculated 295 mOsm/kg (285-295); Potassium 4.2 mmol/L (3.5-5.1); Sodium 140 mmol/L (136-145); Total Bilirubin 0.4 mg/dL (0.15-1.2); Total Protein 5.2 g/dL (6.6-8.7)
[2024-07-02 17:54] LABS: Troponin(5th) Baseline 183 ng/L (0-15)
[2024-07-02 18:00] LABS: Slide Review Slide Review Perform
[2024-07-02] MEDS: sodium chloride 0.9% 500 ML 999 ML IV (18:43)
--- NOTE | 2024-07-02 19:14 | PC.NURSE ---
Addendum entered by Amy Tsang RN 07/02/24 19:17: Pt given 1 mg of Metoprolol. MD said to hold the rest of Metoprolol as RN was administering, 4 mg of metoprolol not administered. 4 mg of metoprolol given to scene shifter RN incase of need. Original Note: Pt given 1 mg of Metoprolol. MD said to hold the rest of Metoprolol as RN was administering, 4 mg of metoprolol not administered. $
--- NOTE | 2024-07-02 19:17 | ECG_ITS ---
[facility] Test Date: 2024-07-02 Pat Name: Mark Mccabe Department: Room: Gender: Male [employer] Caretaker: : 1965 Requested By: Deepa Lawrence Order Number: [id number] Mirian MD: MARRY DEWEY Measurements Intervals [place] Rate: 84 P: 39 [place]: 180 QRS: -57 QRSD: 101 T: 65 QT: 333 QTc: 394 Interpretive Statements SINUS RHYTHM LEFT AXIS DEVIATION [QRS AXIS < -30] LOW QRS VOLTAGE IN PRECORDIAL LEADS [QRS DEFLECTION < 1.0 mV IN CHEST LEADS] MODERATE VOLTAGE CRITERIA FOR LVH, CONSIDER NORMAL VARIANT [MEETS CRITERIA IN ONE OF: R(aVL), S(V1), R(V5), R(V5/V6)+S(V1)] POSSIBLE ANTERIOR MYOCARDIAL INFARCTION , PROBABLY OLD [30 ms Q WAVE IN V3/V4, OR R < 0.2 mV IN V4] Compared to ECG 07/02/2024 17:28:20 Left-axis deviation now present Sinus arrhythmia no longer present Electronically Signed On 07-03-2024 00:28:30 ROLE PLAYER by MARRY DEWEY [id number]
--- NOTE | 2024-07-02 19:17 | CTR_ITS ---
PROCEDURE INFORMATION: Exam: CT Chest Without Contrast; Diagnostic Exam date and time: 07/02/2024 7:30 PM Age: 59 years old Clinical indication: Abnormal findings; Abnormal radiologic exam of lung or chest; Additional info: Abnormal chest xray TECHNIQUE: Imaging protocol: Diagnostic computed tomography of the chest without contrast. Radiation optimization: All CT scans at this facility use at least one of these dose optimization techniques: automated exposure control; mA and/or kV adjustment per patient size (includes targeted exams where dose is matched to clinical indication); or iterative reconstruction. COMPARISON: [place] [id number] 05/23/2024 11:22 PM RADIATION DOSE METRICS: Total DLP (mGy-cm): 546.24 FINDINGS: Lungs: A previously seen right upper lobe opacity now has more defined margins in the slightly larger measuring 1.6 x 1.1 cm. Previously this measured 1.0 x 1.0 cm. In the left lower lobe superior segment near the pleura there is an unchanged 6 mm noncalcified nodule. In the middle lobe there are several chronic 2 mm noncalcified nodules. Multiple additional smaller nodules scattered in both lungs. Pleural spaces: Unremarkable. No pneumothorax. No pleural effusion. Heart: The heart size is normal. Coronary arteries: No calcified plaque in the coronary arteries. Lymph nodes: Unremarkable. No enlarged lymph nodes. Vasculature: The ascending thoracic aorta remains enlarged currently measuring 4.6 cm. The descending thoracic aorta is normal in size. Liver: The visualized portions of the liver and spleen are normal. The gallbladder is surgically absent. The kidneys are atrophic. Bones/joints: Unremarkable. No acute fracture. Soft tissues: Unremarkable. Other findings: There are several calcified granulomas. CT/CT chest wo con [id number] IMPRESSION: 1. A right upper lobe noncalcified nodule is increased in size, now 1.6 cm. However is still unclear if this is inflammatory or neoplastic. Consider short-term follow-up or PET. 2. Additional bilateral noncalcified lung nodules are unchanged. 3. No adenopathy. 4. Unchanged enlarged ascending thoracic aorta up to 4.6 cm.
[2024-07-02 20:00] LABS: Troponin 5 2HR 127.1 ng/L (0-15); Troponin 5 2HR Delta -55.9 ABS# (0-10)
[2024-07-02] MEDS: magnesium sulfate premix 2 GM/50 ML PIGGYBACK IV (20:17)
== END 2024-07-02 21:33 | disposition home or self-care (01) ==
PROVIDERS: Emergency Provider Emergency Medicine; PCP Internal Medicine
DX: I47.10 Supraventricular tachycardia, unspecified (principal); E86.0 Dehydration; E83.42 Hypomagnesemia; Z87.891 Personal history of nicotine dependence; I12.0 Hypertensive chronic kidney disease with stage 5 chronic kidney disease or end stage renal disease; N18.6 End stage renal disease; E78.5 Hyperlipidemia, unspecified
CPT/HCPCS: 36415; 71045; 71250; 80053; 83735; 83880; 84443; 84484; 85025; 93005; 96374; 96375; 99285; J0153; J0282; J3475; J3490; J7040

== ENCOUNTER 2024-07-03 08:27 | Outpatient (CLI) | payer OTHER, MEDICARE, SELFPAY ==
--- NOTE | 2024-07-03 08:30 | CTR_ITS ---
PROCEDURE INFORMATION: Exam: CT Chest Without Contrast; Diagnostic Exam date and time: 07/03/2024 8:31 AM Age: 59 years old Clinical indication: Condition or disease; Lung condition and disease; Pulmonary nodule, solitary; Patient HX: Patient seen in er last night for tachycardia; Additional info: Multiple lung nodules TECHNIQUE: Imaging protocol: Diagnostic computed tomography of the chest without contrast. Radiation optimization: All CT scans at this facility use at least one of these dose optimization techniques: automated exposure control; mA and/or kV adjustment per patient size (includes targeted exams where dose is matched to clinical indication); or iterative reconstruction. COMPARISON: CT chest wo con [id number] 07/02/2024 7:30 PM RADIATION DOSE METRICS: Total DLP (mGy-cm): 490.53 FINDINGS: Thyroid: Thyroid is normal. Lungs: 1.8 cm pulmonary nodule in the right upper lobe (axial series 4 image 22). Multiple additional small pulmonary nodules, measuring up to 0.6 cm, scattered about the bilateral lungs. No large focal consolidation. Multiple additional tiny calcified granulomas in the bilateral lungs. Pleural spaces: No pleural effusion. No pneumothorax. Heart: Heart is normal in size. No pericardial effusion. Coronary arteries: Minimal coronary artery calcification. Lymph nodes: No distinct pathologically enlarged lymphadenopathy. Vasculature: Minimal scattered calcific disease of the thoracic aorta. Mild ectasia of the aortic root up to 4.2 cm. Gallbladder and biliary ducts: Status post cholecystectomy. Kidneys: Partially imaged left kidney is severely atrophic. Bones/joints: No acute osseous findings. Soft tissues: Moderate left gynecomastia. CT/CT chest wo con [id number] IMPRESSION: 1.8 cm pulmonary nodule in the right upper lobe (axial series 4 image 22). Multiple additional small pulmonary nodules, measuring up to 0.6 cm, scattered about the bilateral lungs. This is not significantly changed compared to 07/02/2024. Recommend follow-up per previous recommendations on 07/02/2024.
== END 2024-07-03 08:28 | disposition home or self-care (01) ==
LOC: RAD 08:28
PROVIDERS: PCP Internal Medicine; Visit Provider Physician Assistant
DX: R91.8 Other nonspecific abnormal finding of lung field (principal)
CPT/HCPCS: 71250

== ENCOUNTER 2024-07-15 13:07 | Observation (INO) | payer OTHER, MEDICARE, SELFPAY ==
[2024-07-15] VITALS (13 sets, daily range): BP systolic 86–111; BP diastolic 60–68; PULSE 68–202; RESP 15–24; TEMP 36.3–37.3; O2SAT 77–100
--- NOTE | 2024-07-15 13:08 | XR_ITS ---
WS: [id number] Exam: XR chest 1V portable [id number] Date/Time of Exam: 07/15/2024 1:11 PM Reason For Exam: cp Comparison 07/02/2024. The lungs are clear and fully inflated. Unremarkable cardiomediastinal silhouette. No pleural effusio ns. Bony structures are intact. Degenerative change of both shoulders most severe on the RIGHT. Monit oring leads and a battery pack superimposes the chest. XR/XR chest 1V portable [id number] IMPRESSION: 1. No acute cardiopulmonary finding.
--- NOTE | 2024-07-15 13:15 | ECG_ITS ---
[employer] Test Date: 2024-07-15 Pat Name: Mark Mccabe Department: Room: Gender: Male [employer]: : 1965 Requested By: Tami Sparks Order Number: [id number] Mirian MD: MARRY DEWEY Measurements Intervals [place] Rate: 204 P: 0 [place]: 0 QRS: -51 QRSD: 114 T: 109 QT: 228 QTc: 420 Interpretive Statements SUPRAVENTRICULAR TACHYCARDIA PATTERN CONSISTENT WITH PULMONARY DISEASE LEFT ANTERIOR FASCICULAR BLOCK [QRS AXIS <= -45, QR IN I, RS IN II] LEFT VENTRICULAR HYPERTROPHY AND ST-T CHANGE [VOLTAGE CRITERIA PLUS ST/T ABNORMALITY] CRITICAL TEST RESULT Compared to ECG 07/02/2024 19:17:11 Left anterior fascicular block now present ST (T wave) deviation now present Sinus rhythm no longer present Left-axis deviation no longer present Myocardial infarct finding no longer present Electronically Signed On 07-15-2024 17:19:44 OPTIMIZATION SPECIALIST by MARRY DEWEY [id number]
--- NOTE | 2024-07-15 13:19 | ED_ITS ---
HPI - Arrhythmia/Palpitations 2 General: Chief Complaint: Chest Pain Stated Complaint: CP Time Seen by Provider: 07/15/24 13:19 History of Present Illness: 59-year-old male who presents to the [facility] room complaining of chest pain and rapid heart rate. Patient has had history of SVT in the past. He currently is on metoprolol for this. Has been going on for a couple of hours. Has not been able to get it slow down. No radiation of the chest pain. The discomfort originates in the mid sternum retrosternally. He is nauseous with it but has not vomited and has not been diaphoretic. Related Data Home Medications Medication Instructions Recorded Confirmed cholecalciferol (vitamin D3) 25 25 mcg PO QAM 01/14/20 07/15/24 mcg (1,000 unit) capsule fluticasone propionate 50 2 spray intranasal DAILY PRN 01/14/20 07/15/24 mcg/actuation nasal Allergy Symptoms spray,suspension tamsulosin 0.4 mg capsule 0.4 mg PO QAM 01/14/20 07/15/24 atorvastatin 10 mg tablet 10 mg PO BEDTIME 02/13/21 07/15/24 famotidine 20 mg tablet 20 mg PO BID 07/11/21 07/15/24 hydromorphone 4 mg tablet 4 mg PO Q4H PRN Pain 07/11/21 07/15/24 diphenoxylate-atropine 2.5 2 tab PO QID PRN Diarrhea 01/16/22 07/15/24 mg-0.025 mg tablet prednisone 5 mg tablet 5 mg PO QAM 01/16/22 07/15/24 acetaminophen 325 mg capsule 650 mg PO Q4H PRN Pain 03/20/22 07/15/24 loperamide 2 mg capsule 2 mg PO QID PRN Diarrhea 03/20/22 07/15/24 artificial tears(hypromellose) 0.3 1 drp ophthalmic (eye) DAILY PRN 03/13/23 07/15/24 % eye drops Itching losartan 50 mg tablet 25 mg PO DAILY 03/13/23 07/15/24 ondansetron 4 mg disintegrating 4 mg PO Q8H PRN Nausea And Vomiting 03/13/23 07/15/24 tablet patiromer calcium sorbitex 16.8 See Rx Instructions .Route 03/13/23 07/15/24 gram oral powder packet (Veltamaiaa) .COMPLEX PRN Hyperkalemia empagliflozin 25 mg tablet 25 mg PO QAM 06/06/23 07/15/24 (Jardiance) cyanocobalamin (vitamin B-12) 1,000 mcg PO QAM 08/08/23 07/15/24 1,000 mcg capsule ferrous sulfate 325 mg (65 mg 325 mg PO QAM 08/08/23 07/15/24 iron) tablet filgrastim 480 mcg/1.6 mL 480 mcg SUBCUT DAILY PRN UNKNOWN 08/08/23 07/15/24 injection solution finasteride 5 mg tablet 10 mg PO QAM 12/11/23 07/15/24 ipratropium bromide 42 mcg (0.06 2 spray intranasal QID ALLERGIES 12/11/23 07/15/24 %) nasal spray mycophenolate sodium 360 mg 360 mg PO BID 12/11/23 07/15/24 tablet,delayed release apixaban 5 mg tablet (Eliquis) 5 mg PO BID 07/15/24 07/15/24 calcium polycarbophil 625 mg 625 mg PO QAM 07/15/24 07/15/24 tablet (FiberCon) cholestyramine-aspartame 4 gram See Rx Instructions .Route .COMPLEX 07/15/24 07/15/24 oral powder for susp in a packet duloxetine 60 mg capsule,delayed 60 mg PO QAM 07/15/24 07/15/24 release gabapentin 300 mg capsule 300 mg PO QAM 07/15/24 07/15/24 megestrol 400 mg/10 mL (40 mg/mL) 400 mg PO QAM 07/15/24 07/15/24 oral suspension metoclopramide HCl 5 mg tablet 5 mg PO TID 07/15/24 07/15/24 mupirocin 2 % topical ointment 1 applic topical BID wound on 07/15/24 07/15/24 right arm sodium bicarbonate 650 mg tablet 1,300 mg PO BID 07/15/24 07/15/24 tacrolimus 0.75 mg tablet,extended 1.5 mg PO QAM 07/15/24 07/15/24 release 24 hr (Envarsus XR) tizanidine 4 mg tablet 2 - 4 mg PO BEDTIME PRN Spasms 07/15/24 07/15/24 Previous Rx's Medication Instructions Recorded pantoprazole 40 mg tablet,delayed 40 mg PO BID 6 weeks #84 tabs 04/12/23 release (Protonix) aspirin 81 mg tablet,delayed 81 mg PO DAILY #90 tabs 07/16/24 release magnesium L-threonate 48 mg 48 mg PO DAILY #90 caps 07/16/24 magnesium (667 mg) capsule metoprolol succinate 25 mg 50 mg (2 x 25 mg) PO QAM #30 tabs 07/16/24 tablet,extended release 24 hr Allergies Allergy/AdvReac Type Severity Reaction Status Date / Time No Known Allergies Allergy Verified 12/11/23 08:13 Review of Systems 2 Const: Denies: fever(s) or chills Card: Reports: chest pain, palpitations and irregular heart rhythm Resp: Denies: dyspnea GI: Denies: abdominal pain : Denies: dysuria, urinary frequency or urinary urgency Musc: Denies: neck pain or back pain Skin/Breast: Denies: rash 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 Carpal tunnel syndrome, bilateral upper limbs Surgical History Hx of colonoscopy less than 1 year, no polyps History of esophagogastroduodenoscopy (EGD) less than 1 year History of bilateral carpal tunnel release History of right breast biopsy for benign disease History of thoracotomy with chest tube, for pneumonia History of kidney transplant (09/2021) History of cholecystectomy History of umbilical hernia repair History of arthroscopic knee surgery x 3 History of arthroscopy of right shoulder Family History Father CAD (coronary artery disease) Chronic kidney disease (CKD) Mother Arthritis Other Diabetes Hyperlipidemia Hypertension Denies family history of Clotting disorder Dementia Psychiatric illness Suicide Anesthesia complication Bleeding disorder Lung disease Cancer Stroke Social History Smoking and tobacco/nicotine status: former use of tobacco/nicotine (Smoked for 15 years) Alcohol intake: never Substance/Drug Use: never Household members: spouse Marital status: Current occupational status: disabled Physical Exam 2 Const: GENERAL APPEARANCE: cooperative ORIENTATION/CONSCIOUSNESS: Yes awake, Yes oriented to person, Yes oriented to place and Yes oriented to time HENMT: COMMON NORMALS: normocephalic, atraumatic and hearing grossly normal bilaterally HEAD & SCALP: normocephalic and atraumatic Resp: COMMON NORMALS: normal respiratory effort, No retractions, No use of accessory muscles and clear to auscultation bilaterally AUSCULTATION: clear to auscultation bilaterally Cardio: COMMON NORMALS: regular rate, regular rhythm and No murmurs present (Cardio) RATE: regular rate RHYTHM: regular rhythm GI: COMMON NORMALS: Soft to palpation and No hepatosplenomegaly present A USCULTATION: Yes normoactive bowel sounds PALPATION: Yes Soft to palpation, No Tenderness to palpation present (GI), No Guarding due to palpation present (GI) and Yes No hepatosplenomegaly present Extremity: COMMON NORMALS: normal to inspection, capillary refill normal, no clubbing, cyanosis or edema, no calf tenderness and no pedal edema Neuro: SENSORIUM/ORIENTATION: Yes oriented to person, Yes oriented to place and Yes oriented to time Skin: COMMON NORMALS: no rashes or lesions noted GENERAL SKIN EXAM: no rashes or lesions noted Course 2 Vital Signs: Vital signs: Vital Signs Temperature 97.9 F 07/16/24 09:00 Pulse Rate 83 07/16/24 12:18 Respiratory Rate 24 H 07/16/24 12:18 Blood Pressure 128/75 07/16/24 12:18 Pulse Oximetry 100 07/16/24 12:18 Oxygen Delivery Me thod Room Air 07/16/24 12:00 MDM - Arrhythmia/Palpitations Medical Decision Making Initial EKG shows SVT with a rate of 204. Will attempt I arrived in the room nursing staff was initiating IV access. Asked to place patient on a ZOLL he sat forward for them to place the back pad. He was in that position for period of time while the nurse adjusted his shirt to get the pad properly positioned this created enough prolonged increased intra-abdominal pressure to create a vagal response and when he laid back down his heart rate decreased almost immediately to just a little over 100 his symptoms have been relieved. We had intended to give adenosine prepping to do so however once a vagal maneuver broke the SVT was no longer needed. Patient has had several episodes of this he is anemic. Additionally his troponin is elevated he has not had full cardiac workup before likely will need medication adjustment as well. Discussed with hospitalist will admit to observation. Orders written Medical Records I reviewed the patient's medical records. Lab Data I reviewed the patient's lab results. 07/16/24 03:55 07/16/24 03:55 Radiology Impressions Chest X-Ray 07/15/24 13:08 IMPRESSION: 1. No acute cardiopulmonary finding. Laboratory Results WBC 7.95 10^3/uL (3.29-11.43) 07/15/24 13:34 RBC 3.64 10^6/uL (3.85-5.65) L 07/15/24 13:34 Hgb 10.90 g/dL (11.27-16.99) L 07/15/24 13:34 Hct 34.7 % (37-53) L 07/15/24 13:34 MCV 95.3 fl (82-101) 07/15/24 13:34 MCH 29.9 pg (27-33) 07/15/24 13:34 MCHC 31.4 g/dL (30-55) 07/15/24 13:34 RDW 16.4 % (12.1-15.1) H 07/15/24 13:34 Plt Count 271 10^3/cmm (157-399) 07/15/24 13:34 MPV 9.3 fL (7.4-10.4) 07/15/24 13:34 Neut % (Auto) 39.9 % 07/15/24 13:34 Lymph % (Auto) 37.5 % 07/15/24 13:34 [place] % (Auto) 21.0 % 07/15/24 13:34 Eos % (Auto) 1.3 % 07/15/24 13:34 Baso % (Auto) 0.3 % 07/15/24 13:34 Neut # (Auto) 2.61 10^3/uL (1.8-7.7) 07/15/24 13:34 Lymph # (Auto) 3.0 10^3/uL (0.8-4.8) 07/15/24 13:34 [place] # (Auto) 1.7 10^3/uL (0.2-0.9) H 07/15/24 13:34 Eos # (Auto) 0.1 10^3/uL (0.0-0.8) 07/15/24 13:34 Baso # (Auto) 0.0 10^3/uL (0.0-0.1) 07/15/24 13:34 Nucleated RBC % (auto) 0 % 07/15/24 13:34 Nucleated RBCs # 0.0 /100WBC 07/15/24 13:34 PT 14.50 SECONDS (12.1-14.9) 07/15/24 13:34 INR 1.09 (0.8-1.2) 07/15/24 13:34 Sodium 138 mmol/L (136-145) 07/15/24 13:34 Potassium 4.3 mmol/L (3.5-5.1) 07/15/24 13:34 Chloride 106 mmol/L (98-107) 07/15/24 13:34 Carbon Dioxide 17 mmol/L (22-29) L 07/15/24 13:34 Anion Gap 19.3 (5-19) H 07/15/24 13:34 BUN 24 mg/dL (6-20) H 07/15/24 13:34 Creatinine 1.8 mg/dL (0.7-1.2) H 07/15/24 13:34 GFR Calculation 38.9 mL/min (90-130) L 07/15/24 13:34 Glucose 150 mg/dL (65-115) H 07/15/24 13:34 Calculated Osmolality 293 mOsm/kg (285-295) 07/15/24 13:34 Calcium 9.1 mg/dL (8.5-10.5) 07/15/24 13:34 Magnesium 1.8 mg/dL (1.7-2.3) 07/15/24 13:34 Total Bilirubin 0.5 mg/dL (0.15-1.2) 07/15/24 13:34 AST 15 U/L (0-40) 07/15/24 13:34 ALT 6 U/L (0-41) 07/15/24 13:34 Alkaline Phosphatase 47 U/L (40-130) 07/15/24 13:34 Troponin T Baseline 190 ng/L (0-15) H* 07/15/24 13:34 Total Protein 5.7 g/dL (6.6-8.7) L 07/15/24 13:34 Albumin 4.6 g/dL (3.5-5.2) 07/15/24 13:34 Globulin 1.1 g/dL (1.3-4.6) L 07/15/24 13:34 Lipase 69 U/L (13-60) H 07/15/24 13:34 TSH 2.62 uIU/mL (0.27-4.20) 07/15/24 13:34 All radiology interpretation(s) finalized by discharge Discharge Plan Discharge Patient Disposition: Admitted As Inpatient Admit Provider: Rober Krueger Clinical Impression: SVT (supraventricular tachycardia), Kidney transplant recipient, FSGS (focal segmental glomerulosclerosis) Condition: Stable Discharge Diet: Usual diet and Cardiac Coding Level of Care Code ED Wire Annealer for Audrey Almanza
--- NOTE | 2024-07-15 13:28 | ECG_ITS ---
[facility] Test Date: 2024-07-15 Pat Name: Mark Mccabe Department: Room: Gender: Male Racing Secretary And Handicapper: : 1965 Requested By: Franky Lawrence Order Number: [id number] Vela MD: Darron Castanon M.D. Measurements Intervals [place] Rate: 100 P: 53 VT: 172 QRS: -40 QRSD: 116 T: 110 QT: 327 QTc: 422 Interpretive Statements SINUS TACHYCARDIA WITH OCCASIONAL SUPRAVENTRICULAR PREMATURE COMPLEXES LEFT AXIS DEVIATION [QRS AXIS < -30] INCOMPLETE RIGHT BUNDLE BRANCH BLOCK [90+ ms QRS DURATION, TERMINAL R IN V1/V2, 40+ ms S IN I/aVL/V4/V5/V6] VOLTAGE CRITERIA FOR LVH [MEETS CRITERIA IN ONE OF: R(aVL), S(V1), R(V5), R(V5/V6)+S(V1)].POSSIBLE SEPTAL MYOCARDIAL INFARCTION , OF INDETERMINATE AGE [30 ms Q WAVE IN V1/V2] MODERATE T-WAVE ABNORMALITY, CONSIDER LATERAL ISCHEMIA [-0.1+ mV T-WAVE IN I/aVL/V5/V6].Compared to ECG 07/15/2024 13:15:28.Left-axis deviation now present.Incomplete right bundle-branch block now present.Myocardial infarct finding now present Electronically Signed On 07-15-2024 18:08:54 TEACHER SPECIALIST by Darron Castanon M.D. [email or web address]
[2024-07-15 13:54] LABS: INR 1.09 (0.8-1.2)
[2024-07-15 14:00] LABS: Alanine Aminotransferase 6 U/L (0-41); Albumin Level 4.6 g/dL (3.5-5.2); Alkaline Phosphatase 47 U/L (40-130); Anion Gap 19.3 (5-19); Aspartate Amino Transferase 15 U/L (0-40); Blood Urea Nitrogen 24 mg/dL (6-20); Calcium 9.1 mg/dL (8.5-10.5); Carbon Dioxide 17 mmol/L (22-29); Chloride 106 mmol/L (98-107); Creatinine Clr Calc Pharmacy 52.4188; Globulin 1.1 g/dL (1.3-4.6); Glomerular Filtration Rate 38.9 mL/min (90-130); Glucose 150 mg/dL (65-115); Lipase 69 U/L (13-60); Osmolality Calculated 293 mOsm/kg (285-295); Potassium 4.3 mmol/L (3.5-5.1); Sodium 138 mmol/L (136-145); Total Bilirubin 0.5 mg/dL (0.15-1.2); Total Protein 5.7 g/dL (6.6-8.7)
[2024-07-15 14:03] LABS: Troponin(5th) Baseline 190 ng/L (0-15)
[2024-07-15 14:24] LABS: Basophils % 0.3 %; Eosinophils # 0.1 10^3/uL (0.0-0.8); Eosinophils % 1.3 %; Hematocrit 34.7 % (37-53); Lymphocytes % 37.5 %; Mean Corpuscular HGB Conc 31.4 g/dL (30-55); Mean Corpuscular Hemoglobin 29.9 pg (27-33); Mean Corpuscular Volume 95.3 fl (82-101); Mean Platelet Volume 9.3 fL (7.4-10.4); Monocytes # 1.7 10^3/uL (0.2-0.9); Neutrophils # 2.61 10^3/uL (1.8-7.7); Nucleated Red Blood Cells % 0 %; Platelet Count 271 10^3/cmm (157-399); Red Blood Count 3.64 10^6/uL (3.85-5.65); Red Cell Distribution Width 16.4 % (12.1-15.1); Slide Review Slide Review Perform; White Blood Count 7.95 10^3/uL (3.29-11.43)
[2024-07-15] MEDS: sodium chloride 0.9% 500 ML 999 ML IV (14:25)
[2024-07-15 14:28] LABS: Neutrophils % 39.9 %
--- NOTE | 2024-07-15 15:09 | ECG_ITS ---
[facility] Test Date: 2024-07-15 Pat Name: Mark Mccabe Department: Room: 108 Gender: Male Blood Collector: : 1965 Requested By: Tami Sparks Order Number: [id number] Mirian MD: MARRY DEWEY Measurements Intervals [place] Rate: 74 P: 44 CT: 168 QRS: -50 QRSD: 94 T: 85 QT: 340 QTc: 378 Interpretive Statements SINUS RHYTHM PATTERN CONSISTENT WITH PULMONARY DISEASE LEFT ANTERIOR FASCICULAR BLOCK [QRS AXIS <= -45, QR IN I, RS IN II] VOLTAGE CRITERIA FOR LVH [MEETS CRITERIA IN ONE OF: R(aVL), S(V1), R(V5), R(V5/V6)+S(V1)] NONSPECIFIC T-WAVE ABNORMALITY Compared to ECG 07/15/2024 13:28:00 Left anterior fascicular block now present Sinus tachycardia no longer present Left-axis deviation no longer present Incomplete right bundle-branch block no longer present Myocardial infarct finding no longer present Electronically Signed On 07-15-2024 18:07:30 AIRCRAFT LOAD CONTROLLER by MARRY DEWEY [email or web address]
--- NOTE | 2024-07-15 15:51 | P.HP_ITS ---
Providers/Chief Complaint 2 Admitting Physician: Rober Krueger Primary Care Provider: Jhony Kaur DO Chief Complaint: CP History of Present Illness Pleasant 59-year-old gentleman with history of ESRD, kidney transplantation, CKD, currently receiving plasmapheresis twice a week on Mondays and Fridays in [place], on immunosuppression with tacrolimus, mycophenolate, with history of atrial fibrillation on anticoagulation with Eliquis, history of coronary disease previously noted on stress testing back in 2019, HTN, HLD, pulmonary hypertension, HUE, other medical problems presented to emergency room due to chest pain and rapid heart rate, noted to be as high as 200s on presentation with noted SVT on the monitor. Carotid massage was not successful and breaking the arrhythmia, adenosine was being set up and pads were being prepared per OCT, with repositioning in bed for application of pacer pads he spontaneously converted to sinus rhythm. Troponin noted with elevation up to 190. He was in the hospital several weeks ago evaluated in ER also due to an episode of SVT. 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 She denies any other acute recent illness or medication changes. Review of Systems 2 Const: Denies: fever(s), chills, body aches or malaise ENMT: Denies: throat pain Card: Reports: chest pain and palpitations; Denies: edema or dyspnea on exertion Resp: Denies: dyspnea, productive cough, change in phlegm color or hemoptysis GI: Denies: abdominal pain, nausea, vomiting, diarrhea, constipation, hematochezia or melena : Denies: flank pain, difficulty urinating, urinary frequency or hematuria Musc: Denies: back pain, joint swelling or joint redness Skin/Breast: Denies: rash or new lesions Neuro: Denies: headache(s) or confusion Endo: Denies: polyuria or polydipsia Medications/Allergies Home Medications Medication Instructions Recorded Confirmed Last Taken Type cholecalciferol (vitamin D3) 25 25 mcg PO QAM 01/14/20 07/15/24 01/22/24 History mcg (1,000 unit) capsule fluticasone propionate 50 2 spray intranasal DAILY PRN 01/14/20 07/15/24 01/22/24 History mcg/actuation nasal Allergy Symptoms spray,suspension tamsulosin 0.4 mg capsule 0.4 mg PO QAM 01/14/20 07/15/24 07/15/24 History atorvastatin 10 mg tablet 10 mg PO BEDTIME 02/13/21 07/15/24 07/14/24 History famotidine 20 mg tablet 20 mg PO BID 07/11/21 07/15/24 07/15/24 History hydromorphone 4 mg tablet 4 mg PO Q4H PRN Pain 07/11/21 07/15/24 11/28/22 History diphenoxylate-atropine 2.5 2 tab PO QID PRN Diarrhea 01/16/22 07/15/24 11/28/22 History mg-0.025 mg tablet prednisone 5 mg tablet 5 mg PO QAM 01/16/22 07/15/24 07/15/24 History acetaminophen 325 mg capsule 650 mg PO Q4H PRN Pain 03/20/22 07/15/24 11/28/22 History loperamide 2 mg capsule 2 mg PO QID PRN Diarrhea 03/20/22 07/15/24 11/28/22 History artificial tears(hypromellose) 0.3 1 drp ophthalmic (eye) DAILY PRN 03/13/23 07/15/24 Unknown History % eye drops Itching losartan 50 mg tablet 25 mg PO DAILY 03/13/23 07/15/24 07/15/24 History ondansetron 4 mg disintegrating 4 mg PO Q8H PRN Nausea And Vomiting 03/13/23 07/15/24 Unknown History tablet patiromer calcium sorbitex 16.8 See Rx Instructions .Route 03/13/23 07/15/24 07/15/24 History gram oral powder packet (Veltassa) .COMPLEX PRN Hyperkalemia pantoprazole 40 mg tablet,delayed 40 mg PO BID 6 weeks #84 tabs 04/12/23 07/15/24 07/15/24 Rx release (Protonix) empagliflozin 25 mg tablet 25 mg PO QAM 06/06/23 07/15/24 07/15/24 History (Jardiance) cyanocobalamin (vitamin B-12) 1,000 mcg PO QAM 08/08/23 07/15/24 07/15/24 History 1,000 mcg capsule ferrous sulfate 325 mg (65 mg 325 mg PO QAM 08/08/23 07/15/2407/15/24 History iron) tablet filgrastim 480 mcg/1.6 mL 480 mcg SUBCUT DAILY PRN UNKNOWN 08/08/23 07/15/24 Unknown History injection solution finasteride 5 mg tablet 10 mg PO QAM 12/11/23 07/15/24 07/15/24 History ipratropium bromide 42 mcg (0.06 2 spray intranasal QID ALLERGIES 12/11/23 07/15/24 07/15/24 History %) nasal spray mycophenolate sodium 360 mg 360 mg PO BID 12/11/23 07/15/24 07/15/24 History tablet,delayed release apixaban 5 mg tablet (Eliquis) 5 mg PO BID 07/15/24 07/15/24 07/15/24 History calcium polycarbophil 625 mg 625 mg PO QAM 07/15/24 07/15/24 07/15/24 History tablet (FiberCon) cholestyramine-aspartame 4 gram See Rx Instructions .Route .COMPLEX 07/15/24 07/15/24 07/15/24 History oral powder for susp in a packet duloxetine 60 mg capsule,delayed 60 mg PO QAM 07/15/24 07/15/24 07/15/24 History release gabapentin 300 mg capsule 300 mg PO QAM 07/15/24 07/15/24 07/15/24 History megestrol 400 mg/10 mL (40 mg/mL) 400 mg PO QAM 07/15/24 07/15/24 07/15/24 History oral suspension metoclopramide HCl 5 mg tablet 5 mg PO TID 07/15/24 07/15/24 07/15/24 History metoprolol succinate 25 mg 25 mg PO QAM 07/15/24 07/15/24 07/15/24 History tablet,extended release 24 hr mupirocin 2 % topical ointment 1 applic topical BID wound on 07/15/24 07/15/24 07/15/24 History right arm sodium bicarbonate 650 mg tablet 1,300 mg PO BID 07/15/24 07/15/24 07/15/24 History tacrolimus 0.75 mg tablet,extended 1.5 mg PO QAM 07/15/24 07/15/24 07/15/24 History release 24 hr (Envarsus XR) tizanidine 4 mg tablet 2 - 4 mg PO BEDTIME PRN Spasms 07/15/24 07/15/24 Unknown History Allergies Allergy/AdvReac Type Severity Reaction Status Date / Time No Known Allergies Allergy Verified 12/11/23 08:13 PFSH Acute 2 PFSH: Medical History 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 therapy Gout Benign prostatic hyperplasia Peptic ulcer disease Obstructive sleep apnea Fibromyalgia Degenerative joint disease of spine Degenerative arthritis History of peritonitis In association with peritoneal dialysis FSGS (focal segmental glomerulosclerosis), tip variant with nephrosis Pulmonary hypertension associated with ESRD on dialysis Hypertension Hyperlipidemia ESRD (end stage renal disease) 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 Carpal tunnel syndrome, bilateral upper limbs Surgical History Hx of colonoscopy less than 1 year, no polyps History of esophagogastroduodenoscopy (EGD) less than 1 year History of bilateral carpal tunnel release History of right breast biopsy for benign disease History of thoracotomy with chest tube, for pneumonia History of kidney transplant (09/2021) History of cholecystectomy History of umbilical hernia repair History of arthroscopic knee surgery x 3 History of arthroscopy of right shoulder Family History Father CAD (coronary artery disease) Chronic kidney disease (CKD) Mother Arthritis Other Diabetes Hyperlipidemia Hypertension Denies family history of Clotting disorder Dementia Psychiatric illness Suicide Anesthesia complication Bleeding disorder Lung disease Cancer Stroke Social History Smoking and tobacco/nicotine status: former use of tobacco/nicotine (Smoked for 15 years) Alcohol intake: never Substance/Drug Use: never Household members: spouse Marital status: Current occupational status: disabled Vitals/I&O/Wt Last Vital Signs Pulse 75 07/15/24 15:40 Resp 15 07/15/24 15:40 BP 109/68 07/15/24 15:40 Pulse Ox 100 07/15/24 15:40 07/15/24 07/15/24 07/15/24 06:59 14:59 22:59 Intake Total 500 / 500 Balance 500 / 500 Weight last 48 hrs Weight 90.718 kg Physical Exam 2 Narrative: Accompanied by his . Const: COMMON NORMALS: patient oriented x3 and alert GENERAL APPEARANCE: c ooperative ORIENTATION/CONSCIOUSNESS: Yes awake HENMT: COMMON NORMALS: oropharynx normal Neck/C-Spine: COMMON NORMALS: no JVD Resp: COMMON NORMALS: normal respiratory effort and clear to auscultation bilaterally AUSCULTATION: clear to auscultation bilaterally Cardio: COMMON NORMALS: no JVD, regular rhythm, S1 normal heart sound present, S2 normal heart sound present and No murmurs present (Cardio) RHYTHM: regular rhythm HEART SOUNDS: S1 normal heart sound present and S2 normal heart sound present GI: COMMON NORMALS: Normal to inspection, nondistended, normoactive bowel sounds present, Soft to palpation and non-tender PALPATION: Yes Soft to palpation Extremity: COMMON NORMALS: no joint enlargement and no pedal edema Neuro: COMMON NORMALS: patient oriented x3 and moves all extremities S ENSORIUM/ORIENTATION: Yes alert Skin: COMMON NORMALS: no rashes or lesions noted GENERAL SKIN EXAM: no rashes or lesions noted Data 07/15/24 13:34 07/15/24 13:34 A&P Assessment and plan (1) Supraventricular tachycardia: Heart rates in 200s on presentation. Palpitations. With hypotension, developing cardiogenic shock, blood pressure down to 86/62. History of SVT, additionally history of atrial fibrillation, anticoagulation with Eliquis. SVT terminated spontaneously possibly with repositioning in bed after initially did not respond to carotid massage, but before adenosine was administered. Reviewed vitals, CBC, INR, CMP, chest x-ray, EKG, ED provider note, discussed with ED provider. Requesting magnesium, TSH level. Initial EKG in my interpretation with SVT, pending official read. Complete troponin EKG series to assess for cardiac ischemia. History of abnormal stress test back in 2020. Monitor on telemetry with risk of severe/life-threatening arrhythmia, history of cardiogenic shock with tachycardia. Cardiology consultation regarding further prevention of recurrent SVT, risk stratification, consideration of cardiac ischemia as a possible cause. Sleep apnea additional potential contributor. He has not been tolerant of CPAP mask in the past, he is awaiting additional titration study arrangements which she states are underway. (2) Troponin level elevated: Baseline troponin 190, in setting of CKD, creatinine 1.8 and after SVT. Does have history of normal stress test. As per discussion with patient and family certainly troponin ovation may be secondary to demand ischemia due to SVT in the setting of CKD, although some possibility of small area of cardiac ischemia triggering arrhythmia. He is chest pain-free currently with resolution of arrhythmia, would favor demand ischemia, but possibility of progression of CAD since 2020. (3) Kidney transplant recipient: Continue tacrolimus, mycophenolate, his is bringing his medications. Follows with a team in [place] where he had his pretransplant. Receiving plasmapheresis Mondays and Fridays in [place]. Plan Anemia: On anticoagulation. Hemoglobin 10.9, normocytic, 95.3. Reassess blood counts. CKD: Currently receiving plasmapheresis Mondays and Fridays in [place]. Atrial fibrillation on anticoagulation with Eliquis, will resume. Continue metoprolol. History of coronary disease previously noted on stress testing back in 2020, HTN, Monitor blood pressures. Resume losartan, metoprolol. HLD, resume statin Pulmonary hypertension, HUE, not on CPAP, could not tolerate the mask. Making arrangements for additional sleep study. Other medical problems Attestations 2 Medical Necessity Statement*: Place in observation for additional assessment management of SVT, elevated troponin and gentleman with kidney transplant, history of SVT, A-fib, additional comorbidities as above. and High MDM includes number and complexity of problems actively addressed during encounter and amount and/or complexity of data reviewed/ordered [ previous or external records, resulted lab(s)/test(s), ordered lab(s)/test(s) and independent test interpretation] as documented Diagnoses Supraventricular tachycardia I47.10 Troponin level elevated R79.89 Kidney transplant recipient Z94.0
[2024-07-15 16:19] LABS: Troponin 5 2HR 146.9 ng/L (0-15); Troponin 5 2HR Delta -43.1 ABS# (0-10)
[2024-07-15 17:05] LABS: Magnesium 1.8 mg/dL (1.7-2.3); Thyroid Stimulating Hormone 2.62 uIU/mL (0.27-4.20)
--- NOTE | 2024-07-15 17:18 | P.CONIM_ITS ---
Providers/Reason For Consult 2 Consulting Physician/Specialty*: David Gonzales MD/ Cardiology Reason for Consult*: Troponin elevation Requesting Physician: Dr Owens Attending Physician: Rober Krueger Primary Care Provider: Jhony Kaur DO History of Present Illness History of Present Illness Mark Mccabe is a 59 year old male with past medical history of renal transplant, SVT, atrial fibrillation who presented to hospital with tachycardia and chest discomfort. He was found to be in SVT with a heart rate over 200 bpm. Initial troponin was 190 that has trended down since. In the emergency room as he was positioned to have cardioversion patches placed, he spontaneously converted to sinus rhythm. Chest pain resolved. EKG post cardioversion shows sinus rhythm with no significant ST-T wave changes. Review of Systems 2 Const: Denies: fever(s) or chills Card: Reports: chest pain, palpitations and irregular heart rhythm Resp: Denies: dyspnea GI: Denies: abdominal pain : Denies: dysuria, urinary frequency or urinary urgency Musc: Denies: neck pain or back pain Skin/Breast: Denies: rash Medications/Allergies Home Medications Medication Instructions Recorded Confirmed Last Taken Type cholecalciferol (vitamin D3) 25 25 mcg PO QAM 01/14/20 07/15/24 01/22/24 History mcg (1,000 unit) capsule fluticasone propionate 50 2 spray intranasal DAILY PRN 01/14/20 07/15/24 01/22/24 History mcg/actuation nasal Allergy Symptoms spray,suspension tamsulosin 0.4 mg capsule 0.4 mg PO QAM 01/14/20 07/15/24 07/15/24 History atorvastatin 10 mg tablet 10 mg PO BEDTIME 02/13/21 07/15/24 07/14/24 History famotidine 20 mg tablet 20 mg PO BID 07/11/21 07/15/24 07/15/24 History hydromorphone 4 mg tablet 4 mg PO Q4H PRN Pain 07/11/21 07/15/24 11/28/22 History diphenoxylate-atropine 2.5 2 tab PO QID PRN Diarrhea 01/16/22 07/15/24 11/28/22 History mg-0.025 mg tablet prednisone 5 mg tablet 5 mg PO QAM 01/16/22 07/15/2424 History acetaminophen 325 mg capsule 650 mg PO Q4H PRN Pain 03/20/22 07/15/24 11/28/22 History loperamide 2 mg capsule 2 mg PO QID PRN Diarrhea 03/20/22 07/15/24 11/28/22 History artificial tears(hypromellose) 0.3 1 drp ophthalmic (eye) DAILY PRN 03/13/23 07/15/24 Unknown History % eye drops Itching losartan 50 mg tablet 25 mg PO DAILY 03/13/23 07/15/24 07/15/24 History ondansetron 4 mg disintegrating 4 mg PO Q8H PRN Nausea And Vomiting 03/13/23 07/15/24 Unknown History tablet patiromer calcium sorbitex 16.8 See Rx Instructions .Route 03/13/23 07/15/24 07/15/24 History gram oral powder packet (Veltassa) .COMPLEX PRN Hyperkalemia pantoprazole 40 mg tablet,delayed 40 mg PO BID 6 weeks #84 tabs 04/12/23 07/15/24 07/15/24 Rx release (Protonix) empagliflozin 25 mg tablet 25 mg PO QAM 06/06/23 07/15/24 07/15/24 History (Jardiance) cyanocobalamin (vitamin B-12) 1,000 mcg PO QAM 08/08/23 07/15/24 07/15/24 History 1,000 mcg capsule ferrous sulfate 325 mg (65 mg 325 mg PO QAM 08/08/23 07/15/24 07/15/24 History iron) tablet filgrastim 480 mcg/1.6 mL 480 mcg SUBCUT DAILY PRN UNKNOWN 08/08/23 07/15/24 Unknown History injection solution finasteride 5 mg tablet 10 mg PO QAM 12/11/23 07/15/24 07/15/24 History ipratropium bromide 42 mcg (0.06 2 spray intranasal QID ALLERGIES 12/11/23 07/15/24 07/15/24 History %) nasal spray mycophenolate sodium 360 mg 360 mg PO BID 12/11/23 07/15/24 07/15/24 History tablet,delayed release apixaban 5 mg tablet (Eliquis) 5 mg PO BID 07/15/24 07/15/24 07/15/24 History calcium polycarbophil 625 mg 625 mg PO QAM 07/15/24 07/15/24 07/15/24 History tablet (FiberCon) cholestyramine-aspartame 4 gram See Rx Instructions .Route .COMPLEX 07/15/24 07/15/24 07/15/24 History oral powder for susp in a packet duloxetine 60 mg capsule,delayed 60 mg PO QAM 07/15/24 07/15/24 07/15/24 History release gabapentin 300 mg capsule 300 mg PO QAM 07/15/24 07/15/24 07/15/24 History megestrol 400 mg/10 mL (40 mg/mL) 400 mg PO QAM 07/15/24 07/15/24 07/15/24 History oral suspension metoclopramide HCl 5 mg tablet 5 mg PO TID 07/15/24 07/15/24 07/15/24 History metoprolol succinate 25 mg 25 mg PO QAM 07/15/24 07/15/24 07/15/24 History tablet,extended release 24 hr mupirocin 2 % topical ointment 1 applic topical BID wound on 07/15/24 07/15/24 07/15/24 History right arm sodium bicarbonate 650 mg tablet 1,300 mg PO BID 07/15/24 07/15/24 07/15/24 History tacrolimus 0.75 mg tablet,extended 1.5 mg PO QAM 07/15/24 07/15/24 07/15/24 History release 24 hr (Envarsus XR) tizanidine 4 mg tablet 2 - 4 mg PO BEDTIME PRN Spasms 07/15/24 07/15/24 Unknown History Allergies Allergy/AdvReac Type Severity Reaction Status Date / Time No Known Allergies Allergy Verified 12/11/23 08:13 PFSH Acute 2 PFSH: Medical History 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 therapy Gout Benign prostatic hyperplasia Peptic ulcer disease Obstructive sleep apnea Fibromyalgia Degenerative joint disease of spine Degenerative arthritis History of peritonitis In association with peritoneal dialysis FSGS (focal segmental glomerulosclerosis), tip variant with nephrosis Pulmonary hypertension associated with ESRD on dialysis Hypertension Hyperlipidemia ESRD (end stage renal disease) 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 Carpal tunnel syndrome, bilateral upper limbs Surgical History Hx of colonoscopy less than 1 year, no polyps History of esophagogastroduodenoscopy (EGD) less than 1 year History of bilateral carpal tunnel release History of right breast biopsy for benign disease History of thoracotomy with chest tube, for pneumonia History of kidney transplant (09/2021) History of cholecystectomy History of umbilical hernia repair History of arthroscopic knee surgery x 3 History of arthroscopy of right shoulder Family History Father CAD (coronary artery disease) Chronic kidney disease (CKD) Mother Arthritis Other Diabetes Hyperlipidemia Hypertension Denies family history of Clotting disorder Dementia Psychiatric illness Suicide Anesthesia complication Bleeding disorder Lung disease Cancer Stroke Social History Smoking and tobacco/nicotine status: former use of tobacco/nicotine (Smoked for 15 years) Alcohol intake: never Substance/Drug Use: never Household members: spouse Marital status: Current occupational status: disabled Vitals/I&O/Wt Last Vital Signs Pulse 75 07/15/24 16:36 Resp 15 07/15/24 15:40 BP 109/68 07/15/24 16:36 Pulse Ox 100 07/15/24 16:36 07/15/24 07/15/24 07/15/24 06:59 14:59 22:59 Intake Total 500 / 500 Balance 500 / 500 Weight last 48 hrs Weight 206 lb 7 oz Weight 200 lb Physical Exam 2 Narrative: GENERAL: Patient is alert, awake and oriented x3. [] NECK: No jugular vein distension. [] HEENT: No cyanosis. No icterus. No pallor. [] HEART: Regular S1 and S2. No murmur, rub or gallop. [] LUNGS: Clear to auscultate bilaterally. [] CENTRAL NERVOUS SYSTEM: Grossly nonfocal. [] EXTREMITIES: Lower extremities with 1+ edema bilaterally. Data 07/16/24 03:55 07/16/24 03:55 A&P Assessment and plan (1) Supraventricular tachycardia: (2) Troponin level elevated: (3) Kidney transplant recipient: Plan Patient has been having more frequent SVT episodes recently. He follows with cardiology in [place]. As outpatient can be considered for SVT ablation. Troponin elevation can be secondary to demand ischemia. However troponin level was quite high. And with tachycardia there was chest discomfort. Now troponins are trending down. We will recommend stress test to rule out ischemia. Monitor renal function. Immunosuppressive therapy per primary team. Thank you for involving us with care of this patient. We will continue to follow. Please call with questions. Consult Attestations 2 Medical Necessity Statement: Care expected to cross 2 midnights. Coding Level of Care Code Acute Code for [facility] Fwd Diagnoses Supraventricular tachycardia I47.10 Troponin level elevated R79.89 Kidney transplant recipient Z94.0
[2024-07-15 17:40] LABS: Glucose Point of Care 134 mg/dL (70-110)
[2024-07-15] MEDS: pantoprazole DR 40 mg Tablet PO (18:22)
[2024-07-15] MEDS: sodium bicarbonate 650 mg Tablet 1300 MG PO (18:22)
[2024-07-15] MEDS: apixaban 5 mg Tablet PO (18:22)
[2024-07-15] MEDS: famotidine 20 mg Tablet PO (19:47)
[2024-07-15] MEDS: TACROLIMUS 0.75 MG 0.75 EACH PO (19:47)
[2024-07-15] MEDS: metoclopramide 10 mg Tablet 5 MG PO (20:17)
[2024-07-15 21:30] LABS: Glucose Point of Care 133 mg/dL (70-110)
[2024-07-16] VITALS (7 sets, daily range): BP systolic 117–131; BP diastolic 75–79; PULSE 64–92; RESP 20–29; TEMP 36.6–37.1; O2SAT 98–100; BMI 28.4
[2024-07-16] MEDS: ondansetron 2 mg/ML SDV 2 mL 4 MG IVP (00:19)
[2024-07-16 05:27] LABS: Basophils % 0.3 %; Eosinophils # 0.1 10^3/uL (0.0-0.8); Eosinophils % 1.5 %; Hematocrit 27.2 % (37-53); Lymphocytes # 1.4 10^3/uL (0.8-4.8); Lymphocytes % 34.6 %; Mean Corpuscular HGB Conc 30.9 g/dL (30-55); Mean Corpuscular Hemoglobin 29.5 pg (27-33); Mean Corpuscular Volume 95.4 fl (82-101); Mean Platelet Volume 9.2 fL (7.4-10.4); Monocytes # 0.8 10^3/uL (0.2-0.9); Monocytes % 19.7 %; Neutrophils # 1.44 10^3/uL (1.8-7.7); Neutrophils % 36.3 %; Nucleated Red Blood Cells % 0 %; Platelet Count 192 10^3/cmm (157-399); Red Blood Count 2.85 10^6/uL (3.85-5.65); Red Cell Distribution Width 16.2 % (12.1-15.1); White Blood Count 3.96 10^3/uL (3.29-11.43)
[2024-07-16] MEDS: finasteride 5 mg Tablet 10 MG PO (05:35)
[2024-07-16] MEDS: tamsulosin 0.4 mg Capsule PO (05:36)
[2024-07-16] MEDS: ferrous sulfate EC 325 mg Tablet PO (05:36)
[2024-07-16] MEDS: calcium polycarbophil 625 mg Tablet PO (05:36)
[2024-07-16] MEDS: megestrol 400 mg/10 mL UDC PO (05:36)
[2024-07-16] MEDS: gabapentin 300 mg Capsule PO (05:36)
[2024-07-16] MEDS: duloxetine 60 mg Capsule PO (05:36)
[2024-07-16] MEDS: metoprolol succinate ER (24 HR) 25 mg Tablet PO (05:36)
[2024-07-16] MEDS: predniSONE 5 mg Tablet PO (05:36)
[2024-07-16 05:50] LABS: Anion Gap 13.7 (5-19); Blood Urea Nitrogen 23 mg/dL (6-20); Calcium 8.2 mg/dL (8.5-10.5); Carbon Dioxide 19 mmol/L (22-29); Chloride 109 mmol/L (98-107); Creatinine Clr Calc Pharmacy 59.8025; Glomerular Filtration Rate 44.6 mL/min (90-130); Glucose 92 mg/dL (65-115); Osmolality Calculated 287 mOsm/kg (285-295); Potassium 4.7 mmol/L (3.5-5.1); Sodium 137 mmol/L (136-145)
[2024-07-16 05:51] LABS: Slide Review Slide Review Perform
[2024-07-16 06:21] LABS: Glucose Point of Care 117 mg/dL (70-110)
--- NOTE | 2024-07-16 06:33 | ECG_ITS ---
[facility] Test Date: 2024-07-16 Pat Name: Mark Mccabe Department: Room: 108 Gender: Male Consumer Analyst: : 1965 Requested By: David Gonzales Order Number: [id number] Mirian DESHPANDE: Interpretive Statements Lung unchanged pre/post procedure; Intraprocedure shortess of breath; Symptoms resoled by discharge [email or web address]
--- NOTE | 2024-07-16 06:33 | NMCV_ITS ---
NM jael perf SPECT r/s* [id number] Mark Mccabe Age: 59 Gender: M : 1965 Exam Date: 07/16/2024 06:53 Ordering Phys: David Gonzales M.D ([email or web address]) Technologist: LILLI Cruz Exam Location: [facility] Indications: cp STRESS TEST Please see separate stress test report in [facility] for full findings IMAGE PROTOCOL Rest/Stress 1 Lexiscan Day Radiopharmaceutical Dose (mCi) Administration Site Administered by Rest: Tc-99m 10.8 IV Dorothea Margy, WHEELCHAIR RENTAL CLERK Stress:Tc-99m 99 IV Dorothea Margy, WHEELCHAIR RENTAL CLERK Rest: 16-Jul-2024 60 Discovery 630 Stress: 16-Jul-2024 30 Discovery 630 0.4mg Lexiscan. Supine position only as patient was unable to lay prone. SPECT RESULTS Technical Quality: Good Raw Data Analysis: Adequate Image Corrections: No attenuation or motion correction applied Summed Stress Score: 4 Summed Rest Score: 5 Summed Difference Score: 0 PERFUSION FINDINGS There is small to medium sized area of fixed perfusion defect seen in the inferolateral wall. This is consistent with small to medium sized area of prior infarct in the left circumflex artery territory. FUNCTIONAL RESULTS (calculated via Gated SPECT) Stress Image LV EF (%): 71 Stress EDV (mL):126 TID: 1.05 Stress ESV (mL):37 FUNCTIONAL FINDINGS: There is normal left ventricular systolic function. IMPRESSIONS 1. Abnormal myocardial perfuison imaging with small to medium sized area of prior infarct in the left circumflex artery territory. 2. LV systolic function is normal David Gonzales MD (Electronically Signed) Final Date: 16 July 2024 10:28 S
[2024-07-16] MEDS: regadenoson 0.4 Mg/5 ml Syringe IVP (07:41)
[2024-07-16] MEDS: TACROLIMUS 0.75 MG 0.75 EACH PO (09:00)
[2024-07-16] MEDS: sodium bicarbonate 650 mg Tablet 1300 MG PO (09:00)
[2024-07-16] MEDS: losartan 50 mg Tablet 25 MG PO (09:01)
[2024-07-16] MEDS: metoclopramide 10 mg Tablet 5 MG PO (09:01)
[2024-07-16] MEDS: famotidine 20 mg Tablet PO (09:01)
[2024-07-16] MEDS: apixaban 5 mg Tablet PO (09:04)
[2024-07-16] MEDS: pantoprazole DR 40 mg Tablet PO (09:04)
--- NOTE | 2024-07-16 09:53 | P.PN_ITS ---
Subjective 2 Subjective: Patient doing well today. He denies any chest pain or shortness of breath. Heart rate regular rate and rhythm. He states that since his heart rate became normal he has not had any chest pain episodes. Medications: Reviewed: Yes Vitals/I&O/Wt Last Vital Signs Temp 97.9 F 07/16/24 09:00 Pulse 76 07/16/24 09:00 Resp 20 H 07/16/24 09:00 BP 120/79 07/16/24 09:01 Pulse Ox 100 07/16/24 09:00 O2 Del Method Room Air 07/16/24 09:00 07/15/24 07/16/24 07/16/24 22:59 06:59 14:59 Intake Total 980 / 980 680 / 680 Output Total 550 / 550 550 / 1100 350 / 350 Balance 430 / 430 -550 / -120 330 / 330 Weight last 48 hrs Weight 209 lb 9 oz Weight 206 lb 7 oz Weight 200 lb Physical Exam 2 Narrative: General: No apparent distress, healthy appearing, well nourished Muskuloskeletal: Full ROM Lymphatic: no lymphedema noted Respiratory: Normal respiratory effort, clear to auscultation bilaterally throughout all lung campos, no use of accessory muscles Cardio: No JVD, regular rate, regular rhythm, S1 S2 normal, no murmurs, peripheral pulses 2+ throughout Extremities: Full ROM, normal, normal capillary refill, no cyanosis or edema Neuro: Alert and oriented x4, no focal motor deficits Psych: Affect normal, denies suicidal ideation, mental status grossly normal Skin: No rashes or lesions noted, no wounds Data 07/16/24 03:55 07/16/24 03:55 A&P Assessment and plan (1) Supraventricular tachycardia: (2) Troponin level elevated: (3) Kidney transplant recipient: Plan Patient has been having more frequent SVT episodes recently. He follows with cardiology in [place]. As outpatient can be considered for SVT ablation. Troponin elevation can be secondary to demand ischemia. However troponin level was quite high. And with tachycardia there was chest discomfort. Now troponins are trending down. Chest pain has resolved. Renal function has improved. Will need to continue to monitor. Patient taking metoprolol at this time for rate control. Apixiban for stroke prevention due to previous afib. We will see what the stress test shows and go from there. Attestations 2 Medical Necessity Statement*: Place in observation for additional assessment management of SVT, elevated troponin and gentleman with kidney transplant, history of SVT, A-fib, additional comorbidities as above. Coding Level of Care Code Acute Code for Chg Fwd Diagnoses Supraventricular tachycardia I47.10 Troponin level elevated R79.89 Kidney transplant recipient Z94.0
[2024-07-16] MEDS: magnesium sulfate premix 2 GM/50 ML PIGGYBACK IV (11:24)
--- NOTE | 2024-07-16 11:25 | P.DS_ITS ---
Discharge Providers Date of Admission: 07/15/24 15:13 Date of Discharge: July 16, 2024 Attending Provider at Admission: Rober Krueger Attending Provider at Discharge: Rober Krueger Primary Care Provider: Jhony Kaur DO Diagnoses at Discharge Discharge Diagnosis (1) Supraventricular tachycardia: Status: Inactive (2) Troponin level elevated: Status: Acute (3) Kidney transplant recipient: Status: Acute Permanent problem details: [facility] [facility] Dr. Villanueva Reason for Visit Reason for Visit: CP Brief History: Pleasant 59-year-old gentleman with history of ESRD, kidney transplantation, CKD, currently receiving plasmapheresis twice a week on Mondays and Fridays in [place], on immunosuppression with tacrolimus, mycophenolate, with history of atrial fibrillation on anticoagulation with Eliquis, history of coronary disease previously noted on stress testing back in 2019, HTN, HLD, pulmonary hypertension, HUE, other medical problems presented to emergency room due to chest pain and rapid heart rate, noted to be as high as 200s on presentation with noted SVT on the monitor. Carotid massage was not successful and breaking the arrhythmia, adenosine was being set up and pads were being prepared per OCT, with repositioning in bed for application of pacer pads he spontaneously conve rted to sinus rhythm. Troponin noted with elevation up to 190. He was in the hospital several weeks ago evaluated in ER also due to an episode of SVT. He normally follows with a plastic dolls mold filler in [place] where he had his kidney transplant. He denies any other acute recent illness or medication changes. Hospital Course Hospital Course He was hospitalized and monitored on telemetry, suspect cardiology. Troponin and EKG were trended. Noted moderate elevation., [id number]. He remained free of chest pain without recurrence of SVT. Cardiology further had him set up for assessment with stress testing which showed small to medium sized area of prior infarct in left circumflex territory. LV systolic function is found normal. Aspirin is added. He is doing well today. Per discussion with cardiology he is okay to discharge today, increase metoprolol up to 50 mg daily, and as per discussion with him his he is to follow-up with his plastic dolls mold filler in for reassessment and consideration of referral for ablation. Physical Exam Narrative: Accompanied by his . Const: COMMON NORMALS: patient oriented x3 and alert GENERAL APPEARANCE: cooperative ORIENTATION/CONSCIOUSNESS: Yes awake HENMT: COMMON NORMALS: oropharynx normal Neck/C-Spine: COMMON NORMALS: no JVD Resp: COMMON NORMALS: normal respiratory effort and clear to auscultation bilaterally AUSCULTATION: clear to auscultation bilaterally Cardio: COMMON NORMALS: no JVD, regular rhythm, S1 normal heart sound present, S2 normal heart sound present and No murmurs present (Cardio) RHYTHM: regular rhythm HEART SOUNDS: S1 normal heart sound present and S2 normal heart sound present GI: COMMON NORMALS: Normal to inspection, nondistended, normoactive bowel sounds present, Soft to palpation and non-tender PALPATION: Yes Soft to palpation Extremity: COMMON NORMALS: no joint enlargement and no pedal edema Neuro: COMMON NORMALS: patient oriented x3 and moves all extremities SENSORIUM/ORIENTATION: Yes alert Skin: COMMON NORMALS: no rashes or lesions noted GENERAL SKIN EXAM: no rashes or lesions noted Discharge Data Studies Completed and Pending Completed Studies During Hospitalization Category Date Time Status Cardiac Stress Test MIBI [Sestamibi Stress Test Request Exams 07/16/24 06:33 Draft ] Routine XR chest 1V portable [id number] Stat Exams 07/15/24 13:08 Completed NM jael perf SPECT r/s* [id number] Routine Nuc Med 07/16/24 06:33 Completed Pending at discharge Category Date Time Status Basic Metabolic Panel AM LABS Lab 07/17/24 04:00 Ordered Basic Metabolic Panel AM LABS Lab 07/18/24 04:00 Ordered Complete Blood Count w/Auto AM LABS Lab 07/17/24 04:00 Ordered Complete Blood Count w/Auto AM LABS Lab 07/18/24 04:00 Ordered Radiology Impressions Chest X-Ray 07/15/24 13:08 IMPRESSION: 1. No acute cardiopulmonary finding. Laboratory Results WBC 3.96 10^3/uL (3.29-11.43) 07/16/24 03:55 RBC 2.85 10^6/uL (3.85-5.65) L 07/16/24 03:55 Hgb 8.40 g/dL (11.27-16.99) L 07/16/24 03:55 Hct 27.2 % (37-53) L 07/16/24 03:55 MCV 95.4 fl (82-101) 07/16/24 03:55 MCH 29.5 pg (27-33) 07/16/24 03:55 MCHC 30.9 g/dL (30-55) 07/16/24 03:55 RDW 16.2 % (12.1-15.1) H 07/16/24 03:55 Plt Count 192 10^3/cmm (157-399) 07/16/24 03:55 MPV 9.2 fL (7.4-10.4) 07/16/24 03:55 Neut % (Auto) 36.3 % 07/16/24 03:55 Lymph % (Auto) 34.6 % 07/16/24 03:55 [place] % (Auto) 19.7 % 07/16/24 03:55 Eos % (Auto) 1.5 % 07/16/24 03:55 Baso % (Auto) 0.3 % 07/16/24 03:55 Neut # (Auto) 1.44 10^3/uL (1.8-7.7) L 07/16/24 03:55 Lymph # (Auto) 1.4 10^3/uL (0.8-4.8) 07/16/24 03:55 [place] # (Auto) 0.8 10^3/uL (0.2-0.9) 07/16/24 03:55 Eos # (Auto) 0.1 10^3/uL (0.0-0.8) 07/16/24 03:55 Baso # (Auto) 0.0 10^3/uL (0.0-0.1) 07/16/24 03:55 Nucleated RBC % (auto) 0 % 07/16/24 03:55 Nucleated RBCs # 0.0 /100WBC 07/16/24 03:55 PT 14.50 SECONDS (12.1-14.9) 07/15/24 13:34 INR 1.09 (0.8-1.2) 07/15/24 13:34 Sodium 137 mmol/L (136-145) 07/16/24 03:55 Potassium 4.7 mmol/L (3.5-5.1) 07/16/24 03:55 Chloride 109 mmol/L (98-107) H 07/16/24 03:55 Carbon Dioxide 19 mmol/L (22-29) L 07/16/24 03:55 Anion Gap 13.7 (5-19) 07/16/24 03:55 BUN 23 mg/dL (6-20) H 07/16/24 03:55 Creatinine 1.6 mg/dL (0.7-1.2) H 07/16/24 03:55 GFR Calculation 44.6 mL/min (90-130) L 07/16/24 03:55 Glucose 92 mg/dL (65-115) 07/16/24 03:55 POC Glucose 117 mg/dL (70-110) H 07/16/24 06:13 Calculated Osmolality 287 mOsm/kg (285-295) 07/16/24 03:55 Calcium 8.2 mg/dL (8.5-10.5) L 07/16/24 03:55 Magnesium 1.8 mg/dL (1.7-2.3) 07/15/24 13:34 Total Bilirubin 0.5 mg/dL (0.15-1.2) 07/15/24 13:34 AST 15 U/L (0-40) 07/15/24 13:34 ALT 6 U/L (0-41) 07/15/24 13:34 Alkaline Phosphatase 47 U/L (40-130) 07/15/24 13:34 Troponin T Baseline 190 ng/L (0-15) H* 07/15/24 13:34 Troponin T 120 Minute 146.9 ng/L (0-15) H 07/15/24 15:42 Delta Troponin T -43.1 ABS# (0-10) L 07/15/24 15:42 Troponin T Hi Sens 6Hr 141.0 ng/L (0-15) H 07/15/24 19:12 Troponin T Hi Sens 6Hr Delta -49.0 ng/L (0-12) L 07/15/24 19:12 Total Protein 5.7 g/dL (6.6-8.7) L 07/15/24 13:34 Albumin 4.6 g/dL (3.5-5.2) 07/15/24 13:34 Globulin 1.1 g/dL (1.3-4.6) L 07/15/24 13:34 Lipase 69 U/L (13-60) H 11/20/24 13:34 TSH 2.62 uIU/mL (0.27-4.20) 07/15/24 13:34 Vitals Last Vital Signs Temp 97.9 F 07/16/24 09:00 Pulse 76 07/16/24 09:00 Resp 20 H 07/16/24 09:00 BP 120/79 07/16/24 09:01 Pulse Ox 100 07/16/24 09:00 O2 Del Method Room Air 07/16/24 09:00 Discharge Plan Discharge Patient Disposition: Home Condition: Stable Prescriptions: New aspirin 81 mg tablet,delayed release (DR/EC) 81 mg PO DAILY Qty: 90 0RF magnesium L-threonate 48 mg magnesium (667 mg) capsule 48 mg PO DAILY Qty: 90 0RF Continued tamsulosin 0.4 mg capsule 0.4 mg PO QAM fluticasone propionate 50 mcg/actuation spray,suspension 2 spray INTRANASAL DAILY PRN (Reason: Allergy Symptoms) cholecalciferol (vitamin D3) 25 mcg (1,000 unit) capsule 25 mcg PO QAM hydromorphone 4 mg tablet 4 mg PO Q4H PRN (Reason: Pain) famotidine 20 mg tablet 20 mg PO BID Jardiance 25 mg tablet 25 mg PO QAM ferrous sulfate 325 mg (65 mg iron) tablet 325 mg PO QAM filgrastim 480 mcg/1.6 mL solution 480 mcg SUBCUT DAILY PRN (Reason: UNKNOWN) cyanocobalamin (vitamin B-12) 1,000 mcg capsule 1,000 mcg PO QAM acetaminophen 325 mg capsule 650 mg PO Q4H PRN (Reason: Pain) loperamide 2 mg capsule 2 mg PO QID PRN (Reason: Diarrhea) atorvastatin 10 mg tablet 10 mg PO BEDTIME pantoprazole [Protonix] 40 mg tablet,delayed release (DR/EC) 40 mg PO BID 42 Days Qty: 84 1RF mycophenolate sodium 360 mg tablet,delayed release (DR/EC) 360 mg PO BID ipratropium bromide 42 mcg (0.06 %) spray,non-aerosol 2 spray INTRANASAL QID finasteride 5 mg tablet 10 mg PO QAM megestrol 400 mg/10 mL (40 mg/mL) suspension 400 mg PO QAM tizanidine 4 mg tablet 2 - 4 mg PO BEDTIME PRN (Reason: Spasms) metoclopramide HCl 5 mg tablet 5 mg PO TID sodium bicarbonate 650 mg tablet 1,300 mg PO BID calcium polycarbophil [FiberCon] 625 mg Tablet 625 mg PO QAM gabapentin 300 mg capsule 300 mg PO QAM mupirocin 2 % ointment 1 applic TOPICAL BID cholestyramine-aspartame 4 gram powder in packet See Rx Instructions .ROUTE .COMPLEX Rx Instructions: TAKE TWO GRAMS (1/2 packet) EVERY DAY IN THE MORNING. Take 4 hours apart from Mycophenolic Acid. duloxetine 60 mg capsule,delayed release(DR/EC) 60 mg PO QAM Eliquis 5 mg tablet 5 mg PO BID Envarsus XR 0.75 mg Tablet Extended Release 24 Hr 1.5 mg PO QAM Rx Instructions: must be taken on empty stomach prednisone 5 mg tablet 5 mg PO QAM diphenoxylate-atropine 2.5-0.025 mg tablet 2 tab PO QID PRN (Reason: Diarrhea) artificial tears(hypromellose) 0.3 % Drops 1 drp OPHTHALMIC (EYE) DAILY PRN (Reason: Itching) losartan 50 mg Tablet 25 mg PO DAILY ondansetron 4 mg Tablet,Disintegrating 4 mg PO Q8H PRN (Reason: Nausea And Vomiting) Veltassa 16.8 gram Powder In Packet See Rx Instructions .ROUTE .COMPLEX PRN (Reason: Hyperkalemia) Rx Instructions: Take 16.8 g by mouth 3 times weekly. Changed metoprolol succinate 25 mg tablet extended release 24 hr 50 mg PO QAM Qty: 30 0RF Discharge Orders: Discharge Order (Routine); Ordered 07/16/24 Ordered By: Rober Krueger Referrals: Your, [employer] filler [Other] - 4-7 days Jhony Kaur DO [Primary Care Provider] - 07/28/24 10:15 am Discharge Diet: Usual diet and Cardiac Patient Instructions: Supraventricular Tachycardia (GEN), High Troponin Levels (ED), Opioid Safety Activity Restrictions/Additional Instructions: Please follow-up with your plastic dolls mold filler in [place] to further discuss recurrent episodes of SVT and consider ablation. Increase metoprolol dose to 50mg daily. Attempt vagal maneuvers as you had been taught in the past in case of recurrence of SVT. Seek medical attention in case of any worsening or new concerning symptoms. Revisit with your plastic dolls [employer] filler and primary provider regarding small to medium prior heart attack. Continue cholesterol medication and aspirin is added. Discharge Attestations Time Spent in Discharge Care*: greater than 30 min Quality Metrics Clinical Quality Measures [ No reported AMI, CVA or VTE this stay] Coding Level of Care Code 92883 Total time (in minutes) for Discharge: 40 Diagnoses Supraventricular tachycardia I47.10 Troponin level elevated R79.89 Kidney transplant recipient Z94.0
--- NOTE | 2024-07-16 12:40 | PC.NURSE ---
Patient discharged to home. Instruction provided regarding follow up appointments and new medications with changes. Patient verbalized complete understanding. IVs removed intact. Telemetry removed. Magnesium administration completed prior to discharge. Home medications returned to patient. Patient taken by wheelchair to private vehicle with spouse. No distress observed.
== END 2024-07-16 12:45 | disposition home or self-care (01) ==
LOC: ER 13:22 → CSU 16:20
PROVIDERS: Emergency Medicine; Admitting Provider Internal Medicine; Emergency Provider Family Medicine; PCP Internal Medicine; Visit Provider Internal Medicine
DX: I47.10 Supraventricular tachycardia, unspecified (principal); R79.89 Other specified abnormal findings of blood chemistry; Z94.0 Kidney transplant status; I12.9 Hypertensive chronic kidney disease with stage 1 through stage 4 chronic kidney disease, or unspecified chronic kidney disease; N18.9 Chronic kidney disease, unspecified; D84.9 Immunodeficiency, unspecified; G47.33 Obstructive sleep apnea (adult) (pediatric); I48.91 Unspecified atrial fibrillation; Z79.01 Long term (current) use of anticoagulants; Z87.11 Personal history of peptic ulcer disease; M79.7 Fibromyalgia; E78.5 Hyperlipidemia, unspecified; Z87.891 Personal history of nicotine dependence
CPT/HCPCS: 12345; 36415; 36416; 71045; 78452; 80048; 80053; 82962; 83690; 83735; 84443; 84484; 85025; 85610; 93005; 93017; 96365; 96375; 99285; A9500; G0378; J2405; J2785; J3475; J7040; J7512; J8597

== ENCOUNTER 2024-07-22 19:01 | Emergency (ER) | payer OTHER, MEDICARE, SELFPAY ==
[2024-07-22] VITALS (18 sets, daily range): BP systolic 75–111; BP diastolic 48–75; PULSE 92–202; RESP 16–27; TEMP 36.8; O2SAT 96–100; BMI 28.2
--- NOTE | 2024-07-22 19:06 | ECG_ITS ---
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 Measurements Intervals [place] Rate: P: 0 LA: 0 QRS: -45 QRSD: 118 T: 102 QT: 230 QTc: 422 Interpretive Statements SUPRAVENTRICULAR TACHYCARDIA PATTERN CONSISTENT WITH PULMONARY DISEASE LEFT ANTERIOR FASCICULAR BLOCK [QRS AXIS <= -45, QR IN I, RS IN II] LEFT VENTRICULAR HYPERTROPHY AND ST-T CHANGE [VOLTAGE CRITERIA PLUS ST/T ABNORMALITY] CRITICAL TEST RESULT Compared to ECG 07/15/2024 15:51:40 ST (T wave) deviation now present Sinus rhythm no longer present T-wave abnormality no longer present Electronically Signed On 07-23-2024 13:52:04 PROFILE MILL OPERATOR TAPE CONTROL by Darron Castanon M.D. [email or web address]
[2024-07-22] MEDS: adenosine 3 mg/mL SDV 2mL 6 MG IVP (19:18)
--- NOTE | 2024-07-22 19:18 | XRR_ITS ---
PROCEDURE INFORMATION: Exam: XR Chest Exam date and time: 07/22/2024 7:37 PM Age: 59 years old Clinical indication: Other: Tachycardia TECHNIQUE: Imaging protocol: Radiologic exam of the chest. Views: 1 view. COMPARISON: CR XR chest 1V portable [id number] 07/15/2024 1:47 PM FINDINGS: Lungs: Minimal bibasilar atelectasis . No focal consolidation Pleural spaces: Unremarkable. No pleural effusion. No pneumothorax. Heart/Mediastinum: Heart is enlarged. Bones/joints: Unremarkable. XR/XR chest 1V portable [id number] IMPRESSION: Cardiomegaly with minimal bibasilar atelectasis
[2024-07-22] MEDS: adenosine 3 mg/mL SDV 2mL 12 MG IVP (19:19)
[2024-07-22] MEDS: amiodarone 50 mg/mL SDV 3 mL 150 MG IVP (19:21)
[2024-07-22 19:24] LABS: Basophils # 0.1 10^3/uL (0.0-0.1); Basophils % 0.6 %; Eosinophils # 0.1 10^3/uL (0.0-0.8); Eosinophils % 1.3 %; Hematocrit 36.3 % (37-53); Lymphocytes # 3.9 10^3/uL (0.8-4.8); Lymphocytes % 45.6 %; Mean Corpuscular HGB Conc 32.2 g/dL (30-55); Mean Corpuscular Hemoglobin 30.4 pg (27-33); Mean Corpuscular Volume 94.3 fl (82-101); Mean Platelet Volume 9.2 fL (7.4-10.4); Monocytes # 1.5 10^3/uL (0.2-0.9); Monocytes % 17.9 %; Neutrophils # 2.39 10^3/uL (1.8-7.7); Neutrophils % 27.7 %; Nucleated Red Blood Cells % 0.2 %; Platelet Count 292 10^3/cmm (157-399); Red Blood Count 3.85 10^6/uL (3.85-5.65); Red Cell Distribution Width 16.2 % (12.1-15.1); White Blood Count 8.61 10^3/uL (3.29-11.43)
[2024-07-22] MEDS: sodium chloride 0.9% 1,000 ML 999 ML (19:24)
--- NOTE | 2024-07-22 19:26 | ED_ITS ---
HPI - Chest Pain 2 General: Chief Complaint: Chest Pain Stated Complaint: Rpid Heart Rate\Chest Pain Time Seen by Provider: 07/22/24 19:05 History of Present Illness: Patient presents to the ER with complaints of fast heart rate. Patient also complains of chest pain. It started earlier today. Says heart rate got up to 200 beats a minute. Patient does have a history of SVT. Patient has appointment with a electro truant officer in [place] next week. Patient has had this happen couple times in the past. Patient usually does not respond to adenosine and after putting on amiodarone drip per . Patient does have end-stage renal disease and is on dialysis and has a shunt in his left arm. Related Data Home Medications Medication Instructions Recorded Confirmed cholecalciferol (vitamin D3) 25 25 mcg PO QAM 01/14/20 07/15/24 mcg (1,000 unit) capsule fluticasone propionate 50 2 spray intranasal DAILY PRN 01/14/20 07/15/24 mcg/actuation nasal Allergy Symptoms spray,suspension tamsulosin 0.4 mg capsule 0.4 mg PO QAM 01/14/20 07/15/24 atorvastatin 10 mg tablet 10 mg PO BEDTIME 02/13/21 07/15/24 famotidine 20 mg tablet 20 mg PO BID 07/11/21 07/15/24 hydromorphone 4 mg tablet 4 mg PO Q4H PRN Pain 07/11/21 07/15/24 diphenoxylate-atropine 2.5 2 tab PO QID PRN Diarrhea 01/16/22 07/15/24 mg-0.025 mg tablet prednisone 5 mg tablet 5 mg PO QAM 01/16/22 07/15/24 acetaminophen 325 mg capsule 650 mg PO Q4H PRN Pain 03/20/22 07/15/24 loperamide 2 mg capsule 2 mg PO QID PRN Diarrhea 03/20/22 07/15/24 artificial tears(hypromellose) 0.3 1 drp ophthalmic (eye) DAILY PRN 03/13/23 07/15/24 % eye drops Itching losartan 50 mg tablet 25 mg PO DAILY 03/13/23 07/15/24 ondansetron 4 mg disintegrating 4 mg PO Q8H PRN Nausea And Vomiting 03/13/23 07/15/24 tablet patiromer calcium sorbitex 16.8 See Rx Instructions .Route 03/13/23 07/15/24 gram oral powder packet (Veltassa) .COMPLEX PRN Hyperkalemia empagliflozin 25 mg tablet 25 mg PO QAM 06/06/23 07/15/24 (Jardiance) cyanocobalamin (vitamin B-12) 1,000 mcg PO QAM 08/08/23 07/15/24 1,000 mcg capsule ferrous sulfate 325 mg (65 mg 325 mg PO QAM 08/08/23 07/15/24 iron) tablet filgrastim 480 mcg/1.6 mL 480 mcg SUBCUT DAILY PRN UNKNOWN 08/08/23 07/15/24 injection solution finasteride 5 mg tablet 10 mg PO QAM 12/11/23 07/15/24 ipratropium bromide 42 mcg (0.06 2 spray intranasal QID ALLERGIES 12/11/23 07/15/24 %) nasal spray mycophenolate sodium 360 mg 360 mg PO BID 12/11/23 07/15/24 tablet,delayed release apixaban 5 mg tablet (Eliquis) 5 mg PO BID 07/15/24 07/15/24 calcium polycarbophil 625 mg 625 mg PO QAM 07/15/24 07/15/24 tablet (FiberCon) cholestyramine-aspartame 4 gram See Rx Instructions .Route .COMPLEX 07/15/24 07/15/24 oral powder for susp in a packet duloxetine 60 mg capsule,delayed 60 mg PO QAM 07/15/24 07/15/24 release gabapentin 300 mg capsule 300 mg PO QAM 07/15/24 07/15/24 megestrol 400 mg/10 mL (40 mg/mL) 400 mg PO QAM 07/15/24 07/15/24 oral suspension metoclopramide HCl 5 mg tablet 5 mg PO TID 07/15/24 07/15/24 mupirocin 2 % topical ointment 1 applic topical BID wound on 07/15/24 07/15/24 right arm sodium bicarbonate 650 mg tablet 1,300 mg PO BID 07/15/24 07/15/24 tacrolimus 0.75 mg tablet,extended 1.5 mg PO QAM 07/15/24 07/15/24 release 24 hr (Envarsus XR) tizanidine 4 mg tablet 2 - 4 mg PO BEDTIME PRN Spasms 07/15/24 07/15/24 Previous Rx's Medication Instructions Recorded pantoprazole 40 mg tablet,delayed 40 mg PO BID 6 weeks #84 tabs 04/12/23 release (Protonix) aspirin 81 mg tablet,delayed 81 mg PO DAILY #90 tabs 07/16/24 release magnesium L-threonate 48 mg 48 mg PO DAILY #90 caps 07/16/24 magnesium (667 mg) capsule metoprolol succinate 25 mg 50 mg (2 x 25 mg) PO QAM #30 tabs 07/16/24 tablet,extended release 24 hr Allergies Allergy/AdvReac Type Severity Reaction Status Date / Time No Known Allergies Allergy Verified 07/22/24 19:20 Review of Systems 2 General: Reports: 10 or more systems reviewed and unremarkable except in HPI and below 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 Carpal tunnel syndrome, bilateral upper limbs Surgical History Hx of colonoscopy less than 1 year, no polyps History of esophagogastroduodenoscopy (EGD) less than 1 year History of bilateral carpal tunnel release History of right breast biopsy for benign disease History of thoracotomy with chest tube, for pneumonia History of kidney transplant (09/2021) History of cholecystectomy History of umbilical hernia repair History of arthroscopic knee surgery x 3 History of arthroscopy of right shoulder Family History Father CAD (coronary artery disease) Chronic kidney disease (CKD) Mother Arthritis Other Diabetes Hyperlipidemia Hypertension Denies family history of Clotting disorder Dementia Psychiatric illness Suicide Anesthesia complication Bleeding disorder Lung disease Cancer Stroke Social History Smoking and tobacco/nicotine status: former use of tobacco/nicotine (Smoked for 15 years) Alcohol intake: never Substance/Drug Use: never Household members: spouse Marital status: Current occupational status: disabled Physical Exam 2 Const: COMMON NORMALS: no acute distress, average body habitus, patient oriented x3, no limitations, healthy appearing, alert and well nourished HENMT: COMMON NORMALS: normocephalic, atraumatic, hearing grossly normal bilaterally, external ears normal, Normal external nose present and moist oral mucous membranes HEAD & SCALP: normocephalic and atraumatic NOSE: Normal external nose present EXTERNAL EAR: Yes external ears normal Neck/C-Spine: COMMON NORMALS: full ROM, no lymphadenopathy, supple, no meningeal signs and no JVD Chest: COMMONS NORMALS: normal inspection of the chest and normal palpation of entire chest wall Resp: COMMON NORMALS: normal respiratory effort, No retractions, No use of accessory muscles and clear to auscultation bilaterally AUSCULTATION: clear to auscultation bilaterally Cardio: COMMON NORMALS: no JVD, regular rhythm, S1 normal heart sound present, S2 normal heart sound present, No gallops present (Cardio), No clicks present (Cardio), No murmurs present (Cardio) and No rub (Cardio); negative for regular rate (Tachycardic at 202 bpm) RATE: abnormal rate (Tachycardic at 202 bpm) RHYTHM: regular rhythm HEART SOUNDS: S1 normal heart sound present and S2 normal heart sound present GI: COMMON NORMALS: Normal to inspection, nondistended, normoactive bowel sounds present, Soft to palpation, non-tender, No hepatosplenomegaly present and no masses PALPATION: Yes Soft to palpation and Yes No hepatosplenomegaly present Neuro: COMMON NORMALS: patient oriented x3 SENSORIUM/ORIENTATION: Yes alert MENINGEAL SIGNS: Yes no meningeal signs Course 2 Vital Signs: Vital signs: Vital Signs Temperature 98.3 F 07/22/24 19:05 Pulse Rate 104 H 07/22/24 20:18 Respiratory Rate 24 H 07/22/24 20:18 Blood Pressure 81/48 07/22/24 20:18 Pulse Oximetry 99 07/22/24 20:18 Oxygen Delivery Me thod Room Air 07/22/24 19:33 MDM - Chest Pain Medical Decision Making Patient was given adenosine 6 mg and then 12 mg with no response. Amiodarone slow push of 150 mg was given and then started on a drip per protocol. Patient quickly converted to sinus rhythm about 100 to 110 bpm. Patient was feeling much better. Patient did receive a liter bolus of normal saline, while waiting for lab work to come back. First troponin was elevated to the 170. Otherwise lab work was unremarkable. Will wait till the second troponin comes back and anticipate probable discharge. I discussed this with the patient and his and they are comfortable with this. Medical Records I reviewed the patient's medical records. Lab Data I reviewed the patient's lab results. 07/22/24 19:12 07/22/24 19:12 Laboratory Results WBC 8.61 10^3/uL (3.29-11.43) 07/22/24 19:12 RBC 3.85 10^6/uL (3.85-5.65) 07/22/24 19:12 Hgb 11.70 g/dL (11.27-16.99) 07/22/24 19:12 Hct 36.3 % (37-53) L 07/22/24 19:12 MCV 94.3 fl (82-101) 07/22/24 19:12 MCH 30.4 pg (27-33) 07/22/24 19:12 MCHC 32.2 g/dL (30-55) 07/22/24 19:12 RDW 16.2 % (12.1-15.1) H 07/22/24 19:12 Plt Count 292 10^3/cmm (157-399) 07/22/24 19:12 MPV 9.2 fL (7.4-10.4) 07/22/24 19:12 Neut % (Auto) 27.7 % 07/22/24 19:12 Lymph % (Auto) 45.6 % 07/22/24 19:12 [place] % (Auto) 17.9 % 07/22/24 19:12 Eos % (Auto) 1.3 % 07/22/24 19:12 Baso % (Auto) 0.6 % 07/22/24 19:12 Neut # (Auto) 2.39 10^3/uL (1.8-7.7) 07/22/24 19:12 Lymph # (Auto) 3.9 10^3/uL (0.8-4.8) 07/22/24 19:12 [place] # (Auto) 1.5 10^3/uL (0.2-0.9) H 07/22/24 19:12 Eos # (Auto) 0.1 10^3/uL (0.0-0.8) 07/22/24 19:12 Baso # (Auto) 0.1 10^3/uL (0.0-0.1) 07/22/24 19:12 Nucleated RBC % (auto) 0.2 % 07/22/24 19:12 Nucleated RBCs # 0.0 /100WBC 07/22/24 19:12 Sodium 135 mmol/L (136-145) L 07/22/24 19:12 Potassium 5.1 mmol/L (3.5-5.1) 07/22/24 19:12 Chloride 104 mmol/L (98-107) 07/22/24 19:12 Carbon Dioxide 16 mmol/L (22-29) L 07/22/24 19:12 Anion Gap 20.1 (5-19) H 07/22/24 19:12 BUN 26 mg/dL (6-20) H 07/22/24 19:12 Creatinine 1.9 mg/dL (0.7-1.2) H 07/22/24 19:12 GFR Calculation 36.6 mL/min (90-130) L 07/22/24 19:12 Glucose 117 mg/dL (65-115) H 07/22/24 19:12 Calculated Osmolality 286 mOsm/kg (285-295) 07/22/24 19:12 Calcium 9.6 mg/dL (8.5-10.5) 07/22/24 19:12 Phosphorus 4.4 mg/dL (2.5-4.5) 07/22/24 19:12 Magnesium 1.8 mg/dL (1.7-2.3) 07/22/24 19:12 Total Bilirubin 0.4 mg/dL (0.15-1.2) 07/22/24 19:12 AST 16 U/L (0-40) 07/22/24 19:12 ALT 7 U/L (0-41) 07/22/24 19:12 Alkaline Phosphatase 61 U/L (40-130) 07/22/24 19:12 Troponin T Baseline 170 ng/L (0-15) H* 07/22/24 19:12 Total Protein 5.5 g/dL (6.6-8.7) L 07/22/24 19:12 Albumin 4.7 g/dL (3.5-5.2) 07/22/24 19:12 Globulin 0.8 g/dL (1.3-4.6) L 07/22/24 19:12 All radiology interpretation(s) finalized by discharge Discharge Plan Discharge Patient Disposition: Home Clinical Impression: SVT (supraventricular tachycardia) Condition: Stable Prescriptions: No Action tamsulosin 0.4 mg capsule 0.4 mg PO QAM fluticasone propionate 50 mcg/actuation spray,suspension 2 spray INTRANASAL DAILY PRN (Reason: Allergy Symptoms) cholecalciferol (vitamin D3) 25 mcg (1,000 unit) capsule 25 mcg PO QAM hydromorphone 4 mg tablet 4 mg PO Q4H PRN (Reason: Pain) famotidine 20 mg tablet 20 mg PO BID Jardiance 25 mg tablet 25 mg PO QAM ferrous sulfate 325 mg (65 mg iron) tablet 325 mg PO QAM filgrastim 480 mcg/1.6 mL solution 480 mcg SUBCUT DAILY PRN (Reason: UNKNOWN) cyanocobalamin (vitamin B-12) 1,000 mcg capsule 1,000 mcg PO QAM acetaminophen 325 mg capsule 650 mg PO Q4H PRN (Reason: Pain) loperamide 2 mg capsule 2 mg PO QID PRN (Reason: Diarrhea) atorvastatin 10 mg tablet 10 mg PO BEDTIME pantoprazole [Protonix] 40 mg tablet,delayed release (DR/EC) 40 mg PO BID 42 Days Qty: 84 1RF mycophenolate sodium 360 mg tablet,delayed release (DR/EC) 360 mg PO BID ipratropium bromide 42 mcg (0.06 %) spray,non-aerosol 2 spray INTRANASAL QID finasteride 5 mg tablet 10 mg PO QAM megestrol 400 mg/10 mL (40 mg/mL) suspension 400 mg PO QAM tizanidine 4 mg tablet 2 - 4 mg PO BEDTIME PRN (Reason: Spasms) metoclopramide HCl 5 mg tablet 5 mg PO TID sodium bicarbonate 650 mg tablet 1,300 mg PO BID calcium polycarbophil [FiberCon] 625 mg Tablet 625 mg PO QAM gabapentin 300 mg capsule 300 mg PO QAM mupirocin 2 % ointment 1 applic TOPICAL BID cholestyramine-aspartame 4 gram powder in packet See Rx Instructions .ROUTE .COMPLEX Rx Instructions: TAKE TWO GRAMS (1/2 packet) EVERY DAY IN THE MORNING. Take 4 hours apart from Mycophenolic Acid. duloxetine 60 mg capsule,delayed release(DR/EC) 60 mg PO QAM Eliquis 5 mg tablet 5 mg PO BID Envarsus XR 0.75 mg Tablet Extended Release 24 Hr 1.5 mg PO QAM Rx Instructions: must be taken on empty stomach metoprolol succinate 25 mg tablet extended release 24 hr 50 mg PO QAM Qty: 30 0RF aspirin 81 mg tablet,delayed release (DR/EC) 81 mg PO DAILY Qty: 90 0RF magnesium L-threonate 48 mg magnesium (667 mg) capsule 48 mg PO DAILY Qty: 90 0RF prednisone 5 mg tablet 5 mg PO QAM diphenoxylate-atropine 2.5-0.025 mg tablet 2 tab PO QID PRN (Reason: Diarrhea) artificial tears(hypromellose) 0.3 % Drops 1 drp OPHTHALMIC (EYE) DAILY PRN (Reason: Itching) losartan 50 mg Tablet 25 mg PO DAILY ondansetron 4 mg Tablet,Disintegrating 4 mg PO Q8H PRN (Reason: Nausea And Vomiting) Veltassa 16.8 gram Powder In Packet See Rx Instructions .ROUTE .COMPLEX PRN (Reason: Hyperkalemia) Rx Instructions: Take 16.8 g by mouth 3 times weekly. Discharge Orders: Discharge ED (Routine); Ordered 07/22/24 Ordered By: Arun Veras Referrals: Jhony Kaur DO [Primary Care Provider] - 1 week Patient Instructions: Supraventricular Tachycardia (ED) Activity Restrictions/Additional Instructions: Please keep your appointment with the electro truant officer already scheduled in [place]. If symptoms return please feel free to return to the ER. Thank you for choosing [facility] for your healthcare needs today. Please realize that you were seen in the emergency department and that we are providing you with an emergency medical screening exam and this may not be a complete and all exclusive of all testing and/or medical workup we may need to determine your element or severity of your illness. It is very important that you follow-up as instructed with your primary care provider or specialist for the additional evaluation and to discuss your medical treatment plan. You may return to the emergency department should you have concerns or if your condition changes or worsens in any way. Coding Level of Care Code ED Cuff Folder for Audrey Almanza
--- NOTE | 2024-07-22 19:34 | ECG_ITS ---
[employer] Test Date: 2024-07-22 Pat Name: Mark Mccabe Department: Room: Gender: Male Press Offbearer: : 1965 Requested By: Arun Veras Order Number: [id number] Vela MD: Darron Castanon M.D. Measurements Intervals [place] Rate: 97 P: 55 MA: 186 QRS: -47 QRSD: 97 T: 95 QT: 335 QTc: 426 Interpretive Statements SINUS RHYTHM PATTERN CONSISTENT WITH PULMONARY DISEASE LEFT ANTERIOR FASCICULAR BLOCK [QRS AXIS <= -45, QR IN I, RS IN II] VOLTAGE CRITERIA FOR LVH [MEETS CRITERIA IN ONE OF: R(aVL), S(V1), R(V5), R(V5/V6)+S(V1)] MODERATE T-WAVE ABNORMALITY, CONSIDER LATERAL ISCHEMIA [-0.1+ mV T-WAVE IN I/aVL/V5/V6] Compared to ECG 07/15/2024 15:51:40 Possible ischemia now present T-wave abnormality still present Electronically Signed On 07-23-2024 13:49:54 BILL CHECKER by Darron Castanon M.D. [id number]
[2024-07-22 19:41] LABS: Troponin(5th) Baseline 170 ng/L (0-15)
[2024-07-22 19:42] LABS: Alanine Aminotransferase 7 U/L (0-41); Albumin Level 4.7 g/dL (3.5-5.2); Alkaline Phosphatase 61 U/L (40-130); Anion Gap 20.1 (5-19); Aspartate Amino Transferase 16 U/L (0-40); Blood Urea Nitrogen 26 mg/dL (6-20); Calcium 9.6 mg/dL (8.5-10.5); Carbon Dioxide 16 mmol/L (22-29); Chloride 104 mmol/L (98-107); Globulin 0.8 g/dL (1.3-4.6); Glomerular Filtration Rate 36.6 mL/min (90-130); Glucose 117 mg/dL (65-115); Magnesium 1.8 mg/dL (1.7-2.3); Osmolality Calculated 286 mOsm/kg (285-295); Potassium 5.1 mmol/L (3.5-5.1); Slide Review Slide Review Perform; Sodium 135 mmol/L (136-145); Total Bilirubin 0.4 mg/dL (0.15-1.2); Total Protein 5.5 g/dL (6.6-8.7)
[2024-07-22 20:11] LABS: Phosphorus 4.4 mg/dL (2.5-4.5)
[2024-07-22 21:29] LABS: Troponin 5 2HR 136.1 ng/L (0-15); Troponin 5 2HR Delta -33.9 ABS# (0-10)
== END 2024-07-22 21:57 | disposition home or self-care (01) ==
PROVIDERS: Emergency Provider Emergency Medicine; PCP Internal Medicine
DX: I47.10 Supraventricular tachycardia, unspecified (principal); Z79.01 Long term (current) use of anticoagulants; Z79.82 Long term (current) use of aspirin; Z87.891 Personal history of nicotine dependence; I12.0 Hypertensive chronic kidney disease with stage 5 chronic kidney disease or end stage renal disease; N18.6 End stage renal disease; E78.5 Hyperlipidemia, unspecified
CPT/HCPCS: 71045; 80053; 83735; 84100; 84484; 85025; 93005; 96374; 96375; 99285; J0153; J0282; J0283; J7030

== ENCOUNTER 2024-07-31 14:18 | Outpatient (CLI) | payer OTHER, MEDICARE, SELFPAY ==
--- NOTE | 2024-07-31 14:31 | PETR_ITS ---
PROCEDURE INFORMATION: Exam: PET/CT Whole Body Exam date and time: 07/31/2024 3:28 PM Age: 59 years old Clinical indication: Abnormal findings; Lung nodule LABS AND CLINICAL REPORTS: Glucose: 110 mg/dl Treatment strategy for malignancy (PET staging): Initial Staging (PI) TECHNIQUE: Imaging protocol: Following at least four-hour fasting and following the injection of radiopharmaceutical, low dose CT images were obtained. Then, PET images were obtained. Attenuation corrected images were constructed using the CT scan. Fused images of PET and CT were reviewed. The standardized uptake values (SUV) reported below are maximum values within a region of interest, expressed in gm/ml. Exam includes the whole body. SUV normalization method: BodyWeight Radiopharmaceutical: 10.59 mCi F-18 FDG (Fluorodeoxyglucose), IV. Time of imaging post radiopharmaceutical administration: 54 minutes Injection site: right hand COMPARISON: 1. [place] [id number] 05/23/2024 11:[address] chest wo con [id number] 07/03/2024 8:31 AM FINDINGS: Brain: Visualized brain has normal physiologic uptake. Pharynx: No abnormal uptake. Larynx: No abnormal uptake. Lungs, pleura and trachea: No abnormal uptake. Previous right upper lobe solid nodule of concern is decreased in size and attenuation now showing ground-glass opacity measuring approximately 17 x 8 mm on axial image 557 (previously 18 x 13 mm) and without FDG avidity. Few additional sub 6 mm pulmonary nodules show no FDG avidity, most stable from comparison exams. A 4 mm left upper lung perifissural nodule on axial image 548 previously measured 2 mm. Heart: Normal physiologic uptake. Mediastinal space: No abnormal uptake. Liver: No abnormal uptake. Gallbladder and biliary ducts: No abnormal uptake. Prior cholecystectomy. Pancreas: No abnormal uptake. Spleen: No abnormal uptake. Adrenal glands: No abnormal uptake. Kidneys and ureters: Transplant right pelvic kidney with normal uptake. Marked atrophy of the quileute kidneys with minimal low-level FDG uptake. Fluid density left renal cyst. Stomach and bowel: No abnormal uptake. Vasculature: No abnormal uptake. Mild systemic atherosclerotic calcification with stable ascending aortic ectasia measuring 4.4 cm. Suspect left upper extremity AV fistula. Lymph nodes: No abnormal uptake. No lymphadenopathy in the head, neck, chest, abdomen, pelvis, and extremities. Skeleton: Degenerative change along the axial skeletal system, both shoulders, hips, and knees. Loss of the right acromial humeral space compatible with rotator cuff tear. Bilateral humeral head serpentine sclerosis suggestive of osteonecrosis with mild [id number]-[id number]-klxy-left flattening. Bilateral femoral head serpentine sclerosis with preserved femoral head contour compatible with osteonecrosis. Mild patchy sclerosis with serpentine morphology at both distal femora and proximal tibiae. Soft tissues: No abnormal uptake in the visualized head, neck, chest, abdomen, pelvis, and extremities. Prominent asymmetric left gynecomastia redemonstrated. METRICS: Mediastinal blood pool: SUV mean 2.7 Liver uptake: SUV mean 3.2 PET/PET WB melanoma INITIAL [id number] IMPRESSION: 1. Decreased size and attenuation of right upper lobe nodule without FDG avidity favors benignity. 2. Few additional sub 6 mm pulmonary nodules without FDG avidity are mostly stable with single 4 mm left upper lung perifissural nodule increased in size from 2 mm on comparison exams. These nodules are below size threshold for accurate assessment of FDG uptake. Continued follow-up chest CT recommended. 3. Multifocal bony findings suggestive of osteonecrosis involving the humeral heads, femoral heads, distal femora and proximal tibiae. 4. Additional chronic and incidental findings as above, to include atherosclerosis with ascending aortic ectasia, chronic kidney disease with transplant right pelvic kidney, and prominent asymmetric left gynecomastia.
== END 2024-07-31 14:19 | disposition home or self-care (01) ==
LOC: RAD 14:18
PROVIDERS: PCP Internal Medicine; Visit Provider Physician Assistant
DX: R91.1 Solitary pulmonary nodule (principal); R91.8 Other nonspecific abnormal finding of lung field; Z90.49 Acquired absence of other specified parts of digestive tract; Z94.0 Kidney transplant status; N28.1 Cyst of kidney, acquired; R93.7 Abnormal findings on diagnostic imaging of other parts of musculoskeletal system; I77.819 Aortic ectasia, unspecified site; N18.9 Chronic kidney disease, unspecified; N62 Hypertrophy of breast
CPT/HCPCS: 78816; A9552

== ENCOUNTER 2024-08-05 07:55 | Emergency (ER) | payer OTHER, MEDICARE, SELFPAY ==
[2024-08-05] VITALS (10 sets, daily range): BP systolic 91–110; BP diastolic 62–75; PULSE 75–121; RESP 19–23; TEMP 36.7; O2SAT 97–100; BMI 27.8
--- NOTE | 2024-08-05 07:58 | ECG_ITS ---
[employer] Test Date: 2024-08-05 Pat Name: Mark Mccabe Department: Room: Gender: Male Stripper And Taper: : 1965 Requested By: Franky Lawrence Order Number: [id number] Mirian MD: David Gonzales M.D. Measurements Intervals [place] Rate: 107 P: 69 GA: 189 QRS: -59 QRSD: 97 T: 103 QT: 305 QTc: 407 Interpretive Statements SINUS TACHYCARDIA PATTERN CONSISTENT WITH PULMONARY DISEASE LEFT ANTERIOR FASCICULAR BLOCK [QRS AXIS <= -45, QR IN I, RS IN II] LEFT VENTRICULAR HYPERTROPHY AND ST-T CHANGE [VOLTAGE CRITERIA PLUS ST/T ABNORMALITY] POSSIBLE SEPTAL MYOCARDIAL INFARCTION , PROBABLY OLD [30 ms Q WAVE IN V1/V2] Compared to ECG 07/22/2024 19:34:29 ST (T wave) deviation now present Myocardial infarct finding now present Sinus rhythm no longer present T-wave abnormality no longer present Possible ischemia no longer present Electronically Signed On 08-07-2024 22:04:13 CITY ENGINEER by David Gonzaels M.D. [email or web address]
--- NOTE | 2024-08-05 07:58 | XR_ITS ---
WS: [id number] Exam: XR chest 1V portable [id number] Date/Time of Exam: 08/05/2024 7:59 AM Reason For Exam: chest pain Comparison 07/22/2024. Lungs are fully expanded. No acute infiltrates are noted. Areas of plaque atelectasis in the lower brett ng zones. Mild cardiac enlargement unchanged. The mediastinum is normal in contour. Bony structures a re intact. Moderately advanced degenerative changes of both shoulders. XR/XR chest 1V portable [id number] IMPRESSION: 1. Mild cardiac enlargement unchanged. No acute finding.
--- NOTE | 2024-08-05 08:08 | ED_ITS ---
HPI - Chest Pain 2 General: Chief Complaint: Chest Pain Stated Complaint: rapid heart rate, SOB, chest pain Time Seen by Provider: 08/05/24 07:57 History of Present Illness: 59-year-old male presents emergency room complaining of rapid heart rate. Patient has a history of SVT he was here recently for the same complaint he failed to respond to adenosine but did respond to amiodarone which they reported has been typical in the past he also has a history of end-stage renal disease he recently underwent renal transplant he gets plasmapheresis twice a week. He said some shortness of breath and chest discomfort with the episode this morning. He reports at home he was monitoring his heart rate had rates in the 170s to 80s is resolved now and on arrival here his heart rate is slightly above 100 it is a sinus tachycardia. Associated symptoms: Deny abdominal pain, dyspnea or fever(s) Related Data Home Medications Medication Instructions Recorded Confirmed cholecalciferol (vitamin D3) 25 25 mcg PO QAM 01/14/20 08/06/24 mcg (1,000 unit) capsule fluticasone propionate 50 2 spray intranasal DAILY PRN 01/14/20 08/06/24 mcg/actuation nasal Allergy Symptoms spray,suspension tamsulosin 0.4 mg capsule 0.4 mg PO QAM 01/14/20 08/06/24 atorvastatin 10 mg tablet 10 mg PO BEDTIME 02/13/21 08/06/24 famotidine 20 mg tablet 20 mg PO BID 07/11/21 08/06/24 hydromorphone 4 mg tablet 4 mg PO Q4H PRN Pain 07/11/21 08/06/24 diphenoxylate-atropine 2.5 2 tab PO QID PRN Diarrhea 01/16/22 08/06/24 mg-0.025 mg tablet prednisone 5 mg tablet 5 mg PO QAM 01/16/22 08/06/24 acetaminophen 325 mg capsule 650 mg PO Q4H PRN Pain 03/20/22 08/06/24 loperamide 2 mg capsule 2 mg PO QID PRN Diarrhea 03/20/22 08/06/24 artificial tears(hypromellose) 0.3 1 drp ophthalmic (eye) DAILY PRN 03/13/23 08/06/24 % eye drops Itching losartan 50 mg tablet 25 mg PO DAILY 03/13/23 08/06/24 patiromer calcium sorbitex 16.8 See Rx Instructions .Route 03/13/23 08/06/24 gram oral powder packet (Veltassa) .COMPLEX PRN Hyperkalemia empagliflozin 25 mg tablet 25 mg PO QAM 06/06/23 08/06/24 (Jardiance) cyanocobalamin (vitamin B-12) 1,000 mcg PO QAM 08/08/23 08/06/24 1,000 mcg capsule ferrous sulfate 325 mg (65 mg 325 mg PO QAM 08/08/23 08/06/24 iron) tablet filgrastim 480 mcg/1.6 mL 480 mcg SUBCUT DAILY PRN UNKNOWN 08/08/23 08/06/24 injection solution finasteride 5 mg tablet 10 mg PO QAM 12/11/23 08/06/24 ipratropium bromide 42 mcg (0.06 2 spray intranasal QID ALLERGIES 12/11/23 08/06/24 %) nasal spray mycophenolate sodium 360 mg 360 mg PO BID 12/11/23 08/06/24 tablet,delayed release apixaban 5 mg tablet (Eliquis) 5 mg PO BID 07/15/24 08/06/24 calcium polycarbophil 625 mg 625 mg PO QAM 07/15/24 08/06/24 tablet (FiberCon) cholestyramine-aspartame 4 gram See Rx Instructions .Route .COMPLEX 07/15/24 08/06/24 oral powder for susp in a packet duloxetine 60 mg capsule,delayed 60 mg PO QAM 07/15/24 08/06/24 release gabapentin 300 mg capsule 300 mg PO QAM 07/15/24 08/06/24 megestrol 400 mg/10 mL (40 mg/mL) 400 mg PO QAM 07/15/24 08/06/24 oral suspension metoclopramide HCl 5 mg tablet 5 mg PO TID 07/15/24 08/06/24 mupirocin 2 % topical ointment 1 applic topical BID PRN wound on 07/15/24 08/06/24 right arm sodium bicarbonate 650 mg tablet 1,300 mg PO BID 07/15/24 08/06/24 tacrolimus 0.75 mg tablet,extended 1.5 mg PO QAM 07/15/24 08/06/24 release 24 hr (Envarsus XR) tizanidine 4 mg tablet 2 - 4 mg PO BEDTIME PRN Spasms 07/15/24 08/06/24 Previous Rx's Medication Instructions Recorded pantoprazole 40 mg tablet,delayed 40 mg PO BID 6 weeks #84 tabs 04/12/23 release (Protonix) aspirin 81 mg tablet,delayed 81 mg PO DAILY #90 tabs 07/16/24 release magnesium L-threonate 48 mg 48 mg PO DAILY #90 caps 07/16/24 magnesium (667 mg) capsule metoprolol tartrate 25 mg tablet 25 mg PO DAILY #15 tabs 08/05/24 metoprolol succinate 25 mg 50 mg (2 x 25 mg) PO QAM #30 tabs 08/07/24 tablet,extended release 24 hr Allergies Allergy/AdvReac Type Severity Reaction Status Date / Time No Known Allergies Allergy Verified 08/06/24 09:03 Review of Systems 2 Const: Denies: fever(s) or chills Card: Denies: chest pain Resp: Denies: dyspnea GI: Denies: abdominal pain : Denies: dysuria, urinary frequency or urinary urgency Musc: Denies: neck pain or back pain Skin/Breast: Denies: rash 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 Carpal tunnel syndrome, bilateral upper limbs Surgical History Hx of colonoscopy less than 1 year, no polyps History of esophagogastroduodenoscopy (EGD) less than 1 year History of bilateral carpal tunnel release History of right breast biopsy for benign disease History of thoracotomy with chest tube, for pneumonia History of kidney transplant (09/2021) History of cholecystectomy History of umbilical hernia repair History of arthroscopic knee surgery x 3 History of arthroscopy of right shoulder Family History Father CAD (coronary artery disease) Chronic kidney disease (CKD) Mother Arthritis Other Diabetes Hyperlipidemia Hypertension Denies family history of Clotting disorder Dementia Psychiatric illness Suicide Anesthesia complication Bleeding disorder Lung disease Cancer Stroke Social History Smoking and tobacco/nicotine status: former use of tobacco/nicotine Alcohol intake: never Substance/Drug Use: never Household members: spouse Marital status: Current occupational status: disabled Physical Exam 2 Const: COMMON NORMALS: no acute distress GENERAL APPEARANCE: cooperative and comfortable ORIENTATION/CONSCIOUSNESS: Yes awake, Yes oriented to person, Yes oriented to place and Yes oriented to time HENMT: COMMON NORMALS: normocephalic, atraumatic and hearing grossly normal bilaterally HEAD & SCALP: normocephalic and atraumatic Resp: COMMON NORMALS: normal respiratory effort, No retractions, No use of accessory muscles and clear to auscultation bilaterally AUSCULTATION: clear to auscultation bilaterally Cardio: COMMON NORMALS: regular rhythm and No murmurs present (Cardio) R ATE: tachycardic RHYTHM: regular rhythm GI: COMMON NORMALS: Soft to palpation and No hepatosplenomegaly present A USCULTATION: Yes normoactive bowel sounds PALPATION: Yes Soft to palpation, No Tenderness to palpation present (GI), No Guarding due to palpation present (GI) and Yes No hepatosplenomegaly present Extremity: COMMON NORMALS: normal to inspection, capillary refill normal, no clubbing, cyanosis or edema, no calf tenderness and no pedal edema Neuro: SENSORIUM/ORIENTATION: Yes oriented to person, Yes oriented to place and Yes oriented to time Skin: COMMON NORMALS: no rashes or lesions noted GENERAL SKIN EXAM: no rashes or lesions noted Course 2 Vital Signs: Vital signs: Vital Signs Temperature 98.1 F 08/05/24 07:58 Pulse Rate 75 08/05/24 11:59 Respiratory Rate 19 H 08/05/24 10:06 Blood Pressure 110/74 08/05/24 11:59 Pulse Oximetry 100 08/05/24 11:59 Oxygen Delivery Me thod Room Air 08/05/24 10:06 MDM - Chest Pain Medical Decision Making 59-year-old male whose as SVT is really already resolved cardiac enzymes slightly elevated reviewed case Dr. Gonzales he recommended adding metoprolol 25 mg short acting on a as needed basis continue his other medications. Follow-up with Dr Gonzales within the next 1 to 2 weeks. Medical Records I reviewed the patient's medical records. Lab Data I reviewed the patient's lab results. 08/05/24 08:05 08/05/24 08:05 Radiology Impressions Chest X-Ray 08/05/24 07:58 IMPRESSION: 1. Mild cardiac enlargement unchanged. No acute finding. Laboratory Results WBC 8.04 10^3/uL (3.29-11.43) 08/05/24 08:05 RBC 3.66 10^6/uL (3.85-5.65) L 08/05/24 08:05 Hgb 11.00 g/dL (11.27-16.99) L 08/05/24 08:05 Hct 34.9 % (37-53) L 08/05/24 08:05 MCV 95.4 fl (82-101) 08/05/24 08:05 MCH 30.1 pg (27-33) 08/05/24 08:05 MCHC 31.5 g/dL (30-55) 08/05/24 08:05 RDW 15.9 % (12.1-15.1) H 08/05/24 08:05 Plt Count 259 10^3/cmm (157-399) 08/05/24 08:05 MPV 8.6 fL (7.4-10.4) 08/05/24 08:05 Lymph % (Auto) Not Reportable 08/05/24 08:05 [place] % (Auto) Not Reportable 08/05/24 08:05 Lymph # (Auto) Not Reportable 08/05/24 08:05 [place] # (Auto) Not Reportable 08/05/24 08:05 Total Counted 100 (0-100) 08/05/24 08:05 Atypical Lymphs % 0.0 % (0-5) 08/05/24 08:05 Absolute Neutrophils 3.1 10^3/cmm (1.4-6.5) 08/05/24 08:05 Segmented Neutrophils 33 % 08/05/24 08:05 Band Neutrophils 5.0 % 08/05/24 08:05 Absolute Lymphocytes 3.4 10^3/cmm (1.2-3.4) 08/05/24 08:05 Lymphocytes (Manual) 42 % 08/05/24 08:05 Monocytes (Manual) 15.0 % 08/05/24 08:05 Absolute Monocytes 1.2 10^3/cmm (0.1-0.6) H 08/05/24 08:05 Eosinophils (Manual) 1 % 08/05/24 08:05 Absolute Eosinophils 0.1 10^3/cmm (0.0-0.7) 08/05/24 08:05 Basophils (Manual) 0.0 % 08/05/24 08:05 Absolute Basophils 0.0 10^3/cmm (0.0-0.2) 08/05/24 08:05 Metamyelocytes 1.0 % 08/05/24 08:05 Myelocytes 3.0 % 08/05/24 08:05 Platelet Estimate Normal (Normal) 08/05/24 08:05 Anisocytosis Trace 08/05/24 08:05 Sodium 140 mmol/L (136-145) 08/05/24 08:05 Potassium 4.4 mmol/L (3.5-5.1) 08/05/24 08:05 Chloride 107 mmol/L (98-107) 08/05/24 08:05 Carbon Dioxide 19 mmol/L (22-29) L 08/05/24 08:05 Anion Gap 18.4 (5-19) 08/05/24 08:05 BUN 28 mg/dL (6-20) H 08/05/24 08:05 Creatinine 1.8 mg/dL (0.7-1.2) H 08/05/24 08:05 GFR Calculation 38.9 mL/min (90-130) L 08/05/24 08:05 Glucose 117 mg/dL (65-115) H 08/05/24 08:05 Calculated Osmolality 297 mOsm/kg (285-295) H 08/05/24 08:05 Calcium 9.6 mg/dL (8.5-10.5) 08/05/24 08:05 Total Bilirubin 0.5 mg/dL (0.15-1.2) 08/05/24 08:05 AST 15 U/L (0-40) 08/05/24 08:05 ALT 8 U/L (0-41) 08/05/24 08:05 Alkaline Phosphatase 40 U/L (40-130) 08/05/24 08:05 Troponin T Baseline 191 ng/L (0-15) H* 08/05/24 08:05 Troponin T 120 Minute 173.1 ng/L (0-15) H 08/05/24 10:44 Delta Troponin T -17.9 ABS# (0-10) L 08/05/24 10:44 Total Protein 6.0 g/dL (6.6-8.7) L 08/05/24 08:05 Albumin 4.6 g/dL (3.5-5.2) 08/05/24 08:05 Globulin 1.4 g/dL (1.3-4.6) 08/05/24 08:05 All radiology interpretation(s) finalized by discharge Discharge Plan Discharge Patient Disposition: Home Clinical Impression: SVT (supraventricular tachycardia), FSGS (focal segmental glomerulosclerosis) Condition: Stable Prescriptions: New metoprolol tartrate 25 mg tablet 25 mg PO DAILY Qty: 15 0RF No Action tamsulosin 0.4 mg capsule 0.4 mg PO QAM fluticasone propionate 50 mcg/actuation spray,suspension 2 spray INTRANASAL DAILY PRN (Reason: Allergy Symptoms) cholecalciferol (vitamin D3) 25 mcg (1,000 unit) capsule 25 mcg PO QAM hydromorphone 4 mg tablet 4 mg PO Q4H PRN (Reason: Pain) famotidine 20 mg tablet 20 mg PO BID Jardiance 25 mg tablet 25 mg PO QAM ferrous sulfate 325 mg (65 mg iron) tablet 325 mg PO QAM filgrastim 480 mcg/1.6 mL solution 480 mcg SUBCUT DAILY PRN (Reason: UNKNOWN) cyanocobalamin (vitamin B-12) 1,000 mcg capsule 1,000 mcg PO QAM acetaminophen 325 mg capsule 650 mg PO Q4H PRN (Reason: Pain) loperamide 2 mg capsule 2 mg PO QID PRN (Reason: Diarrhea) metoprolol succinate 25 mg tablet extended release 24 hr 50 mg PO QAM Qty: 30 0RF atorvastatin 10 mg tablet 10 mg PO BEDTIME pantoprazole [Protonix] 40 mg tablet,delayed release (DR/EC) 40 mg PO BID 42 Days Qty: 84 1RF mycophenolate sodium 360 mg tablet,delayed release (DR/EC) 360 mg PO BID ipratropium bromide 42 mcg (0.06 %) spray,non-aerosol 2 spray INTRANASAL QID finasteride 5 mg tablet 10 mg PO QAM megestrol 400 mg/10 mL (40 mg/mL) suspension 400 mg PO QAM tizanidine 4 mg tablet 2 - 4 mg PO BEDTIME PRN (Reason: Spasms) metoclopramide HCl 5 mg tablet 5 mg PO TID sodium bicarbonate 650 mg tablet 1,300 mg PO BID calcium polycarbophil [FiberCon] 625 mg Tablet 625 mg PO QAM gabapentin 300 mg capsule 300 mg PO QAM mupirocin 2 % ointment 1 applic TOPICAL BID PRN (Reason: wound on right arm) cholestyramine-aspartame 4 gram powder in packet See Rx Instructions .ROUTE .COMPLEX Rx Instructions: TAKE TWO GRAMS (1/2 packet) EVERY DAY IN THE MORNING. Take 4 hours apart from Mycophenolic Acid. duloxetine 60 mg capsule,delayed release(DR/EC) 60 mg PO QAM Eliquis 5 mg tablet 5 mg PO BID Envarsus XR 0.75 mg Tablet Extended Release 24 Hr 1.5 mg PO QAM Rx Instructions: must be taken on empty stomach aspirin 81 mg tablet,delayed release (DR/EC) 81 mg PO DAILY Qty: 90 0RF magnesium L-threonate 48 mg magnesium (667 mg) capsule 48 mg PO DAILY Qty: 90 0RF prednisone 5 mg tablet 5 mg PO QAM diphenoxylate-atropine 2.5-0.025 mg tablet 2 tab PO QID PRN (Reason: Diarrhea) artificial tears(hypromellose) 0.3 % Drops 1 drp OPHTHALMIC (EYE) DAILY PRN (Reason: Itching) losartan 50 mg Tablet 25 mg PO DAILY Veltassa 16.8 gram Powder In Packet See Rx Instructions .ROUTE .COMPLEX PRN (Reason: Hyperkalemia) Rx Instructions: Take 16.8 g by mouth 3 times weekly. Discharge Orders: Discharge ED (Routine); Ordered 08/05/24 Ordered By: Franky Owens Referrals: Jhony Kaur DO [Primary Care Provider] - Discharge Diet: Usual diet Discharge Activity: Resume usual activity Patient Instructions: Opioid Safety, Pain Management Activity Restrictions/Additional Instructions: Thank you for choosing [facility] for your healthcare needs today. It is very important that you follow up as instructed or that you return to the Emergency Department should you have concerns or if your condition changes or worsens in any way. You were seen in the emergency room after an episode of SVT. You had resolved spontaneously by the time you had arrived in the emergency room. Your cardiac enzymes are elevated but similar to what has been seen in the past with these episodes. Reviewed your case with Dr. Gonzales at this point he did not feel any further evaluation or admission would be needed. He did recommend metoprolol short acting to use on occasion if your heart rate increases significantly at home. If it is not successful or if you have persistent symptoms return to the emergency room. Keep your appointment with Dr. Gonzales tomorrow and with the cardiology group in [place]. Coding Level of Care Code ED Core Manager for Audrey Almanza
[2024-08-05 08:13] LABS: Hematocrit 34.9 % (37-53); Mean Corpuscular HGB Conc 31.5 g/dL (30-55); Mean Corpuscular Hemoglobin 30.1 pg (27-33); Mean Corpuscular Volume 95.4 fl (82-101); Mean Platelet Volume 8.6 fL (7.4-10.4); Platelet Count 259 10^3/cmm (157-399); Red Blood Count 3.66 10^6/uL (3.85-5.65); Red Cell Distribution Width 15.9 % (12.1-15.1); White Blood Count 8.04 10^3/uL (3.29-11.43)
[2024-08-05 08:30] LABS: Alanine Aminotransferase 8 U/L (0-41); Albumin Level 4.6 g/dL (3.5-5.2); Alkaline Phosphatase 40 U/L (40-130); Anion Gap 18.4 (5-19); Aspartate Amino Transferase 15 U/L (0-40); Blood Urea Nitrogen 28 mg/dL (6-20); Calcium 9.6 mg/dL (8.5-10.5); Carbon Dioxide 19 mmol/L (22-29); Chloride 107 mmol/L (98-107); Creatinine Clr Calc Pharmacy 52.9928; Globulin 1.4 g/dL (1.3-4.6); Glomerular Filtration Rate 38.9 mL/min (90-130); Glucose 117 mg/dL (65-115); Osmolality Calculated 297 mOsm/kg (285-295); Potassium 4.4 mmol/L (3.5-5.1); Sodium 140 mmol/L (136-145); Total Bilirubin 0.5 mg/dL (0.15-1.2)
[2024-08-05 08:34] LABS: Troponin(5th) Baseline 191 ng/L (0-15)
[2024-08-05 09:01] LABS: Slide Review Slide Review Perform
[2024-08-05 09:02] LABS: Absolute Eosinophils 0.1 10^3/cmm (0.0-0.7); Absolute Neutrophil 3.1 10^3/cmm (1.4-6.5); Absolute Segmented Neutrophil 2.7 10/cmm (1.6-7.1); Anisocytosis Trace; Band Neutrophils Absolute 0.4 10^3/cmm (0.0-1.2); Eosinophils 1 %; Lymphocytes 42 %; Lymphocytes Absolute 3.4 10^3/cmm (1.2-3.4); Monocytes Absolute 1.2 10^3/cmm (0.1-0.6); Platelet Estimate Normal (Normal); Segmented Neutrophils 33 %; Total Cells Counted 100 (0-100)
--- NOTE | 2024-08-05 09:58 | ECG_ITS ---
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 Measurements Intervals [place] Rate: 88 P: 56 [place]: 171 QRS: -54 QRSD: 118 T: 90 QT: 342 QTc: 415 Interpretive Statements SINUS RHYTHM LEFT ANTERIOR FASCICULAR BLOCK [QRS AXIS <= -45, QR IN I, RS IN II] VOLTAGE CRITERIA FOR LVH [MEETS CRITERIA IN ONE OF: R(aVL), S(V1), R(V5), R(V5/V6)+S(V1)] POSSIBLE LATERAL MYOCARDIAL INFARCTION , OF INDETERMINATE AGE [30 ms Q WAVE IN I/aVL/V5/V6] Compared to ECG 08/05/2024 08:00:23 Sinus tachycardia no longer present ST (T wave) deviation no longer present Myocardial infarct finding still present Electronically Signed On 08-07-2024 22:20:01 HYDRAULIC RIVETER by David Gonzales M.D. [email or web address]
[2024-08-05 11:13] LABS: Troponin 5 2HR Delta -17.9 ABS# (0-10)
[2024-08-05 11:14] LABS: Troponin 5 2HR 173.1 ng/L (0-15)
== END 2024-08-05 12:00 | disposition home or self-care (01) ==
PROVIDERS: Emergency Provider Family Medicine; PCP Internal Medicine
DX: I47.10 Supraventricular tachycardia, unspecified (principal); Z79.01 Long term (current) use of anticoagulants; Z79.82 Long term (current) use of aspirin; Z87.891 Personal history of nicotine dependence; I12.0 Hypertensive chronic kidney disease with stage 5 chronic kidney disease or end stage renal disease; N18.6 End stage renal disease
CPT/HCPCS: 71045; 80053; 84484; 85007; 85025; 93005; 99285

== ENCOUNTER → 2024-08-06 08:52 | Outpatient (BNVA) | payer MEDICARE, SELFPAY | PROVIDERS: PCP Internal Medicine; Visit Provider Internal Medicine | DX: R00.2 Palpitations (principal); Z94.0 Kidney transplant status; N05.1 Unspecified nephritic syndrome with focal and segmental glomerular lesions; I10 Essential (primary) hypertension; I47.10 Supraventricular tachycardia, unspecified; I48.91 Unspecified atrial fibrillation; Z87.891 Personal history of nicotine dependence; Z79.01 Long term (current) use of anticoagulants; Z79.82 Long term (current) use of aspirin | CPT/HCPCS: 99214 ==

== ENCOUNTER 2024-09-05 15:50 | Emergency (ER) | payer OTHER, MEDICARE, SELFPAY ==
[2024-09-05] VITALS (27 sets, daily range): BP systolic 67–121; BP diastolic 48–66; PULSE 75–183; RESP 15–30; TEMP 36.6; O2SAT 72–100; BMI 28.3
--- NOTE | 2024-09-05 15:52 | XRR_ITS ---
PROCEDURE INFORMATION: Exam: XR Chest Exam date and time: 09/05/2024 4:18 PM Age: 59 years old Clinical indication: Shortness of breath; Patient HX: SOB TECHNIQUE: Imaging protocol: Radiologic exam of the chest. Views: 1 view. COMPARISON: CR XR chest 1V portable [id number] 08/05/2024 8:04 AM FINDINGS: Tubes, catheters and devices: None. Lungs: Linear density identified within the left perihilar and basilar lung. The lungs appear otherwise clear. Lung volumes are decreased. Pleural spaces: No pleural effusion. No pneumothorax. Heart/Mediastinum: The cardiac silhouette appears borderline prominent. Bones/joints: Diffusely decreased bone density. Generalized bony degenerative changes. Soft tissues: This study is limited by patient's body habitus. XR/XR chest 1V portable [id number] IMPRESSION: 1. Borderline prominence of the cardiac silhouette. 2. Linear left perihilar and basilar pulmonary atelectasis, scarring.
--- NOTE | 2024-09-05 15:52 | ECG_ITS ---
[facility]: 2024-09-05 Pat Name: Mark Mccabe Department: Room: Gender: Male Assistant At Surgery: : 1965 Requested By: Tami Sparks Order Number: [id number] Mirian MD: MARRY DEWEY Measurements Intervals [place] Rate: 192 P: 0 CA: 0 QRS: -44 QRSD: 113 T: 107 QT: 266 QTc: 476 Interpretive Statements SUPRAVENTRICULAR TACHYCARDIA LEFT AXIS DEVIATION [QRS AXIS < -30] INCOMPLETE RIGHT BUNDLE BRANCH BLOCK [90+ ms QRS DURATION, TERMINAL R IN V1/V2, 40+ ms S IN I/aVL/V4/V5/V6] LEFT VENTRICULAR HYPERTROPHY AND ST-T CHANGE [VOLTAGE CRITERIA PLUS ST/T ABNORMALITY] Compared to ECG 08/05/2024 09:56:39 Left-axis deviation now present Incomplete right bundle-branch block now present ST (T wave) deviation now present Sinus rhythm no longer present Electronically Signed On 09-05-2024 18:38:26 ZONE MAINTENANCE TECHNICIAN by MARRY DEWEY [email or web address]
[2024-09-05] MEDS: sodium chloride 0.9% 1,000 ML 999 ML IV (16:18)
--- NOTE | 2024-09-05 16:19 | ED_ITS ---
HPI - SOB/Dyspnea 2 General: Chief Complaint: Shortness of Breath/Dyspnea Stated Complaint: SOB Time Seen by Provider: 09/05/24 16:03 Source: patient Mode of arrival: ambulatory Limitations: no limitations History of Present Illness: HPI Narrative: 59-year-old male with a history of SVT s tates that he has been having palpitations over the last day states he had felt lightheaded had some hypotension along with some shortness of breath. He states his belly feels only has had SVT in the past. He denies any fevers. Associated symptoms: Reports palpitations; Deny abdominal pain, fever(s), nausea or vomiting Related Data Home Medications Medication Instructions Recorded Confirmed cholecalciferol (vitamin D3) 25 25 mcg PO QAM 01/14/20 08/06/24 mcg (1,000 unit) capsule fluticasone propionate 50 2 spray intranasal DAILY PRN 01/14/20 08/06/24 mcg/actuation nasal Allergy Symptoms spray,suspension tamsulosin 0.4 mg capsule 0.4 mg PO QAM 01/14/20 08/06/24 atorvastatin 10 mg tablet 10 mg PO BEDTIME 02/13/21 08/06/24 famotidine 20 mg tablet 20 mg PO BID 07/11/21 08/06/24 hydromorphone 4 mg tablet 4 mg PO Q4H PRN Pain 07/11/21 08/06/24 diphenoxylate-atropine 2.5 2 tab PO QID PRN Diarrhea 01/16/22 08/06/24 mg-0.025 mg tablet prednisone 5 mg tablet 5 mg PO QAM 01/16/22 08/06/24 acetaminophen 325 mg capsule 650 mg PO Q4H PRN Pain 03/20/22 08/06/24 loperamide 2 mg capsule 2 mg PO QID PRN Diarrhea 03/20/22 08/06/24 artificial tears(hypromellose) 0.3 1 drp ophthalmic (eye) DAILY PRN 03/13/23 08/06/24 % eye drops Itching losartan 50 mg tablet 25 mg PO DAILY 03/13/23 08/06/24 patiromer calcium sorbitex 16.8 See Rx Instructions .Route 03/13/23 08/06/24 gram oral powder packet (Veltassa) .COMPLEX PRN Hyperkalemia empagliflozin 25 mg tablet 25 mg PO QAM 06/06/23 08/06/24 (Jardiance) cyanocobalamin (vitamin B-12) 1,000 mcg PO QAM 08/08/23 08/06/24 1,000 mcg capsule ferrous sulfate 325 mg (65 mg 325 mg PO QAM 08/08/23 08/06/24 iron) tablet filgrastim 480 mcg/1.6 mL 480 mcg SUBCUT DAILY PRN UNKNOWN 08/08/23 08/06/24 injection solution finasteride 5 mg tablet 10 mg PO QAM 12/11/23 08/06/24 ipratropium bromide 42 mcg (0.06 2 spray intranasal QID ALLERGIES 12/11/23 08/06/24 %) nasal spray mycophenolate sodium 360 mg 360 mg PO BID 12/11/23 08/06/24 tablet,delayed release apixaban 5 mg tablet (Eliquis) 5 mg PO BID 07/15/24 08/06/24 calcium polycarbophil 625 mg 625 mg PO QAM 07/15/24 08/06/24 tablet (FiberCon) cholestyramine-aspartame 4 gram See Rx Instructions .Route .COMPLEX 07/15/24 08/06/24 oral powder for susp in a packet duloxetine 60 mg capsule,delayed 60 mg PO QAM 07/15/24 08/06/24 release gabapentin 300 mg capsule 300 mg PO QAM 07/15/24 08/06/24 megestrol 400 mg/10 mL (40 mg/mL) 400 mg PO QAM 07/15/24 08/06/24 oral suspension metoclopramide HCl 5 mg tablet 5 mg PO TID 07/15/24 08/06/24 mupirocin 2 % topical ointment 1 applic topical BID PRN wound on 07/15/24 08/06/24 right arm sodium bicarbonate 650 mg tablet 1,300 mg PO BID 07/15/24 08/06/24 tacrolimus 0.75 mg tablet,extended 1.5 mg PO QAM 07/15/24 08/06/24 release 24 hr (Envarsus XR) tizanidine 4 mg tablet 2 - 4 mg PO BEDTIME PRN Spasms 07/15/24 08/06/24 Previous Rx's Medication Instructions Recorded pantoprazole 40 mg tablet,delayed 40 mg PO BID 6 weeks #84 tabs 04/12/23 release (Protonix) aspirin 81 mg tablet,delayed 81 mg PO DAILY #90 tabs 07/16/24 release magnesium L-threonate 48 mg 48 mg PO DAILY #90 caps 07/16/24 magnesium (667 mg) capsule metoprolol tartrate 25 mg tablet 25 mg PO DAILY #15 tabs 08/05/24 metoprolol succinate 25 mg 50 mg (2 x 25 mg) PO QAM #30 tabs 08/07/24 tablet,extended release 24 hr Allergies Allergy/AdvReac Type Severity Reaction Status Date / Time No Known Allergies Allergy Verified 08/06/24 09:03 Review of Systems 2 Const: Reports: fatigue; Denies: fever(s) or chills Eyes: Denies: blurry vision or eye discomfort ENMT: Denies: throat pain or dental pain Card: Reports: palpitations Resp: Reports: dyspnea GI: Denies: abdominal pain, nausea, vomiting or diarrhea Musc: Denies: back pain Skin/Breast: Denies: rash Neuro: Denies: headache(s) 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 Carpal tunnel syndrome, bilateral upper limbs Surgical History Hx of colonoscopy less than 1 year, no polyps History of esophagogastroduodenoscopy (EGD) less than 1 year History of bilateral carpal tunnel release History of right breast biopsy for benign disease History of thoracotomy with chest tube, for pneumonia History of kidney transplant (09/2021) History of cholecystectomy History of umbilical hernia repair History of arthroscopic knee surgery x 3 History of arthroscopy of right shoulder Family History Father CAD (coronary artery disease) Chronic kidney disease (CKD) Mother Arthritis Other Diabetes Hyperlipidemia Hypertension Denies family history of Clotting disorder Dementia Psychiatric illness Suicide Anesthesia complication Bleeding disorder Lung disease Cancer Stroke Social History Smoking and tobacco/nicotine status: former use of tobacco/nicotine Alcohol intake: never Substance/Drug Use: never Household members: spouse Marital status: Current occupational status: disabled Physical Exam 2 Const: COMMON NORMALS: patient oriented x3 HENMT: COMMON NORMALS: normocephalic and atraumatic HEAD & SCALP: n ormocephalic and atraumatic Eye: COMMON NORMALS: conjunctivae normal CONJUNCTIVA: Yes conjunctivae normal Neck/C-Spine: COMMON NORMALS: full ROM and supple Chest: COMMONS NORMALS: normal inspection of the chest Resp: COMMON NORMALS: normal respiratory effort, No retractions, No use of accessory muscles and clear to auscultation bilaterally AUSCULTATION: clear to auscultation bilaterally Cardio: COMMON NORMALS: regular rhythm and No murmurs present (Cardio) R ATE: tachycardic RHYTHM: regular rhythm Extremity: COMMON NORMALS: normal to inspection and full ROM Neuro: COMMON NORMALS: patient oriented x3, moves all extremities and no focal motor deficits Psych: COMMON NORMALS: mental status grossly normal, Normal thought process present and cooperative THOUGHT PROCESS: Normal thought process present Skin: COMMON NORMALS: no rashes or lesions noted and no wounds GENERAL SKIN EXAM: no rashes or lesions noted Course 2 Vital Signs: Vital signs: Vital Signs Temperature 97.8 F 09/05/24 16:06 Pulse Rate 96 09/05/24 16:40 Respiratory Rate 20 H 09/05/24 16:06 Blood Pressure 103/62 09/05/24 16:40 Pulse Oximetry 92 09/05/24 16:40 Oxygen Delivery Me thod Room Air 09/05/24 16:40 MDM - SOB/Dyspnea Medical Decision Making Patient presents here with SVT converted here he feels much improved blood work here is normal patient is stable for discharge follow-up PCP return if worsening. Medical Records I reviewed the patient's medical records. Lab Data I reviewed the patient's lab results. 09/05/24 16:20 09/05/24 16:20 Labs/Radiology: Radiology Impressions Chest X-Ray 09/05/24 15:52 IMPRESSION: 1. Borderline prominence of the cardiac silhouette. 2. Linear left perihilar and basilar pulmonary atelectasis, scarring. Laboratory Results WBC 9.74 10^3/uL (3.29-11.43) 09/05/24 16:20 RBC 3.48 10^6/uL (3.85-5.65) L 09/05/24 16:20 Hgb 10.10 g/dL (11.27-16.99) L 09/05/24 16:20 Hct 31.7 % (37-53) L 09/05/24 16:20 MCV 91.1 fl (82-101) 09/05/24 16:20 MCH 29.0 pg (27-33) 09/05/24 16:20 MCHC 31.9 g/dL (30-55) 09/05/24 16:20 RDW 15.5 % (12.1-15.1) H 09/05/24 16:20 Plt Count 284 10^3/cmm (157-399) 09/05/24 16:20 MPV 9.1 fL (7.4-10.4) 09/05/24 16:20 Neut % (Auto) 67.8 % 09/05/24 16:20 Lymph % (Auto) 16.5 % 09/05/24 16:20 [place] % (Auto) 12.2 % 09/05/24 16:20 Eos % (Auto) 0.5 % 09/05/24 16:20 Baso % (Auto) 0.2 % 09/05/24 16:20 Neut # (Auto) 6.60 10^3/uL (1.8-7.7) 09/05/24 16:20 Lymph # (Auto) 1.6 10^3/uL (0.8-4.8) 09/05/24 16:20 [place] # (Auto) 1.2 10^3/uL (0.2-0.9) H 09/05/24 16:20 Eos # (Auto) 0.1 10^3/uL (0.0-0.8) 09/05/24 16:20 Baso # (Auto) 0.0 10^3/uL (0.0-0.1) 09/05/24 16:20 Nucleated RBC % (auto) 0 % 09/05/24 16:20 Nucleated RBCs # 0.0 /100WBC 09/05/24 16:20 Sodium 135 mmol/L (136-145) L 09/05/24 16:20 Potassium 4.3 mmol/L (3.5-5.1) 09/05/24 16:20 Chloride 99 mmol/L (98-107) 09/05/24 16:20 Carbon Dioxide 16 mmol/L (22-29) L 09/05/24 16:20 Anion Gap 24.3 (5-19) H 09/05/24 16:20 BUN 20 mg/dL (6-20) 09/05/24 16:20 Creatinine 2.0 mg/dL (0.7-1.2) H 09/05/24 16:20 GFR Calculation 34.5 mL/min (90-130) L 09/05/24 16:20 Glucose 224 mg/dL (65-115) H 09/05/24 16:20 Calculated Osmolality 290 mOsm/kg (285-295) 09/05/24 16:20 Calcium 9.1 mg/dL (8.5-10.5) 09/05/24 16:20 Total Bilirubin 0.6 mg/dL (0.15-1.2) 09/05/24 16:20 AST 17 U/L (0-40) 09/05/24 16:20 ALT 10 U/L (0-41) 09/05/24 16:20 Alkaline Phosphatase 71 U/L (40-130) 09/05/24 16:20 Total Protein 5.7 g/dL (6.6-8.7) L 09/05/24 16:20 Albumin 3.8 g/dL (3.5-5.2) 09/05/24 16:20 Globulin 1.9 g/dL (1.3-4.6) 09/05/24 16:20 All radiology interpretation(s) finalized by discharge EKG Data EKG 1: I personally reviewed and interpreted this EKG as follows: EKG Interpretation Date: 09/05/24 EKG interpretation time: 16:01 Interpretation: svt hr [address] elevation qrs 113 qtc 364 Discharge Plan Discharge Patient Disposition: Home Clinical Impression: SVT (supraventricular tachycardia) Condition: Stable Prescriptions: No Action tamsulosin 0.4 mg capsule 0.4 mg PO QAM fluticasone propionate 50 mcg/actuation spray,suspension 2 spray INTRANASAL DAILY PRN (Reason: Allergy Symptoms) cholecalciferol (vitamin D3) 25 mcg (1,000 unit) capsule 25 mcg PO QAM hydromorphone 4 mg tablet 4 mg PO Q4H PRN (Reason: Pain) famotidine 20 mg tablet 20 mg PO BID Jardiance 25 mg tablet 25 mg PO QAM ferrous sulfate 325 mg (65 mg iron) tablet 325 mg PO QAM filgrastim 480 mcg/1.6 mL solution 480 mcg SUBCUT DAILY PRN (Reason: UNKNOWN) cyanocobalamin (vitamin B-12) 1,000 mcg capsule 1,000 mcg PO QAM acetaminophen 325 mg capsule 650 mg PO Q4H PRN (Reason: Pain) loperamide 2 mg capsule 2 mg PO QID PRN (Reason: Diarrhea) metoprolol succinate 25 mg tablet extended release 24 hr 50 mg PO QAM Qty: 30 0RF atorvastatin 10 mg tablet 10 mg PO BEDTIME pantoprazole [Protonix] 40 mg tablet,delayed release (DR/EC) 40 mg PO BID 42 Days Qty: 84 1RF mycophenolate sodium 360 mg tablet,delayed release (DR/EC) 360 mg PO BID ipratropium bromide 42 mcg (0.06 %) spray,non-aerosol 2 spray INTRANASAL QID finasteride 5 mg tablet 10 mg PO QAM megestrol 400 mg/10 mL (40 mg/mL) suspension 400 mg PO QAM tizanidine 4 mg tablet 2 - 4 mg PO BEDTIME PRN (Reason: Spasms) metoclopramide HCl 5 mg tablet 5 mg PO TID sodium bicarbonate 650 mg tablet 1,300 mg PO BID calcium polycarbophil [FiberCon] 625 mg Tablet 625 mg PO QAM gabapentin 300 mg capsule 300 mg PO QAM mupirocin 2 % ointment 1 applic TOPICAL BID PRN (Reason: wound on right arm) cholestyramine-aspartame 4 gram powder in packet See Rx Instructions .ROUTE .COMPLEX Rx Instructions: TAKE TWO GRAMS (1/2 packet) EVERY DAY IN THE MORNING. Take 4 hours apart from Mycophenolic Acid. duloxetine 60 mg capsule,delayed release(DR/EC) 60 mg PO QAM Eliquis 5 mg tablet 5 mg PO BID Envarsus XR 0.75 mg Tablet Extended Release 24 Hr 1.5 mg PO QAM Rx Instructions: must be taken on empty stomach aspirin 81 mg tablet,delayed release (DR/EC) 81 mg PO DAILY Qty: 90 0RF magnesium L-threonate 48 mg magnesium (667 mg) capsule 48 mg PO DAILY Qty: 90 0RF prednisone 5 mg tablet 5 mg PO QAM diphenoxylate-atropine 2.5-0.025 mg tablet 2 tab PO QID PRN (Reason: Diarrhea) artificial tears(hypromellose) 0.3 % Drops 1 drp OPHTHALMIC (EYE) DAILY PRN (Reason: Itching) losartan 50 mg Tablet 25 mg PO DAILY Veltassa 16.8 gram Powder In Packet See Rx Instructions .ROUTE .COMPLEX PRN (Reason: Hyperkalemia) Rx Instructions: Take 16.8 g by mouth 3 times weekly. metoprolol tartrate 25 mg tablet 25 mg PO DAILY Qty: 15 0RF Discharge Orders: Discharge ED (Routine); Ordered 09/05/24 Ordered By: Tami Sparks Referrals: Jhony Kaur DO [Primary Care Provider] - 4-7 days Discharge Diet: Advance as tolerated Discharge Activity: Resume usual activity Patient Instructions: Supraventricular Tachycardia (ED) Coding Level of Care Code ED Breaker Engineer for Audrey Almanza
[2024-09-05 16:30] LABS: Basophils % 0.2 %; Eosinophils # 0.1 10^3/uL (0.0-0.8); Eosinophils % 0.5 %; Hematocrit 31.7 % (37-53); Lymphocytes # 1.6 10^3/uL (0.8-4.8); Lymphocytes % 16.5 %; Mean Corpuscular HGB Conc 31.9 g/dL (30-55); Mean Corpuscular Volume 91.1 fl (82-101); Mean Platelet Volume 9.1 fL (7.4-10.4); Monocytes # 1.2 10^3/uL (0.2-0.9); Monocytes % 12.2 %; Neutrophils % 67.8 %; Nucleated Red Blood Cells % 0 %; Platelet Count 284 10^3/cmm (157-399); Red Blood Count 3.48 10^6/uL (3.85-5.65); Red Cell Distribution Width 15.5 % (12.1-15.1); White Blood Count 9.74 10^3/uL (3.29-11.43)
[2024-09-05 16:52] LABS: Alanine Aminotransferase 10 U/L (0-41); Albumin Level 3.8 g/dL (3.5-5.2); Alkaline Phosphatase 71 U/L (40-130); Anion Gap 24.3 (5-19); Aspartate Amino Transferase 17 U/L (0-40); Blood Urea Nitrogen 20 mg/dL (6-20); Calcium 9.1 mg/dL (8.5-10.5); Carbon Dioxide 16 mmol/L (22-29); Chloride 99 mmol/L (98-107); Creatinine Clr Calc Pharmacy 48.1069; Globulin 1.9 g/dL (1.3-4.6); Glomerular Filtration Rate 34.5 mL/min (90-130); Glucose 224 mg/dL (65-115); Osmolality Calculated 290 mOsm/kg (285-295); Potassium 4.3 mmol/L (3.5-5.1); Sodium 135 mmol/L (136-145); Total Bilirubin 0.6 mg/dL (0.15-1.2); Total Protein 5.7 g/dL (6.6-8.7)
== END 2024-09-05 18:58 | disposition home or self-care (01) ==
PROVIDERS: Emergency Provider Emergency Medicine; PCP Internal Medicine
DX: I47.10 Supraventricular tachycardia, unspecified (principal); Z79.01 Long term (current) use of anticoagulants; Z79.82 Long term (current) use of aspirin; Z87.891 Personal history of nicotine dependence; E78.5 Hyperlipidemia, unspecified; I12.0 Hypertensive chronic kidney disease with stage 5 chronic kidney disease or end stage renal disease; N18.6 End stage renal disease
CPT/HCPCS: 36415; 71045; 80053; 85025; 93005; 99285; J7030

== ENCOUNTER 2024-10-28 07:53 | Outpatient (CLI) | payer OTHER, MEDICARE, SELFPAY ==
--- NOTE | 2024-10-28 07:57 | MR_ITS ---
WS: [id number] MRI LUMBAR SPINE NONCONTRAST TECHNIQUE: Sagittal T1, T2 and STIR imaging. Axial T1 and T2 imaging. CLINICAL INFORMATION: LUMBAR RADICULOPATHY COMPARISON: MRI 2017 FINDINGS: Mild lumbar curve. Degenerative endplate type changes RIGHT L4. This is progressed compared to previous. No acute compression. Slight retrolisthesis L2 on L3. Slight anterolisthesis L5 on S1. L1-L2: Mild disc bulging with slight narrowing the LEFT subarticular recess. Mild facet arthropathy. L2-L3: Mild disc bulging with moderate subarticular recess bilaterally. Mild central canal stenosis. Mild facet arthropathy. Foramen are patent. L3-L4: Mild disc bulging. Moderate facet arthropathy. Small LEFT foraminal protrusion impinges the exiting LEFT L3 nerve root with moderate LEFT foraminal narrowing. L4-L5: Mild annular bulging. Slight effacement of the ventral thecal sac. Tiny annular fissure. Foramen are patent. L5-S1: Mild disc bulging with slight effacement of the ventral thecal sac. Mild RIGHT and no significant LEFT foraminal narrowing. Moderate facet arthropathy. Marked atrophy of the bilateral kidneys. LEFT renal cysts. Visualized pelvic bony structures: Normal. Paravertebral soft tissues: Normal. MR/MR lumbar spine wo con* [id number] IMPRESSION: 1. Mild lumbar curve. No acute compression. 2. LEFT foraminal protrusion L3-4 impinges the exiting L3 nerve root with mode rate LEFT foraminal narrowing appears slightly progressed compared to previous. Recommend correlation LEFT L3 nerve root symptoms. 3. Mild central canal stenosis L2-3 due to disc bulging with slight retrolisth esis is progressed. Moderate impingement of the subarticular recess bilaterally appears progressed. 4. Small annular fissure at L4-5. 5. Mild RIGHT L5-S1 foraminal narrowing.
== END 2024-10-28 07:54 | disposition home or self-care (01) ==
LOC: RAD 07:55
PROVIDERS: PCP Family Medicine; Visit Provider Family Medicine
DX: M54.16 Radiculopathy, lumbar region (principal); M43.8X6 Other specified deforming dorsopathies, lumbar region; M51.26 Other intervertebral disc displacement, lumbar region; R93.7 Abnormal findings on diagnostic imaging of other parts of musculoskeletal system; M48.061 Spinal stenosis, lumbar region without neurogenic claudication; M51.369 Other intervertebral disc degeneration, lumbar region without mention of lumbar back pain or lower extremity pain; M48.07 Spinal stenosis, lumbosacral region; M47.896 Other spondylosis, lumbar region; M51.379 Other intervertebral disc degeneration, lumbosacral region without mention of lumbar back pain or lower extremity pain; M47.897 Other spondylosis, lumbosacral region; N26.1 Atrophy of kidney (terminal); N28.1 Cyst of kidney, acquired
CPT/HCPCS: 72148

== ENCOUNTER 2025-02-20 07:14 | Emergency (ER) | payer MEDICARE, OTHER, SELFPAY ==
--- OUTSIDE RECORDS SUMMARY | 2025-02-10 05:20 | XMS_ITS ---
Author Organization [facility] Address [address] [place] [address] Care Team Providers Care Space Operations Name Role Phone Lilian Sanchez Primary Care Provider Rose rossi Iron Colvin Unavailable [phone] Allergies No Known Allergies REASON FOR VISIT Ref by Rik Sorto Medications Medication SIG (Take, Route, Frequency, Duration) Notes Start Date End Date Status Allopurinol 300 MG Oral Tablet Allopurinol 300 MG Oral Tablet 09/02/2017 Active Lisinopril 10 MG Oral Tablet Lisinopril 10 MG Oral Tablet 06/21/2017 Active Furosemide 20 MG Oral Tablet Furosemide 20 MG Oral Tablet 05/07/2017 Active Prednisone 20 MG Oral Tablet Prednisone 20 MG Oral Tablet 07/26/2017 Active atorvastatin 10 MG Oral Tablet atorvastatin 10 MG Oral Tablet 02/05/2017 Active Omeprazole 20 MG Enteric Coated Capsule Omeprazole 20 MG Enteric Coated Capsule 06/21/2017 Active Milnacipran hydrochloride 50 MG Oral Tablet Milnacipran hydrochloride 50 MG Oral Tablet 02/05/2017 Active tizanidine 4 MG Oral Tablet tizanidine 4 MG Oral Tablet 02/05/2017 Active pregabalin 150 MG Oral Capsule pregabalin 150 MG Oral Capsule 02/05/2017 Active Clotrimazole 10 MG Lozenge Clotrimazole 10 MG Lozenge 02/05/2017 Active Flonase Active Fluticasone propionate 0.05 MG/ACTUAT Metered Dose Nasal Leola Fluticasone propionate 0.05 MG/ACTUAT Metered Dose Nasal Leola 02/05/2017 Active Vitamin D Active Aldactone 25 MG 1 tablet Orally Active Megestrol Acetate Ac tive Tamsulosin hydrochloride 0.4 MG Oral Capsule Tamsulosin hydrochloride 0.4 MG Oral Capsule 02/05/2017 Active Metoprolol Tartrate 50 MG Oral Tablet Metoprolol Tartrate 50 MG Oral Tablet 04/08/2017 Active amLODIPine Besylate 10 MG 1 tablet Orally Once a day Active Morphine Sulfate 15 MG Oral Tablet Morphine Sulfate 15 MG Oral Tablet 02/05/2017 Active Social History Tobacco Use: Social History Observation Description Date Details (start date - stop date) Never Smoker NA - NA Alcohol Screen (Audit-C) Question Answer Notes Did you have a drink containing alcohol in the p ast year? Yes How often did you have 6 or more drinks on one occasion in the past year? Monthly (2 points) Points 2 Interpretation Negative PHQ-9 Question Answer Notes Little interest or pleasure in doing things Kaylee ral days Feeling down, depressed, or hopeless Not at all Trouble falling or staying asleep, or sleeping t oo much Several days Feeling tired or having little energy Several da ys Poor appetite or overeating Several days Feeling bad about yourself, or that you are a failure, or have let yourself or your family down Not at all Trouble concentrating on thi ngs, such as reading the newspaper or watching television Not at all Moving or speaking so slowly that other people could have noticed. Or the opposite ? being so fidgety or restless that you have been moving around a lot more than usual Not at all Thoughts that you would be b stephanie off , or of hurting yourself in some way Not at all Total Score 4 Interpretation Minimal Depression Tobacco Control (Standard) Question Answer Notes Tobacco use: Nonsmoker Section Notes: taking medications for menta l health reasons Problems Problem Type SNOMED Code ICD Code Onset Dates Problem Status W/U Status Risk Notes Problem History of renal transplant (575567441) History of renal transplant (Z94.0) Active confirmed Problem Abnormal gait (11816861) Abnormality of gait and mobility (R26.9) Active confirmed Problem Cervical spondylosis (486326263) Cervical spondylosis (M47.812) Active confirmed Problem Lumbar radiculopathy (955036586) Lumbar radiculopathy (M54.16) Active confirmed Problem Lumbar spondylosis (405749396) Lumbar spondylosis (M47.816) Active confirmed Problem Thoracic spondylosis without myelopathy (011392053) 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) Active confirmed Vital Signs Height 72 in 02/10/2025 Weight 205 lbs 02/10/2025 BMI 27.8 kg/m2 02/10/2025 Weight-kg 92.99 kg 02/10/2025 Encounters Encounter Location Date Provider Diagnosis [facility] [place] [address] [place] [id number] 02/10/2025 Iron Colvin Chronic pain syndrom e G89.4 ; Abnormality of gait and mobility R26.9 ; Cervical spondylosis M47.812 ; Lumbar radiculopathy M54.16 ; USP (current) use of opiate analgesic Z79.891 ; History of renal transplant Z94.0 ; Lumbar spondylosis M47.816 and Multilevel thoracic spondylosis without myelopathy M47.814 Assessments Encounter Date Diagnosis (ICD Code) Assessment Notes Treatment Notes Treatment Clinical Notes Section Notes 02/10/2025 Chronic pain syndrome (ICD-10 - G89.4) I had a nice visit with the patient today regarding her chronic pain issues. Based on history, PE, as well as older imaging, which I reviewed, the worst of his symptoms appears consistent with spondylosis of the thoracic and cervical spine, as well as spondylosis of the lumbar spine and some left-sided radicular symptoms. Certainly, this is a difficult situation with his prior renal transplant and chronic pain with chronic high dose opiates. I recommended that he try to minimize his usage of the Dilaudid to avoid building tolerance as much as he can. We will see what the new imaging shows and what the surgeon says in the coming weeks. No prescriptions were provided today. We will see him back in 1 month to specifically make sure his prescription lasts a month. 02/10/2025 Abnormality of gait and mobility (ICD-10 - R26.9) 02/10/2025 Cervical spondylosis (ICD-10 - M47.812) 02/10/2025 Lumbar radiculopathy (ICD-10 - M54.16) 02/10/2025 USP (current) use of opiate analgesic (ICD-10 - Z79.891) 02/10/2025 History of renal transplant (ICD-10 - Z94.0) 02/10/2025 Lumbar spondylosis (ICD-10 - M47.816) 02/10/2025 Multilevel thoracic spondylosis without myelopathy (ICD-10 - M47.814) 02/10/2025 Other Nannette Alcala NCMA, am scribing for Dr. Iron Colvin. I, Dr. Iron Colvin, personally performed the services described in this documentation, as scribed by JUAN ANTONIO Underwood, and it is both accurate and complete. Plan Of Treatment Treatment Notes Assessment Notes Chronic pain syndrome I had a nice visit with the patient today regarding her chronic pain issues. Based on history, PE, as well as older imaging, which I reviewed, the worst of his symptoms appears consistent with spondylosis of the thoracic and cervical spine, as well as spondylosis of the lumbar spine and some left-sided radicular symptoms. Certainly, this is a difficult situation with his prior renal transplant and chronic pain with chronic high dose opiates. I recommended that he try to minimize his usage of the Dilaudid to avoid building tolerance as much as he can. We will see what the new imaging shows and what the surgeon says in the coming weeks. No prescriptions were provided today. We will see him back in 1 month to specifically make sure his prescription lasts a month. Other Cari, JUAN ANTONIO Underwood, radha scribing for Dr. Iron Colvin. I, Dr. Iron Colvin, personally performed the services described in this documentation, as scribed by JUAN ANTONIO Underwood, and it is both accurate and complete. Next Appt Details Follow Up: 1 month, Reason: Provider Name:Iron Colvin, 03/10/2025 08:40:00 AM, [address] [place], [phone], Progress Notes * Mark BANDA DDOB:04/1965 (59 yo M)Acc No.[id number]:02/10/2025 Progress Notes Patient: Mark HOLLAND Provider: Chalino Colvin D.O. :1965 A ge:59 Y S ex:Male Date:02/10/2025 Address:[address] [place] [address], [place], [id number] Pcp:EMMA Spencer Subjective: * Chief Complaints: * 1 . Ref by Rik Sorto. * HPI: Nishant flowers Details: Pain Location b ack. Duration 2 003. Onset o cinda work. Frequency of Pain C onstant with intermittent flareups, Constant. Quality s hooting, sharp, numb, tingling, spreading. Severity of pain at its worst 9 /10. Severity of pain at its best 3 /10. Severity of average pain 4 /10. Severity of pain right now 5 /10. Worsening factors s itting, standing, walking, lifting, housework, heat, increased activity, bending, twisting, sexual activity, cold weather, warm weather.? Relieving factors s itting, rest, cold pack, medications.? Associated symptoms n ausea, falling, numbness, tingling, insomnia. M edication Details: Do you have a lock box or safe place for medication away from minors and/or others? Y es. Do you have any leftover pain medication building up at your house? N o. Do you understand that pain medication can be addicting and can cause overdose? Y es. Do you feel you can REDUCE the amount of medication you take today? N o. O pioid Assessment Tools: SOAPP-R (Screener/Opioid Assessment for Patient) 7 -20 : Indicates moderate risk for abuse. Patient will subsequently be monitored by clinic policy at least every two to three months with urine drug screen testing. Pill counts will be performed at every visit. Today's SOAPP-R Score 1 6. Pill Count 8 5 Hydromorphone. Last Urine Drug Screen N one. Today's Rapid Urine Drug Screen N one. [place] Prescription Monitoring Program M [employer] H ydromorphone 4 mg #112 02/03/2025Toarley Banda . T reatment History: Caregivers you have visited Nishant flowers medicine physician, Physical therapist. Test undergone in the past 0 10/2024 Lumbar MRI 2 021 Cervical and Thoracic MRI. Past medication you have taken H ydromorphone 4 mg #112 Carola. Treatments you have had R est, ice, brky-tle-bvxrmal medications, Epidural steroid injection, TENS. Were prior treatments of any help? Y es; injection, TENs.? S TOP-BANG Questionnaire: Do you snore loudly (louder than talking or loud enough to be heard through closed doors)? P atient reports yes. Do you often feel tired, fatigued, or sleepy during the day??Patient reports yes. Has anyone observed you stop breathing during your sleep P atient reports no. Do you have or are you being treated for high blood pressure??Patient reports yes. BMI greater than 35 kg/m2? N o. Age over 50 years old? Y es. Gender: Male Y es. Neck circumference is measured greater than 40cm? N o. Score P atient has scored greater than 3 on STOP BANG, which indicates high risk for HUE. Oxygen N o. CPAP N o. P dayronvider Note: This is a pleasant gentleman coming in today complaining of pain, mainly in his back, as well as his neck. He says he's been under the care of Dr. Srivastava for 18 years before he closed down/ he has previously been on morphine for his chronic pain issues and was switched to Dilaudid when he had a renal transplant. He's been on that for about 4 years, and he is prescribed 4 a day of the 4 mg and says that he doesn't always take that many. He was also doing some trigger point injections with Dr. Srivastava, and he says those did provide some relief. He apparently is having new imaging of his spine completed next week, and then he's going to see a surgeon up in [place] as well. He is still very limited throughout most all of his activities of daily living secondary to the pain. * ROS: G eneral - Multi System: Constitutional R eports, fatigue, poor appetite, difficulty sleeping. E ar, Nose, Mouth, Throat R eports, tinnitus. C ardiovascular R EPORTS, chest pain, shortness of breath. R espiratory R eports, shortness of breath. G astrointestinal R eports, nausea, constipation, diarrhea. M usculoskeletal R eports:back pain, neck pain, joint pain, joint swelling. N eurologic R eports, headaches, weakness, memory troubles. P sychiatric R eports, depression. * Medical History: P pilarlem:Benign hypertension (disorder) , Status :: Active, Problem:Drug therapy finding (finding) , Status :: Active, Problem:Fibromyalgia (disorder) , Status :: Active, Problem:Focal segmental glomerulosclerosis (disorder) , Status :: Active, Problem:Hypoalbuminemia (finding) , Status :: Active, Problem:Iron deficiency anemia (disorder) , Status :: Active, Problem:Microscopic hematuria (disorder) , Status :: Active, Problem:Nephrotic range proteinuria (finding) , Status :: Active, Problem:Obesity (disorder) , Status :: Active, Problem:Osteoarthritis (disorder) , Status :: Active, Problem:Patient immunocompromized (finding) , Status :: Active, Problem:Tobacco user (finding) , Status :: Active, Depression, Hypertension, Arthritis, Hernia, Back trouble, Fibromyalgia, IBS, High Blood Pressure, Heart Disease, Stomach Ulcer, Headache, migraine, Depression, Arthritis, Constipation, Blood thinners, Lost kidney. * Surgical History: k idney transplant . * Hospitalization/Major Diagno stic Procedure: u nknown . * Family History: family history of fibromyaglia, chronic pain. * Social History: T obacco Use: T obacco Control (Standard) T obacco use: N onsmoker D rugs/Alcohol: D rugs H ave you used drugs other than those for medical reasons in the past 12 months? N o Alcohol Screen (Audit-C) D id you have a drink containing alcohol in the past year? Y es H ow often did you have 6 or more drinks on one occasion in the past year? M onthly (2 points) P oints 2 I nterpretation N egative Do you smoke marijuana?: Denies. Do you drink alcohol?: Socially. D epression Screening: P HQ-9 L ittle interest or pleasure in doing things?Several days F eeling down, depressed, or hopeless N ot at all T rouble falling or staying asleep, or sleeping too much S everal days F eeling tired or having little energy S everal days P oor appetite or overeating S everal days F eeling bad about yourself, or that you are a failure, or have let yourself or your family down N ot at all T rouble concentrating on things, such as reading the newspaper or watching television N ot at all M oving or speaking so slowly that other people could have noticed. Or the opposite ? being so fidgety or restless that you have been moving around a lot more than usual N ot at all T houghts that you would be better off , or of hurting yourself in some way N ot at all T otal Score 4 I nterpretation M inimal Depression M iscellaneous: S exual abuse: no. Sexually active: no, painful intercourse. z zMigrated Social History: M igrated Social History: Smoking Status:Ex-smoker (finding). t aking medications for mental health reasons. * Medications: T aking Fluticasone propionate 0.05 MG/ACTUAT Metered Dose Nasal Leola , Notes to Pharmacist: Fluticasone propionate 0.05 MG/ACTUAT Metered Dose Nasal Leola, Taking Omeprazole 20 MG Enteric Coated Capsule , Notes to Pharmacist: Omeprazole 20 MG Enteric Coated Capsule, Taking Milnacipran hydrochloride 50 MG Oral Tablet , Notes to Pharmacist: Milnacipran hydrochloride 50 MG Oral Tablet, Taking tizanidine 4 MG Oral Tablet , Notes to Pharmacist: tizanidine 4 MG Oral Tablet, Taking pregabalin 150 MG Oral Capsule , Notes to Pharmacist: pregabalin 150 MG Oral Capsule, Taking Clotrimazole 10 MG Lozenge , Notes to Pharmacist: Clotrimazole 10 MG Lozenge, Taking Furosemide 20 MG Oral Tablet , Notes to Pharmacist: Furosemide 20 MG Oral Tablet, Taking Prednisone 20 MG Oral Tablet , Notes to Pharmacist: Prednisone 20 MG Oral Tablet, Taking atorvastatin 10 MG Oral Tablet , Notes to Pharmacist: atorvastatin 10 MG Oral Tablet, Taking Lisinopril 10 MG Oral Tablet , Notes to Pharmacist: Lisinopril 10 MG Oral Tablet, Taking Allopurinol 300 MG Oral Tablet , Notes to Pharmacist: Allopurinol 300 MG Oral Tablet, Taking Morphine Sulfate 15 MG Oral Tablet , Notes to Pharmacist: Morphine Sulfate 15 MG Oral Tablet, Taking Tamsulosin hydrochloride 0.4 MG Oral Capsule , Notes to Pharmacist: Tamsulosin hydrochloride 0.4 MG Oral Capsule, Taking Metoprolol Tartrate 50 MG Oral Tablet , Notes to Pharmacist: Metoprolol Tartrate 50 MG Oral Tablet, Taking amLODIPine Besylate 10 MG Tablet 1 tablet Orally Once a day , Taking Flonase , Taking Vitamin D , Taking Aldactone 25 MG Tablet 1 tablet Orally , Taking Megestrol Acetate , Medication List reviewed and reconciled with the patient * Allergies: N .K.D.A. Objective: * Vitals: H t: 72 in, Wt:205lbs, Wt-k.99 kg, BMI:27.8Index. * Examination: G eneral Examination: C onstitutional: Patient appears to be appropriate looking for stated age. Patient is awake, alert and oriented to person, place and time with recent/ remote memory intact. in no acute distress noted. HEENT: Atraumatic, Normocephalic,Pupils grossly normal on inspection. Respiratory: Visual Inspection: breathing equal bilaterally, trachea midline. Cardiovascular: Cardiac rhythm is regular. Gastrointestinal: Abdomen grossly normal. No obvious firmness, tenderness or masses noted. Cervical Spine: Loss of normal lordosis. Generalized tenderness of paraspinals and facet joints with a few trigger points present. ROM is very restricted throughout with pain. + Kemps b/l Thoracic Spine: Generalized paraspinal tenderness and tightness, worst along T11-12 region Lumbar Spine: Inspection of the lumbar spine reveals loss of normal lordosis with no obvious scoliosis or asymmetry noted. Palpation of the lumbar facets reproduced back pain. Range of Motion: Reduced ROM in all directions. Hyperextension at lumbar spine reproduced lower back pain. Bilateral facet loading maneuvers (lateral flexion/extension/bending) reproduced lower back pain. Bilateral lateral rotation also causes some pain. Stooping forward slightly gives some relief. Anterior lumbar flexion causes pain. Pain during lumbar extension was observed. Left lateral flexion causes pain. Right lateral flexion causes pain. Lumbar spine: b/l paraspinal muscle tightness. Joints- Hips/ SI Joint: SI Joint Palpation : negative bilaterally. Neurology - Mental Status: Mood and affect appear to be normal. Neurology - Coordination: P tarah has antalgic gait. Neurology - Straight Leg Raising: Right: 60 degrees and negative. Left: 60 degrees and negative. Neurology - Motor Strength: B/L UE strength 4+/5 Left LE strength - Flexors: 4+/5. Right LE strength - Flexors: 4+/5. Left LE strength - Extensors: 4+/5. Right LE strength - Extensors: 4+/5. Left LE Tone: Normal. Right LE Tone: Normal. Neurology - Deep Tendon Reflexes: Left biceps (DTR): 2. Right biceps (DTR): 2. Left triceps (DTR): 2. Right triceps (DTR): 2. Left brachioradialis (DTR): 2. Right brachioradialis (DTR): 2. Left patellar (DTR): 2. Right patellar (DTR): 2. Left achilles (DTR): 1. Right achilles (DTR): 1 Sensation grossly intact. Assessment: * Assessment: 1. C hronic pain syndrome - G89.4 (Primary) 2 . A bnormality of gait and mobility - R26.9 3 . C ervical spondylosis - M47.812 4 . L umbar radiculopathy - M54.16 5 . L partha term (current) use of opiate analgesic - Z79.891 6 . H istory of renal transplant - Z94.0 7 . L umbar spondylosis - M47.816 8 . M ultilevel thoracic spondylosis without myelopathy - M47.814 Plan: * Treatment: 2. O thers Notes: INannette NCMA, am scribing for Dr. Iron Colvin. I, Dr. Iron Colvin, personally performed the services described in this documentation, as scribed by JUAN ANTONIO Underwood, and it is both accurate and complete. * Follow Up: 1 month Forms: Care Plan: * Problems: * Billing Information: * Visit Code: 63998 Office Visit, New Pt., Level 3. * Procedure Codes: * Electronic signature of Iron Colvin DO on 02/20/2025 at 07:25 AM CDT Sign off status: Pending * Provider: Chalino Colvin D.O. Date: 0 02/10/2025 Generated for Rick morelos/Sheldon/Ashley on: 0 02/20/2025 07:25 AM CDT History and Physical Notes * HPI (History of Present Illness) Category Sub-Category Detail Notes Category Not es Pain Details Pain Location back Duration 2002 Onset over work Frequency of Pain Constant with interm ittent flareups, Constant Quality shooting, sharp, num b, tingling, spreading Severity of pain at its worst 9/10 Severity of pain at its best 3/10 Severity of average pain 4/10 Severity of pain right now 5/10 Worsening factors sitting, standing, w alking, lifting, housework, heat, increased activity, bending, twisting, sexual activity, cold weather, warm weather Relieving factors sitting, rest, cold pack, medications Associated symptoms nausea, falling, num bness, tingling, insomnia Medication Details Do you have a lock b ox or safe place for medication away from minors and/or others? Yes Do you have any leftover pain medication building up at your house? No Do you understand that pain medication c an be addicting and can cause overdose? Yes Do you feel you can REDUCE the amount of medication you take today? No Opioid Assessment Tools Pill Count 85 Hydromorphone Last Urine Drug Screen None Today's Rapid Urine Drug Screen None [place] Prescription Monitoring Program [place] [employer] Hydromorphone 4 mg #112 02/03/2025TompsonUndjose elias Banda SOAPP-R (Screener/Opioid Ass essment for Patient) 7-20 : Indicates moderate risk for abuse . Patient will subsequently be monitored by clinic policy at least every two to three months with urine drug screen testing. Pill counts will be performed at every visit Today's SOAPP-R Score 16 Treatment History Caregivers you have visited Ct in medicine physician, Physical therapist Test undergone in the past 10/2024 Lumba r [id number] Cervical and Thoracic MRI Past medication you have taken Hydromorp bladimir 4 mg #112 [facility] Treatments you have had Rest, ice, over- the-counter medications, Epidural steroid injection, TENS Were prior treatments of any help? Yes; injection, TENs STOP-BANG Questionnaire Do you snore julien dly (louder than talking or loud enough to be heard through closed doors)? Patient reports yes Do you often feel tired, fat igued, or sleepy during the day? Patient reports yes Has anyone observed you stop breathing during your sleep Patient reports no Do you have or are you being treated for high blood pressure? Patient reports yes BMI greater than 35 kg/m2? No Age over 50 years old? Yes Gender: Male Yes Neck circumference is measur ed greater than 40cm? No Score Patient has scored g reater than 3 on STOP BANG, which indicates high risk for HUE Oxygen No CPAP No Examination Category Sub-Category Detail Notes Category Not es General Examination Constitutional: Patient appears to be appropriate looking for stated age. Patient is awake, alert and oriented to person, place and time with recent/ remote memory intact. in no acute distress noted. HEENT: Atraumatic, Normocephalic,Pupils grossly normal on inspection. Respiratory: Visual Inspection: breathing equal bilaterally, trachea midline. Cardiovascular: Cardiac rhythm is regular. Gastrointestinal: Abdomen grossly normal. No obvious firmness, tenderness or masses noted. Cervical Spine: Loss of normal lordosis. Generalized tenderness of paraspinals and facet joints with a few trigger points present. ROM is very restricted throughout with pain. + Kemps b/l Thoracic Spine: Generalized paraspinal tenderness and tightness, worst along T11-12 region Lumbar Spine: Inspection of the lumbar spine reveals loss of normal lordosis with no obvious scoliosis or asymmetry noted. Palpation of the lumbar facets reproduced back pain. Range of Motion: Reduced ROM in all directions. Hyperextension at lumbar spine reproduced lower back pain. Bilateral facet loading maneuvers (lateral flexion/extension/bending) reproduced lower back pain. Bilateral lateral rotation also causes some pain. Stooping forward slightly gives some relief. Anterior lumbar flexion causes pain. Pain during lumbar extension was observed. Left lateral flexion causes pain. Right lateral flexion causes pain. Lumbar spine: b/l paraspinal muscle tightness. Joints- Hips/ SI Joint: SI Joint Palpation : negative bilaterally. Neurology - Mental Status: Mood and affect appear to be normal. Neurology - Coordination: Patient has antalgic gait. Neurology - Straight Leg Raising: Right: 60 degrees and negative. Left: 60 degrees and negative. Neurology - Motor Strength: B/L UE strength 4+/5 Left LE strength - Flexors: 4+/5. Right LE strength - Flexors: 4+/5. Left LE strength - Extensors: 4+/5. Right LE strength - Extensors: 4+/5. Left LE Tone: Normal. Right LE Tone: Normal. Neurology - Deep Tendon Reflexes: Left biceps (DTR): 2. Right biceps (DTR): 2. Left triceps (DTR): 2. Right triceps (DTR): 2. Left brachioradialis (DTR): 2. Right brachioradialis (DTR): 2. Left patellar (DTR): 2. Right patellar (DTR): 2. Left achilles (DTR): 1. Right achilles (DTR): 1 Sensation grossly intact
[2025-02-20] VITALS (7 sets, daily range): BP systolic 79–151; BP diastolic 64–105; PULSE 70–104; RESP 17–20; TEMP 36.4; O2SAT 94–100; BMI 27.8
--- OUTSIDE RECORDS SUMMARY | 2025-02-20 07:25 | XMS_ITS | Encounter Summary ---
Author Organization [facility] Address [address] [place] [address] Care Team Providers Care Eligibility Analyst Name Role Phone Unavailable Primary Care Provider Unavailabl e Encounter Details Date Type Department Care Team (Latest Contact Info) Description 06/16/2004 Outpatient [facility] [address] 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
--- OUTSIDE RECORDS SUMMARY | 2025-02-20 07:25 | XMS_ITS | Encounter Summary ---
Author Organization [facility] Address [address] [place] [address] Care Team Providers Care Rd Manager Name Role Phone Unavailable Primary Care Provider Unavailabl e Encounter Details Date Type Department Care Team (Latest Contact Info) Description 06/11/2005 Outpatient Historical [facility] [address] [facility] [address] [place] [address] Alejandro Guevara MD [address] [facility] [address] [place] [phone] LUMB/LUMBOSAC DISC DEGEN (Primary Dx) Social History Tobacco Use Types Packs/Day Years Used Date Smoking Tobacco: Never Assessed Sex and Gender Information Value Date Recorded Sex Assigned at Not on file Legal Sex Male 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
--- OUTSIDE RECORDS SUMMARY | 2025-02-20 07:25 | XMS_ITS | Encounter Summary ---
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
--- OUTSIDE RECORDS SUMMARY | 2025-02-20 07:25 | XMS_ITS | Clinical Summary ---
Author Organization [facility] Address 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
--- OUTSIDE RECORDS SUMMARY | 2025-02-20 07:25 | XMS_ITS | Encounter Summary ---
Author Organization [facility] Address [address] [place] [address] Care Team Providers Care Shingle Inspector Name Role Phone Unavailable Primary Care Provider Unavailabl e Encounter Details Date Type Department Care Team (Latest Contact Info) Description 2003 Outpatient Historical [facility] General Surgery [address] [address] [address] [place] [phone] [place] [address] [facility] [address] [place] [address] ABDOMINAL PAIN OTHER SPEC SITE (Primary Dx) Social History Tobacco Use Types Packs/Day Years Used Date Smoking Tobacco: Never Assessed Sex and Gender Information Value Date Recorded Sex Assigned at Not on file Legal 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
--- OUTSIDE RECORDS SUMMARY | 2025-02-20 07:25 | XMS_ITS | Encounter Summary ---
Author Organization [facility] Address [address] [place] [address] Care Team Providers Care Electrical Subcontractor Name Role Phone Unavailable Primary Care Provider Unavailabl e Encounter Details Date Type Department Care Team (Late st Contact Info) Description 2004 Outpatient Historical [facility] [address] 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
--- OUTSIDE RECORDS SUMMARY | 2025-02-20 07:25 | XMS_ITS | Encounter Summary ---
Author Organization [facility] Address [address] [place] [address] Care Team Providers Care Voucher Examiner Name Role Phone Unavailable Primary Care Provider Unavailabl e Encounter Details Date Type Department Care Team (Late st Contact Info) Description 03/02/2024 Lab Requisition [facility] Laboratory Services [address] [place] [address] [facility], External Provider [address] [place] [address] Social History Tobacco Use Types Packs/Day Years Used Date Smoking Tobacco: Never Assessed Sex and Gender Information Value Date Recorded Sex Assigned at Not on file Legal Sex Male 12:00 AM SAMPLE COLOR MAKER Gender Identity Not on file Sexual Orientation Not on file documented as of this encounter Plan of Treatment Not on file documented as of this encounter Procedures Procedure Name Priority Date/Time Associated Diagnosis Comments OSMOLALITY, URINE Stat 03/02/2024 10: 55 AM CDT documented in this encounter Results * OSMOLALITY, URINE (03/02/2024 10:55 AM CDT) OSMOLALITY, URINE 337 50 - 1,200 mOsm/kg 03/02/2024 12:20 PM CDT [facility] Urine URINE SPECIMEN OBTAINED BY CLEAN CATCH PROCEDURE / Unknown Collection / Unknown 03/02/2024 10:55 AM CDT 03/02/2024 11:57 AM CDT Narrative [facility] - 03/02/2024 12:20 PM CDT Reference range: 50-1200 mOsm/kg H2O, depending on fluid intake. us External Provider [facility] URINE ORDERABLES Final Res ult [facility] # [id number] [facility] [address] documented in this encounter Visit Diagnoses Not on filedocumented in this encounter
--- OUTSIDE RECORDS SUMMARY | 2025-02-20 07:25 | XMS_ITS | Encounter Summary ---
Author Organization [facility] Address [address] [place] [address] Care Team Providers Care Retarder Operator Name Role Phone Unavailable Primary Care Provider Unavailabl e Encounter Details Date Type Department Care Team (Latest Contact Info) Description 06/11/2005 Outpatient Historical [place] [facility] [address] 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
--- OUTSIDE RECORDS SUMMARY | 2025-02-20 07:25 | XMS_ITS | Encounter Summary ---
Author Organization [facility] Address [address] [place] [address] Care Team Providers Care Numerical Control Machine Tool Operator Name Role Phone Unavailable Primary Care Provider Unavailabl e Encounter Details Date Type Department Care Team (Late st Contact Info) Description 2004 Outpatient Historical [facility] [address] [address] [place] [address] [facility] [address] [place], [place] [phone] JOINT PAIN-MULT JTS (Primary Dx) Social History Tobacco Use Types Packs/Day Years Used Date Smoking Tobacco: Never Assessed Sex and Gender Information Value Date Recorded Sex Assigned at Not on file Legal Sex Male 3: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
--- OUTSIDE RECORDS SUMMARY | 2025-02-20 07:25 | XMS_ITS | Encounter Summary ---
Author Organization [facility] Address [address] [place] [address] Care Team Providers Care Stitcher Set Up Operator Automatic Name Role Phone Unavailable Primary Care Provider Unavailabl e Encounter Details Date Type Department Care Team (Latest Contact Info) Description 06/02/2004 Outpatient Historical [facility] [address] 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
--- OUTSIDE RECORDS SUMMARY | 2025-02-20 07:25 | XMS_ITS | Encounter Summary ---
Author Organization [facility] Address [address] [place] [address] Care Team Providers Care Etcher Photoengraving Name Role Phone Unavailable Primary Care Provider Unavailabl e Encounter Details Date Type Department Care Team (Late st Contact Info) Description 03/02/2024 Lab Requisition [facility] Laboratory Services [address] [place] [phone] [facility], External Provider [address] [place] [address] Social History Tobacco Use Types Packs/Day Years Used Date Smoking Tobacco: Never Assessed Sex and Gender Information Value Date Recorded Sex Assigned at Not on file Legal Sex Male 12:00 AM COMMUNICATIONS EQUIPMENT SUPERVISOR Gender Identity Not on file Sexual Orientation Not on file documented as of this encounter Plan of Treatment Not on file documented as of this encounter Procedures Procedure Name Priority Date/Time Associated Diagnosis Comments EXTRA TUBE (GREEN) Routine 03/02/2024 12:02 PM CDT documented in this encounter Results * EXTRA TUBE (GREEN) (03/02/2024 12:02 PM CDT) Blood Collection / Unknown 03/02/2024 12:02 PM CDT 03/02/2024 2:21 PM CDT External Provider [facility] CHEMISTRY ORDERABLES Final Result [facility] CLIA # [id number] [address] [place], [place] [address] documented in this encounter Visit Diagnoses Not on filedocumented in this encounter
--- OUTSIDE RECORDS SUMMARY | 2025-02-20 07:25 | XMS_ITS | Encounter Summary ---
Author Organization [facility] Address [address] [place] [address] Care Team Providers Care Heading Maker Name Role Phone Unavailable Primary Care Provider Unavailabl e Encounter Details Date Type Department Care Team (Latest Contact Info) Description 06/07/2004 Outpatient Historical [facility] [address] [place] [address] Alejandro Guevara MD [address] [phone] JOINT DIS NOS-SHLDER (Primary Dx) Social History Tobacco Use Types Packs/Day Years Used Date Smoking Tobacco: Never Assessed Sex and Gender Information Value Date Recorded Sex Assigned at Not on file Legal Sex Male 3:00 AM RUN LEAD Gender Identity Not on file Sexual Orientation Not on file documented as of this encounter Plan of Treatment Not on file documented as of this encounter Visit Diagnoses Diagnosis Unspecified disorder of shoulder joint- Primary documented in this encounter
--- OUTSIDE RECORDS SUMMARY | 2025-02-20 07:25 | XMS_ITS | Encounter Summary ---
Author Organization [facility] Address [address] [place] [address] Care Team Providers Care Ferry Boat Captain Name Role Phone Unavailable Primary Care Provider Unavailabl e Encounter Details Date Type Department Care Team (Latest Contact Info) Description 06/02/[address] [facility] [address] [place] [address] [facility] [address] [place] [address] Alejandro Guevara MD [address] [facility] [address] [place] [phone] JOINT PAIN-MULT JTS (Primary Dx) Social History Tobacco Use Types Packs/Day Years Used Date Smoking Tobacco: Never Assessed Sex and Gender Information Value Date Recorded Sex Assigned at Not on file Legal Sex Male 3:00 AM BIOGEOGRAPHER Gender Identity Not on file Sexual Orientation Not on file documented as of this encounter Plan of Treatment Not on file documented as of this encounter Visit Diagnoses Diagnosis Pain in joint, multiple sites- Primary documented in this encounter
--- OUTSIDE RECORDS SUMMARY | 2025-02-20 07:25 | XMS_ITS | Patient Health Record ---
Author Organization [facility] Address [address] [place] [address] Care Team Providers Care Inside Account Executive Name Role Phone Lilian Sanchez Primary Care Provider Unavail able Iron Colvin Unavailable [phone] Allergies No Known Allergies Reason For Referral Reason chronic low back abril n Diagnosis 1 Chronic pain syndrom e (G89.4) Referring Provider First Name Rik Referring Provider Last Name Macario Referring Provider Speciality Family Med icine Referred Organization [facility] Home Referred Provider Iron Colvin Referred Address [address] [facility],[address], Referred Provider Specialty Intervention al Pain Medicine General Notes Joanna Ortiz 02:31:59 PM >atc pt, no answer, lvm to call clinicDiana Twyla A 12/24/2024 02:38:59 PM >mailed npp, scheduled pt Referral Priority Routine Medications Medication SIG (Take, Route, Frequency, Duration) Notes Start Date End Date Status Omeprazole 20 MG Enteric Coated Capsule Omeprazole 20 MG Enteric Coated Capsule 06/21/2017 Active Tamsulosin hydrochloride 0.4 MG Oral Capsule Tamsulosin hydrochloride 0.4 MG Oral Capsule 02/05/2017 Active Milnacipran hydrochloride 50 MG Oral Tablet Milnacipran hydrochloride 50 MG Oral Tablet 02/05/2017 Active Metoprolol Tartrate 50 MG Oral Tablet Metoprolol Tartrate 50 MG Oral Tablet 04/08/2017 Active tizanidine 4 MG Oral Tablet tizanidine 4 MG Oral Tablet 02/05/2017 Active amLODIPine Besylate 10 MG 1 tablet Orally Once a day Active pregabalin 150 MG Oral Capsule pregabalin 150 MG Oral Capsule 02/05/2017 Active Flonase Active Allopurinol 300 MG Oral Tablet Allopurinol 300 MG Oral Tablet 09/02/2017 Active Fluticasone propionate 0.05 MG/ACTUAT Metered Dose Nasal [place] Fluticasone propionate 0.05 MG/ACTUAT Metered Dose Nasal [place] 02/05/2017 Active Morphine Sulfate 15 MG Oral Tablet Morphine Sulfate 15 MG Oral Tablet 02/05/2017 Active Lisinopril 10 MG Oral Tablet Lisinopril 10 MG Oral Tablet 06/21/2017 Active Clotrimazole 10 MG Lozenge Clotrimazole 10 MG Lozenge 02/05/2017 Active Vitamin D Active Furosemide 20 MG Oral Tablet Furosemide 20 MG Oral Tablet 05/07/2017 Active Aldactone 25 MG 1 tablet Orally Active Prednisone 20 MG Oral Tablet Prednisone 20 MG Oral Tablet 07/26/2017 Active Megestrol Acetate Ac tive atorvastatin 10 MG Oral Tablet atorvastatin 10 MG Oral Tablet 02/05/2017 Active Immunizations Vaccine Route Administration Date Status Comme nts Influenza (whole), CPT 08669 Inactive Unknown 07/10/2017 Administered Social History Tobacco Use: Social History Observation [...] Problem Status W/U Status Risk Notes Problem [id number] Chronic pain syndrome (G89.4) Active confirmed Problem 72603119 Cervicalgia (M54.2) Active confirmed Problem Lumbar radiculopathy (602049434) Lumbar radiculopathy (M54.16) Active confirmed Problem Lumbar spondylosis (587734284) Lumbar spondylosis (M47.816) Active confirmed Problem Cervical spondylosis (497145400) Cervical spondylosis (M47.812) Active confirmed Problem Abnormal gait (99290925) Abnormality of gait and mobility (R26.9) Active confirmed Problem History of renal transplant (234743219) History of renal transplant (Z94.0) Active confirmed Problem 22313840 Degeneration, intervertebral disc, 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) Active confirmed Problem Thoracic spondylosis without myelopathy (773293892) 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) Active confirmed Vital Signs Weight-kg 92.99 kg 02/10/2025 Height 72 in 02/10/2025 Weight 205 lbs 02/10/2025 BMI 27.8 kg/m2 02/10/2025 Encounters Encounter Location Date Provider Diagnosis [facility] [address] [address] 02/10/2025 Iron Colvin Chronic pain syndrom e G89.4 ; Abnormality of gait and mobility R26.9 ; Cervical spondylosis M47.812 ; Lumbar radiculopathy M54.16 ; termite exterminator (current) use of opiate analgesic Z79.891 ; [...] 02/10/2025 Lumbar radiculopathy (ICD-10 - M54.16) 02/10/2025 termite exterminator (current) use of opiate analgesic (ICD-10 - Z79.891) 02/10/2025 History of renal transplant (ICD-10 - Z94.0) 02/10/2025 Lumbar spondylosis (ICD-10 - M47.816) 02/10/2025 Multilevel thoracic spondylosis without myelopathy (ICD-10 - M47.814) 02/10/2025 Other I, JUAN ANTONIO Underwood, am scribing for Dr. Iron Colvin. I, Dr. Iron Colvin, personally performed the services described in this documentation, as scribed by JUAN ANTONIO Underwood, and it is both accurate and complete. Plan Of Treatment Next Appt Details Provider Name:Iron Colvin, 03/10/2025 08:40:00 AM, [address] [place], [address], Insurance Providers Payer Name Payer Address Payer Phone Subscriber Number Group Number Insured Name Patient Relationship to Insured Coverage Start Date Coverage End Date [employer] [place] [address] [place] [address] [id number] Mark Mccabe Self - patient is the insured [employer] Commercial - Out of Network [address] [address] [place] [address] [id number] Mark Mccabe Self - patient is the insured [facility] [address] [place] [phone] [id number] Mark Mccabe Self - patient is the insured Medical (General) History Medical History History ICD Code Problem:Benign hypertension (disorder) , Status :: Active Problem:Drug therapy finding (finding) , Status :: Active Problem:Fibromyalgia (disorder) , Status :: Active 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) , Status :: Active Problem:Hypoalbuminemia (finding) , Stat us :: Active Problem:Iron deficiency anemia (disorder ) , Status :: Active Problem:Microscopic hematuria (disorder) , Status :: Active Problem:Nephrotic range proteinuria (fin ding) , Status :: Active Problem:Obesity (disorder) , Status :: A ctive Problem:Osteoarthritis (disorder) , Stat us :: Active Problem:Patient immunocompromized (findi ng) , Status :: Active Problem:Tobacco user (finding) , Status :: Active depression hypertension arthritis hernia back trouble fibromyalgia IBS High Blood Pressure Heart Disease Stomach Ulcer Headache, migraine Depression Arthritis constipation blood thinners lost kidney Surgical History Surgery Date(Month/Year) kidney transplant Hospitalization History Reason Date(Month/Year) unknown
--- OUTSIDE RECORDS SUMMARY | 2025-02-20 07:25 | XMS_ITS | Clinical Summary ---
Author Organization [facility] Address [address] [facility] Attn: [place] [address] Care Team Providers Care Light Fixture Servicer Name Role Phone Unavailable Primary Care Provider Unavailabl e Encounters Date Type Department Care Team Description 12/03/2024 Abstract [facility] Neurosurgery [address] [place] [address] Gus Tsang MD from Last 3 Months Immunizations Immunization Administration Dates Next Due (TDVAX)(7 YRS UP) TETANUS AN D DIPHTHERIA TOXOIDS, ADSORBED (2 LF OF TETANUS TOXOID AND 2 LF OF DIPHTHERIA TOXOID), 0.5ML (PF), IM 06/07/2005,01/22/2004 Social History Tobacco Use Types Packs/Day Years Used Date Smoking Tobacco: Never Assessed Sex and Gender Information Value Date Recorded Sex Assigned at Not on file Legal Sex Male 12: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 Gender Identity Not on file Sexual Orientation Not on file Plan of Treatment Health Maintenance Due Date Last Done Comments Pre-Diabetes and Diabetes Screening 1966 HEPATITIS B VACCINES (1 of 3 - 19+ 3-dose series) 1985 FIT-DNA Q 3 years 2011 FIT/FOBT Q 1 year 2011 INFLUENZA VACCINE (#1) 2024 , 06/29/2022, 06/20/2020, Additional history exists COVID-19 Vaccine (2023-2 5 season) 2024 07/12/2022, 02/07/2022, 09/08/2021, Additional history exists Flex Sig/CT Colonography Q 5 years 01/27/20292023 DTAP/TDAP/TD VACCINES (2 - T d or Tdap) 01/25/2033 01/25/2023, 05/23/2022, 06/07/2005, Additional history exists COLORECTAL SCREENING 01/27/2034 01/28/2024 Colorectal Cancer Screening 01/27/2034 ZOSTER VACCINE Completed 07/26/2023, 01/18/2023
--- OUTSIDE RECORDS SUMMARY | 2025-02-20 07:25 | XMS_ITS | Encounter Summary ---
Author Organization [facility] Address [address] [place] [address] Care Team Providers Care Dental Technologist Name Role Phone Unavailable Primary Care Provider Unavailabl e Encounter Details Date Type Department Care Team (Latest Contact Info) Description 06/16/2004 Outpatient Historical [facility] [address] [facility] [address] [place] [address] Alejandro Guevara MD [address] [facility] [address] [place] [phone] CERVICALGIA (Primary Dx) Social History Tobacco Use Types Packs/Day Years Used Date Smoking Tobacco: Never Assessed Sex and Gender Information Value Date Recorded Sex Assigned at Not on file Legal Sex Male 3:00 AM FRAME W[employer] Gender Identity Not on file Sexual Orientation Not on file documented as of this encounter Plan of Treatment Not on file documented as of this encounter Visit Diagnoses Diagnosis Cervicalgia- Primary documented in this encounter
--- OUTSIDE RECORDS SUMMARY | 2025-02-20 07:25 | XMS_ITS | Encounter Summary ---
Author Organization [facility] Address [address] [place] [address] Care Team Providers Care Licensed Weigher Name Role Phone Unavailable Primary Care Provider Unavailabl e Encounter Details Date Type Department Care Team (Late st Contact Info) Description 03/03/2024 Lab Requisition [facility] [address] [place] [address] [facility], External Provider [address] [place] [address] Social History Tobacco Use Types Packs/Day Years Used Date Smoking Tobacco: Never Assessed Sex and Gender Information Value Date Recorded Sex Assigned at Not on file Legal Sex Male 12:00 AM [employer]IV[employer] Gender Identity Not on file Sexual Orientation Not on file documented as of this encounter Plan of Treatment Not on file documented as of this encounter Procedures Procedure Name Priority Date/Time Associated Diagnosis Comments OSMOLALITY Stat 03/03/2024 1:30 AM CDT documented in this encounter Results * OSMOLALITY (03/03/2024 1:30 AM CDT) OSMOLALITY 281 275 - 295 mOsm/kg 03/03/2024 3:43 AM CDT [facility] [employer] Blood Collection / Unknown 03/03/2024 1:30 AM CDT 03/03/2024 3:20 AM CDT us External Provider [facility] CHEMISTRY ORDERABLES Final Result [facility] [employer] CLIA # [id number] [address] [address] documented in this encounter Visit Diagnoses Not on filedocumented in this encounter
--- OUTSIDE RECORDS SUMMARY | 2025-02-20 07:25 | XMS_ITS | Encounter Summary ---
Author Organization [facility] Address [address] [place] [address] Care Team Providers Care Director Human Services Name Role Phone Unavailable Primary Care Provider Unavailabl e Encounter Details Date Type Department Care Team (Latest Contact Info) Description 06/02/2004 Outpatient Historical [facility] Alejandro Guevara MD [address] [phone] ARTHROPATHY NOS-UNSPEC (Primary Dx) Social History Tobacco Use Types Packs/Day Years Used Date Smoking Tobacco: Never Assessed Sex and Gender Information Value Date Recorded Sex Assigned at Not on file 

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
--- NOTE | 2025-02-20 07:29 | CTR_ITS ---
PROCEDURE INFORMATION: Exam: CT Abdomen And Pelvis Without Contrast Exam date and time: 02/20/2025 7:40 AM Age: 59 years old Clinical indication: Abdominal pain; Localized; Lower; Prior surgery; Surgery date: Post-operative (0-2 days); Surgery type: Kidney biopsy; Additional info: Hypotensive, biopsy kidney 2 days, free fluid? History of melanoma TECHNIQUE: Imaging protocol: Computed tomography of the abdomen and pelvis without contrast. Radiation optimization: All CT scans at this facility use at least one of these dose optimization techniques: automated exposure control; mA and/or kV adjustment per patient size (includes targeted exams where dose is matched to clinical indication); or iterative reconstruction. COMPARISON: PT PET WB melanoma INITIAL [id number] 07/31/2024 3:28 PM RADIATION DOSE METRICS: Total DLP (mGy-cm): 943.73 FINDINGS: Lungs: There is a small nodule in the posterior left lower lobe measuring 4 mm which has increased minimally compared with the prior study . At that time it measured 3 mm. Liver: The liver is unremarkable. Gallbladder and biliary ducts: Patient has undergone previous cholecystectomy. There is no biliary ductal dilatation. Pancreas: There is no pancreatic mass or ductal dilatation. Spleen: The spleen is unremarkable. Adrenal glands: The adrenal glands are unremarkable. Kidneys and ureters: The [place] kidneys are atrophic. There is a cystic lesion emanating from the posterior left kidney as before measuring 1.3 x 1.2 cm. This lesion does not need follow-up. There is no renal or ureteral calculus and there is no hydronephrosis in the [place] kidneys. There is a transplant kidney in the right renal pelvis. According to history, patient has undergone recent percutaneous biopsy of this kidney. There is heterogeneous collection associated with the lateral and inferior aspect of the kidney most consistent with ahematoma. I would favor that it is a parenchymal hematoma rather than a subcapsular hematoma. It is difficult to measure separate from the right kidney but is estimated to measure 6.6 x 5.7 x 9.7 cm. There is compression and deviation of the remainder of the kidney. In addition to this hematoma, there appears to be fairly large collection of blood products within the central and lower pelvis Stomach and bowel: The bowel-gas pattern is not obstructed. There may be wall thickening involving the colon versus underdistention Appendix: The appendix is not identified Intraperitoneal space: Unremarkable. No free air. No significant fluid collection. Vasculature: Unremarkable. No abdominal aortic aneurysm. Lymph nodes: Unremarkable. No enlarged lymph nodes. Urinary bladder: The bladder appears decompressed Reproductive: The prostate gland is not enlarged. Bones/joints: There are degenerative changes in the spine hips and sacroiliac joints. As before, there is evidence for avascular necrosis in both femoral heads. Soft tissues: There is bilateral gynecomastia. CT/CT abdomen pelvis wo con [id number] IMPRESSION: 1. By history, patient has undergone recent biopsy renal transplant located in the right pelvis. There is a large hematoma associated with the transplant kidney. In addition, there are blood products in the central and lower pelvis extending from the lower aspect of the renal hematoma 2. [place] kidneys are atrophic. There is a cyst emanating from the posterior left kidney. 3. Previous cholecystectomy. Negative for biliary ductal dilatation. 4. Interval slight increase in size of a left lower lobe pulmonary nodule 5. Avascular necrosis both femoral heads as before Preliminary report given to Dr. Aguilar on 02/20/2025 at 8:14 a.m. central time
--- NOTE | 2025-02-20 07:32 | W.ED.ABDPA2 ---
HPI - Abdominal Pain General: Chief Complaint: Abdominal Pain Stated Complaint: abd pain Time Seen by Provider: 02/20/25 07:16 History of Present Illness: 59-year-old male presents emergency department by EMS. He reports a history of renal transplant 3 years ago. He went to [facility] for routine labs this week. His labs were not looking favorable. They did a direct admission. They did a biopsy of his kidney which is in the right lower quadrant on , 2 days ago. Last night he started getting abdominal pain. This morning around 5 AM it started to become severe. Patient was transported by EMS in stable condition initially but his blood pressure is trending down during transport. On arrival his blood pressure is 79/64 and he is pale with some diaphoresis on his forehead. He reports the pain is becoming severe. His heart rate is elevated. His respiratory rate is elevated. Patient does not appear well. Bedside ultrasound reveals what I believed to be some free fluid. Stat to IV, fluid resuscitation, prepare for blood transfusion, stat CT scan of the abdomen and pelvis without contrast. Notification of on-call surgeon. Patient is on Eliquis--last dose yesterday 833 am. Related Data Home Medications ?Medication ?Instructions ?Recorded ?Confirmed cholecalciferol (vitamin D3) 25 25 mcg PO QAM 01/14/20 08/06/24 mcg (1,000 unit) capsule fluticasone propionate 50 2 spray intranasal DAILY PRN 01/14/20 08/06/24 mcg/actuation nasal Allergy Symptoms spray,suspension tamsulosin 0.4 mg capsule 0.4 mg PO QAM 01/14/20 08/06/24 atorvastatin 10 mg tablet 10 mg PO BEDTIME 02/13/21 08/06/24 famotidine 20 mg tablet 20 mg PO BID 07/11/21 08/06/24 hydromorphone 4 mg tablet 4 mg PO Q4H PRN Pain 07/11/21 08/06/24 diphenoxylate-atropine 2.5 2 tab PO QID PRN Diarrhea 01/16/22 08/06/24 mg-0.025 mg tablet prednisone 5 mg tablet 5 mg PO QAM 01/16/22 08/06/24 acetaminophen 325 mg capsule 650 mg PO Q4H PRN Pain 03/20/22 02/20/25 loperamide 2 mg capsule 2 mg PO QID PRN Diarrhea 03/20/22 08/06/24 artificial tears(hypromellose) 0.3 1 drp ophthalmic (eye) DAILY PRN 03/13/23 08/06/24 % eye drops Itching losartan 50 mg tablet 25 mg PO DAILY 03/13/23 08/06/24 patiromer calcium sorbitex 16.8 See Rx Instructions .Route 03/13/23 08/06/24 gram oral powder packet (Veltassa) .COMPLEX PRN Hyperkalemia empagliflozin 25 mg tablet 25 mg PO QAM 06/06/23 08/06/24 (Jardiance) cyanocobalamin (vitamin B-12) 1,000 mcg PO QAM 08/08/23 08/06/24 1,000 mcg capsule ferrous sulfate 325 mg (65 mg 325 mg PO QAM 08/08/23 08/06/24 iron) tablet filgrastim 480 mcg/1.6 mL 480 mcg SUBCUT DAILY PRN UNKNOWN 08/08/23 08/06/24 injection solution finasteride 5 mg tablet 10 mg PO QAM 12/11/23 08/06/24 ipratropium bromide 42 mcg (0.06 2 spray intranasal QID ALLERGIES 12/11/23 08/06/24 %) nasal spray mycophenolate sodium 360 mg 360 mg PO BID 12/11/23 08/06/24 tablet,delayed release apixaban 5 mg tablet (Eliquis) 5 mg PO BID 07/15/24 08/06/24 calcium polycarbophil 625 mg 625 mg PO QAM 07/15/24 08/06/24 tablet (FiberCon) cholestyramine-aspartame 4 gram See Rx Instructions .Route .COMPLEX 07/15/24 08/06/24 oral powder for susp in a packet duloxetine 60 mg capsule,delayed 60 mg PO QAM 07/15/24 08/06/24 release gabapentin 300 mg capsule 300 mg PO QAM 07/15/24 08/06/24 megestrol 400 mg/10 mL (40 mg/mL) 400 mg PO QAM 07/15/24 08/06/24 oral suspension metoclopramide HCl 5 mg tablet 5 mg PO TID 07/15/24 08/06/24 mupirocin 2 % topical ointment 1 applic topical BID PRN wound on 07/15/24 08/06/24 right arm sodium bicarbonate 650 mg tablet 1,300 mg PO BID 07/15/24 08/06/24 tacrolimus 0.75 mg tablet,extended 1.5 mg PO QAM 07/15/24 08/06/24 release 24 hr (Envarsus XR) tizanidine 4 mg tablet 2 - 4 mg PO BEDTIME PRN Spasms 07/15/24 08/06/24 Previous Rx's ?Medication ?Instructions ?Recorded pantoprazole 40 mg tablet,delayed 40 mg PO BID 6 weeks #84 tabs 04/12/23 release (Protonix) aspirin 81 mg tablet,delayed 81 mg PO DAILY #90 tabs 07/16/24 release magnesium L-threonate 48 mg 48 mg PO DAILY #90 caps 07/16/24 magnesium (667 mg) capsule metoprolol tartrate 25 mg tablet 25 mg PO DAILY #15 tabs 08/05/24 metoprolol succinate 25 mg 50 mg (2 x 25 mg) PO QAM #30 tabs 08/07/24 tablet,extended release 24 hr Allergies Allergy/AdvReac Type Severity Reaction Status Date / Time No Known Allergies Allergy Verified 08/06/24 09:03 Review of Systems Narrative: Abdominal pain, testicular pain back pain, nausea, diaphoresis, pallor. Denies other symptoms at this time. 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 Carpal tunnel syndrome, bilateral upper limbs Surgical History Hx of colonoscopy less than 1 year, no polyps History of esophagogastroduodenoscopy (EGD) less than 1 year History of bilateral carpal tunnel release History of right breast biopsy for benign disease History of thoracotomy with chest tube, for pneumonia History of kidney transplant (09/2021) History of cholecystectomy History of umbilical hernia repair History of arthroscopic knee surgery x 3 History of arthroscopy of right shoulder Family History Father CAD (coronary artery disease) Chronic kidney disease (CKD) Mother Arthritis Other Diabetes Hyperlipidemia Hypertension Denies family history of Clotting disorder Dementia Psychiatric illness Suicide Anesthesia complication Bleeding disorder Lung disease Cancer Stroke Social History Smoking and tobacco/nicotine status: former use of tobacco/nicotine Alcohol intake: never Substance/Drug Use: never Household members: spouse Marital status: Current occupational status: disabled Physical Exam Narrative: EXAM NARRATIVE: Awake, alert, distressed, tachypneic, tachycardic, abdominal guarding, abdominal rebound, abdominal tenderness over the right lower quadrant and diffusely. Diaphoretic. Pale. Const: COMMON NORMALS: no limitations, alert and well nourished EXAM LIMITATIONS: no altered mental status HENMT: COMMON NORMALS: normocephalic, atraumatic and external ears normal HEAD & SCALP: normocephalic and atraumatic EXTERNAL EAR: Yes external ears normal MOUTH: no muffled voice Neck/C-Spine: GENERAL: Yes normal visual inspection and Yes trachea midline Extremity: COMMON NORMALS: normal to inspection Neuro: COMMON NORMALS: moves all extremities, no focal motor deficits and no sensory deficits noted SENSORIUM/ORIENTATION: Yes alert SPEECH: speech normal Psych: COMMON NORMALS: mental status grossly normal, Normal thought process present, cooperative, normal affect and speech normal SPEECH: Yes normal speech THOUGHT PROCESS: Normal thought process present Course Vital Signs: Vital signs: Vital Signs Temperature 97.6 F 02/20/25 07:15 Pulse Rate 79 02/20/25 08:14 Respiratory Rate 18 02/20/25 08:14 Blood Pressure 116/69 02/20/25 08:14 Pulse Oximetry 100 02/20/25 08:14 Oxygen Delivery Me thod Room Air 02/20/25 08:14 MDM - Abdominal Pain Medical Decision Making Patient presents in critical condition. He is pale, diaphoretic, tachycardic, tachypneic, hypotensive. He has significant pain over his right lower quadrant and lower abdominal area. He has guarding and has peritonitis. Bedside ultrasound reveals concern for stripe of free fluid around his right kidney. 2IVs, NS bolus for hypotension until blood products arrive. STAT CT performed--hematoma in pelvis, adjacent to transplanted kidney. I have ordered emergency release blood products--transfuse 2 units, prepare 4 units. 2 pack platelets, [address] F[address] Leon, surgeon cosmetics and toiletries salesperson. He states he is a transplant surgeon but does not have the tools available at this facility to help the patient even in an emergency situation. He recommends transfer even if the patient is unstable. Closest appropriate facility is [facility]. Patient gets all of his non transplant care at [facility]. I have spoken with dry transfer worker [id number] and requested time critical emergent transfer to ER. [facility] is being notified. [id number]--Discussed with Dr Gallardo in the ER at [facility]. He will accept on the condition I speak to the cosmetics and toiletries salesperson surgeon there and they are able to care for the patient. Update I performed coordination of care with Radha bautista, surgeon at [facility], Dr. Gallardo, emergency physician in the ER at [facility], and Dr. Fontana coordinated with IR. Patient has been officially accepted at 0818 am. VS 0822 BP 121/74 HR 76 RR 23 spo2 100% Lab Data 02/20/25 07:24 02/20/25 07:24 Labs/Radiology: Radiology Impressions Abdomen/Pelvis CT 02/20/25 07:29 IMPRESSION: 1. By history, patient has undergone recent biopsy renal transplant located in the right pelvis. There is a large hematoma associated with the transplant kidney. In addition, there are blood products in the central and lower pelvis extending from the lower aspect of the renal hematoma 2. [place] kidneys are atrophic. There is a cyst emanating from the posterior left kidney. 3. Previous cholecystectomy. Negative for biliary ductal dilatation. 4. Interval slight increase in size of a left lower lobe pulmonary nodule 5. Avascular necrosis both femoral heads as before Preliminary report given to Dr. Aguilar on 02/20/2025 at 8:14 a.m. central time Laboratory Results WBC 13.53 10^3/uL (3.29-11.43) H 02/20/25 07:24 RBC 3.22 10^6/uL (3.85-5.65) L 02/20/25 07:24 Hgb 8.90 g/dL (11.27-16.99) L 02/20/25 07:24 Hct 29.7 % (37-53) L 02/20/25 07:24 MCV 92.2 fl (82-101) 02/20/25 07:24 MCH 27.6 pg (27-33) 02/20/25 07:24 MCHC 30.0 g/dL (30-55) 02/20/25 07:24 RDW 15.4 % (12.1-15.1) H 02/20/25 07:24 Plt Count 220 10^3/cmm (157-399) 02/20/25 07:24 MPV 10.3 fL (7.4-10.4) 02/20/25 07:24 Neut % (Auto) 52.7 % 02/20/25 07:24 Lymph % (Auto) 33.9 % 02/20/25 07:24 [place] % (Auto) 10.9 % 02/20/25 07:24 Eos % (Auto) 0.9 % 02/20/25 07:24 Baso % (Auto) 0.3 % 02/20/25 07:24 Neut # (Auto) 7.13 10^3/uL (1.8-7.7) 02/20/25 07:24 Lymph # (Auto) 4.6 10^3/uL (0.8-4.8) 02/20/25 07:24 [place] # (Auto) 1.5 10^3/uL (0.2-0.9) H 02/20/25 07:24 Eos # (Auto) 0.1 10^3/uL (0.0-0.8) 02/20/25 07:24 Baso # (Auto) 0.0 10^3/uL (0.0-0.1) 02/20/25 07:24 Nucleated RBC % (auto) 0.1 % 02/20/25 07:24 Nucleated RBCs # 0.0 /100WBC 02/20/25 07:24 Sodium 138 mmol/L (136-145) 02/20/25 07:24 Chloride 105 mmol/L (98-107) 02/20/25 07:24 Calcium 9.5 mg/dL (8.5-10.5) 02/20/25 07:24 Phosphorus 3.3 mg/dL (2.5-4.5) 02/20/25 07:24 Total Bilirubin 0.4 mg/dL (0.15-1.2) 02/20/25 07:24 AST 12 U/L (0-40) 02/20/25 07:24 ALT < 5 U/L (0-41) 02/20/25 07:24 Alkaline Phosphatase 57 U/L (40-130) 02/20/25 07:24 Albumin 4.3 g/dL (3.5-5.2) 02/20/25 07:24 Blood Type O Positive 02/20/25 07:27 Rho(D) Type Rh positive 02/20/25 07:27 Crossmatch See Detail 02/20/25 07:27 All radiology interpretation(s) finalized by discharge Critical Care Time Critical Care Time: Critical Care Time: Yes Total Critical Care Time: 90 Attestation: This case had a high probability of a clinically significant, sudden, or life threatening deterioration of this patient's condition which required my full and direct attention, intervention and personal management. Discharge Plan Discharge Patient Disposition: Xfer Short-Term Hosp Clinical Impression: Hemorrhage intraabdominal Condition: Critical Referrals: Rik Sorto MD [Primary Care Provider, [facility]] Print Language: Bolivian Coding Level of Care Code ED Promotions Team Leader for Audrey Almanza
[2025-02-20] MEDS: sodium chloride 0.9% 2,328 ML 2328 ML IV (07:35)
[2025-02-20 07:45] LABS: Basophils % 0.3 %; Eosinophils # 0.1 10^3/uL (0.0-0.8); Eosinophils % 0.9 %; Hematocrit 29.7 % (37-53); Lymphocytes # 4.6 10^3/uL (0.8-4.8); Lymphocytes % 33.9 %; Mean Corpuscular Hemoglobin 27.6 pg (27-33); Mean Corpuscular Volume 92.2 fl (82-101); Mean Platelet Volume 10.3 fL (7.4-10.4); Monocytes # 1.5 10^3/uL (0.2-0.9); Monocytes % 10.9 %; Neutrophils # 7.13 10^3/uL (1.8-7.7); Neutrophils % 52.7 %; Nucleated Red Blood Cells % 0.1 %; Platelet Count 220 10^3/cmm (157-399); Red Blood Count 3.22 10^6/uL (3.85-5.65); Red Cell Distribution Width 15.4 % (12.1-15.1); White Blood Count 13.53 10^3/uL (3.29-11.43)
--- NOTE | 2025-02-20 07:48 | ECG_ITS ---
[email or web address] Test Date: 2025-02-20 Pat Name: Mark Mccabe Department: Room: Gender: Male Hide Inspector And Sorter: : 1965 Requested By: Maximo Aguilar Order Number: [id number] Vela MD: David Gonzales M.D. Measurements Intervals [place] Rate: 87 P: 58 HI: 155 QRS: -47 QRSD: 109 T: 97 QT: 373 QTc: 450 Interpretive Statements SINUS RHYTHM PATTERN CONSISTENT WITH PULMONARY DISEASE LEFT ANTERIOR FASCICULAR BLOCK [QRS AXIS <= -45, QR IN I, RS IN II] LEFT VENTRICULAR HYPERTROPHY AND ST-T CHANGE [VOLTAGE CRITERIA PLUS ST/T ABNORMALITY] Compared to ECG 09/05/2024 16:01:04 Left anterior fascicular block now present Supraventricular tachycardia no longer present Left-axis deviation no longer present Incomplete right bundle-branch block no longer present ST (T wave) deviation still present Electronically Signed On 02-25-2025 09:38:36 CDT by David Gonzales M.D. [id number]
[2025-02-20] MEDS: tranexamic acid 1,000 MG/100 ML PREMIX 600 MG IV (07:57)
[2025-02-20] MEDS: sodium chloride 0.9% 100 mL Bag 50 ML IV (07:57)
[2025-02-20 07:59] LABS: Alanine Aminotransferase < 5 U/L (0-41); Albumin Level 4.3 g/dL (3.5-5.2); Alkaline Phosphatase 57 U/L (40-130); Aspartate Amino Transferase 12 U/L (0-40); Blood Urea Nitrogen 26 mg/dL (6-20); Calcium 9.5 mg/dL (8.5-10.5); Carbon Dioxide 16 mmol/L (22-29); Chloride 105 mmol/L (98-107); Globulin 0.9 g/dL (1.3-4.6); Glomerular Filtration Rate 48.1 mL/min (90-130); Glucose 218 mg/dL (65-115); Magnesium 1.6 mg/dL (1.7-2.3); Osmolality Calculated 297 mOsm/kg (285-295); Phosphorus 3.3 mg/dL (2.5-4.5); Sodium 138 mmol/L (136-145); Total Bilirubin 0.4 mg/dL (0.15-1.2); Total Protein 5.2 g/dL (6.6-8.7)
--- NOTE | 2025-02-20 08:00 | PC.NURSE ---
EMERGENT BLOOD STARTED AT 0750.
[2025-02-20 08:32] LABS: Anion Gap 22.2 (5-19); Potassium 5.2 mmol/L (3.5-5.1)
[2025-02-20 08:33] LABS: Lactic Sepsis W/Reflex 5.2 mmol/L (0.5-2.2)
[2025-02-20 08:51] LABS: INR 1.26 (0.8-1.2); Partial Thromboplastin Time 23.1 SECONDS (23.9-36.7)
[2025-02-20] MEDS: factor xa, inactivated-zhzo 800 MG in empty flexible container 1 EACH, non-DEHP filter ... 180 MG IV (08:55)
[2025-02-20] MEDS: HYDROmorphone 0.5 MG/0.5 ML INJ 1 MG IM (09:16)
[2025-02-20 09:19] LABS: Reflex Lactate Order REFLEX LACTIC ORDERD
[2025-02-20] MEDS: factor xa, inactivated-zhzo 960 MG in empty flexible container 1 EACH, non-DEHP filter ... 48 MG IV (09:36)
[2025-02-20] MEDS: diphenhydrAMINE 50 mg Capsule PO (09:38)
--- NOTE | 2025-02-20 09:44 | PC.NURSE ---
PT TRANSPORTED WITH [facility] INFUSING AND [facility] INFUSING. PER EMS THEY ARE UNABLE TO INITIATE BLOOD PRODUCTS. EMS SENT WITH BAG OF LEVOPHED IN THE EVENT PT NEEDS BLOOD PRESSURE SUPPORT. EMS GIVEN LEVOPHED PROTOCOL FOR OZH ADMINISTRATION. PT BLOOD PRESSURE STABLE UPON TRANSPORT.
== END 2025-02-20 09:58 | disposition short-term general hospital (02) ==
PROVIDERS: Emergency Provider Emergency Medicine; PCP Family Medicine
DX: S36.99XA Other injury of unspecified intra-abdominal organ, initial encounter (principal); X58.XXXA Exposure to other specified factors, initial encounter; Z87.891 Personal history of nicotine dependence; E78.5 Hyperlipidemia, unspecified; I12.0 Hypertensive chronic kidney disease with stage 5 chronic kidney disease or end stage renal disease; N18.6 End stage renal disease
CPT/HCPCS: 74176; 80053; 83605; 83735; 84100; 85025; 85610; 85730; 86850; 86900; 86920; 93005; 96365; 96366; 96367; 96372; 99285; J1171; J7030; J7169; J9999; P9016; Q0163

== ENCOUNTER 2025-03-18 08:38 | Emergency (ER) | payer MEDICARE, OTHER, SELFPAY ==
[2025-03-18] VITALS (15 sets, daily range): BP systolic 119–132; BP diastolic 78–88; PULSE 103–124; RESP 13–29; TEMP 36.9; O2SAT 96–100; BMI 27.8
--- OUTSIDE RECORDS SUMMARY | 2025-03-18 08:46 | XMS_ITS | Encounter Summary ---
Author Organization [facility] Address 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 us External Provider [facility] URINE ORDERABLES Final Res ult [facility] LABORATORY [facility] # [id number] [facility] [address] documented in this encounter Visit Diagnoses Not on filedocumented in this encounter
--- OUTSIDE RECORDS SUMMARY | 2025-03-18 08:46 | XMS_ITS | Encounter Summary ---
Author Organization [facility] Address [address] [place] [address] Care Team Providers Care Wrapper Caser Name Role Phone Unavailable Primary Care Provider Unavailabl e Encounter Details Date Type Department Care Team (Latest Contact Info) Description 2003 Outpatient Historical [facility] General Surgery [address] [address] [address] [place] [phone] [place] [address] [facility] [address] [place] [id number] ABDOMINAL PAIN OTHER SPEC SITE (Primary Dx) Social History Tobacco Use Types Packs/Day Years Used Date Smoking Tobacco: Never Assessed Sex and Gender Information Value Date Recorded Sex Assigned at Not on file Legal Sex Male 3:[address] Gender Identity Not on file Sexual Orientation Not on file documented as of this encounter Plan of Treatment Not on file documented as of this encounter Visit Diagnoses Diagnosis Abdominal pain, other specified site- Primary documented in this encounter
--- OUTSIDE RECORDS SUMMARY | 2025-03-18 08:46 | XMS_ITS | Encounter Summary ---
Author Organization [facility] Address [address] [place] [address] Care Team Providers Care Audio Specialist Name Role Phone Unavailable Primary Care Provider Unavailabl e Encounter Details Date Type Department Care Team (Late st Contact Info) Description 03/03/2024 Lab Requisition [facility] Laboratory Services [address] [place] [address] [place] [address] 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 CHEMISTRY ORDERABLES Final Result [facility] [employer] [facility] CLIA # [id number] [address] [address] documented in this encounter Visit Diagnoses Not on filedocumented in this encounter
--- OUTSIDE RECORDS SUMMARY | 2025-03-18 08:46 | XMS_ITS | Encounter Summary ---
Author Organization [facility] Address [address] [place] [address] Care Team Providers Care Data Governance Consultant Name Role Phone Unavailable Primary Care Provider Unavailabl e Encounter Details Date Type Department Care Team (Latest Contact Info) Description 06/11/2005 Outpatient Historical [facility] [address] [place] [address] [facility] [address] [place] [phone] Alejandro Guevara MD [address] [facility] [address] [place] [phone] LUMB/LUMBOSAC DISC DEGEN (Primary Dx) Social History Tobacco Use Types Packs/Day Years Used Date Smoking Tobacco: Never Assessed Sex and Gender Information Value Date Recorded Sex Assigned at Not on file 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
--- OUTSIDE RECORDS SUMMARY | 2025-03-18 08:46 | XMS_ITS | Encounter Summary ---
Author Organization [facility] Address [address] [place] [address] Care Team Providers Care Ip Litigation Paralegal Name Role Phone Unavailable Primary Care Provider Unavailabl e Encounter Details Date Type Department Care Team (Latest Contact Info) Description 06/11/2005 Outpatient Historical [facility] Spine [facility] [address] 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
--- OUTSIDE RECORDS SUMMARY | 2025-03-18 08:46 | XMS_ITS | Encounter Summary ---
Author Organization [facility] Address [address] [place] [address] Care Team Providers Care Loaf Counter Name Role Phone Unavailable Primary Care Provider Unavailabl e Encounter Details Date Type Department Care Team (Late st Contact Info) Description 2004 Outpatient [address] 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
--- OUTSIDE RECORDS SUMMARY | 2025-03-18 08:46 | XMS_ITS | Encounter Summary ---
Author Organization [facility] Address 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 CLIA # [id number] [address] [place], [place] [id number] documented in this encounter Visit Diagnoses Not on filedocumented in this encounter
--- OUTSIDE RECORDS SUMMARY | 2025-03-18 08:46 | XMS_ITS | Clinical Summary ---
Author Organization [facility] Address [address] 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
--- OUTSIDE RECORDS SUMMARY | 2025-03-18 08:47 | XMS_ITS | Encounter Summary ---
Author Organization [facility] Address [address] [place] [address] Care Team Providers Care Preschool Principal Name Role Phone Unavailable Primary Care Provider Unavailabl e Encounter Details Date Type Department Care Team (Latest Contact Info) Description 06/16/2004 Outpatient Historical [facility] [address] [facility] [address] [place] [address] Alejandro Guevara MD [address] [facility] [address] [place] [phone] CERVICALGIA (Primary Dx) Social History Tobacco Use Types Packs/Day Years Used Date Smoking Tobacco: Never Assessed Sex and Gender Information Value Date Recorded Sex Assigned at Not on file 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
--- OUTSIDE RECORDS SUMMARY | 2025-03-18 08:47 | XMS_ITS | Encounter Summary ---
Author Organization [facility] Address [address] [place] [address] Care Team Providers Care Tax Record Clerk Name Role Phone Unavailable Primary Care Provider Unavailabl e Encounter Details Date Type Department Care Team (Latest Contact Info) Description 06/07/2004 Outpatient Historical [facility] [address] [place] [phone] Alejandro Guevara MD [address] [phone] JOINT DIS NOS-SHLDER (Primary Dx) Social History Tobacco Use Types Packs/Day Years Used Date Smoking Tobacco: Never Assessed Sex and Gender Information Value Date Recorded Sex Assigned at Not on file 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
--- OUTSIDE RECORDS SUMMARY | 2025-03-18 08:47 | XMS_ITS | Encounter Summary ---
Author Organization [facility] Address [address] [place] [address] Care Team Providers Care Driver Merchandiser Name Role Phone Unavailable Primary Care Provider Unavailabl e Encounter Details Date Type Department Care Team (Latest Contact Info) Description 06/02/2004 Outpatient Historical [facility] Alejandro Guevara MD [address] [phone] ARTHROPATHY NOS-UNSPEC (Primary Dx) Social History Tobacco Use Types Packs/Day Years Used Date Smoking Tobacco: Never Assessed Sex and Gender Information Value Date Recorded Sex Assigned at Not on file 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
--- OUTSIDE RECORDS SUMMARY | 2025-03-18 08:47 | XMS_ITS | Encounter Summary ---
Author Organization [facility] Address [address] [place] [address] Care Team Providers Care Hat Presser Name Role Phone Unavailable Primary Care Provider Unavailabl e Encounter Details Date Type Department Care Team (Latest Contact Info) Description 06/02/2004 Outpatient Historical [facility] [address] [place] [address] [facility] [address] [place] [phone] Alejandro Guevara MD [address] [facility] [address] [place] [phone] JOINT PAIN-MULT JTS (Primary Dx) Social History Tobacco Use Types Packs/Day Years Used Date Smoking Tobacco: Never Assessed Sex and Gender Information Value Date Recorded Sex Assigned at Not on file 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
--- OUTSIDE RECORDS SUMMARY | 2025-03-18 08:47 | XMS_ITS | Patient Health Record ---
Author Organization [facility] Address [address] [place] [address] Care Team Providers Care Scalp Treatment Specialist Name Role Phone Lilian Sanchez Primary Care Provider Unavail able Iron Colvin Unavailable [phone] Allergies No Known Allergies Results Component Value Reference Range Flag Notes Urine Confirmation Panel (in strument) - [id number] Reviewed date:03/17/2025 05:23:02 PM Interpretation: Performing Lab: Notes/Report: 6-Acetylmorphine 0 <6 ng/mL N This tu t was developed and its performance characteristics determined by [facility]. It has not been cleared or approved by the U.S. Food and Drug Administration. 7-Aminoclonazepam 0 <60 ng/mL N This te st was developed and its performance characteristics determined by [facility]. It has not been cleared or approved by the U.S. Food and Drug Administration. Alprazolam 0 <60 ng/mL N This test was developed and its performance characteristics determined by [facility]. It has not been cleared or approved by the U.S. Food and Drug Administration. Amphetamine 0 <75 ng/mL N This test was developed and its performance characteristics determined by [facility]. It has not been cleared or approved by the U.S. Food and Drug Administration. aOH-Alprazolam 0 <60 ng/mL N This test was developed and its performance characteristics determined by [facility]. It has not been cleared or approved by the U.S. Food and Drug Administration. Buprenorphine 1.0 <7.5 ng/mL N This test w as developed and its performance characteristics determined by [facility]. It has not been cleared or approved by the U.S. Food and Drug Administration. Norbuprenorphine 0.0 <37.5 ng/mL N This te st was developed and its performance characteristics determined by [facility]. It has not been cleared or approved by the U.S. Food and Drug Administration. Carisoprodol 0 <75 ng/mL N This test wa s developed and its performance characteristics determined by [facility]. It has not been cleared or approved by the U.S. Food and Drug Administration. Codeine 0 <75 ng/mL N This test was developed and its performance characteristics determined by [facility]. It has not been cleared or approved by the U.S. Food and Drug Administration. EDDP 0 <75 ng/mL N This test was developed and its performance characteristics determined by [facility]. It has not been cleared or approved by the U.S. Food and Drug Administration. Fentanyl 0 <6 ng/mL N This test was developed and its performance characteristics determined by [facility]. It has not been cleared or approved by the U.S. Food and Drug Administration. Hydrocodone 0 <75 ng/mL N This test was developed and its performance characteristics determined by [facility]. It has not been cleared or approved by the U.S. Food and Drug Administration. Hydromorphone >5000 <75 ng/mL > This test w as developed and its performance characteristics determined by [facility]. It has not been cleared or approved by the U.S. Food and Drug Administration. Lorazepam 0 <60 ng/mL N This test was developed and its performance characteristics determined by [facility]. It has not been cleared or approved by the U.S. Food and Drug Administration. MDMA 0 <75 ng/mL N This test was developed and its performance characteristics determined by [facility]. It has not been cleared or approved by the U.S. Food and Drug Administration. Meperidine 0.0 <37.5 ng/mL N This test was developed and its performance characteristics determined by [facility]. It has not been cleared or approved by the U.S. Food and Drug Administration. Meprobamate 0 <75 ng/mL N This test was developed and its performance characteristics determined by [facility]. It has not been cleared or approved by the U.S. Food and Drug Administration. Methamphetamine 0 <75 ng/mL N This test was developed and its performance characteristics determined by [facility]. It has not been cleared or approved by the U.S. Food and Drug Administration. Methadone 0 <75 ng/mL N This test was developed and its performance characteristics determined by [facility]. It has not been cleared or approved by the U.S. Food and Drug Administration. Morphine 0 <75 ng/mL N This test was developed and its performance characteristics determined by [facility]. It has not been cleared or approved by the U.S. Food and Drug Administration. Nordiazepam 0 <60 ng/mL N This test was developed and its performance characteristics determined by [facility]. It has not been cleared or approved by the U.S. Food and Drug Administration. Norfentanyl 0 <6 ng/mL N This test was developed and its performance characteristics determined by [facility]. It has not been cleared or approved by the U.S. Food and Drug Administration. Normeperidine 0.0 <37.5 ng/mL N This test was developed and its performance characteristics determined by [facility]. It has not been cleared or approved by the U.S. Food and Drug Administration. O-desmethyltramadol 0 <75 ng/mL N This test was developed and its performance characteristics determined by [facility]. It has not been cleared or approved by the U.S. Food and Drug Administration. Oxazepam 0 <60 ng/mL N This test was developed and its performance characteristics determined by [facility]. It has not been cleared or approved by the U.S. Food and Drug Administration. Oxycodone 0.0 <37.5 ng/mL N This test was developed and its performance characteristics determined by [facility]. It has not been cleared or approved by the U.S. Food and Drug Administration. Oxymorphone 0 <75 ng/mL N This test was developed and its performance characteristics determined by [facility]. It has not been cleared or approved by the U.S. Food and Drug Administration. Phencyclidine 0.0 <7.5 ng/mL N This test w as developed and its performance characteristics determined by [facility]. It has not been cleared or approved by the U.S. Food and Drug Administration. Tapentadol 0.0 <37.5 ng/mL N This test was developed and its performance characteristics determined by [facility]. It has not been cleared or approved by the U.S. Food and Drug Administration. Temazepam 0 <60 ng/mL N This test was developed and its performance characteristics determined by [facility]. It has not been cleared or approved by the U.S. Food and Drug Administration. Tramadol 1 <75 ng/mL N This test was developed and its performance characteristics determined by [facility]. It has not been cleared or approved by the U.S. Food and Drug Administration. Norhydrocodone 0 <75 ng/mL N This test was developed and its performance characteristics determined by [facility]. It has not been cleared or approved by the U.S. Food and Drug Administration. Noroxycodone 0 <38 ng/mL N This test wa s developed and its performance characteristics determined by [facility]. It has not been cleared or approved by the U.S. Food and Drug Administration. Pregabalin 0 <225 ng/mL N This test was developed and its performance characteristics determined by [facility]. It has not been cleared or approved by the U.S. Food and Drug Administration. Gabapentin >05916 <225 ng/mL > This test was developed and its performance characteristics determined by [facility]. It has not been cleared or approved by the U.S. Food and Drug Administration. Benzoylecgonine 0.0 <37.5 ng/mL N This tu t was developed and its performance characteristics determined by [facility]. It has not been cleared or approved by the U.S. Food and Drug Administration. 4-Hydroxy Xylazine 0 <25 ng/mL N This t est was developed and its performance characteristics determined by [facility]. It has not been cleared or approved by the U.S. Food and Drug Administration. Urine Drug Screen (cup read) - [id number] Reviewed date:03/10/2025 09:20:39 AM Interpretation: Performing Lab: Notes/Report: OPI + Tox Results (Not yet reviewe d by provider) Interpretation: Performing Lab: Notes/Report: Reason For Referral Reason chronic low back abril n Diagnosis 1 Chronic pain syndrom e (G89.4) Referring Provider First Name Rik Referring Provider Last Name Michelle Referring Provider Speciality Family Med icine Referred Organization [facility] Referred Provider Iron Colvin Referred Address [address] [facility],[place],[address], Referred Provider Specialty [facility] General Notes Joanna Ortiz Jaron 02:31:59 PM >atc pt, no answer, lvm to call clinic, Joanna Ortiz Jaron 12/24/2024 02:38:59 PM >mailed npp, scheduled pt Referral Priority Routine Medications Medication SIG (Take, Route, Frequency, Duration) Notes Start Date End Date Status HYDROmorphone HCl 4 MG Tablet 1 tablet as needed Orally every 6 hrs; Duration: 30 days As needed Not to exceed 4 per day Fill 03/19/2025 03/10/2025 04/18/2025 Active Ondansetron 4 MG Tablet Disintegrating 1 tablet on the tongue and allow to dissolve Orally every 8 hours As needed Active Atorvastatin Calcium 10 MG Tablet 1 tablet Orally Once a day Active oxyCODONE HCl 5 MG Tablet 1 tablet as needed Orally every 6 hours As needed Active FiberCon 625 MG Tablet 1 tablet as needed Orally daily Active Tamsulosin hydrochloride 0.4 MG Oral Capsule Tamsulosin hydrochloride 0.4 MG Oral Capsule 02/05/2017 Active Lomotil 2.5-0.025 MG Tablet 2 tablet as needed Orally 4 times a day Active Myfortic 180 MG Tablet Delayed Release 1 tablet Orally Twice a day Active predniSONE 5 MG Tablet 1 tablet with food or milk Orally daily Active Acetaminophen 325 MG Capsule 2 capsule as needed Orally every 6 hours As needed Active Hypromellose 0.5 % Solution as directed Ophthalmic twice a day Active Vitamin D 25 MCG (1000 UT) Tablet 1 tablet Orally daily Active Losartan Potassium 50 MG Tablet 1 tablet Orally daily Active atorvastatin 10 MG Oral Tablet atorvastatin 10 MG Oral Tablet 02/05/2017 Active amLODIPine Besylate 5 MG Tablet 1 tablet Orally Once a day Active Magnesium Oxide 400 MG Tablet 1 tablet with food Orally daily Active Gabapentin 300 MG Capsule 1 capsule Orally daily Active Tacrolimus 1 MG Capsule as directed Orally daily Active HYDROmorphone HCl 4 MG Tablet 1 tablet as needed Orally daily Active Atrovent Active Flonase Active Sodium Bicarbonate 650 MG Tablet as directed Orally twice a day Active Finasteride 5 MG Tablet 2 tablet Orally daily Active Ferrous Sulfate 325 (65 Fe) MG Tablet 1 tablet Orally daily Active Metoprolol Tartrate 50 MG Oral Tablet Metoprolol Tartrate 50 MG Oral Tablet 04/08/2017 Active Filgrastim 480 MCG/1.6ML Solution as directed Injection daily Active Pantoprazole Sodium 40 MG Tablet Delayed Release 1 tablet 1/2 to 1 hour before morning meal Orally twice a day Active DULoxetine HCl 30 MG Capsule Delayed Release Sprinkle 1 capsule Orally daily Active DULoxetine HCl 60 MG Capsule Delayed Release Sprinkle 1 capsule Orally daily Active Patiromer Sorbitex Calcium 16.8 GM Packet 1 packet dissolved in water. Take other medications at least 3 hours before or 3 hours after this medication Orally daily Active Empagliflozin 25 MG Tablet 1 tablet Orally daily Active Famotidine 20 MG Tablet 1 tablet Orally twice a day Active Immunizations Vaccine Route Administration Date Status Comme nts Influenza (whole), CPT 33264 Inactive Unknown 07/10/2017 Administered Social History Tobacco Use: Social History Observation Description Date Details (start date - stop date) Never Smoker NA - NA Social History Depression Screening Social Info Question Answer Notes PHQ-9 Little interest or pleasure in doing thin gs Several days Feeling down, depressed, or hopeless Not [...] all Total Score 4 Interpretation Minimal Depression Drugs/Alcohol: Social Info Question Answer Notes Alcohol Screen (Audit-C) Did you have a drink containing alcohol in the past year? Yes How often did you have 6 or more drinks on one occasion in the past year? Monthly (2 points) Points 2 Interpretation Negative Drugs Have you used drugs other than those for medical reasons in the past 12 months? No Tobacco Use: Social Info Question Answer Notes Tobacco Control (Standard) Tobacco use: Nonsmoker Additional Details Category Social Info Options Details Miscellaneous: Sexually active: no painful i ntercourse Sexual abuse: no Drugs/Alcohol: Do you smoke marijuana? De nies Do you drink alcohol? Socially zzMigrated Social History Migrated Social History Smoking Status:Ex-smoker (finding) Section Notes: taking medications for menta l health reasons taking medications for menta l health reasons Problems Problem Type SNOMED Code ICD Code Onset Dates Problem Status W/U Status Risk Notes Problem Chronic pain syndrome (122757395) Chronic pain syndrome (G89.4) Active confirmed Problem Cervicalgia (50629916) Cervicalgia (M54.2) Active confirmed Problem Lumbar radiculopathy (444320299) Lumbar radiculopathy (M54.16) Active confirmed Problem Lumbar spondylosis (723746000) Lumbar spondylosis (M47.816) Active confirmed Problem Cervical spondylosis (185154857) Cervical spondylosis (M47.812) Active confirmed Problem Abnormal gait (43875595) Abnormality of gait and mobility (R26.9) Active confirmed Problem History of renal transplant (803800728) History of renal transplant (Z94.0) Active confirmed Problem Degeneration of cervical intervertebral disc (75902736) Degeneration, intervertebral disc, 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) Active confirmed Problem Thoracic spondylosis without myelopathy (711725236) 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) Active confirmed Vital Signs Weight-kg 93.44 kg 03/10/2025 Height 72 in 03/10/2025 Weight 206 lbs 03/10/2025 BMI 27.94 kg/m2 03/10/2025 Encounters Encounter Location Date Provider Diagnosis [facility] [place] [address] [id number] 02/10/2025 Iron Colvin Chronic pain syndrom e G89.4 ; Abnormality of gait and mobility R26.9 ; Cervical spondylosis M47.812 ; Lumbar radiculopathy M54.16 ; 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 ; History of renal transplant Z94.0 ; Lumbar spondylosis M47.816 and Multilevel thoracic spondylosis without myelopathy M47.814 [facility] [place] [address] [place] [address] 03/10/2025 Iron Colvin Chronic pain syndrom e G89.4 ; Cervical spondylosis M47.812 ; Multilevel thoracic spondylosis without myelopathy M47.814 ; Other spondylosis with radiculopathy, lumbar region M47.26 ; Abnormality of gait and mobility R26.9 ; 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 It sounds like he has had a rather rough go at it lately, and has been dealing with renal issues and ended up getting admitted to the hospital twice in [place], where his renal team is, and he also saw neurosurgery there, and they ordered an EMG/nerve conduction study. That isn't scheduled until late April, so I recommended contacting them, if they want to have our physician here that to save him the trip. For now, we will just continue the Dilaudid as he does find it effective and tolerates it well. We will follow up with him in about 5 weeks and proceed accordingly. 03/10/2025 Cervical spondylosis (ICD-10 - M47.812) 02/10/2025 Cervical spondylosis (ICD-10 - M47.812) 03/10/2025 Multilevel thoracic spondylosis without myelopathy (ICD-10 - M47.814) 03/10/2025 Other spondylosis with radiculopathy, lumbar region (ICD-10 - M47.26) 02/10/2025 Lumbar radiculopathy (ICD-10 - M54.16) 02/10/2025 correction (current) use of opiate analgesic (ICD-10 - Z79.891) 03/10/2025 Abnormality of gait and mobility (ICD-10 - R26.9) 02/10/2025 History of renal transplant (ICD-10 - Z94.0) 03/10/2025 correction (current) use of opiate analgesic (ICD-10 - Z79.891) RECOMMEND URINE TESTING TODAY Urine drug screening will be performed today to monitor compliance with opioid therapy or to serve as a baseline screen for a patient who may be a candidate for opioid therapy in the future, pending UDS results. We will monitor with in-office testing (rapid testing) today and review the results prior to dispensing prescription. All positive results will be sent for quantitative analysis to ensure accuracy and quantify amounts. Any expected positive results that return negative will also be sent for quantitative analysis. Any questionable read or any medication we cannot test for in the office confidently will be sent for quantitative analysis, as well. Patient has been made aware of this policy and agrees to abide by our urine testing policy. 02/10/2025 Lumbar spondylosis (ICD-10 - M47.816) 03/10/2025 History of renal transplant (ICD-10 - Z94.0) 02/10/2025 Multilevel thoracic spondylosis without myelopathy (ICD-10 - M47.814) 03/10/2025 Lumbar spondylosis (ICD-10 - M47.816) 03/10/2025 Depression screen (ICD-10 - Z13.31) 03/10/2025 Lumbar radiculopathy (ICD-10 - M54.16) 02/10/2025 Other Cari, JUAN ANTONIO Underwood, am scribing for Dr. Iron Colvin. I, Dr. Iron Colvin, personally performed the services described in this documentation, as scribed by JUAN ANTONIO Underwood, and it is both accurate and complete. 03/10/2025 Other I, JUAN ANTONIO Underwood, am scribing for Dr. Iron Colvin. I, Dr. Iron Colvin, personally performed the services described in this documentation, as scribed by JUAN ANTONIO Underwood, and it is both accurate and complete. Plan Of Treatment Pending Test Test Name Order Date Tox Results 03/10/2025 Next Appt Details Provider Name:Landy Anthony alex, 04/15/2025 08:40:00 AM, [address] [place], [address], Insurance Providers Payer Name Payer Address Payer Phone Subscriber Number Group Number Insured Name Patient Relationship to Insured Coverage Start Date Coverage End Date [employer] [place] [address] [place] [phone] [id number] Mark Mccabe Self - patient is the insured [employer] - Out of Network [address] [address] [place] [address] [id number] Mark Mccabe Self - patient is the insured [id number] [address] [place] [address] [id number] Mark Mccabe Self - patient is the [...]
--- OUTSIDE RECORDS SUMMARY | 2025-03-18 08:47 | XMS_ITS | Encounter Summary ---
Author Organization [facility] Address [address] [place] [address] Care Team Providers Care Personnel Analyst Name Role Phone Unavailable Primary Care Provider Unavailabl e Encounter Details Date Type Department Care Team (Late st Contact Info) Description 2004 Outpatient Historical [facility] [address] 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
--- OUTSIDE RECORDS SUMMARY | 2025-03-18 08:47 | XMS_ITS | Encounter Summary ---
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
--- OUTSIDE RECORDS SUMMARY | 2025-03-18 08:47 | XMS_ITS | Patient Health Record ---
Author Organization [facility] Address [address] [place], [place] [id number] Care Team Providers Care Retail Grocer Name Role Phone Macario DESHPANDE, Rik Primary Care Provider Carola DESHPANDE, Corona Unavailable [phone] Kari DESHPANDE, Corona Unavailable Unavailable Carmen Escobedo Unavailable [phone] Allergies No Known Allergies Results Component Value Reference Range Notes Urine tox screen / MS if ind icated Reviewed date:08/12/2024 04:35:40 PM Interpretation:Consistent Performing Lab: Notes/Report: Consistent Reason For Referral Reason Evaluation for possi ble treatment (clinic closing due to provider's alf) Diagnosis 1 Pain in thoracic spi ne (M54.6) Diagnosis 2 Cervicalgia (M54.2) Diagnosis 3 Vertebrogenic low ba ck pain (M54.51) Referral Organization [facility] Referring Provider First Name Corona Referring Provider [...] Answer Notes : nonsmoker - quit 1982, [facility][1] tobacco utilized AUDIT-C (Standard) Question Answer Notes Did you have a drink containing alcohol in the p ast year? No Points 0 Interpretation Negative Problems Problem Type SNOMED Code ICD Code Onset Dates Problem Status W/U Status Risk Notes Problem Circulating anticoagulant assay (75763956) Circulating anticoagulant (286.5) Active confirmed Problem Dysphagia (46657714) Dysphagia (438.82) Active confirmed Problem Lower limb joint arthritis (289037990) Osteoarthrosis not designated as generalized or localized NOS, lower leg (715.96) Active confirmed Problem Displacement of lumbar intervertebral disc without myelopathy (28750831) Lumbar (w/out myelopathy) intervertebral disc disorder (722.10) Active confirmed Problem Enthesopathy (73003874) Tendonitis, tendinitis (726.90) Active confirmed Problem Sleep dysfunction with sleep stage disturbance (820088508) Dysfunctions associated with sleep stages or arousal from sleep (780.56) Active confirmed Problem Complaining of a back symptom (464027908) Facet arthropathy/synd rylan (724.8) Active confirmed Problem Knee pain (88885220) Knee pain (719.46) Active confirmed Problem Neck pain (37387247) Neck pain (723.1) Active confirmed Problem Pain in thoracic spine (501163664) Thoracic pain (724.1) Active confirmed Problem Long-term drug therapy (772340418) LONG-TERM USE MEDS NEC (V58.69) Active confirmed R/O substance abuse Problem Headache (24632628) Headache (784.0) Active confirmed Problem Anxiety state (215986211) Anxiety State, other, specified: procedure related (300.09) Active confirmed Problem Displacement of cervical intervertebral disc without myelopathy (15644773) Cervical (w/out myelopathy) intervertebral disc disorder (722.0) Active confirmed Problem Solitary sacroiliitis (439523410) Sacroiliitis (720.2) Active confirmed Problem Displacement of thoracic intervertebral disc without myelopathy (39708019) Thoracic disc (w/out myelopathy) disorder (722.11) Active confirmed Problem Cervical spinal stenosis (02373108) Cervical spinal stenosis (723.0) Active confirmed Problem Cervical spondylosis without myelopathy (378228340) Cervical spondylosis without myelopathy (721.0) Active confirmed Problem Low back pain (854254208) Low back pain (724.2) Active confirmed Problem Solitary sacroiliitis (281246895) Sacroiliitis, not elsewhere classified (M46.1) Active confirmed Problem Low back pain (969703534) Low back pain (M54.5) Active confirmed Problem Lumbosacral spondylosis without myelopathy (18469238) Spondylosis without myelopathy or radiculopathy, lumbar region (M47.816) Active confirmed Problem High risk drug monitoring status (152419730) custodial (current) use of opiate analgesic (Z79.891) Active confirmed Problem Pain in left knee (896289505728187 ) Pain in left knee (M25.562) Active confirmed Problem Enthesopathy (62180576) Enthesopathy, unspecified (M77.9) Active confirmed Problem Anxiety disorder (810043638) Other specified anxiety disorders (F41.8) Active confirmed Problem Sleep disorder (08660956) Other sleep disorders (G47.8) Active confirmed Problem Chronic pain (01461253) Other chronic pain (G89.29) Active confirmed Problem Essential hypertension (02584197) Essential (primary) hypertension (I10) 12/17/2 024 Active confirmed Problem Shoulder joint pain (577799637) Pain in right shoulder (M25.511) Active confirmed Problem Cervical spondylosis without myelopathy (742725170) Spondylosis without myelopathy or radiculopathy, cervical region (M47.812) Active confirmed Problem Spinal stenosis in cervical region (47409439) Spinal stenosis, cervical region (M48.02) Active confirmed Problem Cervical radiculopathy (16543743) Cervical disc disorder with radiculopathy, unspecified cervical region (M50.10) Active confirmed Problem Cervical disc disorder with radiculopathy (946803038) Cervical disc disorder with radiculopathy, mid-cervical region (M50.12) Active confirmed Problem Thoracic radiculopathy (00368255) Intervertebral disc disorders with radiculopathy, thoracic region (M51.14) Active confirmed Problem Radiculopathy due to lumbar intervertebral disc disorder (849303953476230 ) Intervertebral disc disorders with radiculopathy, lumbar region (M51.16) Active confirmed Problem Cervicalgia (91582875) Cervicalgia (M54.2) Active confirmed Problem Pain in thoracic spine (037894545) Pain in thoracic spine (M54.6) Active confirmed Problem Myalgia (71015614) Myalgia (M79.1) Active confirmed Problem Headache (63790859) Headache (R51) Active confirmed Problem Neurogenic claudication (384076445) Spinal stenosis, lumbar region with neurogenic claudication (M48.062) Active confirmed Problem Myalgia (54973278) Myalgia of auxiliary muscles, head and neck (M79.12) Active confirmed Problem Muscle pain (14412184) Myalgia, other site (M79.18) Active confirmed Problem Headache (58072360) Headache, unspecified (R51.9) Active confirmed Problem Vertebrogenic pain syndrome (484561642) Vertebrogenic low back pain (M54.51) Active confirmed Vital Signs Temperature 97.3 degrees Fahrenheit 12/09/2024 Oximetry 99 % 12/09/2024 Blood pressure diastolic 88 mm Hg 12/09/2024 Height 72 in 12/09/2024 Blood pressure systolic 116 mm Hg 12/09/2024 Weight 208.8 lbs 12/09/2024 BMI 28.32 kg/m2 12/09/2024 Encounters Encounter Location Date Provider Diagnosis [facility] [address] [place] [id number] 05/21/2024 Carmen Perla Myalgia of auxiliary muscles, head and neck M79.12 ; Vertebrogenic low back pain M54.51 ; Other chronic pain G89.29 ; Myalgia, other site M79.18 and Other sleep disorders G47.8 [facility], [facility] [address] [place] [id number] 08/12/2024 Corona Srivastava Vertebrogenic low ba ck pain M54.51 ; Other chronic pain G89.29 ; Myalgia, other site M79.18 ; Other sleep disorders G47.8 ; intermediate frame tender (current) use of opiate analgesic Z79.891 and Essential (primary) hypertension I10 [facility], [address] [id number] 09/22/2024 Corona Srivastava Vertebrogenic low ba ck pain M54.51 ; Myalgia, other site M79.18 ; Other chronic pain G89.29 and Other sleep disorders G47.8 [facility], [address] [id number] 10/07/2024 Corona Srivastava Vertebrogenic low ba ck pain M54.51 ; Other chronic pain G89.29 ; Myalgia, other site M79.18 and Other sleep disorders G47.8 [facility], [address] [id number] 12/09/2024 Corona Srivastava Vertebrogenic low ba ck pain M54.51 ; Other chronic pain G89.29 ; Myalgia, other site M79.18 and Other sleep disorders G47.8 [facility], [address] [id number] 12/21/2024 Corona Srivastava Assessments Encounter Date Diagnosis (ICD Code) Assessment Notes Treatment Notes Treatment Clinical Notes Section Notes 05/21/2024 Myalgia of auxiliary muscles, head and neck (ICD-10 - M79.12) TPIs with history of benefit reported by patient. 12/09/2024 Vertebrogenic low back pain (ICD-10 - M54.51) Chronic axial lumbosacral spine pain. Patient reports an appointment scheduled for 12/22/[address] Persaud, neurosurgeon in [place]. 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 Plan to continue oral opioid medication management. [...] minimally invasive interventional spine treatment on 09/22/24. 08/12/2024 Other chronic pain (ICD-10 - G89.29) Patient reports that taking his pain medication allows him to spend time with family. Plan to continue oral opioid medication management. 08/12/2024 Vertebrogenic low back pain (ICD-10 - M54.51) Chronic axial lumbosacral spine pain. 08/12/2024 Myalgia, other site (ICD-10 - M79.18) Patient reports benefit with use of tizanidine for muscle spasms. Plan to continue. 09/22/2024 Other chronic pain (ICD-10 - G89.29) [...] ongoing benefits for LBP as noted, below 12/09/2024 Other chronic pain (ICD-10 - G89.29) Patient reports that taking his pain medication allows him to be more active each day. Plan to continue oral opioid medication management. 05/21/2024 Vertebrogenic low back pain (ICD-10 - M54.51) Chronic axial lumbosacral spine pain. 05/21/2024 Other chronic pain (ICD-10 - G89.29) Patient reports that taking his pain medication allows him to spend more time fishing. Plan to continue oral opioid medication management. 05/21/2024 Myalgia, other site (ICD-10 - M79.18) TPIs with history of benefit reported by patient. Patient reports benefit with use of tizanidine for muscle spasms. Plan to continue. 12/09/2024 Myalgia, other site (ICD-10 - M79.18) Patient reports benefit with use of tizanidine for muscle spasms. Plan to continue. 10/07/2024 Other sleep disorders (ICD-10 - G47.8) Plan to continue to restrict opioid use in relation to sleep for safety concerns. 09/22/2024 Other sleep disorders (ICD-10 - G47.8) Plan to continue to restrict opioid use in relation to sleep for safety concerns. 08/12/2024 Other sleep disorders (ICD-10 - G47.8) Plan to continue to restrict opioid use in relation to sleep for safety concerns. 08/12/2024 custodial (current) use of opiate analgesic (ICD-10 - [...] clinic is closing due to Dr. Srivastava's alf; see scanned document. Terminal prescriptions were given to the patient along with tapering instructions. 08/12/2024 Other The service was provided by JAMAL Garcia, as part of the ongoing care plan established by Corona Srivastava MD, who was present in the office for direct supervision during the encounter. 10/07/2024 Other Patient reports he is scheduled for a cardiac ablation on 10/09/[address] [facility] in . 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 , 10/10/24 Hospitalization History Reason Date(Month/Year) High heart rate, treated at [facility]. 06/2024 Low blood pressure, treated at [facility] in [place], [place] x 3, 01/2024 Low blood pressure, treated at [facility] in [place], [place], 12/2023 Stomach bug, treated at [facility] in [place], [place], 08/2022 Cough, treated at [facility], 07/2021 COVID - 19, treated at [facility], 01/2021 Infection around PD catheter, treated at [facility], 01/2021 Pneumonia, treated at [facility] in [place], [place], 12/25/20-01/13/21 Toxic build up, treated at [place], [place], 08/2019 Infection, treated at [facility], 07/18/18-06/27 02/10 Kidney failure, twice admitted at [facility], 0 09/2017 Possible pneumonia, high hea rt rate and low oxygen level, admitted at [place], [place], 07/10/17-07/12/17 Concussion, 1990
--- OUTSIDE RECORDS SUMMARY | 2025-03-18 08:47 | XMS_ITS | Clinical Summary ---
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 Gender Identity Not on file Sexual Orientation Not on file Plan of Treatment Health Maintenance Due Date Last Done Comments Pre-Diabetes and Diabetes Screening 1965 HEPATITIS B VACCINES (1 of 3 - 19+ 3-dose series) 1985 FIT-DNA Q 3 years 2011 FIT/FOBT Q 1 year 2011 COVID-19 Vaccine (2023-2 5 season) 2024 07/12/2022, 02/07/2022, 09/08/2021, Additional history exists INFLUENZA VACCINE (#1) 2025 , 06/29/2022, 06/20/2020, Additional history exists Flex Sig/CT Colonography Q 5 years 01/27/20292023 DTAP/TDAP/TD VACCINES (2 - T d or Tdap) 01/25/2033 01/25/2023, 05/23/2022, 06/07/2005, Additional history exists COLORECTAL SCREENING 01/27/2034 01/28/2024 Colorectal Cancer Screening 01/27/2034 ZOSTER VACCINE Completed 07/26/2023, 01/18/2023
--- OUTSIDE RECORDS SUMMARY | 2025-03-18 08:47 | XMS_ITS | Encounter Summary ---
Author Organization [facility] Address [address] [place] [address] Care Team Providers Care Glass Vial Bending Conveyor Feeder Name Role Phone Unavailable Primary Care Provider Unavailabl e Encounter Details Date Type Department Care Team (Latest Contact Info) Description 06/16/[address] [facility] [address] 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
--- OUTSIDE RECORDS SUMMARY | 2025-03-18 08:47 | XMS_ITS | Encounter Summary ---
Author Organization [facility] Address [address] [place] [address] Care Team Providers Care Box Repairer Name Role Phone Unavailable Primary Care Provider Unavailabl e Encounter Details Date Type Department Care Team (Latest Contact Info) Description 06/02/2004 [facility] [place] [facility] [address] 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
--- NOTE | 2025-03-18 09:03 | USCV_ITS ---
Mark Mccabe Age: 59 Gender: M : 1965 Exam Date: 03/18/2025 09:28 Ordering Phys: Franky Owens DO Technologist: [place] [facility] [place]: [place] arm swelling pt has av fistula PROCEDURES: Venous duplex imaging was performed in only the left upper extremity. The following venous structures were evaluated: internal jugular vein, subclavian vein, axillary vein, and brachial veins. In addition, the basilic vein, cephalic vein, radial vein, and ulnar vein. FINDINGS: No evidence of deep vein thrombosis or superficial thrombophlebitis in the left upper extremity. CONCLUSIONS No left upper extremity DVT. Dr. Maile Rouse DO (Electronically Signed) Final Date: 18 March 2025 10:36 S
--- NOTE | 2025-03-18 09:13 | W.ED.EXTPRO ---
HPI - Extremity Problem General: Chief complaint: Extremity Problem,Nontraumatic Stated complaint: lt arm pian and swelling Time Seen by Provider: 03/18/25 08:46 History of Present Illness: 59-year-old male presents emergency room with left arm pain and swelling. Patient has a AV fistula in the left forearm. He had a renal transplant several years ago that is still accessed the AV fistula for plasmapheresis. He denies any fever no chest pain or shortness of breath. He noticed the left arm pain beginning Saturday its progressively worsened throughout the week. Some swelling distal to the graft none proximal. He also reports palpitations rapid heart rate. States he has had this in the past. Associated symptoms: Deny chest pain, fever(s) or rash Related Data Home Medications ?Medication ?Instructions ?Recorded ?Confirmed cholecalciferol (vitamin D3) 25 25 mcg PO QAM 01/14/20 03/18/25 mcg (1,000 unit) capsule fluticasone propionate 50 2 spray intranasal DAILY PRN 01/14/20 03/18/25 mcg/actuation nasal Allergy Symptoms spray,suspension tamsulosin 0.4 mg capsule 0.4 mg PO QAM 01/14/20 03/18/25 atorvastatin 10 mg tablet 10 mg PO BEDTIME 02/13/21 03/18/25 famotidine 20 mg tablet 20 mg PO BID 07/11/21 03/18/25 hydromorphone 4 mg tablet 4 mg PO Q4H PRN Pain 07/11/21 03/18/25 diphenoxylate-atropine 2.5 2 tab PO QID PRN Diarrhea 01/16/22 03/18/25 mg-0.025 mg tablet prednisone 5 mg tablet 5 mg PO QAM 01/16/22 03/18/25 acetaminophen 325 mg capsule 650 mg PO Q4H PRN Pain 03/20/22 03/18/25 artificial tears(hypromellose) 0.3 1 drp ophthalmic (eye) DAILY PRN 03/13/23 03/18/25 % eye drops Itching losartan 50 mg tablet 25 mg PO DAILY 03/13/23 03/18/25 patiromer calcium sorbitex 16.8 See Rx Instructions .Route 03/13/23 03/18/25 gram oral powder packet (Veltassa) .COMPLEX PRN Hyperkalemia empagliflozin 25 mg tablet 25 mg PO QAM 06/06/23 03/18/25 (Jardiance) ferrous sulfate 325 mg (65 mg 325 mg PO QAM 08/08/23 03/18/25 iron) tablet filgrastim 480 mcg/1.6 mL 480 mcg SUBCUT DAILY PRN UNKNOWN 08/08/23 03/18/25 injection solution (Neupogen) finasteride 5 mg tablet 10 mg PO QAM 12/11/23 03/18/25 ipratropium bromide 42 mcg (0.06 2 spray intranasal QID ALLERGIES 12/11/23 03/18/25 %) nasal spray mycophenolate sodium 360 mg 360 mg PO BID 12/11/23 03/18/25 tablet,delayed release calcium polycarbophil 625 mg 625 mg PO QAM 07/15/24 03/18/25 tablet (FiberCon) duloxetine 60 mg capsule,delayed 60 mg PO QAM 07/15/24 03/18/25 release gabapentin 300 mg capsule 300 mg PO QAM 07/15/24 03/18/25 megestrol 400 mg/10 mL (40 mg/mL) 400 mg PO QAM 07/15/24 03/18/25 oral suspension sodium bicarbonate 650 mg tablet 1,300 mg PO BID 07/15/24 03/18/25 duloxetine 30 mg capsule,delayed 30 mg PO BEDTIME 02/20/25 03/18/25 release metoprolol succinate 25 mg 25 mg PO QAM 02/20/25 03/18/25 tablet,extended release 24 hr ondansetron 4 mg disintegrating 4 mg PO Q8H PRN Nausea And Vomiting 02/20/25 03/18/25 tablet tacrolimus 1 mg tablet,extended 1 mg PO DAILY 02/20/25 03/18/25 release 24 hr (Envarsus XR) Previous Rx's ?Medication ?Instructions ?Recorded pantoprazole 40 mg tablet,delayed 40 mg PO BID 6 weeks #84 tabs 04/12/23 release (Protonix) cephalexin 500 mg capsule 500 mg PO TID 10 days #30 caps 03/18/25 Allergies Allergy/AdvReac Type Severity Reaction Status Date / Time No Known Allergies Allergy Verified 08/06/24 09:03 Review of Systems Const: Denies: fever(s) or chills Card: Denies: chest pain Resp: Denies: dyspnea GI: Denies: abdominal pain : Denies: dysuria, urinary frequency or urinary urgency Musc: Denies: neck pain or back pain Skin/Breast: Denies: rash 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 Carpal tunnel syndrome, bilateral upper limbs Surgical History Hx of colonoscopy less than 1 year, no polyps History of esophagogastroduodenoscopy (EGD) less than 1 year History of bilateral carpal tunnel release History of right breast biopsy for benign disease History of thoracotomy with chest tube, for pneumonia History of kidney transplant (09/2021) History of cholecystectomy History of umbilical hernia repair History of arthroscopic knee surgery x 3 History of arthroscopy of right shoulder Family History Father CAD (coronary artery disease) Chronic kidney disease (CKD) Mother Arthritis Other Diabetes Hyperlipidemia Hypertension Denies family history of Clotting disorder Dementia Psychiatric illness Suicide Anesthesia complication Bleeding disorder Lung disease Cancer Stroke Social History Smoking and tobacco/nicotine status: former use of tobacco/nicotine Alcohol intake: never Substance/Drug Use: never Household members: spouse Marital status: Current occupational status: disabled Physical Exam Const: GENERAL APPEARANCE: cooperative ORIENTATION/CONSCIOUSNESS: Yes awake, Yes oriented to person, Yes oriented to place and Yes oriented to time HENMT: COMMON NORMALS: normocephalic, atraumatic and hearing grossly normal bilaterally HEAD & SCALP: normocephalic and atraumatic Resp: COMMON NORMALS: normal respiratory effort, No retractions, No use of accessory muscles and clear to auscultation bilaterally AUSCULTATION: clear to auscultation bilaterally Cardio: COMMON NORMALS: regular rhythm and No murmurs present (Cardio) RATE: tachycardic RHYTHM: regular rhythm GI: COMMON NORMALS: Soft to palpation and No hepatosplenomegaly present AUSCULTATION: Yes normoactive bowel sounds PALPATION: Yes Soft to palpation, No Tenderness to palpation present (GI), No Guarding due to palpation present (GI) and Yes No hepatosplenomegaly present Extremity: COMMON NORMALS: normal to inspection, capillary refill normal, no calf tenderness and no pedal edema OTHER: Left forearm palpable AV fistula with thrill. There is boggy edema from the hand to the mid forearm no significant swelling proximal to the AV fistula. Neuro: SENSORIUM/ORIENTATION: Yes oriented to person, Yes oriented to place and Yes oriented to time Skin: COMMON NORMALS: no rashes or lesions noted GENERAL SKIN EXAM: no rashes or lesions noted Course Vital Signs: Vital signs: Vital Signs Temperature 98.4 F 03/18/25 08:50 Pulse Rate 103 H 03/18/25 10:32 Respiratory Rate 15 03/18/25 10:25 Blood Pressure 132/87 03/18/25 10:32 Pulse Oximetry 100 03/18/25 10:32 Oxygen Delivery Me thod Room Air 03/18/25 09:27 MDM - Extremity (Nontraumatic) Medical Decision Making Presentation more consistent with a cellulitis of the distal extremity. No abscess formation ultrasound does not show any upper extremity DVT. Will start her on cephalexin he has no leukocytosis cultures were done recommend that he follow-up with his primary care doctor early next week return if worsening symptoms Medical Records I reviewed the patient's medical records. Lab Data I reviewed the patient's lab results. 03/18/25 09:19 03/18/25 09:19 Laboratory Results WBC 8.21 10^3/uL (3.29-11.43) 03/18/25 09:19 RBC 3.66 10^6/uL (3.85-5.65) L 03/18/25 09:19 Hgb 10.10 g/dL (11.27-16.99) L 03/18/25 09:19 Hct 33.6 % (37-53) L 03/18/25 09:19 MCV 91.8 fl (82-101) 03/18/25 09:19 MCH 27.6 pg (27-33) 03/18/25 09:19 MCHC 30.1 g/dL (30-55) 03/18/25 09:19 RDW 15.7 % (12.1-15.1) H 03/18/25 09:19 Plt Count 214 10^3/cmm (157-399) 03/18/25 09:19 MPV 9.6 fL (7.4-10.4) 03/18/25 09:19 Neut % (Auto) 70.4 % 03/18/25 09:19 Lymph % (Auto) 13.6 % 03/18/25 09:19 [place] % (Auto) 13.4 % 03/18/25 09:19 Eos % (Auto) 1.8 % 03/18/25 09:19 Baso % (Auto) 0.4 % 03/18/25 09:19 Neut # (Auto) 5.78 10^3/uL (1.8-7.7) 03/18/25 09:19 Lymph # (Auto) 1.1 10^3/uL (0.8-4.8) 03/18/25 09:19 [place] # (Auto) 1.1 10^3/uL (0.2-0.9) H 03/18/25 09:19 Eos # (Auto) 0.2 10^3/uL (0.0-0.8) 03/18/25 09:19 Baso # (Auto) 0.0 10^3/uL (0.0-0.1) 03/18/25 09:19 Nucleated RBC % (auto) 0 % 03/18/25 09:19 Nucleated RBCs # 0.0 /100WBC 03/18/25 09:19 Sodium 140 mmol/L (136-145) 03/18/25 09:19 Potassium 3.6 mmol/L (3.5-5.1) 03/18/25 09:19 Chloride 107 mmol/L (98-107) 03/18/25 09:19 Carbon Dioxide 21 mmol/L (22-29) L 03/18/25 09:19 Anion Gap 15.6 (5-19) 03/18/25 09:19 BUN 22 mg/dL (6-20) H 03/18/25 09:19 Creatinine 1.7 mg/dL (0.7-1.2) H 03/18/25 09:19 GFR Calculation 41.6 mL/min (90-130) L 03/18/25 09:19 Glucose 107 mg/dL (65-115) 03/18/25 09:19 Calculated Osmolality 294 mOsm/kg (285-295) 03/18/25 09:19 Lactic Acid 1.8 mmol/L (0.5-2.2) 03/18/25 09:19 Calcium 9.0 mg/dL (8.5-10.5) 03/18/25 09:19 Total Bilirubin 0.7 mg/dL (0.15-1.2) 03/18/25 09:19 AST 9 U/L (0-40) 03/18/25 09:19 ALT < 5 U/L (0-41) 03/18/25 09:19 Alkaline Phosphatase 98 U/L (40-130) 03/18/25 09:19 Total Protein 5.2 g/dL (6.6-8.7) L 03/18/25 09:19 Albumin 3.8 g/dL (3.5-5.2) 03/18/25 09:19 Globulin 1.4 g/dL (1.3-4.6) 03/18/25 09:19 All radiology interpretation(s) finalized by discharge Discharge Plan Discharge Patient Disposition: Home Clinical Impression: Cellulitis Condition: Stable Prescriptions: New cephalexin 500 mg capsule 500 mg PO TID 10 Days Qty: 30 0RF No Action tamsulosin 0.4 mg capsule 0.4 mg PO QAM fluticasone propionate 50 mcg/actuation spray,suspension 2 spray INTRANASAL DAILY PRN (Reason: Allergy Symptoms) cholecalciferol (vitamin D3) 25 mcg (1,000 unit) capsule 25 mcg PO QAM hydromorphone 4 mg tablet 4 mg PO Q4H PRN (Reason: Pain) famotidine 20 mg tablet 20 mg PO BID Jardiance 25 mg tablet 25 mg PO QAM Rx Instructions: recently put on hold ferrous sulfate 325 mg (65 mg iron) tablet 325 mg PO QAM Neupogen 480 mcg/1.6 mL solution 480 mcg SUBCUT DAILY PRN (Reason: UNKNOWN) acetaminophen 325 mg capsule 650 mg PO Q4H PRN (Reason: Pain) atorvastatin 10 mg tablet 10 mg PO BEDTIME pantoprazole [Protonix] 40 mg tablet,delayed release (DR/EC) 40 mg PO BID 42 Days Qty: 84 1RF mycophenolate sodium 360 mg tablet,delayed release (DR/EC) 360 mg PO BID ipratropium bromide 42 mcg (0.06 %) spray,non-aerosol 2 spray INTRANASAL QID finasteride 5 mg tablet 10 mg PO QAM megestrol 400 mg/10 mL (40 mg/mL) suspension 400 mg PO QAM sodium bicarbonate 650 mg tablet 1,300 mg PO BID calcium polycarbophil [FiberCon] 625 mg Tablet 625 mg PO QAM gabapentin 300 mg capsule 300 mg PO QAM duloxetine 60 mg capsule,delayed release(DR/EC) 60 mg PO QAM Rx Instructions: Patient takes at noon and bedtime with the 30mg tab duloxetine 30 mg capsule,delayed release(DR/EC) 30 mg PO BEDTIME metoprolol succinate 25 mg tablet extended release 24 hr 25 mg PO QAM ondansetron 4 mg tablet,disintegrating 4 mg PO Q8H PRN (Reason: Nausea And Vomiting) Envarsus XR 1 mg tablet extended release 24 hr 1 mg PO DAILY prednisone 5 mg tablet 5 mg PO QAM diphenoxylate-atropine 2.5-0.025 mg tablet 2 tab PO QID PRN (Reason: Diarrhea) artificial tears(hypromellose) 0.3 % Drops 1 drp OPHTHALMIC (EYE) DAILY PRN (Reason: Itching) losartan 50 mg Tablet 25 mg PO DAILY Rx Instructions: RX is on hold as of 02/19/25 Veltassa 16.8 gram Powder In Packet See Rx Instructions .ROUTE .COMPLEX PRN (Reason: Hyperkalemia) Rx Instructions: dissolve one packet daily at noon . Discharge Orders: Discharge ED (Routine); Ordered 03/18/25 Ordered By: Franky Owens Referrals: Rik Sorto MD [Primary Care Provider, Family Practice] Discharge Diet: Usual diet Discharge Activity: Increase activity as tolerated Patient Instructions: Opioid Safety, Pain Management, Patient Portal & Sugar Instructions Activity Restrictions/Additional Instructions: Thank you for choosing [facility] for your healthcare needs today. It is very important that you follow up as instructed or that you return to the Emergency Department should you have concerns or if your condition changes or worsens in any way. You were seen in the emergency room with complaint of swelling in your left forearm. Ultrasound shows there is no DVT. On exam symptoms are more suggestive of a cellulitis your white count was normal recommend you start on oral antibiotics for 10 days follow-up with your doctor next week if symptoms worsen or you develop fever recheck. Print Language: Barbadian Coding Level of Care Code ED Senior Training Specialist for Audrey Almanza
--- NOTE | 2025-03-18 09:18 | ECG_ITS ---
[employer] Test Date: 2025-03-18 Pat Name: Mark Mccabe Department: Room: Gender: Male Visual Basic Programmer: : 1965 Requested By: Franky Lawrence Order Number: [id number] Reading MD: Measurements Intervals [place] Rate: 117 P: 37 NH: 178 QRS: -38 QRSD: 103 T: 109 QT: 323 QTc: 452 Interpretive Statements SINUS TACHYCARDIA LEFT AXIS DEVIATION [QRS AXIS < -30] PATTERN CONSISTENT WITH PULMONARY DISEASE LEFT VENTRICULAR HYPERTROPHY AND ST-T CHANGE [VOLTAGE CRITERIA PLUS ST/T ABNORMALITY] [email or web address]
[2025-03-18 09:33] LABS: Hematocrit 33.6 % (37-53); Hemoglobin 10.10 g/dL (11.27-16.99); Mean Corpuscular HGB Conc 30.1 g/dL (30-55); Mean Corpuscular Hemoglobin 27.6 pg (27-33); Mean Corpuscular Volume 91.8 fl (82-101); Nucleated Red Blood Cells % 0 %; Platelet Count 214 10^3/cmm (157-399); Red Blood Count 3.66 10^6/uL (3.85-5.65); White Blood Count 8.21 10^3/uL (3.29-11.43)
[2025-03-18 09:50] LABS: Lactic Sepsis W/Reflex 1.8 mmol/L (0.5-2.2)
[2025-03-18 09:56] LABS: Alanine Aminotransferase < 5 U/L (0-41); Albumin Level 3.8 g/dL (3.5-5.2); Alkaline Phosphatase 98 U/L (40-130); Anion Gap 15.6 (5-19); Aspartate Amino Transferase 9 U/L (0-40); Blood Urea Nitrogen 22 mg/dL (6-20); Calcium 9.0 mg/dL (8.5-10.5); Carbon Dioxide 21 mmol/L (22-29); Chloride 107 mmol/L (98-107); Creatinine Clr Calc Pharmacy 56.1100; Globulin 1.4 g/dL (1.3-4.6); Glucose 107 mg/dL (65-115); Osmolality Calculated 294 mOsm/kg (285-295); Potassium 3.6 mmol/L (3.5-5.1); Sodium 140 mmol/L (136-145); Total Protein 5.2 g/dL (6.6-8.7)
== END 2025-03-18 10:31 | disposition home or self-care (01) ==
PROVIDERS: Emergency Provider Family Medicine; PCP Family Medicine
DX: L03.114 Cellulitis of left upper limb (principal); Z87.891 Personal history of nicotine dependence; E78.5 Hyperlipidemia, unspecified; I12.0 Hypertensive chronic kidney disease with stage 5 chronic kidney disease or end stage renal disease; N18.6 End stage renal disease
CPT/HCPCS: 36415; 80053; 83605; 85025; 87040; 93005; 93971; 99284

== ENCOUNTER 2025-04-29 12:10 | Emergency (ER) | payer OTHER, MEDICARE, SELFPAY ==
--- OUTSIDE RECORDS SUMMARY | 2025-04-15 03:40 | XMS_ITS ---
Author Organization [facility] Address [address] [place] [address] Care Team Providers Care Employment Interviewer Name Role Phone Lilian Sanchez Primary Care Provider Unavail able Iron Colvin Unavailable [phone] Landy Goodson Unavailable [phone] REASON FOR VISIT 5 week f/u pt [...] Risk Notes Problem Lumbosacral spondylosis without myelopathy (97102206) Other spondylosis with radiculopathy, lumbar region (M47.26) Active confirmed Encounters Encounter Location Date Provider Diagnosis [facility] [address] [address] [place] [address] 04/15/2025 Landy Goodson Chronic pain syndrom e G89.4 ; Cervical spondylosis M47.812 ; Multilevel thoracic spondylosis without myelopathy M47.814 ; Other spondylosis with radiculopathy, lumbar region M47.26 ; Abnormality of gait and mobility R26.9 ; meterman (current) use of opiate analgesic Z79.891 ; [...] gait and mobility (ICD-10 - R26.9) 04/15/2025 half-way (current) use of opiate analgesic (ICD-10 - Z79.891) 04/15/2025 History of renal transplant (ICD-10 - Z94.0) 04/15/2025 Lumbar spondylosis (ICD-10 - M47.816) 04/15/2025 Depression screen (ICD-10 - Z13.31) 04/15/2025 Lumbar radiculopathy (ICD-10 - M54.16) Plan Of Treatment Next Appt Details Provider Name:Landy Anthony alex, 06/03/2025 03:00:00 PM, [address] [place], [address], History and Physical Notes * HPI (History [...] ___ Last Urine Drug Screen 03/10/2025 confir [facility] Today's Rapid Urine Drug Screen [facility] Prescription Monitoring Program ___ , [place] PDMP, found to be consistent with treatment history, reviewed today Treatment History Test undergone in the past ___ , 10/2024 Lumbar MRI04/14/2020 Thoracic MRI Past medication you have taken Hydromorp bladimir 4 mg #120 Treatments you have had ___ , None Ipma Progress Notes * Mark BANDA DDOB:04/1965 (59 yo M)Acc No.[id number]:04/15/2025 Progress Notes Patient: Jaron paigeMark Provider: ALICIA Toussaint :1965 A ge:59 Y S ex:Male Date:04/15/2025 Address:[address] [place], [place] [id number] Pcp:Lilian L Anish, FRONT OFFICE ASSISTANT-B Subjective: * Chief Complaints: * 5 week [...] Today's Rapid Urine Drug Screen c up. [place] Prescription Monitoring Program _ __ , [place] [...] Orders: L ab:Urine Confirmation Panel (instrument) - [id number] (Order Date - 03/10/2025) (Collection Date & [...] ng/mL Pregabalin 0 <225 - ng/mL Gabapentin >12132 > <225 - ng/mL Benzoylecgonine 0.0 <37.5 [...] Electronic signature of Linda Goodson APRN on 04/29/2025 at 12:17 PM CDT Sign off status: Pending * Provider: ALICIA Toussanit Date: 0 04/15/2025 Generated for Rick morelos/Sheldon/Ashley on: 0 04/29/2025 12:17 PM CDT
--- OUTSIDE RECORDS SUMMARY | 2025-04-21 09:00 | XMS_ITS ---
Author Organization [facility] Address [address] [place] [address] Care Team Providers Care Slitter And Rewinder Name Role Phone Lilian Sanchez Primary Care Provider Unavail Iron Dietrich Unavailable [phone] Allergies No Known Allergies REASON FOR VISIT [...] 04/21/2025 Encounters Encounter Location Date Provider Diagnosis [facility] Inter[facility] Management [place] [address] [place] [address], [place] [address] 04/21/2025 Iron Colvin Chronic pain syndrom e G89.4 ; Cervical spondylosis M47.812 ; Multilevel thoracic spondylosis without myelopathy M47.814 ; Other spondylosis with radiculopathy, lumbar region M47.26 ; Abnormality of gait and mobility R26.9 ; keno terminal operator (current) use of opiate analgesic Z79.891 ; [...] gait and mobility (ICD-10 - R26.9) 04/21/2025 detention (current) use of opiate analgesic (ICD-10 - [...] Anthony chalino, 06/03/2025 03:00:00 PM, [address] [place], [address], History and Physical Notes * HPI (History [...] 60 Last Urine Drug Screen 03/10/2025 Confir TeamPagesmigue Today's Rapid Urine Drug Screen none tod ay [place] Prescription Monitoring Program [place] PDMP[place]xy[place] 5 #5 [facility] Treatment History Test undergone in the past [...] shunt Progress Notes * Mark BANDA DDOB:04/1965 (59 yo M)Acc No.[id number]:04/21/2025 Progress Notes Patient: Joseph Monsivaisshankar Ingram Provider: Chalino Colvin D.O. 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 [place] Prescription Monitoring Program M O PDMP O xycodone 5 #5 [facility].? T reatment History: Test undergone in the [...] 6 Weeks Billing Information: * Visit Code: 68020 Office Visit, Est Pt., Level 4. * Procedure Codes: Care Plan Details* * Electronic signature of Iron Colvin DO on 04/29/2025 at 12:17 PM CDT Sign off status: Pending * Provider: Chalino Colvin D.O. Date: 0 04/21/2025 Generated for Rcik morelos/Sheldon/Lisaitting on: 0 04/29/2025 12:17 PM CDT
--- OUTSIDE RECORDS SUMMARY | 2025-04-29 12:17 | XMS_ITS | Clinical Summary ---
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
--- OUTSIDE RECORDS SUMMARY | 2025-04-29 12:17 | XMS_ITS | Encounter Summary ---
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
--- OUTSIDE RECORDS SUMMARY | 2025-04-29 12:17 | XMS_ITS | Encounter Summary ---
Author Organization [facility] Address [address] [place] [address] Care Team Providers Care Medicare Nurse Name Role Phone Unavailable Primary Care Provider Unavailabl e Encounter Details Date Type Department Care Team (Late st Contact Info) Description 2004 Outpatient Historical [facility] [address] [place] [address] [place] [address] [facility] [address] [place], [place] [id number] MYALGIA AND MYOSITIS NOS (Primary Dx) Social [...]
--- OUTSIDE RECORDS SUMMARY | 2025-04-29 12:17 | XMS_ITS | Encounter Summary ---
Author Organization 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
--- OUTSIDE RECORDS SUMMARY | 2025-04-29 12:17 | XMS_ITS | Encounter Summary ---
Author Organization [facility] Address [address] [place] [address] Care Team Providers Care Cvt Rn Name Role Phone Unavailable Primary Care Provider Unavailabl e Encounter Details Date Type Department Care Team (Late st Contact Info) Description 03/02/2024 Lab Requisition [facility] Laboratory Services [address] [place] [address] 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 us External Provider [facility] URINE ORDERABLES Final Res ult [facility] # [id number] [facility] [place] [address] documented in this encounter Visit Diagnoses Not on filedocumented in this encounter
--- OUTSIDE RECORDS SUMMARY | 2025-04-29 12:17 | XMS_ITS | Encounter Summary ---
Author Organization [facility] Address [address] [place] [address] Care Team Providers Care Admitting Officer Name Role Phone Unavailable Primary Care Provider Unavailabl e Encounter Details Date Type Department Care Team (Latest Contact Info) Description 06/02/2004 [facility] [address] 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
--- OUTSIDE RECORDS SUMMARY | 2025-04-29 12:17 | XMS_ITS | Encounter Summary ---
Author Organization [facility] Address [address] [place] [address] Care Team Providers Care Copying Machine Mechanic Name Role Phone Unavailable Primary Care Provider Unavailabl e Encounter Details Date Type Department Care Team (Latest Contact Info) Description 06/11/2005 Outpatient Historical [facility] [address] 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
--- OUTSIDE RECORDS SUMMARY | 2025-04-29 12:17 | XMS_ITS | Encounter Summary ---
Author Organization [facility] Address [address] [place] [address] Care Team Providers Care Ecommerce Marketing Specialist Name Role Phone Unavailable Primary Care Provider Unavailabl e Encounter Details Date Type Department Care Team (Late st Contact Info) Description 03/03/2024 Lab Requisition [facility] Laboratory Services [address] [place] [address] [facility], External Provider [address] [place] [address] Social History Tobacco Use Types Packs/Day Years Used Date Smoking Tobacco: Never Assessed Sex and Gender Information Value Date Recorded Sex Assigned at Not on file Legal 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 Male 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 OF 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 Gender Identity Not on file Sexual Orientation Not on file documented as of this encounter Plan of Treatment Not on file documented as of this encounter Procedures Procedure Name Priority Date/Time Associated Diagnosis Comments OSMOLALITY Stat 03/03/2024 1:30 AM CDT documented in this encounter Results * OSMOLALITY (03/03/2024 1:30 AM CDT) OSMOLALITY 281 275 - 295 mOsm/kg 03/03/2024 3:43 AM CDT [facility] Blood Collection / Unknown 03/03/2024 1:30 AM CDT 03/03/2024 3:20 AM CDT us External Provider [facility] CHEMISTRY ORDERABLES Final Result [facility] [employer] [facility] CLIA # [id number] [address] [address] documented in this encounter Visit Diagnoses Not on filedocumented in this encounter
--- OUTSIDE RECORDS SUMMARY | 2025-04-29 12:17 | XMS_ITS | Clinical Summary ---
Author Organization [facility] Address [address] 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
--- OUTSIDE RECORDS SUMMARY | 2025-04-29 12:17 | XMS_ITS | Encounter Summary ---
Author Organization [facility] Address [address] [place] [address] Care Team Providers Care Laundry Tech Name Role Phone Unavailable Primary Care Provider Unavailabl e Encounter Details Date Type Department Care Team (Late st Contact Info) Description 2004 Outpatient Historical [facility] [address] [place] [address] [address] [place] [address] [facility] [address] [place], [place] [id number] JOINT PAIN-MULT JTS (Primary Dx) Social History Tobacco Use Types Packs/Day Years Used Date Smoking Tobacco: Never Assessed Sex and Gender Information Value Date Recorded Sex Assigned at Not on file 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
--- OUTSIDE RECORDS SUMMARY | 2025-04-29 12:17 | XMS_ITS | Encounter Summary ---
Author Organization [facility] Address [address] [place] [address] Care Team Providers Care Predatory Animal Exterminator Name Role Phone Unavailable Primary Care Provider Unavailabl e Encounter Details Date Type Department Care Team (Latest Contact Info) Description 2003 Outpatient Historical [facility] General Surgery [address] [address] [address] [place] [address] [place] [address] [facility] [address] [place] [address] ABDOMINAL PAIN OTHER SPEC SITE (Primary Dx) Social History Tobacco Use Types Packs/Day Years Used Date Smoking Tobacco: Never Assessed Sex and Gender Information Value Date Recorded Sex Assigned at Not on file 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
--- OUTSIDE RECORDS SUMMARY | 2025-04-29 12:17 | XMS_ITS | Patient Health Record ---
Author Organization [facility] Address [address] [place] [address] Care Team Providers Care Ruby Software Developer Name Role Phone Lilian Sanchez Primary Care Provider Unavail able Iron Colvin Unavailable [phone] Landy Goodson Unavailable [phone] Allergies No Known Allergies Results Component Value Reference Range Flag Notes Tox Results Reviewed date:03/19/2025 04:34:53 PM Interpretation: Performing Lab: Notes/Report: Urine Confirmation Panel (in strument) - [id number] Reviewed date:03/17/2025 05:23:02 PM Interpretation: Performing Lab: [...] the U.S. Food and Drug Administration. Gabapentin >01707 <225 ng/mL > This test was developed [...] Administration. Urine Drug Screen (cup read) - [id number] Reviewed date:03/10/2025 09:20:39 AM Interpretation: Performing Lab: Notes/Report: OPI + Reason For Referral Reason chronic low back abril n Diagnosis 1 Chronic pain syndrom e (G89.4) Referring Provider First Name Rik Referring Provider Last Name Macario Referring Provider Speciality Family Med icine Referred Organization [facility] Referred Provider Iron Colvin Referred Address [address],[facility],[address] Referred Provider Specialty Intervention al Pain Medicine General Notes Diana Joanna Salmeron 02:31:59 PM >atc pt, no answer, lvm to call [facility], Diana Joanna Salmeron 12/24/2024 02:38:59 PM >mailed npp, scheduled pt Referral Priority Routine Medications Medication SIG (Take, Route, Frequency, Duration) Notes Start Date End Date Status DULoxetine HCl 30 MG Capsule Delayed Release Sprinkle 1 capsule Orally daily Active Empagliflozin 25 MG Tablet 1 tablet Orally daily Active Atrovent Active DULoxetine HCl 60 MG Capsule Delayed Release Sprinkle 1 capsule Orally daily Active Atorvastatin Calcium 10 MG Tablet 1 tablet Orally Once a day Active amLODIPine Besylate 5 MG Tablet 1 tablet Orally Once a day Active oxyCODONE HCl 5 MG Tablet 1 tablet as needed Orally every 6 hours As needed Active atorvastatin 10 MG Oral Tablet atorvastatin 10 MG Oral Tablet 02/05/2017 Active Myfortic 180 MG Tablet Delayed Release 1 tablet Orally Twice a day Active Acetaminophen 325 MG Capsule 2 capsule as needed Orally every 6 hours As needed Active Ondansetron 4 MG Tablet Disintegrating 1 tablet on the tongue and allow to dissolve Orally every 8 hours As needed Active HYDROmorphone HCl 4 MG Tablet 1 tablet as needed Orally every 8 hours; Duration: 30 days As needed Not to exceed 3 per day Fill 05/11/2025 04/21/2025 06/10/2025 Active Magnesium Oxide 400 MG Tablet 1 tablet with food Orally daily Active Metoprolol Tartrate 50 MG Oral Tablet Metoprolol Tartrate 50 MG Oral Tablet 04/08/2017 Active Lomotil 2.5-0.025 MG Tablet 2 tablet as needed Orally 4 times a day Active Losartan Potassium 50 MG Tablet 1 tablet Orally daily Active Hypromellose 0.5 % Solution as directed Ophthalmic twice a day Active Gabapentin 300 MG Capsule 1 capsule Orally daily Active Patiromer Sorbitex Calcium 16.8 GM Packet 1 packet dissolved in water. Take other medications at least 3 hours before or 3 hours after this medication Orally daily Active prednisoLONE Active Finasteride 5 MG Tablet 2 tablet Orally daily Active Flonase Active Pantoprazole Sodium 40 MG Tablet Delayed Release 1 tablet 1/2 to 1 hour before morning meal Orally twice a day Active FiberCon 625 MG Tablet 1 tablet as needed Orally daily Active Filgrastim 480 MCG/1.6ML Solution as directed Injection daily Active Famotidine 20 MG Tablet 1 tablet Orally twice a day Active Ferrous Sulfate 325 (65 Fe) MG Tablet 1 tablet Orally daily Active Tamsulosin hydrochloride 0.4 MG Oral Capsule Tamsulosin hydrochloride 0.4 MG Oral Capsule 02/05/2017 Active Vitamin D 25 MCG (1000 UT) Tablet 1 tablet Orally daily Active Sodium Bicarbonate 650 MG Tablet as directed Orally twice a day Active Tacrolimus 1 MG Capsule as directed Orally daily Active Immunizations Vaccine Route Administration Date Status Comme nts Influenza (whole), CPT 43941 Inactive Unknown 07/10/2017 Administered Social History Tobacco [...] Status Risk Notes Problem Chronic pain syndrome (330314989) Chronic pain syndrome (G89.4) Active confirmed Problem Lumbosacral spondylosis without myelopathy (11896333) Other spondylosis with radiculopathy, lumbar region (M47.26) Active confirmed Problem Cervicalgia (12991221) Cervicalgia (M54.2) Active confirmed Problem Lumbar radiculopathy (299720737) Lumbar radiculopathy (M54.16) Active confirmed Problem Lumbar spondylosis (173153224) Lumbar spondylosis (M47.816) Active confirmed Problem Cervical spondylosis (280460387) Cervical spondylosis (M47.812) Active confirmed Problem Abnormal gait (47636066) Abnormality of gait and mobility (R26.9) Active confirmed Problem History of renal transplant (720844188) History of renal transplant (Z94.0) Active confirmed Problem Degeneration of cervical intervertebral disc (13738317) Degeneration, intervertebral disc, 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) Active confirmed Problem Thoracic spondylosis without myelopathy (270279264) 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) Active confirmed Vital Signs Height-cm 182.88 cm 04/21/2025 Weight-kg 84.37 kg 04/21/2025 Height 72 in 04/21/2025 Weight 186 lbs 04/21/2025 BMI 25.22 kg/m2 04/21/2025 Encounters Encounter Location Date Provider Diagnosis [facility] [place] [address] [place] [address] 04/21/2025 Iron Colvin Chronic pain syndrom e G89.4 ; Cervical spondylosis M47.812 ; Multilevel thoracic spondylosis without myelopathy M47.814 ; Other spondylosis with radiculopathy, lumbar region M47.26 ; Abnormality of gait and mobility R26.9 ; halfway (current) use of opiate analgesic Z79.891 ; History of renal transplant Z94.0 ; Lumbar spondylosis M47.816 ; Depression screen Z13.31 and Lumbar radiculopathy M54.16 [facility] [place] [address] [place] [address] 02/10/2025 Iron Colvin Chronic pain syndrom e G89.4 ; Abnormality of gait and mobility R26.9 ; Cervical spondylosis M47.812 ; Lumbar radiculopathy M54.16 ; termite inspector (current) use of opiate analgesic Z79.891 ; History of renal transplant Z94.0 ; Lumbar spondylosis M47.816 and Multilevel thoracic spondylosis without myelopathy M47.814 [facility] [place] [address] [place] [address] 03/10/2025 Iron Colvin Chronic pain syndrom e G89.4 ; Cervical spondylosis M47.812 ; Multilevel thoracic spondylosis without myelopathy M47.814 ; Other spondylosis with radiculopathy, lumbar region M47.26 ; Abnormality of gait and mobility R26.9 ; halfway (current) use of opiate analgesic Z79.891 ; [...] getting admitted to the hospital twice in [place], where his renal team is, and he [...] accordingly. 03/10/2025 Cervical spondylosis (ICD-10 - M47.812) 04/21/2025 Chronic pain syndrome (ICD-10 - G89.4) I had a nice visit with the patient today regarding his chronic pain issues. He was recently hospitalized for nephrology-relate d problems, which now appear to be stable. [...] appropriate. 04/21/2025 Cervical spondylosis (ICD-10 - M47.812) 03/10/2025 Multilevel thoracic spondylosis without myelopathy (ICD-10 - M47.814) 02/10/2025 Cervical spondylosis (ICD-10 - M47.812) 02/10/2025 Lumbar radiculopathy (ICD-10 - M54.16) 03/10/2025 Other spondylosis with radiculopathy, lumbar region (ICD-10 - M47.26) 04/21/2025 Multilevel thoracic spondylosis without myelopathy (ICD-10 - M47.814) 04/21/2025 Other spondylosis with radiculopathy, lumbar region (ICD-10 - M47.26) 03/10/2025 Abnormality of gait and mobility (ICD-10 - R26.9) 02/10/2025 halfway (current) use of opiate analgesic (ICD-10 - Z79.891) 02/10/2025 History of renal transplant (ICD-10 - Z94.0) 03/10/2025 halfway (current) use of opiate analgesic (ICD-10 - [...] to abide by our urine testing policy. 04/21/2025 Abnormality of gait and mobility (ICD-10 - R26.9) 04/21/2025 termite inspector (current) use of opiate analgesic (ICD-10 - Z79.891) 03/10/2025 History of renal transplant (ICD-10 - Z94.0) 02/10/2025 Lumbar spondylosis (ICD-10 - M47.816) 02/10/2025 Multilevel thoracic spondylosis without myelopathy (ICD-10 - M47.814) 03/10/2025 Lumbar spondylosis (ICD-10 - M47.816) 04/21/2025 History of renal transplant (ICD-10 - Z94.0) 04/21/2025 Lumbar spondylosis (ICD-10 - M47.816) 03/10/2025 Depression screen (ICD-10 - Z13.31) 03/10/2025 Lumbar radiculopathy (ICD-10 - M54.16) 04/21/2025 Depression screen (ICD-10 - Z13.31) 04/21/2025 Lumbar radiculopathy (ICD-10 - M54.16) 04/21/2025 Other I, Maddy Patiño, am scribing for Dr. Iron Colvin. I, Dr. Iron Colvin, personally performed the services described in this documentation, as scribed by Maddy Patiño, and it is both accurate and complete. 02/10/2025 Other Nannette Alcala NCMA, am scribing for Dr. Iron Colvin. I, Dr. Iron Colvin, personally performed the services described in this documentation, as scribed by JUAN ANTONIO Underwood, and it is both accurate and complete. 03/10/2025 Other Nannette Alcala NCMA, am scribing for Dr. Iron Colvin. I, Dr. Iron Colvin, personally performed the services described in this documentation, as scribed by JUAN ANTONIO Underwood, and it is both accurate and complete. Plan Of Treatment Next Appt Details Provider Name:Landy johnson, 06/03/2025 03:00:00 PM, [address] [place], [address], Insurance Providers Payer Name Payer Address Payer Phone Subscriber Number Group Number Insured Name Patient Relationship to Insured Coverage Start Date Coverage End Date [place] [address] [place] [address] [id number] Mark Mccabe Self - patient is the insured [employer] - Out of Network [address] [address] [place] [address] [id number] Mark Mccabe Self - patient is the insured [facility] [employer] [address] [place] [address] [id number] Mark Mccabe Self - patient is the [...] Status :: Active Problem:Nephrotic range proteinuria (fin eliane) , Status :: Active Problem:Obesity (disorder) , [...]
--- OUTSIDE RECORDS SUMMARY | 2025-04-29 12:17 | XMS_ITS | Encounter Summary ---
Author Organization [facility] Address [address] [place] [address] Care Team Providers Care Tack Cutter Name Role Phone Unavailable Primary Care Provider Unavailabl e Encounter Details Date Type Department Care Team (Latest Contact Info) Description 06/02/2004 Outpatient Historical [facility] [address] [place] [address] [facility] [address] [place] [address] Alejandro Guevara MD [address] [facility] [address] [place] [address] JOINT PAIN-MULT JTS (Primary Dx) Social History Tobacco Use Types Packs/Day Years Used Date Smoking Tobacco: Never Assessed Sex and Gender Information Value Date Recorded Sex Assigned at Not on file Legal 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
--- OUTSIDE RECORDS SUMMARY | 2025-04-29 12:17 | XMS_ITS | Encounter Summary ---
Author Organization [facility] Address 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
--- OUTSIDE RECORDS SUMMARY | 2025-04-29 12:17 | XMS_ITS | Encounter Summary ---
Author Organization [facility] Address [address] [place] [address] Care Team Providers Care Business Machine Operator Name Role Phone Unavailable Primary Care Provider Unavailabl e Encounter Details Date Type Department Care Team (Latest Contact Info) Description 06/16/2004 Outpatient Historical [facility] [address] [facility] [address] [place] [address] Alejandro Guevara MD [address] [facility] [address] [place] [address] CERVICALGIA (Primary Dx) Social History Tobacco Use Types Packs/Day Years Used Date Smoking Tobacco: Never Assessed Sex and Gender Information Value Date Recorded Sex Assigned at Not on file 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
--- OUTSIDE RECORDS SUMMARY | 2025-04-29 12:17 | XMS_ITS | Encounter Summary ---
Author Organization [facility] Address [address] [place] [address] Care Team Providers Care Material Handler Floorperson Name Role Phone Unavailable Primary Care Provider Unavailabl e Encounter Details Date Type Department Care Team (Latest Contact Info) Description 06/07/2004 Outpatient Historical [facility] [address] [place] [address] Alejandro Guevara MD [address] [phone] JOINT DIS NOS-SHLDER (Primary Dx) Social History Tobacco Use Types Packs/Day Years Used Date Smoking Tobacco: Never Assessed Sex and Gender Information Value Date Recorded Sex Assigned at Not on file Legal Sex Male 3:00 AM RESEARCH AIDE Gender Identity Not on file Sexual Orientation Not on file documented as of this encounter Plan of Treatment Not on file documented as of this encounter Visit Diagnoses Diagnosis Unspecified disorder of shoulder joint- Primary documented in this encounter
--- OUTSIDE RECORDS SUMMARY | 2025-04-29 12:17 | XMS_ITS | Encounter Summary ---
Author Organization [facility] Address [address] [place] [address] Care Team Providers Care Analysis Tester Name Role Phone Unavailable Primary Care Provider Unavailabl e Encounter Details Date Type Department Care Team (Latest Contact Info) Description 06/16/2004 Outpatient Historical [facility] [address] 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
--- OUTSIDE RECORDS SUMMARY | 2025-04-29 12:17 | XMS_ITS | Encounter Summary ---
Author Organization [facility] Address [address] [place] [address] Care Team Providers Care Finish Filer Name Role Phone Unavailable Primary Care Provider Unavailabl e Encounter Details Date Type Department Care Team (Latest Contact Info) Description 06/11/[address] [facility] [address] [facility] [address] [place] [id number] Alejandro Guevara MD [address] [facility] [address] [place] [phone] LUMB/LUMBOSAC DISC DEGEN (Primary Dx) Social History Tobacco Use Types Packs/Day Years Used Date Smoking Tobacco: Never Assessed Sex and Gender Information Value Date Recorded Sex Assigned at Not on file Legal Sex Male 3:00 AM TRANSACTION ADVISORY SERVICES MANAGER Gender Identity Not on file Sexual Orientation Not on file documented as of this encounter Plan of Treatment Not on file documented as of this encounter Visit Diagnoses Diagnosis Degeneration of lumbar or lumbosacral intervertebral disc- Primary documented in this encounter
[2025-04-29 12:19] VITALS: BP 75/50; PULSE 84; RESP 20; TEMP 36.4; O2SAT 100; BMI 27.1
--- NOTE | 2025-04-29 12:26 | CT_ITS ---
WS: [id number] CT CHEST ANGIOGRAPHY WITH REFORMATS HISTORY: sob TECHNIQUE: Contiguous axial images are obtained through the chest during arterial injection of intravenous contrast. Images are reconstructed to evaluate the pulmonary arteries. MIP imaging also reviewed. All CT scans at [facility] use at least one of these dose optimization techniques: automated exposure control; mA and/or kV adjustment per patient size (includes targeted exams where dose is matched to clinical indication); or iterative reconstruction. CONTRAST: Omnipaque 350; 100 mL IV. DLP: 371.54 mGy.cm COMPARISON: 07/03/2024 Good opacification of the pulmonary arteries. No pulmonary emboli are identified. Pulmonary artery is dilated measuring 3.8 cm. Mildly ectatic atherosclerosis thoracic aorta. Mild ectasia ascending aorta to 4.1 cm. No RIGHT heart strain. Mild LEFT ventricular enlargement. There is also tricuspid regurg itation into the hepatic veins. No mediastinal or hilar adenopathy. Curvilinear opacifications in the RIGHT upper lobe. There is mild hazy attenuation also scattered in the RIGHT upper lobe and extending into the RIGHT middle and RIGHT lower lobes. The more focal nodule seen on the prior CT of 07/03/2024 has resolved. No areas of dense consolidation. 4 mm noncalcified n odules LEFT lower lobe are unchanged. There are a few scattered granulomata. No adrenal mass. Prior cholecystectomy. Mild pancreatic atrophy. Bilateral gynecomastia, LEFT greater than RIGHT. CT/CT angio chest PE protcl [id number] IMPRESSION: 1. No pulmonary embolism. 2. Multifocal RIGHT lung opacifications. Likely pneumonitis or hypersensitivit y pneumonia. The previously described more dense consolidation in the LEFT uppe r lobe has resolved. 3. Additional small stable noncalcified 4 mm pulmonary nodules LEFT lower lobe and scattered granulomata. 4. No mediastinal or hilar adenopathy. 5. No RIGHT heart strain. 6. Dilated pulmonary artery. 7. Prior cholecystectomy.
--- NOTE | 2025-04-29 12:26 | XR_ITS ---
WS: [id number] Portable AP upright chest, 04/29/2025 Clinical Data: Possible Sepsis Comparison: Portable chest, 09/05/2024 Findings: No nodules, masses or effusions are seen. The heart is normal. The pulmonary vascularity is not increased. No pneumonia or pneumothorax is seen. The diaphragms are flattened. The aortic arch and descending thoracic aorta show mild tortuosity. There is osteoarthritis of the left glenohumeral joint. XR/XR chest 1V portable [id number] Impression: Atherosclerosis.
--- NOTE | 2025-04-29 12:30 | CT_ITS ---
WS: [id number] CT HEAD NONCONTRAST HISTORY: dizzy TECHNIQUE: Contiguous axial imaging performed through the brain. Bone and soft tissue windows. Sagittal and coronal reformats reviewed. All CT scans at [facility] use at least one of these dose optimization techniques: automated exposure control; mA and/or kV adjustment per patient size (includes targeted exams where dose is matched to clinical indication); or iterative reconstruction. DLP: 1084.23 mGy.cm COMPARISON: 07/18/2018 No acute intracranial hemorrhage, midline shift or mass effect. Moderate atrophy is similar to prior studies. There is a tiny lacunar infarct in the RIGHT basal ganglia which is stable. No new infarct. Mild cerebellar atrophy. Ventricles: Normal size with no hydrocephalus. No inferior displacement of the cerebellar tonsils. Paranasal sinuses: As visualized are clear. Mastoid air cells: Well pneumatized. Calvarium and scalp: Skull is intact with no soft tissue edema or swelling. CT/CT head wo con* [id number] IMPRESSION: 1. No acute intracranial hemorrhage or edema. 2. Moderate cerebral and cerebellar atrophy with mild small vessel disease. 3. Prior RIGHT basal ganglia lacunar infarct.
--- NOTE | 2025-04-29 12:32 | W.ED.RECABL ---
HPI - Recheck/Abnormal Lab/Rx General: Chief Complaint: Recheck/Abnormal Lab/Rx Stated Complaint: Low bp, dizzy, fall and headach Time Seen by Provider: 04/29/25 12:21 Source: patient and family Mode of arrival: ambulatory Limitations: no limitations History of Present Illness: 59-year-old male with multiple medical issues has a history of A-fib along with having a kidney transplant he states he does receive receive dialysis on Saturday. States that he gets plasmapheresis for his dialysis at [place]. States that today has been feeling weak and dizzy checked his blood pressure states it been running in the 70s and 80s. Patient's had history of low blood pressure in the past he is also had history of sepsis he denies any fever he states has had some lightheadedness and has had some slight dyspnea denies any dysuria or cough Related Data Home Medications ?Medication ?Instructions ?Recorded ?Confirmed cholecalciferol (vitamin D3) 25 25 mcg PO QAM 01/14/20 03/18/25 mcg (1,000 unit) capsule fluticasone propionate 50 2 spray intranasal DAILY PRN 01/14/20 03/18/25 mcg/actuation nasal Allergy Symptoms spray,suspension tamsulosin 0.4 mg capsule 0.4 mg PO QAM 01/14/20 03/18/25 atorvastatin 10 mg tablet 10 mg PO BEDTIME 02/13/21 03/18/25 famotidine 20 mg tablet 20 mg PO BID 07/11/21 03/18/25 hydromorphone 4 mg tablet 4 mg PO Q4H PRN Pain 07/11/21 03/18/25 diphenoxylate-atropine 2.5 2 tab PO QID PRN Diarrhea 01/16/22 03/18/25 mg-0.025 mg tablet prednisone 5 mg tablet 5 mg PO QAM 01/16/22 03/18/25 acetaminophen 325 mg capsule 650 mg PO Q4H PRN Pain 03/20/22 03/18/25 artificial tears(hypromellose) 0.3 1 drp ophthalmic (eye) DAILY PRN 03/13/23 03/18/25 % eye drops Itching losartan 50 mg tablet 25 mg PO DAILY 03/13/23 03/18/25 patiromer calcium sorbitex 16.8 See Rx Instructions .Route 03/13/23 03/18/25 gram oral powder packet (Veltassa) .COMPLEX PRN Hyperkalemia empagliflozin 25 mg tablet 25 mg PO QAM 06/06/23 03/18/25 (Jardiance) ferrous sulfate 325 mg (65 mg 325 mg PO QAM 08/08/23 03/18/25 iron) tablet filgrastim 480 mcg/1.6 mL 480 mcg SUBCUT DAILY PRN UNKNOWN 08/08/23 03/18/25 injection solution (Neupogen) finasteride 5 mg tablet 10 mg PO QAM 12/11/23 03/18/25 ipratropium bromide 42 mcg (0.06 2 spray intranasal QID ALLERGIES 12/11/23 03/18/25 %) nasal spray mycophenolate sodium 360 mg 360 mg PO BID 12/11/23 03/18/25 tablet,delayed release calcium polycarbophil 625 mg 625 mg PO QAM 07/15/24 03/18/25 tablet (FiberCon) duloxetine 60 mg capsule,delayed 60 mg PO QAM 07/15/24 03/18/25 release gabapentin 300 mg capsule 300 mg PO QAM 07/15/24 03/18/25 megestrol 400 mg/10 mL (40 mg/mL) 400 mg PO QAM 07/15/24 03/18/25 oral suspension sodium bicarbonate 650 mg tablet 1,300 mg PO BID 07/15/24 03/18/25 duloxetine 30 mg capsule,delayed 30 mg PO BEDTIME 02/20/25 03/18/25 release metoprolol succinate 25 mg 25 mg PO QAM 02/20/25 03/18/25 tablet,extended release 24 hr ondansetron 4 mg disintegrating 4 mg PO Q8H PRN Nausea And Vomiting 02/20/25 03/18/25 tablet tacrolimus 1 mg tablet,extended 1 mg PO DAILY 02/20/25 03/18/25 release 24 hr (Envarsus XR) Previous Rx's ?Medication ?Instructions ?Recorded pantoprazole 40 mg tablet,delayed 40 mg PO BID 6 weeks #84 tabs 04/12/23 release (Protonix) doxycycline hyclate 100 mg tablet 100 mg PO BID 7 days #14 tabs 04/29/25 Allergies Allergy/AdvReac Type Severity Reaction Status Date / Time No Known Allergies Allergy Verified 08/06/24 09:03 Review of Systems Const: Reports: fatigue and malaise; Denies: fever(s), chills, body aches or change in appetite Eyes: Denies: blurry vision or eye discomfort ENMT: Denies: throat pain or dental pain Card: Denies: chest pain Resp: Reports: dyspnea GI: Denies: abdominal pain, nausea, vomiting or diarrhea Musc: Denies: neck pain or back pain Skin/Breast: Denies: rash Neuro: Denies: headache(s) 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 Carpal tunnel syndrome, bilateral upper limbs Surgical History Hx of colonoscopy less than 1 year, no polyps History of esophagogastroduodenoscopy (EGD) less than 1 year History of bilateral carpal tunnel release History of right breast biopsy for benign disease History of thoracotomy with chest tube, for pneumonia History of kidney transplant (09/2021) History of cholecystectomy History of umbilical hernia repair History of arthroscopic knee surgery x 3 History of arthroscopy of right shoulder Family History Father CAD (coronary artery disease) Chronic kidney disease (CKD) Mother Arthritis Other Diabetes Hyperlipidemia Hypertension Denies family history of Clotting disorder Dementia Psychiatric illness Suicide Anesthesia complication Bleeding disorder Lung disease Cancer Stroke Social History Smoking and tobacco/nicotine status: former use of tobacco/nicotine Alcohol intake: never Substance/Drug Use: never Household members: spouse Marital status: Current occupational status: disabled Physical Exam Const: COMMON NORMALS: patient oriented x3 HENMT: COMMON NORMALS: normocephalic and atraumatic HEAD & SCALP: normocephalic and atraumatic Eye: COMMON NORMALS: Equal, round and reactive pupils present and EOMs intact bilaterally PUPIL: Yes Equal, round and reactive pupils present Neck/C-Spine: COMMON NORMALS: full ROM and supple Chest: COMMONS NORMALS: normal inspection of the chest and normal palpation of entire chest wall Resp: COMMON NORMALS: normal respiratory effort, No retractions, No use of accessory muscles and clear to auscultation bilaterally AUSCULTATION: clear to auscultation bilaterally Cardio: COMMON NORMALS: regular rate, regular rhythm and No murmurs present (Cardio) RATE: regular rate RHYTHM: regular rhythm GI: COMMON NORMALS: Normal to inspection, nondistended, normoactive bowel sounds present, Soft to palpation, non-tender and no masses PALPATION: Yes Soft to palpation Extremity: COMMON NORMALS: normal to inspection and full ROM Neuro: COMMON NORMALS: patient oriented x3, moves all extremities and no focal motor deficits Psych: COMMON NORMALS: mental status grossly normal, Normal thought process present and cooperative THOUGHT PROCESS: Normal thought process present Skin: COMMON NORMALS: no rashes or lesions noted and no wounds GENERAL SKIN EXAM: no rashes or lesions noted Course Vital Signs: Vital signs: Vital Signs Temperature 97.5 F L 04/29/25 12:19 Pulse Rate 66 04/29/25 13:07 Respiratory Rate 20 H 04/29/25 12:19 Blood Pressure 88/64 04/29/25 13:07 Pulse Oximetry 100 04/29/25 13:07 Oxygen Delivery Me thod Room Air 04/29/25 13:07 MDM - Recheck/Abnormal Lab/Rx Medical Decision Making Patient presents here with some low blood pressure he feels much better here after a liter of fluid x-ray showed a mild pneumonia. Patient does get plasma freestyle sick cocci scheduled tomorrow I told patient I would like to admit him as he did have some low blood pressures he states he does not want to stay here because he cannot get dialysis here and he wants to be transferred to [facility] I did call [facility] and they do not have any beds patient states that he feels much improved and just wants to go home and follow-up tomorrow at [facility] informed him that if he has any worsening he is to return he understands and agrees to the plan. Medical Records I reviewed the patient's medical records. Lab Data I reviewed the patient's lab results. 04/29/25 12:44 04/29/25 12:44 Radiology Impressions Chest CTA 04/29/25 12:26 IMPRESSION: 1. No pulmonary embolism. 2. Multifocal RIGHT lung opacifications. Likely pneumonitis or hypersensitivity pneumonia. The previously described more dense consolidation in the LEFT upper lobe has resolved. 3. Additional small stable noncalcified 4 mm pulmonary nodules LEFT lower lobe and scattered granulomata. 4. No mediastinal or hilar adenopathy. 5. No RIGHT heart strain. 6. Dilated pulmonary artery. 7. Prior cholecystectomy. Chest X-Ray 04/29/25 12:26 Impression: Atherosclerosis. Head CT 04/29/25 12:30 IMPRESSION: 1. No acute intracranial hemorrhage or edema. 2. Moderate cerebral and cerebellar atrophy with mild small vessel disease. 3. Prior RIGHT basal ganglia lacunar infarct. Laboratory Results WBC 10.26 10^3/uL (3.29-11.43) 04/29/25 12:44 RBC 4.19 10^6/uL (3.85-5.65) 04/29/25 12:44 Hgb 11.30 g/dL (11.27-16.99) 04/29/25 12:44 Hct 36.9 % (37-53) L 04/29/25 12:44 MCV 88.1 fl (82-101) 04/29/25 12:44 MCH 27.0 pg (27-33) 04/29/25 12:44 MCHC 30.6 g/dL (30-55) 04/29/25 12:44 RDW 16.8 % (12.1-15.1) H 04/29/25 12:44 Plt Count 156 10^3/cmm (157-399) L 04/29/25 12:44 MPV 10.3 fL (7.4-10.4) 04/29/25 12:44 Lymph % (Auto) Not Reportable 04/29/25 12:44 Burnett % (Auto) Not Reportable 04/29/25 12:44 Lymph # (Auto) Not Reportable 04/29/25 12:44 Burnett # (Auto) Not Reportable 04/29/25 12:44 Total Counted 100 (0-100) 04/29/25 12:44 Atypical Lymphs % 1.0 % (0-5) 04/29/25 12:44 Absolute Neutrophils 9.0 10^3/cmm (1.4-6.5) H 04/29/25 12:44 Segmented Neutrophils 75 % 04/29/25 12:44 Band Neutrophils 13.0 % 04/29/25 12:44 Absolute Lymphocytes 0.7 10^3/cmm (1.2-3.4) L 04/29/25 12:44 Lymphocytes (Manual) 6 % 04/29/25 12:44 Monocytes (Manual) 3.0 % 04/29/25 12:44 Absolute Monocytes 0.3 10^3/cmm (0.1-0.6) 04/29/25 12:44 Eosinophils (Manual) 0 % 04/29/25 12:44 Absolute Eosinophils 0.0 10^3/cmm (0.0-0.7) 04/29/25 12:44 Basophils (Manual) 0.0 % 04/29/25 12:44 Absolute Basophils 0.0 10^3/cmm (0.0-0.2) 04/29/25 12:44 Myelocytes 2.0 % 04/29/25 12:44 Smudge Cells Trace 04/29/25 12:44 Platelet Estimate Decreased (Normal) 04/29/25 12:44 Giant Platelets Trace 04/29/25 12:44 Anisocytosis Trace 04/29/25 12:44 Sodium 133 mmol/L (136-145) L 04/29/25 12:44 Potassium 5.7 mmol/L (3.5-5.1) H 04/29/25 12:44 Chloride 103 mmol/L (98-107) 04/29/25 12:44 Carbon Dioxide 15 mmol/L (22-29) L 04/29/25 12:44 Anion Gap 20.7 (5-19) H 04/29/25 12:44 BUN 45 mg/dL (6-20) H 04/29/25 12:44 Creatinine 2.7 mg/dL (0.7-1.2) H 04/29/25 12:44 GFR Calculation 24.4 mL/min (90-130) L 04/29/25 12:44 Glucose 150 mg/dL (65-115) H 04/29/25 12:44 Calculated Osmolality 290 mOsm/kg (285-295) 04/29/25 12:44 Lactic Acid 2.1 mmol/L (0.5-2.2) 04/29/25 12:44 Calcium 9.3 mg/dL (8.5-10.5) 04/29/25 12:44 Magnesium 2.2 mg/dL (1.7-2.3) 04/29/25 12:44 Total Bilirubin 0.7 mg/dL (0.15-1.2) 04/29/25 12:44 AST 13 U/L (0-40) 04/29/25 12:44 ALT 18 U/L (0-41) 04/29/25 12:44 Alkaline Phosphatase 45 U/L (40-130) 04/29/25 12:44 Troponin T Baseline 46 ng/L (0-15) H 04/29/25 12:44 NT-Pro-B Natriuret Pep 1169 pg/mL (0-125) H 04/29/25 12:44 Total Protein 5.5 g/dL (6.6-8.7) L 04/29/25 12:44 Albumin 4.1 g/dL (3.5-5.2) 04/29/25 12:44 Globulin 1.4 g/dL (1.3-4.6) 04/29/25 12:44 Amorphous Sediment Not Reportable 04/29/25 14:20 All radiology interpretation(s) finalized by discharge Discharge Plan Discharge Patient Disposition: Home Clinical Impression: Weakness, Pneumonia Condition: Stable Prescriptions: New doxycycline hyclate 100 mg tablet 100 mg PO BID 7 Days Qty: 14 0RF No Action tamsulosin 0.4 mg capsule 0.4 mg PO QAM fluticasone propionate 50 mcg/actuation spray,suspension 2 spray INTRANASAL DAILY PRN (Reason: Allergy Symptoms) cholecalciferol (vitamin D3) 25 mcg (1,000 unit) capsule 25 mcg PO QAM hydromorphone 4 mg tablet 4 mg PO Q4H PRN (Reason: Pain) famotidine 20 mg tablet 20 mg PO BID Jardiance 25 mg tablet 25 mg PO QAM Rx Instructions: recently put on hold ferrous sulfate 325 mg (65 mg iron) tablet 325 mg PO QAM Neupogen 480 mcg/1.6 mL solution 480 mcg SUBCUT DAILY PRN (Reason: UNKNOWN) acetaminophen 325 mg capsule 650 mg PO Q4H PRN (Reason: Pain) atorvastatin 10 mg tablet 10 mg PO BEDTIME pantoprazole [Protonix] 40 mg tablet,delayed release (DR/EC) 40 mg PO BID 42 Days Qty: 84 1RF mycophenolate sodium 360 mg tablet,delayed release (DR/EC) 360 mg PO BID ipratropium bromide 42 mcg (0.06 %) spray,non-aerosol 2 spray INTRANASAL QID finasteride 5 mg tablet 10 mg PO QAM megestrol 400 mg/10 mL (40 mg/mL) suspension 400 mg PO QAM sodium bicarbonate 650 mg tablet 1,300 mg PO BID calcium polycarbophil [FiberCon] 625 mg Tablet 625 mg PO QAM gabapentin 300 mg capsule 300 mg PO QAM duloxetine 60 mg capsule,delayed release(DR/EC) 60 mg PO QAM Rx Instructions: Patient takes at noon and bedtime with the 30mg tab duloxetine 30 mg capsule,delayed release(DR/EC) 30 mg PO BEDTIME metoprolol succinate 25 mg tablet extended release 24 hr 25 mg PO QAM ondansetron 4 mg tablet,disintegrating 4 mg PO Q8H PRN (Reason: Nausea And Vomiting) Envarsus XR 1 mg tablet extended release 24 hr 1 mg PO DAILY prednisone 5 mg tablet 5 mg PO QAM diphenoxylate-atropine 2.5-0.025 mg tablet 2 tab PO QID PRN (Reason: Diarrhea) artificial tears(hypromellose) 0.3 % Drops 1 drp OPHTHALMIC (EYE) DAILY PRN (Reason: Itching) losartan 50 mg Tablet 25 mg PO DAILY Rx Instructions: RX is on hold as of 02/19/25 Veltassa 16.8 gram Powder In Packet See Rx Instructions .ROUTE .COMPLEX PRN (Reason: Hyperkalemia) Rx Instructions: dissolve one packet daily at noon . Discharge Orders: Discharge ED (Routine); Ordered 04/29/25 Ordered By: Tami Sparks Referrals: Rik Sorto MD [Primary Care Provider, Family Practice] Discharge Diet: Advance as tolerated Discharge Activity: Resume usual activity Patient Instructions: Weakness (ED), Pneumonia (ED) Print Language: Greenlandic Coding Level of Care Code ED Engine Specialist for Audrey Almanza
[2025-04-29 12:56] LABS: Hematocrit 36.9 % (37-53); Hemoglobin 11.30 g/dL (11.27-16.99); Mean Corpuscular HGB Conc 30.6 g/dL (30-55); Mean Corpuscular Hemoglobin 27.0 pg (27-33); Mean Corpuscular Volume 88.1 fl (82-101); Platelet Count 156 10^3/cmm (157-399); Red Blood Count 4.19 10^6/uL (3.85-5.65); White Blood Count 10.26 10^3/uL (3.29-11.43)
[2025-04-29] MEDS: iohexol 350 mg/mL 500 mL Btl (per mL) IV (12:57)
--- NOTE | 2025-04-29 13:05 | ECG_ITS ---
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 Measurements Intervals [place] Rate: 65 P: 25 SC: 180 QRS: -57 QRSD: 116 T: 129 QT: 400 QTc: 416 Interpretive Statements SINUS RHYTHM LEFT ANTERIOR FASCICULAR BLOCK [QRS AXIS <= -45, QR IN I, RS IN II] MODERATE VOLTAGE CRITERIA FOR LVH, CONSIDER NORMAL VARIANT [MEETS CRITERIA IN ONE OF: R(aVL), S(V1), R(V5), R(V5/V6)+S(V1)] POSSIBLE LATERAL MYOCARDIAL INFARCTION , OF INDETERMINATE AGE [30 ms Q WAVE IN I/aVL/V5/V6] MODERATE T-WAVE ABNORMALITY, CONSIDER INFERIOR ISCHEMIA [-0.1+ mV T-WAVE IN II/aVF] Compared to ECG 03/18/2025 09:18:55 Sinus tachycardia no longer present Left-axis deviation no longer present ST (T wave) deviation no longer present Electronically Signed On 04-30-2025 09:12:03 CDT by David Gonzales M.D. [email or web address]
[2025-04-29 13:07] VITALS: BP 88/64; PULSE 66; O2SAT 100
[2025-04-29 13:13] LABS: Lactic Sepsis W/Reflex 2.1 mmol/L (0.5-2.2)
[2025-04-29 13:21] LABS: Troponin(5th) Baseline 46 ng/L (0-15)
[2025-04-29 13:22] LABS: Slide Review Slide Review Perform
[2025-04-29 13:23] LABS: Absolute Segmented Neutrophil 7.7 10/cmm (1.6-7.1); Anisocytosis Trace; Atypical Lymphs 1.0 % (0-5); Band Neutrophils Absolute 1.3 10^3/cmm (0.0-1.2); Giant Platelets Trace; Smudge Cells Trace; Total Cells Counted 100 (0-100)
[2025-04-29 13:28] LABS: Alanine Aminotransferase 18 U/L (0-41); Albumin Level 4.1 g/dL (3.5-5.2); Alkaline Phosphatase 45 U/L (40-130); Anion Gap 20.7 (5-19); Aspartate Amino Transferase 13 U/L (0-40); Blood Urea Nitrogen 45 mg/dL (6-20); Calcium 9.3 mg/dL (8.5-10.5); Carbon Dioxide 15 mmol/L (22-29); Chloride 103 mmol/L (98-107); Creatinine Clr Calc Pharmacy 34.9458; Globulin 1.4 g/dL (1.3-4.6); Glucose 150 mg/dL (65-115); Magnesium 2.2 mg/dL (1.7-2.3); NT Pro B Type Natriuretic Pept 1169 pg/mL (0-125); Osmolality Calculated 290 mOsm/kg (285-295); Potassium 5.7 mmol/L (3.5-5.1); Sodium 133 mmol/L (136-145); Total Protein 5.5 g/dL (6.6-8.7)
[2025-04-29] MEDS: cefTRIAXone 1,000 mg SDV 1000 MG IVP (14:05)
[2025-04-29] MEDS: ondansetron 2 mg/ML SDV 2 mL 4 MG IVP (14:22)
[2025-04-29 14:36] LABS: Reflex Lactate Order REFLEX LACTIC ORDERD
[2025-04-29 15:33] LABS: Glucose Urine UA 1+ (Normal); Nitrate Urine Negative (Negative); Specific Gravity, Urine 1.029 (1.005-1.030)
[2025-04-29 15:35] VITALS: BP 99/72; PULSE 76; O2SAT 95
[2025-04-29 15:37] LABS: Add Urine Microscopic? YES
[2025-04-29 15:48] LABS: Troponin 5 2HR 34.02 ng/L (0-15)
[2025-04-29 15:50] LABS: Troponin 5 2HR Delta -11.98 ABS# (0-10)
[2025-04-29 15:51] LABS: Lactic Acid level (Lactate) 2.3 mmol/L (0.5-2.2)
== END 2025-04-29 15:38 | disposition home or self-care (01) ==
PROVIDERS: Emergency Provider Emergency Medicine; PCP Family Medicine
DX: R53.1 Weakness (principal); J18.9 Pneumonia, unspecified organism; Z87.891 Personal history of nicotine dependence; E78.5 Hyperlipidemia, unspecified; I12.0 Hypertensive chronic kidney disease with stage 5 chronic kidney disease or end stage renal disease; N18.6 End stage renal disease
CPT/HCPCS: 36415; 70450; 71045; 71275; 80053; 81001; 83605; 83735; 83880; 84484; 85007; 85025; 87040; 93005; 96361; 96374; 96375; 99285; J0456; J0696; J2405; J7040; J7050

== ENCOUNTER 2025-05-04 09:32 | Inpatient (IN) | payer OTHER, MEDICARE, SELFPAY ==
--- OUTSIDE RECORDS SUMMARY | 2025-04-15 03:40 | XMS_ITS ---
Author Organization [facility] Address [address] [place] [address] Care Team Providers Care Hotel General Manager Name Role Phone Lilian Sanchez Primary Care Provider Unavail able Iron Colvin Unavailable [phone] Landy Goodson Unavailable [phone] REASON FOR VISIT 5 week f/u pt [...] Risk Notes Problem Lumbosacral spondylosis without myelopathy (17124179) Other spondylosis with radiculopathy, lumbar region (M47.26) Active confirmed Encounters Encounter Location Date Provider Diagnosis [facility] Inter[facility] [address] [place] [address] 04/15/2025 Landy Goodson Chronic pain syndrom e [...] gait and mobility (ICD-10 - R26.9) 04/15/2025 senior living (current) use of opiate analgesic (ICD-10 - Z79.891) 04/15/2025 History of renal transplant (ICD-10 - Z94.0) 04/15/2025 Lumbar spondylosis (ICD-10 - M47.816) 04/15/2025 Depression screen (ICD-10 - Z13.31) 04/15/2025 Lumbar radiculopathy (ICD-10 - M54.16) Plan Of Treatment Next Appt Details Provider Name:Landy Anthony alex, 06/03/2025 03:00:00 PM, [address] [place], [address], History and Physical Notes * HPI (History [...] ___ Last Urine Drug Screen 03/10/2025 confir [facility] Today's Rapid Urine Drug Screen [facility] Prescription Monitoring Program ___ , [place] PDMP, found to be consistent with treatment history, reviewed today Treatment History Test undergone in the past ___ , 10/2024 Lumbar MRI04/14/2020 Thoracic MRI Past medication you have taken Hydromorp bladimir 4 mg #120 Treatments you have had ___ , None Ipma Progress Notes * Mark BANDA DDOB:04/1965 (60 yo M)Acc No.[id number]:04/15/2025 Progress Notes Patient: Jaron paigeMark Provider: ALICIA Toussaint :1965 A ge:59 Y S ex:Male Date:04/15/2025 Address:[address] [place], [place] [id number] Pcp:Lilian L Anish, SENIOR ANIMATOR-B Subjective: * Chief Complaints: * 5 week [...] Today's Rapid Urine Drug Screen c up. [place] Prescription Monitoring Program _ __ , [place] [...] Orders: L ab:Urine Confirmation Panel (instrument) - [id number] (Order Date - 03/10/2025) (Collection Date & [...] ng/mL Pregabalin 0 <225 - ng/mL Gabapentin >76098 > <225 - ng/mL Benzoylecgonine 0.0 <37.5 [...] Electronic signature of Linda Goodson APRN on 2025 at 09:48 AM CDT Sign off status: Pending * Provider: ALICIA Toussaint Date: 0 04/15/2025 Generated for Rick morelos/Sheldon/Ashley on: 0 2025 09:48 AM CDT
--- OUTSIDE RECORDS SUMMARY | 2025-04-21 09:00 | XMS_ITS ---
Author Organization [facility] Address [address] [place] [address] Care Team Providers Care Polisher Numeral Name Role Phone Lilian Sanchez Primary Care Provider Unavail Iron Dietrich Unavailable [phone] Allergies No Known Allergies REASON FOR VISIT 1 month f/u Medications Medication SIG (Take, Route, Frequency, Duration) Notes Start Date End Date Status Tamsulosin hydrochloride 0.4 MG Oral Capsule Tamsulosin hydrochloride 0.4 MG Oral Capsule 02/05/2017 Active Vitamin D 25 MCG (1000 UT) Tablet 1 tablet Orally daily Active Sodium Bicarbonate 650 MG Tablet as directed Orally twice a day Active Tacrolimus 1 MG Capsule as directed Orally daily Active Patiromer Sorbitex Calcium 16.8 GM Packet 1 packet dissolved in water. Take other medications at least 3 hours before or 3 hours after this medication Orally daily Active prednisoLONE Active oxyCODONE HCl 5 MG Tablet 1 tablet as needed Orally every 6 hours As needed Active Pantoprazole Sodium 40 MG Tablet Delayed Release 1 tablet 1/2 to 1 hour before morning meal Orally twice a day Active Ondansetron 4 MG Tablet Disintegrating 1 tablet on the tongue and allow to dissolve Orally every 8 hours As needed Active Myfortic 180 MG Tablet Delayed Release 1 tablet Orally Twice a day Active Magnesium Oxide 400 MG Tablet 1 tablet with food Orally daily Active Metoprolol Tartrate 50 MG Oral Tablet Metoprolol Tartrate 50 MG Oral Tablet 04/08/2017 Active Lomotil 2.5-0.025 MG Tablet 2 tablet as needed Orally 4 times a day Active Losartan Potassium 50 MG Tablet 1 tablet Orally daily Active Finasteride 5 MG Tablet 2 tablet Orally daily Active Flonase Active Filgrastim 480 MCG/1.6ML Solution as directed Injection daily Active Hypromellose 0.5 % Solution as directed Ophthalmic twice a day Active Gabapentin 300 MG Capsule 1 capsule Orally daily Active FiberCon 625 MG Tablet 1 tablet as needed Orally daily Active Famotidine 20 MG Tablet 1 tablet Orally twice a day Active Ferrous Sulfate 325 (65 Fe) MG Tablet 1 tablet Orally daily Active DULoxetine HCl 30 MG Capsule Delayed Release Sprinkle 1 capsule Orally daily Active Empagliflozin 25 MG Tablet 1 tablet Orally daily Active Atorvastatin Calcium 10 MG Tablet 1 tablet Orally Once a day Active amLODIPine Besylate 5 MG Tablet 1 tablet Orally Once a day Active atorvastatin 10 MG Oral Tablet atorvastatin 10 MG Oral Tablet 02/05/2017 Active Atrovent Active DULoxetine HCl 60 MG Capsule Delayed Release Sprinkle 1 capsule Orally daily Active Acetaminophen 325 MG Capsule 2 capsule as needed Orally every 6 hours As needed Active HYDROmorphone HCl 4 MG Tablet 1 tablet as needed Orally every 8 hours; Duration: 30 days As needed Not to exceed 3 per day Fill 05/11/2025 04/21/2025 06/10/2025 Active Social History Tobacco Use: Social History [...] taking medications for menta l health reasons Vital Signs Height 72 in 04/21/2025 Weight 186 lbs 04/21/2025 BMI 25.22 kg/m2 04/21/2025 Height-cm 182.88 cm 04/21/2025 Weight-kg 84.37 kg 04/21/2025 Encounters Encounter Location Date Provider Diagnosis [facility] [place] [address] [place] [address], [place] [address] 04/21/2025 Iron Colvin Chronic pain syndrom e G89.4 ; Cervical spondylosis M47.812 ; Multilevel thoracic spondylosis without myelopathy M47.814 ; Other spondylosis with radiculopathy, lumbar region M47.26 ; Abnormality of gait and mobility R26.9 ; intermission coordinator (current) use of opiate analgesic Z79.891 ; History of renal transplant Z94.0 ; Lumbar spondylosis M47.816 ; Depression screen Z13.31 and Lumbar radiculopathy M54.16 Assessments Encounter Date Diagnosis (ICD Code) Assessment Notes Treatment Notes Treatment Clinical Notes Section Notes 04/21/2025 Chronic pain syndrome (ICD-10 - G89.4) I had a nice visit with the patient today regarding his chronic pain issues. He was recently hospitalized for nephrology-relat ed problems, which now appear to be stable. He has some upcoming follow-up appointments related to that. He expressed interest in pursuing procedures for his pain at some point, but I would prefer to wait until his other medical issues settle down before proceeding. He has voluntarily cut back on his pain medications and is currently taking two to three pills per day. We will adjust his prescription to reflect this usage. We will plan to see him back in six weeks to reassess and move forward as appropriate. 04/21/2025 Cervical spondylosis (ICD-10 - M47.812) 04/21/2025 Multilevel thoracic spondylosis without myelopathy (ICD-10 - M47.814) 04/21/2025 Other spondylosis with radiculopathy, lumbar region (ICD-10 - M47.26) 04/21/2025 Abnormality of gait and mobility (ICD-10 - R26.9) 04/21/2025 [facility] (current) use of opiate analgesic (ICD-10 - Z79.891) 04/21/2025 History of renal transplant (ICD-10 - Z94.0) 04/21/2025 Lumbar spondylosis (ICD-10 - M47.816) 04/21/2025 Depression screen (ICD-10 - Z13.31) 04/21/2025 Lumbar radiculopathy (ICD-10 - M54.16) 04/21/2025 Other Maddy Alcala, radha scribing for Dr. Iron Colvin. I, Dr. Iron Colvin, personally performed the services described in this documentation, as scribed by Maddy Patiño, and it is both accurate and complete. Plan Of Treatment Medication Medication Name Sig Start Date Stop Date Notes HYDROmorphone HCl 4 MG Tablet 1 tablet as needed Orally every 8 hours; Duration: 30 days 04/21/2025 06/10/2025 Fill 05/11/2025 Treatment Notes Assessment Notes Chronic pain syndrome I had a nice visit with the patient today regarding his chronic pain issues. He was recently hospitalized for nephrology-related problems, which now appear to be stable. He has some upcoming follow-up appointments related to that. He expressed interest in pursuing procedures for his pain at some point, but I would prefer to wait until his other medical issues settle down before proceeding. He has voluntarily cut back on his pain medications and is currently taking two to three pills per day. We will adjust his prescription to reflect this usage. We will plan to see him back in six weeks to reassess and move forward as appropriate. Other Maddy Alcala, am scribing for Dr. Iron Colvin. I, Dr. Iron Colvin, personally performed the services described in this documentation, as scribed by Maddy Patiño, and it is both accurate and complete. Next Appt Details Follow Up: 6 Weeks, Reason: Provider Name:Landy Anthony chalino, 06/03/2025 03:00:00 PM, [address] [place], [address], History and Physical Notes * HPI (History of Present Illness) Category Sub-Category Detail Notes Category Not es Provider Note It's just my back. Pleasant patient reports that he is still struggling with pain in his low back. Pain Details Pain Location Mid-Back Quality Sharp/Stabbing Severity of pain at its worst 7 Severity of pain at its best 4 Severity of average pain 4 Severity of pain right now 6 Severity of pain on medication 3 When did you last take your pain medicin e This morning Medication Details Do you have a lock [...] today? No Opioid Assessment Tools Pill Count 60 Last Urine Drug Screen 03/10/2025 Confir Monitor Backlinksmigue Today's Rapid Urine Drug Screen none tod ay [place] Prescription Monitoring Program [place] PDMPOxycodone 5 #5 [facility] Treatment History Test undergone in the past 2024 Lumbar MRI04/14/2020 Thoracic MRI Past medication you have taken Hydromorp bladimir 4 mg #112 Filled 03/26/2025 Treatments you have had None Ipma Examination Category Sub-Category Detail Notes Category Not [...] Range of Motion: Reduced ROM in all directions with pain throughout Lumbar spine: b/l paraspinal muscle tightness. Joints- [...] achilles (DTR): 1. Right achilles (DTR): 1 Dysesthesias in RUE C6-7 distribution Vascular changes in LUE from shunt Progress Notes * Mark BANDA DDOB:04/1965 (60 yo M)Acc No.[id number]:04/21/2025 Progress Notes Patient: Mark Monsivais Nataly Provider: Chalino Colvin D.O. 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 Quality S harp/Stabbing. Severity of pain at its worst 7 . Severity of pain at its best 4 . Severity of pain on medication 3 . Severity of average pain 4 . Severity of pain right now 6 . When did you last take your pain medicine T his morning.? M edication Details: Do you have a [...] o. O pioid Assessment Tools: Pill Count 6 0. Last Urine Drug Screen 0 03/10/2025 Confirmation. Today's Rapid Urine Drug Screen n one today. [place] Prescription Monitoring Program [place] PDMP O xycodone 5 #5 [facility].? T reatment History: Test undergone in the past 10/2024 Lumbar MRI 04/14/2020 Thoracic MRI. Past medication you have taken H ydromorphone 4 mg #112 Filled 03/26/2025. Treatments you have had None Ipma. Nishant sanchez Note: It's just my back. Pleasant patient reports that he is still struggling with pain in his low back. * ROS: G eneral/Constitutional: Fatigue/Tiredness R eports. F ever R eports. R ecent weight loss R eports. R espiratory: Shortness of breath R eports. G astrointestinal: Abdominal pain R eports. C onstipation D enies.?Nausea R eports. P sychiatric: Depression R eports. * Medical History: Problem:Benign hypertension (disorder) , [...] Depression Arthritis Constipation Blood thinners Lost kidney Medical History Verified * Surgical History: kidney transplant Surgical History verified. * Hospitalization/Major Diagno stic Procedure: unknown Hospitalization Verified. * Family History: F amily History Verified.. family history of fibromyaglia, chronic pain. * [...] M igrated Social History: Smoking Status:Ex-smoker (finding). S ocial History Verified. t aking medications for mental health reasons. * Medications: T akingAcetaminophen 325 MG Capsule 2 capsule as needed Orally every 6 hours As neededamLODIPine Besylate 5 MG Tablet 1 tablet Orally Once a day atorvastatin 10 MG Oral Tablet , Notes to Pharmacist: atorvastatin 10 MG Oral TabletAtorvastatin Calcium 10 MG Tablet 1 tablet Orally Once a day Atrovent DULoxetine HCl 60 MG Capsule Delayed Release Sprinkle 1 capsule Orally daily DULoxetine HCl 30 MG Capsule Delayed Release Sprinkle 1 capsule Orally daily Empagliflozin 25 MG Tablet 1 tablet Orally daily Famotidine 20 MG Tablet 1 tablet Orally twice a day Ferrous Sulfate 325 (65 Fe) MG Tablet 1 tablet Orally daily FiberCon 625 MG Tablet 1 tablet as needed Orally daily Filgrastim 480 MCG/1.6ML Solution as directed Injection daily Finasteride 5 MG Tablet 2 tablet Orally daily Flonase Gabapentin 300 MG Capsule 1 capsule Orally daily HYDROmorphone HCl 4 MG Tablet 1 tablet as needed Orally daily Hypromellose 0.5 % Solution as directed Ophthalmic twice a day Lomotil 2.5-0.025 MG Tablet 2 tablet as needed Orally 4 times a day Losartan Potassium 50 MG Tablet 1 tablet Orally daily Magnesium Oxide 400 MG Tablet 1 tablet with food Orally daily Metoprolol Tartrate 50 MG Oral Tablet , Notes to Pharmacist: Metoprolol Tartrate 50 MG Oral TabletMyfortic 180 MG Tablet Delayed Release 1 tablet Orally Twice a day Ondansetron 4 MG Tablet Disintegrating 1 tablet on the tongue and allow to dissolve Orally every 8 hours As neededoxyCODONE HCl 5 MG Tablet 1 tablet as needed Orally every 6 hours As neededPantoprazole Sodium 40 MG Tablet Delayed Release 1 tablet 1/2 to 1 hour before morning meal Orally twice a day Patiromer Sorbitex Calcium 16.8 GM Packet 1 packet dissolved in water. Take other medications at least 3 hours before or 3 hours after this medication Orally daily prednisoLONE Sodium Bicarbonate 650 MG Tablet as directed Orally twice a day Tacrolimus 1 MG Capsule as directed Orally daily Tamsulosin hydrochloride 0.4 MG Oral Capsule , Notes to Pharmacist: Tamsulosin hydrochloride 0.4 MG Oral CapsuleVitamin D 25 MCG (1000 UT) Tablet 1 tablet Orally daily Taking Acetaminophen 325 MG Capsule 2 capsule as needed Orally every 6 hours As neededTaking amLODIPine Besylate 5 MG Tablet 1 tablet Orally Once a day Taking atorvastatin 10 MG Oral Tablet , Notes to Pharmacist: atorvastatin 10 MG Oral TabletTaking Atorvastatin Calcium 10 MG Tablet 1 tablet Orally Once a day Taking Atrovent Taking DULoxetine HCl 60 MG Capsule Delayed Release Sprinkle 1 capsule Orally daily Taking DULoxetine HCl 30 MG Capsule Delayed Release Sprinkle 1 capsule Orally daily Taking Empagliflozin 25 MG Tablet 1 tablet Orally daily Taking Famotidine 20 MG Tablet 1 tablet Orally twice a day Taking Ferrous Sulfate 325 (65 Fe) MG Tablet 1 tablet Orally daily Taking FiberCon 625 MG Tablet 1 tablet as needed Orally daily Taking Filgrastim 480 MCG/1.6ML Solution as directed Injection daily Taking Finasteride 5 MG Tablet 2 tablet Orally daily Taking Flonase Taking Gabapentin 300 MG Capsule 1 capsule Orally daily Taking HYDROmorphone HCl 4 MG Tablet 1 tablet as needed Orally daily Taking Hypromellose 0.5 % Solution as directed Ophthalmic twice a day Taking Lomotil 2.5-0.025 MG Tablet 2 tablet as needed Orally 4 times a day Taking Losartan Potassium 50 MG Tablet 1 tablet Orally daily Taking Magnesium Oxide 400 MG Tablet 1 tablet with food Orally daily Taking Metoprolol Tartrate 50 MG Oral Tablet , Notes to Pharmacist: Metoprolol Tartrate 50 MG Oral TabletTaking Myfortic 180 MG Tablet Delayed Release 1 tablet Orally Twice a day Taking Ondansetron 4 MG Tablet Disintegrating 1 tablet on the tongue and allow to dissolve Orally every 8 hours As neededTaking oxyCODONE HCl 5 MG Tablet 1 tablet as needed Orally every 6 hours As neededTaking Pantoprazole Sodium 40 MG Tablet Delayed Release 1 tablet 1/2 to 1 hour before morning meal Orally twice a day Taking Patiromer Sorbitex Calcium 16.8 GM Packet 1 packet dissolved in water. Take other medications at least 3 hours before or 3 hours after this medication Orally daily Taking prednisoLONE Taking Sodium Bicarbonate 650 MG Tablet as directed Orally twice a day Taking Tacrolimus 1 MG Capsule as directed Orally daily Taking Tamsulosin hydrochloride 0.4 MG Oral Capsule , Notes to Pharmacist: Tamsulosin hydrochloride 0.4 MG Oral CapsuleTaking Vitamin D 25 MCG (1000 UT) Tablet 1 tablet Orally daily DiscontinuedpredniSONE 5 MG Tablet 1 tablet with food or milk Orally daily Medication List reviewed and reconciled with the patientDiscontinued predniSONE 5 MG Tablet 1 tablet with food or milk Orally daily Medication List reviewed and reconciled with the patient * Allergies: N .K.D.A.yesAllergies Verified. Objective: * Vitals: H t: 72 in, Wt:186lbs, Wt-k.37 kg, BMI:25.22Index, Ht-cm: 182.88 cm. * Examination: G eneral Examination: C onstitutional: [...] Range of Motion: Reduced ROM in all directions with pain throughout Lumbar spine: b/l paraspinal muscle tightness. Joints- [...] achilles (DTR): 1. Right achilles (DTR): 1 Dysesthesias in RUE C6-7 distribution Vascular changes in LUE from shunt. Assessment: * Assessment: 1. C hronic pain [...] Z13.31 10. L umbar radiculopathy - M54.16 Plan: * Treatment: 2. C ervical spondylosis Refill HYDROmorphone HCl Tablet, 4 MG, 1 tablet as needed, Orally, every 8 hours As needed Not to exceed 3 per day, 30 days, 90 Tablet, Start Date: 04/21/2025, Stop Date: 06/10/2025, Refills 0, Notes to Pharmacist: Fill 05/11/2025. 3. O thers Notes: IMaddy, am scribing for Dr. Iron Colvin. I, Dr. Iron Colvin, personally performed the services described in this documentation, as scribed by Maddy Patiño, and it is both accurate and complete. * Follow Up: 6 Weeks Billing Information: * Visit Code: 57582 Office Visit, Est Pt., Level 4. * Procedure Codes: Care Plan Details* * Electronic signature of Iron Colvin DO on 2025 at 09:48 AM CDT Sign off status: Pending * Provider: Chalino Colvin D.O. Date: 0 04/21/2025 Generated for Rick morelos/Sheldon/Lisaitting on: 0 2025 09:48 AM CDT
--- NOTE | 2025-05-04 09:26 | XR_ITS ---
WS: [id number] Portable AP upright chest, 05/04/2025 Clinical Data: dyspnea/cough Comparison: Portable chest, 04/29/2025 Findings: No nodules, masses or effusions are seen. The heart is normal. The pulmonary vascularity is not increased. No pneumonia or pneumothorax is seen. The diaphragms are flattened. The aortic arch and descending thoracic aorta show mild tortuosity. There is osteoarthritis of both shoulder joints. Monitor leads are on the chest wall. XR/XR chest 1V portable [id number] Impression: Atherosclerosis and hyperinflation.
--- NOTE | 2025-05-04 09:26 | W.ED.GENADLT ---
HPI - General Adult General: Chief complaint: Weakness Stated complaint: HTN, Weakness History of Present Illness: 60-year-old female presents emergency room complaining of weakness hypertension has been some intermittent chest discomfort as well. Patient previously has had a renal transplant. Patient was seen on 04 [address] at [address] he was found to have multifocal pneumonia. They advised him to be admitted he preferred to be transferred but there was no available beds at his preferred hospital and ultimately he decided he would prefer to go home. He is continued to be symptomatic. He has not had a productive cough he has been somewhat tachycardic as well as hypotensive. Blood cultures done on 04 29 were negative to date. Associated symptoms: Reports dyspnea; Deny chest pain or rash Related Data Home Medications ?Medication ?Instructions ?Recorded ?Confirmed cholecalciferol (vitamin D3) 25 25 mcg PO QAM 01/14/20 03/18/25 mcg (1,000 unit) capsule fluticasone propionate 50 2 spray intranasal DAILY PRN 01/14/20 03/18/25 mcg/actuation nasal Allergy Symptoms spray,suspension tamsulosin 0.4 mg capsule 0.4 mg PO QAM 01/14/20 03/18/25 atorvastatin 10 mg tablet 10 mg PO BEDTIME 02/13/21 03/18/25 famotidine 20 mg tablet 20 mg PO BID 07/11/21 03/18/25 hydromorphone 4 mg tablet 4 mg PO Q4H PRN Pain 07/11/21 03/18/25 diphenoxylate-atropine 2.5 2 tab PO QID PRN Diarrhea 01/16/22 03/18/25 mg-0.025 mg tablet prednisone 5 mg tablet 5 mg PO QAM 01/16/22 03/18/25 acetaminophen 325 mg capsule 650 mg PO Q4H PRN Pain 03/20/22 03/18/25 artificial tears(hypromellose) 0.3 1 drp ophthalmic (eye) DAILY PRN 03/13/23 03/18/25 % eye drops Itching losartan 50 mg tablet 25 mg PO DAILY 03/13/23 03/18/25 patiromer calcium sorbitex 16.8 See Rx Instructions .Route 03/13/23 03/18/25 gram oral powder packet (Veltassa) .COMPLEX PRN Hyperkalemia empagliflozin 25 mg tablet 25 mg PO QAM 06/06/23 03/18/25 (Jardiance) ferrous sulfate 325 mg (65 mg 325 mg PO QAM 08/08/23 03/18/25 iron) tablet filgrastim 480 mcg/1.6 mL 480 mcg SUBCUT DAILY PRN UNKNOWN 08/08/23 03/18/25 injection solution (Neupogen) finasteride 5 mg tablet 10 mg PO QAM 12/11/23 03/18/25 ipratropium bromide 42 mcg (0.06 2 spray intranasal QID ALLERGIES 12/11/23 03/18/25 %) nasal spray mycophenolate sodium 360 mg 360 mg PO BID 12/11/23 03/18/25 tablet,delayed release calcium polycarbophil 625 mg 625 mg PO QAM 07/15/24 03/18/25 tablet (FiberCon) duloxetine 60 mg capsule,delayed 60 mg PO QAM 07/15/24 03/18/25 release gabapentin 300 mg capsule 300 mg PO QAM 07/15/24 03/18/25 megestrol 400 mg/10 mL (40 mg/mL) 400 mg PO QAM 07/15/24 03/18/25 oral suspension sodium bicarbonate 650 mg tablet 1,300 mg PO BID 07/15/24 03/18/25 duloxetine 30 mg capsule,delayed 30 mg PO BEDTIME 02/20/25 03/18/25 release metoprolol succinate 25 mg 25 mg PO QAM 02/20/25 03/18/25 tablet,extended release 24 hr ondansetron 4 mg disintegrating 4 mg PO Q8H PRN Nausea And Vomiting 02/20/25 03/18/25 tablet tacrolimus 1 mg tablet,extended 1 mg PO DAILY 02/20/25 03/18/25 release 24 hr (Envarsus XR) Previous Rx's ?Medication ?Instructions ?Recorded pantoprazole 40 mg tablet,delayed 40 mg PO BID 6 weeks #84 tabs 04/12/23 release (Protonix) doxycycline hyclate 100 mg tablet 100 mg PO BID 7 days #14 tabs 04/29/25 Allergies Allergy/AdvReac Type Severity Reaction Status Date / Time No Known Allergies Allergy Verified 08/06/24 09:03 Review of Systems Const: Reports: fatigue; Denies: fever(s) or chills Card: Denies: chest pain Resp: Reports: dyspnea and non-productive cough GI: Denies: abdominal pain : Denies: dysuria, urinary frequency or urinary urgency Musc: Denies: neck pain or back pain Skin/Breast: Denies: rash 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 Carpal tunnel syndrome, bilateral upper limbs Surgical History Hx of colonoscopy less than 1 year, no polyps History of esophagogastroduodenoscopy (EGD) less than 1 year History of bilateral carpal tunnel release History of right breast biopsy for benign disease History of thoracotomy with chest tube, for pneumonia History of kidney transplant (09/2021) History of cholecystectomy History of umbilical hernia repair History of arthroscopic knee surgery x 3 History of arthroscopy of right shoulder Family History Father CAD (coronary artery disease) Chronic kidney disease (CKD) Mother Arthritis Other Diabetes Hyperlipidemia Hypertension Denies family history of Clotting disorder Dementia Psychiatric illness Suicide Anesthesia complication Bleeding disorder Lung disease Cancer Stroke Social History Smoking and tobacco/nicotine status: former use of tobacco/nicotine Alcohol intake: never Substance/Drug Use: never Household members: spouse Marital status: Current occupational status: disabled Physical Exam Const: GENERAL APPEARANCE: cooperative ORIENTATION/CONSCIOUSNESS: Yes awake, Yes oriented to person, Yes oriented to place and Yes oriented to time HENMT: COMMON NORMALS: normocephalic, atraumatic and hearing grossly normal bilaterally HEAD & SCALP: normocephalic and atraumatic Resp: COMMON NORMALS: normal respiratory effort, No retractions, No use of accessory muscles and clear to auscultation bilaterally AUSCULTATION: clear to auscultation bilaterally Cardio: COMMON NORMALS: regular rate, regular rhythm and No murmurs present (Cardio) RATE: regular rate RHYTHM: regular rhythm GI: COMMON NORMALS: Soft to palpation and No hepatosplenomegaly present AUSCULTATION: Yes normoactive bowel sounds PALPATION: Yes Soft to palpation, No Tenderness to palpation present (GI), No Guarding due to palpation present (GI) and Yes No hepatosplenomegaly present Extremity: COMMON NORMALS: normal to inspection, capillary refill normal, no clubbing, cyanosis or edema, no calf tenderness and no pedal edema Neuro: SENSORIUM/ORIENTATION: Yes oriented to person, Yes oriented to place and Yes oriented to time Skin: COMMON NORMALS: no rashes or lesions noted GENERAL SKIN EXAM: no rashes or lesions noted Course Vital Signs: Vital signs: Vital Signs Temperature 97.8 F 05/04/25 09:27 Pulse Rate 120 H 05/04/25 09:27 Respiratory Rate 18 05/04/25 09:27 Blood Pressure 97/66 05/04/25 09:27 Pulse Oximetry 100 05/04/25 09:27 [facility] - General Adult Medical Decision Making Hypotension and tachycardia improved with fluid bolus. Lactic acid today elevated. Blood cultures from previous hospital visit is negative to date. Repeat cultures done chest x-ray did not show pneumonia however previous visit CT required to demonstrate the multifocal pneumonia. Will not repeat CT at this time due to elevated creatinine. Discussed with hospitalist empiric antibiotics with Fortaz. Admit IV fluids. Orders written Medical Records I reviewed the patient's medical records. Lab Data I reviewed the patient's lab results. 05/04/25 09:37 05/04/25 09:37 Radiology Impressions Chest X-Ray 05/04/25 09:26 Impression: Atherosclerosis and hyperinflation. Laboratory Results WBC 7.65 10^3/uL (3.29-11.43) 05/04/25 09:37 RBC 4.01 10^6/uL (3.85-5.65) 05/04/25 09:37 Hgb 10.90 g/dL (11.27-16.99) L 05/04/25 09:37 Hct 36.3 % (37-53) L 05/04/25 09:37 MCV 90.5 fl (82-101) 05/04/25 09:37 MCH 27.2 pg (27-33) 05/04/25 09:37 MCHC 30.0 g/dL (30-55) 05/04/25 09:37 RDW 17.1 % (12.1-15.1) H 05/04/25 09:37 Plt Count 120 10^3/cmm (157-399) L 05/04/25 09:37 MPV 10.0 fL (7.4-10.4) 05/04/25 09:37 Lymph % (Auto) Not Reportable 05/04/25 09:37 Saunders % (Auto) Not Reportable 05/04/25 09:37 Lymph # (Auto) Not Reportable 05/04/25 09:37 Saunders # (Auto) Not Reportable 05/04/25 09:37 Total Counted 100 (0-100) 05/04/25 09:37 Atypical Lymphs % 0.0 % (0-5) 05/04/25 09:37 Absolute Neutrophils 5.7 10^3/cmm (1.4-6.5) 05/04/25 09:37 Segmented Neutrophils 68 % 05/04/25 09:37 Band Neutrophils 7.0 % 05/04/25 09:37 Absolute Lymphocytes 1.2 10^3/cmm (1.2-3.4) 05/04/25 09:37 Lymphocytes (Manual) 16 % 05/04/25 09:37 Monocytes (Manual) 6.0 % 05/04/25 09:37 Absolute Monocytes 0.5 10^3/cmm (0.1-0.6) 05/04/25 09:37 Eosinophils (Manual) 2 % 05/04/25 09:37 Absolute Eosinophils 0.2 10^3/cmm (0.0-0.7) 05/04/25 09:37 Basophils (Manual) 0.0 % 05/04/25 09:37 Absolute Basophils 0.0 10^3/cmm (0.0-0.2) 05/04/25 09:37 Myelocytes 1.0 % 05/04/25 09:37 Platelet Estimate Decreased (Normal) 05/04/25 09:37 Anisocytosis Trace 05/04/25 09:37 Sodium 136 mmol/L (136-145) 05/04/25 09:37 Potassium 4.9 mmol/L (3.5-5.1) 05/04/25 09:37 Chloride 107 mmol/L (98-107) 05/04/25 09:37 Carbon Dioxide 14 mmol/L (22-29) L 05/04/25 09:37 Anion Gap 19.9 (5-19) H 05/04/25 09:37 BUN 27 mg/dL (6-20) H 05/04/25 09:37 Creatinine 2.3 mg/dL (0.7-1.2) H 05/04/25 09:37 GFR Calculation 29.2 mL/min (90-130) L 05/04/25 09:37 Glucose 128 mg/dL (65-115) H 05/04/25 09:37 Calculated Osmolality 289 mOsm/kg (285-295) 05/04/25 09:37 Lactic Acid 2.7 mmol/L (0.5-2.2) H 05/04/25 09:37 Calcium 9.4 mg/dL (8.5-10.5) 05/04/25 09:37 Total Bilirubin 0.6 mg/dL (0.15-1.2) 05/04/25 09:37 AST 10 U/L (0-40) 05/04/25 09:37 ALT 7 U/L (0-41) 05/04/25 09:37 Alkaline Phosphatase 25 U/L (40-130) L 05/04/25 09:37 Troponin T Baseline 57 ng/L (0-15) H 05/04/25 09:37 Total Protein 5.3 g/dL (6.6-8.7) L 05/04/25 09:37 Albumin 4.5 g/dL (3.5-5.2) 05/04/25 09:37 Globulin 0.8 g/dL (1.3-4.6) L 05/04/25 09:37 Urine Color Yellow (Yellow) 05/04/25 10:22 Urine Appearance Cloudy (CLEAR) A 05/04/25 10:22 Urine pH 5.5 (5-7) 05/04/25 10:22 Ur Specific [place] 1.015 (1.005-1.030) 05/04/25 10:22 Urine Protein 3+ (Negative) A 05/04/25 10:22 Urine Glucose (UA) Trace (Normal) H 05/04/25 10:22 Urine Ketones Negative (Negative) 05/04/25 10:22 Urine Blood Negative (Negative) 05/04/25 10:22 Urine Nitrate Negative (Negative) 05/04/25 10:22 Urine Bilirubin Negative (Negative) 05/04/25 10:22 Urine Urobilinogen 0.2 mg/dL (Negative) 05/04/25 10:22 Ur Leukocyte Esterase Negative (Negative) 05/04/25 10:22 Urine RBC 0-2 /hpf (0-2) 05/04/25 10:22 Urine WBC 0-5 /hpf (0-5) 05/04/25 10:22 Ur Squamous Epith Cells 0-5 /hpf (0-5) 05/04/25 10:22 Amorphous Sediment Not Reportable 05/04/25 10:22 Urine Bacteria None seen /hpf (NONE) 05/04/25 10:22 Hyaline Casts 9.07 /lpf 05/04/25 10:22 Influenza A (PCR) Negative (Negative) 05/04/25 09:49 Influenza Type B (PCR) Negative (Negative) 05/04/25 09:49 RSV (PCR) Negative (Negative) 05/04/25 09:49 SARS-CoV-2 (PCR) Negative (Negative) 05/04/25 09:49 All radiology interpretation(s) finalized by discharge EKG Data EKG 1: Interpretation: EKG 05/04/2025 9:36 AM sinus tachycardia. Rate of 101 NE interval 192 QTc 382. Nonspecific T wave changes. Compared to EKG 04/29/2025 1305 no significant changes noted Computer generated interpretation: Chest X-Ray 05/04/25 09:26 Impression: Atherosclerosis and hyperinflation. Discharge Plan Discharge Patient Disposition: Admitted As Inpatient Clinical Impression: Pneumonia, Anemia, 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 therapy, Kidney transplant recipient, FSGS (focal segmental glomerulosclerosis), Elevated lactic acid level Condition: Stable Coding Level of Care Code ED Industrial Engineering Director for Audrey Almanza
[2025-05-04 09:27] VITALS: BP 97/66; PULSE 120; RESP 18; TEMP 36.6; O2SAT 100
--- NOTE | 2025-05-04 09:36 | ECG_ITS ---
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 Measurements Intervals [place] Rate: 101 P: 36 MA: 192 QRS: -30 QRSD: 99 T: 142 QT: 324 QTc: 420 Interpretive Statements SINUS TACHYCARDIA VOLTAGE CRITERIA FOR LVH [MEETS CRITERIA IN ONE OF: R(aVL), S(V1), R(V5), R(V5/V6)+S(V1)] POSSIBLE ANTERIOR MYOCARDIAL INFARCTION , PROBABLY OLD [30 ms Q WAVE IN V3/V4, OR R < 0.2 mV IN V4] MODERATE T-WAVE ABNORMALITY, CONSIDER LATERAL ISCHEMIA [-0.1+ mV T-WAVE IN I/aVL/V5/V6]VERSUS REPOLARIZATION ABNORMALITY FROM LVH Compared to ECG 04/29/2025 13:05:19 No significant change Electronically Signed On 05-05-2025 21:01:01 CDT by Vikram Dougherty M.D. [email or web address]
[2025-05-04 09:43] LABS: Hematocrit 36.3 % (37-53); Hemoglobin 10.90 g/dL (11.27-16.99); Mean Corpuscular HGB Conc 30.0 g/dL (30-55); Mean Corpuscular Hemoglobin 27.2 pg (27-33); Mean Corpuscular Volume 90.5 fl (82-101); Platelet Count 120 10^3/cmm (157-399); Red Blood Count 4.01 10^6/uL (3.85-5.65); White Blood Count 7.65 10^3/uL (3.29-11.43)
--- OUTSIDE RECORDS SUMMARY | 2025-05-04 09:48 | XMS_ITS | Encounter Summary ---
Author Organization [facility] Address [address] [place] [address] Care Team Providers Care Band Top Maker Name Role Phone Unavailable Primary Care Provider Unavailabl e Encounter Details Date Type Department Care Team (Latest Contact Info) Description 06/11/2005 Outpatient Historical [facility] [address] 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
--- OUTSIDE RECORDS SUMMARY | 2025-05-04 09:48 | XMS_ITS | Encounter Summary ---
Author Organization [facility] Address [address] [place] [address] Care Team Providers Care Composition Worker Name Role Phone Unavailable Primary Care Provider Unavailabl e Encounter Details Date Type Department Care Team (Latest Contact Info) Description 06/02/2004 Outpatient Historical [facility] [address] [facility] [address] [place] [phone] Alejandro Guevara MD [address] [facility] [address] [place] [address] JOINT PAIN-MULT JTS (Primary Dx) Social History Tobacco Use Types Packs/Day Years Used Date Smoking Tobacco: Never Assessed Sex and Gender Information Value Date Recorded Sex Assigned at Not on file Legal Sex Male 3:00 AM TRIAGE RN Gender Identity Not on file Sexual Orientation Not on file documented as of this encounter Plan of Treatment Not on file documented as of this encounter Visit Diagnoses Diagnosis Pain in joint, multiple sites- Primary documented in this encounter
--- OUTSIDE RECORDS SUMMARY | 2025-05-04 09:48 | XMS_ITS | Clinical Summary ---
Author Organization [facility] Address [address] 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
--- OUTSIDE RECORDS SUMMARY | 2025-05-04 09:48 | XMS_ITS | Encounter Summary ---
Author Organization [facility] Address [address] [place] [address] Care Team Providers Care Tumble Tailstock Turret Lathe Operator Name Role Phone Unavailable Primary Care Provider Unavailabl e Encounter Details Date Type Department Care Team (Latest Contact Info) Description 2003 Outpatient Historical [facility] General Surgery [address] [address] [place] [phone] [place] [address] [facility] [address] [place] [id number] ABDOMINAL PAIN OTHER SPEC SITE (Primary Dx) Social History Tobacco Use Types Packs/Day Years Used Date Smoking Tobacco: Never Assessed Sex and Gender Information Value Date Recorded Sex Assigned at Not on file 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
--- OUTSIDE RECORDS SUMMARY | 2025-05-04 09:48 | XMS_ITS | Clinical Summary ---
Author Organization [facility] Address [address] [facility] Attn: Epic Prelude ADT PETE CABRERA [address] Care Team Providers Care Home Health Care Physician Name Role Phone Unavailable Primary Care Provider [...] on file Legal Sex Male 12:00 AM PHYSICAL THERAPY AID Gender Identity Not on file Sexual Orientation Not on file Plan of Treatment Health Maintenance Due Date Last Done Comments Pre-Diabetes and Diabetes Screening 1965 HEPATITIS B VACCINES (1 of 3 - 19+ 3-dose series) 1985 FIT-DNA Q 3 years 2011 FIT/FOBT Q 1 year 2011 INFLUENZA VACCINE (#1) 2025 , 06/29/2022, 06/20/2020, Additional history exists COVID-19 Vaccine (2024-2 6 season) 2025 07/12/2022, 02/07/2022, 09/08/2021, Additional history exists Flex Sig/CT Colonography Q 5 years 01/27/20292023 DTAP/TDAP/TD VACCINES (2 - T d or Tdap) 01/25/2033 01/25/2023, 05/23/2022, 06/07/2005, Additional history exists COLORECTAL SCREENING 01/27/2034 01/28/2024 Colorectal Cancer Screening 01/27/2034 ZOSTER VACCINE Completed 07/26/2023, 01/18/2023
--- OUTSIDE RECORDS SUMMARY | 2025-05-04 09:48 | XMS_ITS | Encounter Summary ---
Author Organization [facility] Address [address] [place] [address] Care Team Providers Care Waist Pleater Name Role Phone Unavailable Primary Care Provider Unavailabl e Encounter Details Date Type Department Care Team (Latest Contact Info) Description 06/02/2004 Outpatient Historical [facility] Alejandro Guevara MD [address] [phone] ARTHROPATHY NOS-UNSPEC (Primary Dx) Social History Tobacco Use Types Packs/Day Years Used Date Smoking Tobacco: Never Assessed Sex and Gender Information Value Date Recorded Sex Assigned at Not on file Legal 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
--- OUTSIDE RECORDS SUMMARY | 2025-05-04 09:48 | XMS_ITS | Encounter Summary ---
Author Organization [facility] Address [address] [place] [address] Care Team Providers Care Mail List Librarian Name Role Phone Unavailable Primary Care Provider Unavailabl e Encounter Details Date Type Department Care Team (Latest Contact Info) Description 06/16/2004 Outpatient Historical [facility] [address] 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
--- OUTSIDE RECORDS SUMMARY | 2025-05-04 09:48 | XMS_ITS | Encounter Summary ---
Author Organization [facility] Address [address] [place] [address] Care Team Providers Care Plate Cleaner Name Role Phone Unavailable Primary Care Provider Unavailabl e Encounter Details Date Type Department Care Team (Latest Contact Info) Description 06/07/2004 Outpatient Historical [facility] [address] [place] [phone] Alejandro Guevara MD [address] [phone] JOINT DIS NOS-SHLDER (Primary Dx) Social History Tobacco Use Types Packs/Day Years Used Date Smoking Tobacco: Never Assessed Sex and Gender Information Value Date Recorded Sex Assigned at Not on file Legal 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
--- OUTSIDE RECORDS SUMMARY | 2025-05-04 09:48 | XMS_ITS | Encounter Summary ---
Author Organization [facility] Address [address] [place] [address] Care Team Providers Care Manufacturing Process Technician Name Role Phone Unavailable Primary Care Provider Unavailabl e Encounter Details Date Type Department Care Team (Late st Contact Info) Description 2004 Outpatient Historical [facility] [address] 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
--- OUTSIDE RECORDS SUMMARY | 2025-05-04 09:48 | XMS_ITS | Encounter Summary ---
Author Organization [facility] Address [address] [place] [address] Care Team Providers Care Sulfide Head Operator Name Role Phone Unavailable Primary Care Provider Unavailabl e Encounter Details Date Type Department Care Team (Latest Contact Info) Description 06/02/2004 [facility] [address] [place] [phone] Alejandro Guevara MD [address] [address] JOINT PAIN-MULT JTS (Primary Dx) Social History Tobacco Use Types Packs/Day Years Used Date Smoking Tobacco: Never Assessed Sex and Gender Information Value Date Recorded Sex Assigned at Not on file Legal Sex Male 3:00 AM PHYSICAL DIRECTOR Gender Identity Not on file Sexual Orientation Not on file documented as of this encounter Plan of Treatment Not on file documented as of this encounter Visit Diagnoses Diagnosis Pain in joint, multiple sites- Primary documented in this encounter
--- OUTSIDE RECORDS SUMMARY | 2025-05-04 09:48 | XMS_ITS | Encounter Summary ---
Author Organization [facility] Address [address] [place] [address] Care Team Providers Care Vat Packer Name Role Phone Unavailable Primary Care Provider Unavailabl e Encounter Details Date Type Department Care Team (Late st Contact Info) Description 03/03/2024 Lab Requisition [facility] Laboratory Services [address] [place] [address] [facility], External Provider [address] [place] [address] Social History Tobacco Use Types Packs/Day Years Used Date Smoking Tobacco: Never Assessed Sex and Gender Information Value Date Recorded Sex Assigned at Not on file Legal Sex Male 12:00 AM IMAGE EDITOR Gender Identity Not on file Sexual Orientation Not on file documented as of this encounter Plan of Treatment Not on file documented as of this encounter Procedures Procedure Name Priority Date/Time Associated Diagnosis Comments OSMOLALITY Stat 03/03/2024 1:30 AM CDT documented in this encounter Results * OSMOLALITY (03/03/2024 1:30 AM CDT) OSMOLALITY 281 275 - 295 mOsm/kg 03/03/2024 3:43 AM CDT [facility] [employer] [facility] Blood Collection / Unknown 03/03/2024 1:30 AM CDT 03/03/2024 3:20 AM CDT us External Provider [facility] CHEMISTRY ORDERABLES Final Result [facility] [employer] [facility] CLIA # [id number] [address] [address] documented in this encounter Visit Diagnoses Not on filedocumented in this encounter
--- OUTSIDE RECORDS SUMMARY | 2025-05-04 09:48 | XMS_ITS | Encounter Summary ---
Author Organization [facility] Address [address] [place] [address] Care Team Providers Care Computer Systems Technology Instructor Name Role Phone Unavailable Primary Care Provider Unavailabl e Encounter Details Date Type Department Care Team (Late st Contact Info) Description 2004 Outpatient Historical [facility] [address] [address] [place] [address] [facility] [address] [place], [place] [id number] JOINT PAIN-MULT JTS (Primary Dx) Social History Tobacco Use Types Packs/Day Years Used Date Smoking Tobacco: Never Assessed Sex and Gender Information Value Date Recorded Sex Assigned at Not on file 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
--- OUTSIDE RECORDS SUMMARY | 2025-05-04 09:48 | XMS_ITS | Encounter Summary ---
Author Organization [facility] Address 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
--- OUTSIDE RECORDS SUMMARY | 2025-05-04 09:48 | XMS_ITS | Encounter Summary ---
Author Organization [facility] Address [address] [place] [address] Care Team Providers Care Car Driver Name Role Phone Unavailable Primary Care Provider Unavailabl e Encounter Details Date Type Department Care Team (Latest Contact Info) Description 06/11/2005 Outpatient Historical [facility] Spine [facility] [address] 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
--- OUTSIDE RECORDS SUMMARY | 2025-05-04 09:48 | XMS_ITS | Encounter Summary ---
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
--- OUTSIDE RECORDS SUMMARY | 2025-05-04 09:48 | XMS_ITS | Patient Health Record ---
Author Organization [facility] Address [address] [place] [address] Care Team Providers Care Lathe Sander Name Role Phone Lilian Sanchez Primary Care Provider Unavail able Bakarijem Iron Unavailable [phone] [employer] Unavailable [phone] Allergies No Known Allergies Results Component Value Reference Range Flag Notes Tox Results Reviewed date:03/19/2025 04:34:53 PM Interpretation: Performing Lab: Notes/Report: Urine Drug Screen (cup read) - 02452 Reviewed date:03/10/2025 09:20:39 AM Interpretation: Performing Lab: Notes/Report: OPI + Urine Confirmation Panel (in strument) - [id number] Reviewed date:03/17/2025 05:23:02 PM Interpretation: Performing Lab: [...] the U.S. Food and Drug Administration. Gabapentin >82100 <225 ng/mL > This test was developed [...] by the U.S. Food and Drug Administration. Reason For Referral Reason chronic low back abril n Diagnosis 1 Chronic pain syndrom e (G89.4) Referring Provider First Name Rik Referring Provider Last Name Macario Referring Provider Speciality Family Med icine [facility] Referred Provider Iron Colvin Referred Address [address],[facility],[place],[address],[place] Referred Provider Specialty Intervention al Pain Medicine [...] Date Status Comme nts Influenza (whole), CPT 09745 Inactive Unknown 07/10/2017 Administered Social History Tobacco [...] Status Risk Notes Problem Chronic pain syndrome (365218114) Chronic pain syndrome (G89.4) Active confirmed Problem Lumbosacral spondylosis without myelopathy (43209096) Other spondylosis with radiculopathy, lumbar region (M47.26) Active confirmed Problem Cervicalgia (74596882) Cervicalgia (M54.2) Active confirmed Problem Lumbar radiculopathy (956043789) Lumbar radiculopathy (M54.16) Active confirmed Problem Lumbar spondylosis (648362014) Lumbar spondylosis (M47.816) Active confirmed Problem Cervical spondylosis (016307209) Cervical spondylosis (M47.812) Active confirmed Problem Abnormal gait (54116218) Abnormality of gait and mobility (R26.9) Active confirmed Problem History of renal transplant (351724091) History of renal transplant (Z94.0) Active confirmed Problem Degeneration of cervical intervertebral disc (63425794) Degeneration, intervertebral disc, 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) Active confirmed Problem Thoracic spondylosis without myelopathy (465957518) 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) Active confirmed Vital Signs Height-cm 182.88 cm 04/21/2025 Weight-kg 84.37 kg 04/21/2025 Height 72 in 04/21/2025 Weight 186 lbs 04/21/2025 BMI 25.22 kg/m2 04/21/2025 Encounters Encounter Location Date Provider Diagnosis [facility] [place] [address] [place] [address] 03/10/2025 Iron Colvin Chronic pain syndrom e G89.4 ; Cervical spondylosis M47.812 ; Multilevel thoracic spondylosis without myelopathy M47.814 ; Other spondylosis with radiculopathy, lumbar region M47.26 ; Abnormality of gait and mobility R26.9 ; penitentiary (current) use of opiate analgesic Z79.891 ; History of renal transplant Z94.0 ; Lumbar spondylosis M47.816 ; Depression screen Z13.31 and Lumbar radiculopathy M54.16 [facility] [place] [address] [place] [address] 02/10/2025 Iron Colvin Chronic pain syndrom e G89.4 ; Abnormality of gait and mobility R26.9 ; Cervical spondylosis M47.812 ; Lumbar radiculopathy M54.16 ; watermaster (current) use of opiate analgesic Z79.891 ; History of renal transplant Z94.0 ; Lumbar spondylosis M47.816 and Multilevel thoracic spondylosis without myelopathy M47.814 [facility] [place] [address] [place] [address] 04/21/2025 Iron Colvin Chronic pain syndrom e G89.4 ; Cervical spondylosis M47.812 ; Multilevel thoracic spondylosis without myelopathy M47.814 ; Other spondylosis with radiculopathy, lumbar region M47.26 ; Abnormality of gait and mobility R26.9 ; penitentiary (current) use of opiate analgesic Z79.891 ; [...] getting admitted to the hospital twice in [place], where his renal team is, and he [...] gait and mobility (ICD-10 - R26.9) 02/10/2025 penitentiary (current) use of opiate analgesic (ICD-10 - Z79.891) 02/10/2025 History of renal transplant (ICD-10 - Z94.0) 03/10/2025 penitentiary (current) use of opiate analgesic (ICD-10 - [...] gait and mobility (ICD-10 - R26.9) 04/21/2025 watermaster (current) use of opiate analgesic (ICD-10 - [...] Name:Landy johnson, 06/03/2025 03:00:00 PM, [address] [place], [address], Insurance Providers Payer Name Payer Address Payer Phone Subscriber Number Group Number Insured Name Patient Relationship to Insured Coverage Start Date Coverage End Date [employer] [place] [address] [place] [address] [id number] Mark Mccabe Self - patient is the insured [employer] [address] [address] [place] [address] [id number] Mark Mccabe Self - patient is the insured [facility] [employer] [address] [place] [address] [id number] Mark Mccabe Self - patient is the [...]
--- OUTSIDE RECORDS SUMMARY | 2025-05-04 09:48 | XMS_ITS | Encounter Summary ---
Author Organization [facility] Address [address] [place] [address] Care Team Providers Care Partition Assembly Machine Operator Name Role Phone Unavailable Primary Care Provider Unavailabl e Encounter Details Date Type Department Care Team (Latest Contact Info) Description 06/16/2004 Outpatient Historical [facility] [address] [facility] [address] [place] [address] Alejandro Guevara MD [address] [place] [address] CERVICALGIA (Primary Dx) Social History Tobacco Use Types Packs/Day Years Used Date Smoking Tobacco: Never Assessed Sex and Gender Information Value Date Recorded Sex Assigned at Not on file Legal Sex Male 3:00 AM [employer] Gender Identity Not on file Sexual Orientation Not on file documented as of this encounter Plan of Treatment Not on file documented as of this encounter Visit Diagnoses Diagnosis Cervicalgia- Primary documented in this encounter
--- OUTSIDE RECORDS SUMMARY | 2025-05-04 09:48 | XMS_ITS | Encounter Summary ---
Author Organization [facility] Address [address] [place] [address] Care Team Providers Care Sterilization Specialist Name Role Phone Unavailable Primary Care Provider Unavailabl e Encounter Details Date Type Department Care Team (Late st Contact Info) Description 03/02/2024 Lab Requisition [facility] Laboratory Services [address] [place] [place] [address] [facility], External Provider [address] [place] [address] Social History Tobacco Use Types Packs/Day Years Used Date Smoking Tobacco: Never Assessed Sex and Gender Information Value Date Recorded Sex Assigned at Not on file 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 us External Provider [facility] URINE ORDERABLES Final Res ult [facility] # [id number] [facility] [address] documented in this encounter Visit Diagnoses Not on filedocumented in this encounter
[2025-05-04 10:01] LABS: Alanine Aminotransferase 7 U/L (0-41); Albumin Level 4.5 g/dL (3.5-5.2); Alkaline Phosphatase 25 U/L (40-130); Aspartate Amino Transferase 10 U/L (0-40); Blood Urea Nitrogen 27 mg/dL (6-20); Calcium 9.4 mg/dL (8.5-10.5); Carbon Dioxide 14 mmol/L (22-29); Chloride 107 mmol/L (98-107); Creatinine Clr Calc Pharmacy 40.5231; Globulin 0.8 g/dL (1.3-4.6); Glucose 128 mg/dL (65-115); Osmolality Calculated 289 mOsm/kg (285-295); Sodium 136 mmol/L (136-145); Total Protein 5.3 g/dL (6.6-8.7)
[2025-05-04 10:02] LABS: Anion Gap 19.9 (5-19); Lactic Sepsis W/Reflex 2.7 mmol/L (0.5-2.2); Potassium 4.9 mmol/L (3.5-5.1); Troponin(5th) Baseline 57 ng/L (0-15)
[2025-05-04 10:18] LABS: Slide Review Slide Review Perform
[2025-05-04 10:19] LABS: Absolute Segmented Neutrophil 5.2 10/cmm (1.6-7.1); Anisocytosis Trace; Atypical Lymphs 0.0 % (0-5); Band Neutrophils Absolute 0.5 10^3/cmm (0.0-1.2); Total Cells Counted 100 (0-100)
[2025-05-04 10:35] LABS: Respiratory Syncytial Virus Ce NEGATIVE (Negative); SARS-CoV-2 PCR NEGATIVE (Negative)
[2025-05-04 10:41] LABS: Add Urine Microscopic? YES; Glucose Urine UA Trace (Normal); Nitrate Urine Negative (Negative); Specific Gravity, Urine 1.015 (1.005-1.030)
[2025-05-04] MEDS: cefTAZidime 2,000 mg SDV 2000 MG IVP (10:44)
[2025-05-04 10:57] LABS: UA Slide Review UA Slide Review Perf
--- NOTE | 2025-05-04 10:57 | PM.HP ---
Providers/Chief Complaint Primary Care Provider: Rik Sorto MD Chief Complaint: HTN, Weakness History of Present Illness Mark Mccabe is a 60 year old gentleman with a history of chronic kidney disease status post kidney transplant in 2021 on chronic immunosuppression and corticosteroids, presenting to the emergency department with generalized weakness, soft blood pressure, and intermittent chest pain. He was seen on 04/29 with weakness, dizziness, low blood pressure (70s?80s systolic), mild dyspnea without cough, and was treated with fluid bolus. Chest imaging at that time showed mild pneumonia on chest X-ray, confirmed on CT angiography (CTA) with multifocal right-lung opacifications (felt to be pneumonitis or hypersensitivity pneumonitis); prior left upper lobe consolidation had resolved. No pulmonary embolism, no right heart strain; additional small stable non-calcified 4 mm pulmonary nodules and scattered granulomata were noted. Admission was discussed but he declined, and he was discharged on doxycycline 100 mg twice daily for 7 days. Blood cultures from 04/29 were negative. He returns today with generalized weakness and soft blood pressure. Received 3.7 L of fluid boluses in the ED with improvement in systolic blood pressure to 113 mmHg. Reports shortness of breath, especially with exertion (e.g., walking across the room), and a little cough with sputum. No fever reported at home. No diarrhea or vomiting. No urinary burning, hematuria, or changes in urination; continues to make urine. Ongoing painful oral/throat symptoms: history of thrush after prednisone escalation; currently has mouth corner sores, tongue and throat pain, odynophagia; tolerates fluids and very soft foods; no coughing with liquids. Reports weight loss of approximately 10?15 pounds recently. Home antihypertensives have been held by spouse due to low blood pressure; prior month blood pressure had been high with metoprolol and losartan escalated up to losartan 100 mg twice daily. Prednisone had been increased to 60 mg daily several weeks ago due to proteinuria, now tapered to 10 mg each morning. He underwent ablation in September for episodes of tachyarrhythmia (rates up to ~200 bpm). Socially, he is a former smoker and does not use alcohol or illicit substances. He receives dialysis (reported Mondays) and plasmapheresis in [place], with plasmapheresis twice weekly (Mondays and Fridays). He has a dialysis fistula. Review of Systems Const: Reports: fatigue and malaise; Denies: fever(s), chills or body aches ENMT: Denies: throat pain Card: Denies: chest pain, edema, pre-syncope or dyspnea on exertion Resp: Reports: dyspnea; Denies: productive cough, change in phlegm color or hemoptysis GI: Denies: abdominal pain, nausea, vomiting, diarrhea, constipation, hematochezia or melena : Denies: flank pain, difficulty urinating, urinary frequency or hematuria Musc: Denies: back pain, joint swelling or joint redness Skin/Breast: Denies: rash or new lesions Neuro: Denies: headache(s) or confusion Medications/Allergies Home Medications ?Medication ?Instructions ?Recorded ?Confirmed ?Last Taken ?Type cholecalciferol (vitamin D3) 25 25 mcg PO QAM 01/14/20 05/04/25 05/04/25 08:00 History mcg (1,000 unit) capsule fluticasone propionate 50 2 spray intranasal DAILY PRN 01/14/20 05/04/25 03/18/25 07:00 History mcg/actuation nasal Allergy Symptoms spray,suspension tamsulosin 0.4 mg capsule 0.4 mg PO QAM 01/14/20 05/04/25 05/04/25 09:00 History atorvastatin 10 mg tablet 10 mg PO BEDTIME 02/13/21 05/04/25 05/03/25 19:00 History famotidine 20 mg tablet 20 mg PO BID 07/11/21 05/04/25 05/04/25 08:00 History hydromorphone 4 mg tablet 4 mg PO Q6H PRN Pain 07/11/21 05/04/25 02/19/25 History diphenoxylate-atropine 2.5 2 tab PO QID PRN Diarrhea 01/16/22 05/04/25 11/28/22 History mg-0.025 mg tablet (Lomotil) prednisone 5 mg tablet 5 mg PO QAM 01/16/22 05/04/25 05/04/25 08:00 History acetaminophen 325 mg capsule 650 mg PO Q4H PRN Pain 03/20/22 05/04/25 11/28/22 History artificial tears(hypromellose) 0.3 1 drp ophthalmic (eye) DAILY PRN 03/13/23 05/04/25 Unknown History % eye drops Itching losartan 50 mg tablet 25 mg PO DAILY 03/13/23 05/04/25 03/18/25 History patiromer calcium sorbitex 16.8 See Rx Instructions .Route 03/13/23 05/04/25 03/17/25 12:00 History gram oral powder packet (Veltassa) .COMPLEX PRN Hyperkalemia pantoprazole 40 mg tablet,delayed 40 mg PO BID 6 weeks #84 tabs 04/12/23 05/04/25 05/04/25 08:00 Rx release (Protonix) empagliflozin 25 mg tablet 25 mg PO QAM 06/06/23 05/04/25 05/04/25 08:00 History (Jardiance) ferrous sulfate 325 mg (65 mg 325 mg PO QAM 08/08/23 05/04/25 05/04/25 08:00 History iron) tablet filgrastim 480 mcg/1.6 mL 480 mcg SUBCUT DAILY PRN UNKNOWN 08/08/23 05/04/25 Unknown History injection solution (Neupogen) finasteride 5 mg tablet 10 mg PO QAM 12/11/23 05/04/25 05/04/25 08:00 History ipratropium bromide 42 mcg (0.06 2 spray intranasal QID ALLERGIES 12/11/23 05/04/25 07/15/24 History %) nasal spray calcium polycarbophil 625 mg 625 mg PO QAM 07/15/24 05/04/25 05/03/25 08:00 History tablet (FiberCon) duloxetine 60 mg capsule,delayed 60 mg PO QAM 07/15/24 05/04/25 05/03/25 12:00 History release gabapentin 300 mg capsule 300 mg PO QAM 07/15/24 05/04/25 05/04/25 08:00 History megestrol 400 mg/10 mL (40 mg/mL) 400 mg PO QAM 07/15/24 05/04/25 05/03/25 12:00 History oral suspension sodium bicarbonate 650 mg tablet 1,300 mg PO BID 07/15/24 05/04/25 05/04/25 09:00 History duloxetine 30 mg capsule,delayed 30 mg PO BEDTIME 02/20/25 05/04/25 05/03/25 12:00 History release ondansetron 4 mg disintegrating 4 mg PO Q8H PRN Nausea And Vomiting 02/20/25 05/04/25 Unknown History tablet tacrolimus 1 mg tablet,extended 1 mg PO DAILY 02/20/25 05/04/25 05/04/25 08:00 History release 24 hr (Envarsus XR) doxycycline hyclate 100 mg tablet 100 mg PO BID 7 days #14 tabs 04/29/25 05/04/25 05/04/25 08:00 Rx metoprolol succinate 100 mg 100 mg PO BID 05/04/25 05/04/25 Unknown History tablet,extended release 24 hr mycophenolate sodium 180 mg 180 mg PO BID 05/04/25 05/04/25 05/04/25 08:00 History tablet,delayed release oxycodone 5 mg tablet 5 mg PO Q6H PRN Pain 05/04/25 05/04/25 Unknown History prednisone 10 mg tablet See Rx Instructions .Route .COMPLEX 05/04/25 05/04/25 Unknown History Allergies Allergy/AdvReac Type Severity Reaction Status Date / Time No Known Allergies Allergy Verified 08/06/24 09:03 PFSH Acute PFSH: Medical History 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 therapy Gout Benign prostatic hyperplasia Peptic ulcer disease Obstructive sleep apnea Fibromyalgia Degenerative joint disease of spine Degenerative arthritis History of peritonitis In association with peritoneal dialysis FSGS (focal segmental glomerulosclerosis), tip variant with nephrosis Pulmonary hypertension associated with ESRD on dialysis Hypertension Hyperlipidemia ESRD (end stage renal disease) 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 Carpal tunnel syndrome, bilateral upper limbs Surgical History Hx of colonoscopy less than 1 year, no polyps History of esophagogastroduodenoscopy (EGD) less than 1 year History of bilateral carpal tunnel release History of right breast biopsy for benign disease History of thoracotomy with chest tube, for pneumonia History of kidney transplant (09/2021) History of cholecystectomy History of umbilical hernia repair History of arthroscopic knee surgery x 3 History of arthroscopy of right shoulder Family History Father CAD (coronary artery disease) Chronic kidney disease (CKD) Mother Arthritis Other Diabetes Hyperlipidemia Hypertension Denies family history of Clotting disorder Dementia Psychiatric illness Suicide Anesthesia complication Bleeding disorder Lung disease Cancer Stroke Social History Smoking and tobacco/nicotine status: former use of tobacco/nicotine Alcohol intake: never Substance/Drug Use: never Household members: spouse Marital status: Current occupational status: disabled Vitals/I&O/Wt Last Vital Signs Temp 97.8 F 05/04/25 09:27 Pulse 120 H 05/04/25 09:27 Resp 18 05/04/25 09:27 BP 97/66 05/04/25 09:27 Pulse Ox 100 05/04/25 09:27 Weight last 48 hrs Weight 90.718 kg Physical Exam Narrative: Accompanied by his Const: COMMON NORMALS: patient oriented x3 and alert GENERAL APPEARANCE: cooperative ORIENTATION/CONSCIOUSNESS: Yes awake HENMT: COMMON NORMALS: oropharynx normal Neck/C-Spine: COMMON NORMALS: no JVD Resp: COMMON NORMALS: normal respiratory effort and clear to auscultation bilaterally AUSCULTATION: clear to auscultation bilaterally Cardio: COMMON NORMALS: no JVD, regular rhythm, S1 normal heart sound present, S2 normal heart sound present and No murmurs present (Cardio) RHYTHM: regular rhythm HEART SOUNDS: S1 normal heart sound present and S2 normal heart sound present GI: COMMON NORMALS: Normal to inspection, nondistended, normoactive bowel sounds present, Soft to palpation and non-tender PALPATION: Yes Soft to palpation Extremity: COMMON NORMALS: no joint enlargement and no pedal edema Neuro: COMMON NORMALS: patient oriented x3 and moves all extremities SENSORIUM/ORIENTATION: Yes alert Skin: COMMON NORMALS: no rashes or lesions noted GENERAL SKIN EXAM: no rashes or lesions noted Data 05/04/25 09:37 05/04/25 09:37 Micro: Microbiology 05/04/25 10:06 Blood Culture - Preliminary Blood SPECIMEN COLLECTED 05/04/25 10:01 Blood Culture - Preliminary Blood SPECIMEN COLLECTED A&P Assessment and plan 1. Pneumonia: Pneumonia vs hypersensitivity pneumonitis (immunosuppressed host) : Recent CTA on 04/29 showed multifocal right-lung opacifications (pneumonitis/hypersensitivity pneumonitis); now returns with weakness, hypotension, tachycardia, SOB, cough. Chest X-ray referenced today. Broad infectious work-up planned. Reviewed vitals, CBC, CMP, troponin, UA, chest x-ray, EKG, prior CTA, ED provider note, discussed with ED provider. Most history obtained from his as he has not been feeling very well. Has been resting. - Continue broad-spectrum antibiotic coverage for pneumonia. - Initiate empiric levofloxacin and vancomycin. - Follow up blood cultures and fungal blood cultures. - Obtain mycobacterial PCR and culture; induce sputum for acid-fast bacilli (AFB) and Pneumocystis jirovecii (PJP). - If not improving, consider further studies for histoplasmosis, blastomycosis, and aspergillosis. 2. 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 therapy: Check tacrolimus level. 3. Weakness: Generalized weakness with hypotension; concern for adrenal insufficiency on chronic corticosteroids : On chronic corticosteroids with recent illness; hypotension and malaise raise concern. - Check serum cortisol. - Consider cosyntropin stimulation test; stress-dose steroids discussed. 4. Elevated lactic acid level: Treat pneumonia. Reassess chemistry. Repeat lactic acid noted improving at 1.5. Currently without signs of sepsis but also immunocompromised. Ongoing infection may be more difficult to assess with potentially atypical symptoms. 5. Esophageal thrush: Oral/throat pain with persistent thrush and suspected herpes simplex : History of prednisone-associated thrush; ongoing oral lesions, tongue/throat pain, odynophagia; clinician notes appearance concerning for herpes simplex. - Resume antifungal therapy with fluconazole (Diflucan) for persistent thrush. Nystatin swish and swallow. - Check herpes studies; treat perioral herpes simplex with acyclovir. 6. Herpes labialis: Perioral lesions suspected herpes labialis. Does have history of cold sores. Family are thinking has been related to person thrush also associated with odynophagia. 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 Does have odynophagia on ST assessment. Will give IV acyclovir 5 mg/kg every 8 hours. Monitor for risk of LAMAR. Reassess renal function. Will reassess. Maintain on isolation for now. Lesions do appear to be crusting. Plan: Chronic kidney disease status post transplant with dialysis/plasmapheresis; risk with nephrotoxic agents : Receives dialysis and twice-weekly plasmapheresis; immunosuppressed; antibiotic selection may impact renal function. - Monitor for risk of acute kidney injury with vancomycin. - Nephrology consultation needed closer to the end of the week. - Plasmapheresis on Saturday and Saturday to continue. Thrombocytopenia (mild) and eosinophilia : Platelets ~120K; eosinophilia noted; additional hematologic evaluation planned. - Check stool ova and parasites (O&P) given eosinophilia. - Check galactomannan and gtia-J-eucpen. - Check cryoglobulins level. - Check peripheral smear. Dysphagia/odynophagia : Painful swallowing associated with oral/throat lesions; aspiration risk considered. - Speech therapy assessment. - Provide soft diet. Hypertension (currently hypotensive; antihypertensives held) : Spouse has been holding home antihypertensives due to low blood pressure; patient received fluid boluses in ED with improvement. - Hold antihypertensives at this time. - Monitor blood pressures. - Monitor for risk of fluid overload; hold further IV fluids for now; reassess volume status and blood pressure. Benign prostatic hyperplasia : Chronic condition. - Continue tamsulosin (Flomax). Hyperlipidemia : Chronic condition. - Continue statin therapy. Follow-up : Ongoing diagnostic follow-up and monitoring per ED/hospital course. - Follow up blood cultures and fungal blood cultures. - Check cytomegalovirus (CMV) studies and CMV serologies. - Continue proton pump inhibitor (PPI) for peptic ulcer disease (PUD). - Monitor risk of Clostridioides difficile with antibiotics. PDMP PDMP Reviewed: Not Reviewed Attestations Medical Necessity Statement*: Admission of over 2 midnights anticipated for assessment management of persistent/nonresolving pneumonia not responsive to outpatient treatment in a gentleman with immunocompromise with immunosuppression therapy due to renal transplantation and additional comorbidities as above. and High MDM includes amount and/or complexity of data reviewed/ordered [ previous or external records, resulted lab(s)/test(s), ordered lab(s)/test(s), independent historian and other healthcare professional discussion] and described risk of complication, morbidity or mortality of management as documented Diagnoses Pneumonia J18.9 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 therapy D84.821 Weakness R53.1 Elevated lactic acid level R79.89 Esophageal thrush B37.81 Herpes labialis B00.1
[2025-05-04 11:32] LABS: Reflex Lactate Order REFLEX LACTIC ORDERD
--- NOTE | 2025-05-04 12:01 | ECG_ITS ---
[facility] Test Date: 2025-05-04 Pat Name: Mark Mccabe Department: Room: Gender: Male [employer] Director: : 1965 Requested By: Franky Lawrence Order Number: [id number] Mirian MD: Vikram Dougherty M.D. Measurements Intervals [place] Rate: 107 P: 28 CT: 177 QRS: -56 QRSD: 115 T: 129 QT: 342 QTc: 458 Interpretive Statements SINUS TACHYCARDIA LEFT ANTERIOR FASCICULAR BLOCK [QRS AXIS <= -45, QR IN I, RS IN II] MODERATE VOLTAGE CRITERIA FOR LVH, CONSIDER NORMAL VARIANT [MEETS CRITERIA IN ONE OF: R(aVL), S(V1), R(V5), R(V5/V6)+S(V1)] POSSIBLE ANTERIOR MYOCARDIAL INFARCTION , PROBABLY OLD [30 ms Q WAVE IN V3/V4, OR R < 0.2 mV IN V4] MODERATE T-WAVE ABNORMALITY, CONSIDER LATERAL ISCHEMIA [-0.1+ mV T-WAVE IN I/aVL/V5/V6] VERSUS REPOLARIZATION ABNORMALITY FROM LVH Compared to ECG 05/04/2025 09:36:50 No significant change Electronically Signed On 05-05-2025 23:18:17 CDT by Vikram Dougherty M.D. [email or web address]
[2025-05-04 12:11] LABS: Lactic Acid level (Lactate) 1.5 mmol/L (0.5-2.2); Troponin 5 2HR 43.69 ng/L (0-15)
[2025-05-04 12:12] LABS: Troponin 5 2HR Delta -13.31 ABS# (0-10)
[2025-05-04 12:31] VITALS: BP 123/89; PULSE 111; O2SAT 98
[2025-05-04 12:37] LABS: LAB Peripheral Smear Sent for Review
[2025-05-04 13:42] VITALS: BMI 26.8
--- NOTE | 2025-05-04 13:43 | PHA.VACGOAL ---
Vancomycin Goal - Goal Vancomycin Goal:: 15-20 mg/L Vancomycin Indication:: Pneumonia - Therapy Current therapy:: Other Antibiotic (LEVOFLOXACIN ) Day of therpy:: Day []of [] . Actual body weight (kg): 200 lb - Data Labs: WBC 7.65 10^3/uL (3.29-11.43) 05/04/25 09:37 RBC 4.01 10^6/uL (3.85-5.65) 05/04/25 09:37 Hgb 10.90 g/dL (11.27-16.99) L 05/04/25 09:37 Hct 36.3 % (37-53) L 05/04/25 09:37 MCV 90.5 fl (82-101) 05/04/25 09:37 MCH 27.2 pg (27-33) 05/04/25 09:37 MCHC 30.0 g/dL (30-55) 05/04/25 09:37 RDW 17.1 % (12.1-15.1) H 05/04/25 09:37 Sodium 136 mmol/L (136-145) 05/04/25 09:37 Potassium 4.9 mmol/L (3.5-5.1) 05/04/25 09:37 Chloride 107 mmol/L (98-107) 05/04/25 09:37 Carbon Dioxide 14 mmol/L (22-29) L 05/04/25 09:37 Anion Gap 19.9 (5-19) H 05/04/25 09:37 BUN 27 mg/dL (6-20) H 05/04/25 09:37 Creatinine 2.3 mg/dL (0.7-1.2) H 05/04/25 09:37 GFR Calculation 29.2 mL/min (90-130) L 05/04/25 09:37 Last dialysis session:: N/A Drug administration history:: Medications Levofloxacin/Dextrose (Levaquin-D5w) 750 mg in 150 mls @ 100 mls/hr IV Q24H [facility]; Protocol Discontinued Medications Ceftazidime (Ceftazidime 2,000 Mg Sdv) 2,000 mg IVP ONCE ONE; Protocol Stop: 05/04/25 10:16 Last Admin: 05/04/25 10:44 Dose: 2,000 mg Treatment plan:: new consult Regimen:: STARTING 2500 MG LOADING DOSE AND MAINTENANCE DOSE OF 1250 MG Q24H STARTING 05/05/25 AT 1400. Follow up:: WILL CONSIDER OBTAINING EARLY RANDOM LEVEL TO DETERMINE IF PATIENT IS SUPRATHERAPEUTIC. WILL OBTAIN STEADY STATE TROUGH PRIOR TO 4TH DOSE. Rationale:: Problems (Last Reviewed 05/04/25 @ 12:50 by Rober Krueger MD) Pneumonia (Acute) PATIENT PRESENTS WITH DECREASED RENAL FUNCTION. STARTING 2500 MG LOADING DOSE PER PROTOCOL AND MAINTENANCE DOSE OF 1250 MG Q24H PER PROTOCOL.
[2025-05-04 13:56] VITALS: BP 149/80; PULSE 98; O2SAT 95
[2025-05-04 13:59] VITALS: BP 121/78; PULSE 123; RESP 20; TEMP 36.8; O2SAT 95
[2025-05-04 14:37] LABS: Cosyntropin Baseline 1.53 mcg/dL
--- NOTE | 2025-05-04 15:40 | ECG_ITS ---
[facility] Test Date: 2025-05-04 Pat Name: Mark Mccabe Department: Room: Gender: Male Supervisor Metalizing: : 1965 Requested By: Franky Lawrence Order Number: [id number] Vela MD: Vikram Dougherty M.D. Measurements Intervals [place] Rate: 99 P: 63 NC: 187 QRS: -56 QRSD: 108 T: 125 QT: 354 QTc: 455 Interpretive Statements SINUS RHYTHM LEFT ANTERIOR FASCICULAR BLOCK [QRS AXIS <= -45, QR IN I, RS IN II] MODERATE VOLTAGE CRITERIA FOR LVH, CONSIDER NORMAL VARIANT [MEETS CRITERIA IN ONE OF: R(aVL), S(V1), R(V5), R(V5/V6)+S(V1)] POSSIBLE ANTEROLATERAL MYOCARDIAL INFARCTION , OF INDETERMINATE AGE [30 ms Q WAVE IN I/aVL/V3-V6] ST-T WAVE ABNORMALITY SECONDARY TO LEFT VENTRICULAR HYPERTROPHY WITH REPOLARIZATION ABNORMALITY VERSUS ISCHEMIA Compared to ECG 05/04/2025 12:01:18 No significant change Electronically Signed On 05-05-2025 23:20:08 CDT by Vikram Dougherty M.D. [email or web address]
[2025-05-04] MEDS: cosyntropin 0.25 mg SDV IVP (15:44)
[2025-05-04 15:45] VITALS: BP 121/76; PULSE 123; RESP 20; TEMP 36.7; O2SAT 97
[2025-05-04] MEDS: levofloxacin-dextrose 5 % 750 MG/150 ML PREMIX 100 MG IV (15:51)
[2025-05-04 16:26] LABS: Troponin 5 6HR 44.71 ng/L (0-15)
[2025-05-04 16:27] LABS: Troponin 5 6HR Delta -12.29 ng/L (0-12)
[2025-05-04 16:56] LABS: Cosyntropin 30 Minute 2.86 mcg/dL
[2025-05-04] MEDS: nystatin 100,000 unit/mL UDC 5 mL 200000 UNIT PO ×2 (17:24→20:10)
[2025-05-04 17:25] LABS: Cosyntropin 1 Hour 3.52 mcg/dL
[2025-05-04] MEDS: hydrocortisone 100 mg/2 mL SDV IVP (17:25)
[2025-05-04 17:30] LABS: MRSA PCR OZH (swab) NOT DETECTED (Negative)
[2025-05-04] MEDS: HYDROmorphone tab 2 MG TABLET 4 MG PO (17:35)
[2025-05-04] MEDS: fluconazole premix 200 MG/100 ML PREMIX 100 MG IV (17:38)
[2025-05-04] MEDS: NON-FORMULARY MEDICATION (Mycophenolate Sodium 180 mg tablet,delayed release (DR/EC)) 180 EACH PO (18:14)
[2025-05-04 20:00] VITALS: BP 97/66; PULSE 133; RESP 16; TEMP 36.8; O2SAT 97
[2025-05-04] MEDS: ATORVASTATIN 10 MG TABLET PO (20:10)
[2025-05-05] VITALS (10 sets, daily range): BP systolic 91–124; BP diastolic 60–80; PULSE 79–157; RESP 16–18; TEMP 36.4–37.1; O2SAT 96–97
[2025-05-05] MEDS: hydrocortisone 100 mg/2 mL SDV IVP ×5 (00:15→23:46)
[2025-05-05] MEDS: HYDROmorphone tab 2 MG TABLET 4 MG PO ×2 (00:18→09:40)
[2025-05-05 04:48] LABS: Hematocrit 30.2 % (37-53); Hemoglobin 9.60 g/dL (11.27-16.99); Mean Corpuscular HGB Conc 31.8 g/dL (30-55); Mean Corpuscular Hemoglobin 28.3 pg (27-33); Mean Corpuscular Volume 89.1 fl (82-101); Platelet Count 106 10^3/cmm (157-399); Red Blood Count 3.39 10^6/uL (3.85-5.65); White Blood Count 6.78 10^3/uL (3.29-11.43)
[2025-05-05 05:14] LABS: Alanine Aminotransferase 8 U/L (0-41); Albumin Level 3.8 g/dL (3.5-5.2); Alkaline Phosphatase 33 U/L (40-130); Anion Gap 16.9 (5-19); Aspartate Amino Transferase 8 U/L (0-40); Blood Urea Nitrogen 23 mg/dL (6-20); Calcium 8.5 mg/dL (8.5-10.5); Carbon Dioxide 12 mmol/L (22-29); Chloride 110 mmol/L (98-107); Creatinine Clr Calc Pharmacy 44.1881; Globulin 0.7 g/dL (1.3-4.6); Glucose 138 mg/dL (65-115); Osmolality Calculated 284 mOsm/kg (285-295); Potassium 4.9 mmol/L (3.5-5.1); Sodium 134 mmol/L (136-145); Total Protein 4.5 g/dL (6.6-8.7)
[2025-05-05 05:44] LABS: Slide Review Slide Review Perform
[2025-05-05 05:45] LABS: Absolute Segmented Neutrophil 5.4 10/cmm (1.6-7.1); Band Neutrophils Absolute 0.5 10^3/cmm (0.0-1.2); Total Cells Counted 100 (0-100)
[2025-05-05] MEDS: ferrous sulfate EC 325 mg Tablet PO (05:48)
[2025-05-05] MEDS: piperacillin-tazobactam 3.375 GM in sodium chloride 0.9% (plus) 50 ML IV ×2 (08:36→20:54)
[2025-05-05] MEDS: nystatin 100,000 unit/mL UDC 5 mL 200000 UNIT PO ×4 (08:37→20:54)
[2025-05-05] MEDS: NON-FORMULARY MEDICATION (Mycophenolate Sodium 180 mg tablet,delayed release (DR/EC)) 180 EACH PO ×2 (08:41→17:15)
--- NOTE | 2025-05-05 09:23 | PC.CHAP ---
Pastoral Care Encounter/Spiritual Assessment Type of Contact [] Declined junior programmer visit [] Patient/Family/Request visit [] Outpatient visit [] Follow-up visit [] Physician referral [] Code/Alert [] Routine visit [] Staff referral [] Actively dying [] Patient sleeping [] Family support [] [] Out of room [] Palliative care [] [] Receiving care in room [] Pre-surgical visit [] Trauma [] Long length of stay [] ICU visit [x] Other:Contact precautions. No visit. Relational/Emotional Strength [] Patient feels connected with others/family/visitors/staff [] Distress [] Loneliness/isolation [] Abandonment Spirituality of Patient [] Person of Lashawn [] Attends Evangelical of their Lashawn [] Believes in Prayer [] Reads Bible or Anglican materials [] There are Spiritual issues to be addressed Jig Boring Machine Operator For Metal Interventions [] Prayer [] Active listening [] Non-anxious presence [] Spiritual/emotional support [] Crisis/trauma care [] Spiritual counseling [] Bereavement support [] Provided bereavement packet [] Provided Bible/devotional materials [] Provided toy/stuffed animal, coloring book to patient or family member [] Provided Communion [] Anointing/[place] [] Salvation [] Completed spiritual assessment [] Other: Impact on Illness or Injury [] Angry [] Fearful [] Anxious [] Often cries [] Exhaustion [] Unable to work [] Unable to attend confucianism [] Unable to walk/stand [] Unable to read [] Unable to drive [] Unable to eat/drink [] Unable to sleep [] Unable to be with family [] Patient intubated [] Other: Summary Time spent with patient
[2025-05-05 14:46] LABS: Tacrolimus, Highly Sensitive 14.4 mcg/L
--- NOTE | 2025-05-05 14:52 | P.PN_ITS ---
Subjective 2 Subjective: He is feeling overall slightly better, having mild frontal headache. Found to be significantly orthostatic. Vitals/I&O/Wt Last Vital Signs Temp 97.8 F 05/05/25 11:41 Pulse 129 H 05/05/25 13:38 Resp 16 05/05/25 11:41 BP 112/78 05/05/25 11:41 Pulse Ox 97 05/05/25 11:41 O2 Del Method Room Air 05/05/25 11:41 05/04/25 05/05/25 05/05/25 22:59 06:59 14:59 Intake Total 886.667 / 4608.207 260 / 4868.207 530 / 530 Output Total 300 / 300 250 / 550 250 / 250 Balance 586.667 / 4308.207 10 / 4318.207 280 / 280 Weight last 48 hrs Weight 89.811 kg Weight 89.613 kg Weight 90.718 kg Physical Exam 2 Const: COMMON NORMALS: patient oriented x3 and alert GENERAL APPEARANCE: c ooperative ORIENTATION/CONSCIOUSNESS: Yes awake HENMT: COMMON NORMALS: oropharynx normal Neck/C-Spine: COMMON NORMALS: no JVD Resp: COMMON NORMALS: normal respiratory effort and clear to auscultation bilaterally AUSCULTATION: clear to auscultation bilaterally Cardio: COMMON NORMALS: no JVD, regular rhythm, S1 normal heart sound present, S2 normal heart sound present and No murmurs present (Cardio) RHYTHM: regular rhythm HEART SOUNDS: S1 normal heart sound present and S2 normal heart sound present GI: COMMON NORMALS: Normal to inspection, nondistended, normoactive bowel sounds present, Soft to palpation and non-tender PALPATION: Yes Soft to palpation Extremity: COMMON NORMALS: no joint enlargement and no pedal edema Neuro: COMMON NORMALS: patient oriented x3 and moves all extremities S ENSORIUM/ORIENTATION: Yes alert Skin: COMMON NORMALS: no rashes or lesions noted GENERAL SKIN EXAM: no rashes or lesions noted Data 05/05/25 04:40 05/05/25 04:40 Micro: Microbiology 05/04/25 10:01 Blood Culture - Preliminary Blood NEGATIVE TO DATE 05/04/25 10:06 Blood Culture - Preliminary Blood NEGATIVE TO DATE 05/04/25 10:22 Legionella Urinary Antigen - Final Urine,Voided Bacterial Antigens - Final A&P Assessment and plan 1. Pneumonia: Yesterday with red man syndrome during vancomycin infusion. Reviewed vitals, CBC. Noted without leukocytosis, afebrile. MRSA PCR reviewed, noted negative. Vancomycin DC'd. Continue with Levaquin, add Zosyn empirically for now. Monitor for risk of SJS, cytopenias, C. difficile. Still tachycardic 120s. Significantly orthostatic, suspected adrenal insufficiency. Legionella antigen noted positive. Continue Levaquin for Legionella pneumonia. He is going to provide sputum culture when able. Reviewed blood culture, so far negative. Additional studies requested for induction of sputum for PCP, AFB with RT. Noted still with bandemia. 1% myelocytes. No eosinophils today. Follow-up peripheral smear. Pneumonia vs hypersensitivity pneumonitis (immunosuppressed host) : Recent CTA on 04/29 showed multifocal right-lung opacifications (pneumonitis/hypersensitivity pneumonitis); now returns with weakness, hypotension, tachycardia, SOB, cough. Chest X-ray referenced today. Discussed with nursing, caseworker protective services. - If not improving, consider further studies for histoplasmosis, blastomycosis, and aspergillosis. 2. 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 therapy: Reviewed tacrolimus level. In range. 3. Weakness: Generalized weakness with hypotension; concern for adrenal insufficiency on chronic corticosteroids : On chronic corticosteroids with recent illness; hypotension and malaise raise concern. Reviewed serum cortisol, serum cosyntropin stim test. Continue hydrocortisone for adrenal insufficiency. Monitor for risk of hyperglycemia, hypertension, gastritis, encephalopathy with IV steroids. Treat Legionella pneumonia. 4. Elevated lactic acid level: Treat pneumonia. 5. Esophageal thrush: Oral/throat pain with persistent thrush and suspected herpes simplex : History of prednisone-associated thrush; ongoing oral lesions, tongue/throat pain, odynophagia; clinician notes appearance concerning for herpes simplex. - Resume antifungal therapy with fluconazole (Diflucan) for persistent thrush. Nystatin swish and swallow. - Pending herpes studies; treat perioral herpes simplex with acyclovir. 6. Herpes labialis: Perioral lesions suspected herpes labialis. Does have history of cold sores. Family are thinking has been related to person thrush also associated with odynophagia. 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 Does have odynophagia on ST assessment. Will give IV acyclovir 5 mg/kg every 8 hours. Monitor for risk of LAMAR. Reassess renal function. Will reassess. Maintain on isolation for now. Lesions do appear to be crusting. Plan: Chronic kidney disease status post transplant with dialysis/plasmapheresis; risk with nephrotoxic agents : Reviewed chemistry. Repeat. Receives dialysis and twice-weekly plasmapheresis; immunosuppressed; antibiotic selection may impact renal function. - Monitor for risk of acute kidney injury with vancomycin. - Nephrology consultation needed closer to the end of the week. - Plasmapheresis on Saturday and Saturday to continue. Thrombocytopenia (mild) and eosinophilia : Platelets ~120K; eosinophilia noted; additional hematologic evaluation planned. - Check stool ova and parasites (O&P) given eosinophilia. - Check galactomannan and [id number]. - Check cryoglobulins level. - Pending peripheral smear. Dysphagia/odynophagia : Painful swallowing associated with oral/throat lesions; aspiration risk considered. Discussed with ST. Appreciate recommendation. - Speech therapy assessment. - Provide soft diet. Hypertension (currently hypotensive; antihypertensives held) : Spouse has been holding home antihypertensives due to low blood pressure; patient received fluid boluses in ED with improvement. - Hold antihypertensives at this time. - Monitor blood pressures. - Monitor for risk of fluid overload; hold further IV fluids for now; reassess volume status and blood pressure. Benign prostatic hyperplasia : Chronic condition. - Continue tamsulosin (Flomax). Hyperlipidemia : Chronic condition. - Continue statin therapy. Follow-up : Ongoing diagnostic follow-up and monitoring per ED/hospital course. - Follow up blood cultures and fungal blood cultures. - Check cytomegalovirus (CMV) studies and CMV serologies. - Continue proton pump inhibitor (PPI) for peptic ulcer disease (PUD). - Monitor risk of Clostridioides difficile with antibiotics. PDMP PDMP Reviewed: Not Reviewed Attestations 2 Medical Necessity Statement*: Continue admission for assessment and management of persistent pneumonia angina with immunosuppression, Legionella pneumonia, additional comorbidities as above. and High MDM includes amount and/or complexity of data reviewed/ordered [ resulted lab(s)/test(s), ordered lab(s)/test(s) and other healthcare professional discussion] and described risk of complication, morbidity or mortality of management as documented Diagnoses Pneumonia J18.9 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 therapy D84.821 Weakness R53.1 Elevated lactic acid level R79.89 Esophageal thrush B37.81 Herpes labialis B00.1
[2025-05-05] MEDS: fluconazole premix 200 MG/100 ML PREMIX 100 MG IV (15:04)
--- NOTE | 2025-05-05 16:19 | ECG_ITS ---
[facility] Date: 2025-05-05 Pat Name: Mark Mccabe Department: Room: 276 Gender: Male [employer]: : 1965 Requested By: Rober Krueger Order Number: [id number] Mirian MD: Vikram Dougherty M.D. Measurements Intervals [place] Rate: 124 P: 3 WI: 161 QRS: -44 QRSD: 133 T: 120 QT: 318 QTc: 458 Interpretive Statements SINUS TACHYCARDIA LEFT AXIS DEVIATION [QRS AXIS < -30] INTRAVENTRICULAR CONDUCTION DELAY [130+ ms QRS DURATION] LEFT VENTRICULAR HYPERTROPHY AND ST-T CHANGE [VOLTAGE CRITERIA PLUS ST/T ABNORMALITY] POSSIBLE ANTEROSEPTAL MYOCARDIAL INFARCTION , OF INDETERMINATE AGE [30 ms Q WAVE IN V1-V4] Compared to ECG 05/04/2025 12:07:30 QRS DURATION HAS INCREASED AND ANTEROLATERAL ST DEPRESSION HAS DECREASED Electronically Signed On 05-05-2025 22:25:22 CDT by Vikram Dougherty M.D. [email or web address]
[2025-05-05] MEDS: ATORVASTATIN 10 MG TABLET PO (20:54)
[2025-05-06] VITALS (8 sets, daily range): BP systolic 115–133; BP diastolic 70–82; PULSE 79–113; RESP 16–17; TEMP 36.6–37; O2SAT 92–98
[2025-05-06 04:51] LABS: Hematocrit 27.1 % (37-53); Hemoglobin 8.80 g/dL (11.27-16.99); Mean Corpuscular HGB Conc 32.5 g/dL (30-55); Mean Corpuscular Hemoglobin 28.2 pg (27-33); Mean Corpuscular Volume 86.9 fl (82-101); Nucleated Red Blood Cells % 0 %; Platelet Count 113 10^3/cmm (157-399); Red Blood Count 3.12 10^6/uL (3.85-5.65); White Blood Count 8.11 10^3/uL (3.29-11.43)
[2025-05-06 05:12] LABS: Alanine Aminotransferase 9 U/L (0-41); Albumin Level 3.4 g/dL (3.5-5.2); Alkaline Phosphatase 29 U/L (40-130); Anion Gap 17.9 (5-19); Aspartate Amino Transferase 9 U/L (0-40); Blood Urea Nitrogen 27 mg/dL (6-20); Calcium 8.4 mg/dL (8.5-10.5); Carbon Dioxide 14 mmol/L (22-29); Chloride 110 mmol/L (98-107); Creatinine Clr Calc Pharmacy 34.3685; Globulin 0.8 g/dL (1.3-4.6); Glucose 133 mg/dL (65-115); Osmolality Calculated 291 mOsm/kg (285-295); Potassium 4.9 mmol/L (3.5-5.1); Sodium 137 mmol/L (136-145); Total Protein 4.2 g/dL (6.6-8.7)
[2025-05-06 05:21] LABS: Slide Review Slide Review Perform
[2025-05-06] MEDS: hydrocortisone 100 mg/2 mL SDV IVP ×2 (05:32→12:26)
[2025-05-06] MEDS: ferrous sulfate EC 325 mg Tablet PO (05:32)
--- NOTE | 2025-05-06 09:00 | P.PN_ITS ---
Subjective 2 Subjective: He is overall feeling little better, still bothered by mild headache, although it is slightly better. Odynophagia with slight improvement, but still persisting. Tachycardia has improved. Breathing is improved. No additional new symptoms. On discussion of Legionella pneumonia with patient and his the confirmed that they do have a humidifier at home to the use intermittently. Discussed other sources possibly central AC for Legionella colonization and risk of reinfection. Discussed discarding and/or sanitizing humidifier, consideration of sanitizing the AC unit. Vitals/I&O/Wt Last Vital Signs Temp 98.2 F 05/06/25 07:44 Pulse 98 05/06/25 07:44 Resp 17 05/06/25 07:44 BP 133/79 05/06/25 07:44 Pulse Ox 95 05/06/25 07:44 O2 Del Method Room Air 05/06/25 07:44 05/05/25 05/06/25 05/06/25 22:59 06:59 14:59 Intake Total 300 / 1090 310 / 1400 Output Total 220 / 470 200 / 670 Balance 80 / 620 110 / 730 Weight last 48 hrs Weight 89.811 kg Weight 89.613 kg Weight 90.718 kg Physical Exam 2 Narrative: Accompanied by his Const: COMMON NORMALS: patient oriented x3 and alert GENERAL APPEARANCE: c ooperative ORIENTATION/CONSCIOUSNESS: Yes awake HENMT: COMMON NORMALS: oropharynx normal Neck/C-Spine: COMMON NORMALS: no JVD Resp: COMMON NORMALS: normal respiratory effort and clear to auscultation bilaterally AUSCULTATION: clear to auscultation bilaterally Cardio: COMMON NORMALS: no JVD, regular rhythm, S1 normal heart sound present, S2 normal heart sound present and No murmurs present (Cardio) RHYTHM: regular rhythm HEART SOUNDS: S1 normal heart sound present and S2 normal heart sound present GI: COMMON NORMALS: Normal to inspection, nondistended, normoactive bowel sounds present, Soft to palpation and non-tender PALPATION: Yes Soft to palpation Extremity: COMMON NORMALS: no joint enlargement and no pedal edema Neuro: COMMON NORMALS: patient oriented x3 and moves all extremities S ENSORIUM/ORIENTATION: Yes alert Skin: COMMON NORMALS: no rashes or lesions noted GENERAL SKIN EXAM: no rashes or lesions noted Data 05/06/25 04:31 05/06/25 04:31 Micro: Microbiology 05/04/25 10:01 Blood Culture - Preliminary Blood NEGATIVE TO DATE 05/04/25 10:06 Blood Culture - Preliminary Blood NEGATIVE TO DATE A&P Assessment and plan 1. Pneumonia: Reviewed vitals, CBC, chemistry, blood culture, sputum culture. Extension noted doing well on room air. Without fever. No leukocytosis. Continue treatment of Legionella pneumonia. Tachycardia also with improvement likely related to adrenal insufficiency, pneumonia, as well as withdrawal from metoprolol. Improved with resumption of low-dose metoprolol, continue metoprolol 25 mg twice daily. Monitor. Discussed with speech therapist, persistence of odynophagia. Continue nystatin swish and swallow, Diflucan, continue acyclovir. Phenaseptic spray. Minced diet. Monitor for risk of SJS, cytopenias, C. difficile with antibiotic. For now empirically on Levaquin and Zosyn. Wean down IV corticosteroids to oral and reassess adrenal insufficiency. He is going to provide sputum culture when able. Reviewed blood culture, so far negative. Discussed with nursing, therapeutic case manager. Follow-up induction of sputum for PCP, AFB with RT. CBC, bandemia resolving. Follow-up peripheral smear. 2. 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 therapy: Reviewed tacrolimus level. In range. 3. Weakness: Generalized weakness with hypotension; concern for adrenal insufficiency on chronic corticosteroids. Combination Legionella pneumonia, adrenal insufficiency with hypotension. Reviewed serum cortisol, serum cosyntropin stim test. Continue hydrocortisone for adrenal insufficiency. Monitor for risk of hyperglycemia, hypertension, gastritis, encephalopathy with IV steroids. Treat Legionella pneumonia. Continue treatment. 4. Elevated lactic acid level: Resolved. 5. Esophageal thrush: Oral/throat pain with persistent thrush and suspected herpes simplex : History of prednisone-associated thrush; ongoing oral lesions, tongue/throat pain, odynophagia; clinician notes appearance concerning for herpes simplex. - Resume antifungal therapy with fluconazole (Diflucan) for persistent thrush. Nystatin swish and swallow. - Pending herpes studies; treat perioral herpes simplex with acyclovir. 6. Herpes labialis: Perioral lesions suspected herpes labialis. Does have history of cold sores. Family are thinking has been related to person thrush also associated with odynophagia. 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 Does have odynophagia on ST assessment. Will give IV acyclovir 5 mg/kg every 8 hours. Monitor for risk of LAMAR. Reassess renal function. Will reassess. Maintain on isolation for now. Lesions do appear to be crusting. Plan: Chronic kidney disease status post transplant with dialysis/plasmapheresis; risk with nephrotoxic agents : Will need plasmapheresis on Saturday. Reaching out to nephrology for consultation. Reviewed chemistry. Repeat. Receives dialysis and twice-weekly plasmapheresis; immunosuppressed; antibiotic selection may impact renal function. - Monitor for risk of acute kidney injury with vancomycin. - Nephrology consultation needed closer to the end of the week. - Plasmapheresis on Saturday and Saturday to continue. Thrombocytopenia (mild) and eosinophilia : Platelets ~120K; eosinophilia noted; additional hematologic evaluation planned. - Check stool ova and parasites (O&P) given eosinophilia. - Check galactomannan and [id number]. - Check cryoglobulins level. - Pending peripheral smear. Dysphagia/odynophagia : Painful swallowing associated with oral/throat lesions; aspiration risk considered. Discussed with ST. Appreciate recommendation. - Speech therapy assessment. - Provide soft diet. Hypertension (currently hypotensive; antihypertensives held) : Spouse has been holding home antihypertensives due to low blood pressure; patient received fluid boluses in ED with improvement. - Hold antihypertensives at this time. - Monitor blood pressures. - Monitor for risk of fluid overload; hold further IV fluids for now; reassess volume status and blood pressure. Benign prostatic hyperplasia : Chronic condition. - Continue tamsulosin (Flomax). Hyperlipidemia : Chronic condition. - Continue statin therapy. Follow-up : Ongoing diagnostic follow-up and monitoring per ED/hospital course. - Follow up blood cultures and fungal blood cultures. - Check cytomegalovirus (CMV) studies and CMV serologies. - Continue proton pump inhibitor (PPI) for peptic ulcer disease (PUD). - Monitor risk of Clostridioides difficile with antibiotics. PDMP PDMP Reviewed: Not Reviewed Attestations 2 Medical Necessity Statement*: Continue admission for assessment and management of persistent pneumonia angina with immunosuppression, Legionella pneumonia, additional comorbidities as above. and High MDM includes amount and/or complexity of data reviewed/ordered [ resulted lab(s)/test(s) and other healthcare professional discussion] and described risk of complication, morbidity or mortality of management as documented Diagnoses Pneumonia J18.9 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 therapy D84.821 Weakness R53.1 Elevated lactic acid level R79.89 Esophageal thrush B37.81 Herpes labialis B00.1
[2025-05-06] MEDS: piperacillin-tazobactam 3.375 GM in sodium chloride 0.9% (plus) 50 ML IV ×2 (09:03→20:33)
[2025-05-06] MEDS: nystatin 100,000 unit/mL UDC 5 mL 200000 UNIT PO ×4 (09:04→20:34)
[2025-05-06] MEDS: NON-FORMULARY MEDICATION (Mycophenolate Sodium 180 mg tablet,delayed release (DR/EC)) 180 EACH PO ×2 (10:43→17:26)
[2025-05-06] MEDS: levofloxacin-dextrose 5 % 750 MG/150 ML PREMIX 100 MG IV (14:55)
[2025-05-06] MEDS: fluconazole premix 200 MG/100 ML PREMIX 100 MG IV (16:20)
--- NOTE | 2025-05-06 17:13 | PM.CONSULT ---
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 Patient followed at [facility] for transplant. Pt had FSGS post transplant and pt was started on plasmapheresis x twice per week. Patient is currently on immunosuppression with Myfortic prednisone and tacrolimus. Patient presented to the emergency department due to generalized weakness dizziness and was noted to be hypotensive. Chest x-ray showed pneumonia and CT angiogram showed multifocal calcifications. Patient currently receiving antibiotics for pneumonia. Blood pressures have improved. Review of Systems Narrative: negative Medications/Allergies Home Medications ?Medication ?Instructions ?Recorded ?Confirmed ?Last Taken ?Type cholecalciferol (vitamin D3) 25 25 mcg PO QAM 01/14/20 05/04/25 05/04/25 08:00 History mcg (1,000 unit) capsule fluticasone propionate 50 2 spray intranasal DAILY PRN 01/14/20 05/04/25 03/18/25 07:00 History mcg/actuation nasal Allergy Symptoms spray,suspension tamsulosin 0.4 mg capsule 0.4 mg PO QAM 01/14/20 05/04/25 05/04/25 09:00 History atorvastatin 10 mg tablet 10 mg PO BEDTIME 02/13/21 05/04/25 05/03/25 19:00 History famotidine 20 mg tablet 20 mg PO BID 07/11/21 05/04/25 05/04/25 08:00 History hydromorphone 4 mg tablet 4 mg PO Q6H PRN Pain 07/11/21 05/04/25 02/19/25 History diphenoxylate-atropine 2.5 2 tab PO QID PRN Diarrhea 01/16/22 05/04/25 11/28/22 History mg-0.025 mg tablet (Lomotil) prednisone 5 mg tablet 5 mg PO QAM 01/16/22 05/04/25 05/04/25 08:00 History acetaminophen 325 mg capsule 650 mg PO Q4H PRN Pain 03/20/22 05/04/25 11/28/22 History artificial tears(hypromellose) 0.3 1 drp ophthalmic (eye) DAILY PRN 03/13/23 05/04/25 Unknown History % eye drops Itching losartan 50 mg tablet 25 mg PO DAILY 03/13/23 05/04/25 03/18/25 History patiromer calcium sorbitex 16.8 See Rx Instructions .Route 03/13/23 05/04/25 03/17/25 12:00 History gram oral powder packet (Veltassa) .COMPLEX PRN Hyperkalemia pantoprazole 40 mg tablet,delayed 40 mg PO BID 6 weeks #84 tabs 04/12/23 05/04/25 05/04/25 08:00 Rx release (Protonix) empagliflozin 25 mg tablet 25 mg PO QAM 06/06/23 05/04/25 05/04/25 08:00 History (Jardiance) ferrous sulfate 325 mg (65 mg 325 mg PO QAM 08/08/23 05/04/25 05/04/25 08:00 History iron) tablet filgrastim 480 mcg/1.6 mL 480 mcg SUBCUT DAILY PRN UNKNOWN 08/08/23 05/04/25 Unknown History injection solution (Neupogen) finasteride 5 mg tablet 10 mg PO QAM 12/11/23 05/04/25 05/04/25 08:00 History ipratropium bromide 42 mcg (0.06 2 spray intranasal QID ALLERGIES 12/11/23 05/04/25 07/15/24 History %) nasal spray calcium polycarbophil 625 mg 625 mg PO QAM 07/15/24 05/04/25 05/03/25 08:00 History tablet (FiberCon) duloxetine 60 mg capsule,delayed 60 mg PO QAM 07/15/24 05/04/25 05/03/25 12:00 History release gabapentin 300 mg capsule 300 mg PO QAM 07/15/24 05/04/25 05/04/25 08:00 History megestrol 400 mg/10 mL (40 mg/mL) 400 mg PO QAM 07/15/24 05/04/25 05/03/25 12:00 History oral suspension sodium bicarbonate 650 mg tablet 1,300 mg PO BID 07/15/24 05/04/25 05/04/25 09:00 History duloxetine 30 mg capsule,delayed 30 mg PO BEDTIME 02/20/25 05/04/25 05/03/25 12:00 History release ondansetron 4 mg disintegrating 4 mg PO Q8H PRN Nausea And Vomiting 02/20/25 05/04/25 Unknown History tablet tacrolimus 1 mg tablet,extended 1 mg PO DAILY 02/20/25 05/04/25 05/04/25 08:00 History release 24 hr (Envarsus XR) doxycycline hyclate 100 mg tablet 100 mg PO BID 7 days #14 tabs 04/29/25 05/04/25 05/04/25 08:00 Rx metoprolol succinate 100 mg 100 mg PO BID 05/04/25 05/04/25 Unknown History tablet,extended release 24 hr mycophenolate sodium 180 mg 180 mg PO BID 05/04/25 05/04/25 05/04/25 08:00 History tablet,delayed release oxycodone 5 mg tablet 5 mg PO Q6H PRN Pain 05/04/25 05/04/25 Unknown History prednisone 10 mg tablet See Rx Instructions .Route .COMPLEX 05/04/25 05/04/25 Unknown History Allergies Allergy/AdvReac Type Severity Reaction Status Date / Time No Known Allergies Allergy Verified 08/06/24 09:03 Current Medications Generic Name Dose Route Start Last Admin Trade Name Freq PRN Reason Stop Dose Admin Acetaminophen 650 mg 05/04/25 13:30 05/05/25 17:13 Acetaminophen 325 Mg Tablet PO 650 mg Q6H PRN Administration Mild/Mod Pain Or Temp >/= 101 Atorvastatin Calcium 10 mg 05/04/25 21:00 05/05/25 20:54 Atorvastatin 10 Mg Tablet PO 10 mg BEDTIME NERY Administration Duloxetine HCl 30 mg 05/04/25 21:00 05/05/25 20:54 Duloxetine 30 Mg Capsule PO 30 mg BEDTIME NERY Administration Duloxetine HCl 60 mg 05/05/25 06:00 05/06/25 05:36 Duloxetine 60 Mg Capsule PO 60 mg QAM NERY Administration Enoxaparin Sodium 30 mg 05/04/25 13:30 05/06/25 13:41 Enoxaparin 30 Mg/0.3 Ml Syringe SUBCUT 30 mg Q24H NERY Administration Ferrous Sulfate 325 mg 05/05/25 06:00 05/06/25 05:32 Ferrous Sulfate Ec 325 Mg Tablet PO 325 mg QAM NERY Administration Finasteride 10 mg 05/05/25 06:00 05/06/25 05:32 Finasteride 5 Mg Tablet PO 10 mg QAM NERY Administration Hydromorphone HCl 4 mg 05/04/25 15:47 05/05/25 09:40 Hydromorphone Tab 2 Mg Tablet PO 4 mg Q6H PRN Administration PAIN Levofloxacin/Dextrose 750 mg in 150 mls @ 100 mls/hr 05/04/25 14:00 05/06/25 16:48 Levaquin-D5w IV Infused Q48H NERY Infusion Protocol Fluconazole 200 mg in 100 mls @ 100 mls/hr 05/04/25 15:45 05/06/25 16:20 Diflucan Premix IV 100 mls/hr Q24H NERY Administration Acyclovir 500 mg/ Sodium 260 mls @ 110 mls/hr 05/05/25 12:30 05/06/25 14:59 Chloride IV Infused Q12H NERY Infusion Piperacillin Sod/Tazobactam 50 mls @ 12.5 mls/hr 05/05/25 07:45 05/06/25 12:27 Sod 3.375 gm/ Sodium Chloride IV Infused Q12H NERY Infusion Protocol Megestrol Acetate 400 mg 05/05/25 06:00 05/06/25 05:32 Megestrol 400 Mg/10 Ml Udc PO 400 mg QAM NERY Administration Metoprolol Tartrate 25 mg 05/05/25 21:00 05/06/25 09:04 Metoprolol Tartrate 25 Mg Tablet PO 25 mg BID@0900,2100 NERY Administration Non-Formulary Medication 180 mg 05/04/25 18:15 05/06/25 10:43 Mycophenolate Sodium PO 180 mg BID NERY Administration Non-Formulary Medication 1 mg 05/05/25 09:00 05/06/25 10:43 Tacrolimus [Envarsus Xr] PO 1 mg DAILY NERY Administration Nystatin 200,000 unit 05/04/25 17:00 05/06/25 16:20 Nystatin 100,000 Unit/Ml Udc 5 Ml PO 200,000 unit QID NERY Administration Pantoprazole Sodium 40 mg 05/04/25 18:00 05/06/25 09:[address] 40 Mg Tablet PO 40 mg BID NERY Administration Sodium Bicarbonate 1,300 mg 05/04/25 18:00 05/06/25 09:04 Sodium Bicarbonate 650 Mg Tablet PO 1,300 mg BID NERY Administration Tamsulosin HCl 0.4 mg 05/05/25 06:00 05/06/25 05:32 Tamsulosin 0.4 Mg Capsule PO 0.4 mg QAM NERY Administration PFSH Acute PFSH: Medical History (Updated 05/06/25 @ 18:11 by Torrie Leonardo MD) 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 therapy Gout Benign prostatic hyperplasia Peptic ulcer disease Obstructive sleep apnea Fibromyalgia Degenerative joint disease of spine Degenerative arthritis History of peritonitis In association with peritoneal dialysis FSGS (focal segmental glomerulosclerosis), tip variant with nephrosis Pulmonary hypertension associated with ESRD on dialysis Hypertension Hyperlipidemia ESRD (end stage renal disease) 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 Carpal tunnel syndrome, bilateral upper limbs Surgical History Hx of colonoscopy less than 1 year, no polyps History of esophagogastroduodenoscopy (EGD) less than 1 year History of bilateral carpal tunnel release History of right breast biopsy for benign disease History of thoracotomy with chest tube, for pneumonia History of kidney transplant (09/2021) History of cholecystectomy History of umbilical hernia repair History of arthroscopic knee surgery x 3 History of arthroscopy of right shoulder Family History Father CAD (coronary artery disease) Chronic kidney disease (CKD) Mother Arthritis Other Diabetes Hyperlipidemia Hypertension Denies family history of Clotting disorder Dementia Psychiatric illness Suicide Anesthesia complication Bleeding disorder Lung disease Cancer Stroke Social History Smoking and tobacco/nicotine status: former use of tobacco/nicotine Alcohol intake: never Substance/Drug Use: never Household members: spouse Marital status: Current occupational status: disabled Vitals/I&O/Wt Last Vital Signs Temp 98.6 F 05/06/25 16:00 Pulse 103 H 05/06/25 16:00 Resp 17 05/06/25 16:00 BP 116/80 05/06/25 16:00 Pulse Ox 96 05/06/25 16:00 O2 Del Method Room Air 05/06/25 16:00 05/06/25 05/06/25 05/06/25 06:59 14:59 22:59 Intake Total 310 / 1400 1030.000 / 1030.000 150 / 1180.000 Output Total 200 / 670 800 / 800 Balance 110 / 730 230.000 / 230.000 150 / 380.000 Weight last 48 hrs Weight 89.811 kg Physical Exam Narrative: awake , alert , no distress Neck no JVD PERRLA S1-S2 regular rate and rhythm Lungs clear bilaterally Abdomen soft nontender Extremities no pedal Skin no rash Data 05/06/25 04:31 05/06/25 04:31 Micro: Microbiology 05/05/25 17:25 Gram Stain - Final Sputum - Expectorated Sputum Sputum Culture - Preliminary A&P Assessment and plan 1. Kidney transplant recipient: 2. CKD (chronic kidney disease): Plan: 1. Chronic kidney disease stage IV: Patient with history of FSGS and gets plasmapheresis twice a week. Cannot perform plasmapheresis in this facility. Will discuss with patient's coil wrapper. If patient's hospitalization prolonged need to transfer to a facility where plasma exchange can be performed . Also, patient received IV contrast and renal function may get further worse. Continue to monitor. Will check transplant kidney ultrasound and urine electrolytes. 2. metabolic acidosis:, Will place on bicarbonate drip overnight, 3.Multifocal Pneumonia , on abx 4. Anemia ,hb 8.8 , monitor , ТАТЬЯНА as outpt 5.HTN , holding bP meds PDMP PDMP Reviewed: Not Reviewed Consult Attestations Medical Necessity Statement: per ro Coding Level of Care Code Acute Code for Chg Fwd Diagnoses Kidney transplant recipient Z94.0 CKD (chronic kidney disease) N18.9
[2025-05-06] MEDS: ATORVASTATIN 10 MG TABLET PO (20:34)
[2025-05-06] MEDS: HYDROmorphone tab 2 MG TABLET 4 MG PO (20:51)
[2025-05-07] VITALS (10 sets, daily range): BP systolic 85–145; BP diastolic 53–92; PULSE 78–127; RESP 17–18; TEMP 36.5–37.1; O2SAT 95–97; BMI 26.8
[2025-05-07] MEDS: ferrous sulfate EC 325 mg Tablet PO (05:09)
[2025-05-07 06:37] LABS: Hematocrit 25.5 % (37-53); Hemoglobin 8.20 g/dL (11.27-16.99); Mean Corpuscular HGB Conc 32.2 g/dL (30-55); Mean Corpuscular Hemoglobin 27.8 pg (27-33); Mean Corpuscular Volume 86.4 fl (82-101); Nucleated Red Blood Cells % 0.3 %; Platelet Count 111 10^3/cmm (157-399); Red Blood Count 2.95 10^6/uL (3.85-5.65); White Blood Count 6.67 10^3/uL (3.29-11.43)
[2025-05-07 07:00] LABS: Alanine Aminotransferase 11 U/L (0-41); Albumin Level 3.3 g/dL (3.5-5.2); Alkaline Phosphatase 30 U/L (40-130); Anion Gap 18.8 (5-19); Aspartate Amino Transferase 11 U/L (0-40); Blood Urea Nitrogen 25 mg/dL (6-20); Calcium 8.2 mg/dL (8.5-10.5); Carbon Dioxide 17 mmol/L (22-29); Chloride 103 mmol/L (98-107); Creatinine Clr Calc Pharmacy 40.3456; Globulin 0.8 g/dL (1.3-4.6); Glucose 193 mg/dL (65-115); Osmolality Calculated 290 mOsm/kg (285-295); Potassium 3.8 mmol/L (3.5-5.1); Sodium 135 mmol/L (136-145); Total Protein 4.1 g/dL (6.6-8.7)
[2025-05-07 07:29] LABS: Slide Review Slide Review Perform
[2025-05-07] MEDS: nystatin 100,000 unit/mL UDC 5 mL 200000 UNIT PO ×4 (08:02→21:26)
[2025-05-07] MEDS: piperacillin-tazobactam 3.375 GM in sodium chloride 0.9% (plus) 50 ML IV (08:03)
[2025-05-07] MEDS: NON-FORMULARY MEDICATION (Mycophenolate Sodium 180 mg tablet,delayed release (DR/EC)) 180 EACH PO ×2 (08:05→17:37)
--- NOTE | 2025-05-07 09:29 | PM.DCS ---
Discharge Providers Date of Admission: 05/04/25 13:02 Date of Discharge: May 07, 2025 Attending Provider at Admission: Rober Krueger Attending Provider at Discharge: Rober Krueger Primary Care Provider: Rik Sorto MD Diagnoses at Discharge Discharge Diagnosis 1. Kidney transplant recipient: 2. CKD (chronic kidney disease): Reason for Visit Reason for Visit: HTN, Weakness Physical Exam Narrative: Accompanied by his Const: COMMON NORMALS: patient oriented x3 and alert GENERAL APPEARANCE: cooperative ORIENTATION/CONSCIOUSNESS: Yes awake HENMT: COMMON NORMALS: oropharynx normal Neck/C-Spine: COMMON NORMALS: no JVD Resp: COMMON NORMALS: normal respiratory effort and clear to auscultation bilaterally AUSCULTATION: clear to auscultation bilaterally Cardio: COMMON NORMALS: no JVD, regular rhythm, S1 normal heart sound present, S2 normal heart sound present and No murmurs present (Cardio) RHYTHM: regular rhythm HEART SOUNDS: S1 normal heart sound present and S2 normal heart sound present GI: COMMON NORMALS: Normal to inspection, nondistended, normoactive bowel sounds present, Soft to palpation and non-tender PALPATION: Yes Soft to palpation Extremity: COMMON NORMALS: no joint enlargement and no pedal edema Neuro: COMMON NORMALS: patient oriented x3 and moves all extremities SENSORIUM/ORIENTATION: Yes alert Skin: COMMON NORMALS: no rashes or lesions noted GENERAL SKIN EXAM: no rashes or lesions noted Discharge Data Studies Completed and Pending Completed Studies During Hospitalization Category Date Time Status XR chest 1V portable [id number] Stat Exams 05/04/25 09:26 Completed Pending at discharge Category Date Time Status 1-3 Beta D Glucan [Fungitell Glucan Assay (Blood)] Lab 05/04/25 11:46 Received Routine AFB [Mycobacteria, Culture w/Fluor] Q8H Lab 05/04/25 12:21 Uncollected AFB [Mycobacteria, Culture w/Fluor] Q8H Lab 05/04/25 20:21 Uncollected AFB [Mycobacteria, Culture w/Fluor] Q8H Lab 05/05/25 17:25 Received Blood Culture Stat Lab 05/04/25 10:06 Results Herpes Simplex Virus DNA Routine Lab 05/04/25 11:46 Received Miscellaneous Test Routine Lab 05/04/25 11:46 Received OVA and Parasites, Conc and PE Routine Lab 05/04/25 13:30 Uncollected Pneumocystis PCP [Pneumocystis jiroveci Qual PCR] Lab 05/04/25 17:25 Received Routine Sputum Culture and Gram Stain Routine Lab 05/04/25 17:25 Results Tacrolimus, LS/MS/MS Routine Lab 05/07/25 06:22 Received Radiology Impressions Chest X-Ray 05/04/25 09:26 Impression: Atherosclerosis and hyperinflation. Laboratory Results WBC 6.67 10^3/uL (3.29-11.43) 05/07/25 06:22 RBC 2.95 10^6/uL (3.85-5.65) L 05/07/25 06:22 Hgb 8.20 g/dL (11.27-16.99) L 05/07/25 06:22 Hct 25.5 % (37-53) L 05/07/25 06:22 MCV 86.4 fl (82-101) 05/07/25 06:22 MCH 27.8 pg (27-33) 05/07/25 06:22 MCHC 32.2 g/dL (30-55) 05/07/25 06:22 RDW 17.1 % (12.1-15.1) H 05/07/25 06:22 Plt Count 111 10^3/cmm (157-399) L 05/07/25 06:22 MPV 9.3 fL (7.4-10.4) 05/07/25 06:22 Neut % (Auto) 77.5 % 05/07/25 06:22 Lymph % (Auto) 10.8 % 05/07/25 06:22 [place] % (Auto) 4.9 % 05/07/25 06:22 Eos % (Auto) 0.0 % 05/07/25 06:22 Baso % (Auto) 0.1 % 05/07/25 06:22 Neut # (Auto) 5.16 10^3/uL (1.8-7.7) 05/07/25 06:22 Lymph # (Auto) 0.7 10^3/uL (0.8-4.8) L 05/07/25 06:22 [place] # (Auto) 0.3 10^3/uL (0.2-0.9) 05/07/25 06:22 Eos # (Auto) 0.0 10^3/uL (0.0-0.8) 05/07/25 06:22 Baso # (Auto) 0.0 10^3/uL (0.0-0.1) 05/07/25 06:22 Nucleated RBC % (auto) 0.3 % 05/07/25 06:22 Total Counted 100 (0-100) 05/05/25 04:40 Atypical Lymphs % Not Reportable 05/05/25 04:40 Absolute Neutrophils 5.9 10^3/cmm (1.4-6.5) 05/05/25 04:40 Segmented Neutrophils 80 % 05/05/25 04:40 Band Neutrophils 7.0 % 05/05/25 04:40 Absolute Lymphocytes 1.2 10^3/cmm (1.2-3.4) 05/04/25 09:37 Lymphocytes (Manual) 8 % 05/05/25 04:40 Monocytes (Manual) 3.0 % 05/05/25 04:40 Absolute Monocytes 0.2 10^3/cmm (0.1-0.6) 05/05/25 04:40 Eosinophils (Manual) 0 % 05/05/25 04:40 Absolute Eosinophils 0.0 10^3/cmm (0.0-0.7) 05/05/25 04:40 Basophils (Manual) 0.0 % 05/05/25 04:40 Absolute Basophils 0.0 10^3/cmm (0.0-0.2) 05/05/25 04:40 Myelocytes 1.0 % 05/05/25 04:40 Nucleated RBCs 1.0 /100WBC (0-1) 05/05/25 04:40 Nucleated RBCs # 0.0 /100WBC 05/07/25 06:22 Platelet Estimate Decreased (Normal) 05/05/25 04:40 Anisocytosis Trace 05/04/25 09:37 Peripher Smr Path Cons Sent for review 05/04/25 09:37 Sodium 135 mmol/L (136-145) L 05/07/25 06:22 Potassium 3.8 mmol/L (3.5-5.1) 05/07/25 06:22 Chloride 103 mmol/L (98-107) 05/07/25 06:22 Carbon Dioxide 17 mmol/L (22-29) L 05/07/25 06:22 Anion Gap 18.8 (5-19) 05/07/25 06:22 BUN 25 mg/dL (6-20) H 05/07/25 06:22 Creatinine 2.3 mg/dL (0.7-1.2) H 05/07/25 06:22 GFR Calculation 29.2 mL/min (90-130) L 05/07/25 06:22 Glucose 193 mg/dL (65-115) H 05/07/25 06:22 Calculated Osmolality 290 mOsm/kg (285-295) 05/07/25 06:22 Lactic Acid 2.7 mmol/L (0.5-2.2) H 05/04/25 09:37 Lactic Acid (Sepsis) 1.5 mmol/L (0.5-2.2) 05/04/25 11:46 Calcium 8.2 mg/dL (8.5-10.5) L 05/07/25 06:22 Total Bilirubin 0.4 mg/dL (0.15-1.2) 05/07/25 06:22 AST 11 U/L (0-40) 05/07/25 06:22 ALT 11 U/L (0-41) 05/07/25 06:22 Alkaline Phosphatase 30 U/L (40-130) L 05/07/25 06:22 Troponin T Baseline 57 ng/L (0-15) H 05/04/25 09:37 Troponin T 120 Minute 43.69 ng/L (0-15) H 05/04/25 11:46 Delta Troponin T -13.31 ABS# (0-10) L 05/04/25 11:46 Troponin T Hi Sens 6Hr 44.71 ng/L (0-15) H 05/04/25 15:48 Troponin T Hi Sens 6Hr Delta -12.29 ng/L (0-12) L 05/04/25 15:48 Total Protein 4.1 g/dL (6.6-8.7) L 05/07/25 06:22 Albumin 3.3 g/dL (3.5-5.2) L 05/07/25 06:22 Globulin 0.8 g/dL (1.3-4.6) L 05/07/25 06:22 Random Cortisol 2.57 ug/dL (2.47-19.5) 05/04/25 09:37 Cortisol Response 05/04/25 11:46 Urine Color Yellow (Yellow) 05/04/25 10:22 Urine Appearance Cloudy (CLEAR) A 05/04/25 10:22 Urine pH 5.5 (5-7) 05/04/25 10:22 Ur Specific [place] 1.015 (1.005-1.030) 05/04/25 10:22 Urine Protein 3+ (Negative) A 05/04/25 10:22 Urine Glucose (UA) Trace (Normal) H 05/04/25 10:22 Urine Ketones Negative (Negative) 05/04/25 10:22 Urine Blood Negative (Negative) 05/04/25 10:22 Urine Nitrate Negative (Negative) 05/04/25 10:22 Urine Bilirubin Negative (Negative) 05/04/25 10:22 Urine Urobilinogen 0.2 mg/dL (Negative) 05/04/25 10:22 Ur Leukocyte Esterase Negative (Negative) 05/04/25 10:22 Urine RBC 0-2 /hpf (0-2) 05/04/25 10:22 Urine WBC 0-5 /hpf (0-5) 05/04/25 10:22 Ur Squamous Epith Cells 0-5 /hpf (0-5) 05/04/25 10:22 Amorphous Sediment Not Reportable 05/04/25 10:22 Urine Bacteria None seen /hpf (NONE) 05/04/25 10:22 Hyaline Casts 9.07 /lpf 05/04/25 10:22 Nasal MRSA (PCR) Not detected (Negative) 05/04/25 13:19 Tacrolimus (LC/MS/MS) 14.4 mcg/L 05/04/25 11:46 CMV IgG Ab >10.00 U/mL H 05/04/25 11:46 CMV IgM Ab <30.00 AU/mL 05/04/25 11:46 Influenza A (PCR) Negative (Negative) 05/04/25 09:49 Influenza Type B (PCR) Negative (Negative) 05/04/25 09:49 RSV (PCR) Negative (Negative) 05/04/25 09:49 SARS-CoV-2 (PCR) Negative (Negative) 05/04/25 09:49 Vitals Last Vital Signs Temp 98.2 F 05/07/25 07:49 Pulse 105 H 05/07/25 07:59 Resp 18 05/07/25 07:49 BP 128/75 05/07/25 07:59 Pulse Ox 95 05/07/25 07:49 O2 Del Method Room Air 05/07/25 07:49 Discharge Plan Discharge Patient Disposition: Home Condition: Stable Prescriptions: New Sore Throat (phenol) 1.4 % Aerosol,[place] 3 spray mucous membrane Q2H PRN (Reason: Sore Throat) Qty: 177 0RF nystatin 100,000 unit/mL Suspension 200,000 unit PO QID 14 Days Qty: 112 0RF levofloxacin 750 mg tablet 750 mg PO DAILY 7 Days Qty: 7 0RF metoprolol tartrate 25 mg Tablet 25 mg PO BID@0900,2100 Qty: 60 0RF acyclovir 400 mg tablet 400 mg PO TID Qty: 21 0RF fluconazole 200 mg tablet 200 mg PO DAILY 14 Days Qty: 14 0RF midodrine 5 mg tablet 5 mg PO TID Qty: 90 0RF Rx Instructions: do not give last dose of day after 6PM or within 4 hrs of bedtime prednisone 10 mg tablet See Rx Instructions .ROUTE .COMPLEX Qty: 30 0RF Rx Instructions: 4 tab daily for 3 days, then 3 tab for 3 days, then 2 tab for 3 days, then 1 tab for 3 days. prednisone 10 mg tablet See Rx Instructions .ROUTE .COMPLEX Qty: 10 0RF Rx Instructions: 2 tab every afternoon for 3 days, then 1 tab for 3 days, then 1/2 tab for 2 days Continued tamsulosin 0.4 mg capsule 0.4 mg PO QAM fluticasone propionate 50 mcg/actuation spray,suspension 2 spray INTRANASAL DAILY PRN (Reason: Allergy Symptoms) cholecalciferol (vitamin D3) 25 mcg (1,000 unit) capsule 25 mcg PO QAM hydromorphone 4 mg tablet 4 mg PO Q6H PRN (Reason: Pain) famotidine 20 mg tablet 20 mg PO BID Jardiance 25 mg tablet 25 mg PO QAM Rx Instructions: recently put on hold ferrous sulfate 325 mg (65 mg iron) tablet 325 mg PO QAM Neupogen 480 mcg/1.6 mL solution 480 mcg SUBCUT DAILY PRN (Reason: UNKNOWN) acetaminophen 325 mg capsule 650 mg PO Q4H PRN (Reason: Pain) atorvastatin 10 mg tablet 10 mg PO BEDTIME Patient Comments: On Hold pantoprazole [Protonix] 40 mg tablet,delayed release (DR/EC) 40 mg PO BID 42 Days Qty: 84 1RF ipratropium bromide 42 mcg (0.06 %) spray,non-aerosol 2 spray INTRANASAL QID finasteride 5 mg tablet 10 mg PO QAM megestrol 400 mg/10 mL (40 mg/mL) suspension 400 mg PO QAM sodium bicarbonate 650 mg tablet 1,300 mg PO BID calcium polycarbophil [FiberCon] 625 mg Tablet 625 mg PO QAM duloxetine 60 mg capsule,delayed release(DR/EC) 60 mg PO QAM Rx Instructions: Patient takes at noon and bedtime with the 30mg tab duloxetine 30 mg capsule,delayed release(DR/EC) 30 mg PO BEDTIME ondansetron 4 mg tablet,disintegrating 4 mg PO Q8H PRN (Reason: Nausea And Vomiting) Envarsus XR 1 mg tablet extended release 24 hr 1 mg PO DAILY mycophenolate sodium 180 mg tablet,delayed release (DR/EC) 180 mg PO BID oxycodone 5 mg tablet 5 mg PO Q6H PRN (Reason: Pain) diphenoxylate-atropine [Lomotil] 2.5-0.025 mg tablet 2 tab PO QID PRN (Reason: Diarrhea) artificial tears(hypromellose) 0.3 % Drops 1 drp OPHTHALMIC (EYE) DAILY PRN (Reason: Itching) Veltassa 16.8 gram Powder In Packet See Rx Instructions .ROUTE .COMPLEX PRN (Reason: Hyperkalemia) Patient Comments: prn Rx Instructions: dissolve one packet daily at noon . prn Held gabapentin 300 mg capsule 300 mg PO QAM Hold Instructions: Resume on 05/14/25. prednisone 5 mg tablet 5 mg PO QAM Hold Instructions: Resume on 05/20/25. Discontinued metoprolol succinate 100 mg tablet extended release 24 hr 100 mg PO BID Patient Comments: On hold Rx Instructions: on hold prednisone 10 mg tablet See Rx Instructions .ROUTE .COMPLEX Rx Instructions: TAKE 5 TABLETS BY MOUTH EVERY DAY FOR SEVEN DAYS, THEN FOUR EVERY DAY FOR SEVEN DAYS, THEN THREE EVERY DAY FOR SEVEN DAYS, THEN TWO EVERY DAY losartan 50 mg Tablet 25 mg PO DAILY Patient Comments: on hold Rx Instructions: RX is on hold as of 02/19/25 doxycycline hyclate 100 mg tablet 100 mg PO BID 7 Days Qty: 14 0RF Discharge Order = DC NOW: Discharge Order (Routine); Ordered 05/07/25 Ordered By: Rober Krueger Referrals: Rik Sorto MD [Primary Care Provider, [facility]] - 05/11/25 3:00 pm Discharge Diet: Soft Mechanical Discharge Activity: Increase activity as tolerated and Limit activity as instructed Patient Instructions: Metoprolol (By mouth), Levothyroxine (By mouth), Acyclovir (By mouth), Nystatin (By mouth), Fluconazole (By mouth), Midodrine (By mouth), Viral Pneumonia (DC), Oral Candidiasis (ED), Oral Herpes Infection (ED), Patient Portal & Sugar Instructions Activity Restrictions/Additional Instructions: Please follow-up with your primary provider and get in touch with transplant team following Legionella pneumonia. As discussed, please dispose of for sanitize the humidifier and consider inspection and sanitization of the central HVAC unit in the home to address sources of possible humid environment where Legionella may grow risking reinfection. Complete the course of acyclovir and Diflucan for perioral herpes infection as well as pain with swallowing. Follow-up with your primary doctor for reassessment. Please follow-up with your kidney specialist and please follow-up for arrangements for plasmapheresis to be done on Saturday if possible. Follow-up with your primary doctor regarding adrenal insufficiency. Continue with prednisone taper and once done resume usual prednisone dose. Rise slowly from laying to sitting and sitting to standing. In case he gets lightheaded sit down or lie down immediately avoiding risk of fall. Please have your primary provider follow-up remaining studies including AFB PCP and final sputum cultures. As discussed, seek medical attention in case of any worsening or new concerning symptoms. Discharge Attestations Time Spent in Discharge Care*: greater than 30 min Quality Metrics Clinical Quality Measures [ No reported AMI, CVA or VTE this stay] Coding Level of Care Code 41509 Total time (in minutes) for Discharge: 45 Diagnoses Kidney transplant recipient Z94.0 CKD (chronic kidney disease) N18.9
--- NOTE | 2025-05-07 12:43 | PC.NURSE ---
Patient concerned about blood pressure. Wants the second dose of Midodrine given and ortho's rechecked before going home. Midodrine scheduled at 1500.
[2025-05-07] MEDS: fluconazole premix 200 MG/100 ML PREMIX 100 MG IV (14:04)
[2025-05-07] MEDS: HYDROmorphone tab 2 MG TABLET 4 MG PO ×2 (14:08→21:26)
--- NOTE | 2025-05-07 16:15 | USR_ITS ---
PROCEDURE INFORMATION: Exam: US Right Limited Joint or Other Non-Vascular Extremity Structure Exam date and time: 05/07/2025 5:00 PM Age: 60 years old Clinical indication: Pain; Thigh; Right; Additional info: R thigh pain - assess for any fluid collection TECHNIQUE: Imaging protocol: US right limited joint or other nonvascular extremity structure. Real-time ultrasound with image documentation. Exam focused on the area of clinical interest. COMPARISON: PT PET WB melanoma INITIAL [id number] 07/31/2024 3:28 PM FINDINGS: Soft tissues: Grayscale and color Doppler images of soft tissues overlying patient's area of concern demonstrate no evidence of fluid collection. Incidentally noted lymph node. US/US soft tissue/extremity [id number] IMPRESSION: No evidence of fluid collection within soft tissues overlying patient's area of concern.
--- NOTE | 2025-05-07 16:17 | P.PN_ITS ---
Subjective 2 Subjective: He is improving. Overall feeling better. Ambulated with a walker. However, orthostatics still positive I will bite with improvement with initiation of midodrine. Tolerating oral intake better with improving odynophagia. He and his are concerned about returning home today. Nurse reports that he also had pain in his proximal right thigh. Vitals/I&O/Wt Last Vital Signs Temp 98.2 F 05/07/25 16:00 Pulse 95 05/07/25 16:07 Resp 18 05/07/25 16:00 BP 106/76 05/07/25 16:07 Pulse Ox 96 05/07/25 16:00 O2 Del Method Room Air 05/07/25 16:00 05/07/25 05/07/25 05/07/25 06:59 14:59 22:59 Intake Total 310 / 3421.198 2861.333 / 1663.333 360 / 2023.333 Output Total 500 / 1500 600 / 600 Balance -190 / 074.939 2201.333 / 1063.333 360 / 1423.333 Weight last 48 hrs Weight 89.811 kg Physical Exam 2 Narrative: Accompanied by his Const: COMMON NORMALS: patient oriented x3 and alert GENERAL APPEARANCE: c ooperative ORIENTATION/CONSCIOUSNESS: Yes awake HENMT: COMMON NORMALS: oropharynx normal Neck/C-Spine: COMMON NORMALS: no JVD Resp: COMMON NORMALS: normal respiratory effort and clear to auscultation bilaterally AUSCULTATION: clear to auscultation bilaterally Cardio: COMMON NORMALS: no JVD, regular rhythm, S1 normal heart sound present, S2 normal heart sound present and No murmurs present (Cardio) RHYTHM: regular rhythm HEART SOUNDS: S1 normal heart sound present and S2 normal heart sound present GI: COMMON NORMALS: Normal to inspection, nondistended, normoactive bowel sounds present, Soft to palpation and non-tender PALPATION: Yes Soft to palpation Extremity: COMMON NORMALS: no joint enlargement and no pedal edema Neuro: COMMON NORMALS: patient oriented x3 and moves all extremities S ENSORIUM/ORIENTATION: Yes alert Skin: OTHER: Improving crusted over perioral herpes lesions. Data 05/08/25 06:51 05/08/25 03:34 Micro: Microbiology 05/05/25 17:25 Gram Stain - Final Sputum - Expectorated Sputum Sputum Culture - Preliminary A&P Assessment and plan 1. Orthostatic hypotension: Maintain blood pressure at rest, tachycardia has improved/resolved. However, still orthostatic hypotension. Started midodrine 5 mg 3 times daily. Per reports he also complained of pain in his proximal right thigh. Requested ultrasound for additional assessment. Increase midodrine to 10 mg 3 times daily. Monitor for risk of supine hypertension. Bradycardia. Reassess orthostatics. Discharge deferred for now. 2. Pneumonia: Overall with good improvement. Maintaining saturation on room air. Afebrile. Without leukocytosis. Continue Levaquin. Reviewed vitals, CBC, chemistry, blood culture, sputum culture. PCR confirmation for Legionella has been sent out and health department is being contacted per discussion with infection control. Reviewed blood cultures, continue to be negative. Odynophagia continuing to show gradual improvement. Tolerating oral intake. Continue nystatin swish and swallow, Diflucan, continue acyclovir. Phenaseptic spray. Minced diet. Monitor for risk of SJS, cytopenias, C. difficile with antibiotic. For now empirically on Levaquin and Zosyn. Switch to oral corticosteroids for adrenal insufficiency. He is going to provide sputum culture when able. Reviewed blood culture, so far negative. Discussed with nursing, behavioral health case manager. Follow-up induction of sputum for PCP, AFB with RT. CBC, bandemia resolved. Reviewed peripheral smear, noted normocytic anemia and mild thrombocytopenia. No evidence of acute or chronic myeloproliferative disorder. As per discussion consider further possible sources of Legionella, discomfort and/for sinusitis humidifier, have day home HVAC inspected. Additionally if he is wearing CPAP will need to contact supplier as to whether it can be sufficiently sanitized or needs to be replaced. 3. 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 therapy: Pending repeat tacrolimus level. 4. Weakness: Generalized weakness with hypotension; concern for adrenal insufficiency on chronic corticosteroids. Combination Legionella pneumonia, adrenal insufficiency with hypotension. Hypotension addressed resolved. Switched from hydrocortisone to prednisone. Treat Legionella pneumonia. 5. Elevated lactic acid level: Resolved. 6. Esophageal thrush: Oral/throat pain with persistent thrush and suspected herpes simplex : History of prednisone-associated thrush; ongoing oral lesions, tongue/throat pain, odynophagia; clinician notes appearance concerning for herpes simplex. - Resume antifungal therapy with fluconazole (Diflucan) for persistent thrush. Switch to oral. Nystatin swish and swallow. - Pending herpes studies; treat perioral herpes simplex with acyclovir. Switched to oral. 7. Herpes labialis: Perioral lesions suspected herpes labialis. Does have history of cold sores. Family are thinking has been related to person thrush also associated with odynophagia. 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 Does have odynophagia on ST assessment. Switch to oral acyclovir. Monitor for risk of LAMAR. Reviewed HSV PCR, noted HSV 1 detected. Reassess. Maintain on isolation for now. Lesions do appear to be crusting. Plan: Chronic kidney disease status post transplant with dialysis/plasmapheresis; risk with nephrotoxic agents : Will need plasmapheresis on Saturday. Reaching out to nephrology for consultation. Reviewed chemistry. Repeat. Receives dialysis and twice-weekly plasmapheresis; immunosuppressed; antibiotic selection may impact renal function. - Monitor for risk of acute kidney injury with vancomycin. - Nephrology consultation needed closer to the end of the week. - Plasmapheresis on Saturday and Saturday to continue. Thrombocytopenia (mild) and eosinophilia : Reviewed peripheral smear. Reviewed CMV serology. Reviewed Fungitell, noted negative. Pending PCP PCR. Continue treatment of HSV. Dysphagia/odynophagia : Painful swallowing associated with oral/throat lesions; aspiration risk considered. Discussed with ST. Appreciate recommendation. - Speech therapy assessment. - Provide soft diet. 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 Switch to oral therapy. Hypertension (currently hypotensive; antihypertensives held) : Spouse has been holding home antihypertensives due to low blood pressure; patient received fluid boluses in ED with improvement. - Hold antihypertensives at this time apart from resumed lower dose metoprolol. - Monitor blood pressures. Benign prostatic hyperplasia : Chronic condition. - Continue tamsulosin (Flomax). Discussed consideration of orthostatic contribution from Flomax, but due to prior issues with discontinuation continue at this time. Hyperlipidemia : Chronic condition. - Continue statin therapy. Follow-up : Ongoing diagnostic follow-up and monitoring per ED/hospital course. - Follow up blood cultures and fungal blood cultures. - Monitor risk of Clostridioides difficile with antibiotics. PDMP PDMP Reviewed: Not Reviewed Attestations 2 Medical Necessity Statement*: Continue admission for assessment management of adrenal insufficiency, orthostatic hypotension, legionella pneumonia, multifocal HSV infection, thrush in a gentleman with CKD, FSGS, status post kidney transplant with recurrence, additional comorbidities as above. and High MDM includes amount and/or complexity of data reviewed/ordered [ resulted lab(s)/test(s), ordered lab(s)/test(s) and other healthcare professional discussion] and described risk of complication, morbidity or mortality of management as documented Diagnoses Orthostatic hypotension I95.1 Pneumonia J18.9 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 therapy D84.821 Weakness R53.1 Elevated lactic acid level R79.89 Esophageal thrush B37.81 Herpes labialis B00.1
[2025-05-07 18:30] LABS: Fungitell 1-3-B Glucan Assay <31 pg/mL (<60); Interpretation Negative (Negative)
[2025-05-07 20:10] LABS: HSV 1 DNA Detected (Not Detected); HSV 2 DNA Not Detected (Not Detected)
[2025-05-07] MEDS: ATORVASTATIN 10 MG TABLET PO (21:28)
[2025-05-08] VITALS (7 sets, daily range): BP systolic 81–117; BP diastolic 61–82; PULSE 87–107; RESP 14–16; TEMP 36.6–36.8; O2SAT 90–99
[2025-05-08 03:46] LABS: Hematocrit 23.7 % (37-53); Hemoglobin 7.60 g/dL (11.27-16.99); Mean Corpuscular HGB Conc 32.1 g/dL (30-55); Mean Corpuscular Hemoglobin 28.0 pg (27-33); Mean Corpuscular Volume 87.5 fl (82-101); Platelet Count 132 10^3/cmm (157-399); Red Blood Count 2.71 10^6/uL (3.85-5.65); White Blood Count 11.08 10^3/uL (3.29-11.43)
[2025-05-08 04:12] LABS: Alanine Aminotransferase 15 U/L (0-41); Albumin Level 3.3 g/dL (3.5-5.2); Alkaline Phosphatase 33 U/L (40-130); Anion Gap 18.0 (5-19); Aspartate Amino Transferase 14 U/L (0-40); Blood Urea Nitrogen 37 mg/dL (6-20); Calcium 8.5 mg/dL (8.5-10.5); Carbon Dioxide 21 mmol/L (22-29); Chloride 102 mmol/L (98-107); Globulin 0.9 g/dL (1.3-4.6); Glucose 187 mg/dL (65-115); Osmolality Calculated 296 mOsm/kg (285-295); Potassium 5.0 mmol/L (3.5-5.1); Sodium 136 mmol/L (136-145); Total Protein 4.2 g/dL (6.6-8.7)
[2025-05-08 04:14] LABS: Creatinine Clr Calc Pharmacy 33.1411
[2025-05-08 05:29] LABS: Slide Review Slide Review Perform
[2025-05-08] MEDS: ondansetron 2 mg/ML SDV 2 mL 4 MG IVP (05:40)
[2025-05-08] MEDS: ferrous sulfate EC 325 mg Tablet PO (05:41)
[2025-05-08 05:46] LABS: Absolute Segmented Neutrophil 8.1 10/cmm (1.6-7.1); Band Neutrophils Absolute 0.7 10^3/cmm (0.0-1.2); Total Cells Counted 100 (0-100)
[2025-05-08 05:47] LABS: Atypical Lymphs 0.0 % (0-5)
[2025-05-08 05:48] LABS: Hypochromasia 1+
--- NOTE | 2025-05-08 06:02 | ECG_ITS ---
[facility]: [facility]25[facility]08 Pat Name: Mark Mccabe Department: Room: 276 Gender: Male Stump Shooter: : 1965 Requested By: Angela Rea Order Number: [id number] Mirian MD: Vikram Dougherty M.D. Measurements Intervals [place] Rate: 86 P: 35 TN: 178 QRS: -42 QRSD: 114 T: 128 QT: 381 QTc: 456 Interpretive Statements SINUS RHYTHM LEFT AXIS DEVIATION [QRS AXIS < -30] PATTERN CONSISTENT WITH PULMONARY DISEASE LEFT VENTRICULAR HYPERTROPHY AND ST-T CHANGE [VOLTAGE CRITERIA PLUS ST/T ABNORMALITY] INTRAVENTRICULAR CONDUCTION DELAY Compared to ECG 05/05/2025 16:24:22 Sinus tachycardia no longer present Electronically Signed On 05-08-2025 20:19:03 CDT by Vikram Dougherty M.D. [email or web address]
--- NOTE | 2025-05-08 06:29 | XRR_ITS ---
PROCEDURE INFORMATION: Exam: XR Chest Exam date and time: 05/08/2025 6:31 AM Age: 60 years old Clinical indication: Shortness of breath; Chest pressure; Chest pain with SOB; Additional info: Sob/chest pain TECHNIQUE: Imaging protocol: Radiologic exam of the chest. Views: 1 view. COMPARISON: 1. CR XR chest 1V portable [id number] 05/04/2025 9:39 AM 2. CR XR chest 1V portable [id number] 04/29/2025 12:29 PM 3. CR (CHEST, ) 09/05/2024 4:18 PM FINDINGS: Lungs: Shallow inspiration with low lung volumes. Chronic atelectasis and/or fibrosis mid, lower left lung. Slight additional ill-defined patchy opacity lower medial left lung, left lower hilar/infrahilar region, possible new infiltrate and/or atelectasis. Correlate for inflammation/pneumonitis, pneumonia, or other process. Follow-up recommended. Pleural spaces: No large or obvious pneumothorax nor pleural effusion seen. Heart/Mediastinum: Stable heart size. Bones/joints: Mixed sclerosis, lucency, humeral heads suggesting osteonecrosis/avascular necrosis bilaterally, with evidence of flattening, losses sphericity right humeral head. XR/XR chest 1V portable [id number] IMPRESSION: 1. Slight additional ill-defined patchy opacity lower medial left lung, left lower hilar/infrahilar region, possible new infiltrate and/or atelectasis. Correlate for inflammation/pneumonitis, pneumonia, or other process. Follow-up recommended. 2. Mixed sclerosis, lucency, humeral heads suggesting osteonecrosis/avascular necrosis bilaterally, with evidence of flattening, losses sphericity right humeral head. 3. 1.
[2025-05-08 06:59] LABS: Hematocrit 22.7 % (37-53); Hemoglobin 7.20 g/dL (11.27-16.99)
[2025-05-08 07:17] LABS: Troponin(5th) Baseline 40 ng/L (0-15)
--- NOTE | 2025-05-08 08:30 | ECG_ITS ---
[employer] [facility] Test Date: 2025-05-08 Pat Name: Mark Mccabe Department: Room: 276 Gender: Male Consumer Services Consultant: : 1965 Requested By: Angela Rea Order Number: [id number] Vela MD: Vikram Dougherty M.D. Measurements Intervals [place] Rate: 95 P: 29 SD: 164 QRS: -46 QRSD: 114 T: 119 QT: 364 QTc: 459 Interpretive Statements SINUS RHYTHM LEFT ANTERIOR FASCICULAR BLOCK [QRS AXIS <= -45, QR IN I, RS IN II] LEFT VENTRICULAR HYPERTROPHY AND ST-T CHANGE [VOLTAGE CRITERIA PLUS ST/T ABNORMALITY] Compared to ECG 05/08/2025 06:09:38 NO SIGNIFICANT CHANGE Electronically Signed On 05-08-2025 20:33:42 CDT by Vikram Dougherty M.D. [email or web address]
[2025-05-08] MEDS: nystatin 100,000 unit/mL UDC 5 mL 200000 UNIT PO ×3 (08:39→16:55)
[2025-05-08] MEDS: NON-FORMULARY MEDICATION (Mycophenolate Sodium 180 mg tablet,delayed release (DR/EC)) 180 EACH PO (08:40)
[2025-05-08 09:29] LABS: Troponin 5 2HR 40.89 ng/L (0-15); Troponin 5 2HR Delta 0.89 ABS# (0-10)
[2025-05-08] MEDS: levofloxacin-dextrose 5 % 750 MG/150 ML PREMIX 100 MG IV (13:24)
[2025-05-08 13:28] LABS: Troponin 5 6HR 42.95 ng/L (0-15); Troponin 5 6HR Delta 2.95 ng/L (0-12)
--- NOTE | 2025-05-08 14:50 | P.PN_ITS ---
Subjective 2 Subjective: Patient admitted from current. Patient has been followed by Dr. Krueger. Today I am notified that the patient has right thigh pain. The dayshift reports that in the flag car driver hours the patient became diaphoretic. The patient is without complaints except when asked about the thigh and he says it is painful. is present on my second visit and asking about the troponins and EKGs were which are negative and she was asking about transfer. The patient has missed at least 2 plasmapheresis while being here. Vitals/I&O/Wt Last Vital Signs Temp 98.2 F 05/08/25 13:51 Pulse 97 05/08/25 13:51 Resp 14 05/08/25 13:51 BP 85/61 05/08/25 13:51 Pulse Ox 92 05/08/25 11:03 O2 Del Method Room Air 05/08/25 11:03 05/07/25 05/08/25 05/08/25 22:59 06:59 14:59 Intake Total 480 / 2143.333 240 / 2383.333 0 / 0 Balance 480 / 1543.333 240 / 1783.333 0 / 0 Weight last 48 hrs Weight 89.811 kg Weight 89.811 kg Data 05/08/25 06:51 05/08/25 03:34 Other Labs: Troponins this morning 40, 40.89, 42.9,: Negative delta Tacrolimus level on 05/04/2025; 14.4 Micro: Microbiology 05/05/25 17:25 Mycobacterial Smear - Preliminary Sputum - Expectorated Sputum 05/05/25 17:25 Gram Stain - Final Sputum - Expectorated Sputum Sputum Culture - Final EKG 1: My Interpretation: Normal sinus rhythm this morning A&P Assessment and plan 1. Pneumonia: Legionella pneumonia. On Levaquin 2. 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 therapy: Reviewed tacrolimus level. [facility]. She is concerned that this is slightly high result and recommends decrease to 0.75 m G. Discussed with our pharmacist will convert to the shorter acting form and prescribe 0.5 twice daily. Will start tomorrow Also she advised holding mycophenolate. While patient has active infection 3. Weakness: Generalized weakness with hypotension. Combination Legionella pneumonia, adrenal insufficiency from long-term glucose corticoid use 4. Elevated lactic acid level: Resolved. 5. Esophageal thrush: Patient is on Diflucan and swish and swallow 6. Herpes labialis: Received IV acyclovir 5 mg/kg every 8 hours changed to acyclovir 400 twice daily; his home dose of acyclovir is 400 3 times daily will adjust 7. Spontaneous hematoma of thigh: Pain occurred yesterday. Stop Lovenox. Instructed patient and that he should not have any further anticoagulation even for DVT prophylaxis due to to hematomas requiring blood transfusions this is a second 1. He had 1 after a kidney biopsy and had a intra-abdominal hematoma a few months ago. 8. Acute renal failure superimposed on chronic kidney disease: Major concern is that patient's creatinine has been slowly elevating and now is at a max of 2.8. His baseline from a month ago while visiting [facility] was 1.5-1.6. Plan: After thorough discussion with Dr. Parra ([phone]) patient presents with major concerns first is the worsening renal function. I do not want to hydrate due to the hypotension. He will receive 2 units of irradiated packed red blood cells. As described above will decrease his suppressive therapies. Hold mycophenolate. Decrease tacrolimus to 0.75 mg a day or the equivalent of the short acting form is 0.[address] Patel requested another level however patient will likely be transferred. As above discussed with pharmacy to adjust medications Discussed with Dr. SHAYE DAVIES as above. Discussed with Dr. Salcedo telemetry nephrology. We agreed that patient needed stress dose steroids with Solu-Cortef 100 mg IV every 6 hours. She will see the patient to determine if fluids are appropriate. She also spoke with Dr. SHAYE DAVIES and we are all in agreement for transfer to [facility]. Will arrange. PDMP PDMP Reviewed: Not Reviewed Attestations 2 Medical Necessity Statement*: Patient has required continued hospitalization for Legionella pneumonia adrenal insufficiency and acute on chronic renal failure. Coding Level of Care Code Acute Code for g Fwd Diagnoses Pneumonia J18.9 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 therapy D84.821 Weakness R53.1 Elevated lactic acid level R79.89 Esophageal thrush B37.81 Herpes labialis B00.1 Spontaneous hematoma of thigh R23.3 Acute renal failure superimposed on chronic kidney disease N17.9; N18.9
[2025-05-08 15:30] LABS: Tacrolimus, Highly Sensitive 6.8 mcg/L
[2025-05-08] MEDS: hydrocortisone 100 mg/2 mL SDV IVP (16:02)
--- NOTE | 2025-05-08 16:10 | PC.NURSE ---
pt and family request no blood thinners
--- NOTE | 2025-05-08 16:47 | PM.PN ---
Subjective Subjective: BP low Medications: Reviewed: Yes Vitals/I&O/Wt Last Vital Signs Temp 98.2 F 05/08/25 16:00 Pulse 87 05/08/25 16:00 Resp 16 05/08/25 16:00 BP 117/82 05/08/25 16:00 Pulse Ox 90 05/08/25 16:00 O2 Del Method Room Air 05/08/25 16:00 05/08/25 05/08/25 05/08/25 06:59 14:59 22:59 Intake Total 240 / 2383.333 0 / 0 150 / 150 Balance 240 / 1783.333 0 / 0 150 / 150 Weight last 48 hrs Weight 89.811 kg Weight 89.811 kg Physical Exam Narrative: awake , alert , no distress Neck no JVD PERRLA S1-S2 regular rate and rhythm Lungs clear bilaterally Abdomen soft nontender Extremities no pedal Skin no rash Data 05/08/25 06:51 05/08/25 03:34 Micro: Microbiology 05/05/25 17:25 Mycobacterial Smear - Preliminary Sputum - Expectorated Sputum 05/05/25 17:25 Gram Stain - Final Sputum - Expectorated Sputum Sputum Culture - Final A&P Assessment and plan 1. Kidney transplant recipient: 2. CKD (chronic kidney disease): Plan: 1. Acute on Chronic kidney disease stage IV: pt s/p DDRT -2 years ago Patient with reccurrent FSGS post transplant and gets plasmapheresis twice a week.on immunosupression with Tacrolimus and MMF and prdnisone. Cannot perform plasmapheresis in this facility. - Started IVFs Noted FK level 14 , Tacrolimus dose decreased t 0.5 mg bid per transplant ice scraper , holding MMF -discussed with pt transpalnt ice scraper , plan to transfer pt to [facility] for continuation of plasmapheresis and monitor - Cr up today but pt hypotenive and failed cosyntropin stim test,- plan to start stress dose steroids per hospitalist . Will check transplant kidney ultrasound and urine electrolytes. 2. Metabolic acidosis:improving , monitor 3.Multifocal Pneumonia , on abx 4. Anemia ,hb dropped to 7.2 , plan for transfusions 5.HTN , holding bP meds 6. Hypotension , persistent , failed cosyntropin stim test,- plan to start stress dose steroids per hospitalist . PDMP PDMP Reviewed: Not [facility]ed [facility]*: PER JOYTN Coding Level of Care Code Acute Code for Chg Fwd Diagnoses Kidney transplant recipient Z94.0 CKD (chronic kidney disease) N18.9
--- NOTE | 2025-05-08 16:55 | P.MISC_ITS ---
Miscellaneous Note Purpose of Documentation: Patient has been accepted in transfer to [facility] in [place]. Dr. Babb is the accepting fraud examiner on the transplant team.
--- NOTE | 2025-05-08 18:29 | PM.DCS ---
Discharge Providers Date of Admission: 05/04/25 13:02 Date of Discharge: May 08, 2025 Attending Provider at Admission: Rober Krueger Attending Provider at Discharge: Nnamdi De Leon DO Consults: Nephrology Primary Care Provider: Rik Sorto MD Diagnoses at Discharge Discharge Diagnosis 1. Kidney transplant recipient: 2. CKD (chronic kidney disease): Reason for Visit Reason for Visit: HTN, Weakness Brief History: Patient presents for second time within a few days for weakness dizziness and documented low blood pressure in the 70s and 80s systolic with also mild dyspnea. Admission was discussed but he declines on 04 29 he was discharged on doxycycline. He returned on 05/04/2025 with the same symptoms. And the same soft blood pressure. Of note patient has while lost approximately 10 to 15 pounds recently the had been holding his home antihypertensives due to the low blood pressure patient had recently been on prednisone and was on 60 mg several weeks prior to admission and just tapered to 10 and then 5 mg recently. Hospital Course Hospital Course Patient was admitted to the hospital for pneumonia CAT scan showed evidence of infiltrate. Workup found Legionella antigen positive. He was placed on Levaquin. Patient was found to have adrenal insufficiency and he was given stress dose steroids with hydrocortisone. At that time blood pressures were stable. A consultation with career education teacher occurred on 05/06/2025. At that time it was determined that we cannot perform plasmapheresis in this facility. Due to the metabolic acidosis the patient was placed on a bicarb drip overnight. Plans were made for discharge the following day on the . However his was unable to maintain his blood pressure he was noted to have some pain in his right thigh and ultrasound was obtained that showed no evidence of fluid collection. His discharge was held after Dr. Krueger spoke with the nephrology transplant physician Dr. Parra ([phone]). Patient remain orthostatic and his midodrine was increased from 5 to 10 mg 3 times daily. He was maintained on his usual dose of Flomax although this may be contributing. Today on 05/08/2025. Evaluation of his thigh showed significant hematoma of the left inner thigh. His hemoglobin was 7.2 and had dropped 1 g in 1 day and overall at least 2 g. He was scheduled to be transfused 2 units. Lovenox was stopped. (Please note this is the second hematoma from anticoagulation in the matter of months. It is recommended that no DVT prophylaxis pharmacologically is given) Also I resumed stress dose steroids. His blood pressure had improved. After speaking with the patient's again with the career education teacher on the transplant team as well as our career education teacher it was determined the best course of action was to transfer the patient to [facility]. Unfortunately his renal function with a creatinine at 2.8 is elevated to what was his baseline this summer of 1.5-1.6. Also his tacrolimus dose was relatively high at 14.4. Today I decreased his dose to 0.75 mg or the equivalent of 0.5 mg of the short acting twice daily D. We held his micro ventilate which had not been adjusted for acute infection. I spoke with , the on-call career education teacher with the transplant team and Dr. Monroy the transfer iron operator via phone and answered all questions. They accepted him to and intermediate care bed. And transportation is being arranged. Physical Exam Narrative: Patient is alert and oriented. To person place time and situation. Heart is regular normal S1-S2 without murmurs clicks gallops or rubs Lungs are diminished with scattered rhonchi Abdomen soft nontender nondistended positive bowel sounds Lower extremities: Large almost the entire inner thigh hematoma. Discharge Data Studies Completed and Pending Completed Studies During Hospitalization Category Date Time Status XR chest 1V portable [id number] Stat Exams 05/04/25 09:26 Completed XR chest 1V portable [id number] Stat Exams 05/08/25 06:29 Completed US soft tissue/extremity [id number] Routine Ultrasound 05/07/25 16:15 Completed Pending at discharge Category Date Time Status AFB [Mycobacteria, Culture w/Fluor] Q8H Lab 05/04/25 12:21 Uncollected AFB [Mycobacteria, Culture w/Fluor] Q8H Lab 05/04/25 20:21 Uncollected AFB [Mycobacteria, Culture w/Fluor] Q8H Lab 05/05/25 17:25 Results Blood Culture Stat Lab 05/04/25 10:06 Results Leukocyte Reduced RBC Routine Lab 05/08/25 06:51 Results Miscellaneous Test Routine Lab 05/04/25 11:46 Received Miscellaneous Test Routine Lab 05/07/25 12:26 Ordered OVA and Parasites, Conc and PE Routine Lab 05/04/25 13:30 Uncollected Pneumocystis PCP [Pneumocystis jiroveci Qual PCR] Lab 05/04/25 17:25 Received Routine Type and Screen Routine Lab 05/08/25 06:51 Results CV renal transplant [id number] Routine Ultrasound 05/08/25 16:52 Ordered Radiology Impressions Soft Tissue Ultrasound 05/07/25 16:15 IMPRESSION: No evidence of fluid collection within soft tissues overlying patient's area of concern. Chest X-Ray 05/08/25 06:29 IMPRESSION: 1. Slight additional ill-defined patchy opacity lower medial left lung, left lower hilar/infrahilar region, possible new infiltrate and/or atelectasis. Correlate for inflammation/pneumonitis, pneumonia, or other process. Follow-up recommended. 2. Mixed sclerosis, lucency, humeral heads suggesting osteonecrosis/avascular necrosis bilaterally, with evidence of flattening, losses sphericity right humeral head. 3. 1. Laboratory Results WBC 11.08 10^3/uL (3.29-11.43) 05/08/25 03:34 RBC 2.71 10^6/uL (3.85-5.65) L 05/08/25 03:34 Hgb 7.20 g/dL (11.27-16.99) L 05/08/25 06:51 Hct 22.7 % (37-53) L 05/08/25 06:51 MCV 87.5 fl (82-101) 05/08/25 03:34 MCH 28.0 pg (27-33) 05/08/25 03:34 MCHC 32.1 g/dL (30-55) 05/08/25 03:34 RDW 17.2 % (12.1-15.1) H 05/08/25 03:34 Plt Count 132 10^3/cmm (157-399) L 05/08/25 03:34 MPV 10.4 fL (7.4-10.4) 05/08/25 03:34 Neut % (Auto) 77.5 % 05/07/25 06:22 Lymph % (Auto) Not Reportable 05/08/25 03:34 [place] % (Auto) Not Reportable 05/08/25 03:34 Eos % (Auto) 0.0 % 05/07/25 06:22 Baso % (Auto) 0.1 % 05/07/25 06:22 Neut # (Auto) 5.16 10^3/uL (1.8-7.7) 05/07/25 06:22 Lymph # (Auto) Not Reportable 05/08/25 03:34 [place] # (Auto) Not Reportable 05/08/25 03:34 Eos # (Auto) 0.0 10^3/uL (0.0-0.8) 05/07/25 06:22 Baso # (Auto) 0.0 10^3/uL (0.0-0.1) 05/07/25 06:22 Nucleated RBC % (auto) 0.3 % 05/07/25 06:22 Total Counted 100 (0-100) 05/08/25 03:34 Atypical Lymphs % 0.0 % (0-5) 05/08/25 03:34 Absolute Neutrophils 8.8 10^3/cmm (1.4-6.5) H 05/08/25 03:34 Segmented Neutrophils 73 % 05/08/25 03:34 Band Neutrophils 6.0 % 05/08/25 03:34 Absolute Lymphocytes 1.7 10^3/cmm (1.2-3.4) 05/08/25 03:34 Lymphocytes (Manual) 15 % 05/08/25 03:34 Monocytes (Manual) 1.0 % 05/08/25 03:34 Absolute Monocytes 0.1 10^3/cmm (0.1-0.6) 05/08/25 03:34 Eosinophils (Manual) 0 % 05/08/25 03:34 Absolute Eosinophils 0.0 10^3/cmm (0.0-0.7) 05/08/25 03:34 Basophils (Manual) 0.0 % 05/08/25 03:34 Absolute Basophils 0.0 10^3/cmm (0.0-0.2) 05/08/25 03:34 Metamyelocytes 2.0 % 05/08/25 03:34 Myelocytes 2.0 % 05/08/25 03:34 Nucleated RBCs 1.0 /100WBC (0-1) 05/08/25 03:34 Nucleated RBCs # 0.0 /100WBC 05/07/25 06:22 Platelet Estimate Normal (Normal) 05/08/25 03:34 Hypochromasia 1+ H 05/08/25 03:34 Anisocytosis Trace 05/04/25 09:37 Peripher Smr Path Cons Sent for review 05/04/25 09:37 Sodium 136 mmol/L (136-145) 05/08/25 03:34 Potassium 5.0 mmol/L (3.5-5.1) 05/08/25 03:34 Chloride 102 mmol/L (98-107) 05/08/25 03:34 Carbon Dioxide 21 mmol/L (22-29) L 05/08/25 03:34 Anion Gap 18.0 (5-19) 05/08/25 03:34 BUN 37 mg/dL (6-20) H 05/08/25 03:34 Creatinine 2.8 mg/dL (0.7-1.2) H 05/08/25 03:34 GFR Calculation 23.3 mL/min (90-130) L 05/08/25 03:34 Glucose 187 mg/dL (65-115) H 05/08/25 03:34 POC Glucose 262 mg/dL (70-110) H 05/08/25 06:08 Calculated Osmolality 296 mOsm/kg (285-295) H 05/08/25 03:34 Lactic Acid 2.7 mmol/L (0.5-2.2) H 05/04/25 09:37 Lactic Acid (Sepsis) 1.5 mmol/L (0.5-2.2) 05/04/25 11:46 Calcium 8.5 mg/dL (8.5-10.5) 05/08/25 03:34 Total Bilirubin 0.4 mg/dL (0.15-1.2) 05/08/25 03:34 AST 14 U/L (0-40) 05/08/25 03:34 ALT 15 U/L (0-41) 05/08/25 03:34 Alkaline Phosphatase 33 U/L (40-130) L 05/08/25 03:34 Troponin T Baseline 40 ng/L (0-15) H 05/08/25 06:51 Troponin T 120 Minute 40.89 ng/L (0-15) H 05/08/25 09:00 Delta Troponin T 0.89 ABS# (0-10) 05/08/25 09:00 Troponin T Hi Sens 6Hr 42.95 ng/L (0-15) H 05/08/25 12:53 Troponin T Hi Sens 6Hr Delta 2.95 ng/L (0-12) 05/08/25 12:53 Total Protein 4.2 g/dL (6.6-8.7) L 05/08/25 03:34 Albumin 3.3 g/dL (3.5-5.2) L 05/08/25 03:34 Globulin 0.9 g/dL (1.3-4.6) L 05/08/25 03:34 Random Cortisol 2.57 ug/dL (2.47-19.5) 05/04/25 09:37 Cortisol Response 05/04/25 11:46 Urine Color Yellow (Yellow) 05/04/25 10:22 Urine Appearance Cloudy (CLEAR) A 05/04/25 10:22 Urine pH 5.5 (5-7) 05/04/25 10:22 Ur Specific [place] 1.015 (1.005-1.030) 05/04/25 10:22 Urine Protein 3+ (Negative) A 05/04/25 10:22 Urine Glucose (UA) Trace (Normal) H 05/04/25 10:22 Urine Ketones Negative (Negative) 05/04/25 10:22 Urine Blood Negative (Negative) 05/04/25 10:22 Urine Nitrate Negative (Negative) 05/04/25 10:22 Urine Bilirubin Negative (Negative) 05/04/25 10:22 Urine Urobilinogen 0.2 mg/dL (Negative) 05/04/25 10:22 Ur Leukocyte Esterase Negative (Negative) 05/04/25 10:22 Urine RBC 0-2 /hpf (0-2) 05/04/25 10:22 Urine WBC 0-5 /hpf (0-5) 05/04/25 10:22 Ur Squamous Epith Cells 0-5 /hpf (0-5) 05/04/25 10:22 Amorphous Sediment Not Reportable 05/04/25 10:22 Urine Bacteria None seen /hpf (NONE) 05/04/25 10:22 Hyaline Casts 9.07 /lpf 05/04/25 10:22 Nasal MRSA (PCR) Not detected (Negative) 05/04/25 13:19 Tacrolimus (LC/MS/MS) 6.8 mcg/L 05/07/25 06:22 CMV IgG Ab >10.00 U/mL H 05/04/25 11:46 CMV IgM Ab <30.00 AU/mL 05/04/25 11:46 Herpes Simplex Source Lip lesions 05/04/25 11:46 Influenza A (PCR) Negative (Negative) 05/04/25 09:49 Influenza Type B (PCR) Negative (Negative) 05/04/25 09:49 RSV (PCR) Negative (Negative) 05/04/25 09:49 SARS-CoV-2 (PCR) Negative (Negative) 05/04/25 09:49 Beta-(1,3)-D-Glucan <31 pg/mL (<60) 05/04/25 11:46 B-(1,3)-D-Glucan Intrp Negative (Negative) 05/04/25 11:46 HSV 1 DNA Detected (Not Detected) A 05/04/25 11:46 HSV 2 DNA Not detected (Not Detected) 05/04/25 11:46 Blood Type O Positive 05/08/25 06:51 Rho(D) Type Rh positive 05/08/25 06:51 Antibody Screen Negative 05/08/25 06:51 Crossmatch See Detail 05/08/25 06:51 Vitals Last Vital Signs Temp 98.2 F 05/08/25 16:00 Pulse 87 05/08/25 16:00 Resp 16 05/08/25 16:00 BP 117/82 05/08/25 16:00 Pulse Ox 90 05/08/25 16:00 O2 Del Method Room Air 05/08/25 16:00 Discharge Plan Discharge Patient Disposition: Home Condition: Stable Prescriptions: New Sore Throat (phenol) 1.4 % Aerosol,[place] 3 spray mucous membrane Q2H PRN (Reason: Sore Throat) Qty: 177 0RF nystatin 100,000 unit/mL Suspension 200,000 unit PO QID 14 Days Qty: 112 0RF levofloxacin 750 mg tablet 750 mg PO DAILY 7 Days Qty: 7 0RF metoprolol tartrate 25 mg Tablet 25 mg PO BID@0900,2100 Qty: 60 0RF acyclovir 400 mg tablet 400 mg PO TID Qty: 21 0RF fluconazole 200 mg tablet 200 mg PO DAILY 14 Days Qty: 14 0RF midodrine 5 mg tablet 5 mg PO TID Qty: 90 0RF Rx Instructions: do not give last dose of day after 6PM or within 4 hrs of bedtime prednisone 10 mg tablet See Rx Instructions .ROUTE .COMPLEX Qty: 30 0RF Rx Instructions: 4 tab daily for 3 days, then 3 tab for 3 days, then 2 tab for 3 days, then 1 tab for 3 days. prednisone 10 mg tablet See Rx Instructions .ROUTE .COMPLEX Qty: 10 0RF Rx Instructions: 2 tab every afternoon for 3 days, then 1 tab for 3 days, then 1/2 tab for 2 days Continued tamsulosin 0.4 mg capsule 0.4 mg PO QAM fluticasone propionate 50 mcg/actuation spray,suspension 2 spray INTRANASAL DAILY PRN (Reason: Allergy Symptoms) cholecalciferol (vitamin D3) 25 mcg (1,000 unit) capsule 25 mcg PO QAM hydromorphone 4 mg tablet 4 mg PO Q6H PRN (Reason: Pain) famotidine 20 mg tablet 20 mg PO BID Jardiance 25 mg tablet 25 mg PO QAM Rx Instructions: recently put on hold ferrous sulfate 325 mg (65 mg iron) tablet 325 mg PO QAM Neupogen 480 mcg/1.6 mL solution 480 mcg SUBCUT DAILY PRN (Reason: UNKNOWN) acetaminophen 325 mg capsule 650 mg PO Q4H PRN (Reason: Pain) atorvastatin 10 mg tablet 10 mg PO BEDTIME Patient Comments: On Hold pantoprazole [Protonix] 40 mg tablet,delayed release (DR/EC) 40 mg PO BID 42 Days Qty: 84 1RF ipratropium bromide 42 mcg (0.06 %) spray,non-aerosol 2 spray INTRANASAL QID finasteride 5 mg tablet 10 mg PO QAM megestrol 400 mg/10 mL (40 mg/mL) suspension 400 mg PO QAM sodium bicarbonate 650 mg tablet 1,300 mg PO BID calcium polycarbophil [FiberCon] 625 mg Tablet 625 mg PO QAM duloxetine 60 mg capsule,delayed release(DR/EC) 60 mg PO QAM Rx Instructions: Patient takes at noon and bedtime with the 30mg tab duloxetine 30 mg capsule,delayed release(DR/EC) 30 mg PO BEDTIME ondansetron 4 mg tablet,disintegrating 4 mg PO Q8H PRN (Reason: Nausea And Vomiting) Envarsus XR 1 mg tablet extended release 24 hr 1 mg PO DAILY mycophenolate sodium 180 mg tablet,delayed release (DR/EC) 180 mg PO BID oxycodone 5 mg tablet 5 mg PO Q6H PRN (Reason: Pain) diphenoxylate-atropine [Lomotil] 2.5-0.025 mg tablet 2 tab PO QID PRN (Reason: Diarrhea) artificial tears(hypromellose) 0.3 % Drops 1 drp OPHTHALMIC (EYE) DAILY PRN (Reason: Itching) Veltassa 16.8 gram Powder In Packet See Rx Instructions .ROUTE .COMPLEX PRN (Reason: Hyperkalemia) Patient Comments: prn Rx Instructions: dissolve one packet daily at noon . prn Held gabapentin 300 mg capsule 300 mg PO QAM Hold Instructions: Resume on 05/14/25. prednisone 5 mg tablet 5 mg PO QAM Hold Instructions: Resume on 05/20/25. Discontinued metoprolol succinate 100 mg tablet extended release 24 hr 100 mg PO BID Patient Comments: On hold Rx Instructions: on hold prednisone 10 mg tablet See Rx Instructions .ROUTE .COMPLEX Rx Instructions: TAKE 5 TABLETS BY MOUTH EVERY DAY FOR SEVEN DAYS, THEN FOUR EVERY DAY FOR SEVEN DAYS, THEN THREE EVERY DAY FOR SEVEN DAYS, THEN TWO EVERY DAY losartan 50 mg Tablet 25 mg PO DAILY Patient Comments: on hold Rx Instructions: RX is on hold as of 02/19/25 doxycycline hyclate 100 mg tablet 100 mg PO BID 7 Days Qty: 14 0RF Referrals: Rik Sorto MD [Primary Care Provider, [facility]] - 05/11/25 3:00 pm Discharge Diet: Soft Mechanical Discharge Activity: Increase activity as tolerated and Limit activity as instructed Patient Instructions: Metoprolol (By mouth), Levothyroxine (By mouth), Acyclovir (By mouth), Nystatin (By mouth), Fluconazole (By mouth), Midodrine (By mouth), Oral Candidiasis (ED), Oral Herpes Infection (ED), Patient Portal & Sugar Instructions Activity Restrictions/Additional Instructions: Please follow-up with your primary provider and get in touch with transplant team following Legionella pneumonia. As discussed, please dispose of for sanitize the humidifier and consider inspection and sanitization of the central HVAC unit in the home to address sources of possible humid environment where Legionella may grow risking reinfection. If you are using CPAP at home, please contact the supplier and discuss with them whether the machine can be sanitized in case of legionella infection or needs to be replaced. Complete the course of acyclovir and Diflucan for perioral herpes infection as well as pain with swallowing. Follow-up with your primary doctor for reassessment. Please follow-up with your kidney specialist and please follow-up for arrangements for plasmapheresis to be done on Saturday if possible. Follow-up with your primary doctor regarding adrenal insufficiency. Continue with prednisone taper and once done resume usual prednisone dose. Rise slowly from laying to sitting and sitting to standing. In case he gets lightheaded sit down or lie down immediately avoiding risk of fall. Please have your primary provider follow-up remaining studies including AFB PCP and final sputum cultures. As discussed, seek medical attention in case of any worsening or new concerning symptoms. Discharge Attestations Time Spent in Discharge Care*: greater than 30 min Quality Metrics Clinical Quality Measures [ No reported AMI, CVA or VTE this stay] Coding Level of Care Code Acute Code for Chg Fwd Diagnoses Kidney transplant recipient Z94.0 CKD (chronic kidney disease) N18.9
[2025-05-10 16:00] LABS: P. Jirovecii DNA QL PCR Not Detected (Not Detected); P. Jirovecii DNA QL PCR Source INDUCED SPUTUM
== END 2025-05-08 19:00 | disposition short-term general hospital (02) | DRG 194 ==
LOC: ER 12:18 → MEDSURG 13:02
PROVIDERS: Hospitalist; Internal Medicine; Admitting Provider Internal Medicine; Emergency Provider Family Medicine; PCP Family Medicine; Visit Provider Internal Medicine
DX: J18.9 Pneumonia, unspecified organism (principal); B37.81 Candidal esophagitis; D84.821 Immunodeficiency due to drugs; Z94.0 Kidney transplant status; N18.4 Chronic kidney disease, stage 4 (severe); E87.20 Acidosis, unspecified; N17.9 Acute kidney failure, unspecified; M79.81 Nontraumatic hematoma of soft tissue; M10.9 Gout, unspecified; N40.0 Benign prostatic hyperplasia without lower urinary tract symptoms; G47.33 Obstructive sleep apnea (adult) (pediatric); M79.7 Fibromyalgia; I27.20 Pulmonary hypertension, unspecified; E78.5 Hyperlipidemia, unspecified; D63.1 Anemia in chronic kidney disease; D69.6 Thrombocytopenia, unspecified; B00.1 Herpesviral vesicular dermatitis; N05.1 Unspecified nephritic syndrome with focal and segmental glomerular lesions; R00.0 Tachycardia, unspecified; I95.1 Orthostatic hypotension; I10 Essential (primary) hypertension; G60.9 Hereditary and idiopathic neuropathy, unspecified; Z79.52 Long term (current) use of systemic steroids; Z79.899 Other long term (current) drug therapy; Z87.11 Personal history of peptic ulcer disease; Z87.891 Personal history of nicotine dependence
CPT/HCPCS: 36415; 36416; 36430; 71045; 76882; 80053; 80197; 80503; 81001; 82533; 82962; 83605; 84484; 85007; 85014; 85018; 85025; 86403; 86850; 86900; 86920; 87015; 87040; 87070; 87116; 87205; 87206; 87449; 87530; 87637; 87798; 87801; 92523; 92526; 92610; 93005; 96372; 96374; 96375; 99285; J0133; J0713; J0834; J1450; J1650; J1720; J1956; J2405; J2543; J3373; J7030; J7050; J7070; J7512; J8499; J9999; P9016

== ENCOUNTER 2025-06-22 19:22 | Emergency (ER) | payer OTHER, MEDICARE, SELFPAY ==
--- OUTSIDE RECORDS SUMMARY | 2025-04-15 03:40 | XMS_ITS ---
Author Organization [facility] Address [address] [place] [address] Care Team Providers Care [place] Performer Name Role Phone Lilian Sanchez Primary Care Provider Unavail able Iron Colvin Unavailable [phone] Landy Goodson Unavailable [phone] REASON FOR VISIT 5 week f/u pt sick Social History Tobacco Use: Social History Observation [...] Problem Status W/U Status Risk Notes Problem Lumbosacral spondylosis without myelopathy (89241299) Other spondylosis with radiculopathy, lumbar region (M47.26) Active confirmed Encounters Encounter Location Date Provider Diagnosis [facility] [address] [place] [address] 04/15/2025 Landy Goodson Chronic pain syndrom e G89.4 ; Cervical spondylosis M47.812 ; Multilevel thoracic spondylosis without myelopathy M47.814 ; Other spondylosis with radiculopathy, lumbar region M47.26 ; Abnormality of gait and mobility R26.9 ; ferry terminal agent (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) use of opiate analgesic Z79.891 ; History of renal transplant Z94.0 ; Lumbar spondylosis M47.816 ; Depression screen Z13.31 and Lumbar radiculopathy M54.16 Assessments Encounter Date Diagnosis (ICD Code) Assessment Notes Treatment Notes Treatment Clinical Notes Section Notes 04/15/2025 Chronic pain syndrome (ICD-10 - G89.4) 04/15/2025 Cervical spondylosis (ICD-10 - M47.812) 04/15/2025 Multilevel thoracic spondylosis without myelopathy (ICD-10 - M47.814) 04/15/2025 Other spondylosis with radiculopathy, lumbar region (ICD-10 - M47.26) 04/15/2025 Abnormality of gait and mobility (ICD-10 - R26.9) 04/15/2025 correction (current) use of opiate analgesic (ICD-10 - Z79.891) 04/15/2025 History of renal transplant (ICD-10 - Z94.0) 04/15/2025 Lumbar spondylosis (ICD-10 - M47.816) 04/15/2025 Depression screen (ICD-10 - Z13.31) 04/15/2025 Lumbar radiculopathy (ICD-10 - M54.16) Plan Of Treatment No Information History and Physical Notes * HPI (History of Present Illness) Category Sub-Category Detail Notes Category Not es Pain Details Pain Location ___ Quality ___ Severity of pain at its worst ___ Severity of pain at its best ___ Severity of average pain ___ Severity of pain right now ___ Severity of pain on medication ___ When did you last take your pain medicin e ___ Medication Details Do you have a lock [...] today? No Opioid Assessment Tools Pill Count ___ Last Urine Drug Screen 03/10/2025 confir gale Today's Rapid Urine Drug Screen cup [place] Prescription Monitoring Program ___ , [place] PDMP, found to be consistent with treatment history, reviewed today Treatment History Test undergone in the past ___ , 10/2024 Lumbar MRI04/14/2020 Thoracic MRI Past medication you have taken Hydromorp bladimir 4 mg #120 Treatments you have had ___ , None Ipma Progress Notes * Mark BANDA DDOB:04/1965 (60 yo M)Acc No.[id number]:04/15/2025 Progress Notes Patient: Joseph Monsivaisshankar Ingram Provider: ALICIA Toussaint :1965 A ge:59 Y S ex:Male Date:04/15/2025 Address:[address] [place], [place] [id number] Pcp:EMMA Spencer Subjective: * Chief Complaints: * 5 week f/u pt sick * HPI: P ain Details: Pain Location _ __. Quality _ __. Severity of pain at its worst _ __. Severity of pain at its best _ __. Severity of pain on medication _ __. Severity of average pain _ __. Severity of pain right now _ __. When did you last take your pain medicine _ __. M edication Details: Do you have a [...] today? N o. O pioid Assessment Tools: Pill Count _ __. Last Urine Drug Screen 0 03/10/2025 confirmation. Today's Rapid Urine Drug Screen c up. [place] Prescription Monitoring Program _ __ , [place] PDMP, found to be consistent with treatment history, reviewed today. T reatment History: Test undergone in the past _ __ , 10/2024 Lumbar MRI Thoracic MRI. Past medication you have taken H ydromorphone 4 mg #120.? Treatments you have had _ __ , None Ipma. * ROS: G eneral - Multi System: Constitutional D enies, f ever, recent weight gain, recent weight loss, fatigue. R espiratory D enies, wheezing, shortness of breath, cough, snoring. G astrointestinal D enies, nausea, vomiting, constipation, abdominal pain. P sychiatric D enies, , anxiety, depression, panic attacks, suicidal thoughts. * Medical History: Problem:Benign hypertension (disorder) , Status :: Active Problem:Drug therapy finding (finding) , Status :: Active Problem:Fibromyalgia (disorder) , Status :: Active Problem:Focal segmental glomerulosclerosis (disorder) , Status :: Active Problem:Hypoalbuminemia (finding) , Status :: Active Problem:Iron deficiency anemia (disorder) , Status :: Active Problem:Microscopic hematuria (disorder) , Status :: Active Problem:Nephrotic range proteinuria (finding) , Status :: Active Problem:Obesity (disorder) , Status :: Active Problem:Osteoarthritis (disorder) , Status :: Active Problem:Patient immunocompromized (finding) , Status :: Active Problem:Tobacco user (finding) , Status :: Active Depression Hypertension Arthritis Hernia Back trouble Fibromyalgia IBS High Blood Pressure Heart Disease Stomach Ulcer Headache, migraine Depression Arthritis Constipation Blood thinners Lost kidney * Surgical History: kidney transplant * Hospitalization/Major Diagno stic Procedure: unknown * Family History: family history of fibromyaglia, [...] t aking medications for mental health reasons. Objective: * P ast Orders: L ab:Urine Confirmation Panel (instrument) - [id number] (Order Date - 03/10/2025) (Collection Date & Time - 03/10/2025) Value Reference Range 6-Acetylmorphine 0 <6 - ng/mL 7-Aminoclonazepam 0 <60 - ng/mL Alprazolam 0 <60 - ng/mL Amphetamine 0 <75 - ng/mL aOH-Alprazolam 0 <60 - ng/mL Buprenorphine 1.0 <7.5 - ng/mL Norbuprenorphine 0.0 <37.5 - ng/mL Carisoprodol 0 <75 - ng/mL Codeine 0 <75 - ng/mL EDDP 0 <75 - ng/mL Fentanyl 0 <6 - ng/mL Hydrocodone 0 <75 - ng/mL Hydromorphone >5000 > <75 - ng/mL Lorazepam 0 <60 - ng/mL MDMA 0 <75 - ng/mL Meperidine 0.0 <37.5 - ng/mL Meprobamate 0 <75 - ng/mL Methamphetamine 0 <75 - ng/mL Methadone 0 <75 - ng/mL Morphine 0 <75 - ng/mL Nordiazepam 0 <60 - ng/mL Norfentanyl 0 <6 - ng/mL Normeperidine 0.0 <37.5 - ng/mL O-desmethyltramadol 0 <75 - ng/mL Oxazepam 0 <60 - ng/mL Oxycodone 0.0 <37.5 - ng/mL Oxymorphone 0 <75 - ng/mL Phencyclidine 0.0 <7.5 - ng/mL Tapentadol 0.0 <37.5 - ng/mL Temazepam 0 <60 - ng/mL Tramadol 1 <75 - ng/mL Norhydrocodone 0 <75 - ng/mL Noroxycodone 0 <38 - ng/mL Pregabalin 0 <225 - ng/mL Gabapentin >28814 > <225 - ng/mL Benzoylecgonine 0.0 <37.5 - ng/mL 4-Hydroxy Xylazine 0 <25 - ng/mL Assessment: * Assessment: 1. C hronic pain syndrome - G89.4 (Primary) 2 . C ervical spondylosis - M47.812 3 . M ultilevel thoracic spondylosis without myelopathy - M47.814 ? 4 . O ther spondylosis with radiculopathy, lumbar region - M47.26 5 . Abnormality of gait and mobility - R26.9 6 . L partha term (current) use of opiate analgesic - Z79.891 7 . H istory of renal transplant - Z94.0 8 . L umbar spondylosis - M47.816 9 . D epression screen - Z13.31 10. L umbar radiculopathy - M54.16 Billing Information: * Procedure Codes: Care Plan Details* * Electronic signature of Linda Goodson APRN on 06/22/2025 at 04:05 PM CDT Sign off status: Pending * Provider: ALICIA Toussaint Date: 0 04/15/2025 Generated for Rick morelos/Sheldon/Ashley on: 1 04:05 PM CDT
--- OUTSIDE RECORDS SUMMARY | 2025-06-03 10:00 | XMS_ITS ---
Author Organization [facility] Address [address] [place] [address] Care Team Providers Care Lawn Service Supervisor Name Role Phone Lilian Sanchez Primary Care Provider Unavail able Iron Colvin Unavailable [phone] Landy Goodson Unavailable [phone] REASON FOR VISIT 6 weeks Social History Tobacco Use: Social History Observation [...] taking medications for menta l health reasons Encounters Encounter Location Date Provider Diagnosis [facility] [address] [place] [address] 06/03/2025 Landy Kellee Chronic pain syndrom e G89.4 ; Cervical spondylosis M47.812 ; Multilevel thoracic spondylosis without myelopathy M47.814 ; Other spondylosis with radiculopathy, lumbar region M47.26 ; Abnormality of gait and mobility R26.9 ; group home (current) use of opiate analgesic Z79.891 ; History of renal transplant Z94.0 ; Lumbar spondylosis M47.816 ; Depression screen Z13.31 and Lumbar radiculopathy M54.16 Assessments Encounter Date Diagnosis (ICD Code) Assessment Notes Treatment Notes Treatment Clinical Notes Section Notes 06/03/2025 Chronic pain syndrome (ICD-10 - G89.4) 06/03/2025 Cervical spondylosis (ICD-10 - M47.812) 06/03/2025 Multilevel thoracic spondylosis without myelopathy (ICD-10 - M47.814) 06/03/2025 Other spondylosis with radiculopathy, lumbar region (ICD-10 - M47.26) 06/03/2025 Abnormality of gait and mobility (ICD-10 - R26.9) 06/03/2025 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 No Opioid Assessment Tools Pill Count __ Last Urine Drug Screen 03/10/2025 Confir mation Today's Rapid Urine Drug Screen 06/03/20 25 cup [place] Prescription Monitoring Program [place] PDMP, found to be consistent with treatment history, reviewed today Treatment History Test undergone in the past 2024 Lumbar MRI04/14/2020 Thoracic MRI Past medication you have taken [employer] bladimir 4 mg #112 Filled 03/26/2025 Treatments you have had None Ipma Progress Notes * Mark BANDA DDOB:04/1965 (60 yo M)Acc No.[id number]:06/03/2025 Progress Notes Patient: Mark Monsivais Provider: ALICIA Toussaint :1965 A ge:60 Y S ex:Male Date:06/03/2025 Address:[address] [place], [place] [id number] Pcp:EMMA Spencer Subjective: * Chief Complaints: * 6 weeks * HPI: P ain Details: Pain Location [...] O pioid Assessment Tools: Pill Count _ _. Last Urine Drug Screen 0 03/10/2025 Confirmation. Today's Rapid Urine Drug Screen 1 cup. [place] Prescription Monitoring Program [place] PDMP, found to be consistent with treatment [...] with pain in his low back. * Medical History: Problem:Benign hypertension (disorder) , [...] t aking medications for mental health reasons. Assessment: * Assessment: 1. C hronic pain [...] status: Pending * Provider: ALICIA Toussaint Date: 1 Generated for Rick morelos/Sheldon/Ashley on: 04:05 PM CDT
[2025-06-22 19:18] VITALS: BP 68/48; PULSE 146; RESP 24; TEMP 36.8; O2SAT 100; BMI 25.7
--- OUTSIDE RECORDS SUMMARY | 2025-06-22 19:25 | XMS_ITS | Encounter Summary ---
Author Organization [facility] Address [address] [place] [address] Care Team Providers Care Rigger Apprentice Name Role Phone Unavailable Primary Care Provider Unavailabl e Encounter Details Date Type Department Care Team (Late st Contact Info) Description 03/02/2024 Lab Requisition [facility] Services [address] [place] [address] 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 us External Provider [facility] URINE ORDERABLES Final Res ult [facility] # [id number] [facility] [address] [address] documented in this encounter Visit Diagnoses Not on filedocumented in this encounter
--- OUTSIDE RECORDS SUMMARY | 2025-06-22 19:25 | XMS_ITS | Continuity of Care Document ---
Author Organization [facility], LJarrodLЕкатерина, [facility] ([facility]) Address [address] [place] [address] Care Team Providers Care Shellfish Shucker Name Role Phone GERMAN SORTO Primary Care Provider Assessment No assessment recorded. Plan of Treatment Reminders Order Date Submit Date Provider Last Modified By Organization Details Last Modified Time Details Appointments RECHECK 15 2024 08:00A Leonardo Sorto MD Not available Not available Not available Lab CBC 2024 025 [facility], [address], [address], [place], [address], 06/16/2025 11:40:03 renal function panel, serum 2024 025 [facility], [address] [place] [address] 248, [address], [place], [address], 06/18/2025 21:39:29 magnesium , serum or plasma 2024 025 [employer] [facility], [address] [place] [address] 248, [address], [place], [address], 06/18/2025 21:39:29 urinalysi s, complete 2024 025 [facility], [address], [address], [place], [address], 06/16/2025 10:06:27 culture, urine 2024 [facility], [address] [place] [address] 248, [address], [place], [address], 06/18/2025 21:39:32 protein:c reatinine ratio, urine 2024 [facility], [address] [place] [address] 248, [address], [place], [address], 06/18/2025 21:39:30 cytomegal ovirus (cmv) DNA, quantitat maurilio, blood/uri ne/csf/vi treous 2024 [facility], [address] [place] [address] 248, [address], [place], [address], 06/18/2025 21:39:31 tacrolimu s, blood 2024 [facility], [address] [place] [address] 248, [address], [place], [address], 06/18/2025 21:39:30 BK virus DNA, quantitat maurilio, serum 2024 [facility], [address] [place] [address] 248, [address], [place], [address], 06/18/2025 21:39:31 C diff toxin A+B, qualitati ve, stool 2024 [facility], [address] [place] [address] 248, [address], [place], [address], 06/16/2025 09:07:28 unlisted lab - gastroint estinal pathogen panel, real time PCR 2024 [facility], [address] [place] [address] 248, [address], [place], [address], 06/17/2025 19:33:52 Referral None recorded. Procedures None recorded. Surgeries None recorded. Imaging None recorded. Medication Orders None recorded. Patient TargetsNo targets recorded. Patient InstructionsNo instructions recorded. Reason for Referral None Reported. Problems Name Problem SNOMED Code Status Onset Date Resolution Date Notes Provider Name and Address Organization Details Recorded Time Human metapneu movirus infectio n [id number] 65202 Active Harika jose [facility], L.L.CJarrod 5 14:01:46 History of renal transpla nt 966641688 Active German Sorto MD [address] [place] [address], [address] , [facility], L.L.CJarrod 09:56:07 Neutrope vane 857456528 Completed 11/16/2024 Harika jose [facility], L.L.CJarrod 14:03:40 Osteonec rosis of head of humerus 247863213 Active Harika jose [facility] 5 14:04:17 Abdomina l pain 20135973 Completed 11/16/2024 Harika jose [facility] 13:52:38 Axonal sensorim otor neuropat hy 321999396 Completed 12/20/2024 Removal Reason: duplicat e Harika jose [facility], L.L.CJarrod 11:57:58 Gastroes ophageal reflux disease 938488575 Active Harika jose [facility] 13:57:58 Focal segmenta l glomerul gatitoos is 131047299 Active German Sorto MD [address] [place] [address], [phone] , [facility], L.L.CJarrod 5 10:54:47 Headache 68617674 Completed 11/16/2024 Harika jose [facility] 13:58:29 Dialysis finding 112408622 Completed 11/16/2024 Removal Reason: Chad jose, [facility] 13:56:50 An[facility] 276668758 [facility] 13:54:40 Spondylo listhesi s 650677269 Completed 12/20/2024 Removal Reason: Chad jose, [facility] 12:00:17 Thromboc ytopenic disorder 234996553 Completed 11/16/2024 [facility] 14:08:32 Arthriti s 5297271 [facility] 13:54:53 Immunosu ppressio n 99085154 [facility] 14:02:43 Hypoxemi a 159810783 Completed 11/16/2024 [facility] 14:02:24 Altered mental status 628664387 [facility] 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 13:57:28 History of polyp of colon 294244350 Completed 11/16/2024 [facility] 13:58:53 End-stag e renal disease 57250356 Completed 12/23/2024 history German Sorto MD [address] [place] [address], [phone] , [facility] 5 09:56:16 Hypocalc emia 9848414 Completed 11/16/2024 Harika jose, [facility] 5 14:02:16 Carpal tunnel syndrome 55240421 Active Harika jose [facility] 5 14:06:24 Paroxysm al supraven tricular tachycar gurdeep 22136257 Completed 11/16/2024 aHrika jose, [facility] 5 14:09:03 Pulmonar y hyperten johnny in systemic disorder 272265189 Active Harika jose, [facility] 5 14:06:17 Acidemia 14810326 Completed 11/16/2024 [facility] 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 5 11:48:35 Palpitat ions 53564758 Completed 11/16/2024 Harika jose [facility] 5 14:04:11 Leukopen ia 49141024 Completed 11/16/2024 Harika jose, [facility] 5 14:03:06 Paresthe sebastian 28366489 Completed 11/16/2024 [facility] 5 14:06:41 Low back pain 938498891 Completed 201610/16/2016 Low Back Pain - Status is Inactive ; 10/16/19 17 8:14AM by Sheri Reyna RN, Nikkyati on/Adden dum; Promoted ; acuity set as *; Not Available [facility] 3 03:16:32 Contact dermatit is 54765701 Completed 201610/16/2016 Eczema - Status is Inactive ; 10/16/19 17 8:14AM by Sheri Reyna RN, Annotati on/Adden dum; Promoted ; acuity set as *; Not Available [facility] 3 03:16:40 Chronic pain 78565445 Completed 202112/20/2024 Chronic Pain; Dr Flanagan Removal Reason: Chad jose [facility] 5 11:57:14 History of renal dialysis 543234182 Completed 202112/23/2024 Dialysis ; On M,W & F dr salter, nephrolo [facility]. Dr Salter , [facility] German Sorto MD [address] [place] [address], [phone] [facility] 5 09:56:22 Sleep apnea 47837350 Completed 202111/16/2024 Sleep Apnea; BiPAP machine; Severe Removal Reason: Chad jose [facility] 5 14:09:34 Hyperten sive disorder 27199175 Completed 202112/20/2024 HYPERTEN JOHNNY - BENIGN HYPERTEN JOHNNY; Impressi on: right now his amlodipi ne is held due to normal BP in the hospital . it was 140 yesterda y at the surgeons office - HYPERTEN JOHNNY - Status is Inactive Removal Reason: Chad jose [facility] 5 11:47:31 Gout 02853615 Active 2021 GOUT Harika jose [facility] 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 178969204 Active 2021 HYPERCHO LESTEROL EMIA - HYPERCHO LESTEROL EMIA - Status is Inactive Harika jose [facility], [place] 5 13:57:43 Irritabl e bowel syndrome 12963988 Active 2021 IRRITABL E BOWEL SYNDROME (Working Diagnosi s) Harika jose [facility], [place] 5 14:02:54 Obstruct maurilio sleep apnea syndrome 31446100 Active 2021 SEVERE OBSTRUCT MAURILIO SLEEP APNEA Harika jose [facility], [place] 5 14:03:52 Supraven tricular tachycar gurdeep 3645652 Completed 202312/20/2024 Harika jose [facility], [place] 5 11:59:47 [facility] hyperten johnny 38002617 Active 2023 German Sorto MD [address] [place] [address], [address] , [facility], Diane 10:54:38 Nodule of liver 242850992 Active 2023 Harika jose [facility], [place] 5 14:03:47 Hyperkal emia 39603067 Completed 202311/16/2024 Harika jose [facility], [place] 5 14:01:58 Metaboli c acidosis 14823096 Completed 202311/16/2024 Harika jose [facility], [place] 5 14:03:24 Paroxysm al atrial fibrilla tion 684073336 Active 2023 Harika jose [facility] 5 14:04:26 Solitary nodule of lung 305079238 Active 2023 Harika jose, [facility] 5 14:06:50 Chronic low back pain 617944401 Active 2024 Harika Swanson null, [facility] 5 13:55:53 Lumbar radiculo jen 983576933 Active 2024 Harika Swanson null, [facility] 5 14:03:11 Cervical radiculo jen 60350219 Active 2024 Harika Swanson null, [facility] 5 11:46:42 Spinal stenosis of lumbosac ral region 131327163 Active 2024 Harika Swanson null, [facility] 5 11:46:48 Anxiety 30259751 Active 2024 Harika Swanson null, [facility] 5 11:46:34 Hypergly cemia 77972159 Active 2024 Esther Kaveh null, [facility] 10:36:08 Cellulit is of right upper limb 38090092810 393016 Active 2024 German Sorto MD [address] [place] [address], [address] , [facility] 15:39:30 Low blood pressure 66856436 Active 2024 German Sorto MD [address] [place] [address], [phone] , [facility] 5 11:38:32 Asthenia 31423306 Active 2024 German Sorto MD [address] [place], [address] , [facility], Diane 11:30:12 Insomnia 087457451 Active 2024 German Sorto MD [address] [place], [address] , [facility], Diane 10:00:42 Problem Notes None recorded. Procedures Surgical History Date Name Laterality Status Provider Name and Address Organization Details Recorded Time transplant of kidney completed [facility], [place] 12/11/2023 08:29:18 Hernia Repair completed [facility], [place] 12/11/2023 08:29:30 Knee Surgery completed [facility], [place] 12/11/2023 08:29:41 Carpal Tunnel Surgery completed [facility], HeatherCJarrod 12/11/2023 08:29:50 Appendectomy completed [facility], [place] 12/11/2023 08:29:56 Breast Surgery completed [facility], LColinCJarrod 12/11/2023 08:30:11 Imaging Results None recorded. Procedure Notes None recorded. Medical Equipment None Reported. Allergies Allergen ID Allergen Name Allergen Category Reaction Reaction Severity Criticality Documentation Date Start Date Code Code System Note Provider Name and Address Organization Details Recorded Time 76341 oxycodone medicatio n confusion Not available Not available 03/03/2025 7804 RxNorm Phyllis Freeman [facility], [place] 17:27:25 33985 vancomyci n medicatio n itching Not available Not available 03/29/2025 96023 RxNorm when pushe d too fast Esther Linn [facility], [place] 09:25:38 83212 Levaquin medicatio n Not available Not available Not available 05/26/2025 08509 2 [facility]Norm [facility] Lauren[facility]arrod 10:23:59 Medications Name Sig Start Date Stop Date Status Note LastModified by Organization Details LastModified Time sd vit d3 1000 iu sg 100 take 1 capsule BY MOUTH EVERY DAY 12/23 completed Not Available Not Available Not Available vit b-12 tab 1000mcg 21st 110 TAKE 1 TABLET BY MOUTH EVERY DAY 11/18 completed Not Available Not Available Not Available losartan 50 mg tablet TAKE 1 TABLET BY MOUTH ONCE daily NEEDED FOR systolic BLOOD PRESSURE greater THAN 150 03/29 completed Not Available Not Available Not Available furosemid e 40 mg tablet TAKE ONE TABLET BY MOUTH DAILY 10/09 completed Not Available Not Available Not Available fluconazo le 100 mg tablet TAKE 1 TABLET BY MOUTH EVERY DAY FOR ONE DAY active Not Available Not Available No t Available megestrol 400 mg/10 mL (40 mg/mL) oral suspensio n take 10ml BY MOUTH EVERY DAY active Not Available Not Available No t Available valgancic lovir 450 mg tablet TAKE 2 TABLETS BY MOUTH TWICE DAILY active Not Available Not Available No t Available carvedilo l 25 mg tablet TAKE 1 TABLET BY MOUTH TWICE DAILY 10/09 completed Not Available Not Available Not Available nystatin 100,000 unit/mL oral suspensio n take 5ml BY MOUTH FOUR TIMES DAILY AFTER meal(s) FOR SEVEN DAYS active Not Available Not Available No t Available prednison e 10 mg tablet TAKE 4 TABLETS BY MOUTH EVERY DAY FOR THREE DAYS, THREE tabs daily FOR THREE DAYS, TWO tabs daily FOR THREE DAYS THEN ONE tab daily FOR THREE DAYS active Not Available Not Available No t Available doxycycli ne hyclate 100 mg capsule take 1 capsule BY MOUTH TWICE DAILY FOR SEVEN DAYS 06/04 completed Not Available Not Available Not Available bumetanid e 2 mg tablet TAKE 1 TABLET BY MOUTH DAILY as needed for edema 05/26 completed Not Available Not Available Not Available atorvasta tin 10 mg tablet TAKE 1 TABLET BY MOUTH NIGHTLY active Not Available Not Available No t Available tizanidin e 4 mg tablet take 1/2 to 1 tablet BY MOUTH EVERY 24 HOURS AT BEDTIME NEEDED FOR SPASMS 06/04 completed Not Available Not Available Not Available metoprolo l succinate ER 50 mg tablet,ex tended release 24 hr TAKE 1 TABLET BY MOUTH TWICE DAILY active Not Available Not Available No t Available cephalexi n 250 mg capsule take 1 capsule BY MOUTH THREE TIMES DAILY 12/23 completed Not Available Not Available Not Available fluconazo le 200 mg tablet TAKE 1 TABLET BY MOUTH EVERY DAY FOR 14 DAYS 05/26 completed Not Available Not Available Not Available sucralfat e 1 gram tablet TAKE ONE TABLET BY MOUTH TWICE DAILY FOR FOUR weeks 06/04 completed Not Available Not Available Not Available prednison e 20 mg tablet TAKE 3 TABLETS BY MOUTH EVERY DAY 05/26 completed Not Available Not Available Not Available metoprolo l succinate ER 100 mg tablet,ex tended release 24 hr take 1 capsule BY MOUTH TWICE DAILY 05/26 completed Not Available Not Available Not Available prednison e 5 mg tablet TAKE 1 TABLET BY MOUTH EVERY DAY 03/29 completed Not Available Not Available Not Available midodrine 5 mg tablet TAKE 1 TABLET BY MOUTH THREE TIMES DAILY do not give last DOSE of DAY AFTER 6pm or WITHIN FOUR hours of bedtime 05/26 completed Not Available Not Available Not Available diphenoxy late-atro pine 2.5 mg-0.025 mg tablet TAKE 2 TABLETS BY MOUTH FOUR TIMES DAILY NEEDED FOR diarrhea active Not Available Not Available No t Available Nexium 40 mg capsule,d elayed release two times daily 08/29 completed dose increase cs/smf; 06234; Recorded 01/04/20 22 8:47AM by Elyse Abdullahi (Víctor avendano through Jhony Kaur DO), Office Visit; Refill Quantity : 0; Not Available Not Available Not Available amlodipin e 5 mg tablet TAKE 1 TABLET BY MOUTH EVERY DAY 05/26 completed Not Available Not Available Not Available acyclovir 400 mg tablet TAKE 1 TABLET BY MOUTH THREE TIMES DAILY 06/16 completed Not Available Not Available Not Available allopurin ol 100 mg tablet daily 10/09 completed cs/smf; 56665; Recorded 01/04/20 22 8:47AM by Elyse Abdullahi (Víctor avendano through Jhony Kaur DO), Office Visit; Refill Quantity : 0; Not Available Not Available Not Available aspirin 81 mg tablet,de layed release TAKE 1 TABLET BY MOUTH EVERY DAY 10/19 completed Not Available Not Available Not Available spironola ctone 25 mg tablet TAKE 1 TABLET BY MOUTH DAILY 06/16 completed Not Available Not Available Not Available FiberCon 625 mg tablet Take every day by oral route. active Not Available Not Available No t Available Zofran 4 mg tablet every 6 hours as needed 10/09 completed 0; Recorded 05/23/20 10:23AM by Sheri Reyna, LIONEL, Office Visit; Not Available Not Available Not Available propranol ol 10 mg tablet TAKE 1 TABLET BY MOUTH every 20 minutes FOR THREE doses max. max of FIVE tablets in 24 hours 11/18 completed Not Available Not Available Not Available famotidin e 20 mg tablet TAKE 1 TABLET BY MOUTH TWICE DAILY active Not Available Not Available No t Available magnesium oxide 400 mg (241.3 mg magnesium ) tablet TAKE 1 TABLET BY MOUTH EVERY DAY active Not Available Not Available No t Available metoclopr amide 5 mg tablet TAKE 1 TABLET BY MOUTH THREE TIMES DAILY with meals 11/18 completed Not Available Not Available Not Available tamsulosi n 0.4 mg capsule TAKE ONE CAPSULE BY MOUTH DAILY active Not Available Not Available No t Available sodium bicarbona te 650 mg tablet TAKE 1 TABLET BY MOUTH TWICE DAILY active Not Available Not Available No t Available amlodipin e 10 mg tablet TAKE ONE TABLET BY MOUTH EVERY DAY 10/09 completed Not Available Not Available Not Available benzonata te 100 mg capsule TAKE 1 CAPSULE BY MOUTH THREE TIMES DAILY FOR 5 DAYS 11/18 completed Not Available Not Available Not Available doxycycli ne monohydra te 100 mg capsule Take 1 capsule twice a day by oral route for 7 days. 10/09 completed Not Available Not Available Not Available cephalexi n 500 mg capsule take 1 capsule BY MOUTH THREE TIMES DAILY for 10 days 03/29 completed Not Available Not Available Not Available hydralazi ne 100 mg tablet TAKE 1 TABLET BY MOUTH TWICE DAILY 06/04 completed Not Available Not Available Not Available pantopraz ole 40 mg tablet,de layed release TAKE 1 TABLET BY MOUTH TWICE DAILY active Not Available Not Available No t Available oseltamiv ir 75 mg capsule take 1 capsule BY MOUTH TWICE DAILY FOR 5 DAYS 11/18 completed Not Available Not Available Not Available losartan 25 mg tablet TAKE 1 TABLET BY MOUTH EVERY DAY 03/29 completed Not Available Not Available Not Available Phospha Neutral 250 mg tablet TAKE 1 TABLET BY MOUTH TWICE DAILY active Not Available Not Available No t Available gabapenti n 300 mg capsule take 1 capsule BY MOUTH EVERY DAY active Not Available Not Available No t Available monteluka st 10 mg tablet TAKE 1 TABLET BY MOUTH EVERY DAY 10/09 completed Not Available Not Available Not Available mupirocin 2 % topical ointment APPLY TO WOUND ON RIGHT ARM TWICE DAILY UNTIL HEALED 11/18 completed Not Available Not Available Not Available mirtazapi ne 15 mg tablet TAKE 1 TABLET BY MOUTH EVERY DAY active Not Available Not Available No t Available gabapenti n 100 mg capsule take 1 capsule BY MOUTH EVERY OTHER DAY 06/04 completed Not Available Not Available Not Available metoprolo l succinate ER 25 mg tablet,ex tended release 24 hr TAKE 2 TABLETS BY MOUTH EVERY MORNING 05/26 completed Not Available Not Available Not Available levofloxa anali 750 mg tablet TAKE 1 TABLET BY MOUTH EVERY DAY FOR SEVEN DAYS 05/26 completed Not Available Not Available Not Available albuterol sulfate HFA 90 mcg/actua tion aerosol inhaler INHALE TWO PUFFS EVERY 6 HOURS NEEDED FOR wheezing 04/01 completed Not Available Not Available Not Available ipratropi um bromide 42 mcg (0.06 %) nasal spray [place] 2 sprays 4 times a day by intranas al route. 2024 active Not Available Not Available Not Avai lable hydromorp bladimir 4 mg tablet TAKE 1 TABLET BY MOUTH EVERY 8 HOURS NEEDED MAX OF THREE PER DAY active Not Available Not Available No t Available ondansetr on 4 mg disintegr ating tablet PLACE ONE TABLET ON TONGUE EVERY 6 HOURS active Not Available Not Available No t Available losartan 100 mg tablet TAKE 1 TABLET BY MOUTH EVERY DAY 05/26 completed Not Available Not Available Not Available tacrolimu s 1 mg capsule, immediate -release TAKE 2 CAPSULES BY MOUTH TWICE DAILY 10/09 completed Not Available Not Available Not Available doxycycli ne hyclate 100 mg tablet TAKE 1 TABLET BY MOUTH TWICE DAILY for 7 days 05/26 completed Not Available Not Available Not Available calcitrio l 0.25 mcg capsule take 1 capsule BY MOUTH EVERY DAY 06/04 completed Not Available Not Available Not Available finasteri de 5 mg tablet TAKE 2 TABLETS BY MOUTH EVERY DAY active Not Available Not Available No t Available atovaquon e 750 mg/5 mL oral suspensio n take 10ml BY MOUTH EVERY DAY 11/18 completed Not Available Not Available Not Available Microlet Lancet USE DIRECTED TO test blood sugar TWICE DAILY NEEDED active Not Available Not Available No t Available metoclopr amide 10 mg tablet TAKE 1 TABLET BY MOUTH THREE TIMES DAILY BEFORE MEALS 10/09 completed Not Available Not Available Not Available amoxicill in 875 mg-potass ium clavulana te 125 mg tablet TAKE 1 TABLET BY MOUTH TWICE DAILY 12/31 completed Not Available Not Available Not Available tacrolimu s 0.5 mg capsule, immediate -release take 1 capsule BY MOUTH TWICE DAILY 08/29 completed Not Available Not Available Not Available oxycodone 5 mg tablet TAKE 1 TABLET BY MOUTH EVERY 6 HOURS NEEDED max of FOUR PER day 03/03 completed Not Available Not Available Not Available Vitamin D3 25 mcg (1,000 unit) capsule take 1 capsule BY MOUTH EVERY DAY 03/29 completed Not Available Not Available Not Available cholestyr amine-asp artame 4 gram oral powder for susp in a packet 11/18 completed Not Available Not Available Not Available bupropion HCl XL 150 mg 24 hr tablet, extended release TAKE 1 TABLET BY MOUTH EVERY DAY 06/04 completed Not Available Not Available Not Available metoprolo l tartrate 25 mg tablet TAKE 1 TABLET BY MOUTH TWICE DAILY at 9am and 9pm 05/26 completed Not Available Not Available Not Available mycopheno late sodium 180 mg tablet,de layed release TAKE 1 TABLET BY MOUTH TWICE DAILY 05/26 completed Not Available Not Available Not Available mycopheno late sodium 360 mg tablet,de layed release TAKE 1 TABLET BY MOUTH TWICE DAILY 06/04 completed Not Available Not Available Not Available magnesium L-lactate ER 84 mg tablet,ex tended release TAKE 1 TABLET BY MOUTH EVERY DAY 03/03 completed Not Available Not Available Not Available duloxetin e 20 mg capsule,d elayed release take 1 capsule BY MOUTH EVERY DAY 08/29 completed Not Available Not Available Not Available duloxetin e 30 mg capsule,d elayed release take 1 capsule BY MOUTH EVERY DAY AT BEDTIME with 60mg DOSE active Not Available Not Available No t Available duloxetin e 60 mg capsule,d elayed release take 1 capsule BY MOUTH EVERY DAY active Not Available Not Available No t Available tizanidin e 2 mg capsule daily 06/04 completed 0; Recorded 05/23/20 22 10:23AM by Sheri Reyna RN, Office Visit; Not Available Not Available Not Available sodium bicarbona te 12/23 completed Not Available Not Available Not Available acetamino phen 325 active Not Available Not Available Not Available atorvasta tin at bedtime 07/05 completed cs/smf; 28896; Recorded 01/04/20 22 8:47AM by Elyse Abdullahi (Authori juan alberto through Jhony Kaur DO), Office Visit; Refill Quantity : 0; Not Available Not Available Not Available Morphine Sulfate CR every 4-6 hrs. as needed 10/[address] Flanagan . Dose changed by [facility] 0; Recorded 05/23/20 22 10:23AM by Sheri Reyna RN, Office Visit; Not Available Not Available Not Available metoprolo l tartrate daily 10/[address] Sahu; 0; Recorded 05/23/20 22 10:23AM by Sheri Reyna RN, Office Visit; Not Available Not Available Not Available Vitamin D daily 10/09 completed 0; Recorded 05/23/20 22 10:23AM by Sheri Reyna RN, Office Visit; Not Available Not Available Not Available Neupogen active Not Available Not Avai lable Not Available gabapenti n daily 05/29 completed 0; Recorded 05/23/20 22 10:23AM by Sheri Reyna RN, Office Visit; Not Available Not Available Not Available ondansetr on 12/23 completed Not Available Not Available Not Available Chlorasep tic Throat [place] 1.4 % aerosol USE THREE SPRAYS TO affected mucosal area EVERY 2 HOURS NEEDED FOR sore throat active Not Available Not Available No t Available cholecalc iferol (vitamin D3) 25 mcg (1,000 unit) tablet TAKE 1 TABLET BY MOUTH EVERY DAY active Not Available Not Available No t Available FeroSul 325 mg (65 mg iron) tablet TAKE 1 TABLET BY MOUTH EVERY DAY with breakfas t active Not Available Not Available No t Available amlodipin e besylate (bulk) daily 05/29 completed 0; Recorded 05/23/20 22 10:23AM by Sheri Reyna RN, Office Visit; Not Available Not Available Not Available Jo Allergy 180 mg tablet Take 1 tablet every day by oral route for 30 days. 06/04 completed Not Available Not Available Not Available Eliquis 5 mg tablet TAKE 1 TABLET BY MOUTH TWICE DAILY 03/03 completed Not Available Not Available Not Available Jardiance 10 mg tablet TAKE 1 TABLET BY MOUTH EVERY DAY 10/09 completed Not Available Not Available Not Available Jardiance 25 mg tablet TAKE 1 TABLET BY MOUTH DAILY 05/26 completed Not Available Not Available Not Available Flonase Allergy Relief 50 mcg/actua tion nasal spray,israel pension [place] 1 spray every day by intranas al route. 2024 active Not Available Not Available Not Avai lable duloxetin e 40 mg capsule,d elayed release take 1 capsule BY MOUTH EVERY DAY 06/04 completed Not Available Not Available Not Available Envarsus XR 1 mg tablet,ex tended release TAKE 1 TABLET BY MOUTH EVERY DAY active Not Available Not Available No t Available tacrolimu s XR 0.75 mg tablet,ex tended release 24 hr Take 2 tablets every day by oral route. active Not Available Not Available No t Available Veltassa 8.4 gram oral powder packet take 8.4g BY MOUTH daily 10/09 completed Not Available Not Available Not Available Veltassa 16.8 gram oral powder packet take 16.8 grams( ONE PACKET) BY MOUTH DAILY 05/26 completed Not Available Not Available Not Available Veltassa 12/23 completed Not Available Not Available Not Available Lagevrio 200 mg capsule (EUA) TAKE FOUR CAPSULES BY MOUTH TWICE DAILY 10/09 completed Not Available Not Available Not Available albuterol 90 mcg-budes onide 80 mcg/actua tion HFA aerosol inhaler Inhale 2 inhalati ons as needed by inhalati on route. 10/09 completed Not Available Not Available Not Available Contour Plus Test Strip USE DIRECTED TO test blood sugar TWICE DAILY NEEDED active Not Available Not Available No t Available Contour Plus Blue Meter USE DIRECTED active Not Available Not Available No t Available Vitals Date Recorded Body height Body mass index (BMI) Body weight Oxygen saturation Oxygen saturation in Arterial blood by Pulse oximetry Heart rate Respiratory rate Body temperature Systolic And Diastolic Provider Name and Address Organization Details Last Updated DateTime 5 182.88 cm 24.1 kg/m2 00897.4 4 g 99 % 99 % 82 /min 20 /min 97.3 [degF] 104/70 mm[Hg] Harika Swanson [facility] 5 09:29:29 Social History Question Answer Notes LastModified by [employer] Details LastModified Time Tobacco Smoking Status [facility] 10/09/2023 09:09:17 Are You Blind Or Do You Have Difficulty Seeing? No [email or web address] Information not available 10/09/2023 What Is Your Level Of Caffeine Consumption? Moderate Information not available 07/22/2024 Are You Deaf Or Do You Have Serious Difficulty Hearing? No [email or web address] Information not available 10/09/2023 What Type Of Diet Are You Following? REGULAR Information not available 07/22/2024 When Did You Quit Smoking? 6-10yearssinc elastcigarett e [email or web address] Information not available 10/09/2023 Are You Following A Low Salt Diet? Yes Information not available 07/22/2024 What Was The Date Of Your Most Recent Tobacco Screening? 06/11/2025 [email or web address] Information not available 06/11/2025 What Is Your Current Pack Years? 20-29packyear s [email or web address] Information not available 10/09/2023 Do You Have Difficulty Walking Or Climbing Stairs? No [email or web address] Information not available 10/09/2023 Do You Have Any Dietary Restrictions? Yes Information not available 07/22/2024 Sex: Unknown Functional Status Question Answer Note LastModified by Organizat ion Details LastModified Time Do you use any illicit or recreational drugs? No Information not available 07/22/2024 What is your level of alcohol consumption? None Information not available 07/22/2024 Are you currently employed? No Information not available 07/22/2024 Are you able to walk independently without assistance or assistive devices? YESWOREST [email or web address] Information not available 10/09/2023 Do you have difficulty doing errands alone? No [email or web address] Information not available 10/09/2023 Are you able to care for yourself independently? Yes [email or web address] Information not available 10/09/2023 Do you have difficulty dressing, bathing, grooming, or toileting? No [email or web address] Information not available 10/09/2023 Mental Status Question Answer Note LastModified by Organization D etails LastModified Time Do you have difficulty concentrating, remembering or making decisions? No [email or web address] Information no t available 10/09/2023 Family History Nothing Reported Notes:Brother: Diabetes Talita itus COPD, Completed Stroke, Hypercholesterolemia, Mehnaz; Cholecystectomy., Don; HTN. DM. Obesity. of CAD., 2 Sis, 2 Bro; HTN., Heart disease in male family member before age 55 Father: Diabetes Mellitus, Hypertension: Denied Mother: Hypertension: Denied, Arthritis: Denied Paternal Grandmother: Diabetes Mellitus Sister: Diabetes Mellitus Medical History No medical history recorded. Immunizations Vaccine Type Date Status Note Provider Nam e and Address Organization Details Recorded Time zoster recombinant 3 completed [facility] 07/16/2023 08:58:36 COVID-19, mRNA, LNP-S, PF, 30 mcg/0.3 mL dose 2 completed [facility] 07/16/2023 08:58:37 COVID-19, mRNA, LNP-S, PF, 30 mcg/0.3 mL dose 1 completed [facility] 07/16/2023 08:58:37 COVID-19, mRNA, LNP-S, PF, 30 mcg/0.3 mL dose 1 completed [facility] 07/16/2023 08:58:37 COVID-19, mRNA, LNP-S, PF, 30 mcg/0.3 mL dose 2 completed [facility] 07/16/2023 08:58:37 Pneumococcal conjugate PCV20, polysaccharide [id number] conjugate, adjuvant, PF 3 completed [facility] 07/16/2023 08:58:37 COVID-19, mRNA, LNP-S, bivalent, PF, 30 mcg/0.3 mL dose 2 completed [facility] 07/16/2023 08:58:37 Tdap 3 completed [facility] 07/16/2023 08:58:37 Influenza, high-dose, trivalent, PF 0 completed [facility] 07/16/2023 08:58:37 Influenza, split virus, trivalent, preservative 2 completed [facility] 07/16/2023 08:58:37 Td (adult), 2 Lf tetanus toxoid, preservative free, adsorbed 5 completed [facility] 07/16/2023 08:58:37 tetanus toxoid, adsorbed 4 completed [facility] 07/16/2023 08:58:37 zoster recombinant 3 completed Arelis Dubon [facility] 03/21/2024 14:13:57 Influenza, split virus, trivalent, preservative 3 completed Arelis jose [facility] 03/21/2024 14:13:57 COVID-19, mRNA, LNP-S, PF, 50 mcg/0.5 mL 4 completed Not Available [facility] 06/16/2025 09:21:51 Influenza, split virus, trivalent, PF 4 completed Not Available [facility] 06/16/2025 09:21:51 COVID-19, mRNA, LNP-S, PF, jarvis-sucrose, 30 mcg/0.3 mL 4 completed Not Available [facility] 06/16/2025 09:21:51 Hep B, adult 5 completed Not Available [facility] 06/16/2025 09:21:51 MMR 5 completed Not Available [facility] 06/16/2025 09:21:51 Hep B, adult 5 completed Not Available [facility] 06/16/2025 09:21:51 Influenza, split virus, trivalent, PF 5 completed Not Available [facility] 06/16/2025 09:21:51 Td(adult) unspecified formulation 2 completed JOAN jose [facility] 07/16/2023 08:58:37 Influenza, split virus, trivalent, preservative 7 completed JOAN jose [facility] 07/16/2023 08:58:37 Influenza, split virus, trivalent, preservative 6 completed JOAN jose [facility] 07/16/2023 08:58:37 Past Encounters Encounter ID Performer Location Encounter Start Date Encounter Closed Date Diagnosis/Indication Diagnosis SNOMED-CT Code Diagnosis ICD10 Code Diagnosis IMO Codes Diagnosis Note [id number] German Sorto MD [facility] ([facility]) [address] [place] [address] 05/26/2025 09:21:56 05/27/2025 10:29:20 History of renal transplant 653614910 Z48.22 [id number] Continue to follow-up with specialist s. [id number] German Sorto MD [facility] ([facility]) [address] [place] [phone] 05/26/2025 10:10:04 05/26/2025 11:13:28 Essential hypertension 43858298 I10 - Continue monitoring blood pressure at home. - Persist with metoprolol as the sole antihypert ensive. History of renal transplant 234602705 Z48.22 - Plan a follow-up with nephrology through a video consult. Focal segm ental glomerulosclerosis 684765869 N26.9 - Adhere to regular specialty follow-ups and plasmapher esis. 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 Orthostati c hypotension 83574273 I95.1 - Educate on symptom management with postural modificati ons. Tear of skin 245837736 S 51.019A - Maintain wound care; monitor for infection. Asthenia 98378641 R53.1 22352 The patient does have significan t weakness post hospitaliz ation. The patient would benefit from physical therapy evaluation and treatment to help build up strength and improve stability. The patient is currently home bound so we will proceed with referral to home health to provide theses services. [id number] German Sorto MD [facility] ([facility]) [address] [place] [phone] 06/04/2025 09:48:07 06/07/2025 09:09:27 History of renal transplant 229922220 Z48.22 - Plan a follow-up with nephrology through a video consult. [id number] FRIDA HERNANDEZ APRN [facility] ([facility]) [address] [place] [phone] 06/11/2025 09:38:50 06/14/2025 15:05:40 Pain in throat 162176993 J02.9 38642 Candidiasis of mouth 797 93974 B37.0 149889 [id number] German Sorto MD [facility] ([facility]) [address] [place] [phone] 06/16/2025 09:02:37 06/17/2025 11:20:09 History of renal transplant 853221881 Z48.22 - Plan a follow-up with nephrology through a video consult. Diarrhea o f presumed infectious origin 59095929 R19.7 97069 [id number] German Sorto MD [facility] ([facility]) [address] [place] [address] 06/16/2025 09:15:11 06/16/2025 10:07:59 Insomnia 100309857 G47.00 54538634 - Mirtazapin e prescribed for sleep, noted prior sleep aid complicati ons. Altered mental status 41 1542152 R41.82 - Labs ordered to assess potential underlying issues; follow up planned for further neurologic evaluation . [facility] 350782886 Z91.81 4639660 - Advised on consistent walker use and safety strategies . History of renal transplant 787565353 Z48.22 - Monitoring with lab evaluation , gwen mitchell transplant history. Health Concerns Section Related Observation LastModified by Organization Detai ls LastModified Time None Recorded Concern Status LastModified by Organization Details LastModified Time None Recorded Payers Encounter Date Sequence Insurance Name Policy Number Policy Jose Covered Member ID Jose Member ID Guarantor Name 06/16/2025 1 [employer] [id number] 1 Leslee Mccabe [id number] Mark Mccabe 06/16/2025 2 [employer] (MEDICARE REPLACEMENT/ ADVANTAGE - HMO) Mark Mccabe [id number] Mark Mccabe Notes Date Note Type Note Provider Name and Address Organization Details Recorded Time 06/16/2025 text/html The patient is a 60-year-old male presenting with altered mental status and insomnia. Over the last week, he has experienced increased confusion, hallucinations, and memory concerns, occurring daily. The patient reports a history of kidney transplant and prior medication adjustments that might be contributing factors. Insomnia remains a persistent issue, with previous trials of sleep aids resulting in nightmares. Recent confusion episodes include misplacement and inappropriate behavior, which have raised concerns about his current cognitive function. Labs were conducted today for evaluation. - Labs: Ordered today for evaluation of potential infection and kidney function. German Sorto MD [address] [place], [phone], [facility], [place] 06/16/2025 10:22:27
--- OUTSIDE RECORDS SUMMARY | 2025-06-22 19:25 | XMS_ITS | Encounter Summary ---
Author Organization [facility] Address [address] [place] [address] Care Team Providers Care Washroom Attendant Name Role Phone Unavailable Primary Care Provider Unavailabl e Encounter Details Date Type Department Care Team (Latest Contact Info) Description 06/02/2004 Outpatient Historical [facility] [address] [facility] [address] [place] [phone] Alejandro Guevara MD [address] [facility] [address] [place] [address] JOINT PAIN-MULT JTS (Primary Dx) Social History Tobacco Use Types Packs/Day Years Used Date Smoking Tobacco: Never Assessed Sex and Gender Information Value Date Recorded Sex Assigned at Not on file 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
--- OUTSIDE RECORDS SUMMARY | 2025-06-22 19:25 | XMS_ITS | Encounter Summary ---
Author Organization [facility] Address [address] [place] [address] Care Team Providers Care Orchid Superintendent Name Role Phone Unavailable Primary Care Provider Unavailabl e Encounter Details Date Type Department Care Team (Latest Contact Info) Description 06/07/2004 Outpatient Historical [facility] [address] [place] [phone] Alejandro Guevara MD [address] [phone] JOINT DIS NOS-SHLDER (Primary Dx) Social History Tobacco Use Types Packs/Day Years Used Date Smoking Tobacco: Never Assessed Sex and Gender Information Value Date Recorded Sex Assigned at Not on file 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
--- OUTSIDE RECORDS SUMMARY | 2025-06-22 19:25 | XMS_ITS | Data Portability ---
Author Organization PETE Orestes Lee [facility], [facility], [facility] Address [address] [address] Care Team Providers Care Pecan Picker Name Role Phone GERMAN SORTO Primary Care Provider [phone] Assessment Encounter Date Assessment Date Assessment LastModified by Organization Details LastModified Time 06/16/2025 06/16/2025 60-year-old male with a history of insomnia and kidney transplant presenting with altered mental status marked by confusion, hallucinations , and memory concerns which have become more frequent. Persistent insomnia has complicated his sleep health and overall wellbeing. Labs done today will aid in assessing underlying factors including infection and kidney function. [email or web address] Not available 06/16/2025 10:22:08 Plan of Treatment Reminders Order Date Submit Date Provider Last Modified By Organization Details Last Modified Time Details Appointments RECHECK 15 2024 08:00A M German Sorto MD Not available Not available Not available Lab CBC 2024 025 ELINOR [facility], [address], [address], [place], [address], 06/16/2025 11:40:03 renal function panel, serum 2024 025 [employer] [facility], [address] [place] [address] 248, [address], [place], [address], 06/18/2025 21:39:29 magnesium , serum or plasma 2024 025 [employer] [facility], [address] [place] [address] 248, [address], [place], [address], 06/18/2025 21:39:29 urinalysi s, complete 2024 ELINOR Orestes [facility], [address], [address], [place], [address], 06/16/2025 10:06:27 culture, urine 2024 [employer] [facility], [address] [place] [address], [address], [place], [address], 06/18/2025 21:39:32 protein:c reatinine ratio, urine [address] [facility], [address] [place] [address], [address], [place], [address], 06/18/2025 21:39:30 cytomegal ovirus (cmv) DNA, quantitat maurilio, blood/uri ne/csf/vi treous [address] [facility], [address] [place] [address], [address], [place], [address], 06/18/2025 21:39:31 tacrolimu s, blood [address] [facility], [address] [place] [address], [address], [place], [address], 06/18/2025 21:39:30 BK virus DNA, quantitat maurilio, serum [address] [facility], [address] [place] [address], [address], [place], [address], 06/18/2025 21:39:31 C diff toxin A+B, qualitati ve, stool [address] [facility], [address] [place] [address], [address], [place], [address], 06/16/2025 09:07:28 unlisted lab - gastroint estinal pathogen panel, real time PCR [address] [facility], [address] [place] [address], [address], [place], [address], 06/17/2025 19:33:52 pharyngea l pathogens DNA and RNA panel, KORIN+non-p robe, throat 2024 [email or web address] [facility] [address] [place] [address], [address], 06/13/2025 09:31:29 CBC - ALL LABS ORDERED BY RENAL TRANSPLAN T CLINIC/ WILL FAX YF 2024 FRESNO [facility], [address] [place] [address], [facility] [place], [address], 06/04/2025 10:11:30 protein:c reatinine ratio, urine [address] [facility], [address] [place] [address], [address], [place], [address], 06/08/2025 21:54:38 tacrolimu s, blood 2024 [employer] [facility], [address] [place] [address], [address], [place], [address], 06/08/2025 21:54:38 BK virus DNA, quantitat maurilio, serum [address] [facility], [address] [place] [address], [address], [place], [address], 06/08/2025 21:54:39 renal function panel, serum 2024 [facility], [address], [address], [place], [address], 06/08/2025 21:54:37 cytomegal ovirus (cmv) DNA, quantitat maurilio, blood/uri ne/csf/vi treous 2024 [email or web address], [address] [place] [address], [address], [place], [address], 06/08/2025 21:54:39 magnesium , serum or plasma 2024 [facility], [address] [place] [address], [address], [place], [address], 06/08/2025 21:54:37 urinalysi s, complete 2024 FRESNO [facility], [address], [address], [place], [address], 06/04/2025 10:33:38 culture, urine 2024 [employer] [facility], [address] [place] [address], [address], [place], [address], 06/08/2025 21:54:39 CBC - ORDERED BY RENAL TRANSPLAN T CLINIC/ WILL FAX YF 2024 [facility], [address], [address], [place], [address], 05/26/2025 09:44:02 protein:c reatinine ratio, urine 2024 [facility]OR[facility], [address] [place] [address], [address], [place], [address], 05/29/2025 15:06:19 tacrolimu s, blood 2024 025 ELINORValid[facility], [address], [address], [place], [address], 05/29/2025 15:06:20 BK virus DNA, quantitat maurilio, serum [address] [facility], [address] [place] [address], [address], [place], [address], 05/29/2025 15:06:21 renal function panel, serum [address] [facility], [address] [place] [address], [address], [place], [address], 05/29/2025 15:06:19 cytomegal ovirus (cmv) DNA, quantitat maurilio, blood/uri ne/csf/vi treous [address] [facility], [address] [place] [address], [address], [place], [address], 05/29/2025 15:06:20 magnesium , serum or plasma [address] [facility], [address] [place] [address], [address], [place], [address], 05/29/2025 15:06:18 urinalysi s, complete 2024 [facility], [address], [address], [place], [address], 05/26/2025 12:17:13 culture, urine 2024 [employer] [facility], [address] [place] [address], [address], [place], [address], 05/29/2025 15:06:21 Referral None recorded. Procedures None recorded. Surgeries None recorded. Imaging None recorded. Medication Orders mirtazapi ne 15 mg tablet 2024 025 [facility] [place], [address] [place], [address], 06/16/2025 10:23:31 nystatin 100,000 unit/mL oral suspensio n 2024 025 [facility] [place], [address] [place], [address], 06/11/2025 18:33:39 Patient TargetsNo targets recorded. Patient Instructions Encounter Date Encounter Id Patient Instructions Last Modified By Organization Details Last Modified Time 06/11/2025 [id number] Follow up with Nishant [place] for further eval and treatment [email or web address] Not available 06/12/2025 08:11:51 06/16/2025 [id number] - Take Mirtazapi ne as directed at bedtime. - Use your walker at all times to minimize fall risk. - Monitor for any signs of infection such as fever or burning with urination. - Attend follow-up appointments in [place] as scheduled. - Report any new or worsening symptoms promptly. - Continue taking existing medications as directed and be prepared to discuss them at your follow-up. - Engage in safe sleep practices and avoid any activities that exacerbate insomnia. [email or web address] Not available 06/16/2025 10:03:26 During the visit , I discussed the patient's altered mental status and insomnia, considering the potential contributing factors of his kidney transplant history and risk of infection. Mirtazapine was chosen to address sleep disturbances, and informed consent regarding its usage was obtained after explaining possible side effects. I ordered labs to identify potential infections or kidney function decline as underlying causes of his cognitive changes. 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 The plan addresses both immediate concerns and long-term health maintenance strategies. [email or web address] Not available 06/16/2025 10:03:26 Reason for Referral None Reported. Problems Name Problem SNOMED Code Status Onset Date Resolution Date Notes Provider Name and Address Organization Details Recorded Time Human metapneu movirus infectio n 48918771991 54160 Active PETE Mcmillan - [facility], LBarbara 5 14:01:46 History of renal transpla nt 354286962 Active German Sorto MD [address] [place], [address] , [facility] 5 09:56:07 Neutrope vane 550030802 Completed 11/16/2024 Harika jose [facility] 5 14:03:40 Osteonec rosis of head of humerus 869140592 Active Harika jose, [facility] 5 14:04:17 Abdomina l pain 67701557 Completed 11/16/2024 Harika jose [facility] 5 13:52:38 Axonal sensorim otor neuropat hy 625380820 Completed 12/20/2024 Removal Reason: duplicat Zehra jose [facility] 11:57:58 Gastroes ophageal reflux disease 058048618 Active Harika jose [facility] 13:57:58 Focal segmenta l glomerul oscleros is 805154709 Active German Sorto MD [address] [place] [address], [address] , [facility] 5 10:54:47 Headache 16624392 Completed 11/16/2024 Harika jose [facility] 5 13:58:29 Dialysis finding 355297350 Completed 11/16/2024 Removal Reason: Chad jose [facility] 5 13:56:50 Anemia 159308207 Active Harika jose [facility] 5 13:54:40 Spondylo listhesi s 719584857 Completed 12/20/2024 Removal Reason: duplicat e Harika jose, [facility] 5 12:00:17 Thromboc ytopenic disorder 965745564 Completed 11/16/2024 Harika Sky jose [facility] 5 14:08:32 Arthriti s 8289796 Active Harika jose, [facility] 5 13:54:53 Immunosu ppressio n 28854691 Active Harika Swanson rebeca, [facility] 5 14:02:43 Hypoxemi a 171719777 Completed 11/16/2024 Harika jose [facility] 5 14:02:24 Altered mental status 016323204 Active Harika jose, [facility] 5 13:53:51 Disorder of the peripher al nervous system 00091906 Active Harika jose [facility] 5 13:57:28 History of polyp of colon 335414717 Completed 11/16/2024 Harika Sky rebeca [facility] 5 13:58:53 End-stag e renal disease 05055650 Completed 12/23/2024 history German Sorto MD [address] [place], [address] , [facility] 5 09:56:16 Hypocalc emia 5127528 Completed 11/16/2024 Harika Swanson rebeca [facility] 5 14:02:16 Carpal tunnel syndrome 48591162 Active Harikajb Swanson rebeca [facility] 5 14:06:24 Paroxysm al supraven tricular tachycar gurdeep 70860043 Completed 11/16/2024 Harika jose, [facility] 5 14:09:03 Pulmonar y hyperten johnny in systemic disorder 056923274 Active Harika jose, [facility] 5 14:06:17 Acidemia 26382357 Completed 11/16/2024 Harika jose, [facility] 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 5 11:48:35 Palpitat ions 18415034 Completed 11/16/2024 Harika jose, [facility] 5 14:04:11 Leukopen ia 52458365 Completed 11/16/2024 [facility] 5 14:03:06 Paresthe sebastian 22951306 Completed 11/16/2024 [facility] 5 14:06:41 Low back pain 933084149 Completed 201610/16/2016 Low Back Pain - Status is Inactive ; 10/16/19 17 8:14AM by Sheri Reyna RN, Anitra on/Adden dum; Promoted ; acuity set as *; Not Available [facility] 3 03:16:32 Contact dermatit is 18474423 Completed 201610/16/2016 Eczema - Status is Inactive ; 10/16/19 17 8:14AM by Sheri Reyna RN, Anitra on/Adden dum; Promoted ; acuity set as *; Not Available [facility] 3 03:16:40 Chronic pain 11742019 Completed 202112/20/2024 Chronic Pain; Dr Flanagan Removal Reason[facility] 5 11:57:14 History of renal dialysis 548375261 Completed 202112/23/2024 Dialysis ; On M,W & F dr salter, nephrolo rust, [facility]. Dr Salter , [facility] German Sorto MD [address] [place] [address], [address] , [facility] 5 09:56:22 Sleep apnea 94157133 Completed 202111/16/2024 Sleep Apnea; BiPAP machine; Severe Removal Reason: destinamrit parrish Harika jose [facility] 5 14:09:34 Hyperten sive disorder 74608156 Completed 202112/20/2024 HYPERTEN JOHNNY - BENIGN HYPERTEN JOHNNY; Impressi on: right now his amlodipi ne is held due to normal BP in the hospital . it was 140 yesterda y at the surgeons office - HYPERTEN JOHNNY - Status is Inactive Removal Reason: Chad jose [facility] 5 11:47:31 Gout 64636798 Active 2021 GOUT [facility] 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 5 13:57:43 Irritabl e bowel syndrome 09304636 Active 2021 IRRITABL E BOWEL SYNDROME (Working Diagnosi s) Harika jose [facility] 5 14:02:54 Obstruct maurilio sleep apnea syndrome 15051003 Active 2021 SEVERE OBSTRUCT MAURILIO SLEEP APNEA Harika Sky rebeca, [facility] 5 14:03:52 Supraven tricular tachycar gurdeep 2239810 Completed 202312/20/2024 Harika Sky rebeca [facility] 5 11:59:47 Essentia l hyperten johnny 65218926 Active 2023 German Sorto MD [address] [place] [address], [address] , [facility] Melinda[facility] 5 10:54:38 Nodule of liver 019139593 Active 2023 Harika jose [facility], LJarrodL.CJarrod 5 14:03:47 Hyperkal emia 59144388 Completed 202311/16/2024 Harika jose [facility] 5 14:01:58 Metaboli c acidosis 89279771 Completed 202311/16/2024 Harika jose [facility] LaurenL.C. 5 14:03:24 Paroxysm al atrial fibrilla tion 537780681 Active 2023 Harika jose [facility] 5 14:04:26 Solitary nodule of lung 548666943 Active 2023 Harika jose [facility] 5 14:06:50 Chronic low back pain 885372905 Active 2024 Harika jose [facility]L.CJarrod 5 13:55:53 Lumbar radiculo jen 094945247 Active 2024 Harika Sky null, [facility] 5 14:03:11 Cervical radiculo jen 62156267 Active 2024 Harikajb Swanson null, [facility] 11:46:42 Spinal stenosis of lumbosac ral region 827953048 Active 2024 Harika Sky null, [facility] 11:46:48 Anxiety 11218724 Active 2024 Harika Swanson null, [facility] 11:46:34 Hypergly cemia 38008404 Active 2024 Esther Kaveh null, [facility] 10:36:08 Cellulit is of right upper limb 56362019243 683688 Active 2024 German Sorto MD [address] [place] [address], [address] , [facility] 15:39:30 Low blood pressure 38434219 Active 2024 German Sorto MD [address] [place] [address], [address] , [facility] 11:38:32 Asthenia 81989118 Active 2024 German Sorto MD [address] [place] [address], [address] , [facility] 11:30:12 Insomnia 790695989 Active 2024 German Sorto MD [address] [place] [address], [address] , [facility] 10:00:42 Problem Notes None recorded. Procedures Surgical History Date Name Laterality Status Provider Name and Address Organization Details Recorded Time transplant of kidney completed [facility], Diane 12/11/2023 08:29:18 Hernia Repair completed [facility], Diane 12/11/2023 08:29:30 Knee Surgery completed [facility], Diane 12/11/2023 08:29:41 Carpal Tunnel Surgery completed [facility], Diane 12/11/2023 08:29:50 Appendectomy completed [facility], Diane 12/11/2023 08:29:56 Breast Surgery completed [facility], Diane 12/11/2023 08:30:11 Imaging Results None recorded. Procedure Notes None recorded. Medical Equipment None Reported. Allergies Allergen ID Allergen Name Allergen Category Reaction Reaction Severity Criticality Documentation Date Start Date Code Code System Note Provider Name and Address Organization Details Recorded Time 60366 oxycodone medicatio n confusion Not available Not available 03/03/2025 7804 RxNorm Phyllis Freeman [facility], Diane 17:27:25 61200 vancomyci n medicatio n itching Not available Not available 03/29/2025 20737 RxNorm when pushe d too fast Esther Linn [facility], Diane 09:25:38 83509 Levaquin medicatio n Not available Not available Not available 05/26/2025 17819 2 RxNorm [facility] 10:23:59 Medications Name Sig Start Date Stop [...] times daily 08/29 completed dose increase cs/smf; 79001; Recorded 01/04/20 22 8:47AM by Elyse Abdullahi (Authori zed through Jhony Buddy KaurDO keyla), Office Visit; Refill Quantity : 0; Not Available Not Available Not Available amlodipin e 5 mg tablet TAKE 1 TABLET BY MOUTH EVERY DAY 05/26 completed Not Available Not Available Not Available acyclovir 400 mg tablet TAKE 1 TABLET BY MOUTH THREE TIMES DAILY 06/16 completed Not Available Not Available Not Available allopurin ol 100 mg tablet daily 10/09 completed cs/smf; 00544; Recorded 01/04/20 22 8:47AM by Elyse Abdullahi (Authori juan alberto through Jhony Buddy KaurDO), Office Visit; Refill Quantity : 0; Not [...] as needed 10/09 completed 0; Recorded 05/23/20 22 10:23AM [...] bromide 42 mcg (0.06 %) nasal spray Morgan 2 sprays 4 times a day by [...] atorvasta tin at bedtime 07/05 completed cs/smf; 42556; Recorded 01/04/20 22 8:47AM by Elyse Abdullahi (Authori juan alberto through Jhony Kaur DO), Office Visit; Refill Quantity : 0; Not Available Not Available Not Available Morphine Sulfate CR every 4-6 hrs. as needed 10/[address] Flanagan . Dose changed by [facility] 0; Recorded 05/23/20 22 10:23AM by Sheri Reyna, LIONEL, Office Visit; Not Available Not Available Not Available metoprolo l tartrate daily 10/[address] Sahu; 0; Recorded 05/23/20 22 10:23AM by Sheri Reyna, LIONEL, Office Visit; [...] Not Available Not Available Chlorasep tic Throat Morgan 1.4 % aerosol USE THREE SPRAYS TO [...] Relief 50 mcg/actua tion nasal spray,israel pension Morgan 1 spray every day by intranas al [...] and Address Organization Details Last Updated DateTime 10/01/202 5 182.88 cm 24.8 kg/m2 32713.4 g 99 % 99 % 100 /min 22 /min 97.5 [degF] 100/68 mm[Hg] Harika Swanson [facility] 5 10:22:41 Date Recorded Body height Body mass index (BMI) Body weight Body temperature Oxygen saturation Oxygen saturation in Arterial blood by Pulse oximetry Heart rate Systolic And Diastolic Provider Name and Address Organization Details Last Updated DateTime 5 182.88 cm 24.4 kg/m2 22841.6 3 g 98.4 [degF] 99 % 99 % 87 /min 122/64 mm[Hg] Christina Dominguez [facility] 5 09:54:45 Date Recorded Body height Body mass index (BMI) Body weight Oxygen saturation Oxygen saturation in Arterial blood by Pulse oximetry Heart rate Respiratory rate Body temperature Systolic And Diastolic Provider Name and Address Organization Details Last Updated DateTime 5 182.88 cm 24.1 kg/m2 91151.4 4 g 99 % 99 % 82 /min 20 /min 97.3 [degF] 104/70 mm[Hg] Harika Swanson [facility] 5 09:29:29 Social History Question Answer Notes LastModified by Organizat ion Details LastModified Time Tobacco Smoking Status [facility] 10/09/2023 09:09:17 Are You Blind Or Do You Have Difficulty Seeing? No Information not available 10/09/2023 What Is Your Level Of Caffeine Consumption? Moderate Information not available 07/22/2024 Are You Deaf Or Do You Have Serious Difficulty Hearing? No [email or web address] Information not available 10/09/2023 What Type Of Diet Are You Following? REGULAR Information not available 07/22/2024 When Did You Quit Smoking? 6-10yearssinc elastcigarett e [email or web address] Information not available 10/09/2023 Are You Following A Low Salt Diet? Yes Information not available 07/22/2024 What Was The Date Of Your Most Recent Tobacco Screening? 06/11/2025 [email or web address] Information not available 06/11/2025 What Is Your Current Pack Years? 20-29packyear s [email or web address] Information not available 10/09/2023 Do You Have Difficulty Walking Or Climbing Stairs? No [email or web address] Information not available 10/09/2023 Do You Have [...] independently without assistance or assistive devices? YESWOREST [email or web address] Information not available 10/09/2023 Do you have difficulty doing errands alone? No [email or web address] Information not available 10/09/2023 Are you able to care for yourself independently? Yes [email or web address] Information not available 10/09/2023 Do you have difficulty dressing, bathing, grooming, or toileting? No [email or web address] Information not available 10/09/2023 Mental Status Question Answer Note LastModified by Organization D etails LastModified Time Do you have difficulty concentrating, remembering or making decisions? No [email or web address] Information no t available 10/09/2023 Family History [...] Details Recorded Time zoster recombinant 3 completed PETE [facility] 07/16/2023 08:58:36 COVID-19, mRNA, LNP-S, PF, 30 mcg/0.3 mL dose 2 completed [facility] 07/16/2023 08:58:37 COVID-19, mRNA, LNP-S, PF, 30 mcg/0.3 mL dose 1 completed [facility] 07/16/2023 08:58:37 COVID-19, mRNA, LNP-S, PF, 30 mcg/0.3 mL dose 1 completed [facility] 07/16/2023 08:58:37 COVID-19, mRNA, LNP-S, PF, 30 mcg/0.3 mL dose 2 completed [facility] 07/16/2023 08:58:37 Pneumococcal conjugate PCV20, polysaccharide KWT325 conjugate, adjuvant, PF 3 completed [facility] 07/16/2023 08:58:37 COVID-19, mRNA, LNP-S, bivalent, PF, 30 mcg/0.3 mL dose 2 completed [facility] 07/16/2023 08:58:37 Tdap 3 completed [facility] 07/16/2023 08:58:37 Influenza, high-dose, trivalent, PF 0 completed [facility] 07/16/2023 08:58:37 Influenza, split virus, trivalent, preservative 2 completed [facility] 07/16/2023 08:58:37 Td (adult), 2 Lf tetanus toxoid, preservative free, adsorbed 5 completed TAMATHA GREEN null, [facility] 07/16/2023 08:58:37 tetanus toxoid, adsorbed 4 [facility], [facility] 07/16/2023 08:58:37 zoster recombinant 3 completed [facility] 03/21/2024 14:13:57 Influenza, split virus, trivalent, preservative 3 completed Arelis jose, [facility] 03/21/2024 14:13:57 COVID-19, mRNA, LNP-S, PF, 50 mcg/0.5 mL 4 completed Not Available [facility] 06/16/2025 09:21:51 Influenza, split virus, trivalent, PF 4 completed Not Available [facility] 06/16/2025 09:21:51 COVID-19, mRNA, LNP-S, PF, jarvis-sucrose, 30 mcg/0.3 mL 4 completed Not Available [facility] 06/16/2025 09:21:51 Hep B, adult 5 completed Not Available [facility] 06/16/2025 09:21:51 MMR 5 completed Not Available [facility] 06/16/2025 09:21:51 Hep B, adult 5 completed Not Available [facility] 06/16/2025 09:21:51 Influenza, split virus, trivalent, PF 5 completed Not Available [facility] 06/16/2025 09:21:51 Td(adult) unspecified formulation 2 completed JOAN jose [facility] 07/16/2023 08:58:37 Influenza, split virus, trivalent, preservative 7 completed JOAN jose [facility] 07/16/2023 08:58:37 Influenza, split virus, trivalent, preservative 6 completed LUCIODIVYAJaron ZAVALA [facility] 07/16/2023 08:58:37 Past Encounters Encounter ID Performer Location Encounter Start Date Encounter Closed Date Diagnosis/Indication Diagnosis SNOMED-CT Code Diagnosis ICD10 Code Diagnosis IMO Codes Diagnosis Note [id number] NICKI SETHI [facility] ([facility]) [address] [place] [address] 32508-015 5 01/30/2023 10:31:16 01/30/2023 11:40:40 Laceration of left elbow 0504760410 [id number] S51.012A Start keflex BID and mupirocin TID today. Patient states he us UTD on tetanus vaccine. Encouraged to keep area clean and covered while healing. Patient declined x-ray today. Due to swelling and tenderness , discussed with patient that if the swelling and pain do not improve with antibiotic s, he should return for probable x-ray. Patient verbalized understand ing. [id number] JAMAL BYRD [facility] ([facility]) [address] [place] [address] 50393-837 5 05/23/2023 09:52:16 05/23/2023 13:22:11 Palpitations 70323616 R00.2 Acute bact erial sinusitis 23010875 J01.90 secondary to COVID 19 virus 3 weeks ago. Left anter ior fascicular block 43342463 I44.4 Post-acute COVID-19 1119 959136 U09.9 3 weeks ago. Tx with Paxlovid by Nephrologi [id number] Jhony Kaur DO [facility] ([facility]) [address] [place] [address] 27705-282 5 05/29/2023 10:22:27 05/29/2023 14:18:43 Supraventricular tachycardia 0589041 I47.10 [id number] Jhony Kaur DO [facility] ([facility]) [address] [place] [address] 21535-618 5 06/13/2023 08:25:31 06/13/2023 10:08:17 History of renal transplant 263806622 Z48.[address] luis miguel hopkins Long-term drug therapy 850957357 Z79.372 [id number] Jhony Kaur DO [facility]) [address] [place] [address] 5 07/02/2023 08:21:32 07/03/2023 14:58:54 History of renal transplant 520350057 Z48.[address] luis miguel hopkins [id number] Jhony Kaur DO [facility]) [address] [place], [place] [address] 5 07/08/2023 09:35:50 07/17/2023 08:15:07 History of renal transplant 420472575 Z48.[address] luis miguel hopkins [id number] Jhony Kaur DO [facility]) [address] [place] [address] 5 07/15/2023 08:48:18 07/15/2023 15:45:38 Disorder of transplanted kidney 81456614 T86.10 History of renal transplant 819335359 Z48.[address] luis miguel hopkins [id number] Manuel Calle MD [facility]) [address] [place] [address] 5 07/16/2023 08:49:47 07/16/2023 09:28:07 Acute upper respiratory infection 69807038 J06.9 Rhinitis 73251149 J00 [id number] Jhony Kaur DO [facility]) [address] [place] [address] 5 07/23/2023 08:37:10 07/24/2023 09:57:56 History of renal transplant 873539788 Z48.[address] luis miguel hopkins/ will fax results YF [id number] Jhony Kaur DO [facility]) [address] [place], [place] [address] 5 08/12/2023 09:06:00 08/12/2023 11:13:11 History of renal transplant 476852378 Z48.[address] luis miguel hopkins/ will fax results YF [id number] Jhony Kaur DO [facility] ([facility]) [address] [place] [address] [phone] 5 08/21/2023 08:40:07 08/22/2023 13:25:59 History of renal transplant 231059916 Z48.[address] luis miguel hopkins/ will fax results YF [id number] German Sorto MD [facility] ([facility]) [address] [place] [address] 13835-915 5 08/29/2023 17:19:07 08/31/2023 07:50:11 Cough 87599326 R05.9 Acute bronchitis 4304042 2 J20.9 Potentiall y viral illness, however given his underlying health issues we will go ahead and proceed with antibiotic s. [id number] Jhony Kaur DO [facility] ([facility]) [address] [place] [address] 17940-611 5 09/04/2023 08:20:08 09/05/2023 11:23:19 History of renal transplant 015588290 Z48.[address] luis miguel hopkins/ will fax results YF At [facility] ed risk of urinary tract infection 434775944 Z91.89 [id number] Jhony Kaur DO [facility] ([facility]) [address] [place] [address] 64600-404 5 09/17/2023 08:11:27 09/17/2023 09:35:26 History of renal transplant 556297080 Z48.[address] luis miguel hopkins/ will fax results YF At [facility] ed risk of urinary tract infection 326241614 Z91.89 [id number] Jhony Kaur DO [facility] ([facility]) [address] [place] [address] 60853-883 5 10/08/2023 08:25:37 10/08/2023 09:05:36 History of renal transplant 307428475 Z48.[address] luis miguel hopkins/ will fax results YF At [facility] ed risk of urinary tract infection 457929469 Z91.[address] luis miguel hopkins/ will fax results YF [id number] Jhony Kaur DO [facility] ([facility]) [address] [place] [address] 75718-714 5 10/09/2023 08:52:25 10/09/2023 09:21:04 Supraventricular tachycardia 7542825 I47.10 Essential hypertension 55502037 I10 Active or passive immunization 530348476 Z23 Adult heal th examination 324391681 Z00.01 [id number] Jhony Kaur DO [facility] ([facility]) [address] [place], [place] [address] 5 11/05/2023 12:20:19 11/06/2023 09:50:19 At increased risk of urinary tract infection 760966098 Z91.[address] luis miguel hopkins/ will fax results YF History of renal transplant 266847550 Z48.[address] luis miguel hopkins/ will fax results YF [id number] JAMAL WESTON [facility] ([facility]) [address] [place], [place] [address] 5 12/11/2023 08:23:31 12/11/2023 08:56:04 Abdominal pain 78417663 R10.9 Due to pt's medical surgical history, more severe pain on exam today, pt is asked to f/u in ER now for imaging and work up. Spouse is with the patient and will transport. [id number] Jhony Kaur DO [facility] ([facility]) [address] [place] [address] 13953-565 5 12/19/2023 09:34:59 12/19/2023 10:34:34 History of renal transplant 671882539 Z48.[address] luis miguel hopkins/ will fax results JS At [facility] ed risk of urinary tract infection 002491086 Z91.[address] luis miguel hopkins/ will fax results YF [id number] Jhony Kaur DO [facility] ([facility]) [address] [place] [address] 04724-889 5 01/01/2024 08:34:53 01/01/2024 10:00:24 History of renal transplant 675787949 Z48.[address] luis miguel hopkins/ will fax results yf At [facility] ed risk of urinary tract infection 195867013 Z91.[address] luis miguel hopkins/ will fax results YF Diarrhea 48885249 R19.7 [id number] Jhony Kaur DO [facility] ([facility]) [address] [place] [address] 01/01/2024 08:51:55 01/01/2024 09:34:16 Abdominal pain 18216055 R10.9 Infectious colitis 57801 005 A09 [id number] Jhony Kaur DO [facility] ([facility]) [address] [place] [address] 54488-086 5 02/05/2024 09:08:04 02/06/2024 09:22:14 At increased risk of urinary tract infection 197434073 Z91.[address] luis miguel hopkins/ will fax results YF Long-term drug therapy 218985926 Z79.899 History of renal transplant 010464260 Z94.[address] luis miguel hopkins/ will fax results yf [id number] Jhony Kaur DO [facility] ([facility]) [address] [place] [address] 53019-890 5 02/10/2024 09:16:04 02/10/2024 09:49:09 Essential hypertension 43610406 I10 Sleep apnea 91676491 G47 .30 History of renal dialysis 391165548 Z98.890 Supraventr icular tachycardia 7492206 I47.10 Major depr essive disorder 150048570 F32.9 [id number] Jhony Kaur DO [facility] ([facility]) [address] [place] [address] 37329-991 5 03/11/2024 10:19:06 03/11/2024 11:00:01 Nodule of liver 352141569 K76.9 Metabolic acidosis 50529 009 E87.20 Hyperkalemia 59481978 E8 7.5 Diarrhea 19312777 R19.7 Fever 750699773 R50.9 Paroxysmal atrial fibrillation 334084512 I48.0 [id number] Jhony Kaur DO [facility] ([facility]) [address] [place] [address] 09596-589 5 03/16/2024 09:48:12 03/17/2024 11:50:36 At increased risk of urinary tract infection 617798087 Z91.[address] luis miguel hopkins/ will fax results YF History of renal transplant 287730251 Z94.[address] luis miguel hopkins/ will fax results yf [id number] Jhony Kaur DO [facility] ([facility]) [address] [place] [address] 5 03/25/2024 08:33:44 03/25/2024 09:11:37 History of renal transplant 689979053 Z48.[address] luis miguel hopkins/ will fax results yf At [facility] ed risk of urinary tract infection 753201168 Z91.[address] luis miguel hopkins/ will fax results YF [id number] Jhony Kaur DO [facility]) [address] [place] [address] 5 04/01/2024 09:59:04 04/01/2024 10:43:24 Hospital inpatient stay within past 30 days 0196145954 106 Z76.89 Metabolic acidosis 71576 009 E87.20 Acute kidney injury 1466 9001 N17.9 Focal segm ental glomerulosclerosis 418571079 N26.9 [id number] Jhony Kaur DO [facility]) [address] [place] [address] 5 04/06/2024 09:34:20 04/07/2024 09:24:05 History of renal transplant 298461068 Z48.[address] luis miguel hopkins/ will fax results yf At [facility] ed risk of urinary tract infection 381654863 Z91.[address] luis miguel hopkins/ will fax results YF [id number] Jhony Kaur DO [facility] ([facility]) [address] [place] [address] 5 04/13/2024 08:03:54 04/13/2024 08:27:10 History of renal transplant 004042728 Z48.[address] luis miguel hopkins/ will fax results yf At [facility] ed risk of urinary tract infection 206320122 Z91.[address] luis miguel hopkins/ will fax results YF [id number] Jhony Kaur DO [facility] ([facility]) [address] [place], [place] [address] 5 04/20/2024 09:41:00 04/21/2024 09:55:51 History of renal transplant 954689121 Z48.[address] luis miguel hopkins/ will fax results yf [id number] Jhony Kaur DO [facility] ([facility]) [address] [place], [place] [address] 5 04/28/2024 09:12:16 04/29/2024 12:51:57 Long-term drug therapy 467562794 Z79.899 History of renal transplant 017649452 Z48.[address] luis miguel hopkins/ will fax results yf At [facility] ed risk of urinary tract infection 299759442 Z91.[address] luis miguel hopkins/ will fax results YF [id number] Jhony Kaur DO [facility] ([facility]) [address] [place] [address] 92500-942 5 2024 09:06:44 05/05/2024 12:08:37 History of renal transplant 442167093 Z48.[address] luis miguel hopkins/ will fax [facility] 867491400 Z91.[address] luis miguel hopkins/ will fax results YF [id number] Jhony Kaur DO [facility] ([facility]) [address] [place] [address] 77644-120 5 05/12/2024 09:33:58 05/13/2024 10:57:48 History of renal transplant 554048007 Z48.[address] luis miguel hopkins/ will fax results y[facility] of [facility] infection 355029628 Z91.[address] luis miguel hopkins/ will fax results YF [id number] [facility] ([facility]) [address] [place] [address] 12932-533 5 06/04/2024 14:28:35 06/04/2024 18:00:42 Essential hypertension 79182690 I10 Focal segm ental glomerulosclerosis 822730242 N26.9 Multiple n odules of lung 479362148 R91.8 Hospital i npatient stay within past 30 days 5886518208 106 Z76.89 med records reviewed. meds reconciled . restarted Losartan today at lower dose.retur n to office if worsening s/s any fever or change in status. [id number] Jhony Kaur DO [facility] ([facility]) [address] [place] [address] 5 06/15/2024 09:18:46 06/15/2024 09:55:14 Muscle weakness 06320544 M62.81 Nodule of lung 886633272 R91.1 [id number] Jhony Kaur DO [facility] ([facility]) [address] [place] [address] 5 06/17/2024 08:56:07 06/18/2024 10:17:05 Anemia 046058674 D64.9 History of renal transplant [id number] Z48.[address] luis miguel hopkins/ will fax results yf [id number] Jhony Kaur DO [facility] ([facility]) [address] [place] [address] 5 07/14/2024 08:17:57 07/15/2024 10:58:55 History of renal transplant 370407443 Z48.[address] luis miguel hopkins Long-term drug therapy 877826357 Z79.882 [id number] German Sorto MD [facility] ([facility]) [address] [place] [address] 50912-532 5 07/22/2024 12:13:24 07/22/2024 13:55:53 Supraventricular tachycardia 5388764 I47.10 The patient's current SVT. Discussed interventi ons to do at home if symptoms do arise. Reinforced when to seek emergent care. No medication changes at this time. Follow-up with specialist as scheduled. [id number] JAMAL RUIZ [facility] ([facility]) [address] [place], [place] [address] 5 08/02/2024 15:04:38 08/02/2024 16:36:07 Viral upper respiratory tract infection 740478476 J06.9 [id number] German Sorto MD [facility] ([facility]) [address] [place] [address] 36534-139 5 08/07/2024 09:09:44 08/10/2024 11:44:48 History of renal transplant 906326072 Z48.22 [id number] German Sorto MD [facility] ([facility]) [address] [place] [address] 50352-871 5 08/24/2024 09:43:16 08/25/2024 10:54:57 History of renal transplant 864396169 Z48.22 [id number] German Sorto MD [facility] ([facility]) [address] [place] [address] 99661-792 5 09/15/2024 08:42:37 09/16/2024 10:49:14 History of renal transplant 433243321 Z48.22 [id number] German Sorto MD [facility] ([facility]) [address] [place] [address] 94969-138 5 09/25/2024 09:45:43 09/25/2024 10:41:04 At high risk for fall 0589091719 79139116 Z91.89 Encouraged patient to continue to use an assistive device for ambulating . Chronic low back pain 27 9794291 M54.50 Continue pain management . Lumbar radiculopathy 128 473380 M54.16 The patient does have significan t evidence of radiculopa thy. The patient has had some neurologic al changes including diminished reflexes and changes in his strength not for left extremity. Risks is suggestive of significan t nerve impingemen t. Recommend MRI for further evaluation . The patient is wanting to proceed with interventi on to help with his underlying issues. [id number] Storm Whaley DO [facility] ([facility]) [address] [place] [address] 13542-630 5 10/19/2024 09:18:56 10/19/2024 10:13:01 Fever 439106430 R50.9 Influenza caused by Influenza A virus 142373855 J09.X2 I counseled on + rapid flu test today as above. counseled on dx, treatment options, expectatio ns. pt is high risk, will send in tamiflu. pt to rest, increase fluids, nsaids prn, daily vitamins. stay home until fever free for 24-48hrs with improved symptoms. Return to office with no improvemen t or any problems. Go to ER with severe worsening or severe problems. [id number] German Sorto MD [facility] ([facility]) [address] [place] [address] 90566-302 5 10/23/2024 09:00:43 10/26/2024 12:49:29 History of renal transplant 314392343 Z48.22 [id number] German Sorto MD [facility] ([facility]) [address] [place] [address] 71140-949 5 11/09/2024 09:25:12 11/09/2024 12:44:59 History of renal transplant 873595029 Z94.0 [id number] German Sorto MD [facility] ([facility]) [address] [place] [address] 58329-297 5 11/18/2024 09:28:11 11/18/2024 10:26:42 Cervical radiculopathy 00458680 M54.12 Will start with x-rays of his cervical spine and have the radiology over read them. Lumbar radiculopathy 128 391846 M54.16 Spinal munir nosis of lumbosacral region 984064829 M48.07 Reviewed MRI results with the patient and the patient would like to proceed with neurosurge ry referral at this time. Active or passive immunization 107781850 Z23 Check hepatitis B immunity to determine need for hep B vaccine Anxiety 67370741 F41.9 Will increase duloxetine to 90 mg daily. Allergic rhinitis 008780 04 J30.9 Patient examined uncontroll ed allergy symptoms and eustachian tube dysfunctio n. This is likely contributi ng to his dizziness. Restart Flonase continue ipratropiu m nasal spray. [id number] German Sorto MD [facility] ([facility]) [address] [place] [address] 13118-126 5 12/14/2024 09:06:56 12/15/2024 10:03:56 History of renal transplant 851569567 Z48.22 4310705 [id number] German Sorto MD [facility] ([facility]) [address] [place] [address] 5 12/23/2024 09:29:39 12/23/2024 14:01:52 Anxiety 95877606 F41.9 Continue current medication s. Chronic low back pain 27 8470033 M54.50 Pain management referral was sent on the . Continue follow-up with neurosurge ry. Essential hypertension 48588942 I10 Initial with current medication s. Focal segm ental glomerulosclerosis 379026679 N26.9 History of renal transplant 371410185 Z48.22 Continue to follow-up with specialist sJarrod [id number] German Sorto MD [facility] ([facility]) [address] [place] [address] 5 01/15/2025 10:11:51 01/19/2025 09:50:05 History of renal transplant 377784861 Z48.22 Continue to follow-up with specialist s. [id number] German Sorto MD [facility] ([facility]) [address] [place] [address] 5 02/08/2025 09:38:17 02/09/2025 09:44:50 History of renal transplant 174921425 Z48.22 Continue to follow-up with specialist sJarrod [id number] German Sorto MD [facility]) [address] [place] [address] 5 03/02/2025 08:38:22 03/03/2025 10:40:29 History of renal transplant 810647495 Z48.22 Continue to follow-up with specialist sJarrod [id number] German Sorto MD [facility] ([facility]) [address] [place] [address] 5 03/03/2025 17:11:33 03/08/2025 12:39:39 History of renal transplant 491653586 Z48.22 Continue to follow-up with specialist s. Paroxysmal atrial fibrillation 548826502 I48.0 Patient has been taken off his Eliquis Essential hypertension 86451058 I10 Patient is monitoring his blood pressure closely and has instructio ns on how to manage it. [id number] German Sorto MD [facility] ([facility]) [address] [place], [place] [address] 5 03/08/2025 10:18:45 03/09/2025 10:21:24 History of renal transplant 360538812 Z48.22 Continue to follow-up with specialist s. [id number] German Sorto MD [facility] ([facility]) [address] [place] [address] 71238-317 5 03/18/2025 08:18:43 03/19/2025 17:53:46 History of renal transplant 449050584 Z48.22 Continue to follow-up with specialist s. [id number] German Sorot MD [facility] ([facility]) [address] [place], [place] [address]-204 5 03/23/2025 09:31:08 03/24/2025 12:23:58 History of renal transplant 208115787 Z48.22 Continue to follow-up with specialist s. [id number] German Sorto MD [facility] ([facility]) [address] [place] [address] 09205-149 5 03/29/2025 09:07:23 03/29/2025 10:21:04 Hyperglycemia 39261776 R73.9 76173 Patient is likely having issues with elevated blood sugar can David to steroids. To keep an eye on his sugars. History of renal transplant 527209964 Z48.22 Continue to follow-up with specialist s. Essential hypertension 55422518 I10 Patient is monitoring his blood pressure closely and has instructio ns on how to manage it. Cellulitis of right upper limb 2016083885 0954007 L03.389 4030643 Doing better after treatment Chronic low back pain 27 2758839 M54.50 Continue follow-up with pain management [id number] German Sorto MD [facility] ([facility]) [address] [place] [address] 22595-347 5 03/31/2025 08:38:33 04/02/2025 11:52:14 History of renal transplant 681823283 Z48.22 Continue to follow-up with specialist s. Long-term current use of drug therapy 798815539 Z79.899 92899125 [id number] German Sorto MD [facility] ([facility]) [address] [place] [address] 96885-402 5 04/02/2025 09:29:51 04/05/2025 11:11:18 History of renal transplant 467450509 Z48.22 Continue to follow-up with specialist s. [id number] German Sorto MD [facility]) [address] [place] [address] 34240-023 5 04/12/2025 09:20:19 04/13/2025 12:04:30 Long-term current use of drug therapy 005562705 Z79.601 [id number] History of renal transplant 348703109 Z48.22 [id number] Continue to follow-up with specialist s. [id number] JAMAL WESTON [facility]) [address] [place] [address] 32018-245 5 04/15/2025 10:22:39 04/15/2025 14:24:51 Fever with chills 996559827 R50.9 97154 Labs drawn a couple days ago and faxed to transplant team in . WBC was elevated. Recently discharged from hospital. Transplant team advised for blood cx's to be drawn. VSS. Labs ordered. Will f/u with PCP and transplant team [id number] German Sorto MD [facility]) [address] [place] [address] 89547-861 5 04/28/2025 09:24:57 04/29/2025 12:29:03 History of renal transplant 640541692 Z48.22 [id number] Continue to follow-up with specialist s. [id number] German Sorto MD [facility] ([facility]) [address] [place], [place] [phone] 5 2025 09:11:05 2025 09:59:37 Low blood pressure 25176299 I95.9 08447407 During the exam the patient was not very symptomati c but has been symptomati c in the past. Encouraged the patient and family to monitor blood pressure, symptoms, and mental status. If any significan t changes happen then the ER visit would be warranted. Focal segm ental glomerulosclerosis 684850319 N26.9 Continue follow-up with specialist and plasmapher esis [id number] German Sorto MD [facility] ([facility]) [address] [place] [address] 56797-409 5 05/26/2025 09:21:56 05/27/2025 10:29:20 History of renal transplant 013167114 Z48.22 [id number] Continue to follow-up with specialist s. [id number] German Sorto MD [facility] ([facility]) [address] [place] [phone] 05/26/2025 10:10:04 05/26/2025 11:13:28 Essential hypertension 25032409 I10 - Continue monitoring blood pressure at home. - Persist with metoprolol as the sole antihypert ensive. History of renal transplant [id number] Z48.22 - Plan a follow-up with nephrology through a video consult. Focal segm ental glomerulosclerosis [id number] N26.9 - Adhere to regular specialty follow-ups and plasmapher esis. 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 Orthostati c hypotension 23611376 I95.1 - Educate on symptom management with postural modificati ons. Tear of skin 703873408 S 51.019A - Maintain wound care; monitor for infection. Asthenia 14194308 R53.1 52307 The patient does have significan t weakness post hospitaliz ation. The patient would benefit from physical therapy evaluation and treatment to help build up strength and improve stability. The patient is currently home bound so we will proceed with referral to home health to provide theses services. [id number] German Sorto MD [facility] ([facility]) [address] [place] [phone] 06/04/2025 09:48:07 06/07/2025 09:09:27 History of renal transplant [id number] Z48.22 - Plan a follow-up with nephrology through a video consult. [id number] FRIDA HERNANDEZ APRN [facility] ([facility]) [address] [place] [address] [place] [address] 06/11/2025 09:38:50 06/14/2025 15:05:40 Pain in throat [id number] J02.9 14139 Candidiasis of mouth 797 74217 B37.0 862032 [id number] German Sorto MD [facility] ([facility]) [address] [place] [address] 06/16/2025 09:02:37 06/17/2025 11:20:09 History of renal transplant [id number] Z48.22 - Plan a follow-up with nephrology through a video consult. Diarrhea o f presumed infectious origin 81929216 R19.7 63659 [id number] German Sorto MD [facility] ([facility]) [address] [place] [address] 06/16/2025 09:15:11 06/16/2025 10:07:59 Insomnia 429379694 G47.00 [id number] - Mirtazapin e prescribed for sleep, noted prior sleep aid complicati ons. Altered mental status 41 7589461 R41.82 - Labs ordered to assess potential underlying issues; follow up planned for further neurologic evaluation . At [facility] ed risk for falls 234698923 Z91.81 [id number] - Advised on consistent walker use and safety strategies . History of renal transplant [id number] Z48.22 - Monitoring with lab evaluation , gwen mitchell transplant history. Health Concerns Section Related Observation LastModified by Organization Detai ls LastModified Time None Recorded Concern Status LastModified by Organization Details LastModified Time None Recorded Advance Directives Directive None Recorded Payers Insurance Date Sequence Insurance Name Policy Number Policy Jose Covered Member ID Jose Member ID Guarantor Name 06/17/2025 1 [employer] [id number] 1 Leslee Mccabe [id number] Mark Mccabe 06/17/2025 2 [employer] (MEDICARE REPLACEMENT/ ADVANTAGE - HMO) Mark Mccabe [id number] Mark Mccabe 09/25/2024 2 [employer] (PPO) [id number] Leslee Mccabe [id number] Mark Mccabe Notes Date Note Type Note Provider Name and Address Organization Details Recorded Time 05/26/2025 text/html The patient is a 60-year-old male presenting with a follow-up on his recent hospitalization for issues related to hypotension and associated complications. The patient had a hospital stay initially in [place] for approximately one week, followed by two weeks in [place]. During the hospitalization, a spontaneous hematoma was observed, and adjustments in medication managed to stabilize his blood pressure. 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 Additionally, there are concerns about his persistent orthostatic hypotension and general fatigue post-hospitalization, and he suffered a significant skin tear recently due to a fall, for which wound care is ongoing. - Labs: Elevated CMV count of 39,400, target should be under 500 German Sorto MD [address] [place] [address], [phone], [facility] 05/26/2025 11:33:12 06/11/2025 text/html walk in [facility] has a sore throat, cough and runny nose. PT had thrush for weeks and just got over that a couple weeks ago. FRIDA HERNANDEZ APRN [address] [place] [address], [phone], [facility] 06/12/2025 08:12:09 06/16/2025 text/html The patient is a 60-year-old [...] infection and kidney function. German Sorto MD [address] [place] [address], [phone], [facility] 06/16/2025 10:22:27
--- OUTSIDE RECORDS SUMMARY | 2025-06-22 19:25 | XMS_ITS | Encounter Summary ---
Author Organization [facility] Address [address] [place] [address] Care Team Providers Care Line Appliance Assembler Name Role Phone Unavailable Primary Care Provider Unavailabl e Encounter Details Date Type Department Care Team (Late st Contact Info) Description 03/02/2024 Lab Requisition [facility] [address] [place] [phone] [facility], External Provider [address] [place] [address] Social History Tobacco Use Types Packs/Day Years Used Date Smoking Tobacco: Never Assessed Sex and Gender Information Value Date Recorded Sex Assigned at Not on file 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 CLIA # [id number] [address] [place], [place] [id number] documented in this encounter Visit Diagnoses Not on filedocumented in this encounter
--- OUTSIDE RECORDS SUMMARY | 2025-06-22 19:25 | XMS_ITS | Encounter Summary ---
Author Organization [facility] Address [address] [place] [address] Care Team Providers Care Supervisor Public Health Nursing Name Role Phone Unavailable Primary Care Provider Unavailabl e Encounter Details Date Type Department Care Team (Latest Contact Info) Description 06/16/2004 Outpatient Historical [facility] [address] 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
--- OUTSIDE RECORDS SUMMARY | 2025-06-22 19:25 | XMS_ITS | Encounter Summary ---
Author Organization [facility] Address 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 Gender Identity Not on file Sexual Orientation Not on file documented as of this encounter Plan of Treatment Not on file documented as of this encounter Procedures Procedure Name Priority Date/Time Associated Diagnosis Comments OSMOLALITY Stat 03/03/2024 1:30 AM CDT documented in this encounter Results * OSMOLALITY (03/03/2024 1:30 AM CDT) OSMOLALITY 281 275 - 295 mOsm/kg 03/03/2024 3:43 AM CDT [facility] Blood Collection / Unknown 03/03/2024 1:30 AM CDT 03/03/2024 3:20 AM CDT us External Provider [facility] CHEMISTRY ORDERABLES Final Result [facility] CLIA # [id number] [address] [address] documented in this encounter Visit Diagnoses Not on filedocumented in this encounter
--- OUTSIDE RECORDS SUMMARY | 2025-06-22 19:25 | XMS_ITS | Encounter Summary ---
Author Organization [facility] Address [address] [place] [address] Care Team Providers Care Senior Site Manager Name Role Phone Unavailable Primary Care Provider Unavailabl e Encounter Details Date Type Department Care Team (Late st Contact Info) Description 2004 Outpatient Historical [facility] [address] 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
--- OUTSIDE RECORDS SUMMARY | 2025-06-22 19:25 | XMS_ITS | Encounter Summary ---
Author Organization [facility] Address [address] [place] [address] Care Team Providers Care Dental Assistant Name Role Phone Unavailable Primary Care Provider Unavailabl e Encounter Details Date Type Department Care Team (Latest Contact Info) Description 2003 Outpatient Historical [facility] General Surgery [address] [address] [address] [place] [phone] [place] [address] [facility] [address] [place] [id number] ABDOMINAL PAIN OTHER SPEC SITE (Primary Dx) Social History Tobacco Use Types Packs/Day Years Used Date Smoking Tobacco: Never Assessed Sex and Gender Information Value Date Recorded Sex Assigned at Not on file 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
--- OUTSIDE RECORDS SUMMARY | 2025-06-22 19:25 | XMS_ITS | Encounter Summary ---
Author Organization [facility] Address [address] [place] [address] Care Team Providers Care Pinion Polisher Name Role Phone Unavailable Primary Care Provider Unavailabl e Encounter Details Date Type Department Care Team (Latest Contact Info) Description 06/16/2004 Outpatient Historical [facility] [address] [address] [facility] [address] [place] [address] Alejandro Guevara MD [address] [facility] [address] [place] [phone] CERVICALGIA (Primary Dx) Social History Tobacco Use Types Packs/Day Years Used Date Smoking Tobacco: Never Assessed Sex and Gender Information Value Date Recorded Sex Assigned at Not on file 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
--- OUTSIDE RECORDS SUMMARY | 2025-06-22 19:25 | XMS_ITS | Encounter Summary ---
Author Organization [facility] Address [address] [place] [address] Care Team Providers Care Senior Environmental Technician Name Role Phone Unavailable Primary Care Provider Unavailabl e Encounter Details Date Type Department Care Team (Late st Contact Info) Description 2004 Outpatient Historical [facility] [address] [address] [place] [address] [facility] [address] [place], [place] [phone] JOINT PAIN-MULT JTS (Primary Dx) Social History Tobacco Use Types Packs/Day Years Used Date Smoking Tobacco: Never Assessed Sex and Gender Information Value Date Recorded Sex Assigned at Not on file 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
--- OUTSIDE RECORDS SUMMARY | 2025-06-22 19:25 | XMS_ITS | Continuity of Care Document ---
Author Organization PETE - Orestes Begum [facility], LJarrodLЕкатерина, [facility] ([facility]) Address [address] [place] [address] Care Team Providers Care Center Receptionist Name Role Phone GERMAN SORTO Primary Care Provider Assessment Encounter Date Assessment Date Assessment LastModified [...] Not available Not available Not available Lab None recorded. Referral None recorded. Procedures None recorded. Surgeries None recorded. Imaging None recorded. Medication Orders mirtazapi ne 15 mg tablet 2024 025 [facility] [place], [address] [place], [address], 06/16/2025 10:23:31 Patient TargetsNo targets recorded. Patient Instructions Encounter Date Encounter Id Patient Instructions Last Modified By Organization Details Last Modified Time 06/16/2025 [id number] - Take Mirtazapi ne as directed at bedtime. - Use your walker at all times to minimize fall risk. - Monitor for any signs of infection such as fever or burning with urination. - Attend follow-up appointments in [place] as scheduled. - Report any new or [...] of follow-up care, including consultations with his diagnostic sales specialist and necessary coordination prior to his appointments in [place]. The plan addresses both immediate concerns and long-term health maintenance strategies. [id number] Not available 06/16/2025 10:03:26 Reason for Referral None Reported. Problems Name Problem SNOMED Code Status Onset Date Resolution Date Notes Provider Name and Address Organization Details Recorded Time Human metapneu movirus infectio n 48949174893 18575 Active Harika jose [facility] 14:01:46 History of renal transpla nt 004663836 Active German Sorto MD [address] [place] [address], [address] , [facility] 5 09:56:07 Neutrope vane 885784339 Completed 11/16/2024 Harika jose [facility] 5 14:03:40 Osteonec rosis of head of humerus 791613169 Active Harika jose [facility] 14:04:17 Abdomina l pain 43040723 Completed 11/16/2024 Harika jose [facility] 13:52:38 Axonal sensorim otor neuropat 932482498 Completed 12/20/2024 Removal Reason: Chad jose, [facility] 5 11:57:58 Gastroes ophageal reflux disease 485421068 Active Harika jose, [facility] 5 13:57:58 Focal segmenta l cheyanne pugh is 046856508 Active German Sorto MD [address] [place] [address], [address] , [facility] 10:54:47 Headache 90712399 Completed 11/16/2024 Harika jose, [facility] 13:58:29 Dialysis finding 199319595 Completed 11/16/2024 Removal Reason: Chad jose, [facility] 13:56:50 Anemia 718155567 Active Harika jose, [facility] 5 13:54:40 Spondylo listhesi s 475705764 Completed 12/20/2024 Removal Reason: Chad jose, [facility] 12:00:17 Thromboc ytopenic disorder 624336824 Completed 11/16/2024 Harikajb jose, [facility] 5 14:08:32 Arthriti s 5866194 Active Harika Swanson null, [facility] 5 13:54:53 Immunosu ppressio n 15019884 Active Harika Swanson null, [facility] 5 14:02:43 Hypoxemi a 850566340 Completed 11/16/2024 Harika jose, [facility] 5 14:02:24 Altered mental status 039952704 Active Harika jose, [facility] 5 13:53:51 Disorder of the peripher al nervous system 23739619 Active Harika jose, [facility] 5 13:57:28 History of polyp of colon 920312815 Completed 11/16/2024 Harika jose [facility] 5 13:58:53 End-stag e renal disease 82900578 Completed 12/23/2024 history German Sorto MD [address] [place] [address], [address] , [facility] 5 09:56:16 Hypocalc emia 3325497 Completed 11/16/2024 Harika Sky rebeca [facility] 5 14:02:16 Carpal tunnel syndrome 21345109 Active Harika jose [facility] 5 14:06:24 Paroxysm al supraven tricular tachycar gurdeep 71273529 Completed 11/16/2024 Harika jose [facility] 5 14:09:03 Pulmonar y hyperten johnny in systemic disorder 855416139 Active Harika Swanson rebeca [facility] 5 14:06:17 Acidemia 83231533 Completed 11/16/2024 Harika Sky rebeca [facility] 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 5 11:48:35 Palpitat ions 82498527 Completed 11/16/2024 Harika jose [facility] 5 14:04:11 Leukopen ia 69791131 Completed 11/16/2024 Harika jose [facility] 5 14:03:06 Paresthe sebastian 07165874 Completed 11/16/2024 Harika jose [facility] 5 14:06:41 Low back pain 220266666 Completed 201610/16/2016 Low Back Pain - Status is Inactive ; 10/16/19 17 8:14AM by Sheri Reyna RN, Annotati on/Adden dum; Promoted ; acuity set as *; Not Available [facility] 3 03:16:32 Contact dermatit is 29611922 Completed 201610/16/2016 Eczema - Status is Inactive ; 10/16/19 17 8:14AM by Sheri Reyna RN, Annotati on/Adden dum; Promoted ; acuity set as *; Not Available [facility] 3 03:16:40 Chronic pain 20454817 Completed 202112/20/2024 Chronic Pain; Dr Flanagan Removal Reason: Chad jose [facility] 5 11:57:14 History of renal dialysis 713173852 Completed 202112/23/2024 Dialysis ; On M,W & F dr salter, nephrolo [facility]. Dr Salter , [facility] German Sorto MD [address] [place] [address], [phone] , [facility] 5 09:56:22 Sleep apnea 81235422 Completed 202111/16/2024 Sleep Apnea; BiPAP machine; Severe Removal Reason: Chad jose [facility]CJ[facility]rod 5 14:09:34 Hyperten sive disorder 93919336 Completed 202112/20/2024 HYPERTEN JOHNNY - BENIGN HYPERTEN JOHNNY; Impressi on: right now his amlodipi ne is held due to normal BP in the hospital . 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 278764602 Active 2021 HYPERCHO LESTEROL EMIA - HYPERCHO LESTEROL EMIA - Status is Inactive Harika jose [facility]rod 5 13:57:43 Irritabl e bowel syndrome 84322424 Active 2021 IRRITABL E BOWEL SYNDROME (Working Diagnosi s) Harika jose [facility] Melinda.LJarrodCJarrod 5 14:02:54 Obstruct maurilio sleep apnea syndrome 36446907 Active 2021 SEVERE OBSTRUCT MAURILIO SLEEP APNEA Harika jose [facility]rod 5 14:03:52 Supraven tricular tachycar gurdeep 7504453 Completed 202312/20/2024 Harika jose [facility]rod 5 11:59:47 Essentia l hyperten johnny 39894423 Active 2023 German Sorto MD [address] [place] [address], [address] , [facility] Melinda.L.CJarrod 5 10:54:38 Nodule of liver 057623356 Active 2023 Harika jose [facility] 5 14:03:47 Hyperkal emia 91103970 Completed 202311/16/2024 Harikabj jose, [facility] 5 14:01:58 Metaboli c acidosis 30427324 Completed 202311/16/2024 Harikajb jose, [facility] 5 14:03:24 Paroxysm al atrial fibrilla tion 180178386 Active 2023 Harika Swanson rebeca, [facility] 5 14:04:26 Solitary nodule of lung 146524263 Active 2023 Harika Swanson rebeca, [facility] 5 14:06:50 Chronic low back pain 754903070 Active 2024 Harikajb jose, [facility] 5 13:55:53 Lumbar radiculo jen 524939857 Active 2024 Harika Swanson rebeca, [facility] 5 14:03:11 Cervical radiculo jen 63345695 Active 2024 [facility] 5 11:46:42 Spinal stenosis of lumbosac ral region 938279641 Active 2024 Harika Swanson rebeca, [facility] 5 11:46:48 Anxiety 02622093 Active 2024 Harika Swanson rebeca, [facility] 5 11:46:34 Hypergly cemia 70304169 Active 2024 Esther Linn null, [facility] 10:36:08 Cellulit is of right upper limb 74283218925 960591 Active 2024 German Sorto MD [address] [place] [address], [address] [place] [address] , [facility] 15:39:30 Low blood pressure 08446239 Active 2024 German Sorto MD [address] [place] [address] , [facility] 11:38:32 Asthenia 04431148 Active 2024 German Sorto MD [address] [place] [address] , [facility] 11:30:12 Insomnia 767272445 Active 2024 German Sorto MD [address] [place] [address], [address] [place] [address] , [facility] 10:00:42 Problem Notes None recorded. Procedures Surgical History Date Name Laterality Status Provider Name and Address Organization Details Recorded Time transplant of kidney completed [facility] 12/11/2023 08:29:18 Hernia Repair completed [facility]rod 12/11/2023 08:29:30 Knee Surgery completed [facility] 12/11/2023 08:29:41 Carpal Tunnel Surgery completed [facility] LJarrodLJarrodCJarrod 12/11/2023 08:29:50 Appendectomy completed [facility] 12/11/2023 08:29:56 Breast Surgery completed [facility] LJarrodLJarrodCJarrod 12/11/2023 08:30:11 Imaging Results None recorded. Procedure Notes None recorded. Medical Equipment None Reported. Allergies Allergen ID Allergen Name Allergen Category Reaction Reaction Severity Criticality Documentation Date Start Date Code Code System Note Provider Name and Address Organization Details Recorded Time 27833 oxycodone medicatio n confusion Not available Not available 03/03/2025 7804 RxNorm Phyllis Freeman [facility] 5 17:27:25 15041 vancomyci n medicatio n itching Not available Not available 03/29/2025 84463 RxNorm when pushe d too fast Esther Linn [facility] 5 09:25:38 12659 Levaquin medicatio n Not available Not available Not available 05/26/2025 02597 2 RxNorm Harika Swanson [facility] 5 10:23:59 Medications Name Sig Start Date Stop [...] times daily 08/29 completed dose increase cs/smf; 74953; Recorded 01/04/20 8:47AM by Eylse Abdullahi (Authori zed through Jhony Kaur DO), Office Visit; Refill [...] 100 mg tablet daily 10/09 completed cs/smf; 63699; Recorded 01/04/20 22 8:47AM by Elyse Abdullahi [...] completed 0; Recorded 05/23/20 10:23AM by Sheri Reyna RN, Office Visit; [...] bromide 42 mcg (0.06 %) nasal spray Vandergrift 2 sprays 4 times a day by [...] Recorded 05/23/20 22 10:23AM by Sheri Reyna, RN, Office Visit; Not Available Not Available Not Available sodium bicarbona te 12/23 completed Not Available Not Available Not Available acetamino phen 325 active Not Available Not Available Not Available atorvasta tin at bedtime 07/05 completed cs/smf; 99759; Recorded 01/04/20 22 8:47AM by Elyse Abdullahi (Authori juan alberto through Jhony Kaur DO), Office Visit; Refill Quantity : 0; Not Available Not Available Not Available Morphine Sulfate CR every 4-6 hrs. as needed 10/[address] Flanagan . Dose changed by [facility] 0; Recorded 05/23/20 22 10:23AM by Sheri Reyna, RN, Office Visit; Not Available Not Available Not Available metoprolo l tartrate daily 10/[address] Sahu; 0; Recorded 05/23/20 22 10:23AM by Sheri Reyna, RN, Office Visit; Not Available Not Available [...] Not Available Not Available Chlorasep tic Throat Vandergrift 1.4 % aerosol USE THREE SPRAYS TO [...] Relief 50 mcg/actua tion nasal spray,israel pension Vandergrift 1 spray every day by intranas al [...] and Address Organization Details Last Updated DateTime 182.88 cm 24.1 kg/m2 02550.4 4 g 99 % 99 % 82 /min 20 /min 97.3 [degF] 104/70 mm[Hg] Harika Swanson [facility] 09:29:29 Social History Question Answer Notes LastModified by Organizat ion Details LastModified Time Tobacco Smoking Status Former Smoker BLAIRE jose [facility] 10/09/2023 09:09:17 Are You Blind Or Do You Have Difficulty Seeing? No [email or web address] Information not available 10/09/2023 What Is Your Level Of Caffeine Consumption? Moderate Information not available 07/22/2024 Are You Deaf Or Do You Have Serious Difficulty Hearing? No [email or web address] Information not available 10/09/2023 What Type Of Diet Are You Following? REGULAR Information not available 07/22/2024 When Did You Quit Smoking? 6-10yearssinc elastcigarett e [email or web address] Information not available 10/09/2023 Are You Following A Low Salt Diet? Yes Information not available 07/22/2024 What Was The Date Of Your Most Recent Tobacco Screening? 06/11/2025 [email or web address] Information not available 06/11/2025 What Is Your Current Pack Years? 20-29packyear s Information not available 10/09/2023 Do You Have Difficulty Walking Or Climbing Stairs? No [email or web address] Information not available 10/09/2023 Do You Have [...] independently without assistance or assistive devices? YESWOREST [email or web address] Information not available 10/09/2023 Do you have difficulty doing errands alone? No [email or web address] Information not available 10/09/2023 Are you able to care for yourself independently? Yes Information not available 10/09/2023 Do you have difficulty dressing, bathing, grooming, or toileting? No Information not available 10/09/2023 Mental Status Question Answer Note LastModified by Organization D etails LastModified Time Do you have difficulty concentrating, remembering or making decisions? No [email or web address] Information no t available 10/09/2023 Family History [...] Details Recorded Time zoster recombinant 3 completed JOAN jose [facility] 07/16/2023 08:58:36 COVID-19, mRNA, LNP-S, PF, 30 mcg/0.3 mL dose 2 completed [facility] 07/16/2023 08:58:37 COVID-19, mRNA, LNP-S, PF, 30 mcg/0.3 mL dose 1 completed [facility] 07/16/2023 08:58:37 COVID-19, mRNA, LNP-S, PF, 30 mcg/0.3 mL dose 1 completed [facility] 07/16/2023 08:58:37 COVID-19, mRNA, LNP-S, PF, 30 mcg/0.3 mL dose 2 completed [facility] 07/16/2023 08:58:37 Pneumococcal conjugate PCV20, polysaccharide XZC695 conjugate, adjuvant, PF 3 completed [facility] 07/16/2023 08:58:37 COVID-19, mRNA, LNP-S, bivalent, PF, 30 mcg/0.3 mL dose 2 completed [facility] 07/16/2023 08:58:37 Tdap 3 completed [facility] 07/16/2023 08:58:37 Influenza, high-dose, trivalent, PF 0 completed [facility] 07/16/2023 08:58:37 Influenza, split virus, trivalent, preservative 2 completed [facility] 07/16/2023 08:58:37 Td (adult), 2 Lf tetanus toxoid, preservative free, adsorbed 5 completed TAMATHA GREEN null, [facility] 07/16/2023 08:58:37 tetanus toxoid, adsorbed 4 completed TAMATHA GREEN null, [facility] 07/16/2023 08:58:37 zoster recombinant 3 completed Arelis Dubon null, [facility] 03/21/2024 14:13:57 Influenza, split virus, trivalent, preservative 3 completed Arelis Dubon null, [facility] 03/21/2024 14:13:57 COVID-19, mRNA, LNP-S, PF, 50 mcg/0.5 mL 4 completed Not Available [facility] 06/16/2025 09:21:51 Influenza, split virus, trivalent, PF 4 completed Not Available [facility] 06/16/2025 09:21:51 COVID-19, mRNA, LNP-S, PF, jarvis-sucrose, 30 mcg/0.3 mL 4 completed Not Available [facility] 06/16/2025 09:21:51 Hep B, adult 5 completed [facility] 06/16/2025 09:21:51 MMR 5 completed Not Available [facility] 06/16/2025 09:21:51 Hep B, adult 5 completed [facility] Available [facility] 06/16/2025 09:21:51 Influenza, split virus, trivalent, PF 5 completed Not Available [facility] 06/16/2025 09:21:51 Td(adult) unspecified formulation 2 completed [facility], [facility] 07/16/2023 08:58:37 Influenza, split virus, trivalent, preservative 7 completed [facility] 07/16/2023 08:58:37 Influenza, split virus, trivalent, preservative 6 completed [facility] 07/16/2023 08:58:37 Past Encounters Encounter ID Performer Location Encounter Start Date Encounter Closed Date Diagnosis/Indication Diagnosis SNOMED-CT Code Diagnosis ICD10 Code Diagnosis IMO Codes Diagnosis Note [id number] German Sorto MD [facility] ([facility]) [address] [place] [phone] 05/26/2025 09:21:56 05/27/2025 10:29:20 History of renal transplant 060478647 Z48.22 [id number] Continue to follow-up with specialist s. [id number] German Sorto MD [facility] ([facility]) [address] [place] [phone] 05/26/2025 10:10:04 05/26/2025 11:13:28 Essential hypertension 79613237 I10 - Continue monitoring blood pressure at home. - Persist with metoprolol as the sole antihypert ensive. History of renal transplant 714889207 Z48.22 - Plan a follow-up with nephrology through a video consult. Focal segm ental glomerulosclerosis 321731500 N26.9 - Adhere to regular specialty follow-ups and plasmapher esis. 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 Orthostati c hypotension 05614947 I95.1 - Educate on symptom management with postural modificati ons. Tear of skin 840376681 S 51.019A - Maintain wound care; monitor for infection. Asthenia 24073713 R53.1 89229 The patient does have significan t weakness post hospitaliz ation. The patient would benefit from physical therapy evaluation and treatment to help build up strength and improve stability. The patient is currently home bound so we will proceed with referral to home health to provide theses services. [id number] German Sorto MD [facility] ([facility]) [address] [place], [place] [phone] 5 06/04/2025 09:48:07 06/07/2025 09:09:27 History of renal transplant 526574279 Z48.22 - Plan a follow-up with nephrology through a video consult. [id number] FRIDA HERNANDEZ APRN [facility] ([facility]) [address] [place] [phone] 06/11/2025 09:38:50 06/14/2025 15:05:40 Pain in throat 579343090 J02.9 10253 Candidiasis of mouth 797 44987 B37.0 329716 [id number] German Sorto MD [facility] ([facility]) [address] [place] [phone] 06/16/2025 09:02:37 06/17/2025 11:20:09 History of renal transplant 049142250 Z48.22 - Plan a follow-up with nephrology through a video consult. Diarrhea o f presumed infectious origin 44125546 R19.7 99508 [id number] German Sorto MD [facility] ([facility]) [address] [place] [phone] 06/16/2025 09:15:11 06/16/2025 10:07:59 Insomnia 770894546 G47.00 48235619 - Mirtazapin e prescribed for sleep, noted prior sleep aid complicati ons. Altered mental status 41 9910509 R41.82 - Labs ordered to assess potential underlying issues; follow up planned for further neurologic evaluation . At [facility] ed risk for falls 229963121 Z91.81 3799383 - Advised on consistent walker use and safety strategies . History of renal transplant 636532062 Z48.22 - Monitoring with lab evaluation , gwen mitchell transplant history. Health Concerns Section Related Observation LastModified by Organization Detai ls LastModified Time None Recorded Concern Status LastModified by Organization Details LastModified Time None Recorded Payers Encounter Date Sequence Insurance Name Policy Number Policy Joes Covered Member ID Jose Member ID Guarantor Name 06/16/2025 1 [place] [id number] 1 Leslee Mccabe [id number] Mark Mccabe 06/16/2025 2 [employer] (MEDICARE REPLACEMENT/ ADVANTAGE - HMO) Mark Mccabe [id number] Mark Nataly Mccabe Notes Date Note Type Note Provider [...] infection and kidney function. German Sorto MD [address] [place] [address], [phone], [facility] 06/16/2025 10:22:27
--- OUTSIDE RECORDS SUMMARY | 2025-06-22 19:25 | XMS_ITS | Encounter Summary ---
Author Organization [facility] Address [address] [place] [address] Care Team Providers Care Pest Controller Assistant Name Role Phone Unavailable Primary Care Provider Unavailabl e Encounter Details Date Type Department Care Team (Latest Contact Info) Description 06/02/2004 Outpatient Historical [facility] Alejandro Guevara MD [address] [phone] ARTHROPATHY NOS-UNSPEC (Primary Dx) Social History Tobacco Use Types Packs/Day Years Used Date Smoking Tobacco: Never Assessed Sex and Gender Information Value Date Recorded Sex Assigned at Not on file 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
--- OUTSIDE RECORDS SUMMARY | 2025-06-22 19:25 | XMS_ITS | Encounter Summary ---
Author Organization [facility] Address [address] [place] [address] Care Team Providers Care Director Of Corporate Real Estate Name Role Phone Unavailable Primary Care Provider Unavailabl e Encounter Details Date Type Department Care Team (Latest Contact Info) Description 06/11/2005 Outpatient Historical [facility] Spine [facility] [address] 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
--- OUTSIDE RECORDS SUMMARY | 2025-06-22 19:25 | XMS_ITS | Clinical Summary ---
Author Organization [facility] Address [address] [facility] Attn: [place] [address] Care Team Providers Care Power Transformer Inspector Name Role Phone Unavailable Primary Care Provider Unavailabl e Encounters Date Type Department Care Team Description 06/08/2025 External Device Data [facility] ABSTRACTION Provider, Abstract 06/08/2025 External Device Data [facility] ABSTRACTION Provider, Abstract 06/08/2025 External Device Data [facility] ABSTRACTION Provider, Abstract 06/02/[address] [facility] [address] [place] [address] Joaquin Vallejo MD Medical Records (Requested A1C lab results from external provider ([facility]) for continuity of care/insurance quality measures- need results uploaded and resulted in chart.) from Last 3 Months Immunizations Immunization Administration Dates Next Due (ADACEL/BOOSTRIX)(10 YR UP) TDAP VACCINE, 0.5ML, IM 01/25/2023 (M-M-R II/PRIORIX)(12 MO UP) MEASLES, MUMPS AND RUBELLA VIRUS VACCINE, 0.5 ML IM/SUBCUT 01/26/2025 (PREVNAR 20)(6 WKS UP) PNEUM OCOCCAL CONJUGATE VACCINE 20-VALENT (PCV20), POLYSACCHARIDE [id number] CONJUGATE, ADJUVANT 0.5 ML (PF) IM 01/25/2023 (SHINGRIX)(50 YRS UP) ZOSTER VACCINE RECOMBINANT, 0.5 ML, IM 07/26/2023,01/18/2023 (TDVAX)(7 YRS UP) TETANUS AN D DIPHTHERIA TOXOIDS, ADSORBED (2 LF OF TETANUS TOXOID AND 2 LF OF DIPHTHERIA TOXOID), 0.5ML (PF), IM 06/07/2005,01/22/2004 Hepatitis B Vaccine 01/26/2025,12/22/2024 Influenza Seasonal Unspecifi ed Formulation IM 07/26/2023,06/29/2022,07/10/2017,06/26,08/26/2015 Influenza Seasonal Unspecifi ed Formulation PF IM 05/14/2025 Influenza Vaccine High Dose 65+ Yrs IM 0 Influenza, Unspecified Formulation 06/05/2024 Td(adult) Unspecified Formulation 05/23/2022 Tetanus Toxoid, Adsorbed 01/22/2004 Social History Tobacco Use Types Packs/Day Years Used Date Smoking Tobacco: Never Assessed Sex and Gender Information Value Date Recorded Sex Assigned at Not on file 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 Gender Identity Not on file Sexual Orientation Not on file Plan of Treatment Health Maintenance Due Date Last Done Comments HEPATITIS B VACCINES (1 of 3 - 19+ 3-dose series) 1985 01/26/2025, 12/22/2024 FIT-DNA Q 3 years 2011 FIT/FOBT Q 1 year 2011 COVID-19 Vaccine (8 - Pfizer risk season) 2025 06/15/2024, 12/19/2023, 07/12/2022, Additional history exists Flex Sig/CT Colonography Q 5 years 01/27/20292023 DTAP/TDAP/TD VACCINES (2 - T d or Tdap) 01/25/2033 01/25/2023, 05/23/2022, 06/07/2005, Additional history exists COLORECTAL SCREENING 01/27/2034 01/28/2024 Colorectal Cancer Screening 01/27/2034 ZOSTER VACCINE Completed 07/26/2023, 01/18/2023 INFLUENZA VACCINE Completed 05/14/2025, , 07/26/2023, Additional history exists
--- OUTSIDE RECORDS SUMMARY | 2025-06-22 19:25 | XMS_ITS | Patient Health Record ---
Author Organization [facility] Address [address] [place] [address] Care Team Providers Care Mail Processing Equipment Mechanic Name Role Phone Lilian Sanchez Primary Care Provider Unavail able Bakarijem Iron Unavailable [phone] Baldomero Goodsonssica Unavailable [phone] Allergies No Known Allergies Results Component Value Reference Range Flag Notes Tox Results Reviewed date:03/19/2025 04:34:53 PM Interpretation: Performing Lab: Notes/Report: Urine Drug Screen (cup read) - 30120 Reviewed date:03/10/2025 09:20:39 AM Interpretation: Performing Lab: Notes/Report: OPI + Urine Confirmation Panel (in strument) - 24314 Reviewed date:03/17/2025 05:23:02 PM Interpretation: Performing Lab: [...] the U.S. Food and Drug Administration. Gabapentin >44645 <225 ng/mL > This test was developed [...] Provider Speciality Family Med icine [facility] Referred Provider Iron Colvin Referred Address [address],[facility],[address] Referred Provider Specialty Intervention al Pain Medicine General Notes Joanna Ortiz 02:31:59 PM >atc pt, no answer, lvm to call [facility], Joanna Ortiz 12/24/2024 02:38:59 PM >mailed npp, scheduled pt [...] Orally every 8 hours As needed Active Magnesium Oxide 400 MG Tablet 1 [...] Date Status Comme nts Influenza (whole), CPT 82889 Inactive Unknown 07/10/2017 Administered Social History Tobacco [...] Status Risk Notes Problem Chronic pain syndrome (125093587) Chronic pain syndrome (G89.4) Active confirmed Problem Lumbosacral spondylosis without myelopathy (15995118) Other spondylosis with radiculopathy, lumbar region (M47.26) Active confirmed Problem Cervicalgia (41811833) Cervicalgia (M54.2) Active confirmed Problem Lumbar radiculopathy (346775015) Lumbar radiculopathy (M54.16) Active confirmed Problem Lumbar spondylosis (965699137) Lumbar spondylosis (M47.816) Active confirmed Problem Cervical spondylosis (909524935) Cervical spondylosis (M47.812) Active confirmed Problem Abnormal gait (58454920) Abnormality of gait and mobility (R26.9) Active confirmed Problem History of renal transplant (861559971) History of renal transplant (Z94.0) Active confirmed Problem Degeneration of cervical intervertebral disc (29386165) Degeneration, intervertebral disc, 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) Active confirmed Problem Thoracic spondylosis without myelopathy (335775775) 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) Active confirmed Vital Signs Height-cm 182.88 cm 04/21/2025 Weight-kg 84.37 kg 04/21/2025 Height 72 in 04/21/2025 Weight 186 lbs 04/21/2025 BMI 25.22 kg/m2 04/21/2025 Encounters Encounter Location Date Provider Diagnosis [facility] [address] [address] 04/21/2025 Iron Colvin Chronic pain syndrom e G89.4 ; Cervical spondylosis M47.812 ; Multilevel thoracic spondylosis without myelopathy M47.814 ; Other spondylosis with radiculopathy, lumbar region M47.26 ; Abnormality of gait and mobility R26.9 ; senior living (current) use of opiate analgesic Z79.891 ; History of renal transplant Z94.0 ; Lumbar spondylosis M47.816 ; Depression screen Z13.31 and Lumbar radiculopathy M54.16 [facility] [place] [address] [place] [address] 03/10/2025 Iron Krafft Chronic pain syndrom e G89.4 ; Cervical spondylosis M47.812 ; Multilevel thoracic spondylosis without myelopathy M47.814 ; Other spondylosis with radiculopathy, lumbar region M47.26 ; Abnormality of gait and mobility R26.9 ; long term care social worker (current) use of opiate analgesic Z79.891 ; History of renal transplant Z94.0 ; Lumbar spondylosis M47.816 ; Depression screen Z13.31 and Lumbar radiculopathy M54.16 [facility] [place] [address] [place] [facility] [place] [address] 02/10/2025 Iron Arvizufft Chronic pain syndrom e G89.4 ; Abnormality of gait and mobility R26.9 ; Cervical spondylosis M47.812 ; Lumbar radiculopathy M54.16 ; senior living (current) use of opiate analgesic Z79.891 ; [...] getting admitted to the hospital twice in [place], where his renal team is, and he [...] M47.814) 02/10/2025 Cervical spondylosis (ICD-10 - M47.812) 03/10/2025 Other spondylosis with radiculopathy, lumbar region (ICD-10 - M47.26) 02/10/2025 Lumbar radiculopathy (ICD-10 - M54.16) 04/21/2025 Multilevel thoracic spondylosis without myelopathy (ICD-10 - M47.814) 02/10/2025 long term care social worker (current) use of opiate analgesic (ICD-10 - Z79.891) 03/10/2025 Abnormality of gait and mobility (ICD-10 - R26.9) 04/21/2025 Other spondylosis with radiculopathy, lumbar region (ICD-10 - M47.26) 02/10/2025 History of renal transplant (ICD-10 - Z94.0) 03/10/2025 senior living (current) use of opiate analgesic [...] gait and mobility (ICD-10 - R26.9) 02/10/2025 Lumbar spondylosis (ICD-10 - M47.816) 04/21/2025 senior living (current) use of opiate analgesic [...] Z13.31) 04/21/2025 Lumbar radiculopathy (ICD-10 - M54.16) 02/10/2025 Other I, JUAN ANTONIO Underwood, am [...] and it is both accurate and complete. 04/21/2025 Other Maddy Alcala, am scribing for Dr. Iron Colvin. I, Dr. Iron Colvin, personally performed the services described in this documentation, as scribed by Maddy Patiño, and it is both accurate and complete. Plan Of Treatment No Information Insurance Providers Payer Name Payer Address Payer Phone Subscriber Number Group Number Insured Name Patient Relationship to Insured Coverage Start Date Coverage End Date [place] [address] [place] [address] [id number] Mark Mccabe Self - patient is the insured [employer] - Out of [employer] [address] [address] [place] [address] [id number] Mark Mccabe Self - patient is the insured [employer] [address] [place] [address] [id number] Mark Mccabe Self - patient is the [...]
--- OUTSIDE RECORDS SUMMARY | 2025-06-22 19:25 | XMS_ITS | Clinical Summary ---
Author Organization [facility] Address [address] 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
--- OUTSIDE RECORDS SUMMARY | 2025-06-22 19:25 | XMS_ITS | Encounter Summary ---
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
--- OUTSIDE RECORDS SUMMARY | 2025-06-22 19:25 | XMS_ITS | Encounter Summary ---
Author Organization [facility] Address [address] [place] [address] Care Team Providers Care Residential Appliance Repair Technician Name Role Phone Unavailable Primary Care Provider Unavailabl e Encounter Details Date Type Department Care Team (Latest Contact Info) Description 06/02/2004 Outpatient [facility] [address] 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
--- OUTSIDE RECORDS SUMMARY | 2025-06-22 19:25 | XMS_ITS | Encounter Summary ---
Author Organization [facility] Address [address] [place] [address] Care Team Providers Care Pattern Clerk Name Role Phone Unavailable Primary Care Provider Unavailabl e Encounter Details Date Type Department Care Team (Latest Contact Info) Description 06/11/[address] 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
--- NOTE | 2025-06-22 19:31 | ECG_ITS ---
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 Measurements Intervals [place] Rate: 141 P: 15 [place]: 131 QRS: -51 QRSD: 114 T: 107 QT: 299 QTc: 459 Interpretive Statements SINUS TACHYCARDIA, POSSIBLE ATRIAL FLUTTER NONSPECIFIC INTRAVENTRICULAR CONDUCTION DELAY LEFT ANTERIOR FASCICULAR BLOCK [QRS AXIS <= -45, QR IN I, RS IN II] LEFT VENTRICULAR HYPERTROPHY AND ST-T CHANGE [VOLTAGE CRITERIA PLUS ST/T ABNORMALITY] POOR R WAVE PROGRESSION Compared to ECG 05/08/2025 09:02:58 HEART RATE HAS SIGNIFICANTLY INCREASED Electronically Signed On 06-24-2025 19:17:09 CDT by Vikram Dougherty M.D. [email or web address]
--- NOTE | 2025-06-22 19:33 | XRR_ITS ---
PROCEDURE INFORMATION: Exam: XR Chest Exam date and time: 06/22/2025 7:41 PM Age: 60 years old Clinical indication: Shortness of breath; Additional info: Weakness TECHNIQUE: Imaging protocol: Radiologic exam of the chest. Views: 1 view. COMPARISON: CR (CHEST, ) 05/08/2025 6:31 AM FINDINGS: Lungs: Somewhat elongated patchy density right base representing atelectasis or pneumonia. Pleural spaces: Unremarkable. No pleural effusion. No pneumothorax. Heart/Mediastinum: Stable heart size. Stable tortuosity thoracic aorta. Bones/joints: Deformity , sclerosis both humeral heads. Heads of the humeri appears superior with respect of the glenoid some of which may be projectional some subluxation. Narrowing between right acromion process and head of the right humerus consistent with chronic tear of the rotator cuff. Possible previous resection of the distal right clavicle. XR/XR chest 1V portable [id number] IMPRESSION: Pneumonia or atelectasis in the right lung base. Other findings unchanged.
--- NOTE | 2025-06-22 19:34 | ECG_ITS ---
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 Measurements Intervals [place] Rate: 136 P: -36 [place]: 127 QRS: -54 QRSD: 113 T: 97 QT: 311 QTc: 469 Interpretive Statements SINUS TACHYCARDIA LEFT ANTERIOR FASCICULAR BLOCK [QRS AXIS <= -45, QR IN I, RS IN II] LEFT VENTRICULAR HYPERTROPHY AND ST-T CHANGE [VOLTAGE CRITERIA PLUS ST/T ABNORMALITY] POSSIBLE ANTEROSEPTAL MYOCARDIAL INFARCTION , OF INDETERMINATE AGE [30 ms Q WAVE IN V1-V4] Compared to ECG 06/22/2025 19:31:55 NO SIGNIFICANT CHANGE Electronically Signed On 06-24-2025 19:18:39 CDT by Vikram Dougherty M.D. [email or web address]
--- NOTE | 2025-06-22 19:35 | W.ED.SOB ---
Documented by User: Deepa Ng MD 06/22/25 19:48 HPI - SOB/Dyspnea General: Chief Complaint: Shortness of Breath/Dyspnea Stated Complaint: sob Time Seen by Provider: 06/22/25 19:32 History of Present Illness: HPI Narrative: 60-year-old man with a history of renal transplant on tacrolimus, immunocompromise, fibromyalgia, obstructive sleep apnea, BPH, peptic ulcer disease, pulmonary hypertension, atrial fibrillation, chronic pain syndrome on hydromorphone therapy, and hyperlipidemia who presents to the emergency room with weakness and hypotension. says he was doing fine earlier today and suddenly became very short of breath. On presentation here he is tachycardic and appears very short of breath. However his oxygen saturations are 100% on room air. He presents by ambulance. He also says he had some neck pain that started recently Related Data Home Medications ?Medication ?Instructions ?Recorded ?Confirmed cholecalciferol (vitamin D3) 25 25 mcg PO QAM 01/14/20 05/04/25 mcg (1,000 unit) capsule fluticasone propionate 50 2 spray intranasal DAILY PRN 01/14/20 05/04/25 mcg/actuation nasal Allergy Symptoms spray,suspension tamsulosin 0.4 mg capsule 0.4 mg PO QAM 01/14/20 05/04/25 atorvastatin 10 mg tablet 10 mg PO BEDTIME 02/13/21 05/04/25 famotidine 20 mg tablet 20 mg PO BID 07/11/21 05/04/25 hydromorphone 4 mg tablet 4 mg PO Q6H PRN Pain 07/11/21 05/04/25 diphenoxylate-atropine 2.5 2 tab PO QID PRN Diarrhea 01/16/22 05/04/25 mg-0.025 mg tablet (Lomotil) prednisone 5 mg tablet 5 mg PO QAM 01/16/22 05/04/25 Held on 05/07/25. Instructions: Resume on 05/20/25. acetaminophen 325 mg capsule 650 mg PO Q4H PRN Pain 03/20/22 05/04/25 artificial tears(hypromellose) 0.3 1 drp ophthalmic (eye) DAILY PRN 03/13/23 05/04/25 % eye drops Itching patiromer calcium sorbitex 16.8 See Rx Instructions .Route 03/13/23 05/04/25 gram oral powder packet (Velbreannea) .COMPLEX PRN Hyperkalemia empagliflozin 25 mg tablet 25 mg PO QAM 06/06/23 05/04/25 (Jardiance) ferrous sulfate 325 mg (65 mg 325 mg PO QAM 08/08/23 05/04/25 iron) tablet filgrastim 480 mcg/1.6 mL 480 mcg SUBCUT DAILY PRN UNKNOWN 08/08/23 05/04/25 injection solution (Neupogen) finasteride 5 mg tablet 10 mg PO QAM 12/11/23 05/04/25 ipratropium bromide 42 mcg (0.06 2 spray intranasal QID ALLERGIES 12/11/23 05/04/25 %) nasal spray calcium polycarbophil 625 mg 625 mg PO QAM 07/15/24 05/04/25 tablet (FiberCon) duloxetine 60 mg capsule,delayed 60 mg PO QAM 07/15/24 05/04/25 release gabapentin 300 mg capsule 300 mg PO QAM 07/15/24 05/04/25 Held on 05/07/25. Instructions: Resume on 05/14/25. megestrol 400 mg/10 mL (40 mg/mL) 400 mg PO QAM 07/15/24 05/04/25 oral suspension sodium bicarbonate 650 mg tablet 1,300 mg PO BID 07/15/24 05/04/25 duloxetine 30 mg capsule,delayed 30 mg PO BEDTIME 02/20/25 05/04/25 release ondansetron 4 mg disintegrating 4 mg PO Q8H PRN Nausea And Vomiting 02/20/25 05/04/25 tablet tacrolimus 1 mg tablet,extended 1 mg PO DAILY 02/20/25 05/04/25 release 24 hr (Envarsus XR) mycophenolate sodium 180 mg 180 mg PO BID 05/04/25 05/04/25 tablet,delayed release oxycodone 5 mg tablet 5 mg PO Q6H PRN Pain 05/04/25 05/04/25 Previous Rx's ?Medication ?Instructions ?Recorded pantoprazole 40 mg tablet,delayed 40 mg PO BID 6 weeks #84 tabs 04/12/23 release (Protonix) acyclovir 400 mg tablet 400 mg PO TID #21 tabs 05/07/25 metoprolol tartrate 25 mg tablet 25 mg PO BID@0900,2100 #60 tabs 05/07/25 midodrine 5 mg tablet 5 mg PO TID #90 tabs 05/07/25 phenol 1.4 % mucosal aerosol spray 3 spray mucous membrane Q2H PRN 05/07/25 (Sore Throat (phenol)) Sore Throat #177 mL prednisone 10 mg tablet See Rx Instructions .Route 05/07/25 .COMPLEX #10 tabs prednisone 10 mg tablet See Rx Instructions .Route 05/07/25 .COMPLEX #30 tabs Allergies Allergy/AdvReac Type Severity Reaction Status Date / Time vancomycin Allergy ALGY-Difficulty Verified 05/08/25 16:09 Swallowing Review of Systems Narrative: Constitutional symptoms: Negative except as documented in HPI. Skin symptoms: Negative except as documented in HPI. Eye symptoms: Negative except as documented in HPI. ENMT symptoms: Negative except as documented in HPI. Respiratory symptoms: Negative except as documented in HPI. Cardiovascular symptoms: Negative except as documented in HPI. Gastrointestinal symptoms: Negative except as documented in HPI. Genitourinary symptoms: Negative except as documented in HPI. Musculoskeletal symptoms: Negative except as documented in HPI. Neurologic symptoms: Negative except as documented in HPI. Psychiatric symptoms: Negative except as documented in HPI. Endocrine symptoms: Negative except as documented in HPI. PFSH ED PFSH: Medical History (Updated 06/23/25 @ 02:19 by Curtis Crespo DO) 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 therapy Gout Benign prostatic hyperplasia Peptic ulcer disease Obstructive sleep apnea Fibromyalgia Degenerative joint disease of spine Degenerative arthritis History of peritonitis In association with peritoneal dialysis FSGS (focal segmental glomerulosclerosis), tip variant with nephrosis Pulmonary hypertension associated with ESRD on dialysis Hypertension Hyperlipidemia ESRD (end stage renal disease) 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 Carpal tunnel syndrome, bilateral upper limbs Surgical History (Updated 06/23/25 @ 02:19 by Curtis Crespo DO) Hx of colonoscopy less than 1 year, no polyps History of esophagogastroduodenoscopy (EGD) less than 1 year History of bilateral carpal tunnel release History of right breast biopsy for benign disease History of thoracotomy with chest tube, for pneumonia History of kidney transplant (09/2021) History of cholecystectomy History of umbilical hernia repair History of arthroscopic knee surgery x 3 History of arthroscopy of right shoulder Family History Father CAD (coronary artery disease) Chronic kidney disease (CKD) Mother Arthritis Other Diabetes Hyperlipidemia Hypertension Denies family history of Clotting disorder Dementia Psychiatric illness Suicide Anesthesia complication Bleeding disorder Lung disease Cancer Stroke Social History Smoking and tobacco/nicotine status: former use of tobacco/nicotine Alcohol intake: never Substance/Drug Use: never Household members: spouse Marital status: Current occupational status: disabled Physical Exam Narrative: EXAM NARRATIVE: General: Alert, patient appears in moderate distress Skin: Warm, dry. Head: Normocephalic, atraumatic. Neck: Supple, trachea midline. Eye: Extraocular movements are intact. Ears, nose, mouth and throat: mucosa moist. Cardiovascular: Tachycardic, poor peripheral perfusion. Respiratory: Coarse breath sounds, tachypnea, moderate increased work of breathing Gastrointestinal: Soft, Nontender, Non distended Musculoskeletal: Normal ROM, no deformity. Neurological: Alert and oriented, No focal neurological deficit observed. Psychiatric: Cooperative, appropriate mood & affect. Course Vital Signs: Vital signs: Vital Signs Temperature 98.2 F 06/22/25 19:18 Pulse Rate 124 H 06/23/25 00:45 Respiratory Rate 25 H 06/23/25 00:45 Blood Pressure 66/31 06/23/25 00:45 Pulse Oximetry 100 06/23/25 00:45 Oxygen Delivery Me thod High Flow Nasal C annula 06/22/25 22:45 Oxygen Flow Rate 3 06/22/25 21:34 MDM - SOB/Dyspnea Lab Data 06/22/25 18:55 06/22/25 18:55 Labs/Radiology: Radiology Impressions Chest/Abdomen/Pelvis CT 06/22/25 20:46 IMPRESSION: Infiltrate versus atelectasis in the lateral aspect of the right middle lobe, with other etiologies not totally excluded. IMPRESSION: Fluid attenuation luminal material within several loops of small bowel, may be related to ingested material although can not exclude mild enteritis or diarrhea related process. No definitive radiographic evidence of occult abscess. COMMENTS: Consistent with the [employer]'s Incidental Findings Committee white paper (J Am Karen Radiol 2018): Any incidental renal lesion less than 1 cm or classified as too small to characterize, or any incidental cystic renal lesion characterized as simple-appearing, is likely benign. No follow-up imaging is recommended for these lesions per consensus recommendations based on imaging criteria. Head CT 06/22/25 20:46 IMPRESSION: Stable atrophic changes, chronic ischemic changes, without acute appearing intracranial abnormality. Chest X-Ray 06/23/25 00:03 IMPRESSION: 1. Infiltrate in the right lower lobe, concerning for pneumonia versus atelectasis with other etiologies not excluded. 2. Left neck central line with tip at the lower SVC. Laboratory Results WBC 0.93 10^3/uL (3.29-11.43) L* 06/22/25 18:55 RBC 3.18 10^6/uL (3.85-5.65) L 06/22/25 18:55 Hgb 10.70 g/dL (11.27-16.99) L 06/22/25 18:55 Hct 34.6 % (37-53) L 06/22/25 18:55 MCV 108.8 fl (82-101) H 06/22/25 18:55 MCH 33.6 pg (27-33) H 06/22/25 18:55 MCHC 30.9 g/dL (30-55) 06/22/25 18:55 RDW 21.5 % (12.1-15.1) H 06/22/25 18:55 Plt Count 85 10^3/cmm (157-399) L 06/22/25 18:55 MPV 10.4 fL (7.4-10.4) 06/22/25 18:55 Neut % (Auto) 23.6 % 06/22/25 18:55 Lymph % (Auto) 72.0 % 06/22/25 18:55 [place] % (Auto) 2.2 % 06/22/25 18:55 Eos % (Auto) 0.0 % 06/22/25 18:55 Baso % (Auto) 0.0 % 06/22/25 18:55 Neut # (Auto) 0.22 10^3/uL (1.8-7.7) L* 06/22/25 18:55 Lymph # (Auto) 0.7 10^3/uL (0.8-4.8) L 06/22/25 18:55 [place] # (Auto) 0.0 10^3/uL (0.2-0.9) L 06/22/25 18:55 Eos # (Auto) 0.0 10^3/uL (0.0-0.8) 06/22/25 18:55 Baso # (Auto) 0.0 10^3/uL (0.0-0.1) 06/22/25 18:55 Nucleated RBC % (auto) 5.4 % 06/22/25 18:55 Nucleated RBCs # 0.1 /100WBC 06/22/25 18:55 Sodium 139 mmol/L (136-145) 06/22/25 18:55 Potassium 4.9 mmol/L (3.5-5.1) 06/22/25 18:55 Chloride 107 mmol/L (98-107) 06/22/25 18:55 Carbon Dioxide 11 mmol/L (22-29) L 06/22/25 18:55 Anion Gap 25.9 (5-19) H 06/22/25 18:55 BUN 32 mg/dL (6-20) H 06/22/25 18:55 Creatinine 1.9 mg/dL (0.7-1.2) H 06/22/25 18:55 GFR Calculation 36.5 mL/min (90-130) L 06/22/25 18:55 Glucose 105 mg/dL (65-115) 06/22/25 18:55 Calculated Osmolality 295 mOsm/kg (285-295) 06/22/25 18:55 Lactic Acid 9.9 mmol/L (0.5-2.2) H* 06/22/25 18:55 Lactic Acid (Sepsis) 8.3 mmol/L (0.5-2.2) H* 06/22/25 22:37 Calcium 9.1 mg/dL (8.5-10.5) 06/22/25 18:55 Total Bilirubin 1.0 mg/dL (0.15-1.2) 06/22/25 18:55 AST 19 U/L (0-40) 06/22/25 18:55 ALT 10 U/L (0-41) 06/22/25 18:55 Alkaline Phosphatase 44 U/L (40-130) 06/22/25 18:55 Troponin T Baseline 162 ng/L (0-15) H* 06/22/25 18:55 Troponin T 120 Minute 140.4 ng/L (0-15) H 06/22/25 20:35 Delta Troponin T -21.6 ABS# (0-10) L 06/22/25 20:35 C-Reactive Protein 31.9 mg/L (0.0-4.9) H 06/22/25 18:55 Total Protein 5.4 g/dL (6.6-8.7) L 06/22/25 18:55 Albumin 4.6 g/dL (3.5-5.2) 06/22/25 18:55 Globulin 0.8 g/dL (1.3-4.6) L 06/22/25 18:55 Procalcitonin 0.97 ng/mL (0-0.5) H 06/22/25 18:55 Influenza A (PCR) Negative (Negative) 06/22/25 20:59 Influenza Type B (PCR) Negative (Negative) 06/22/25 20:59 RSV (PCR) Negative (Negative) 06/22/25 20:59 SARS-CoV-2 (PCR) Negative (Negative) 06/22/25 20:59 Discharge Plan Discharge Patient Disposition: Xfer Short-Term Hosp Clinical Impression: Septic shock, Cytomegalovirus (CMV) viremia, Renal transplant, status post Condition: Critical Print Language: Liberian Coding Level of Care Code ED Director Of Strategy & Mobile for [facility] Fwd Documented by User: Curtis Crespo DO 06/23/25 03:55 HPI - SOB/Dyspnea General: Chief Complaint: Shortness of Breath/Dyspnea Stated Complaint: sob Time Seen by Provider: 06/22/25 19:32 Related Data Home Medications ?Medication ?Instructions ?Recorded ?Confirmed cholecalciferol (vitamin D3) 25 25 mcg PO QAM 01/14/20 05/04/25 mcg (1,000 unit) capsule fluticasone propionate 50 2 spray intranasal DAILY PRN 01/14/20 05/04/25 mcg/actuation nasal Allergy Symptoms spray,suspension tamsulosin 0.4 mg capsule 0.4 mg PO QAM 01/14/20 05/04/25 atorvastatin 10 mg tablet 10 mg PO BEDTIME 02/13/21 05/04/25 famotidine 20 mg tablet 20 mg PO BID 07/11/21 05/04/25 hydromorphone 4 mg tablet 4 mg PO Q6H PRN Pain 07/11/21 05/04/25 diphenoxylate-atropine 2.5 2 tab PO QID PRN Diarrhea 01/16/22 05/04/25 mg-0.025 mg tablet (Lomotil) prednisone 5 mg tablet 5 mg PO QAM 01/16/22 05/04/25 Held on 05/07/25. Instructions: Resume on 05/20/25. acetaminophen 325 mg capsule 650 mg PO Q4H PRN Pain 03/20/22 05/04/25 artificial tears(hypromellose) 0.3 1 drp ophthalmic (eye) DAILY PRN 03/13/23 05/04/25 % eye drops Itching patiromer calcium sorbitex 16.8 See Rx Instructions .Route 03/13/23 05/04/25 gram oral powder packet (Veltassa) .COMPLEX PRN Hyperkalemia empagliflozin 25 mg tablet 25 mg PO QAM 06/06/23 05/04/25 (Jardiance) ferrous sulfate 325 mg (65 mg 325 mg PO QAM 08/08/23 05/04/25 iron) tablet filgrastim 480 mcg/1.6 mL 480 mcg SUBCUT DAILY PRN UNKNOWN 08/08/23 05/04/25 injection solution (Neupogen) finasteride 5 mg tablet 10 mg PO QAM 12/11/23 05/04/25 ipratropium bromide 42 mcg (0.06 2 spray intranasal QID ALLERGIES 12/11/23 05/04/25 %) nasal spray calcium polycarbophil 625 mg 625 mg PO QAM 07/15/24 05/04/25 tablet (FiberCon) duloxetine 60 mg capsule,delayed 60 mg PO QAM 07/15/24 05/04/25 release gabapentin 300 mg capsule 300 mg PO QAM 07/15/24 05/04/25 Held on 05/07/25. Instructions: Resume on 05/14/25. megestrol 400 mg/10 mL (40 mg/mL) 400 mg PO QAM 07/15/24 05/04/25 oral suspension sodium bicarbonate 650 mg tablet 1,300 mg PO BID 07/15/24 05/04/25 duloxetine 30 mg capsule,delayed 30 mg PO BEDTIME 02/20/25 05/04/25 release ondansetron 4 mg disintegrating 4 mg PO Q8H PRN Nausea And Vomiting 02/20/25 05/04/25 tablet tacrolimus 1 mg tablet,extended 1 mg PO DAILY 02/20/25 05/04/25 release 24 hr (Envarsus XR) mycophenolate sodium 180 mg 180 mg PO BID 05/04/25 05/04/25 tablet,delayed release oxycodone 5 mg tablet 5 mg PO Q6H PRN Pain 05/04/25 05/04/25 Previous Rx's ?Medication ?Instructions ?Recorded pantoprazole 40 mg tablet,delayed 40 mg PO BID 6 weeks #84 tabs 04/12/23 release (Protonix) acyclovir 400 mg tablet 400 mg PO TID #21 tabs 05/07/25 metoprolol tartrate 25 mg tablet 25 mg PO BID@0900,2100 #60 tabs 05/07/25 midodrine 5 mg tablet 5 mg PO TID #90 tabs 05/07/25 phenol 1.4 % mucosal aerosol spray 3 spray mucous membrane Q2H PRN 05/07/25 (Sore Throat (phenol)) Sore Throat #177 mL prednisone 10 mg tablet See Rx Instructions .Route 05/07/25 .COMPLEX #10 tabs prednisone 10 mg tablet See Rx Instructions .Route 05/07/25 .COMPLEX #30 tabs Allergies Allergy/AdvReac Type Severity Reaction Status Date / Time vancomycin Allergy ALGY-Difficulty Verified 05/08/25 16:09 Swallowing PFS ED PFSH: Medical History (Updated 06/23/25 @ 02:19 by Curtis Crespo DO) 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 therapy Gout Benign prostatic hyperplasia Peptic ulcer disease Obstructive sleep apnea Fibromyalgia Degenerative joint disease of spine Degenerative arthritis History of peritonitis In association with peritoneal dialysis FSGS (focal segmental glomerulosclerosis), tip variant with nephrosis Pulmonary hypertension associated with ESRD on dialysis Hypertension Hyperlipidemia ESRD (end stage renal disease) 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 Carpal tunnel syndrome, bilateral upper limbs Surgical History (Updated 06/23/25 @ 02:19 by Curtis Crespo DO) Hx of colonoscopy less than 1 year, no polyps History of esophagogastroduodenoscopy (EGD) less than 1 year History of bilateral carpal tunnel release History of right breast biopsy for benign disease History of thoracotomy with chest tube, for pneumonia History of kidney transplant (09/2021) History of cholecystectomy History of umbilical hernia repair History of arthroscopic knee surgery x 3 History of arthroscopy of right shoulder Family History Father CAD (coronary artery disease) Chronic kidney disease (CKD) Mother Arthritis Other Diabetes Hyperlipidemia Hypertension Denies family history of Clotting disorder Dementia Psychiatric illness Suicide Anesthesia complication Bleeding disorder Lung disease Cancer Stroke Social History Smoking and tobacco/nicotine status: former use of tobacco/nicotine Alcohol intake: never Substance/Drug Use: never Household members: spouse Marital status: Current occupational status: disabled Procedures Central Line Placement Left IJ: Prep: mask, gown and gloves Central Line Prep: Chlorhexidine scrub and sterile drapes applied Local Anesthetic: lidocaine 1% Amount of anesthesia used (mL): 5 Ultrasound Used for Placement: Yes Central Line Lumen Inserted: triple Post Procedure: sutured in place, good blood return, all ports aspirated, flushed, capped and sterile dressing applied Patient Tolerated Procedure: well and no complications Complications: none Additional Comments: Difficult CVL secondary to refractory shock, right IJ was attempted but could not pass wire past 10 cm so decision was made to place in left IJ which was done with more ease and placed successfully with no obvious complications. Course Vital Signs: Vital signs: Vital Signs Temperature 98.2 F 06/22/25 19:18 Pulse Rate 124 H 06/23/25 00:45 Respiratory Rate 25 H 06/23/25 00:45 Blood Pressure 66/31 06/23/25 00:45 Pulse Oximetry 100 06/23/25 00:45 Oxygen Delivery Me thod High Flow Nasal C annula 06/22/25 22:45 Oxygen Flow Rate 3 06/22/25 21:34 MDM - SOB/Dyspnea Medical Decision Making Took over patient after initial presentation and labs were ordered by previous physician, Dr. Ng, in short, a patient with renal transplant secondary to FSGS, on Plavix and tacrolimus. Abrupt onset of shortness of breath, generalized weakness, neck pain that started earlier today. He had a recent hospitalization for pneumonia at the outside hospital, he was also being treated for CMV viremia, he has been on p.o. antiviral since. He was generally doing well until today, has been eating normally, no vomiting or diarrhea, no urinary changes, no chest pain. Patient last had a Plex session yesterday that had no complications. He initially arrived very hypotensive and tachycardic, had chills and so was sepsis alerted, started on 2.5 L of fluid and meropenem and Zyvox, this is where he took over, his laboratory studies were still pending, initial lactate of 10. Throughout his visit, we had difficulties with his blood pressure, has a left upper extremity fistula, right arm with multiple IVs and so blood pressure cuff was on his legs but seemingly never caught a great pressure, he had thready peripheral pulses and never had changes in mentation but with a lactate of 10, believed his hypotension. Got chaudhair CT imaging which was mostly unremarkable except for scattered bibasilar opacities, said it could be resolving or possible superimposed pneumonia, with his abrupt and severe onset, counted this clinically as a new pneumonia. Discussed case with pharmacy and we do not have any antivirals IV that we will cover CMV at this time. Even after 2 L and a half of fluid, he remained hypotensive with pressures fluctuating from the 70s to 90s, heart rate was sustained in the 120s, decision to start Levophed done and patient slowly uptitrated from low to max dose and period of a few hours. Discussion was then had for transfer since he did not have antivirals and he was a transplant patient needing tertiary care, [facility] in [place] was called first (patient preference) and discussed with their ICU physician who ultimately declined so and requested that he go to his original transplant center for their subspecialty evaluation which was reasonable. Then called [facility] in [place] and discussed case with the transferring doctor and local telephone operator who accepted the physician. In the meantime, patient's respiratory rate kept increasing, seemingly to compensate for his large metabolic acidosis, he was never truly hypoxic but was placed on a few liters of oxygen for comfort, became more tachypneic and so decision was made to place him on high flow so he did not tire out. His pressures were still soft and so decision was made to start vasopressin and add stress dose steroids. Central line was then placed, difficult placement, probably because so hypotensive, was not able to pass wire when attempted right IJ so I to switch sides and placed in left IJ successfully. Patient's pressure then seemed to stabilize in the 90s, became less tachycardic, his respiratory rate seemed to improve slightly, lactate came down to 8.4 and so he was deemed immediately stabilized did not need intubation because was a high physiological risk for deterioration and coding and then EMS arrived for his transport. He did have a brief episode of hypotension but still looked overall improved so no additional maneuvers were added and advised epinephrine if his mentation became different or became more tachycardic for additional vasoconstriction. Extensive discussion with at bedside and updated with plan of care and agreeable with transfer. Lab Data 06/22/25 18:55 06/22/25 18:55 Labs/Radiology: Radiology Impressions Chest/Abdomen/Pelvis CT 06/22/25 20:46 IMPRESSION: Infiltrate versus atelectasis in the lateral aspect of the right middle lobe, with other etiologies not totally excluded. IMPRESSION: Fluid attenuation luminal material within several loops of small bowel, may be related to ingested material although can not exclude mild enteritis or diarrhea related process. No definitive radiographic evidence of occult abscess. COMMENTS: Consistent with the [employer]'s Incidental Findings Committee white paper (J Am Karen Radiol 2018): Any incidental renal lesion less than 1 cm or classified as too small to characterize, or any incidental cystic renal lesion characterized as simple-appearing, is likely benign. No follow-up imaging is recommended for these lesions per consensus recommendations based on imaging criteria. Head CT 06/22/25 20:46 IMPRESSION: Stable atrophic changes, chronic ischemic changes, without acute appearing intracranial abnormality. Chest X-Ray 06/23/25 00:03 IMPRESSION: 1. Infiltrate in the right lower lobe, concerning for pneumonia versus atelectasis with other etiologies not excluded. 2. Left neck central line with tip at the lower SVC. Laboratory Results WBC 0.93 10^3/uL (3.29-11.43) L* 06/22/25 18:55 RBC 3.18 10^6/uL (3.85-5.65) L 06/22/25 18:55 Hgb 10.70 g/dL (11.27-16.99) L 06/22/25 18:55 Hct 34.6 % (37-53) L 06/22/25 18:55 MCV 108.8 fl (82-101) H 06/22/25 18:55 MCH 33.6 pg (27-33) H 06/22/25 18:55 MCHC 30.9 g/dL (30-55) 06/22/25 18:55 RDW 21.5 % (12.1-15.1) H 06/22/25 18:55 Plt Count 85 10^3/cmm (157-399) L 06/22/25 18:55 MPV 10.4 fL (7.4-10.4) 06/22/25 18:55 Neut % (Auto) 23.6 % 06/22/25 18:55 Lymph % (Auto) 72.0 % 06/22/25 18:55 [place] % (Auto) 2.2 % 06/22/25 18:55 Eos % (Auto) 0.0 % 06/22/25 18:55 Baso % (Auto) 0.0 % 06/22/25 18:55 Neut # (Auto) 0.22 10^3/uL (1.8-7.7) L* 06/22/25 18:55 Lymph # (Auto) 0.7 10^3/uL (0.8-4.8) L 06/22/25 18:55 [place] # (Auto) 0.0 10^3/uL (0.2-0.9) L 06/22/25 18:55 Eos # (Auto) 0.0 10^3/uL (0.0-0.8) 06/22/25 18:55 Baso # (Auto) 0.0 10^3/uL (0.0-0.1) 06/22/25 18:55 Nucleated RBC % (auto) 5.4 % 06/22/25 18:55 Nucleated RBCs # 0.1 /100WBC 06/22/25 18:55 Sodium 139 mmol/L (136-145) 06/22/25 18:55 Potassium 4.9 mmol/L (3.5-5.1) 06/22/25 18:55 Chloride 107 mmol/L (98-107) 06/22/25 18:55 Carbon Dioxide 11 mmol/L (22-29) L 06/22/25 18:55 Anion Gap 25.9 (5-19) H 06/22/25 18:55 BUN 32 mg/dL (6-20) H 06/22/25 18:55 Creatinine 1.9 mg/dL (0.7-1.2) H 06/22/25 18:55 GFR Calculation 36.5 mL/min (90-130) L 06/22/25 18:55 Glucose 105 mg/dL (65-115) 06/22/25 18:55 Calculated Osmolality 295 mOsm/kg (285-295) 06/22/25 18:55 Lactic Acid 9.9 mmol/L (0.5-2.2) H* 06/22/25 18:55 Lactic Acid (Sepsis) 8.3 mmol/L (0.5-2.2) H* 06/22/25 22:37 Calcium 9.1 mg/dL (8.5-10.5) 06/22/25 18:55 Total Bilirubin 1.0 mg/dL (0.15-1.2) 06/22/25 18:55 AST 19 U/L (0-40) 06/22/25 18:55 ALT 10 U/L (0-41) 06/22/25 18:55 Alkaline Phosphatase 44 U/L (40-130) 06/22/25 18:55 Troponin T Baseline 162 ng/L (0-15) H* 06/22/25 18:55 Troponin T 120 Minute 140.4 ng/L (0-15) H 06/22/25 20:35 Delta Troponin T -21.6 ABS# (0-10) L 06/22/25 20:35 C-Reactive Protein 31.9 mg/L (0.0-4.9) H 06/22/25 18:55 Total Protein 5.4 g/dL (6.6-8.7) L 06/22/25 18:55 Albumin 4.6 g/dL (3.5-5.2) 06/22/25 18:55 Globulin 0.8 g/dL (1.3-4.6) L 06/22/25 18:55 Procalcitonin 0.97 ng/mL (0-0.5) H 06/22/25 18:55 Influenza A (PCR) Negative (Negative) 06/22/25 20:59 Influenza Type B (PCR) Negative (Negative) 06/22/25 20:59 RSV (PCR) Negative (Negative) 06/22/25 20:59 SARS-CoV-2 (PCR) Negative (Negative) 06/22/25 20:59 All radiology interpretation(s) finalized by discharge Critical Care Time Critical Care Time: Critical Care Time: Yes Total Critical Care Time: 97 Attestation: see MDM for extensive shock support in the immunocompromise patient requiring multiple vasopressors and coordination with multiple specialist for definitive care. Discharge Plan Discharge Patient Disposition: Xfer Short-Term Hosp Clinical Impression: Septic shock, Cytomegalovirus (CMV) viremia, Renal transplant, status post Condition: Critical Print Language: Liberian Coding Level of Care Code ED Director Of Strategy & Mobile for Audrey Almanza
[2025-06-22 19:49] LABS: Hematocrit 34.6 % (37-53); Hemoglobin 10.70 g/dL (11.27-16.99); Mean Corpuscular HGB Conc 30.9 g/dL (30-55); Mean Corpuscular Hemoglobin 33.6 pg (27-33); Mean Corpuscular Volume 108.8 fl (82-101); Nucleated Red Blood Cells % 5.4 %; Platelet Count 85 10^3/cmm (157-399); Red Blood Count 3.18 10^6/uL (3.85-5.65)
[2025-06-22 20:09] LABS: Alanine Aminotransferase 10 U/L (0-41); Albumin Level 4.6 g/dL (3.5-5.2); Alkaline Phosphatase 44 U/L (40-130); Blood Urea Nitrogen 32 mg/dL (6-20); Calcium 9.1 mg/dL (8.5-10.5); Carbon Dioxide 11 mmol/L (22-29); Chloride 107 mmol/L (98-107); Creatinine Clr Calc Pharmacy 47.9802; Globulin 0.8 g/dL (1.3-4.6); Glucose 105 mg/dL (65-115); Osmolality Calculated 295 mOsm/kg (285-295); Sodium 139 mmol/L (136-145); Total Protein 5.4 g/dL (6.6-8.7)
[2025-06-22 20:12] LABS: Lactic Sepsis W/Reflex 9.9 mmol/L (0.5-2.2); Troponin(5th) Baseline 162 ng/L (0-15)
[2025-06-22 20:16] LABS: Procalcitonin 0.97 ng/mL (0-0.5)
[2025-06-22 20:21] VITALS: BP 47/33; PULSE 131; RESP 22; O2SAT 100
[2025-06-22] MEDS: norepinephrine 4 MG/250 ML BAG 30 MG IV (20:30)
[2025-06-22] MEDS: linezolid premix 600 MG/300 ML PREMIX 300 MG IV (20:31)
[2025-06-22 20:35] LABS: Slide Review Slide Review Perform
[2025-06-22 20:36] LABS: White Blood Count 0.93 10^3/uL (3.29-11.43)
[2025-06-22 20:39] LABS: Anion Gap 25.9 (5-19); Potassium 4.9 mmol/L (3.5-5.1)
[2025-06-22 20:40] LABS: Aspartate Amino Transferase 19 U/L (0-40)
--- NOTE | 2025-06-22 20:46 | CTR_ITS ---
PROCEDURE INFORMATION: Exam: CT Chest With Contrast; Diagnostic Exam date and time: 06/22/2025 9:17 PM Age: 60 years old Clinical indication: Other: Renal transplant, septic, COLMENARES and neck pain; Additional info: Septic, renal tx, SOB, lower abd pain, septic TECHNIQUE: Imaging protocol: Diagnostic computed tomography of the chest with contrast. Radiation optimization: All CT scans at this facility use at least one of these dose optimization techniques: automated exposure control; mA and/or kV adjustment per patient size (includes targeted exams where dose is matched to clinical indication); or iterative reconstruction. Contrast material: [id number]; Contrast volume: 100 ml; Contrast route: INTRAVENOUS (IV); COMPARISON: CT angio chest PE protcl [id number] 04/29/2025 12:52 PM RADIATION DOSE METRICS: Total DLP (mGy-cm): 1394.06 FINDINGS: Lungs: Infiltrate versus atelectasis in the lateral aspect of the right middle lobe, with other etiologies not totally excluded. Dependent changes, likely atelectasis with superimposed infection not totally excluded. Pleural spaces: Unremarkable. No pneumothorax. No pleural effusion. Heart: Unremarkable. No cardiomegaly. No pericardial effusion. Lymph nodes: Unremarkable. No enlarged lymph nodes. Vasculature: Aortic and coronary atherosclerosis. Bones/joints: Mild degenerative changes of the thoracic vertebral bodies. Soft tissues: Unremarkable. Other findings: Motion artifact limits exam. PROCEDURE INFORMATION: Exam: CT Abdomen And Pelvis With Contrast Exam date and time: 06/22/2025 9:17 PM Age: 60 years old Clinical indication: Other: Renal transplant, septic, COLMENARES and neck pain; Additional info: Septic, renal tx, SOB, lower abd pain, septic TECHNIQUE: Imaging protocol: Computed tomography of the abdomen and pelvis with contrast. Radiation optimization: All CT scans at this facility use at least one of these dose optimization techniques: automated exposure control; mA and/or kV adjustment per patient size (includes targeted exams where dose is matched to clinical indication); or iterative reconstruction. Contrast material: [id number]; Contrast volume: 100 ml; Contrast route: INTRAVENOUS (IV); COMPARISON: CT abdomen pelvis wo con [id number] 02/20/2025 7:40 AM RADIATION DOSE METRICS: Total DLP (mGy-cm): 1394.06 FINDINGS: Liver: Normal. No mass. Gallbladder and biliary ducts: Cholecystectomy clips. Pancreas: Normal. No ductal dilation. Spleen: Normal. No splenomegaly. Adrenal glands: See Kidneys and ureters finding. Kidneys and ureters: Bilateral renal atrophy. Right lower quadrant transplant kidney. Indeterminate left renal nodule measures up to 15 cm, consider nonurgent adrenal lesion protocol MR for further characterization if clinically indicated. Stomach and bowel: Fluid attenuation luminal material within several loops of small bowel, may be related to ingested material although can not exclude mild enteritis or diarrhea related process. Appendix: No evidence of appendicitis. Intraperitoneal space: Unremarkable. No free air. No significant fluid collection. Vasculature: Aortic atherosclerosis. Lymph nodes: Unremarkable. No enlarged lymph nodes. Urinary bladder: Tiny collection at the left anterolateral aspect of the bladder measuring up to 3.0 cm, possibly resolving hematoma related to prior hemorrhage. Reproductive: Unremarkable as visualized. Bones/joints: Unremarkable. No acute fracture. Soft tissues: Unremarkable. CT/CT chest abdpel w/*[id number] IMPRESSION: Infiltrate versus atelectasis in the lateral aspect of the right middle lobe, with other etiologies not totally excluded. IMPRESSION: Fluid attenuation luminal material within several loops of small bowel, may be related to ingested material although can not exclude mild enteritis or diarrhea related process. No definitive radiographic evidence of occult abscess. COMMENTS: Consistent with the [employer]'s Incidental Findings Committee white paper (J Am Karen Radiol 2018): Any incidental renal lesion less than 1 cm or classified as too small to characterize, or any incidental cystic renal lesion characterized as simple-appearing, is likely benign. No follow-up imaging is recommended for these lesions per consensus recommendations based on imaging criteria.
--- NOTE | 2025-06-22 20:46 | CTR_ITS ---
PROCEDURE INFORMATION: Exam: CT Head Without Contrast Exam date and time: 06/22/2025 9:15 PM Age: 60 years old Clinical indication: Other: Renal transplant, septic, COLMENARES and neck pain TECHNIQUE: Imaging protocol: Computed tomography of the head without contrast. Radiation optimization: All CT scans at this facility use at least one of these dose optimization techniques: automated exposure control; mA and/or kV adjustment per patient size (includes targeted exams where dose is matched to clinical indication); or iterative reconstruction. COMPARISON: CT head wo con* [id number] 04/29/2025 12:47 PM RADIATION DOSE METRICS: Total DLP (mGy-cm): 1108.63 FINDINGS: Brain: Stable moderate atrophic changes. Again seen areas of decreased periventricular and subcortical white matter density consistent with chronic ischemic change. Old small lacunar infarct right basal ganglia. No evidence of acute intracranial hemorrhage or mass. Again seen calcification cavernous portions of the internal carotid arteries. Cerebral ventricles: Proportionate to atrophic changes. Paranasal sinuses: Visualized sinuses are unremarkable. No fluid levels. Mastoid air cells: Visualized mastoid air cells are well aerated. Bones: Unremarkable. No acute fracture. Soft tissues: Unremarkable. CT/CT head wo con* [id number] IMPRESSION: Stable atrophic changes, chronic ischemic changes, without acute appearing intracranial abnormality.
[2025-06-22 21:14] LABS: Troponin 5 2HR 140.4 ng/L (0-15); Troponin 5 2HR Delta -21.6 ABS# (0-10)
[2025-06-22] MEDS: iohexol 350 mg/mL 500 mL Btl (per mL) IV (21:18)
[2025-06-22 21:27] LABS: Reflex Lactate Order REFLEX LACTIC ORDERD
[2025-06-22 21:34] VITALS: BP 71/42; PULSE 127; RESP 25; O2SAT 96
[2025-06-22 21:46] LABS: Respiratory Syncytial Virus Ce NEGATIVE (Negative); SARS-CoV-2 PCR NEGATIVE (Negative)
[2025-06-22] MEDS: ondansetron 2 mg/ML SDV 2 mL 4 MG IVP (22:07)
[2025-06-22 22:23] VITALS: BP 55/32; PULSE 132; RESP 25; O2SAT 91
[2025-06-22 22:45] VITALS: PULSE 139; RESP 50; O2SAT 98
[2025-06-22] MEDS: hydrocortisone 100 mg/2 mL SDV IVP (22:49)
[2025-06-22 23:10] LABS: Lactic Acid level (Lactate) 8.3 mmol/L (0.5-2.2)
[2025-06-23] VITALS: BP 103/83; PULSE 125; RESP 31; O2SAT 99
--- NOTE | 2025-06-23 00:03 | XRR_ITS ---
PROCEDURE INFORMATION: Exam: XR Chest Exam date and time: 06/23/2025 12:04 AM Age: 60 years old Clinical indication: Other vascular access device placement or adjustment; Central line, non-tunnelled; Additional info: Post L ij cvl TECHNIQUE: Imaging protocol: Radiologic exam of the chest. Views: 1 view. COMPARISON: CT chest abdpel w/*[id number] 06/22/2025 9:17 PM FINDINGS: Tubes, catheters and devices: Left neck central line with tip at the lower SVC. Lungs: Infiltrate in the right lower lobe, concerning for pneumonia versus atelectasis with other etiologies not excluded. Pleural spaces: Unremarkable. No pleural effusion. No pneumothorax. Heart/Mediastinum: Unremarkable. No cardiomegaly. Bones/joints: Unremarkable. XR/XR chest 1V portable [id number] IMPRESSION: 1. Infiltrate in the right lower lobe, concerning for pneumonia versus atelectasis with other etiologies not excluded. 2. Left neck central line with tip at the lower SVC.
[2025-06-23] MEDS: vasopressin 40 UNIT/100 ML PREMIX IV (00:10)
[2025-06-23] MEDS: norepinephrine 4 MG/250 ML BAG 75 MG IV (00:25)
--- NOTE | 2025-06-23 00:42 | PC.NURSE ---
[facility] transfer line called for update on transfer and medications @0040. Given medication rates of medications and what medications pt is being transferred on.
[2025-06-23 00:45] VITALS: BP 66/31; PULSE 124; RESP 25; O2SAT 100
--- NOTE | 2025-06-23 01:01 | PC.NURSE ---
fluids continued when pt left with ems.
--- NOTE | 2025-06-23 01:08 | PC.NURSE ---
Rody was overridden to send with EMS for continuation of care during transport to [facility] in .
--- NOTE | 2025-06-23 01:29 | DCPLANNER ---
The Patients requested the patient to go to [facility] in [facility]. I called [facility] and they asked their providers about the patient and they told Dr. Crespo the patient needed higher level of care due to the patient being a kidney transplant patient. we then called [facility] where they accepted the patient. when calling [facility] and speaking to Dylon butler he asked why we bypassed [place] alia rn told him patient request, but she was not aware of calling [facility] first because she was taking care of the patient. Dylon then called back and asked did you try flying this patient , I told Dylon that air vac declined and air vac also flys for [place] so we did not try them and Stefania stated air vac told her [employer] could not fly either. Dylon asked me to call other air services to fly the patient. when calling other places for air they declined [facility].
== END 2025-06-23 01:00 | disposition short-term general hospital (02) ==
PROVIDERS: Emergency Medicine; Emergency Provider Student in an Organized Health Care Education/Training Program; PCP Family Medicine
DX: A41.9 Sepsis, unspecified organism (principal); R65.21 Severe sepsis with septic shock; B25.9 Cytomegaloviral disease, unspecified; Z94.0 Kidney transplant status; E78.5 Hyperlipidemia, unspecified; I12.0 Hypertensive chronic kidney disease with stage 5 chronic kidney disease or end stage renal disease; N18.6 End stage renal disease; Z87.891 Personal history of nicotine dependence
CPT/HCPCS: 36415; 36556; 70450; 71045; 71260; 74177; 80053; 82803; 83605; 84145; 84484; 85025; 86140; 87040; 87077; 87150; 87186; 87205; 87637; 93005; 96365; 96366; 96367; 96375; 99285; 99291; 99292; J1720; J2020; J2185; J2405; J2598; J7030; J7040; J9999

== ENCOUNTER 2025-08-24 09:53 | Outpatient (RCR) | payer MEDICARE, SELFPAY | END 2025-08-25 23:59 | disposition home or self-care (01) | LOC: SPT 09:53 | PROVIDERS: Visit Provider Internal Medicine | DX: M62.81 Muscle weakness (generalized) (principal) | CPT/HCPCS: 97161 ==